=== PATIENT | female | born 1955 | race Caucasian/White ===

== ENCOUNTER 2017-01-28 13:57 | Inpatient (IN) ==
[2017-01-28] MEDS ORDERED: 0.9 % Sodium Chloride 1,000 ML IVC ONE ×2 (14:25→15:51)
--- NOTE | 2017-01-28 14:30 | Emergency Department Note ---
START Narrative - START START: I examined this patient and my medical decision-making was reviewed with the CARD PROCESSING CLERK/PA/Advanced Practice Nurse/Resident Physician. I agree with the documented findings, disposition and treatment plan as described except to the extent set forth below. ED attending note: Patient seen with emergency medicine resident Dr LOVING. We independently evaluated the patient. We independently had [id number] contact with the patient. Please see a copy of his note for details of the history and physical, evaluation, management and disposition of this emergency Department patient. 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 Weakness and cough as well foul-smelling urine. She has chronic Chandra which was just changed last week. Appears cloudy on the Chandra catheter 2. Patient will get a CT to rule out acute bleed she is on Plavix. Patient is type II diabetic will check for blood chemistries. We will check for causes of sepsis. Admission is strongly anticipated. Provided 40 minutes critical care service for this patient. She appears ill but not toxic. Labs and disposition pending
[2017-01-28] MEDS ORDERED: methylPREDNISolone 125 MG/2 ML VIAL IVP ONE (15:02)
[2017-01-28] MEDS ORDERED: Ipratropium/Albuterol Neb 3 ML IH ONE (15:02)
--- NOTE | 2017-01-28 15:06 | Emergency Department Note ---
Disposition Clinical Impression: Lactic acidosis, Severe sepsis, NSTEMI (non-ST elevated myocardial infarction) , Respiratory acidosis UTI (urinary tract infection) Qualifiers: Urinary tract infection type: catheter-associated UTI Indwelling urinary catheter type: indwelling urethral catheter Encounter type: initial encounter Qualified Code(s): T83.511A - Infection and inflammatory reaction due to indwelling urethral catheter, initial encounter; N39.0 - Urinary tract infection , site not specified Disposition: Admitted As Inpatient Condition: Serious Time of Disposition: 19:20 Weakness HPI - General Chief complaint: ED General Medical Stated complaint: multiple complaints Time Seen by Provider: 01/28/17 14:18 Source: patient, family, EMS Mode of arrival: wheelchair Limitations: altered mental status Nursing Notes Reviewed: Yes Vital Signs Reviewed: Yes - History of Present Illness HPI Narrative: 61-year-old female history of hypertension, hyperlipidemia, CVA, CAD status post 1 stent, diabetes on metformin, presents with generalized weakness and slurred speech last known well was yesterday. History of 4 CVAs with right- sided deficits at baseline. She denies any chest pain, has some shortness of breath, she was almost unresponsive this morning when she was trying to be woken up by her family member, and she had a blood sugar of 480 by EMS, she is normally not insulin-dependent. Patient states that she has some slurred speech as well and her family verifies that she is slurred speech but her deficits are at baseline she has complete paralysis of her right upper and lower extremity, and some facial droop at baseline. She also has a chronic Chandra catheter, this was changed one week ago, she has had this for about a year , and has had multiple urinary tract infections in the past. She has home health and takes care of her at baseline. Initially in squad she was tachypneic with a sat 63% before arrival Pt Subjective Complaint: generalized weakness/fatigue Onset (ago): hour(s) (12) Duration: intermittent Location: generalized Migration: none Pain Severity: moderate Pain Scale: 5 If pain, quality: aching Improves with: none Worsens with: none Associated symptoms: Reports: confusion. Denies: chest pain, dark stools, diaphoresis, dysuria, easy bruising, fever/chills - Related Data Home Medications Medication Instructions Recorded Confirmed Aspirin [Lo-Dose Aspirin EC] 81 mg PO DAILY 01/28/17 01/28/17 Beclomethasone Diprop 40mcg [Qvar 1 puff IH BID 01/28/17 01/28/17 40 mcg] Cholecalciferol (Vitamin D3) 1,000 unit PO DAILY 01/28/17 01/28/17 [Vitamin D] Clopidogrel [Plavix] 75 mg PO DAILY 01/28/17 01/28/17 Cyclobenzaprine [Flexeril] 10 mg PO TID PRN 01/28/17 01/28/17 Fenofibrate Nanocrystallized 160 mg PO DAILY 01/28/17 01/28/17 [Triglide] Furosemide [Lasix] 40 mg PO DAILY 01/28/17 01/28/17 Gabapentin [Neurontin] 100 mg PO TID 01/28/17 01/28/17 Guaifenesin [Mucinex] 600 mg PO BID PRN 01/28/17 01/28/17 Insulin ASPART [Novolog Flexpen] 7 unit SQ TIDAC MDD plus sliding 01/28/1701/28 sale Insulin Glargine,Hum.rec.anlog 25 unit SQ HS 01/28/17 01/28/17 [Lantus Solostar] Ipratropium/Albuterol Neb [Duoneb] 3 ml IH Q6HR PRN 01/28/17 01/28/17 Lansoprazole [Prevacid] 30 mg PO DAILY 01/28/17 01/28/17 Lisinopril [Zestril] 20 mg PO DAILY 01/28/17 01/28/17 Magnesium Oxide [Magnesium] 400 mg PO DAILY 01/28/17 01/28/17 Metformin HCl [Glucophage] 1,000 mg PO BID 01/28/17 01/28/17 Metoprolol [Lopressor] 100 mg PO BID 01/28/17 01/28/17 Multivitamin [Multi-Day Vitamins] 1 tab PO DAILY 01/28/17 01/28/17 [place]-3/Dha/Epa/Fish Oil [Fish Oil 2,000 mg PO BID 01/28/17 01/28/17 1,000 mg Softgel] Oxycodone HCl/Acetaminophen 1 tab PO Q6H PRN 01/28/17 01/28/17 [Percocet 7.5-325 mg Tablet] Petrolatum,White [Aloe [place]] 1 appl TP TID 01/28/17 01/28/17 Potassium Chloride [Klor-Con 10] 20 meq PO DAILY 01/28/17 01/28/17 Ropinirole HCl [Requip] 0.25 mg PO HS 01/28/17 01/28/17 Rosuvastatin [Crestor] 20 mg PO HS 01/28/17 01/28/17 Sertraline [Zoloft] 50 mg PO DAILY 01/28/17 01/28/17 Theophylline Anhydrous [Mateo-24] 200 mg PO DAILY 01/28/17 01/28/17 Tiotropium [Spiriva] 1 cap IH DAILY 01/28/17 01/28/17 amLODIPine [Norvasc] 5 mg PO DAILY 01/28/17 01/28/17 traZODone [TraZODone] 25 - 50 mg PO HS 01/28/17 01/28/17 Allergies Allergy/AdvReac Type Severity Reaction Status Date / Time Iodinated Contrast- Oral and Allergy Anaphylaxis Verified 11/28/16 17:51 IV Dye [Iodinated Contrast Media - Oral and] Limitations: ROS unobtainable due to patients medical condition (Review of systems minimally obtained by patient as below secondary to AMS) Cardiovascular: Reports: as per HPI, dyspnea on exertion. Denies: chest pain Respiratory: Reports: as per HPI, dyspnea Gastrointestinal: Denies: abdominal pain Genitourinary: Reports: other (catheter for urine) Musculoskeletal: Denies: back pain Neurological: Denies: headache Past Medical History - Past Medical History Attestation: Yes The following information was validated with the patient. Source: patient Medical history: Reports: cancer, CHF, COPD, coronary artery disease, CVA, DVT, diabetes, hyperlipidemia, myocardial infarction Surgical history: Reports: cancer surgery, carotid endarterectomy, coronary bypass (CABG), LE vascular intervention Psychiatric history: Reports: depression - Social History Smoking Status: Current every day smoker Smokeless Tobacco Status: No Alcohol use: Reports: none Drug use: Reports: none Physical Exam Constitutional: Obese female appears moderately hypoxic oxygen sat 84% on 2 L, Tachypneic breathing at 22 breaths per minute. Eyes: PERRLA, sclera anicteric ENT & Mouth: NCAT, normal external ears bilaterally, MMM Neck: normal inspection, neck is supple Resp: Decreased breath sounds at the bases bilaterally no evidence of retractions, tachypnea CV: RRR, no m/g/r GI: normal inspection, soft, no guarding or rigidity Back: normal inspection, no tenderness to palpation no CVA tenderness Neuro: A&O2 to self and place not date right upper extremity 0 out of 5 muscle strength, right lower extremity 0 out of 5 muscle strength; left +5/5 uE and LE strength bilaterally : Foul-smelling urine, catheter with cloudy urine in the bag and in the tube MSK: no gross deformities, normal ROM UE and LE Skin: on limited exam, skin intact with no rashes or lesions - General Limitations: no limitations, altered mental status General appearance: obese - Head Head exam: atraumatic Course Course Narrative: 59-year-old female appears very weak, hypoxic and hyperglycemic in the field 400s blood sugar, concerned about DKA and sepsis suspect urinary tract infection , we will check urinalysis, basic lab work CBC BMP lactate with time lactate, giving fluid boluses no evidence of severe sepsis at this time but if she does meet criteria for severe sepsis we will give a 30 mL Per kg bolus, denies chest pain, EKG shows early repolarization, no ischemic changes, possible old AK with Q waves in lead 3 which is consistent with her history of stents. Also had a VBG, but hydroxybutyric acid, and 3 DuoNeb nebs with solu Medrol given diminished lung sounds COPD and hypoxic. - Reevaluation(s) Reevaluation #1: Patient is evidence of respiratory acidosis as well as metabolic acidosis with lactate of 3.4, given tachypnea, tachycardia, patient meets criteria for severe sepsis with lactic acidosis, plan to start patient on DUONEBS, SATS NOW 97%, compensated resp acidosis, VANC and Zosyn fo RCoverage presumed urosepsis, currently they are unable to get a urinalysis sent because of a clot in her Chandra, but we will send this, plan to treat empirically at this point ordered 30 mL per kg bolus which is 2700 mL. Time: 15:56 Reevaluation #2: Due to hypotension only able to get 200 mL an, the patient was and uric, we placed a Chandra catheter and were able to send the urine shows evidence of UTI, given altered mental state UTI and lactic acidosis concerning for severe sepsis , given 30 mL perking bolus and started empirically on vanc and Zosyn central venous catheter was also placed, S Severe Sepsis/Septic Shock Re-Evaluation: I reassessed the patient's volume status and tissue perfusion, performing a full cardiopulmonary exam, skin examination, peripheral pulses evaluation, I assessed their vital signs and capillary refill, and based on my findings found that the patient was volume responsive to their 30mL/kg crystalloid bolus. Time: 17:19 Reevaluation #3: Additional evaluation prior to going to the floor to [facility], patient had continued bleeding out of her IJ site, I sterilely prepped this neck, and obtained verbal consent from the patient, and out was performed, then I took the dressing down, reapplied ChloraPrep, placed 2 u stitches with 2-0 Ethilon, and reapplied more ChloraPrep, placed a Biopatch, and replaced dressing, and hemostasis was achieved Time: 19:17 Vital Signs Temperature 98.4 F 01/28/17 14:07 Pulse Rate 94 01/28/17 14:07 Respiratory Rate 18 01/28/17 14:07 Blood Pressure 113/69 01/28/17 14:07 O2 Sat by Pulse Oximetry 83 01/28/17 14:07 Temperature 98.4 F 01/28/17 14:07 Pulse Rate 96 01/28/17 18:30 Respiratory Rate 16 01/28/17 18:30 Blood Pressure 148/70 01/28/17 18:30 O2 Sat by Pulse Oximetry 90 01/28/17 18:30 Oxygen Delivery Oxygen Delivery Nasal Cannula Procedures - Central Line Placement Right IJ Central Line Inserted*: Yes Central Line Catheter Replacement*: No Central Line Insertion: emergent Consent Obtained: written consent Procedural Pause: verify patient name and date of , timeout performed per policy, nasim and assess the site, assemble equipment and verify supplies, perform hand hygiene Patient Placed on Monitor/Pulse Ox: Yes During the Procedure: clinician is wearing sterile gloves, cap, mask,& gown during insertion, sterile field and sterile technique are maintained, patient's face is covered with drape or mask and wearing a cap, everyone in room is wearing a mask Central Line Prep: Chlorhexidine scrub, sterile drapes applied Prep the Procedure Site: apply chloraprep to the skin using a back and forth scrubbing motion, allow prep to dry, drape the patient with a full body drape Local Anesthetic: lidocaine 1% Amount of anesthesia used (mL): 5 Ultrasound Used for Placement: Yes Central Line Lumen Inserted: triple Post Procedure: sutured in place, good blood return, all ports aspirated, flushed, capped, sterile dressing applied, guide wire removed and visualized, dressing is dated Post Procedure X-Ray: tip of catheter in good position, no pneumothorax seen Patient Tolerated Procedure: well, no complications Complications: none Name of Clinician Inserting Central Line: Bobby Fritz DO R1 Clinician Assisting/Completing Checklist: Pacheco Crooks DO R4, Attending Dr Simental Date: 01/28/17 Time: 17:33 Weakness - MDM Narrative Medical decision making narrative: 59-year-old female with an STEMI, sepsis severe based on tahcypneic and tachycardic HR 94 Breathing 22 resp/minute on my exam, lactic acidosis 3.4, started on broad-spectrum antibiotics and 30 mL per kg bolus was given as per sepsis protocol, repeat lactatte drawn before 6 hrs in the ED she was fluid responsive after physical exam reassessment, the right IJ was placed for fluids antibiotics due to the one peripheral IV. And possible need for hemodynamic monitoring or vasopressors she did keep a good blood pressure, and was transferred to the floor to [facility] in stable condition. - Differential Diagnosis Differential Diagnosis: Likely: hypoglycemia, rhabdomyolysis, sepsis/infection, dehydration, [place] - Medical Records Medical records reviewed: Yes I reviewed the patient's medical records. - Lab Data Lab results reviewed: Yes I reviewed the patient's lab results. Result diagrams: 01/28/17 15:23 01/28/17 15:23 Lab Results 01/28/17 01/28/17 01/28/17 Range/Units 15:23 15:23 15:23 WBC 10.0 (4.3-11.1) K/mcL RBC 4.92 (3.82-4.97) M/mcL Hgb 11.4 L (11.5-15.4) g/dL Hct 39.7 (35.3-44.9) % MCV 80.7 L (83.0-100.0) fL MCH 23.2 L (28.0-33.3) pg MCHC 28.7 L (31.6-35.5) g/dL RDW 16.6 H (11.5-14.5) % Plt Count 313 (140-400) K/mcL MPV 11.6 (9.4-12.4) fL Immature Gran % 0.6 (0-4) % Seg Neutrophils % 85.1 % Lymphocytes % 11.3 % Monocytes % 2.7 % Eosinophils % 0.1 % Basophils % 0.2 % Neutrophils # 8.6 (1.6-8.9) K/mcL Lymphocytes # 1.1 (0.6-4.6) K/mcL Monocytes # 0.3 (0.0-1.3) K/mcL Eosinophils # 0.0 (0.0-0.6) K/mcL Basophils # 0.0 (0.0-0.2) K/mcL Platelet Estimate Normal (Normal) Immature Plt Fraction 9.9 H (1.1-6.1) % Polychromasia 1+ A (Not Present) PT 12.4 H (9.4-12.1) Seconds INR 1.1 APTT 28.3 (26.0-36.0) Seconds VBG pH (7.32-7.42) pH Units VBG pCO2 (41-51) mmHg VBG pO2 (25-40) mmHg VBG HCO3 (21-27) mEq/L Sodium 136 (136-145) mEq/L Potassium 3.4 L (3.5-4.5) mEq/L Chloride 93 L (98-109) mEq/L Carbon Dioxide 34 H (19-29) mEq/L BUN 13 (7-20) mg/dL Creatinine 0.88 (0.57-1.11) mg/dL Est GFR ( Amer) > 60 (> 60) Est GFR (Non-Af Amer) > 60 (> 60) BUN/Creatinine Ratio 15 (6-26) Glucose 375 H (70-99) mg/dL Calculated Osmolality 297 (280-300) Lactic Acid (0.5-2.2) mmol/L Calcium 9.0 (8.6-10.8) mg/dL Phosphorus 4.6 (2.3-4.7) mg/dL Magnesium 1.2 L (1.6-2.6) mg/dL Total Bilirubin 0.3 (0.2-1.2) mg/dL Direct Bilirubin 0.1 (0.0-0.5) mg/dL Indirect Bilirubin 0.2 (0.0-1.2) mg/dL AST 22 (5-34) Units/L ALT 14 (0-55) Units/L Alkaline Phosphatase 109 (38-126) Units/L Ammonia (18-72) mcmol/L Troponin I (0-0.03) ng/mL Serum Total Protein 8.5 H (6.0-8.3) g/dL Albumin 3.0 L (3.5-5.0) g/dL Globulin 5.5 H (2.4-3.5) g/dL Albumin/Globulin Ratio 0.5 L (1.1-2.2) Beta-Hydroxybutyric Acd (0.02-0.27) mmol/L TSH 0.464 (0.350-4.840) mcIU/mL Urine Color (Yellow) Urine Clarity (Clear) Urine pH (5.0-8.0) pH Units Ur Specific [place] (1.010-1.025) Urine Protein (Neg-Trace) mg/dL Urine Glucose (UA) (Normal) mg/dL Urine Ketones (Negative) mg/dL Urine Blood (Negative) Urine Nitrite (Negative) Urine Bilirubin (Negative) Urine Urobilinogen (Normal) mg/dL Ur Leukocyte Esterase (Negative) Urine Microscopic RBC (0-3) per hpf Urine Microscopic WBC (0-3) per hpf Ur Squamous Epith Cells (None-Few) per lpf Amorphous Sediment (Few) Urine Bacteria (None-Few) per hpf Ur Culture Indicated? (NO) Urine Opiates Screen (Ciafyb=878) ng/mL Ur Barbiturates Screen (Szrjlf=748) ng/mL Ur Phencyclidine Scrn (Cutoff=25) ng/mL Ur Amphetamines Screen (Njnuas=3165) ng/mL U Benzodiazepines Scrn (Xitgos=621) ng/mL Urine Cocaine Screen (Cutoff= 300) ng/mL U Marijuana (THC) Screen (Cutoff = 50) ng/mL Ethyl Alcohol < 10 (0-10) mg/dL 01/28/17 01/28/17 01/28/17 Range/Units 15:23 15:23 15:23 WBC (4.3-11.1) K/mcL RBC (3.82-4.97) M/mcL Hgb (11.5-15.4) g/dL Hct (35.3-44.9) % MCV (83.0-100.0) fL MCH (28.0-33.3) pg MCHC (31.6-35.5) g/dL RDW (11.5-14.5) % Plt Count (140-400) K/mcL MPV (9.4-12.4) fL Immature Gran % (0-4) % Seg Neutrophils % % Lymphocytes % % Monocytes % % Eosinophils % % Basophils % % Neutrophils # (1.6-8.9) K/mcL Lymphocytes # (0.6-4.6) K/mcL Monocytes # (0.0-1.3) K/mcL Eosinophils # (0.0-0.6) K/mcL Basophils # (0.0-0.2) K/mcL Platelet Estimate (Normal) Immature Plt Fraction (1.1-6.1) % Polychromasia (Not Present) PT (9.4-12.1) Seconds INR APTT (26.0-36.0) Seconds VBG pH (7.32-7.42) pH Units VBG pCO2 (41-51) mmHg VBG pO2 (25-40) mmHg VBG HCO3 (21-27) mEq/L Sodium (136-145) mEq/L Potassium (3.5-4.5) mEq/L Chloride (98-109) mEq/L Carbon Dioxide (19-29) mEq/L BUN (7-20) mg/dL Creatinine (0.57-1.11) mg/dL Est GFR ( Amer) (> 60) Est GFR (Non-Af Amer) (> 60) BUN/Creatinine Ratio (6-26) Glucose (70-99) mg/dL Calculated Osmolality (280-300) Lactic Acid 3.2 H (0.5-2.2) mmol/L Calcium (8.6-10.8) mg/dL Phosphorus (2.3-4.7) mg/dL Magnesium (1.6-2.6) mg/dL Total Bilirubin (0.2-1.2) mg/dL Direct Bilirubin (0.0-0.5) mg/dL Indirect Bilirubin (0.0-1.2) mg/dL AST (5-34) Units/L ALT (0-55) Units/L Alkaline Phosphatase (38-126) Units/L Ammonia 22 (18-72) mcmol/L Troponin I 0.19 H* (0-0.03) ng/mL Serum Total Protein (6.0-8.3) g/dL Albumin (3.5-5.0) g/dL Globulin (2.4-3.5) g/dL Albumin/Globulin Ratio (1.1-2.2) Beta-Hydroxybutyric Acd (0.02-0.27) mmol/L TSH (0.350-4.840) mcIU/mL Urine Color (Yellow) Urine Clarity (Clear) Urine pH (5.0-8.0) pH Units Ur Specific [place] (1.010-1.025) Urine Protein (Neg-Trace) mg/dL Urine Glucose (UA) (Normal) mg/dL Urine Ketones (Negative) mg/dL Urine Blood (Negative) Urine Nitrite (Negative) Urine Bilirubin (Negative) Urine Urobilinogen (Normal) mg/dL Ur Leukocyte Esterase (Negative) Urine Microscopic RBC (0-3) per hpf Urine Microscopic WBC (0-3) per hpf Ur Squamous Epith Cells (None-Few) per lpf Amorphous Sediment (Few) Urine Bacteria (None-Few) per hpf Ur Culture Indicated? (NO) Urine Opiates Screen (Bjadcf=000) ng/mL Ur Barbiturates Screen (Nkmirt=211) ng/mL Ur Phencyclidine Scrn (Cutoff=25) ng/mL Ur Amphetamines Screen (Wenmwn=8555) ng/mL U Benzodiazepines Scrn (Crldfa=000) ng/mL Urine Cocaine Screen (Cutoff= 300) ng/mL U Marijuana (THC) Screen (Cutoff = 50) ng/mL Ethyl Alcohol (0-10) mg/dL 01/28/17 01/28/17 01/28/17 Range/Units 15:23 15:23 16:20 WBC (4.3-11.1) K/mcL RBC (3.82-4.97) M/mcL Hgb (11.5-15.4) g/dL Hct (35.3-44.9) % MCV (83.0-100.0) fL MCH (28.0-33.3) pg MCHC (31.6-35.5) g/dL RDW (11.5-14.5) % Plt Count (140-400) K/mcL MPV (9.4-12.4) fL Immature Gran % (0-4) % Seg Neutrophils % % Lymphocytes % % Monocytes % % Eosinophils % % Basophils % % Neutrophils # (1.6-8.9) K/mcL Lymphocytes # (0.6-4.6) K/mcL Monocytes # (0.0-1.3) K/mcL Eosinophils # (0.0-0.6) K/mcL Basophils # (0.0-0.2) K/mcL Platelet Estimate (Normal) Immature Plt Fraction (1.1-6.1) % Polychromasia (Not Present) PT (9.4-12.1) Seconds INR APTT (26.0-36.0) Seconds VBG pH 7.28 L (7.32-7.42) pH Units VBG pCO2 78 H (41-51) mmHg VBG pO2 33 (25-40) mmHg VBG HCO3 36.7 H (21-27) mEq/L Sodium (136-145) mEq/L Potassium (3.5-4.5) mEq/L Chloride (98-109) mEq/L Carbon Dioxide (19-29) mEq/L BUN (7-20) mg/dL Creatinine (0.57-1.11) mg/dL Est GFR ( Amer) (> 60) Est GFR (Non-Af Amer) (> 60) BUN/Creatinine Ratio (6-26) Glucose (70-99) mg/dL Calculated Osmolality (280-300) Lactic Acid (0.5-2.2) mmol/L Calcium (8.6-10.8) mg/dL Phosphorus (2.3-4.7) mg/dL Magnesium (1.6-2.6) mg/dL Total Bilirubin (0.2-1.2) mg/dL Direct Bilirubin (0.0-0.5) mg/dL Indirect Bilirubin (0.0-1.2) mg/dL AST (5-34) Units/L ALT (0-55) Units/L Alkaline Phosphatase (38-126) Units/L Ammonia (18-72) mcmol/L Troponin I (0-0.03) ng/mL Serum Total Protein (6.0-8.3) g/dL Albumin (3.5-5.0) g/dL Globulin (2.4-3.5) g/dL Albumin/Globulin Ratio (1.1-2.2) Beta-Hydroxybutyric Acd 0.27 (0.02-0.27) mmol/L TSH (0.350-4.840) mcIU/mL Urine Color Yellow (Yellow) Urine Clarity Turbid A (Clear) Urine pH 5.0 (5.0-8.0) pH Units Ur Specific [place] 1.024 (1.010-1.025) Urine Protein 100 H (Neg-Trace) mg/dL Urine Glucose (UA) >=1000 H (Normal) mg/dL Urine Ketones Negative (Negative) mg/dL Urine Blood Large H (Negative) Urine Nitrite Negative (Negative) Urine Bilirubin Negative (Negative) Urine Urobilinogen Normal (Normal) mg/dL Ur Leukocyte Esterase Moderate H (Negative) Urine Microscopic RBC TNTC H (0-3) per hpf Urine Microscopic WBC 15-30 H (0-3) per hpf Ur Squamous Epith Cells Few (None-Few) per lpf Amorphous Sediment Many H (Few) Urine Bacteria Many H (None-Few) per hpf Ur Culture Indicated? YES A (NO) Urine Opiates Screen (Uadlmz=464) ng/mL Ur Barbiturates Screen (Fdchwr=909) ng/mL Ur Phencyclidine Scrn (Cutoff=25) ng/mL Ur Amphetamines Screen (Zlobdf=7373) ng/mL U Benzodiazepines Scrn (Iydmfc=149) ng/mL Urine Cocaine Screen (Cutoff= 300) ng/mL U Marijuana (THC) Screen (Cutoff = 50) ng/mL Ethyl Alcohol (0-10) mg/dL 01/28/17 Range/Units 16:20 WBC (4.3-11.1) K/mcL RBC (3.82-4.97) M/mcL Hgb (11.5-15.4) g/dL Hct (35.3-44.9) % MCV (83.0-100.0) fL MCH (28.0-33.3) pg MCHC (31.6-35.5) g/dL RDW (11.5-14.5) % Plt Count (140-400) K/mcL MPV (9.4-12.4) fL Immature Gran % (0-4) % Seg Neutrophils % % Lymphocytes % % Monocytes % % Eosinophils % % Basophils % % Neutrophils # (1.6-8.9) K/mcL Lymphocytes # (0.6-4.6) K/mcL Monocytes # (0.0-1.3) K/mcL Eosinophils # (0.0-0.6) K/mcL Basophils # (0.0-0.2) K/mcL Platelet Estimate (Normal) Immature Plt Fraction (1.1-6.1) % Polychromasia (Not Present) PT (9.4-12.1) Seconds INR APTT (26.0-36.0) Seconds VBG pH (7.32-7.42) pH Units VBG pCO2 (41-51) mmHg VBG pO2 (25-40) mmHg VBG HCO3 (21-27) mEq/L Sodium (136-145) mEq/L Potassium (3.5-4.5) mEq/L Chloride (98-109) mEq/L Carbon Dioxide (19-29) mEq/L BUN (7-20) mg/dL Creatinine (0.57-1.11) mg/dL Est GFR ( Amer) (> 60) Est GFR (Non-Af Amer) (> 60) BUN/Creatinine Ratio (6-26) Glucose (70-99) mg/dL Calculated Osmolality (280-300) Lactic Acid (0.5-2.2) mmol/L Calcium (8.6-10.8) mg/dL Phosphorus (2.3-4.7) mg/dL Magnesium (1.6-2.6) mg/dL Total Bilirubin (0.2-1.2) mg/dL Direct Bilirubin (0.0-0.5) mg/dL Indirect Bilirubin (0.0-1.2) mg/dL AST (5-34) Units/L ALT (0-55) Units/L Alkaline Phosphatase (38-126) Units/L Ammonia (18-72) mcmol/L Troponin I (0-0.03) ng/mL Serum Total Protein (6.0-8.3) g/dL Albumin (3.5-5.0) g/dL Globulin (2.4-3.5) g/dL Albumin/Globulin Ratio (1.1-2.2) Beta-Hydroxybutyric Acd (0.02-0.27) mmol/L TSH (0.350-4.840) mcIU/mL Urine Color (Yellow) Urine Clarity (Clear) Urine pH (5.0-8.0) pH Units Ur Specific [place] (1.010-1.025) Urine Protein (Neg-Trace) mg/dL Urine Glucose (UA) (Normal) mg/dL Urine Ketones (Negative) mg/dL Urine Blood (Negative) Urine Nitrite (Negative) Urine Bilirubin (Negative) Urine Urobilinogen (Normal) mg/dL Ur Leukocyte Esterase (Negative) Urine Microscopic RBC (0-3) per hpf Urine Microscopic WBC (0-3) per hpf Ur Squamous Epith Cells (None-Few) per lpf Amorphous Sediment (Few) Urine Bacteria (None-Few) per hpf Ur Culture Indicated? (NO) Urine Opiates Screen Negative (Frhggm=940) ng/mL Ur Barbiturates Screen Negative (Shkkeb=680) ng/mL Ur Phencyclidine Scrn Negative (Cutoff=25) ng/mL Ur Amphetamines Screen Negative (Zmxipf=7167) ng/mL U Benzodiazepines Scrn Negative (Ilbvtw=084) ng/mL Urine Cocaine Screen Negative (Cutoff= 300) ng/mL U Marijuana (THC) Screen Negative (Cutoff = 50) ng/mL Ethyl Alcohol (0-10) mg/dL - EKG Data EKG attestation: Yes I reviewed and interpreted this EKG. EKG shows normal: sinus rhythm Rate: normal (94 bpm WI 156 QRS 112 QTc 457 early repolarization inferior leads with no reciprocal changes) Q waves: III When compared to previous EKG there are: previous EKG unavailable Interpretation: nonspecific ST-T wave changes - Core Measures AMI Core Measures Followed: No
[2017-01-28 15:35] LABS: Eosinophils % 0.1 %; Hematocrit 39.7 % (35.3-44.9); Hemoglobin 11.4 g/dL (11.5-15.4); Immature Platelets 9.9 % (1.1-6.1); Mean Corpuscular HGB Conc 28.7 g/dL (31.6-35.5); Mean Corpuscular Hemoglobin 23.2 pg (28.0-33.3); Mean Corpuscular Volume 80.7 fL (83.0-100.0); Mean Platelet Volume 11.6 fL (9.4-12.4); Monocytes # 0.3 K/mcL (0.0-1.3); Platelet Count 313 K/mcL (140-400); Red Blood Count 4.92 M/mcL (3.82-4.97); Red Cell Distribution Width 16.6 % (11.5-14.5)
[2017-01-28 15:36] LABS: VBG HCO3 36.7 mEq/L (21-27); VBG PH 7.28 pH Units (7.32-7.42)
[2017-01-28 15:37] LABS: Basophils % 0.2 %; Immature Granulocytes % 0.6 % (0-4); Lymphocytes % 11.3 %; Monocytes % 2.7 %; Neutrophils # 8.6 K/mcL (1.6-8.9); Segmented Neutrophils % 85.1 %
[2017-01-28 15:39] LABS: INR 1.1; Lymphocytes # 1.1 K/mcL (0.6-4.6); Prothrombin Time 12.4 Seconds (9.4-12.1)
[2017-01-28 15:41] LABS: Activated Partial Thrombo Time 28.3 Seconds (26.0-36.0)
[2017-01-28 15:50] LABS: Alanine Aminotransferase 14 Units/L (0-55); Albumin/Globulin Ratio 0.5 (1.1-2.2); Alkaline Phosphatase 109 Units/L (38-126); Aspartate Amino Transferase 22 Units/L (5-34); BUN/Creatinine Ratio 15 (6-26); Bilirubin,Direct 0.1 mg/dL (0.0-0.5); Bilirubin,Indirect 0.2 mg/dL (0.0-1.2); Bilirubin,Total 0.3 mg/dL (0.2-1.2); Blood Urea Nitrogen 13 mg/dL (7-20); Carbon Dioxide 34 mEq/L (19-29); Chloride 93 mEq/L (98-109); Globulin 5.5 g/dL (2.4-3.5); Glucose 375 mg/dL (70-99); Osmolality,Calculated 297 (280-300); Potassium 3.4 mEq/L (3.5-4.5); Sodium 136 mEq/L (136-145); Total Protein 8.5 g/dL (6.0-8.3); eGFR For African Americans > 60 (> 60); eGFR For Non-African Americans > 60 (> 60)
[2017-01-28 15:52] LABS: Ethanol < 10 mg/dL (0-10)
[2017-01-28] MEDS ORDERED: Vancomycin 1,000 MG in D5% in Water 250 ML IVPB ONE (15:53)
[2017-01-28] MEDS ORDERED: Piperacillin/Tazobactam 3.375 GM in D5% in Water (Mini-Bag+) 100 ML IVPB ONE (15:53)
[2017-01-28] MEDS ORDERED: Insulin Human Regular 10 UNIT in 0.9 % Sodium Chloride 10 ML IV ONE (15:54)
[2017-01-28 16:05] LABS: Magnesium 1.2 mg/dL (1.6-2.6); Phosphorous 4.6 mg/dL (2.3-4.7)
[2017-01-28 16:10] LABS: Thyroid Stimulating Hormone 0.464 mcIU/mL (0.350-4.840)
[2017-01-28 16:18] LABS: Platelet Estimate Normal (Normal); Polychromasia 1+ (Not Present)
[2017-01-28] MEDS ORDERED: Aspirin 81 MG TAB.CHEW PO STA (16:18)
[2017-01-28 16:29] LABS: Bilirubin,Urine Negative (Negative); Blood,Urine Large (Negative); Clarity,Urine Turbid (Clear); Color,Urine Yellow (Yellow); Glucose,Urine (UA) >=1000 mg/dL (Normal); Ketones,Urine Negative (Negative); Leukocyte Esterase,Urine Moderate (Negative); Nitrite,Urine Negative (Negative); Protein,Urine 100 mg/dL (Neg-Trace); Specific Gravity,Urine 1.024 (1.010-1.025); Urobilinogen,Urine Normal (Normal)
[2017-01-28 16:35] LABS: Amphetamine Screen,Urine Negative ng/mL (Cutoff=1000); Barbiturate Screen,Urine Negative ng/mL (Cutoff=200); Benzodiazepines Screen,Urine Negative ng/mL (Cutoff=200); Cannabinoid Screen,Urine Negative ng/mL (Cutoff = 50); Cocaine Screen,Urine Negative ng/mL (Cutoff= 300); Opiate Screen,Urine Negative ng/mL (Cutoff=300); Phencyclidine Screen,Urine Negative ng/mL (Cutoff=25)
[2017-01-28 16:40] LABS: RBC,Urine TNTC per hpf (0-3)
[2017-01-28 16:45] LABS: WBC,Urine 15-30 per hpf (0-3)
[2017-01-28 16:46] LABS: Amorphous Sediment,Urine Many (Few); Bacteria,Urine Many per hpf (None-Few); Squamous Epithelial Cell,Urine Few per lpf (None-Few)
[2017-01-28] MEDS ORDERED: Lidocaine/EPI 1:100k 1% 50 ML VIAL INFILT ONE (18:47)
[2017-01-28] MEDS ORDERED: Lidocaine/EPI 1:200k 1% PF 10 ML VIAL ONE (18:50)
[2017-01-28] MEDS ORDERED: Acetaminophen 325 MG TABLET PO PRN (21:20)
[2017-01-28] MEDS ORDERED: *HR* Morphine 2 MG/ML SYRINGE IVP PRN (21:20)
[2017-01-28] MEDS ORDERED: Naloxone 0.4 MG/ML INJ IVP PRN (21:20)
[2017-01-28] MEDS ORDERED: Ondansetron 4 MG/2 ML VIAL IVP PRN (21:20)
[2017-01-28] MEDS ORDERED: 0.9 % Sodium Chloride w KCl 20 MEQ/1,000 ML MLS IVC SCH (21:45)
[2017-01-28] MEDS ORDERED: Dextrose Gel 15 GM PO PRN ×2 (21:51)
[2017-01-28] MEDS ORDERED: D5% in Water 1,000 ML IVC PRN (21:51)
[2017-01-28] MEDS ORDERED: *HR* Dextrose 50 % in Water (Syg) 50 ML SYRINGE IVP PRN (21:51)
--- NOTE | 2017-01-28 22:53 | Internal Med History&Physical ---
<NaomyjadajazlynLuis kent - Last Filed: 01/28/17 23:35> Date of Encounter: 01/28/17 Time of Encounter: 21:00 Assessment and Plan (1) Elevated troponin Current visit: Yes Status: Acute Patient presents with initial troponin of 0.19. Patient denies any chest pain or cardiac symptoms. EKG shows sinus rhythm with possible left atrial enlargement and inferior myocardial infarction (probably old). Patient to be placed on continuous cardiac telemetry with supplemental O2 and continuous SPO2 monitoring. Troponins to be trended 2. (2) SOB (shortness of breath) Current visit: Yes Status: Acute Patient presents with acute on chronic shortness of breath related to her current symptoms and history of COPD. Patient reports she currently smokes 3 PPD. Supplemental O2 at 3L with titration if SpO2 < 92% and continuous SpO2 monitoring ordered. DuoNebs Q4 ordered. Will monitor patient and vital signs. (3) UTI (urinary tract infection) Current visit: Yes Status: Acute Patient presents with history of chronic Chandra catheterization and UTIs. Patient 's initial urinalysis in ED shows need for urine cultures. IV ceftriaxone ordered for infection coverage. Follow-up labs ordered to monitor WBCs and lactic acid. Patient's WBC is 10.0, HR 94, RR 16. Patient does not currently meet sepsis criteria but will be monitored closely for signs of increased infection. Qualifiers: Urinary tract infection type: catheter-associated UTI Indwelling urinary catheter type: indwelling urethral catheter Encounter type: initial encounter Qualified Code(s): T83.511A - Infection and inflammatory reaction due to indwelling urethral catheter, initial encounter; N39.0 - Urinary tract infection , site not specified (4) HTN (hypertension) Current visit: Yes Status: Chronic Patient presents with history of chronic hypertension. Will monitor patient and vital signs and continue patient's Norvasc, lisinopril, and metoprolol. Qualifiers: Hypertension type: essential hypertension Qualified Code(s): I10 - Essential (primary) hypertension (5) HLD (hyperlipidemia) Current visit: Yes Status: Chronic Patient presents with history of chronic hyperlipidemia. Lipid panel ordered. Will continue patient's Crestor and Tricor. Qualifiers: Hyperlipidemia type: pure hypercholesterolemia Qualified Code(s): E78.00 - Pure hypercholesterolemia, unspecified; E78.0 - Pure hypercholesterolemia (6) Diabetes Current visit: Yes Status: Chronic Patient presents with history of chronic diabetes with insulin dependency that is uncontrolled. Patient's blood glucose on admission was 375. Will hold patient 's Metformin and order ow dose insulin sliding scale with hypoglycemic protocol. Diabetes education consult ordered. A1c ordered. Qualifiers: Diabetes mellitus type: type 2 Diabetes mellitus complication status: with unspecified complications Diabetes mellitus chcf insulin use: with chcf use Qualified Code(s): E11.8 - Type 2 diabetes mellitus with unspecified complications; Z79.4 - CHCF (current) use of insulin (7) DVT prophylaxis Current visit: Yes Status: Acute Patient to be placed on DVT prophylaxis due to admission protocol, bed rest status, and history of DVT. Heparin 5,000 units SQ Q12 ordered. Internal Medicine - H&P: HPI Chief complaint: AMS, generalized weakness Admitted From: Emergency Dept Plans for Post Hospital Care: Home History of present illness: Mrs. Lauren is a 61 year old female who presents from the ED with chief complaint of altered mental status, generalized weakness, and slurred speech. Patient had previous stroke which left right-sided paralysis. Patient's family states that her speech is residual effect of previous stroke, but her behavior is not her normal behavior. Patient's blood glucose was 480 as taken by EMS and was 375 on admission to the ED. Patient also has a Chandra catheter in place chronically due to previous stroke which has been in place for a year and changed last week. She reports multiple UTIs throughout the previous year. She denies recent illness, fever, chills, chest pain, nausea, vomiting, diarrhea, abdominal pain, dizziness, or syncope. Patient is short of breath during examination which her family states is also her baseline and that she uses home O2 at 3L daily via nasal cannula. Patient's initial troponin is 0.19 and lactic acid 3.2. Initial urinalysis indicates the need for urine cultures. CT of the head/brain w/o contrast in the ED shows no evidence of intracranial hemorrhage or mass effect. Patient will receive chest pain work-up with continuous cardiac telemetry, continuation of supplemental O2 and SpO2 monitoring, and trended troponins x2. Blood and urine cultures ordered and patient to receive IV ceftriaxone for infection coverage. Patient's potassium is currently 3.4 and magnesium is 1.2 so she will receive IV fluids with potassium and PO magnesium. Follow-up labs ordered for a.m. Patient is at high risk for infection based on history of UTIs and current symptoms and will be placed as inpatient status. Consults for PT, OT, Speech therapy, and [employer] placed. Patient to be monitored closely for increased signs of infection, respiratory and/or cardiac distress. Time spent with patient > 40 minutes. Past Med Surg Social Fam HX - Past Medical History Source: patient Medical history: cancer, CHF, COPD, coronary artery disease, CVA, DVT, diabetes , hyperlipidemia, myocardial infarction Psychiatric history: depression - Past Surgical History Surgical History: cancer surgery, carotid endarterectomy, coronary bypass (CABG) , LE vascular intervention - Social History Smoking Status: Current every day smoker Packs per day: 3 PPD Smokeless Tobacco Status: No Alcohol use: none Drug use: none Current living situation: Home, With Family Activity Level: Wheelchair bound Recent Out of Country Travel Within the Last 8 Weeks: No Exposure or Possible Exposure to Illness During Travel: No - Family History Mother Living Status: Hx Family Cancer: Yes (Renal) Hx Family Endocrine Disorder: Yes (DM) Internal Medicine - H&P: Meds Aspirin [Lo-Dose Aspirin EC] 81 mg PO DAILY 01/28/17 [History] Beclomethasone Diprop 40mcg [Qvar 40 mcg] 1 puff IH BID 01/28/17 [History] Cholecalciferol (Vitamin D3) [Vitamin D] 1,000 unit PO DAILY 01/28/17 [History] Clopidogrel [Plavix] 75 mg PO DAILY 01/28/17 [History] Cyclobenzaprine [Flexeril] 10 mg PO TID PRN 01/28/17 [History] Fenofibrate Nanocrystallized [Triglide] 160 mg PO DAILY 01/28/17 [History] Furosemide [Lasix] 40 mg PO DAILY 01/28/17 [History] Gabapentin [Neurontin] 100 mg PO TID 01/28/17 [History] Guaifenesin [Mucinex] 600 mg PO BID PRN 01/28/17 [History] Insulin ASPART [Novolog Flexpen] 7 unit SQ TIDAC MDD plus sliding sale 01/28/17 [History] Insulin Glargine,Hum.rec.anlog [Lantus Solostar] 25 unit SQ HS 01/28/17 [History ] Ipratropium/Albuterol Neb [Duoneb] 3 ml IH Q6HR PRN 01/28/17 [History] Lansoprazole [Prevacid] 30 mg PO DAILY 01/28/17 [History] Lisinopril [Zestril] 20 mg PO DAILY 01/28/17 [History] Magnesium Oxide [Magnesium] 400 mg PO DAILY 01/28/17 [History] Metformin HCl [Glucophage] 1,000 mg PO BID 01/28/17 [History] Metoprolol [Lopressor] 100 mg PO BID 01/28/17 [History] Multivitamin [Multi-Day Vitamins] 1 tab PO DAILY 01/28/17 [History] [place]-3/Dha/Epa/Fish Oil [Fish Oil 1,000 mg Softgel] 2,000 mg PO BID 01/28/17 [ History] Oxycodone HCl/Acetaminophen [Percocet 7.5-325 mg Tablet] 1 tab PO Q6H PRN [History] Petrolatum,White [Aloe [place]] 1 appl TP TID 01/28/17 [History] Potassium Chloride [Klor-Con 10] 20 meq PO DAILY 01/28/17 [History] Ropinirole HCl [Requip] 0.25 mg PO HS 01/28/17 [History] Rosuvastatin [Crestor] 20 mg PO HS 01/28/17 [History] Sertraline [Zoloft] 50 mg PO DAILY 01/28/17 [History] Theophylline Anhydrous [Mateo-24] 200 mg PO DAILY 01/28/17 [History] Tiotropium [Spiriva] 1 cap IH DAILY 01/28/17 [History] amLODIPine [Norvasc] 5 mg PO DAILY 01/28/17 [History] traZODone [TraZODone] 25 - 50 mg PO HS 01/28/17 [History] Allergies Iodinated Contrast- Oral and IV Dye [Iodinated Contrast Media - Oral and] Allergy (Verified 11/28/16 17:51) Anaphylaxis All Systems PM: A 10-system review of systems was performed and is negative for pertinent findings except as documented above in the HPI. - Constitutional Constitutional: no chills, no fever(s), no night sweats - EENT Eyes: no change in vision, no discharge, no pain, no photophobia Ears: no ear discharge, no ear pain, no tinnitus Nose, mouth and throat: no dysphagia, no nasal discharge, no neck pain, no sore throat - Breasts Breasts: as per HPI - Cardiovascular Cardiovascular ROS IM: as per HPI, dyspnea, no chest pain, no diaphoresis, no lightheadedness, no palpitations, no syncope - Respiratory Respiratory: as per HPI, dyspnea - Gastrointestinal Gastrointestinal: no abdominal pain, no diarrhea, no hematemesis, no hematochezia, no melena, no nausea, no vomiting - Genitourinary Genitourinary: no change in urinary stream, no dysuria, no flank pain, no hematuria Menstruation: as per HPI - Musculoskeletal Musculoskeletal ROS IM: no numbness, no tingling - Integumentary Integumentary IM: no rash, no unusual bruising - Neurological Neurological ROS: as per HPI, confusion, focal weakness, numbness, weakness ( Right-sided) - Psychiatric Psychiatric: as per HPI - Endocrine Endocrine IM: as per HPI - Hematologic/Lymphatic Hematologic/Lymphatic: no easy bruising - Allergic/Immunologic Allergic/Immunologic: as per HPI - Constitutional Vitals: Temp Pulse Resp BP Pulse Ox 98.5 F 99 20 165/80 87 01/28/17 20:01 01/28/17 20:01 01/28/17 20:01 01/28/17 20:01 01/28/17 20:01 General appearance: Present: cooperative, A&O X 3, pleasant, no acute distress, obese, answers questions appropriately - Head Head exam: Present: atraumatic, normocephalic - Eye Eye exam: Present: PERRL, conjuntiva pink, sclera anicteric Pupils: Present: PERRL - ENT ENT exam: Present: normal exam, normal external ear exam - Neck Neck exam general surgery: Present: normal inspection - Respiratory Respiratory exam: Present: CTAB. Absent: accessory muscle use, rales, rhonchi, wheezes - Cardiovascular Cardiovascular exam: Present: RRR, +S1, +S2. Absent: diastolic murmur, gallop, rubs, systolic murmur - GI/Abdominal GI/Abdominal exam: Present: normal bowel sounds, soft, no peritoneal signs. Absent: distended, tenderness - Rectal Rectal exam: Present: deferred - Additional comments: exam deferred. - Extremities Exam Extremities exam: Present: pedal edema (Right leg is cool, edematous, and has reduced pulse. ). Absent: calf tenderness, cyanotic - Back Exam Back exam: Present: normal inspection - Neurological Exam Neurological exam: Present: alert, oriented X3, strengths equal and symetr throughout (Right-sided paralysis from previous stroke), facial droop (Residual from previous stroke), speech deficit (Residual from previous stroke) - Psychiatric Psychiatric exam: Present: normal affect, normal mood - Skin Skin exam: Present: dry, intact Internal Med - H&P Results - Labs CBC & Chem 7: 01/28/17 15:23 01/28/17 15:23 - EKG Data EKG shows normal: sinus rhythm - EKG Data Prior EKG available for review: no EKG comments: 01/28/17 23:15 EKG dated 01/28/17 shows sinus rhythm with possible left atrial enlargement and inferior myocardial infarction (probably old). - Diagnostic Studies CT scan - head Additional comments: Impressions Head CT 01/28/17 14:25 IMPRESSION: No evidence of intracranial hemorrhage or mass effect. Remote right parietal occipital infarct and left cerebellar infarcts are again seen as well as white matter changes consistent with chronic small vessel ischemic disease. No obvious acute infarct. D/ / Mirna Powers MD / Mirna Powers MD Interpreting Provider: Mirna Powers MD Chest x-ray Additional comments: Impressions Chest X-Ray 01/28/17 14:25 IMPRESSION: 1. No acute abnormality detected. D/ / Jatin Chavira MD / Jatin Chavira MD Interpreting Provider: Jatin Chavira MD Chest X-Ray 01/28/17 17:06 IMPRESSION: Right internal jugular central venous catheter placement with tip projecting over the lower superior vena cava. No evidence of complication. D/ / Mirna Powers MD / Mirna Powers MD Interpreting Provider: Mirna Powers MD <Beverly Fraga - Last Filed: 01/29/17 00:45> Date of Encounter: 01/28/17 Time of Encounter: 21:15 Internal Medicine - H&P: HPI History of present illness: Ms. Lauren is a 61 year old female All Systems PM: A 10-system review of systems was performed and is negative for pertinent findings except as documented above in the HPI. - Constitutional Vitals: Temp Pulse Resp BP Pulse Ox 98.5 F 99 20 165/80 87 01/28/17 20:01 01/28/17 20:01 01/28/17 20:01 01/28/17 20:01 01/28/17 20:01 Internal Med - H&P Results - Labs CBC & Chem 7: 01/28/17 15:23 01/28/17 15:23 - Attending Attestation I examined this patient and my medical decision-making was reviewed with the nurse practitioner. I agree with the documented history of present illness, review of systems, past medical, surgical social and family histories and examination findings, disposition and treatment plan as described above except to any changes set forth below. 61-year-old female patient with history of essential hypertension, hyperlipidemia, diabetes mellitus type 2 presented to the ED with complaints of some confusion along with an episode of slurred speech. Patient has history of prior CVA with right-sided residual hemiparesis. Presently patient's speech is back to normal. In the ER, she was noticed to have significantly elevated blood sugars. CT scan of the head did not show any acute stroke. She denies any chest pain but her troponins were elevated on presentation at 0.19. On examination, heart sounds were normal. Patient is awake alert and oriented. Patient has right-sided pedal edema with some stasis dermatitis. Abdomen is soft and nontender. EKG shows sinus rhythm. With Q waves in the inferior leads. CT head shows remote right parietal occipital infarcts and left cerebellar infarcts. No acute infarct. Sepsis: Patient presenting with sepsis related to acute urinary tract infection. She does have elevated lactate level. We will trend lactate. IV hydration. Treat with intravenous antibiotics. Patient has had prior cultures positive for Proteus. This was sensitive to ceftriaxone. We will continue the same antibiotic for now. Elevated troponin: No chest pain. No abnormal EKG changes. We will trend troponins. If this rises further, will treat for possible acute non-ST elevation CO and consult cardiology. Otherwise this could be related to demand ischemia. Essential hypertension: Monitor blood pressure. Currently elevated. Continue home medications. Diabetes mellitus type 2: Uncontrolled. Will place patient on sliding scale insulin and long-acting insulin coverage. Diabetic diet. Monitor blood sugars closely. Hypokalemia and hypomagnesemia: Will replete.
[2017-01-28] MEDS ORDERED: Insulin LISPRO 300 UNITS/3 ML VIAL SQ SCH (23:00)
[2017-01-28] MEDS: Gabapentin 100 MG CAPSULE PO SCH (23:05)
[2017-01-28] MEDS: rOPINIRole 0.25 MG TABLET PO SCH (23:05)
[2017-01-28] MEDS: Magnesium Oxide 400 MG TABLET PO SCH (23:05)
[2017-01-28] MEDS: Metoprolol 100 MG TABLET PO SCH (23:05)
[2017-01-28] MEDS: Ipratropium/Albuterol Neb 3 ML IH SCH (23:09)
[2017-01-29] MEDS ORDERED: 0.9 % Sodium Chloride 1,000 ML IVC ONE (01:52)
[2017-01-29] MEDS: *HR* Enoxaparin 80 MG/0.8 ML SYRINGE SQ SCH ×3 (02:35→16:43)
[2017-01-29] MEDS: Insulin DETEMIR 100 UNIT/ML X5UNITS SQ SCH ×3 (02:35→22:24)
[2017-01-29] MEDS: Ipratropium/Albuterol Neb 3 ML IH SCH ×5 (03:46→20:53)
[2017-01-29 04:56] LABS: Hemoglobin 10.1 g/dL (11.5-15.4)
[2017-01-29 04:58] LABS: Basophils % 0.1 %; Hematocrit 34.2 % (35.3-44.9); Immature Granulocytes % 0.8 % (0-4); Lymphocytes # 0.7 K/mcL (0.6-4.6); Lymphocytes % 8.2 %; Mean Corpuscular HGB Conc 29.5 g/dL (31.6-35.5); Mean Corpuscular Hemoglobin 23.7 pg (28.0-33.3); Mean Corpuscular Volume 80.3 fL (83.0-100.0); Monocytes # 0.3 K/mcL (0.0-1.3); Monocytes % 3.8 %; Neutrophils # 7.8 K/mcL (1.6-8.9); Platelet Count 274 K/mcL (140-400); Red Blood Count 4.26 M/mcL (3.82-4.97); Red Cell Distribution Width 16.7 % (11.5-14.5); Segmented Neutrophils % 87.1 %
[2017-01-29 05:09] LABS: INR 1.2; Prothrombin Time 12.7 Seconds (9.4-12.1)
[2017-01-29 05:10] LABS: BUN/Creatinine Ratio 14 (6-26); Blood Urea Nitrogen 11 mg/dL (7-20); Calcium 8.1 mg/dL (8.6-10.8); Carbon Dioxide 30 mEq/L (19-29); Chloride 99 mEq/L (98-109); Cholesterol 112 mg/dL (< 200); Glucose 467 mg/dL (70-99); HDL Cholesterol 28 mg/dL (40-59); LDL Cholesterol,Calculated 42 mg/dL (0-99); Magnesium 1.2 mg/dL (1.6-2.6); Osmolality,Calculated 304 (280-300); Potassium 3.5 mEq/L (3.5-4.5); Sodium 137 mEq/L (136-145); Triglycerides 208 mg/dL (< 150); eGFR For African Americans > 60 (> 60); eGFR For Non-African Americans > 60 (> 60)
[2017-01-29 05:12] LABS: Activated Partial Thrombo Time 30.3 Seconds (26.0-36.0)
[2017-01-29 05:35] LABS: Anisocytosis 1+ (Not Present); Hypochromasia Present (Not Present); Platelet Estimate Normal (Normal); Poikilocytosis 1+ (Not Present); Polychromasia 1+ (Not Present)
[2017-01-29 05:47] LABS: Hemoglobin A1C 9.7 %
[2017-01-29] MEDS ORDERED: *HR* Heparin 5,000 UNIT/ML VIAL SQ SCH (06:00)
[2017-01-29] MEDS ORDERED: Insulin LISPRO 300 UNITS/3 ML VIAL SQ SCH (07:30)
[2017-01-29 08:09] LABS: Acinetobacter baumannii by PCR Not Detected (Not Detect); Candida albicans by PCR Not Detected (Not Detect); Candida glabrata by PCR Not Detected (Not Detect); Candida krusei by PCR Not Detected (Not Detect); Candida parapsilosis by PCR Not Detected (Not Detect); Candida tropicalis by PCR Not Detected (Not Detect); Enterococcus by PCR Not Detected (Not Detect); Escherichia coli by PCR Not Detected (Not Detect); Klebsiella oxytoca by PCR Not Detected (Not Detect); Klebsiella pneumoniae by PCR Not Detected (Not Detect); Pseudomonas aeruginosa by PCR Not Detected (Not Detect); Serratia marcescens by PCR Not Detected (Not Detect); Staphylococcus aureus by PCR ***DETECTED*** (Not Detect); Streptococcus agalactiae(B)PCR Not Detected (Not Detect); Streptococcus by PCR Not Detected (Not Detect); Streptococcus pneumoniae PCR Not Detected (Not Detect); Streptococcus pyogenes (A) PCR Not Detected (Not Detect); blaKPC Carbapenem-Resist Gene Not Detected (Not Detect); mecA Methicillin-Resist Gene ***DETECTED*** (Not Detect); vanA/B Vancomycin-Resist Genes Not Detected (Not Detect)
--- NOTE | 2017-01-29 09:41 | Internal Med Progress Note ---
<Donny Arechiga - Last Filed: 01/29/17 18:03> Date of Encounter: 01/29/17 - Constitutional Vitals: Temp Pulse Resp BP Pulse Ox 98 F 82 20 158/80 88 01/29/17 16:15 01/29/17 16:15 01/29/17 16:47 01/29/17 16:15 01/29/17 16:47 Internal Medicine: Result - Labs CBC & Chem 7: 01/29/17 04:40 01/29/17 04:40 Labs: Short CBC 01/29/17 Range/Units 04:40 WBC 9.0 (4.3-11.1) K/mcL Hgb 10.1 L (11.5-15.4) g/dL Hct 34.2 L (35.3-44.9) % Plt Count 274 (140-400) K/mcL Neutrophils # 7.8 (1.6-8.9) K/mcL BMP 01/29/17 04:40 Sodium 137 Potassium 3.5 Chloride 99 Carbon Dioxide 30 H BUN 11 Creatinine 0.81 Glucose 467 H Calcium 8.1 L Cardiac Enzymes 01/29/17 01/29/17 Range/Units 01:00 04:40 Troponin I 0.44 H* 0.46 H* (0-0.03) ng/mL - ABG Interpretation ABG results: PT/INR, D-dimer PT 12.7 Seconds (9.4-12.1) H 01/29/17 04:40 Consult Discharge Plan - Plan Referrals: Bony Kelly MD [Primary Care Provider] - - Attending Attestation I examined this patient and my medical decision-making was reviewed with the Resident Physician. I agree with the documented findings, disposition and treatment plan as described except to the extent set forth below. <Damien New - Last Filed: 01/29/17 18:42> Date of Encounter: 01/29/17 Time of Encounter: 09:41 - Assessment and plan (1) Septicemia Current Visit: Yes Status: Acute Assessment and plan: Preliminary blood culture results show gram-positive cocci (+MRSA on PCR), gram- positive rods, and urine culture shows gram-negative rods. Elevated ESR 87, CRP 46. Removed central venous catheter and consult ID. Consider transesophageal Echo to evaluate for endocarditis. Cardiology following If Echo is negative, consider right lower extremity osteomyelitis given cellulitis, history of venous ulcer, and inability to bear weight on extremity during transfers from bed to wheelchair Resume vancomycin ( day 1) Resume Zosyn (day 1) Discontinue Rocephin (day 2) (2) UTI (urinary tract infection) due to urinary indwelling Chandra catheter Current Visit: Yes Status: Acute Assessment and plan: Discontinue Rocephin (day 2). Antibiotics whiched vancomycin and Zosyn Urine culture shows gram-negative rods. New Chandra catheter in place. Patient has Chandra catheter due to bedbound status and immobility after CVA. Family at bedside reports home health agency instructed to change her Chandra catheter monthly Qualifiers: Indwelling urinary catheter type: indwelling urethral catheter Qualified Code(s): T83.511A - Infection and inflammatory reaction due to indwelling urethral catheter, initial encounter; N39.0 - Urinary tract infection, site not specified (3) Demand ischemia Current Visit: Yes Status: Acute Assessment and plan: Troponin 0.19, 0.44, 0.46 Suspect demand ischemia, in setting of UTI, septicemia. Cardiology following. Pt denies chest pain or worsening dyspnea. Hx of CABG x 5 in 2004. Echo 08/2014 EF preserved 65-70%. Repeat echo evealed EF 60 - 65%, atypical septal motion consistent with postoperative septum, and lack of TR jet, Consider Transesophageal Echo to evaluate for endocarditis. Appreciate cardiology recommendations (4) Cellulitis Current Visit: Yes Status: Acute Assessment and plan: Anterior right lower extremity warm to touch, erythematous, and swollen compared to left leg. Elevated ESR 87, CRP 46. Consider right lower extremity osteomyelitis given cellulitis, history of venous ulcer, and inability to bear weight on extremity during transfers from bed to wheelchair. MRI right lower extremities pending Qualifiers: Site of cellulitis: extremity Site of cellulitis of extremity: lower extremity Laterality: right Qualified Code(s): L03.115 - Cellulitis of right lower limb (5) Endocarditis Current Visit: Yes Status: Suspected Assessment and plan: Preliminary blood culture results show gram-positive cocci (+MRSA on PCR) and gram-negative rods, urine culture shows gram-positive rods and gram-negative rods. Elevated ESR 87, CRP 46. ID consulted Transthoracic echocardiogram revealed EF 60 - 65%, atypical septal motion consistent with postoperative septum, and lack of TR jet, Consider Transesophageal Echo to evaluate for endocarditis. Cardiology following Qualifiers: Endocarditis type: infective Infective endocarditis organism: bacterial Chronicity: acute Qualified Code(s): I33.0 - Acute and subacute infective endocarditis (6) Venous ulcer of right leg Current Visit: No Status: Resolved Assessment and plan: Elevated ESR 87, CRP 46. Consider right lower extremity osteomyelitis given cellulitis, history of venous ulcer, and inability to bear weight on extremity during transfers from bed to wheelchair. MRI pending (7) Diabetes mellitus type 2 in obese Current Visit: Yes Status: Acute Assessment and plan: Continue home insulin regimen with corrective high dose sliding scale insulin (8) CAD (coronary artery disease) Current Visit: Yes Status: Chronic Assessment and plan: History of CABG 5 in 2004. Continue aspirin. Hold Plavix. Cardiology following Qualifiers: Coronary Disease-Associated Artery/Lesion type: [place] artery [place] vs. transplanted heart: k[place] heart Associated angina: without angina Qualified Code(s): I25.10 - Atherosclerotic heart disease of [place] coronary artery without angina pectoris (9) HLD (hyperlipidemia) Current Visit: Yes Status: Chronic Assessment and plan: Continue statin. Qualifiers: Hyperlipidemia type: pure hypercholesterolemia Qualified Code(s): E78.00 - Pure hypercholesterolemia, unspecified; E78.0 - Pure hypercholesterolemia (10) Essential hypertension Current Visit: Yes Status: Chronic Assessment and plan: Continue to monitor. Cardiology following (11) Tobacco abuse Current Visit: Yes Status: Chronic Assessment and plan: Patient is not interested in tobacco cessation of this time (12) CVA (cerebral vascular accident) Current Visit: Yes Status: Chronic Assessment and plan: Remote CVA. Residual right sided hemiparesis with inability to bear weight on extremity during transfers from bed to wheelchair Qualifiers: Precerebral and cerebral artery: posterior cerebral artery Laterality of affected vessel: unspecified Qualified Code(s): I63.339 - Cerebral infarction due to thrombosis of unspecified posterior cerebral artery (13) Hypokalemia Current Visit: Yes Status: Resolved Assessment and plan: Resolved. (14) Hypomagnesemia Current Visit: Yes Status: Acute Assessment and plan: Supplemental magnesium. Continue to monitor. (15) Medical non-compliance Current Visit: Yes Status: Acute Assessment and plan: Patient continues to smoke and had supplemental oxygen tank at home. (16) DVT prophylaxis Current Visit: Yes Status: Acute Assessment and plan: Lovenox Patient seen and examined, plan discussed with and agreed upon with Dr. Arechiga - Subjective Interval history: Patient resting comfortably in bed. Patient reports a new redness and right anterior leg. for the past 3 days. She denies fevers or chills, chest pain, difficulty breathing, or worsening leg pain. Echocardiogram pending. She is currently on 6 L oxygen via nasal cannula, baseline is 3 L oxygen at home. Patient is not interested in tobacco cessation this time. - Constitutional Vitals: Temp Pulse Resp BP Pulse Ox 98.4 F 88 18 160/74 91 01/29/17 07:12 01/29/17 07:12 01/29/17 08:08 01/29/17 07:12 01/29/17 08:08 General appearance: Present: cooperative, A&O X 3, no acute distress, obese, answers questions appropriately - Head Head exam: Present: atraumatic, normocephalic - Eye Eye exam: Present: PERRL, conjuntiva pink, sclera anicteric Pupils: Present: PERRL - ENT ENT exam: Present: mucous membranes moist, normal oropharynx - Neck Neck exam general surgery: Present: supple, trachea midline. Absent: lymphadenopathy - Respiratory Respiratory exam: Present: rhonchi (Diffuse). Absent: accessory muscle use, rales, respiratory distress, wheezes Additional comments: Currently on 6 L oxygen via nasal cannula - Cardiovascular Cardiovascular exam: Present: RRR, +S1, +S2. Absent: diastolic murmur, gallop, rubs, systolic murmur - GI/Abdominal GI/Abdominal exam: Present: normal bowel sounds, soft, no peritoneal signs. Absent: distended, tenderness - Extremities Exam Extremities exam: Present: warm, radial pulses palpable and symetrical. Absent : calf tenderness, cyanotic, pedal edema Additional comments: Anterior right lower extremity warm to touch, erythematous, and swollen compared to left leg. No ulceration - Neurological Exam Neurological exam: Present: CN II-XII intact, motor sensory deficit, oriented X3. Absent: normal gait, pronater drift, facial droop, speech deficit Additional comments: Bedbound, right upper extremity paralysis - Skin Skin exam: Present: dry, erythema (Right anterior guerra), warm Additional comments: 5 x 5 cm patch with scaling skin on right frontal scalp, no bleeding, ulcerations, or dermatomal pattern Internal Medicine: Result - Labs CBC & Chem 7: 01/29/17 04:40 01/29/17 04:40 Labs: Short CBC 01/29/17 Range/Units 04:40 WBC 9.0 (4.3-11.1) K/mcL Hgb 10.1 L (11.5-15.4) g/dL Hct 34.2 L (35.3-44.9) % Plt Count 274 (140-400) K/mcL Neutrophils # 7.8 (1.6-8.9) K/mcL BMP 01/29/17 04:40 Sodium 137 Potassium 3.5 Chloride 99 Carbon Dioxide 30 H BUN 11 Creatinine 0.81 Glucose 467 H Calcium 8.1 L Cardiac Enzymes 01/29/17 01/29/17 Range/Units 01:00 04:40 Troponin I 0.44 H* 0.46 H* (0-0.03) ng/mL - ABG Interpretation ABG results: PT/INR, D-dimer PT 12.7 Seconds (9.4-12.1) H 01/29/17 04:40
[2017-01-29] MEDS: Pantoprazole 40 MG VIAL IVP SCH (10:15)
[2017-01-29] MEDS: Lisinopril 20 MG TABLET PO SCH (10:15)
[2017-01-29] MEDS: Cholecalciferol (D-3) 1,000 UNIT TABLET PO SCH (10:16)
[2017-01-29] MEDS: Metoprolol 100 MG TABLET PO SCH ×2 (10:16→22:23)
[2017-01-29] MEDS: Aspirin Enteric Coated 81 MG Tablet PO SCH (10:16)
[2017-01-29] MEDS: Magnesium Oxide 400 MG TABLET PO SCH (10:16)
[2017-01-29] MEDS: Gabapentin 100 MG CAPSULE PO SCH ×3 (10:16→22:23)
[2017-01-29] MEDS: Fenofibrate 54 MG TABLET PO SCH (10:16)
[2017-01-29] MEDS: amLODIPine 5 MG TABLET PO SCH (10:16)
[2017-01-29] MEDS: Furosemide 40 MG TABLET PO SCH (10:16)
[2017-01-29] MEDS: Insulin LISPRO 300 UNITS/3 ML VIAL SQ SCH ×4 (10:17→22:24)
--- NOTE | 2017-01-29 10:36 | Cardiology Consult Note ---
Date of Encounter: 01/29/17 Time of Encounter: 10:30 Assessment and Plan (1) Elevated troponin Current Visit: Yes Status: Acute Troponin 0.19, 0.44, 0.46 in setting of UTI, sepsis with positive blood cultures (gram positive cocci and rods, meCA, Staph). Suspect demand ischemia, nondiagnostic for ACS. Pt denies chest pain or worsening dyspnea. Hx of CABG x 5 in 2004. Echo 08/2014 EF preserved 65-70%. Recheck echo to evaluate EF. If no significant findings, cardiology will sign off. Will discuss with Dr. Ward. (2) CAD (coronary artery disease) Current Visit: Yes Status: Chronic Hx of reported CABG x 5 at [facility] in 2004. Pt denies chest pain or worsening dyspnea from baseline. Continue ASA, Plavix, Statin, BB. Qualifiers: Coronary Disease-Associated Artery/Lesion type: [place] artery [place] vs. transplanted heart: [place] heart Associated angina: without angina Qualified Code(s): I25.10 - Atherosclerotic heart disease of [place] coronary artery without angina pectoris (3) Sepsis Current Visit: Yes Status: Acute Management per primary team. Qualifiers: Sepsis type: sepsis due to unspecified organism Qualified Code(s): A41.9 - Sepsis, unspecified organism (4) Tobacco abuse Current Visit: Yes Status: Chronic 3PPD since age 17. Smoking cessation counseling given. (5) Essential hypertension Current Visit: Yes Status: Chronic 168/70 this AM--not at goal. Meds given after 10AM, no BP recheck since then. If BP remains elevated after medications, recommend adjusting antihypertensives. Discussion w patient/family: The assessment and plan as outlined above was discussed with the patient and/or family members who expressed understanding and agreement. All questions were answered. Thank you for involving us in the care of your patient. Please call with any questions. I will discuss all the above with Dr. Ward and make changes as necessary. History of Present Illness Consult date: 01/29/17 Requesting physician: Beverly Fraga Consult reason: elevated troponin Chief complaint: slurred speech now resolved History of present illness: Ms. Lauren is a 61 year old female with PMH of CVA, CAD s/p CABG x 5 in 2004, HTN, HLD, PVD, DVT, carotid stenosis s/p CEA, who presents from the ED with chief complaint of altered mental status, generalized weakness, and slurred speech. Patient had previous stroke which left right-sided paralysis. Patient's family stated that her speech is residual effect of previous stroke, but her behavior was not her normal behavior. Reports multiple UTIs throughout the previous year. She denies recent illness, fever, chills, chest pain, nausea, vomiting, diarrhea, abdominal pain, dizziness, or syncope. Pt has chronic dyspnea, she uses home O2 at 3L daily via nasal cannula. Troponin 0.19, 0.44, 0.46. She has been found to have a UTI and also positive blood cultures. Pt denies any chest pain. Reports she smokes 3PPD since age 17. Echo in 2015 showed preserved EF 65-70%, mild concentric LVH, mild DD, mild TR/WY. Past Med Surg Social Fam HX - Past Medical History Medical history: cancer, CHF, COPD, coronary artery disease, CVA, DVT, diabetes , hyperlipidemia, myocardial infarction Psychiatric history: depression - Past Surgical History Surgical History: cancer surgery, carotid endarterectomy, coronary bypass (CABG) , LE vascular intervention - Social History Smoking Status: Current every day smoker Packs per day: 3 PPD Smokeless Tobacco Status: No Alcohol use: none Drug use: none - Family History Mother Living Status: Hx Family Cancer: Yes (Renal) Hx Family Endocrine Disorder: Yes (DM) Medications and Allergies Aspirin [Lo-Dose Aspirin EC] 81 mg PO DAILY 01/28/17 [History] Beclomethasone Diprop 40mcg [Qvar 40 mcg] 1 puff IH BID 01/28/17 [History] Cholecalciferol (Vitamin D3) [Vitamin D] 1,000 unit PO DAILY 01/28/17 [History] Clopidogrel [Plavix] 75 mg PO DAILY 01/28/17 [History] Cyclobenzaprine [Flexeril] 10 mg PO TID PRN 01/28/17 [History] Fenofibrate Nanocrystallized [Triglide] 160 mg PO DAILY 01/28/17 [History] Furosemide [Lasix] 40 mg PO DAILY 01/28/17 [History] Gabapentin [Neurontin] 100 mg PO TID 01/28/17 [History] Guaifenesin [Mucinex] 600 mg PO BID PRN 01/28/17 [History] Insulin ASPART [Novolog Flexpen] 7 unit SQ TIDAC MDD plus sliding sale 01/28/17 [History] Insulin Glargine,Hum.rec.anlog [Lantus Solostar] 25 unit SQ HS 01/28/17 [History ] Ipratropium/Albuterol Neb [Duoneb] 3 ml IH Q6HR PRN 01/28/17 [History] Lansoprazole [Prevacid] 30 mg PO DAILY 01/28/17 [History] Lisinopril [Zestril] 20 mg PO DAILY 01/28/17 [History] Magnesium Oxide [Magnesium] 400 mg PO DAILY 01/28/17 [History] Metformin HCl [Glucophage] 1,000 mg PO BID 01/28/17 [History] Metoprolol [Lopressor] 100 mg PO BID 01/28/17 [History] Multivitamin [Multi-Day Vitamins] 1 tab PO DAILY 01/28/17 [History] Dana-3/Dha/Epa/Fish Oil [Fish Oil 1,000 mg Softgel] 2,000 mg PO BID 01/28/17 [ History] Oxycodone HCl/Acetaminophen [Percocet 7.5-325 mg Tablet] 1 tab PO Q6H PRN [History] Petrolatum,White [[place]] 1 appl TP TID 01/28/17 [History] Potassium Chloride [Klor-Con 10] 20 meq PO DAILY 01/28/17 [History] Ropinirole HCl [Requip] 0.25 mg PO HS 01/28/17 [History] Rosuvastatin [Crestor] 20 mg PO HS 01/28/17 [History] Sertraline [Zoloft] 50 mg PO DAILY 01/28/17 [History] Theophylline Anhydrous [Mateo-24] 200 mg PO DAILY 01/28/17 [History] Tiotropium [Spiriva] 1 cap IH DAILY 01/28/17 [History] amLODIPine [Norvasc] 5 mg PO DAILY 01/28/17 [History] traZODone [TraZODone] 25 - 50 mg PO HS 01/28/17 [History] Allergies Iodinated Contrast- Oral and IV Dye [Iodinated Contrast Media - Oral and] Allergy (Verified 11/28/16 17:51) Anaphylaxis All Systems Review: A 10-system review of systems was performed and is negative for pertinent findings except as documented above in the HPI. - Neurological Neurological: abnormal speech, memory loss Physical Examination Vital Signs, Last 4 Hours Temp Pulse Resp BP Pulse Ox 01/29/17 08:08 18 91 01/29/17 07:12 98.4 F 88 18 160/74 Vital Signs Temp Pulse Resp BP Pulse Ox 01/29/17 08:08 18 91 01/29/17 07:12 98.4 F 88 18 160/74 01/29/17 04:55 98.1 F 89 20 156/77 88 01/29/17 03:46 18 89 01/28/17 23:56 98.8 F 105 20 179/83 87 01/28/17 23:10 20 91 01/28/17 20:01 98.5 F 99 20 165/80 87 01/28/17 19:35 92 01/28/17 19:22 18 156/76 01/28/17 18:30 96 16 148/70 90 01/28/17 17:28 95 16 168/70 89 01/28/17 15:55 94 16 143/77 96 01/28/17 15:48 16 91 01/28/17 14:07 98.4 F 94 18 113/69 83 Intake and Output 01/28/17 01/29/17 01/29/17 23:59 07:59 15:59 Intake Total 1490 / 1490 240 / 240 Output Total 1225 / 1225 650 / 650 Balance 265 / 265 -410 / -410 Intake: IV Fluids 1250 / 1250 0.9 % Sodium Chloride 1, 1000 / 1000 000 ML @ 3750 mls/hr IVC .Q16M ONE Rx#:[id number] Vancocin 1,000 MG In 250 / 250 Dextrose 5% 250 ML @ 167 mls/hr IVPB ONCE ONE Rx#: [id number] Oral 240 / 240 240 / 240 Output: Catheter 1225 / 1225 650 / 650 Other: Weight 83.3 kg 82.01 kg Blood Glucose* 383 383 Patient Weight 01/29/17 23:59 Weight 82.01 kg General: Conversant, No Apparent Distress HEENT: Atraumatic, Normocephaly, Mucus Membranes Moist Neck: No JVD, Normal carotid pulses Cardiac: Reg Rate and Rhythm, Normal S1 and S2, No Murmur Lungs: Other (rhonchi throughout) Neuro: Alert and responsive Abdomen: Soft, Non-Tender Skin: No rashes noted on visualized skin Musculoskeletal: No Chest Wall Tenderness Extremities: No Clubbing, No Cyanosis, Normal Pulses, Other (RLE>LLE, chronic s/ p CVA) Results 01/29/17 04:40 01/29/17 04:40 Lab Results 01/29/17 01/29/17 01/29/17 01:00 04:40 04:40 WBC 9.0 Hgb 10.1 L Hct 34.2 L Plt Count 274 INR 1.2 APTT 30.3 Sodium Potassium Chloride Carbon Dioxide BUN Creatinine Glucose Calcium Magnesium Troponin I 0.44 H* 01/29/17 01/29/17 04:40 04:40 WBC Hgb Hct Plt Count INR APTT Sodium 137 Potassium 3.5 Chloride 99 Carbon Dioxide 30 H BUN 11 Creatinine 0.81 Glucose 467 H Calcium 8.1 L Magnesium 1.2 L Troponin I 0.46 H* Short CBC 01/29/17 01/28/17 Range/Units 04:40 15:23 WBC 9.0 10.0 (4.3-11.1) K/mcL Hgb 10.1 L 11.4 L (11.5-15.4) g/dL Hct 34.2 L 39.7 (35.3-44.9) % Plt Count 274 313 (140-400) K/mcL Neutrophils # 7.8 8.6 (1.6-8.9) K/mcL BMP 01/29/17 01/28/17 Range/Units 04:40 15:23 Sodium 137 136 (136-145) mEq/L Potassium 3.5 3.4 L (3.5-4.5) mEq/L Chloride 99 93 L (98-109) mEq/L Carbon Dioxide 30 H 34 H (19-29) mEq/L BUN 11 13 (7-20) mg/dL Creatinine 0.81 0.88 (0.57-1.11) mg/dL Glucose 467 H 375 H (70-99) mg/dL Calcium 8.1 L 9.0 (8.6-10.8) mg/dL Cardiac Enzymes 01/29/17 01/29/17 01/28/17 Range/Units 04:40 01:00 15:23 Troponin I 0.46 H* 0.44 H* 0.19 H* (0-0.03) ng/mL Liver Function 01/28/17 Range/Units 15:23 Total Bilirubin 0.3 (0.2-1.2) mg/dL Direct Bilirubin 0.1 (0.0-0.5) mg/dL AST 22 (5-34) Units/L ALT 14 (0-55) Units/L Alkaline Phosphatase 109 (38-126) Units/L Albumin 3.0 L (3.5-5.0) g/dL Urine 01/28/17 Range/Units 16:20 Urine Color Yellow (Yellow) Urine Clarity Turbid A (Clear) Urine pH 5.0 (5.0-8.0) pH Units Ur Specific [place] 1.024 (1.010-1.025) Urine Protein 100 H (Neg-Trace) mg/dL Urine Glucose (UA) >=1000 H (Normal) mg/dL Impressions Chest X-Ray 01/28/17 14:25 IMPRESSION: 1. No acute abnormality detected. D/ / Jatin Chavira MD / Jatin Chavira MD Interpreting Provider: Jatin Chavira MD Head CT 01/28/17 14:25 IMPRESSION: No evidence of intracranial hemorrhage or mass effect. Remote right parietal occipital infarct and left cerebellar infarcts are again seen as well as white matter changes consistent with chronic small vessel ischemic disease. No obvious acute infarct. D/ / Mirna Powers MD / Mirna Powers MD Interpreting Provider: Mirna Powers MD Chest X-Ray 01/28/17 17:06 IMPRESSION: Right internal jugular central venous catheter placement with tip projecting over the lower superior vena cava. No evidence of complication. D/ / Mirna Powers MD / Mirna Powers MD Interpreting Provider: Mirna Powers MD Active Medications Acetaminophen (Tylenol) 650 mg PO Q6HR PRN PRN Reason: Mild Pain (1-3) Stop: 07/30/17 21:21 Hydrocodone Bitart/Acetaminophen ([place] 5-325 Mg) 1 tab PO Q4HR PRN PRN Reason: Moderate Pain (4-6) Stop: 07/30/17 21:21 Albuterol/Ipratropium (Duoneb) 3 ml IH [id number] KARL PRN Reason: Protocol Stop: 07/31/17 00:01 Last Admin: 01/29/17 08:07 Dose: 3 ml Amlodipine Besylate (Norvasc) 5 mg PO DAILY KARL PRN Reason: Protocol Stop: 07/31/17 09:01 Last Admin: 01/29/17 10:16 Dose: 5 mg Aspirin (Aspirin Ec) 81 mg PO DAILY [facility] Stop: 07/31/17 09:01 Last Admin: 01/29/17 10:16 Dose: 81 mg Clopidogrel Bisulfate (Plavix) 75 mg PO DAILY [facility] Stop: 07/31/17 09:01 Cyclobenzaprine HCl (Flexeril) 10 mg PO TID PRN PRN Reason: Muscle Spasm Stop: 07/30/17 21:28 Dextrose/Water (Dextrose 50% (Syg)) 25 ml IVP AD PRN PRN Reason: Hypoglycemia Stop: 07/30/17 21:52 Enoxaparin Sodium (Lovenox) 80 mg 1 mg/kg (80 mg) SQ Q12HR KARL PRN Reason: Protocol Stop: 07/31/17 01:54 Last Admin: 01/29/17 04:51 Dose: Not Given Fenofibrate (Tricor) 162 mg PO DAILY [facility] Stop: 07/31/17 09:01 Last Admin: 01/29/17 10:16 Dose: 162 mg Furosemide (Lasix) 40 mg PO DAILY [facility] Stop: 07/31/17 09:01 Last Admin: 01/29/17 10:16 Dose: 40 mg Gabapentin (Neurontin) 100 mg PO TID [facility] Stop: 07/30/17 23:01 Last Admin: 01/29/17 10:16 Dose: 100 mg Glucagon (Glucagen) 1 mg IM ONCE PRN PRN Reason: Hypoglycemia Stop: 07/30/17 21:52 Glucose (Gluctose) 15 gm PO ONCE PRN PRN Reason: Hypoglycemia Stop: 07/30/17 21:52 Glucose (Gluctose) 30 gm PO ONCE PRN PRN Reason: Hypoglycemia Stop: 07/30/17 21:52 Guaifenesin (Mucinex) 600 mg PO BID PRN PRN Reason: Congestion Stop: 07/30/17 21:28 Hydralazine HCl (Hydralazine) 10 mg IVP Q6HR PRN PRN Reason: Hypertension Stop: 07/31/17 03:34 Potassium Chloride/Sodium Chloride (Kcl 20 Meq In 0.9% Sodium Chloride) 20 meq in 1,000 mls @ 75 mls/hr IVC .[id number] [facility] Stop: 07/30/17 21:46 Last Admin: 01/28/17 23:07 Dose: 75 mls/hr Ceftriaxone Sodium 1,000 mg/ (Dextrose) 100 mls @ 200 mls/hr IVPB Q24H [facility] Stop: 07/30/17 22:01 Last Admin: 01/28/17 23:07 Dose: 200 mls/hr Dextrose (Dextrose 5%) 1,000 mls @ 100 mls/hr IVC .Q10H PRN PRN Reason: HYPOGLYCEMIA Stop: 07/30/17 21:52 Vancomycin HCl 1,250 mg/ (Dextrose) 250 mls @ 167 mls/hr IVPB RPHPROT [facility] PRN Reason: Protocol Stop: 07/31/17 10:01 Insulin Detemir (Levemir) 15 unit SQ BID [facility] Stop: 07/31/17 01:01 Last Admin: 01/29/17 02:35 Dose: 15 unit Insulin Human Lispro (Humalog) 0 units SQ TIDAC [facility] PRN Reason: Protocol Stop: 07/31/17 07:31 Last Admin: 01/29/17 10:17 Dose: 16 units Insulin Human Lispro (Humalog) 0 units SQ HS [facility] PRN Reason: Protocol Stop: 07/30/17 23:01 Lisinopril (Zestril) 20 mg PO DAILY [facility] PRN Reason: Protocol Stop: 07/31/17 09:01 Last Admin: 01/29/17 10:15 Dose: 20 mg Magnesium Oxide (Mag-Ox) 400 mg PO DAILY [facility] PRN Reason: Protocol Stop: 07/30/17 21:31 Last Admin: 07/24/17 10:16 Dose: 400 mg Metoprolol Tartrate (Lopressor) 100 mg PO BID [facility] Stop: 07/30/17 23:01 Last Admin: 01/29/17 10:16 Dose: 100 mg Morphine Sulfate (Morphine Sulfate) 2 mg IVP Q4HR PRN PRN Reason: Severe Pain (7-10) Stop: 07/30/17 21:21 Naloxone HCl (Narcan) 0.4 mg IVP Q2MIN PRN PRN Reason: Opioid Reversal Stop: 07/30/17 21:21 Nicotine (Nicoderm) 21 mg TD DAILY KARL PRN Reason: Protocol Stop: 07/31/17 10:16 Ondansetron HCl (Zofran) 4 mg IVP Q8HR PRN PRN Reason: Nausea And Vomiting Stop: 07/30/17 21:21 Pantoprazole Sodium (Protonix) 40 mg IVP DAILY [facility] Stop: 07/31/17 09:01 Last Admin: 01/29/17 10:15 Dose: 40 mg Ropinirole HCl (Requip) 0.25 mg PO HS [facility] Stop: 07/30/17 23:01 Last Admin: 01/28/17 23:05 Dose: 0.25 mg Rosuvastatin Calcium (Crestor) 20 mg PO HS [facility] Stop: 07/30/17 23:01 Last Admin: 01/28/17 23:05 Dose: 20 mg Sertraline HCl (Zoloft) 50 mg PO DAILY [facility] Stop: 07/31/17 09:01 Theophylline (Mateo-24) 200 mg PO DAILY [facility] Stop: 07/31/17 09:01 Last Admin: 01/29/17 10:16 Dose: 200 mg Vitamin D (Vitamin D) 1,000 unit PO DAILY [facility] Stop: 07/31/17 09:01 Last Admin: 01/29/17 10:16 Dose: 1,000 unit - Imaging and Cardiology Echo: report reviewed - EKG Interpretation EKG results cardiology: personally reviewed (SR, old inferior OR), other (12 hr tele AVG HR 90, SR, no significant pauses or arrhythmias.) Consult Discharge Plan - Plan Referrals: Bony Kelly MD [Primary Care Provider] -
[2017-01-29] MEDS: Vancomycin 1,250 MG in D5% in Water 250 ML IVPB SCH ×2 (11:30→22:25)
[2017-01-29] MEDS: Nicotine 21 MG PATCH.TD24 TD SCH (11:30)
[2017-01-29] MEDS: *HR* HYDROcodone/Acet 5/325 mg TABLET PO PRN ×2 (11:47→17:14)
[2017-01-29 12:04] LABS: C-Reactive Protein 46 mg/L (Less than 5)
--- NOTE | 2017-01-29 15:56 | Electrocardiograph Report ---
[address] [place] [address] Test Date: 2017-01-28 Pat Name: Alma Lauren Department: 105 Room: [id number] Gender: F Press Breaker: : 1955 Requested By: Pacheco Crooks Order Number: [id number] Reading MD: Carlos Kim MD Measurements Intervals [place] Rate: 94 P: 49 TN: 156 QRS: 1 QRSD: 112 T: 80 QT: 405 QTc: 457 Interpretive Statements SINUS RHYTHM LEFT ATRIAL ENLARGEMENT INFERIOR MYOCARDIAL INFARCTION, PROBABLY OLD Electronically Signed On 01-29-2017 15:54:35 EDT by Carlos Kim MD
[2017-01-29] MEDS ORDERED: Magnesium Sulfate 2 GM in D5% in Water 100 ML IVPB ONE (16:06)
--- NOTE | 2017-01-29 16:29 | Electrocardiograph Report ---
[place] [address] Test Date: 2017-01-29 Pat Name: Alma Lauren Department: 111 Room: [facility] Gender: F Costume Director: [id number] : 1955 Requested By: Damien New Order Number: [id number] Reading MD: Carlos Kim MD Measurements Intervals [place] Rate: 95 P: 65 TN: 160 QRS: 16 QRSD: 105 T: 79 QT: 384 QTc: 436 Interpretive Statements SINUS RHYTHM BASELINE ARTIFACT Electronically Signed On 01-29-2017 16:27:43 EDT by Carlos Kim MD
[2017-01-29] MEDS: Piperacillin/Tazobactam 3.375 GM in D5% in Water (Mini-Bag+) 100 ML IVPB SCH (16:43)
[2017-01-29] MEDS: rOPINIRole 0.25 MG TABLET PO SCH (22:23)
[2017-01-30] MEDS: Ipratropium/Albuterol Neb 3 ML IH SCH ×6 (00:20→20:34)
[2017-01-30] MEDS: Piperacillin/Tazobactam 3.375 GM in D5% in Water (Mini-Bag+) 100 ML IVPB SCH ×3 (00:50→15:26)
[2017-01-30] MEDS ORDERED: Magnesium Sulfate 2 GM in D5% in Water 100 ML IVPB ONE (06:26)
--- NOTE | 2017-01-30 06:40 | Internal Med Progress Note ---
<Damien New - Last Filed: 01/30/17 16:47> Date of Encounter: 01/30/17 Time of Encounter: 06:37 - Assessment and plan (1) Bacteremia due to methicillin resistant Staphylococcus aureus Current Visit: Yes Status: Acute Assessment and plan: Likely secondary to MRSA bacteremia. Patient has cellulitis with MRSA and myositis which then went into the bloodstream. Preliminary blood culture results show gram-positive cocci (+MRSA on PCR), gram- positive rods (likely contaminant) in 1 out of 2 sets. Elevated ESR 87, CRP 46. Removed central venous catheter 01/29/17 and consulted ID. Right lower extremity MRI negative for osteomyelitis Continue Vancomycin ( day 2) with goal trough 15-20. Discontinue Zosyn (day 2) Patient will need a SAIDA prior to discharge to evaluate for endocarditis and duration of treatment depends on the clinical picture. (2) Cellulitis Current Visit: Yes Status: Acute Assessment and plan: Anterior right lower extremity warm to touch, erythematous, and swollen compared to left leg. Elevated ESR 87, CRP 46. Clinical picture is patient has cellulitis with MRSA and myositis which then went into the bloodstream. Right lower extremity MRI revealed cellulitis and myositis but negative for osteomyelitis. Continue antibiotics. ID following. Duration of treatment depends on the clinical picture Qualifiers: Site of cellulitis: extremity Site of cellulitis of extremity: lower extremity Laterality: right Qualified Code(s): L03.115 - Cellulitis of right lower limb (3) UTI (urinary tract infection) due to urinary indwelling Chandra catheter Current Visit: Yes Status: Acute Assessment and plan: Urine culture revealed Serratia Marcescens. (R: ceftriaxone, ceftazidime). ID recommends can switch to oral antibiotics including Levaquin. Duration of treatment 7 days. New Chandra catheter in place. Patient has Chandra catheter due to bedbound status and immobility after CVA. Family at bedside reports home health agency instructed to change her Chandra catheter monthly Qualifiers: Indwelling urinary catheter type: indwelling urethral catheter Qualified Code(s): T83.511A - Infection and inflammatory reaction due to indwelling urethral catheter, initial encounter; N39.0 - Urinary tract infection, site not specified (4) Demand ischemia Current Visit: Yes Status: Acute Assessment and plan: Troponin 0.19, 0.44, 0.46 Suspect demand ischemia, in setting of UTI, bacteremia. Cardiology following. Pt denies chest pain or worsening dyspnea. Hx of CABG x 5 in 2004. Echo 08/2014 EF preserved 65-70%. Repeat echo evealed EF 60 - 65%, atypical septal motion consistent with postoperative septum, and lack of TR jet, Consider Transesophageal Echo to evaluate for endocarditis. Appreciate cardiology recommendations (5) Endocarditis Current Visit: Yes Status: Suspected Assessment and plan: Suspected given MRSA bacteremia. Elevated ESR 87, CRP 46. ID following Transthoracic echocardiogram revealed EF 60 - 65%, atypical septal motion consistent with postoperative septum, and lack of TR jet. Patient will need a Transesophageal Echo prior to discharge to evaluate for endocarditis. Cardiology following Qualifiers: Endocarditis type: infective Infective endocarditis organism: bacterial Chronicity: acute Qualified Code(s): I33.0 - Acute and subacute infective endocarditis (6) Venous ulcer of right leg Current Visit: No Status: Resolved Assessment and plan: See above. Remote history of chronic right venous ulcer. Patient has cellulitis with MRSA and myositis which then went into the bloodstream (7) Diabetes mellitus type 2 in obese Current Visit: Yes Status: Acute Assessment and plan: Continue home insulin regimen with corrective high dose sliding scale insulin (8) CAD (coronary artery disease) Current Visit: Yes Status: Chronic Assessment and plan: History of CABG 5 in 2004. Continue aspirin, plavix. Cardiology following Qualifiers: Coronary Disease-Associated Artery/Lesion type: [place] artery [place] vs. transplanted heart: [place] heart Associated angina: without angina Qualified Code(s): I25.10 - Atherosclerotic heart disease of [place] coronary artery without angina pectoris (9) HLD (hyperlipidemia) Current Visit: Yes Status: Chronic Assessment and plan: Continue statin. Qualifiers: Hyperlipidemia type: pure hypercholesterolemia Qualified Code(s): E78.00 - Pure hypercholesterolemia, unspecified; E78.0 - Pure hypercholesterolemia (10) Essential hypertension Current Visit: Yes Status: Chronic Assessment and plan: Continue current therapy. Cardiology following (11) Tobacco abuse Current Visit: Yes Status: Chronic Assessment and plan: Patient is not interested in tobacco cessation of this time (12) CVA (cerebral vascular accident) Current Visit: Yes Status: Chronic Assessment and plan: Remote CVA. Residual right sided hemiparesis with inability to bear weight on extremity during transfers from bed to wheelchair Qualifiers: Precerebral and cerebral artery: posterior cerebral artery Laterality of affected vessel: unspecified Qualified Code(s): I63.339 - Cerebral infarction due to thrombosis of unspecified posterior cerebral artery (13) Hypokalemia Current Visit: Yes Status: Acute Assessment and plan: Supplement potassium. Continue to monitor (14) Hypomagnesemia Current Visit: Yes Status: Acute Assessment and plan: Supplemental magnesium. Continue to monitor. (15) Medical non-compliance Current Visit: Yes Status: Acute Assessment and plan: Patient continues to smoke and had supplemental oxygen tank at home. (16) DVT prophylaxis Current Visit: Yes Status: Acute Assessment and plan: Lovenox Patient seen and examined, plan discussed with and agreed upon with Dr. Arechiga - Subjective Interval history: Patient resting comfortably in bed. Patient reports decreased redness in right anterior leg. She denies fevers or chills, chest pain, difficulty breathing, or worsening leg pain. She is currently on 7 L oxygen via nasal cannula, baseline is 3 L oxygen at home. - Constitutional Vitals: Temp Pulse Resp BP Pulse Ox 98.3 F 82 18 192/84 87 01/30/17 05:24 01/30/17 05:24 01/30/17 05:24 01/30/17 05:24 01/30/17 05:24 General appearance: Present: cooperative, A&O X 3, no acute distress, obese, answers questions appropriately - Head Head exam: Present: atraumatic, normocephalic - Eye Eye exam: Present: PERRL, conjuntiva pink, sclera anicteric Pupils: Present: PERRL - ENT ENT exam: Present: mucous membranes moist, normal oropharynx - Neck Neck exam general surgery: Present: supple, trachea midline. Absent: lymphadenopathy - Respiratory Respiratory exam: Present: wheezes (diffuse). Absent: accessory muscle use, rales, rhonchi Additional comments: On 7 L of oxygen via nasal cannula - Cardiovascular Cardiovascular exam: Present: RRR, +S1, +S2. Absent: diastolic murmur, gallop, rubs, systolic murmur - GI/Abdominal GI/Abdominal exam: Present: normal bowel sounds, soft, no peritoneal signs. Absent: distended, tenderness - Additional comments: Indwelling Chandra catheter with yellow urine - Extremities Exam Extremities exam: Present: tenderness, warm, radial pulses palpable and symetrical. Absent: calf tenderness, cyanotic, pedal edema Additional comments: warm, erythematous, swollen 1+ edema right leg below the knee - Neurological Exam Neurological exam: Present: motor sensory deficit, oriented X3. Absent: pronater drift, facial droop, speech deficit Additional comments: Bedbound, right upper and lower extremity paralysis - Psychiatric Psychiatric exam: Present: normal affect, normal mood - Skin Skin exam: Present: dry, intact Additional comments: 5x3cm plaque right forehead with scaling skin, ulceration / induration warm, erythematous, swollen right leg below the knee Internal Medicine: Result - Labs CBC & Chem 7: 01/30/17 06:53 01/30/17 06:53 Labs: BMP 01/29/17 04:40 Sodium 137 Potassium 3.5 Chloride 99 Carbon Dioxide 30 H BUN 11 Creatinine 0.81 Glucose 467 H Calcium 8.1 L - ABG Interpretation ABG results: PT/INR, D-dimer PT 12.7 Seconds (9.4-12.1) H 01/29/17 04:40 - Impressions Impressions Lower Extremity MRI 01/29/17 17:28 IMPRESSION: 1. No evidence of osteomyelitis. 2. Evidence of cellulitis and myositis. 3. No focal fluid collections. D/ / Jatin Chavira MD / Jatin Chavira MD Interpreting Provider: Jatin Chavira MD Consult Discharge Plan - Plan Referrals: Bony Kelly MD [Primary Care Provider] - <Donny Arechiga P - Last Filed: 01/30/17 18:21> Date of Encounter: 01/30/17 - Constitutional Vitals: Temp Pulse Resp BP Pulse Ox 97.9 F 88 18 104/80 91 01/30/17 15:57 01/30/17 15:57 01/30/17 16:30 01/30/17 15:57 01/30/17 16:30 Internal Medicine: Result - Labs CBC & Chem 7: 01/30/17 06:53 01/30/17 06:53 Labs: Short CBC 01/30/17 Range/Units 06:53 WBC 11.8 H (4.3-11.1) K/mcL Hgb 10.9 L (11.5-15.4) g/dL Hct 36.4 (35.3-44.9) % Plt Count 259 (140-400) K/mcL Neutrophils # 9.5 H (1.6-8.9) K/mcL BMP 01/30/17 06:53 Sodium 141 Potassium 3.3 L Chloride 99 Carbon Dioxide 36 H BUN 7 Creatinine 0.58 Glucose 165 H Calcium 8.4 L Liver Function 01/30/17 Range/Units 06:53 Total Bilirubin < 0.3 (0.2-1.2) mg/dL AST 25 (5-34) Units/L ALT 15 (0-55) Units/L Alkaline Phosphatase 88 (38-126) Units/L Albumin 2.5 L (3.5-5.0) g/dL - ABG Interpretation ABG results: PT/INR, D-dimer PT 12.7 Seconds (9.4-12.1) H 01/29/17 04:40 - Impressions Impressions Lower Extremity MRI 01/29/17 17:28 IMPRESSION: 1. No evidence of osteomyelitis. 2. Evidence of cellulitis and myositis. 3. No focal fluid collections. D/ / Jatin hCavira MD / Jatin Chavira MD Interpreting Provider: Jatin Chavira MD - Attending Attestation I examined this patient and my medical decision-making was reviewed with the Resident Physician. I agree with the documented findings, disposition and treatment plan as described except to the extent set forth below. ID input appreciated.
[2017-01-30] MEDS: *HR* Enoxaparin 80 MG/0.8 ML SYRINGE SQ SCH ×2 (06:43→18:31)
[2017-01-30 07:36] LABS: Hemoglobin 10.9 g/dL (11.5-15.4); Segmented Neutrophils % 80.7 %
[2017-01-30 07:38] LABS: Basophils % 0.3 %; Eosinophils # 0.1 K/mcL (0.0-0.6); Eosinophils % 0.8 %; Hematocrit 36.4 % (35.3-44.9); Immature Granulocytes % 0.5 % (0-4); Lymphocytes # 1.6 K/mcL (0.6-4.6); Lymphocytes % 13.1 %; Mean Corpuscular HGB Conc 29.9 g/dL (31.6-35.5); Mean Corpuscular Hemoglobin 23.9 pg (28.0-33.3); Mean Corpuscular Volume 79.6 fL (83.0-100.0); Mean Platelet Volume 12.2 fL (9.4-12.4); Monocytes # 0.5 K/mcL (0.0-1.3); Monocytes % 4.6 %; Platelet Count 259 K/mcL (140-400); Red Blood Count 4.57 M/mcL (3.82-4.97); Red Cell Distribution Width 17.1 % (11.5-14.5)
[2017-01-30 07:42] LABS: Alanine Aminotransferase 15 Units/L (0-55); Albumin 2.5 g/dL (3.5-5.0); Albumin/Globulin Ratio 0.5 (1.1-2.2); Alkaline Phosphatase 88 Units/L (38-126); Aspartate Amino Transferase 25 Units/L (5-34); BUN/Creatinine Ratio 12 (6-26); Blood Urea Nitrogen 7 mg/dL (7-20); Calcium 8.4 mg/dL (8.6-10.8); Carbon Dioxide 36 mEq/L (19-29); Chloride 99 mEq/L (98-109); Globulin 4.8 g/dL (2.4-3.5); Glucose 165 mg/dL (70-99); Magnesium 1.2 mg/dL (1.6-2.6); Osmolality,Calculated 294 (280-300); Potassium 3.3 mEq/L (3.5-4.5); Sodium 141 mEq/L (136-145); Total Protein 7.3 g/dL (6.0-8.3); eGFR For African Americans > 60 (> 60); eGFR For Non-African Americans > 60 (> 60)
[2017-01-30 07:47] LABS: Neutrophils # 9.5 K/mcL (1.6-8.9)
[2017-01-30] MEDS: Insulin LISPRO 300 UNITS/3 ML VIAL SQ SCH ×4 (08:24→22:04)
[2017-01-30] MEDS: amLODIPine 5 MG TABLET PO SCH (08:25)
[2017-01-30] MEDS: Fenofibrate 54 MG TABLET PO SCH (08:25)
[2017-01-30] MEDS: Cholecalciferol (D-3) 1,000 UNIT TABLET PO SCH (08:25)
[2017-01-30] MEDS: Furosemide 40 MG TABLET PO SCH (08:25)
[2017-01-30] MEDS: Aspirin Enteric Coated 81 MG Tablet PO SCH (08:26)
[2017-01-30] MEDS: Magnesium Oxide 400 MG TABLET PO SCH (08:26)
[2017-01-30] MEDS: Gabapentin 100 MG CAPSULE PO SCH ×3 (08:26→22:02)
[2017-01-30] MEDS: Pantoprazole 40 MG VIAL IVP SCH (08:26)
[2017-01-30] MEDS: Nicotine 21 MG PATCH.TD24 TD SCH (08:26)
[2017-01-30] MEDS: Metoprolol 100 MG TABLET PO SCH ×2 (08:26→22:02)
[2017-01-30] MEDS: Lisinopril 20 MG TABLET PO SCH (08:26)
[2017-01-30 08:28] LABS: Hypochromasia Present (Not Present)
[2017-01-30 08:29] LABS: Platelet Estimate Normal (Normal)
--- NOTE | 2017-01-30 09:31 | Infectious Disease Consult ---
Date of Encounter: 01/30/17 Time of Encounter: 09:14 Assessment and Plan (1) Bacteremia Status: Acute Assessment and plan: Patient has not met SIRS criteria since admission. Additionally she did not meet criteria with the qSOFa screen ( 1 point for AMS) Today she meets only one criteria with mildly elevated WBC of 11.8 . Neutrophils of 9.5. She has been afebrile since admission. Peripheral Blood cultures from 01/28/17 have grown 1/2 positive for GPC and GPR. PCR would suggest GPC is MRSA. Right IJ CVC was removed on 01/29/17. TTE from 01/29/17 dose not reveal any valvular vegetation. At this time I highly suspect contamination. However given the pathogen will need to treat as a true bacteremia. She has cellulites and myositis of the Right lower extremity. This is likely the source. Urine cultures have grown Serratia Marcescens one of which is avalos sensitive and the other is resistant to ceftazidine and ceftriaxone. Recommendations: Repeat blood cultures. Discontinue Zosyn. continue vancomycin. goal trough of 15. Recommend SAIDA to rule out IE given her MRSA bacteremia. Recommend Levofloxacin 500mg IV daily for treatment of her UTI. Her CrCL is currently 90 and no dosage adjustment is necessary. We will follow up with culture results. Continue to monitor for drug toxicities. Continue to monitor renal function closely. Thank you for the consultation and the opportunity to participate in this patients care. (2) UTI (urinary tract infection) Status: Acute Assessment and plan: complicated given her chronic indwelling rubio catheter. Will need 10-14 days of treatment. Also would recommend exchanging rubio catheter for source control if not already exchanged this admission. Qualifiers: Urinary tract infection type: catheter-associated UTI Indwelling urinary catheter type: indwelling urethral catheter Encounter type: subsequent encounter Qualified Code(s): T83.511D - Infection and inflammatory reaction due to indwelling urethral catheter, subsequent encounter; N39.0 - Urinary tract infection, site not specified (3) Cellulitis Status: Acute Assessment and plan: right lower extremity. non suppurative. appears to be resolving. Treatment as stated above. Qualifiers: Site of cellulitis: extremity Site of cellulitis of extremity: upper extremity Laterality: right Qualified Code(s): L03.113 - Cellulitis of right upper limb (4) Bacterial myositis Status: Acute Assessment and plan: Myositis of the right lower extremity. This was seen on MRI. Continue vancomycin. (5) Rash Status: Acute Assessment and plan: left forehead at hairline. appears to possibly be sebborheic dermatitis. primary team following. (6) Leukocytosis Status: Acute Assessment and plan: mild. afebrile. possibly from CVC removal yesterday. continue to follow. Qualifiers: Leukocytosis type: unspecified Qualified Code(s): D72.829 - Elevated white blood cell count, unspecified (7) Chronic indwelling Rubio catheter Status: Acute (8) Elevated troponin Status: Acute Assessment and plan: unlikely related to an infectious process. patient with significant history of CAD. Cardiology following. (9) History of CVA (cerebrovascular accident) Status: Acute (10) History of coronary artery bypass graft Status: Acute Infectious Disease HPI - Data of Consult Patient: new to practice Consult date: 01/30/17 Requesting Physician: Geni Hines MD. Primary Care Provider: Bony Kelly MD - Consult Narrative Reason for consult: Bacteremia History of present illness: Ms. Lauren is a 61 year old female who was admitted to [facility] on 01/28/17 for Dyspnea, elevated troponins, and UTI. Infectious disease is consulted on 01/30/17 for bacteremia. Mrs. Lauren is a 61 y.o. female with pmh significant for IDDM, CAD s/p CABG, multiple CVAs with right sided hemiparesis. She is bed bound and has a chronic indwelling rubio catheter that was changed a week prior to admission. She also has a history of chronic lower extremity wounds and did follow with Dr. Perez at the wound clinic and was discharged on 12/22/16 because her wounds were closed. On admission the patient met 1 SIRS criteria of tachycardia and tachypnea. She had a normal WBC count on admission which tres to 11.8 on HD # 3. She would also have an initially elevated Lactic acid of 3.4. Work up thus far includes UA suggestive of UTI with urine culture that has grown 2 sets of Gram negative rods as of 01/28/17. Additionally she would have peripheral blood cultures from 01/28/17 that have grown GPC with PCR suggestive of MRSA and Gram positive Rods. She would have a CT of the abdomen and pelvis which would reveal a small fat containing umbilical and supraumbilical hernias without evidence of obstruction. Cholilithiasis would also be noted. No acute intracranial processes were identified on Ct of the head. No acute abnormalities were seen on CXR. There was concern for osteomyelitis of the right lower extremity as she had some cellulitis of the right lower extremity with elevated inflammatory markers. MRI revealed no evidence of osteomyelitis. There was however evidence of cellulitis and myositis with no focal fluid collections. She would have a Right IJ CVC placed on 01/28/17 in the ER which was removed on 01/29/17. Currently she is on Vancomycin 1250 mg Q12H and Zosyn 3.375 grams Q8H. Today Ms. Mann is somewhat of a poor historian ( she tells me she dose not have diabetes nor has she had a CVA) therefore the information for the medical history was supplemented by her son who is in the room. She was awake and alert for the entire interview and exam. she states that she came to the hospital because she was having difficulty breathing. she states that she was coughing clear sputum. She denies fever, chills, or malaise. Admits to foul smelling urine. She denies any rashes or diarrhea. She denies any new aches or pains. Per ER documentation patient was brought in by family because " she was nearly unresponsive and Blood glucose was 480". she has no further complaints or concerns at this time. CC: Agnes Stanley MD Past Med Surg Social Fam HX - Past Medical History Medical history: cancer, CHF, COPD, coronary artery disease, CVA, DVT, diabetes , hyperlipidemia, myocardial infarction Psychiatric history: depression - Past Surgical History Surgical History: cancer surgery, carotid endarterectomy, coronary bypass (CABG) , LE vascular intervention - Social History Smoking Status: Current every day smoker Packs per day: 3 PPD Smokeless Tobacco Status: No Alcohol use: none Drug use: none - Family History Mother Living Status: Hx Family Cancer: Yes (Renal) Hx Family Endocrine Disorder: Yes (DM) Infectious Disease-CN:Meds Aspirin [Lo-Dose Aspirin EC] 81 mg PO DAILY 01/28/17 [History] Beclomethasone Diprop 40mcg [Qvar 40 mcg] 1 puff IH BID 01/28/17 [History] Cholecalciferol (Vitamin D3) [Vitamin D] 1,000 unit PO DAILY 01/28/17 [History] Clopidogrel [Plavix] 75 mg PO DAILY 01/28/17 [History] Cyclobenzaprine [Flexeril] 10 mg PO TID PRN 01/28/17 [History] Fenofibrate Nanocrystallized [Triglide] 160 mg PO DAILY 01/28/17 [History] Furosemide [Lasix] 40 mg PO DAILY 01/28/17 [History] Gabapentin [Neurontin] 100 mg PO TID 01/28/17 [History] Guaifenesin [Mucinex] 600 mg PO BID PRN 01/28/17 [History] Insulin ASPART [Novolog Flexpen] 7 unit SQ TIDAC MDD plus sliding sale 01/28/17 [History] Insulin Glargine,Hum.rec.anlog [Lantus Solostar] 25 unit SQ HS 01/28/17 [History ] Ipratropium/Albuterol Neb [Duoneb] 3 ml IH Q6HR PRN 01/28/17 [History] Lansoprazole [Prevacid] 30 mg PO DAILY 01/28/17 [History] Lisinopril [Zestril] 20 mg PO DAILY 01/28/17 [History] Magnesium Oxide [Magnesium] 400 mg PO DAILY 01/28/17 [History] Metformin HCl [Glucophage] 1,000 mg PO BID 01/28/17 [History] Metoprolol [Lopressor] 100 mg PO BID 01/28/17 [History] Multivitamin [Multi-Day Vitamins] 1 tab PO DAILY 01/28/17 [History] [place]-3/Dha/Epa/Fish Oil [Fish Oil 1,000 mg Softgel] 2,000 mg PO BID 01/28/17 [ History] Oxycodone HCl/Acetaminophen [Percocet 7.5-325 mg Tablet] 1 tab PO Q6H PRN [History] Petrolatum,White [Aloe [place]] 1 appl TP TID 01/28/17 [History] Potassium Chloride [Klor-Con 10] 20 meq PO DAILY 01/28/17 [History] Ropinirole HCl [Requip] 0.25 mg PO HS 01/28/17 [History] Rosuvastatin [Crestor] 20 mg PO HS 01/28/17 [History] Sertraline [Zoloft] 50 mg PO DAILY 01/28/17 [History] Theophylline Anhydrous [Mateo-24] 200 mg PO DAILY 01/28/17 [History] Tiotropium [Spiriva] 1 cap IH DAILY 01/28/17 [History] amLODIPine [Norvasc] 5 mg PO DAILY 01/28/17 [History] traZODone [TraZODone] 25 - 50 mg PO HS 01/28/17 [History] Allergies Iodinated Contrast- Oral and IV Dye [Iodinated Contrast Media - Oral and] Allergy (Verified 11/28/16 17:51) Anaphylaxis Review of systems: of not patient is a poor historian about her medical history Constitutional: Denies fever, chills, rigors, night sweats, weight loss or weight gain. HEENT: Denies headache, denies sore throat, post nasal drip, nasal congestion, rhinnorhea, sinus pressure, hearing or vision changes, stiff neck Heart: Denies chest pain, palpitations, orthopnea Respiratory: admits to cough and dyspnea. Denies wheeze or color change in sputum. GI: Denies N/V/D/C dadmits to abdominal pain states it is chronic from her hernias and her gallstones. : denies dysuria, hematuria, change in frequency of urination. admits to chronic rubio and foul smelling urine. MSK: denies new aches or paines. Neuro: denies focal motor or sensory defecits. Denies recent seizure activity. ( has a history of right hemiparesis) Heme: denies easy bleeding or bruising. Lymph: denies swollen lymph noeds in the neck axilla or groin Travel: denies recent travel Animal exposure: has a dog that lives in the house but no recent scratches or bites. Sick contacts: Denies. Exam - Constitutional Vitals: Temp Pulse Resp BP Pulse Ox 98.4 F 83 18 179/88 93 01/30/17 07:46 01/30/17 07:46 01/30/17 07:58 01/30/17 07:46 01/30/17 08:21 Exam: Gen.: This is a well-developed well-nourished 61-year-old female who is alert and orientated to situation and person but not to time. Additionally she is confused about some of her past medical history. She is lying in bed appears to be comfortable no acute distress at this time. HEENT: The head is normocephalic and atraumatic. Anicteric sclera, pupils equally round reactive light and accommodation. Moist mucous membranes. The tongue does deviate to the left. Trachea midline. No cervical submandibular or supraclavicular lymphadenopathy noted. Heart: Regular rate and rhythm there is a 2/6 systolic ejection murmur heard best at the right upper sternal border. No JVD. Lungs: She has a normal effort of breathing. She does have some crackles at the bases of her lungs bilaterally. Abdomen: Multiple abdominal scars and very umbilical hernia is noted. Bowel sounds are positive. She is in some mild tenderness to palpation over her hernias but guarding. Also has some tenderness in the right upper quadrant. Musculoskeletal: Grossly normal for age no gross bony noted. Integument: She does have an area skin on the left forehead that is approximately 3 cm in diameter and projects up into the her midline. It is scaly with the areas of exfoliating skin. Additionally she has some mild erythema and warmth of the right lower extremity. Per family this is improved since admission. Extremities: There is no clubbing, cyanosis on exam. She does have mild pitting edema greater on the right and left lower extremity. Infectious Disease CN: Results - Labs CBC & Chem 7: 01/30/17 06:53 01/30/17 06:53 Consult Discharge Plan - Plan Referrals: Bony Kelly MD [Primary Care Provider] - - Attending Attestation I examined this patient and my medical decision-making was reviewed with the Resident Physician. I agree with the documented findings, disposition and treatment plan as described except to the extent set forth below. patient is a 61 year old female admitted on 01/28 for dyspnea and UTI with troponin leak, We are consulted today for bacteremia. Patient with past medical history mentioned below including 4 CVA and right hemiparesis and diastolic CHF and DM that is insulin dependent diabetes mellitus with baseline confusion. Most of the information was taken from medical record and family members. Patient apparently has been confused more than baseline for one day prior to admission and was brought in by the family. Since admission, patient was afebrile, tachycardic and normotensive. Her WBC was 10 with neutrophilic predominance. Normal BUN/Cr with elevated blood sugar and lactic acidosis (3.1). a U/A was obtained which revealed pyuria, leukocyte esterase and no ketones. Urine culture revealed Serratia Marcescens. (R: ceftriaxone, ceftazidime). Blood cultures were obtained and revealed MRSA 1 out of 2 sets and also GPR which is likely a contaminant. CXR was non revealing , MRI of the right lower ext obtained due to cellulitis and revealed cellulitis and myositis with no osteo or fluid collection. Patient was started on vancomycin and zosyn. We are asked to see patient and make further recommendations. At this point the likely clinical picture is patient has cellulitis with MRSA and myositis which then went into the bloodstream. So I think this is probably an uncomplicated MRSA bacteremia. I don't think patient had MRSA in the seated the muscle. Patient will need a SAIDA prior to discharge and duration of treatment depends on the clinical picture. Continue vancomycin with goal trough 15-20. As for the Serratia we can switch to oral antibiotic including Levaquin. Duration of treatment 7 days. Monitor labs and for drug toxicity.
[2017-01-30 09:32] LABS: Bilirubin,Total < 0.3 mg/dL (0.2-1.2)
[2017-01-30] MEDS: Insulin DETEMIR 100 UNIT/ML X5UNITS SQ SCH ×2 (13:16→22:03)
[2017-01-30] MEDS: Vancomycin 1,250 MG in D5% in Water 250 ML IVPB SCH ×2 (13:16→22:04)
[2017-01-30] MEDS ORDERED: Levofloxacin 500 MG/100 ML 500 MG/100 ML BAG IVPB SCH (18:00)
[2017-01-30] MEDS: *HR* HYDROcodone/Acet 5/325 mg TABLET PO PRN (18:32)
[2017-01-30] MEDS: rOPINIRole 0.25 MG TABLET PO SCH (22:01)
[2017-01-30] MEDS ORDERED: Furosemide 20 MG/2 ML VIAL IVP ONE (23:02)
[2017-01-31] MEDS: Ipratropium/Albuterol Neb 3 ML IH SCH ×6 (00:16→20:10)
[2017-01-31] MEDS ORDERED: Furosemide 20 MG/2 ML VIAL IVP ONE ×2 (01:00→12:51)
[2017-01-31] MEDS: *HR* Enoxaparin 80 MG/0.8 ML SYRINGE SQ SCH ×2 (06:43→17:15)
[2017-01-31 07:16] LABS: Basophils % 0.3 %; Eosinophils # 0.2 K/mcL (0.0-0.6); Eosinophils % 1.9 %; Hemoglobin 10.4 g/dL (11.5-15.4); Immature Granulocytes % 0.7 % (0-4); Immature Platelets 8.7 % (1.1-6.1); Lymphocytes # 1.5 K/mcL (0.6-4.6); Lymphocytes % 15.2 %; Mean Corpuscular HGB Conc 28.9 g/dL (31.6-35.5); Mean Corpuscular Volume 79.6 fL (83.0-100.0); Mean Platelet Volume 11.6 fL (9.4-12.4); Monocytes # 0.5 K/mcL (0.0-1.3); Monocytes % 4.5 %; Neutrophils # 7.7 K/mcL (1.6-8.9); Platelet Count 257 K/mcL (140-400); Red Blood Count 4.52 M/mcL (3.82-4.97); Red Cell Distribution Width 16.8 % (11.5-14.5); Segmented Neutrophils % 77.4 %
[2017-01-31 07:28] LABS: Alanine Aminotransferase 12 Units/L (0-55); Albumin 2.4 g/dL (3.5-5.0); Albumin/Globulin Ratio 0.5 (1.1-2.2); Alkaline Phosphatase 99 Units/L (38-126); Aspartate Amino Transferase 20 Units/L (5-34); BUN/Creatinine Ratio 18 (6-26); Bilirubin,Total 0.3 mg/dL (0.2-1.2); Blood Urea Nitrogen 11 mg/dL (7-20); Calcium 8.8 mg/dL (8.6-10.8); Chloride 98 mEq/L (98-109); Glucose 146 mg/dL (70-99); Osmolality,Calculated 300 (280-300); Potassium 2.8 mEq/L (3.5-4.5); Sodium 144 mEq/L (136-145); Total Protein 7.4 g/dL (6.0-8.3); eGFR For African Americans > 60 (> 60); eGFR For Non-African Americans > 60 (> 60)
[2017-01-31 07:42] LABS: Anisocytosis 1+ (Not Present); Hypochromasia Present (Not Present); Microcytosis Present (Not Present)
[2017-01-31 07:43] LABS: Platelet Estimate Normal (Normal)
[2017-01-31 07:45] LABS: Carbon Dioxide 40 mEq/L (19-29)
[2017-01-31 08:34] LABS: Magnesium 1.2 mg/dL (1.6-2.6)
[2017-01-31 08:40] LABS: ABG Base Excess 16.9 mEq/L (-2.0 to 3.0); ABG HCO3 42.7 mEQ/L (21-27); ABG Oxygen Saturation 92 % (95-98); ABG PCO2 56 mmHg (35-45); ABG PH 7.49 pH Units (7.32-7.45); ABG PO2 58 mmHg (85-104); ABG TCO2 44.4 mEq/L (20-26)
[2017-01-31 08:41] LABS: Blood Gas Liter Flow 7 L/MIN
[2017-01-31] MEDS: Insulin LISPRO 300 UNITS/3 ML VIAL SQ SCH ×4 (09:15→21:29)
[2017-01-31] MEDS: Fenofibrate 54 MG TABLET PO SCH (09:18)
[2017-01-31] MEDS: Lisinopril 20 MG TABLET PO SCH (09:18)
[2017-01-31] MEDS: Cholecalciferol (D-3) 1,000 UNIT TABLET PO SCH (09:19)
[2017-01-31] MEDS: Gabapentin 100 MG CAPSULE PO SCH ×3 (09:19→21:25)
[2017-01-31] MEDS: Furosemide 40 MG TABLET PO SCH (09:19)
[2017-01-31] MEDS: Pantoprazole 40 MG VIAL IVP SCH (09:19)
[2017-01-31] MEDS: Magnesium Oxide 400 MG TABLET PO SCH (09:19)
[2017-01-31] MEDS: Metoprolol 100 MG TABLET PO SCH ×2 (09:19→21:24)
[2017-01-31] MEDS ORDERED: Magnesium Sulfate 2 GM in D5% in Water 100 ML IVPB ONE (09:19)
[2017-01-31] MEDS: amLODIPine 5 MG TABLET PO SCH (09:19)
[2017-01-31] MEDS: Aspirin Enteric Coated 81 MG Tablet PO SCH (09:19)
[2017-01-31] MEDS: Nicotine 21 MG PATCH.TD24 TD SCH (09:21)
--- NOTE | 2017-01-31 09:21 | Internal Med Progress Note ---
<Damien New - Last Filed: 01/31/17 09:17> Date of Encounter: 01/31/17 Time of Encounter: 09:17 - Assessment and plan (1) Bacteremia due to methicillin resistant Staphylococcus aureus Current Visit: Yes Status: Acute Assessment and plan: Likely secondary to MRSA bacteremia. Patient has cellulitis with MRSA and myositis which then went into the bloodstream. Preliminary blood culture results show gram-positive cocci (+MRSA on PCR), gram- positive rods (likely contaminant) in 1 out of 2 sets. Elevated ESR 87, CRP 46. Removed central venous catheter 01/29/17 Right lower extremity MRI negative for osteomyelitis Continue Vancomycin ( day 3) with goal trough 15-20. Duration of treatment depends on the clinical picture. ID following Patient will need a SAIDA prior to discharge to evaluate for endocarditis (2) Cellulitis Current Visit: Yes Status: Acute Assessment and plan: Decrease right lower extremity erythema and swelling Elevated ESR 87, CRP 46. Clinical picture is patient has cellulitis with MRSA and myositis which then went into the bloodstream. Right lower extremity MRI revealed cellulitis and myositis but negative for osteomyelitis. Continue antibiotics. ID following. Duration of treatment depends on the clinical picture Qualifiers: Site of cellulitis: extremity Site of cellulitis of extremity: lower extremity Laterality: right Qualified Code(s): L03.115 - Cellulitis of right lower limb (3) UTI (urinary tract infection) due to urinary indwelling Chandra catheter Current Visit: Yes Status: Acute Assessment and plan: Urine culture revealed Serratia Marcescens. (R: ceftriaxone, ceftazidime). Levaquin (day 2 of 7). ID following New Chandra catheter in place. Patient has Chandra catheter due to bedbound status and immobility after CVA. Family at bedside reports home health agency instructed to change her Chandra catheter monthly Qualifiers: Indwelling urinary catheter type: indwelling urethral catheter Qualified Code(s): T83.511A - Infection and inflammatory reaction due to indwelling urethral catheter, initial encounter; N39.0 - Urinary tract infection, site not specified (4) COPD (chronic obstructive pulmonary disease) Current Visit: Yes Status: Acute Assessment and plan: Acute exacerbation of COPD. She is currently on 6 L oxygen via nasal cannula, baseline is 3 L oxygen at home. CXR shows Interval improvement in perihilar vascular congestion. Suggestion of small bilateral effusions ABG shows a metabolic alkalosis with superimposed respiratory acidosis Continue DuoNebs scheduled every 4 hours. Continue Levaquin (day 2 of 7) Solu-Medrol IV Qualifiers: COPD type: COPD with acute exacerbation Qualified Code(s): J44.1 - Chronic obstructive pulmonary disease with (acute) exacerbation (5) Demand ischemia Current Visit: Yes Status: Acute Assessment and plan: Troponin 0.19, 0.44, 0.46 Suspect demand ischemia, in setting of UTI, bacteremia. Hx of CABG x 5 in 2004. Appreciate cardiology recommendations Repeat echo evealed EF 60 - 65%, atypical septal motion consistent with postoperative septum, and lack of TR jet Anticipate Transesophageal Echo to evaluate for endocarditis prior to discharge (6) Endocarditis Current Visit: Yes Status: Suspected Assessment and plan: Suspected given MRSA bacteremia. Elevated ESR 87, CRP 46. ID following Transthoracic echocardiogram revealed EF 60 - 65%, atypical septal motion consistent with postoperative septum, and lack of TR jet. Patient will need a Transesophageal Echo prior to discharge to evaluate for endocarditis. Cardiology following Qualifiers: Endocarditis type: infective Infective endocarditis organism: bacterial Chronicity: acute Qualified Code(s): I33.0 - Acute and subacute infective endocarditis (7) Venous ulcer of right leg Current Visit: No Status: Resolved Assessment and plan: See above. Remote history of chronic right venous ulcer. Patient has cellulitis with MRSA and myositis which then went into the bloodstream (8) Diabetes mellitus type 2 in obese Current Visit: Yes Status: Acute Assessment and plan: Continue home insulin regimen with corrective high dose sliding scale insulin (9) CAD (coronary artery disease) Current Visit: Yes Status: Chronic Assessment and plan: History of CABG 5 in 2004. Continue aspirin, plavix. Cardiology following Qualifiers: Coronary Disease-Associated Artery/Lesion type: [place] artery [place] vs. transplanted heart: [place] heart Associated angina: without angina Qualified Code(s): I25.10 - Atherosclerotic heart disease of [place] coronary artery without angina pectoris (10) HLD (hyperlipidemia) Current Visit: Yes Status: Chronic Assessment and plan: Continue statin. Qualifiers: Hyperlipidemia type: pure hypercholesterolemia Qualified Code(s): E78.00 - Pure hypercholesterolemia, unspecified; E78.0 - Pure hypercholesterolemia (11) Essential hypertension Current Visit: Yes Status: Chronic Assessment and plan: Continue current therapy. Cardiology following (12) Tobacco abuse Current Visit: Yes Status: Chronic Assessment and plan: Patient is not interested in tobacco cessation of this time. Nicotine patch (13) CVA (cerebral vascular accident) Current Visit: Yes Status: Chronic Assessment and plan: Remote CVA. Residual right sided hemiparesis with inability to bear weight on extremity during transfers from bed to wheelchair Qualifiers: Precerebral and cerebral artery: posterior cerebral artery Laterality of affected vessel: unspecified Qualified Code(s): I63.339 - Cerebral infarction due to thrombosis of unspecified posterior cerebral artery (14) Hypokalemia Current Visit: Yes Status: Acute Assessment and plan: Supplement potassium. Continue to monitor (15) Hypomagnesemia Current Visit: Yes Status: Acute Assessment and plan: Supplemental magnesium. Continue to monitor. (16) Medical non-compliance Current Visit: Yes Status: Acute Assessment and plan: Patient continues to smoke and had supplemental oxygen tank at home. (17) DVT prophylaxis Current Visit: Yes Status: Acute Assessment and plan: Lovenox Patient seen and examined, plan discussed with and agreed upon with Dr. Arechiga - Subjective Interval history: Patient resting comfortably in bed. Patient reports decreased redness in right anterior leg. She denies fevers or chills, chest pain, difficulty breathing, or worsening leg pain. She is currently on 6 L oxygen via nasal cannula, baseline is 3 L oxygen at home. - Constitutional Vitals: Temp Pulse Resp BP Pulse Ox 98.5 F 86 18 176/70 93 01/31/17 07:48 01/31/17 07:48 01/31/17 07:55 01/31/17 07:48 01/31/17 07:55 General appearance: Present: cooperative, A&O X 3, pleasant, no acute distress, obese, answers questions appropriately - Head Head exam: Present: atraumatic, normocephalic - Eye Eye exam: Present: PERRL, conjuntiva pink, sclera anicteric Pupils: Present: PERRL - ENT ENT exam: Present: mucous membranes moist, normal oropharynx Additional comments: Currently on 6 L of oxygen via nasal cannula - Neck Neck exam general surgery: Present: supple, trachea midline. Absent: lymphadenopathy - Respiratory Respiratory exam: Present: prolonged expiratory phase, wheezes (Bilateral bases) . Absent: accessory muscle use, decreased breath sounds, rales, respiratory distress, rhonchi - Cardiovascular Cardiovascular exam: Present: RRR, +S1, +S2. Absent: diastolic murmur, gallop, rubs, systolic murmur - GI/Abdominal GI/Abdominal exam: Present: normal bowel sounds, soft, no peritoneal signs. Absent: distended, tenderness - Extremities Exam Extremities exam: Present: pedal edema, warm, radial pulses palpable and symetrical. Absent: calf tenderness, cyanotic Additional comments: Decreased erythema right anterior guerra, 1+ edema right lower extremity - Neurological Exam Neurological exam: Present: CN II-XII intact, oriented X3. Absent: facial droop , speech deficit Additional comments: Bedbound, right upper and lower extremity paralysis - Psychiatric Psychiatric exam: Present: normal affect, normal mood - Skin Skin exam: Present: dry, erythema, intact, warm. Absent: pallor, rash Additional comments: 5x3cm plaque right forehead with scaling skin, ulceration / induration warm, decreased erythema right leg below the knee Internal Medicine: Result - Labs CBC & Chem 7: 01/31/17 06:45 01/31/17 06:45 Labs: Short CBC 01/31/17 Range/Units 06:45 WBC 10.0 (4.3-11.1) K/mcL Hgb 10.4 L (11.5-15.4) g/dL Hct 36.0 (35.3-44.9) % Plt Count 257 (140-400) K/mcL Neutrophils # 7.7 (1.6-8.9) K/mcL BMP 01/31/17 06:45 Sodium 144 Potassium 2.8 L Chloride 98 Carbon Dioxide 40 H* BUN 11 Creatinine 0.62 Glucose 146 H Calcium 8.8 Liver Function 01/30/17 01/31/17 Range/Units 06:53 06:45 Total Bilirubin < 0.3 0.3 (0.2-1.2) mg/dL AST 20 (5-34) Units/L ALT 12 (0-55) Units/L Alkaline Phosphatase 99 (38-126) Units/L Albumin 2.4 L (3.5-5.0) g/dL - ABG Interpretation Interpretation: ABG interpreted by me ABG results: ABG ABG pH 7.49 pH Units (7.32-7.45) H 01/31/17 08:35 ABG pCO2 56 mmHg (35-45) H 01/31/17 08:35 ABG pO2 58 mmHg (85-104) L 01/31/17 08:35 ABG O2 Saturation 92 % (95-98) L 01/31/17 08:35 PT/INR, D-dimer PT 12.7 Seconds (9.4-12.1) H 01/29/17 04:40 Interpretation: respiratory acidosis, metabolic alkalosis Additional comments: Primary metabolic alkalosis, with superimposed respiratory acidosis - Impressions Impressions Chest X-Ray 01/30/17 21:45 IMPRESSION: When compared the previous exam, there is increased interstitial opacity with increased pulmonary vascular congestion, suggesting possible early edema. D/ / Jatin Chavira MD / Jatin Chavira MD Interpreting Provider: Jatin Chavira MD Chest X-Ray 01/31/17 08:16 IMPRESSION: Interval improvement in perihilar vascular congestion. Suggestion of small bilateral effusions. Otherwise stable chest. D/ / Damien Gurrola MD / Damien Gurrola MD Interpreting Provider: Damien Gurrola MD Consult Discharge Plan - Plan Referrals: Jr Ruiz MD [Partnered Physician] - 03/06/17 1:00 pm Bony Kelly MD [Primary Care Provider] - 02/09/17 9:45 am Ellis Ruiz DO [Resident] - 02/01/17 2:00 pm [facility] <Donny Arechiga P - Last Filed: 01/31/17 18:45> Date of Encounter: 01/31/17 - Constitutional Vitals: Temp Pulse Resp BP Pulse Ox 98.6 F 90 16 159/74 93 01/31/17 16:36 01/31/17 16:36 01/31/17 16:36 01/31/17 16:36 01/31/17 16:36 Internal Medicine: Result - Labs CBC & Chem 7: 01/31/17 06:45 01/31/17 06:45 Labs: Short CBC 01/31/17 Range/Units 06:45 WBC 10.0 (4.3-11.1) K/mcL Hgb 10.4 L (11.5-15.4) g/dL Hct 36.0 (35.3-44.9) % Plt Count 257 (140-400) K/mcL Neutrophils # 7.7 (1.6-8.9) K/mcL BMP 01/31/17 06:45 Sodium 144 Potassium 2.8 L Chloride 98 Carbon Dioxide 40 H* BUN 11 Creatinine 0.62 Glucose 146 H Calcium 8.8 Liver Function 01/31/17 Range/Units 06:45 Total Bilirubin 0.3 (0.2-1.2) mg/dL AST 20 (5-34) Units/L ALT 12 (0-55) Units/L Alkaline Phosphatase 99 (38-126) Units/L Albumin 2.4 L (3.5-5.0) g/dL - ABG Interpretation ABG results: ABG ABG pH 7.49 pH Units (7.32-7.45) H 01/31/17 08:35 ABG pCO2 56 mmHg (35-45) H 01/31/17 08:35 ABG pO2 58 mmHg (85-104) L 01/31/17 08:35 ABG O2 Saturation 92 % (95-98) L 01/31/17 08:35 PT/INR, D-dimer PT 12.7 Seconds (9.4-12.1) H 01/29/17 04:40 - Impressions Impressions Chest X-Ray 01/30/17 21:45 IMPRESSION: When compared the previous exam, there is increased interstitial opacity with increased pulmonary vascular congestion, suggesting possible early edema. D/ / Jatin Chavira MD / Jatin Chavira MD Interpreting Provider: Jatin Chavira MD Chest X-Ray 01/31/17 08:16 IMPRESSION: Interval improvement in perihilar vascular congestion. Suggestion of small bilateral effusions. Otherwise stable chest. D/ / Damien Gurrola MD / Damien Gurrola MD Interpreting Provider: Damien Gurrola MD - Attending Attestation I examined this patient and my medical decision-making was reviewed with the Resident Physician. I agree with the documented findings, disposition and treatment plan as described except to the extent set forth below.
[2017-01-31] MEDS ORDERED: methylPREDNISolone 125 MG/2 ML VIAL IVP ONE (10:00)
[2017-01-31] MEDS: Vancomycin 1,250 MG in D5% in Water 250 ML IVPB SCH ×2 (12:32→23:35)
[2017-01-31] MEDS: Insulin DETEMIR 100 UNIT/ML X5UNITS SQ SCH ×2 (12:32→21:34)
[2017-01-31] MEDS: MethylPREDNISolone 40 MG/ML VIAL IVP SCH ×2 (15:03→23:36)
[2017-01-31] MEDS: levoFLOXacin 500 MG TABLET PO SCH (17:15)
[2017-01-31] MEDS: rOPINIRole 0.25 MG TABLET PO SCH (21:24)
[2017-01-31] MEDS: FISH OIL PO SCH (21:26)
[2017-02-01] MEDS: Ipratropium/Albuterol Neb 3 ML IH SCH ×7 (05:18→23:29)
[2017-02-01] MEDS: *HR* Enoxaparin 80 MG/0.8 ML SYRINGE SQ SCH (05:27)
[2017-02-01 06:30] LABS: Basophils % 0.1 %; Hematocrit 35.8 % (35.3-44.9); Hemoglobin 10.5 g/dL (11.5-15.4); Immature Granulocytes % 0.8 % (0-4); Lymphocytes # 0.6 K/mcL (0.6-4.6); Lymphocytes % 7.1 %; Mean Corpuscular HGB Conc 29.3 g/dL (31.6-35.5); Mean Corpuscular Hemoglobin 23.1 pg (28.0-33.3); Mean Corpuscular Volume 78.9 fL (83.0-100.0); Mean Platelet Volume 12.4 fL (9.4-12.4); Monocytes # 0.1 K/mcL (0.0-1.3); Monocytes % 1.8 %; Platelet Count 306 K/mcL (140-400); Red Blood Count 4.54 M/mcL (3.82-4.97); Red Cell Distribution Width 16.4 % (11.5-14.5); Segmented Neutrophils % 90.2 %
[2017-02-01 06:48] LABS: Alanine Aminotransferase 13 Units/L (0-55); Albumin 2.4 g/dL (3.5-5.0); Albumin/Globulin Ratio 0.5 (1.1-2.2); Alkaline Phosphatase 110 Units/L (38-126); Aspartate Amino Transferase 15 Units/L (5-34); BUN/Creatinine Ratio 28 (6-26); Calcium 9.4 mg/dL (8.6-10.8); Carbon Dioxide 38 mEq/L (19-29); Chloride 97 mEq/L (98-109); Globulin 5.3 g/dL (2.4-3.5); Glucose 295 mg/dL (70-99); Magnesium 1.5 mg/dL (1.6-2.6); Osmolality,Calculated 304 (280-300); Potassium 3.6 mEq/L (3.5-4.5); Sodium 140 mEq/L (136-145); Total Protein 7.7 g/dL (6.0-8.3); eGFR For African Americans > 60 (> 60); eGFR For Non-African Americans > 60 (> 60)
[2017-02-01 06:51] LABS: Bilirubin,Total < 0.3 mg/dL (0.2-1.2); Blood Urea Nitrogen 22 mg/dL (7-20)
[2017-02-01] MEDS ORDERED: Magnesium Sulfate 2 GM in D5% in Water 100 ML IVPB ONE (07:04)
--- NOTE | 2017-02-01 08:24 | Internal Med Progress Note ---
<Damien New - Last Filed: 02/01/17 10:20> Date of Encounter: 02/01/17 Time of Encounter: 08:24 - Assessment and plan (1) Bacteremia due to methicillin resistant Staphylococcus aureus Current Visit: Yes Status: Acute Assessment and plan: Patient has cellulitis with MRSA and myositis which then went into the bloodstream. Blood culture +MRSA, gram-positive rods (likely contaminant) in 1 out of 2 sets. Elevated ESR 87, CRP 46. Removed central venous catheter 01/29/17 Right lower extremity MRI negative for osteomyelitis Continue Vancomycin ( day 4) with goal trough 15-20. Duration of treatment depends on the clinical picture. ID following Patient will need a SAIDA prior to discharge to evaluate for endocarditis (2) Cellulitis Current Visit: Yes Status: Acute Assessment and plan: Decrease right lower extremity erythema and swelling Elevated ESR 87, CRP 46. Clinical picture is patient has cellulitis with MRSA and myositis which then went into the bloodstream. Right lower extremity MRI revealed cellulitis and myositis but negative for osteomyelitis. Continue antibiotics. ID following. Duration of treatment depends on the clinical picture Qualifiers: Site of cellulitis: extremity Site of cellulitis of extremity: lower extremity Laterality: right Qualified Code(s): L03.115 - Cellulitis of right lower limb (3) UTI (urinary tract infection) due to urinary indwelling Chandra catheter Current Visit: Yes Status: Acute Assessment and plan: Urine culture revealed Serratia Marcescens. (R: ceftriaxone, ceftazidime). Levaquin (day 3 of 7). ID following New Chandra catheter in place. Patient has Chandra catheter due to bedbound status and immobility after CVA. Family at bedside reports home health agency instructed to change her Chandra catheter monthly Qualifiers: Indwelling urinary catheter type: indwelling urethral catheter Qualified Code(s): T83.511A - Infection and inflammatory reaction due to indwelling urethral catheter, initial encounter; N39.0 - Urinary tract infection, site not specified (4) COPD (chronic obstructive pulmonary disease) Current Visit: Yes Status: Acute Assessment and plan: Acute exacerbation of COPD. She is currently on 5 L oxygen via nasal cannula, baseline is 3 L oxygen at home. CXR shows Interval improvement in perihilar vascular congestion. Suggestion of small bilateral effusions ABG shows a metabolic alkalosis with superimposed respiratory acidosis secondary to contraction alkalosis Continue DuoNebs scheduled every 4 hours. Continue Levaquin (day 3 of 7) Solu-Medrol IV Qualifiers: COPD type: COPD with acute exacerbation Qualified Code(s): J44.1 - Chronic obstructive pulmonary disease with (acute) exacerbation (5) Demand ischemia Current Visit: Yes Status: Acute Assessment and plan: Troponin 0.19, 0.44, 0.46 Suspect demand ischemia, in setting of UTI, bacteremia. Hx of CABG x 5 in 2004. Appreciate cardiology recommendations Repeat echo evealed EF 60 - 65%, atypical septal motion consistent with postoperative septum, and lack of TR jet Anticipate Transesophageal Echo to evaluate for endocarditis prior to discharge (6) Endocarditis Current Visit: Yes Status: Suspected Assessment and plan: Suspected given MRSA bacteremia. Elevated ESR 87, CRP 46. ID following Transthoracic echocardiogram revealed EF 60 - 65%, atypical septal motion consistent with postoperative septum, and lack of TR jet. The patient has one minor Modified [place] Criteria. Index of suspicion for IE low, but will need to get SAIDA to completely rule out. Patient will need a Transesophageal Echo prior to discharge to evaluate for endocarditis. Cardiology following Qualifiers: Endocarditis type: infective Infective endocarditis organism: bacterial Chronicity: acute Qualified Code(s): I33.0 - Acute and subacute infective endocarditis (7) Diabetes mellitus type 2 in obese Current Visit: Yes Status: Acute Assessment and plan: Continue home insulin regimen with corrective high dose sliding scale insulin (8) CAD (coronary artery disease) Current Visit: Yes Status: Chronic Assessment and plan: History of CABG 5 in 2004. Continue aspirin, plavix. Cardiology following Qualifiers: Coronary Disease-Associated Artery/Lesion type: [place] artery [place] vs. transplanted heart: [place] heart Associated angina: without angina Qualified Code(s): I25.10 - Atherosclerotic heart disease of [place] coronary artery without angina pectoris (9) HLD (hyperlipidemia) Current Visit: Yes Status: Chronic Assessment and plan: Continue statin. Qualifiers: Hyperlipidemia type: pure hypercholesterolemia Qualified Code(s): E78.00 - Pure hypercholesterolemia, unspecified; E78.0 - Pure hypercholesterolemia (10) Essential hypertension Current Visit: Yes Status: Chronic Assessment and plan: Continue current therapy. Cardiology following (11) Tobacco abuse Current Visit: Yes Status: Chronic Assessment and plan: Patient is not interested in tobacco cessation of this time. Nicotine patch (12) CVA (cerebral vascular accident) Current Visit: Yes Status: Chronic Assessment and plan: Remote CVA. Residual right sided hemiparesis with inability to bear weight on extremity during transfers from bed to wheelchair Qualifiers: Precerebral and cerebral artery: posterior cerebral artery Laterality of affected vessel: unspecified Qualified Code(s): I63.339 - Cerebral infarction due to thrombosis of unspecified posterior cerebral artery (13) Hypokalemia Current Visit: Yes Status: Acute Assessment and plan: Resolved. Continue to monitor (14) Hypomagnesemia Current Visit: Yes Status: Acute Assessment and plan: Supplement magnesium. Continue to monitor. (15) Medical non-compliance Current Visit: Yes Status: Acute Assessment and plan: Patient continues to smoke and had supplemental oxygen tank at home. (16) DVT prophylaxis Current Visit: Yes Status: Acute Assessment and plan: Lovenox Patient seen and examined, plan discussed with and agreed upon with Dr. Arechiga - Subjective Interval history: Patient resting comfortably in bed. She denies fevers or chills, chest pain, difficulty breathing, or worsening right leg pain/ redness. She is currently on 5 L oxygen via nasal cannula, baseline is 3 L oxygen at home. - Constitutional Vitals: Temp Pulse Resp BP Pulse Ox 98.4 F 90 15 177/79 87 02/01/17 04:53 02/01/17 07:00 02/01/17 07:00 02/01/17 07:00 02/01/17 07:00 General appearance: Present: cooperative, A&O X 3, pleasant, no acute distress, obese, answers questions appropriately - Head Head exam: Present: atraumatic, normocephalic - Eye Eye exam: Present: PERRL, conjuntiva pink, sclera anicteric Pupils: Present: PERRL - ENT ENT exam: Present: mucous membranes moist, normal oropharynx - Neck Neck exam general surgery: Present: supple, trachea midline. Absent: lymphadenopathy - Respiratory Respiratory exam: Present: wheezes (Mild diffuse). Absent: accessory muscle use , decreased breath sounds, prolonged expiratory phase, rales, rhonchi - Cardiovascular Cardiovascular exam: Present: RRR, +S1, +S2. Absent: diastolic murmur, gallop, rubs, systolic murmur - GI/Abdominal GI/Abdominal exam: Present: normal bowel sounds, soft, no peritoneal signs. Absent: distended, tenderness - Extremities Exam Extremities exam: Present: warm, radial pulses palpable and symetrical. Absent : calf tenderness, cyanotic, pedal edema Additional comments: Decreased erythema right anterior guerra, no edema right lower extremity - Neurological Exam Neurological exam: Present: CN II-XII intact, oriented X3. Absent: facial droop , speech deficit Additional comments: Bedbound, right upper and lower extremity paralysis - Skin Skin exam: Present: dry, intact Additional comments: 5x3cm plaque right forehead with scaling skin, ulceration / induration warm, decreased erythema right leg below the knee Internal Medicine: Result - Labs CBC & Chem 7: 02/01/17 05:40 02/01/17 05:40 Labs: Short CBC 02/01/17 Range/Units 05:40 WBC 7.7 (4.3-11.1) K/mcL Hgb 10.5 L (11.5-15.4) g/dL Hct 35.8 (35.3-44.9) % Plt Count 306 (140-400) K/mcL Neutrophils # 7.0 (1.6-8.9) K/mcL BMP 02/01/17 05:40 Sodium 140 Potassium 3.6 Chloride 97 L Carbon Dioxide 38 H BUN 22 H D Creatinine 0.78 Glucose 295 H Calcium 9.4 Liver Function 02/01/17 Range/Units 05:40 Total Bilirubin < 0.3 (0.2-1.2) mg/dL AST 15 (5-34) Units/L ALT 13 (0-55) Units/L Alkaline Phosphatase 110 (38-126) Units/L Albumin 2.4 L (3.5-5.0) g/dL - ABG Interpretation ABG results: ABG ABG pH 7.49 pH Units (7.32-7.45) H 01/31/17 08:35 ABG pCO2 56 mmHg (35-45) H 01/31/17 08:35 ABG pO2 58 mmHg (85-104) L 01/31/17 08:35 ABG O2 Saturation 92 % (95-98) L 01/31/17 08:35 PT/INR, D-dimer PT 12.7 Seconds (9.4-12.1) H 01/29/17 04:40 - Impressions Impressions Chest X-Ray 01/31/17 08:16 IMPRESSION: Interval improvement in perihilar vascular congestion. Suggestion of small bilateral effusions. Otherwise stable chest. D/ / Damien Gurrola MD / Damien Gurrola MD Interpreting Provider: Damien Gurrola MD Consult Discharge Plan - Plan Referrals: Jr Ruiz MD [Partnered Physician] - 03/06/17 1:00 pm Bony Kelly MD [Primary Care Provider] - 02/09/17 9:45 am Ellis Ruiz DO [Resident] - 02/01/17 2:00 pm ([facility]) <Donny Arechiga P - Last Filed: 02/01/17 18:34> Date of Encounter: 02/01/17 - Constitutional Vitals: Temp Pulse Resp BP Pulse Ox 98.4 F 93 18 150/46 91 02/01/17 04:53 02/01/17 16:00 02/01/17 16:19 02/01/17 16:00 02/01/17 16:19 Internal Medicine: Result - Labs CBC & Chem 7: 02/01/17 05:40 02/01/17 05:40 Labs: Short CBC 02/01/17 Range/Units 05:40 WBC 7.7 (4.3-11.1) K/mcL Hgb 10.5 L (11.5-15.4) g/dL Hct 35.8 (35.3-44.9) % Plt Count 306 (140-400) K/mcL Neutrophils # 7.0 (1.6-8.9) K/mcL BMP 02/01/17 05:40 Sodium 140 Potassium 3.6 Chloride 97 L Carbon Dioxide 38 H BUN 22 H D Creatinine 0.78 Glucose 295 H Calcium 9.4 Liver Function 02/01/17 Range/Units 05:40 Total Bilirubin < 0.3 (0.2-1.2) mg/dL AST 15 (5-34) Units/L ALT 13 (0-55) Units/L Alkaline Phosphatase 110 (38-126) Units/L Albumin 2.4 L (3.5-5.0) g/dL - ABG Interpretation ABG results: ABG ABG pH 7.49 pH Units (7.32-7.45) H 01/31/17 08:35 ABG pCO2 56 mmHg (35-45) H 01/31/17 08:35 ABG pO2 58 mmHg (85-104) L 01/31/17 08:35 ABG O2 Saturation 92 % (95-98) L 01/31/17 08:35 PT/INR, D-dimer PT 12.7 Seconds (9.4-12.1) H 01/29/17 04:40 - Attending Attestation I examined this patient and my medical decision-making was reviewed with the Resident Physician. I agree with the documented findings, disposition and treatment plan as described except to the extent set forth below. ID input appreciated.
--- NOTE | 2017-02-01 09:57 | Infectious Disease Progress No ---
Date of Encounter: 01/31/17 Time of Encounter: 15:00 - Assessment and Plan (1) Leukocytosis Current Visit: Yes Status: Resolved The patient had an isolated event of very mild leukocytosis. Resolved. Qualifiers: Leukocytosis type: unspecified Qualified Code(s): D72.829 - Elevated white blood cell count, unspecified (2) Bacteremia Current Visit: Yes Status: Acute Causative organism: MRSA. Source likely RLE cellulitis/myositis. Peripheral blood cultures drawn 01/28/17 are positive 1/2 sets for MRSA. Repeat peripheral blood cultures drawn 01/30/17 are NGTD. Not sure that this is a true infection given the clinical picture, but given that the CO is MRSA, will need to treat as such. TTE 01/29/17 negative for valvular vegetations. The patient has one minor Modified Alamo's Criteria. Index of suspicion for IE low, but will need to get SAIDA to completely rule out. Continue Vancomycin IV. Pharmacy to dose. Goal trough ~15. Duration of treatment depends on the clinical picture. Monitor renal function and for drug toxicity and dose-adjust antibiotics. (3) UTI (urinary tract infection) Current Visit: Yes Status: Acute Causative organism S. marcescens. Likely secondary to chronic indwelling rubio catheter. Recommend switching out rubio catheter if not already done during this hospitalization. Continue Levaquin 500mg IV daily. Duration of treatment depends on the clinical picture. Monitor renal function and dose-adjust antibiotics. Qualifiers: Urinary tract infection type: catheter-associated UTI Indwelling urinary catheter type: indwelling urethral catheter Encounter type: initial encounter Qualified Code(s): T83.511A - Infection and inflammatory reaction due to indwelling urethral catheter, initial encounter; N39.0 - Urinary tract infection , site not specified (4) Cellulitis Current Visit: Yes Status: Acute Location: RLE. Causative organism likely MRSA. Improved. Lower extremity MRI does not show osteomyelitis or abscess. Continue antibiotics as above. Qualifiers: Site of cellulitis: extremity Site of cellulitis of extremity: lower extremity Laterality: right Qualified Code(s): L03.115 - Cellulitis of right lower limb (5) Bacterial myositis Current Visit: Yes Status: Acute Location: RLE. Noted on MRI. Antibiotics as above. (6) Elevated troponin Current Visit: Yes Status: Acute Cardiology consulted and following. (7) Rash Current Visit: Yes Status: Acute Location: Left upper forehead. Patient states it started as a pimple and she has continued to pick at it. Consider topical antibiotic ointment and encourage patient to avoid picking. (8) History of coronary artery bypass graft Current Visit: Yes Status: Acute (9) Chronic indwelling Rubio catheter Current Visit: Yes Status: Acute (10) History of CVA (cerebrovascular accident) Current Visit: Yes Status: Acute - Subjective Interval history: Patient seen and examined. No acute events noted overnight. Patient resting in bed with family at bedside. Denies acute complaints. Denies fevers, chills, or rigors. Denies chest pain, shortness of breath, or cough. Denies nausea, vomiting, or diarrhea. Denies abdominal pain and states her appetite is okay. Denies oral thrush or skin lesions. Has a chronic indwelling rubio catheter that is patent. Infect Dis PN-Objective Data - Labs CBC & Chem 7: 02/01/17 05:40 02/01/17 05:40 Labs: Laboratory Results - last 24 hr 01/31/17 01/31/17 01/31/17 11:57 16:38 20:40 WBC RBC Hgb Hct MCV MCH MCHC RDW Plt Count MPV Immature Gran % Seg Neutrophils % Lymphocytes % Monocytes % Eosinophils % Basophils % Neutrophils # Lymphocytes # Monocytes # Eosinophils # Basophils # Sodium Potassium Chloride Carbon Dioxide BUN Creatinine Est GFR ( Amer) Est GFR (Non-Af Amer) BUN/Creatinine Ratio Glucose POC Glucose 210 H 309 H 424 H* Calculated Osmolality Calcium Magnesium Total Bilirubin AST ALT Alkaline Phosphatase Serum Total Protein Albumin Globulin Albumin/Globulin Ratio 01/31/17 01/31/17 02/01/17 20:42 23:52 05:40 WBC 7.7 RBC 4.54 Hgb 10.5 L Hct 35.8 MCV 78.9 L MCH 23.1 L MCHC 29.3 L RDW 16.4 H Plt Count 306 MPV 12.4 Immature Gran % 0.8 Seg Neutrophils % 90.2 Lymphocytes % 7.1 Monocytes % 1.8 Eosinophils % 0.0 Basophils % 0.1 Neutrophils # 7.0 Lymphocytes # 0.6 Monocytes # 0.1 Eosinophils # 0.0 Basophils # 0.0 Sodium Potassium Chloride Carbon Dioxide BUN Creatinine Est GFR ( Amer) Est GFR (Non-Af Amer) BUN/Creatinine Ratio Glucose POC Glucose 417 H* 345 H Calculated Osmolality Calcium Magnesium Total Bilirubin AST ALT Alkaline Phosphatase Serum Total Protein Albumin Globulin Albumin/Globulin Ratio 02/01/17 05:40 WBC RBC Hgb Hct MCV MCH MCHC RDW Plt Count MPV Immature Gran % Seg Neutrophils % Lymphocytes % Monocytes % Eosinophils % Basophils % Neutrophils # Lymphocytes # Monocytes # Eosinophils # Basophils # Sodium 140 Potassium 3.6 Chloride 97 L Carbon Dioxide 38 H BUN 22 H D Creatinine 0.78 Est GFR ( Amer) > 60 Est GFR (Non-Af Amer) > 60 BUN/Creatinine Ratio 28 H Glucose 295 H POC Glucose Calculated Osmolality 304 H Calcium 9.4 Magnesium 1.5 L Total Bilirubin < 0.3 AST 15 ALT 13 Alkaline Phosphatase 110 Serum Total Protein 7.7 Albumin 2.4 L Globulin 5.3 H Albumin/Globulin Ratio 0.5 L Cultures: Cultures 01/30/17 11:31 Blood Culture - Preliminary Peripheral Venipuncture No growth. 01/30/17 11:31 Blood Culture - Preliminary Peripheral Venipuncture No growth. Exam - Constitutional Vitals: Temp Pulse Resp BP Pulse Ox 98.4 F 90 15 177/79 87 02/01/17 04:53 02/01/17 07:00 02/01/17 07:00 02/01/17 07:00 02/01/17 07:00 General appearance: average body habitus, cooperative, no acute distress - Head Head exam: Present: atraumatic, normal inspection, normocephalic - Eye Eye exam: Present: EOMI, normal appearance, PERRL Pupils: Present: normal accommodation Additional comments: No subconjunctival hemorrhage noted. - ENT ENT exam: Present: mucous membranes moist - Neck Neck exam: Present: normal inspection - Respiratory Respiratory exam: Present: CTAB. Absent: rales, respiratory distress, rhonchi, wheezes - Cardiovascular Cardiovascular exam: Present: RRR, +S1, +S2 - GI/Abdominal GI/Abdominal exam: Present: normal bowel sounds, soft. Absent: distended, tenderness Additional comments: Rubio catheter noted to be draining clear yellow urine. - Extremities Exam Extremities exam: Present: pedal edema (1+ RLE). Absent: joint swelling, tenderness Additional comments: RLE mild erythema to the lower portion. No open wounds or drainage noted. - Neurological Exam Neurological exam: Present: alert, oriented X3. Absent: no focal deficits ( Paralysis noted to the RUE and RLE.) - Psychiatric Psychiatric exam: Present: normal affect, normal mood - Skin Skin exam: Present: dry, intact, normal color, warm Additional comments: No endocarditis stigmata noted. Consult Discharge Plan - Plan Referrals: Jr Ruiz MD [Partnered Physician] - 03/06/17 1:00 pm Bony Kelly MD [Primary Care Provider] - 02/09/17 9:45 am Ellis Ruiz DO [Resident] - 02/01/17 2:00 pm ([facility])
[2017-02-01] MEDS: Gabapentin 100 MG CAPSULE PO SCH ×3 (10:16→23:04)
[2017-02-01] MEDS: Furosemide 40 MG TABLET PO SCH (10:16)
[2017-02-01] MEDS: Metoprolol 100 MG TABLET PO SCH ×2 (10:16→23:04)
[2017-02-01] MEDS: amLODIPine 5 MG TABLET PO SCH (10:16)
[2017-02-01] MEDS: Magnesium Oxide 400 MG TABLET PO SCH (10:16)
[2017-02-01] MEDS: Aspirin Enteric Coated 81 MG Tablet PO SCH (10:18)
[2017-02-01] MEDS: Fenofibrate 54 MG TABLET PO SCH (10:18)
[2017-02-01] MEDS: Cholecalciferol (D-3) 1,000 UNIT TABLET PO SCH (10:18)
[2017-02-01] MEDS: Lisinopril 20 MG TABLET PO SCH (10:18)
[2017-02-01] MEDS: Nicotine 21 MG PATCH.TD24 TD SCH (10:18)
[2017-02-01] MEDS: MethylPREDNISolone 40 MG/ML VIAL IVP SCH ×2 (10:19→15:05)
[2017-02-01] MEDS: Pantoprazole 40 MG VIAL IVP SCH (10:19)
[2017-02-01] MEDS: Vancomycin 1,250 MG in D5% in Water 250 ML IVPB SCH ×2 (10:30→23:09)
[2017-02-01] MEDS: Insulin DETEMIR 100 UNIT/ML X5UNITS SQ SCH ×2 (10:30→23:08)
[2017-02-01] MEDS: Insulin LISPRO 300 UNITS/3 ML VIAL SQ SCH ×4 (10:33→23:08)
[2017-02-01] MEDS: FISH OIL PO SCH ×2 (10:34→23:03)
--- NOTE | 2017-02-01 14:58 | Infectious Disease Progress No ---
Date of Encounter: 02/01/17 Time of Encounter: 10:15 - Assessment and Plan (1) Bacteremia Current Visit: Yes Status: Acute Causative organism: MRSA. Source likely RLE cellulitis/myositis. Peripheral blood cultures drawn 01/28/17 are positive 1/2 sets for MRSA. With GPR as well. Repeat peripheral blood cultures drawn 01/30/17 are NGTD. Not sure that this is a true infection given the clinical picture, but given that the cultured organism is MRSA, will need to treat as such. TTE 01/29/17 negative for valvular vegetations. The patient has one minor Modified [place]amo's Criteria. Index of suspicion for IE low. Given her chronic medical conditions and comorbidities would be high risk for SAIDA and is reasonable to forege SAIDA at this time. Continue Vancomycin IV. Pharmacy to dose. Goal trough ~15. Duration of treatment will be 2 weeks from first negative blood culture. Monitor renal function and for drug toxicity and dose-adjust antibiotics. (2) UTI (urinary tract infection) Current Visit: Yes Status: Acute Comlpicated by chronic indwelling rubio catheter. Serratia Marcescens is the causative organism. Recommend completing a total of 10 days of antibiotics. Currently on Levofloxacin. Qualifiers: Urinary tract infection type: catheter-associated UTI Indwelling urinary catheter type: indwelling urethral catheter Encounter type: subsequent encounter Qualified Code(s): T83.511D - Infection and inflammatory reaction due to indwelling urethral catheter, subsequent encounter; N39.0 - Urinary tract infection, site not specified (3) Cellulitis Current Visit: Yes Status: Acute MRI shows cellulitis/ Myositis. improving clinically. Continue vancomycin. Qualifiers: Site of cellulitis: extremity Site of cellulitis of extremity: upper extremity Laterality: right Qualified Code(s): L03.113 - Cellulitis of right upper limb (4) Bacterial myositis Current Visit: Yes Status: Acute Location: RLE. Noted on MRI. Antibiotics as above. (5) Rash Current Visit: Yes Status: Acute Location: Left upper forehead. possibly sebborheic dermatitis. Consider topical antibiotic ointment and encourage patient to avoid picking. (6) Leukocytosis Current Visit: Yes Status: Resolved The patient had an isolated event of very mild leukocytosis. Resolved. Qualifiers: Leukocytosis type: unspecified Qualified Code(s): D72.829 - Elevated white blood cell count, unspecified (7) Chronic indwelling Rubio catheter Current Visit: Yes Status: Acute (8) Diabetes Current Visit: Yes Status: Acute recommend tight glycemic control to prevent recurrent infections. Qualifiers: Diabetes mellitus type: type 2 Diabetes mellitus complication status: without complication Diabetes mellitus ferry terminal agent insulin use: without ferry terminal agent use Qualified Code(s): E11.9 - Type 2 diabetes mellitus without complications (9) Elevated troponin Current Visit: Yes Status: Acute trending down. cardiology following. (10) History of CVA (cerebrovascular accident) Current Visit: Yes Status: Acute (11) History of coronary artery bypass graft Current Visit: Yes Status: Acute - Subjective Interval history: No major events overnight. PAtient states that she is feeling much better. she is breathing much easier. She denies cough, wheeze, increased dyspnea, diarrhea. she has no new complaints this AM. Infect Dis PN-Objective Data - Labs CBC & Chem 7: 02/02/17 06:00 02/02/17 06:00 Labs: Laboratory Results - last 24 hr 01/31/17 01/31/17 01/31/17 11:57 16:38 20:40 WBC RBC Hgb Hct MCV MCH MCHC RDW Plt Count MPV Immature Gran % Seg Neutrophils % Lymphocytes % Monocytes % Eosinophils % Basophils % Neutrophils # Lymphocytes # Monocytes # Eosinophils # Basophils # Sodium Potassium Chloride Carbon Dioxide BUN Creatinine Est GFR ( Amer) Est GFR (Non-Af Amer) BUN/Creatinine Ratio Glucose POC Glucose 210 H 309 H 424 H* Calculated Osmolality Calcium Magnesium Total Bilirubin AST ALT Alkaline Phosphatase Serum Total Protein Albumin Globulin Albumin/Globulin Ratio 01/31/17 01/31/17 02/01/17 20:42 23:52 05:40 WBC 7.7 RBC 4.54 Hgb 10.5 L Hct 35.8 MCV 78.9 L MCH 23.1 L MCHC 29.3 L RDW 16.4 H Plt Count 306 MPV 12.4 Immature Gran % 0.8 Seg Neutrophils % 90.2 Lymphocytes % 7.1 Monocytes % 1.8 Eosinophils % 0.0 Basophils % 0.1 Neutrophils # 7.0 Lymphocytes # 0.6 Monocytes # 0.1 Eosinophils # 0.0 Basophils # 0.0 Sodium Potassium Chloride Carbon Dioxide BUN Creatinine Est GFR ( Amer) Est GFR (Non-Af Amer) BUN/Creatinine Ratio Glucose POC Glucose 417 H* 345 H Calculated Osmolality Calcium Magnesium Total Bilirubin AST ALT Alkaline Phosphatase Serum Total Protein Albumin Globulin Albumin/Globulin Ratio 02/01/17 05:40 WBC RBC Hgb Hct MCV MCH MCHC RDW Plt Count MPV Immature Gran % Seg Neutrophils % Lymphocytes % Monocytes % Eosinophils % Basophils % Neutrophils # Lymphocytes # Monocytes # Eosinophils # Basophils # Sodium 140 Potassium 3.6 Chloride 97 L Carbon Dioxide 38 H BUN 22 H D Creatinine 0.78 Est GFR ( Amer) > 60 Est GFR (Non-Af Amer) > 60 BUN/Creatinine Ratio 28 H Glucose 295 H POC Glucose Calculated Osmolality 304 H Calcium 9.4 Magnesium 1.5 L Total Bilirubin < 0.3 AST 15 ALT 13 Alkaline Phosphatase 110 Serum Total Protein 7.7 Albumin 2.4 L Globulin 5.3 H Albumin/Globulin Ratio 0.5 L Cultures: Cultures 01/30/17 11:31 Blood Culture - Preliminary Peripheral Venipuncture No growth. 01/30/17 11:31 Blood Culture - Preliminary Peripheral Venipuncture No growth. Exam - Constitutional Vitals: Temp Pulse Resp BP Pulse Ox 98.4 F 90 16 177/79 94 02/01/17 04:53 02/01/17 07:00 02/01/17 11:32 02/01/17 07:00 02/01/17 11:32 General appearance: cooperative, morbidly obese, no acute distress - Head Head exam: Present: atraumatic, normal inspection, normocephalic - Eye Eye exam: Present: PERRL, sclera anicteric - ENT ENT exam: Present: mucous membranes moist - Neck Neck exam: Present: lymphadenopathy. Absent: tenderness, thyromegaly Additional comments: obese - Respiratory Respiratory exam: Present: CTAB Additional comments: diminished at bases. - Cardiovascular Cardiovascular exam: Present: RRR, +S1, +S2. Absent: diastolic murmur, systolic murmur - GI/Abdominal Additional comments: multiple surgical scares with periumbilical hernia present. BS + and normoactive. Mild tenderness to palpation in RUQ. No significant change from prior exam. - Extremities Exam Extremities exam: Present: pedal edema (mild bilateral) - Skin Additional comments: No rash or lesions noted. Consult Discharge Plan - Plan Additional Instructions: Continue IV vancomycin for 11 more days. Continue PO Levaquin for 5 more days Referrals: Jr Ruiz MD [Partnered Physician] - 03/06/17 1:00 pm Bony Kelly MD [Primary Care Provider] - 02/09/17 9:45 am Ellis Ruiz DO [Resident] - 02/01/17 2:00 pm ([facility]) Prescriptions: Ipratropium/Albuterol Neb [Duoneb] 3 ml IH [id number] #30 inh levoFLOXacin [Levaquin] 500 mg PO 1800 #5 tab Nebulizer Accessories [A.i.r.s. Nebulizer] 1 each MC Q4H #1 kit Nebulizer/Compressor [[place] Choice Nebulizer] 1 each MC Q4H #1 each Nicotine Patch [Nicoderm] 21 mg TD DAILY #30 patch predniSONE [PredniSONE] 40 mg PO DAILY #3 tablet Vancomycin/0.9 % Sod Chloride [Vanco 1.25 gm/250 ml-0.9% NaCl] 1.25 gm IV BID # 22 plast..bag - Attending Attestation I examined this patient and my medical decision-making was reviewed with the Resident Physician. I agree with the documented findings, disposition and treatment plan as described except to the extent set forth below.
[2017-02-01] MEDS: *HR* HYDROcodone/Acet 5/325 mg TABLET PO PRN (15:13)
[2017-02-01] MEDS: levoFLOXacin 500 MG TABLET PO SCH (16:53)
[2017-02-01] MEDS: rOPINIRole 0.25 MG TABLET PO SCH (23:04)
[2017-02-02] MEDS: MethylPREDNISolone 40 MG/ML VIAL IVP SCH ×2 (00:27→15:44)
[2017-02-02] MEDS: Ipratropium/Albuterol Neb 3 ML IH SCH ×4 (03:37→16:20)
[2017-02-02] MEDS ORDERED: *HR* Enoxaparin 40 MG/0.4 ML SYRINGE SQ SCH (06:00)
[2017-02-02 06:27] LABS: Basophils % 0.1 %; Immature Granulocytes % 0.7 % (0-4)
[2017-02-02 06:29] LABS: Hematocrit 32.9 % (35.3-44.9); Hemoglobin 9.8 g/dL (11.5-15.4); Lymphocytes # 1.3 K/mcL (0.6-4.6); Lymphocytes % 12.3 %; Mean Corpuscular HGB Conc 29.8 g/dL (31.6-35.5); Mean Corpuscular Hemoglobin 23.8 pg (28.0-33.3); Mean Platelet Volume 11.9 fL (9.4-12.4); Monocytes # 0.5 K/mcL (0.0-1.3); Monocytes % 5.1 %; Neutrophils # 8.6 K/mcL (1.6-8.9); Platelet Count 282 K/mcL (140-400); Red Blood Count 4.11 M/mcL (3.82-4.97); Red Cell Distribution Width 16.5 % (11.5-14.5); Segmented Neutrophils % 81.8 %
[2017-02-02 06:42] LABS: Alanine Aminotransferase 12 Units/L (0-55); Albumin 2.4 g/dL (3.5-5.0); Albumin/Globulin Ratio 0.5 (1.1-2.2); Alkaline Phosphatase 88 Units/L (38-126); Aspartate Amino Transferase 12 Units/L (5-34); BUN/Creatinine Ratio 34 (6-26); Blood Urea Nitrogen 27 mg/dL (7-20); Calcium 9.4 mg/dL (8.6-10.8); Carbon Dioxide 37 mEq/L (19-29); Chloride 97 mEq/L (98-109); Globulin 4.7 g/dL (2.4-3.5); Glucose 291 mg/dL (70-99); Magnesium 1.4 mg/dL (1.6-2.6); Osmolality,Calculated 308 (280-300); Potassium 3.5 mEq/L (3.5-4.5); Sodium 141 mEq/L (136-145); Total Protein 7.1 g/dL (6.0-8.3); eGFR For African Americans > 60 (> 60); eGFR For Non-African Americans > 60 (> 60)
[2017-02-02 06:45] LABS: Bilirubin,Total < 0.3 mg/dL (0.2-1.2)
[2017-02-02] MEDS ORDERED: Magnesium Sulfate 2 GM in D5% in Water 100 ML IVPB ONE (06:51)
[2017-02-02 07:46] LABS: Anisocytosis 2+ (Not Present); Hypochromasia Present (Not Present); Microcytosis Present (Not Present); Platelet Estimate Normal (Normal)
--- NOTE | 2017-02-02 09:18 | Physician Discharge Referral ---
<ShaqDamien - Last Filed: 02/02/17 09:16> [facility] Referral Info Transfer To: SNF/ECF Provider in Charge: Donny Arechiga Provider in Charge after Transfer: PCP Institutional Level of Care: Skilled - Diagnosis (1) Bacteremia due to methicillin resistant Staphylococcus aureus Priority: Primary Status: Acute (2) Cellulitis Priority: Primary Status: Acute (3) UTI (urinary tract infection) due to urinary indwelling Chandra catheter Priority: Primary Status: Acute (4) COPD (chronic obstructive pulmonary disease) Priority: Primary Status: Acute (5) Demand ischemia Priority: Primary Status: Acute (6) Endocarditis Priority: Primary Status: Suspected (7) Diabetes mellitus type 2 in obese Priority: Primary Status: Acute (8) CAD (coronary artery disease) Priority: Primary Status: Chronic (9) HLD (hyperlipidemia) Priority: Primary Status: Chronic (10) Essential hypertension Priority: Primary Status: Chronic (11) Tobacco abuse Priority: Primary Status: Chronic (12) CVA (cerebral vascular accident) Priority: Primary Status: Chronic (13) Hypokalemia Priority: Primary Status: Acute (14) Hypomagnesemia Priority: Primary Status: Acute (15) Medical non-compliance Priority: Primary Status: Acute (16) DVT prophylaxis Priority: Primary Status: Acute Prognosis: Good Aware of Diagnosis: Patient, Family Aware of Prognosis: Patient, Family - Transfer Medications Prescriptions: Ipratropium/Albuterol Neb [Duoneb] 3 ml IH [id number] #30 inh levoFLOXacin [Levaquin] 500 mg PO 1800 #5 tab Nebulizer Accessories [A.i.r.s. Nebulizer] 1 each MC Q4H #1 kit Nebulizer/Compressor [[place] Choice Nebulizer] 1 each MC Q4H #1 each Nicotine Patch [Nicoderm] 21 mg TD DAILY #30 patch predniSONE [PredniSONE] 40 mg PO DAILY #3 tablet Vancomycin/0.9 % Sod Chloride [Vanco 1.25 gm/250 ml-0.9% NaCl] 1.25 gm IV BID # 22 plast..bag Home Medications: Aspirin [Lo-Dose Aspirin EC] 81 mg PO DAILY 01/28/17 [History] Beclomethasone Diprop 40mcg [QVAR 40 mcg] 1 puff IH BID 01/28/17 [History] Cholecalciferol (Vitamin D3) [Vitamin D3] 1,000 unit PO DAILY 01/28/17 [History] Clopidogrel [Plavix] 75 mg PO DAILY 01/28/17 [History] Cyclobenzaprine [Flexeril] 10 mg PO TID PRN 01/28/17 [History] Fenofibrate Nanocrystallized [Triglide] 160 mg PO DAILY 01/28/17 [History] Furosemide [Lasix] 40 mg PO DAILY 01/28/17 [History] Gabapentin [Neurontin] 100 mg PO TID 01/28/17 [History] Guaifenesin [Mucinex] 600 mg PO BID PRN 01/28/17 [History] Insulin ASPART [Novolog Flexpen] 7 unit SQ TIDAC MDD plus sliding sale 01/28/17 [History] Insulin Glargine,Hum.rec.anlog [Lantus Solostar] 25 unit SQ HS 01/28/17 [History ] Ipratropium/Albuterol Neb [Duoneb] 3 ml IH Q6HR PRN 01/28/17 [History] Lansoprazole [Prevacid] 30 mg PO DAILY 01/28/17 [History] Lisinopril [Zestril] 20 mg PO DAILY 01/28/17 [History] Magnesium Oxide [Magnesium] 400 mg PO DAILY 01/28/17 [History] Metformin HCl [Glucophage] 1,000 mg PO BID 01/28/17 [History] Metoprolol [Lopressor] 100 mg PO BID 01/28/17 [History] Multivitamin [Multi-Day Vitamins] 1 tab PO DAILY 01/28/17 [History] Touchet-3/Dha/Epa/Fish Oil [Fish Oil 1,000 mg Softgel] 2,000 mg PO BID 01/28/17 [ History] Oxycodone HCl/Acetaminophen [Percocet 7.5-325 mg Tablet] 1 tab PO Q6H PRN [History] Petrolatum,White [Aloe Mcbain] 1 appl TP TID 01/28/17 [History] Potassium Chloride [Klor-Con 10] 20 meq PO DAILY 01/28/17 [History] Ropinirole HCl [Requip] 0.25 mg PO HS 01/28/17 [History] Rosuvastatin [Crestor] 20 mg PO HS 01/28/17 [History] Sertraline [Zoloft] 50 mg PO DAILY 01/28/17 [History] Theophylline Anhydrous [Mateo-24] 200 mg PO DAILY 01/28/17 [History] Tiotropium [Spiriva] 1 cap IH DAILY 01/28/17 [History] amLODIPine [Norvasc] 5 mg PO DAILY 01/28/17 [History] traZODone [TraZODone] 25 - 50 mg PO HS 01/28/17 [History] Acetaminophen [Tylenol] 650 mg PO Q6HR PRN tab 02/02/17 [Rx] Docusate [Colace] 100 mg PO DAILY 02/02/17 [Rx] Enoxaparin [Lovenox] 40 mg SQ 0600 02/02/17 [Rx] HYDROcodone/Acet 5/325 mg [[place] 5-325 mg] 1 tab PO Q4HR PRN #0 tab 02/02/17 [Rx ] Ipratropium/Albuterol Neb [Duoneb] 3 ml IH [id number] #30 inh 02/02/17 [Rx] Nebulizer Accessories [A.i.r.s. Nebulizer] 1 each MC Q4H #1 kit 02/02/17 [Rx] Nebulizer/Compressor [[place] Choice Nebulizer] 1 each MC Q4H #1 each 02/02/17 [ Rx] Nicotine Patch [Nicoderm] 21 mg TD DAILY #30 patch 02/02/17 [Rx] Omeprazole [PriLOSEC] 20 mg PO DAILY@0630 02/02/17 [Rx] Patient Taking Own Medication 0 each PO BID each 02/02/17 [Rx] Vancomycin/0.9 % Sod Chloride [Vanco 1.25 gm/250 ml-0.9% NaCl] 1.25 gm IV BID # 22 plast..bag 02/02/17 [Rx] levoFLOXacin [Levaquin] 500 mg PO 1800 #5 tab 02/02/17 [Rx] predniSONE [PredniSONE] 40 mg PO DAILY #3 tablet 02/02/17 [Rx] Allergies/Adverse Reactions: Allergies Iodinated Contrast- Oral and IV Dye [Iodinated Contrast Media - Oral and] Allergy (Verified 11/28/16 17:51) Anaphylaxis - Respiratory Orders Smoking Cessation: Smoking cessation has been advised. For more information, call the [place] Tobacco Quit Line at 4-537-OFUY-NOW. - Ancillary Orders May use pressure relief devices daily prn - Advance Directives Code Status: Full Code - History and Physical History/Physical reviewed & approved w/add comments: Yes - Mobility Orders Chair - Rehabiliation Orders Rehab Potential: Good Rehab Orders: Evaluation for Physical Therapy, Evaluation for Occupational Therapy - Treatments List/Other: Continue vancomycin IV antibiotics for 11 more days - Diet Orders Cardiac CERTIFICATION: I certify that the transfer of the above named patient to an Extended Care Facility is necessary for the continuing treatment of the diagnosis listed. The above information is true and accurate reflection of patient's current condition. Confidential - Redisclosure prohibited without a patient's written consent. <Donny Arechiga - Last Filed: 02/02/17 17:38> - Respiratory Orders Smoking Cessation: Smoking cessation has been advised. For more information, call the [place] Tobacco Quit Line at 2-996-MCSENOW. CERTIFICATION: I certify that the transfer of the above named patient to an Extended Care Facility is necessary for the continuing treatment of the diagnosis listed. The above information is true and accurate reflection of patient's current condition. Confidential - Redisclosure prohibited without a patient's written consent.
--- NOTE | 2017-02-02 09:25 | Discharge Summary ---
<NeelamDamien shields - Last Filed: 02/02/17 14:20> Date of Encounter: 02/02/17 Time of Encounter: 09:20 - Discharge Diagnosis (1) Bacteremia due to methicillin resistant Staphylococcus aureus Priority: Primary Status: Acute (2) Cellulitis Priority: Primary Status: Acute Qualifiers: Site of cellulitis: extremity Site of cellulitis of extremity: lower extremity Laterality: right Qualified Code(s): L03.115 - Cellulitis of right lower limb (3) UTI (urinary tract infection) due to urinary indwelling Chandra catheter Priority: Primary Status: Acute Qualifiers: Indwelling urinary catheter type: indwelling urethral catheter Encounter type: initial encounter Qualified Code(s): T83.511A - Infection and inflammatory reaction due to indwelling urethral catheter, initial encounter; N39.0 - Urinary tract infection, site not specified (4) COPD (chronic obstructive pulmonary disease) Priority: Primary Status: Acute Qualifiers: COPD type: COPD with acute exacerbation Qualified Code(s): J44.1 - Chronic obstructive pulmonary disease with (acute) exacerbation (5) Demand ischemia Priority: Primary Status: Acute (6) Endocarditis Priority: Primary Status: Suspected Qualifiers: Endocarditis type: infective Infective endocarditis organism: bacterial Chronicity: acute Qualified Code(s): I33.0 - Acute and subacute infective endocarditis (7) Diabetes mellitus type 2 in obese Priority: Primary Status: Acute (8) CAD (coronary artery disease) Priority: Primary Status: Chronic Qualifiers: Coronary Disease-Associated Artery/Lesion type: [place] artery [place] vs. transplanted heart: [place] heart Associated angina: without angina Qualified Code(s): I25.10 - Atherosclerotic heart disease of [place] coronary artery without angina pectoris (9) HLD (hyperlipidemia) Priority: Secondary Status: Chronic Qualifiers: Hyperlipidemia type: pure hypercholesterolemia Qualified Code(s): E78.00 - Pure hypercholesterolemia, unspecified; E78.0 - Pure hypercholesterolemia (10) Essential hypertension Priority: Secondary Status: Chronic (11) Tobacco abuse Priority: Secondary Status: Chronic (12) CVA (cerebral vascular accident) Priority: Secondary Status: Chronic Qualifiers: Precerebral and cerebral artery: posterior cerebral artery Laterality of affected vessel: unspecified Qualified Code(s): I63.339 - Cerebral infarction due to thrombosis of unspecified posterior cerebral artery (13) Hypokalemia Priority: Primary Status: Acute (14) Hypomagnesemia Priority: Primary Status: Acute (15) Medical non-compliance Priority: Primary Status: Acute (16) DVT prophylaxis Priority: Primary Status: Acute - Discharge Medications Prescriptions: Ipratropium/Albuterol Neb [Duoneb] 3 ml IH [id number] #30 inh levoFLOXacin [Levaquin] 500 mg PO 1800 #5 tab Nebulizer Accessories [A.i.r.s. Nebulizer] 1 each MC Q4H #1 kit Nebulizer/Compressor [[place] Choice Nebulizer] 1 each MC Q4H #1 each Nicotine Patch [Nicoderm] 21 mg TD DAILY #30 patch predniSONE [PredniSONE] 40 mg PO DAILY #3 tablet Vancomycin/0.9 % Sod Chloride [Vanco 1.25 gm/250 ml-0.9% NaCl] 1.25 gm IV BID # 22 plast..bag Home Medications: Aspirin [Lo-Dose Aspirin EC] 81 mg PO DAILY 01/28/17 [History] Beclomethasone Diprop 40mcg [QVAR 40 mcg] 1 puff IH BID 01/28/17 [History] Cholecalciferol (Vitamin D3) [Vitamin D3] 1,000 unit PO DAILY 01/28/17 [History] Clopidogrel [Plavix] 75 mg PO DAILY 01/28/17 [History] Cyclobenzaprine [Flexeril] 10 mg PO TID PRN 01/28/17 [History] Fenofibrate Nanocrystallized [Triglide] 160 mg PO DAILY 01/28/17 [History] Furosemide [Lasix] 40 mg PO DAILY 01/28/17 [History] Gabapentin [Neurontin] 100 mg PO TID 01/28/17 [History] Guaifenesin [Mucinex] 600 mg PO BID PRN 01/28/17 [History] Insulin ASPART [Novolog Flexpen] 7 unit SQ TIDAC MDD plus sliding sale 01/28/17 [History] Insulin Glargine,Hum.rec.anlog [Lantus Solostar] 25 unit SQ HS 01/28/17 [History ] Ipratropium/Albuterol Neb [Duoneb] 3 ml IH Q6HR PRN 01/28/17 [History] Lansoprazole [Prevacid] 30 mg PO DAILY 01/28/17 [History] Lisinopril [Zestril] 20 mg PO DAILY 01/28/17 [History] Magnesium Oxide [Magnesium] 400 mg PO DAILY 01/28/17 [History] Metformin HCl [Glucophage] 1,000 mg PO BID 01/28/17 [History] Metoprolol [Lopressor] 100 mg PO BID 01/28/17 [History] Multivitamin [Multi-Day Vitamins] 1 tab PO DAILY 01/28/17 [History] [place]-3/Dha/Epa/Fish Oil [Fish Oil 1,000 mg Softgel] 2,000 mg PO BID 01/28/17 [ History] Oxycodone HCl/Acetaminophen [Percocet 7.5-325 mg Tablet] 1 tab PO Q6H PRN [History] Petrolatum,White [Aloe [place]] 1 appl TP TID 01/28/17 [History] Potassium Chloride [Klor-Con 10] 20 meq PO DAILY 01/28/17 [History] Ropinirole HCl [Requip] 0.25 mg PO HS 01/28/17 [History] Rosuvastatin [Crestor] 20 mg PO HS 01/28/17 [History] Sertraline [Zoloft] 50 mg PO DAILY 01/28/17 [History] Theophylline Anhydrous [Mateo-24] 200 mg PO DAILY 01/28/17 [History] Tiotropium [Spiriva] 1 cap IH DAILY 01/28/17 [History] amLODIPine [Norvasc] 5 mg PO DAILY 01/28/17 [History] traZODone [TraZODone] 25 - 50 mg PO HS 01/28/17 [History] Acetaminophen [Tylenol] 650 mg PO Q6HR PRN tab 02/02/17 [Rx] Docusate [Colace] 100 mg PO DAILY 02/02/17 [Rx] Enoxaparin [Lovenox] 40 mg SQ 0600 02/02/17 [Rx] HYDROcodone/Acet 5/325 mg [[place] 5-325 mg] 1 tab PO Q4HR PRN #0 tab 02/02/17 [Rx ] Ipratropium/Albuterol Neb [Duoneb] 3 ml IH [id number] #30 inh 02/02/17 [Rx] Nebulizer Accessories [A.i.r.s. Nebulizer] 1 each Q4H #1 kit 02/02/17 [Rx] Nebulizer/Compressor [[place] Choice Nebulizer] 1 each MC Q4H #1 each 02/02/17 [ Rx] Nicotine Patch [Nicoderm] 21 mg TD DAILY #30 patch 02/02/17 [Rx] Omeprazole [PriLOSEC] 20 mg PO DAILY@0630 02/02/17 [Rx] Patient Taking Own Medication 0 each PO BID each 02/02/17 [Rx] Vancomycin/0.9 % Sod Chloride [Vanco 1.25 gm/250 ml-0.9% NaCl] 1.25 gm IV BID # 22 plast..bag 02/02/17 [Rx] levoFLOXacin [Levaquin] 500 mg PO 1800 #5 tab 02/02/17 [Rx] predniSONE [PredniSONE] 40 mg PO DAILY #3 tablet 02/02/17 [Rx] Allergies/Adverse Reactions: Allergies Iodinated Contrast- Oral and IV Dye [Iodinated Contrast Media - Oral and] Allergy (Verified 11/28/16 17:51) Anaphylaxis - Notes to Outpatient Provider Continue to monitor CBC and vancomycin trough levels Date of admission: 01/28/17 18:27 Primary care physician: Bony Kelly MD Consults: 01/28/17 21:23 Consult to Physical Therapy [CONS] Routine Comment: Evaluate, develop and implement POC Reason for Consult: Patient has right-sided residual weakness from previous stroke Consult to Speech Therapy [CONS] Routine Comment: Evaluate, develop and implement POC Reason for Consult: Patient has right-sided residual weakness from previous stroke. Also has residual slurred speech from previous stroke. Call Completed: No 01/28/17 21:26 Consult to Occupational Therapy [CONS] Routine Comment: Evaluate, develop and implement POC Reason for Consult: Patient has right-sided residual weakness from previous stroke. 01/28/17 21:34 Consult to Counter Tacker [CONS] Routine Comment: Reason for Consult: Patient with hx of diabetes that is uncontrolled. 01/28/17 23:44 Consult to Automotive Sales Manager [CONS] Routine Reason for SW Consult: Pt and family requesting information about inpatient rehab. Also has home health services. 01/29/17 01:53 Consult to Cardiology [CONS] Routine Comment: Consulting Provider: [facility] [place] Reason for Consult: Elevated troponin ? NSTEMI Call Completed: No 01/30/17 06:43 Consult to Infectious Diseases [CONS] Routine Consulting Provider: [facility] [place] Reason for Consult: MRSA, Gram negative Septicemia Time Notified: 07:50 Call Completed: Yes Discharging clinician: Donny Arechiga Anticipated date of discharge: 02/02/17 - Patient Status Disposition: Transfer SNF Condition: Fair Functional capacity at discharge: wheelchair bound Overall status at discharge: patient is progressing back to baseline - Ambulatory Orders Ambulatory Orders: Comprehensive Metabolic Panel [CHEM] Time Frame: 1 Week, Location: N/A Vancomycin,Trough [CHEM] Time Frame: 1 Week, Location: N/A - Discharge Instructions Instructions: Urinary Tract Infection in Women (DC) Follow Up With: Jr Ruiz MD [Partnered Physician] - 03/06/17 1:00 pm Bony Kelly MD [Primary Care Provider] - 02/09/17 9:45 am Ellis Ruiz DO [Resident] - 02/01/17 2:00 pm (new patient estabished care visit) Additional Instructions: Continue IV vancomycin for 11 more days. Continue PO Levaquin for 5 more days - Diet and Activity Activity: as per physical therapy, wear oxygen at all times Diet: diabetic diet Hospital course: Ms. 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 She has a history of chronic lower extremity wounds and was seen by Dr. Perez at the wound clinic and discharged on 12/22/16 because her wounds were closed. Patient also has a Chandra catheter in place chronically due to previous stroke which has been in place for a year and changed last week. She reports multiple UTIs throughout the previous year. On admission the patient met SIRS criteria of tachycardia and tachypnea. She had an initially elevated Lactic acid of 3.4. She had a normal WBC count on admission which tres to 11.8 on HD # 3. Urine culture yielded Serratia marcescens and peripheral blood cultures yielded MRSA and Gram positive Rods. CT of the abdomen and pelvis revealed a small fat containing umbilical and supraumbilical hernias without evidence of obstruction. No acute intracranial processes were identified on Ct of the head. No acute abnormalities were seen on CXR. There was concern for osteomyelitis of the right lower extremity as she had cellulitis of the right lower extremity with elevated inflammatory markers. MRI revealed no evidence of osteomyelitis. There was however evidence of cellulitis and myositis with no focal fluid collections. Patient had a Right IJ CVC placed on 01/28/17 in the ER which was removed on 01/29/17 following positive blood cultures. She was treated with Vancomycin 1250 mg Q12H and Zosyn 3.375 grams Q8H and ID was consulted. Cardiology was consulted and determined troponin elevation was secondary to the ischemia from sepsis. Patient continued to improve during hospital course and Zosyn was changed to levofloxacin per ID recommendations. Patient was discharged to [facility]CF/SNF for inpatient rehabilitation. She was instructed continue IV vancomycin for a total of 14 days of treatment for MRSA bacteremia and Levaquin for total of 10 days of treatment for UTI. Patient will follow up with PCP and ID on discharge. - Time Spent with Patient Total time spent providing and/or coordinating discharge services: - Constitutional Vitals: Temp Pulse Resp BP Pulse Ox 98.2 F 78 16 170/57 96 02/02/17 08:20 02/02/17 08:20 02/02/17 08:20 02/02/17 08:20 02/02/17 08:20 General appearance: Present: cooperative, A&O X 3, pleasant, no acute distress, answers questions appropriately - Head Head exam: Present: atraumatic, normocephalic - Eye Eye exam: Present: PERRL, conjuntiva pink, sclera anicteric Pupils: Present: PERRL - ENT ENT exam: Present: mucous membranes moist, normal oropharynx - Neck Neck exam general surgery: Present: supple, trachea midline. Absent: lymphadenopathy - Respiratory Respiratory exam: Present: CTAB. Absent: accessory muscle use, rales, rhonchi, wheezes - Cardiovascular Cardiovascular exam: Present: RRR, +S1, +S2. Absent: diastolic murmur, gallop, rubs, systolic murmur - GI/Abdominal GI/Abdominal exam: Present: normal bowel sounds, soft, no peritoneal signs. Absent: distended, tenderness - Extremities Exam Extremities exam: Present: warm, radial pulses palpable and symetrical. Absent : calf tenderness, cyanotic, pedal edema Additional comments: Decreased erythema right anterior guerra, no edema right lower extremity - Neurological Exam Neurological exam: Present: CN II-XII intact, oriented X3, no focal deficits. Absent: pronater drift, facial droop, speech deficit Additional comments: Bedbound, right upper and lower extremity paralysis - Psychiatric Psychiatric exam: Present: normal affect, normal mood - Skin Skin exam: Present: dry, intact Additional comments: 5x3cm plaque right forehead with scaling skin, ulceration / induration warm, decreased erythema right leg below the knee <Donny Arechiga P - Last Filed: 02/02/17 17:38> Date of Encounter: 02/02/17 Date of admission: 01/28/17 18:27 Primary care physician: Bony Kelly MD Consults: 01/28/17 21:23 Consult to Physical Therapy [CONS] Routine Comment: Evaluate, develop and implement POC Reason for Consult: Patient has right-sided residual weakness from previous stroke Consult to Speech Therapy [CONS] Routine Comment: Evaluate, develop and implement POC Reason for Consult: Patient has right-sided residual weakness from previous stroke. Also has residual slurred speech from previous stroke. Call Completed: No 01/28/17 21:26 Consult to Occupational Therapy [CONS] Routine Comment: Evaluate, develop and implement POC Reason for Consult: Patient has right-sided residual weakness from previous stroke. 01/28/17 21:34 Consult to Counter Tacker [CONS] Routine Comment: Reason for Consult: Patient with hx of diabetes that is uncontrolled. 01/28/17 23:44 Consult to Automotive Sales Manager [CONS] Routine Reason for SW Consult: Pt and family requesting information about inpatient rehab. Also has home health services. 01/29/17 01:53 Consult to Cardiology [CONS] Routine Comment: Consulting Provider: [facility] [place] Reason for Consult: Elevated troponin ? NSTEMI Call Completed: No 01/30/17 06:43 Consult to Infectious Diseases [CONS] Routine Consulting Provider: Infectious [facility] [place] Reason for Consult: MRSA, Gram negative Septicemia Time Notified: 07:50 Call Completed: Yes 02/02/17 12:44 Consult to Invasive Line Access Team [CONS] Routine Reason for Consult: Picc Line Insertion Line Type: PICC PICC line indications: senior care Med/Antibiotic Time Notified: 12:44 Call Completed: Yes 02/02/17 14:33 Consult to Invasive Line Access Team [CONS] Routine Reason for Consult: Picc Line Insertion Line Type: PICC Hospital course: Ms. Lauren is a 61 year old female - Time Spent with Patient Total time spent providing and/or coordinating discharge services: - Constitutional Vitals: Temp Pulse Resp BP Pulse Ox 99.1 F 79 16 146/57 92 02/02/17 15:49 02/02/17 15:49 02/02/17 16:23 02/02/17 15:49 02/02/17 16:23 - Attending Attestation I examined this patient and my medical decision-making was reviewed with the Resident Physician. I agree with the documented findings, disposition and treatment plan as described except to the extent set forth below.
[2017-02-02] MEDS: Metoprolol 100 MG TABLET PO SCH (09:42)
[2017-02-02] MEDS: Magnesium Oxide 400 MG TABLET PO SCH (09:42)
[2017-02-02] MEDS: Furosemide 40 MG TABLET PO SCH (09:43)
[2017-02-02] MEDS: amLODIPine 5 MG TABLET PO SCH (09:43)
[2017-02-02] MEDS: Cholecalciferol (D-3) 1,000 UNIT TABLET PO SCH (09:43)
[2017-02-02] MEDS: Lisinopril 20 MG TABLET PO SCH (09:43)
[2017-02-02] MEDS: Gabapentin 100 MG CAPSULE PO SCH ×2 (09:43→15:54)
[2017-02-02] MEDS: Aspirin Enteric Coated 81 MG Tablet PO SCH (09:43)
[2017-02-02] MEDS: Insulin DETEMIR 100 UNIT/ML X5UNITS SQ SCH (09:44)
[2017-02-02] MEDS: Insulin LISPRO 300 UNITS/3 ML VIAL SQ SCH ×3 (09:44→17:11)
[2017-02-02] MEDS: Nicotine 21 MG PATCH.TD24 TD SCH (09:44)
[2017-02-02] MEDS ORDERED: Vancomycin 1,000 MG in D5% in Water 250 ML IVPB SCH (11:00)
[2017-02-02] MEDS ORDERED: Lidocaine -MPF 1% 5 ML AMPUL INFILT ONE ×2 (12:44→14:33)
[2017-02-02] MEDS: Fenofibrate 54 MG TABLET PO SCH (15:45)
[2017-02-02 15:51] VITALS: BP 146/57
--- NOTE | 2017-02-02 16:12 | Infectious Disease Progress No ---
Date of Encounter: 02/02/17 Time of Encounter: 16:10 - Assessment and Plan (1) Bacteremia Current Visit: Yes Status: Acute Causative organism: MRSA. Source likely RLE cellulitis/myositis. Dose not meet any SIRS criteria today. Peripheral blood cultures drawn 01/28/17 are positive 1/2 sets for MRSA. With GPR as well. Repeat peripheral blood cultures drawn 01/30/17 are NGTD. Not sure that this is a true infection given the clinical picture, but given that the cultured organism is MRSA, will need to treat as such. TTE 01/29/17 negative for valvular vegetations. The patient has one minor Modified [place]'s Criteria. ( 1/2 blood cultures positive for Staph arureas) Index of suspicion for IE low. Given her chronic medical conditions and comorbidities would be high risk for SAIDA and is reasonable to forego SAIDA at this time. Continue Vancomycin IV. Pharmacy to dose. Goal trough ~15. Duration of treatment will be 2 weeks from first negative blood culture. Monitor renal function and for drug toxicity and dose-adjust antibiotics. (2) UTI (urinary tract infection) Current Visit: Yes Status: Acute Comlpicated by chronic indwelling rubio catheter. Serratia Marcescens is the causative organism. Recommend completing a total of 10 days of antibiotics. Currently on Levofloxacin. Qualifiers: Urinary tract infection type: catheter-associated UTI Indwelling urinary catheter type: indwelling urethral catheter Encounter type: subsequent encounter Qualified Code(s): T83.511D - Infection and inflammatory reaction due to indwelling urethral catheter, subsequent encounter; N39.0 - Urinary tract infection, site not specified (3) Cellulitis Current Visit: Yes Status: Acute MRI shows cellulitis/ Myositis. clinically appears to be resolving Continue vancomycin. Qualifiers: Site of cellulitis: extremity Site of cellulitis of extremity: upper extremity Laterality: right Qualified Code(s): L03.113 - Cellulitis of right upper limb (4) Bacterial myositis Current Visit: Yes Status: Acute Location: RLE. Noted on MRI. Antibiotics as above. (5) Rash Current Visit: Yes Status: Acute Location: Left upper forehead. possibly sebborheic dermatitis. Consider topical antibiotic ointment and encourage patient to avoid picking. (6) Leukocytosis Current Visit: Yes Status: Resolved The patient had an isolated event of very mild leukocytosis. Resolved. Qualifiers: Leukocytosis type: unspecified Qualified Code(s): D72.829 - Elevated white blood cell count, unspecified (7) Chronic indwelling Rubio catheter Current Visit: Yes Status: Acute (8) Diabetes Current Visit: Yes Status: Acute blood glucose ranging from 213 to 395. Should improve with weaning of steroids. recommend tight glycemic control to prevent recurrent infections. primary team managing. Qualifiers: Diabetes mellitus type: type 2 Diabetes mellitus complication status: without complication Diabetes mellitus exterminator helper insulin use: without exterminator helper use Qualified Code(s): E11.9 - Type 2 diabetes mellitus without complications (9) Elevated troponin Current Visit: Yes Status: Acute trending down. cardiology following. Recommended against further invasive testing at this time. (10) History of CVA (cerebrovascular accident) Current Visit: Yes Status: Acute (11) History of coronary artery bypass graft Current Visit: Yes Status: Acute - Subjective Interval history: No major events overnight. Patient states that she is feeling better. she denies any adverse reactions from her antibiotics. Speifically she denies any increased wheezing, dypsnea, rash or diarrhea. She dose have some concerns about her blood sugars" going to high on steroids". Other villa she has no further complaints or concerns at this time. Infect Dis PN-Objective Data - Labs CBC & Chem 7: 02/02/17 06:00 02/02/17 06:00 Labs: Laboratory Results - last 24 hr 02/01/17 02/01/17 02/01/17 07:45 11:57 16:44 WBC RBC Hgb Hct MCV MCH MCHC RDW Plt Count MPV Immature Gran % Seg Neutrophils % Lymphocytes % Monocytes % Eosinophils % Basophils % Neutrophils # Lymphocytes # Monocytes # Eosinophils # Basophils # Platelet Estimate Hypochromasia Anisocytosis Microcytosis Sodium Potassium Chloride Carbon Dioxide BUN Creatinine Est GFR ( Amer) Est GFR (Non-Af Amer) BUN/Creatinine Ratio Glucose POC Glucose 311 H 371 H 286 H Calculated Osmolality Calcium Phosphorus Magnesium Total Bilirubin AST ALT Alkaline Phosphatase Serum Total Protein Albumin Globulin Albumin/Globulin Ratio Vancomycin Trough 02/01/17 02/02/17 02/02/17 20:29 06:00 06:00 WBC 10.5 RBC 4.11 Hgb 9.8 L Hct 32.9 L MCV 80.0 L MCH 23.8 L MCHC 29.8 L RDW 16.5 H Plt Count 282 MPV 11.9 Immature Gran % 0.7 Seg Neutrophils % 81.8 Lymphocytes % 12.3 Monocytes % 5.1 Eosinophils % 0.0 Basophils % 0.1 Neutrophils # 8.6 Lymphocytes # 1.3 Monocytes # 0.5 Eosinophils # 0.0 Basophils # 0.0 Platelet Estimate Normal Hypochromasia Present A Anisocytosis 2+ A Microcytosis Present A Sodium 141 Potassium 3.5 Chloride 97 L Carbon Dioxide 37 H BUN 27 H Creatinine 0.80 Est GFR ( Amer) > 60 Est GFR (Non-Af Amer) > 60 BUN/Creatinine Ratio 34 H Glucose 291 H POC Glucose 395 H Calculated Osmolality 308 H Calcium 9.4 Phosphorus 4.0 Magnesium 1.4 L Total Bilirubin < 0.3 AST 12 ALT 12 Alkaline Phosphatase 88 Serum Total Protein 7.1 Albumin 2.4 L Globulin 4.7 H Albumin/Globulin Ratio 0.5 L Vancomycin Trough 02/02/17 10:00 WBC RBC Hgb Hct MCV MCH MCHC RDW Plt Count MPV Immature Gran % Seg Neutrophils % Lymphocytes % Monocytes % Eosinophils % Basophils % Neutrophils # Lymphocytes # Monocytes # Eosinophils # Basophils # Platelet Estimate Hypochromasia Anisocytosis Microcytosis Sodium Potassium Chloride Carbon Dioxide BUN Creatinine Est GFR ( Amer) Est GFR (Non-Af Amer) BUN/Creatinine Ratio Glucose POC Glucose Calculated Osmolality Calcium Phosphorus Magnesium Total Bilirubin AST ALT Alkaline Phosphatase Serum Total Protein Albumin Globulin Albumin/Globulin Ratio Vancomycin Trough 24.1 H* Cultures: Cultures 01/30/17 11:31 Blood Culture - Preliminary Peripheral Venipuncture No growth. 01/30/17 11:31 Blood Culture - Preliminary Peripheral Venipuncture No growth. Exam - Constitutional Vitals: Temp Pulse Resp BP Pulse Ox 99.1 F 79 16 146/57 94 02/02/17 15:49 02/02/17 15:49 02/02/17 15:49 02/02/17 15:49 02/02/17 15:49 General appearance: cooperative, morbidly obese, no acute distress - Head Head exam: Present: atraumatic, normal inspection, normocephalic - Eye Eye exam: Present: PERRL, sclera anicteric - ENT ENT exam: Present: mucous membranes dry Additional comments: poor dentition. - Neck Neck exam: Present: normal inspection. Absent: lymphadenopathy, tenderness, thyromegaly Additional comments: obese - Respiratory Additional comments: mild course breath sounds at the lower right lung field. diminished throughout. Improving overall. normal effort and converses easily. - Cardiovascular Cardiovascular exam: Present: RRR, +S1, +S2. Absent: clicks, diastolic murmur, gallop, JVD, rubs, +S3, +S4, systolic murmur - GI/Abdominal Additional comments: obese surgical scars present normoactive bowel sounds Mild Tenderness in RUQ No guarding No change from yesterdays exam. - Extremities Exam Extremities exam: Present: pedal edema (1+ to the level of the guerra. ) - Neurological Exam Additional comments: right hemiparesis is still present. unable to move her right arm or leg., - Skin Additional comments: No rashes or lesions noted. mild ecchymosis of the upper extremities. Consult Discharge Plan - Plan Instructions: Urinary Tract Infection in Women (DC) Additional Instructions: Continue IV vancomycin for 11 more days. Continue PO Levaquin for 5 more days Referrals: Jr Ruiz MD [Partnered Physician] - 03/06/17 1:00 pm Bony Kelly MD [Primary Care Provider] - 02/09/17 9:45 am Ellis Ruiz DO [Resident] - 02/01/17 2:00 pm ([facility]) Prescriptions: Ipratropium/Albuterol Neb [Duoneb] 3 ml IH [id number] #30 inh levoFLOXacin [Levaquin] 500 mg PO 1800 #5 tab Nebulizer Accessories [A.i.r.s. Nebulizer] 1 each MC Q4H #1 kit Nebulizer/Compressor [[place] Choice Nebulizer] 1 each MC Q4H #1 each Nicotine Patch [Nicoderm] 21 mg TD DAILY #30 patch predniSONE [PredniSONE] 40 mg PO DAILY #3 tablet Vancomycin/0.9 % Sod Chloride [Vanco 1.25 gm/250 ml-0.9% NaCl] 1.25 gm IV BID # 22 plast..bag - Attending Attestation I examined this patient and my medical decision-making was reviewed with the Resident Physician. I agree with the documented findings, disposition and treatment plan as described except to the extent set forth below.
[2017-02-02] MEDS: levoFLOXacin 500 MG TABLET PO SCH (17:11)
== END 2017-02-02 19:23 | DRG 720 ==
LOC: EMEROO 13:57 → SUATTDRO 18:27 → 2NENU 18:27
PROVIDERS: ADMIT Nurse Practitioner Family; ATTEND Internal Medicine

== ENCOUNTER 2017-08-07 22:03 | Inpatient (IN) ==
[2017-08-07 22:50] LABS: Bilirubin,Urine Negative (Negative); Blood,Urine Large (Negative); Color,Urine Yellow (Yellow); Glucose,Urine (UA) Normal (Normal); Ketones,Urine Negative (Negative); Leukocyte Esterase,Urine Large (Negative); Nitrite,Urine Negative (Negative); Protein,Urine 100 mg/dL (Neg-Trace); Urobilinogen,Urine Normal (Normal)
[2017-08-07 22:51] LABS: Bacteria,Urine Many per hpf (None-Few); Hyaline Casts,Urine None Seen per lpf (None-Few); RBC,Urine 15-30 per hpf (0-3); Squamous Epithelial Cell,Urine Many per lpf (None-Few); WBC,Urine TNTC per hpf (0-3)
[2017-08-07 22:52] LABS: Clarity,Urine Cloudy (Clear)
[2017-08-07 23:17] LABS: Basophils # 0.1 K/mcL (0.0-0.2); Basophils % 0.5 %; Eosinophils # 0.3 K/mcL (0.0-0.6); Eosinophils % 2.6 %; Hematocrit 40.8 % (35.3-44.9); Hemoglobin 12.1 g/dL (11.5-15.4); Immature Granulocytes % 0.5 % (0-4); Lymphocytes # 2.5 K/mcL (0.6-4.6); Lymphocytes % 25.6 %; Mean Corpuscular HGB Conc 29.7 g/dL (31.6-35.5); Mean Corpuscular Hemoglobin 23.9 pg (28.0-33.3); Mean Corpuscular Volume 80.6 fL (83.0-100.0); Mean Platelet Volume 11.9 fL (9.4-12.4); Monocytes # 0.3 K/mcL (0.0-1.3); Monocytes % 3.3 %; Platelet Count 265 K/mcL (140-400); Red Blood Count 5.06 M/mcL (3.82-4.97); Red Cell Distribution Width 17.7 % (11.5-14.5); Segmented Neutrophils % 67.5 %
[2017-08-07 23:36] LABS: Neutrophils # 6.6 K/mcL (1.6-8.9)
[2017-08-07 23:38] LABS: Alanine Aminotransferase 7 Units/L (7-52); Albumin 3.6 g/dL (3.5-5.7); Albumin/Globulin Ratio 0.9 (1.1-2.2); Alkaline Phosphatase 125 Units/L (34-104); Aspartate Amino Transferase 12 Units/L (13-39); BUN/Creatinine Ratio 13 (6-26); Bilirubin,Total 0.3 mg/dL (0.3-1.0); Blood Urea Nitrogen 10 mg/dL (8-23); Calcium 8.8 mg/dL (8.6-10.3); Carbon Dioxide 28 mEq/L (23-29); Chloride 97 mEq/L (98-107); Globulin 3.9 g/dL (2.4-3.5); Glucose 258 mg/dL (70-105); Osmolality,Calculated 288 (280-300); Potassium 4.1 mEq/L (3.5-5.1); Sodium 135 mEq/L (136-145); Total Protein 7.5 g/dL (6.4-8.9); eGFR For African Americans > 60 (> 60); eGFR For Non-African Americans > 60 (> 60)
--- NOTE | 2017-08-08 | Emergency Department Note ---
Disposition Clinical Impression: Elevated troponin, Hypomagnesemia, Weakness generalized UTI (urinary tract infection) Qualifiers: Urinary tract infection type: site unspecified Hematuria presence: with hematuria Qualified Code(s): N39.0 - Urinary tract infection, site not specified Diarrhea Qualifiers: Diarrhea type: unspecified type Qualified Code(s): R19.7 - Diarrhea, unspecified Disposition: Admitted As Inpatient Condition: Good Referrals: Kathy Acosta DO [Primary Care Provider] - Forms: ED Satisfaction Letter Time of Disposition: 02:04 Weakness HPI - General Chief complaint: ED Weakness Stated complaint: "Weak/Chills/Diarrhea" Time Seen by Provider: 08/07/17 22:34 Source: patient, family Nursing Notes Reviewed: Yes Vital Signs Reviewed: Yes - History of Present Illness Pt Subjective Complaint: generalized weakness/fatigue Onset (ago): day(s) Duration: gradually worsening Pain Scale: 5 Improves with: none Worsens with: none Associated symptoms: Reports: fever/chills, headaches, other (diarrhea). Denies : chest pain, dark stools, diaphoresis, loss of appetite - Related Data Home Medications Medication Instructions Recorded Confirmed Aspirin [Lo-Dose Aspirin EC] 81 mg PO DAILY 01/28/17 01/28/17 Beclomethasone Diprop 40mcg [QVAR 1 puff IH BID 01/28/17 01/28/17 40 mcg] Cholecalciferol (Vitamin D3) 1,000 unit PO DAILY 01/28/17 01/28/17 [Vitamin D3] Clopidogrel [Plavix] 75 mg PO DAILY 01/28/17 01/28/17 Cyclobenzaprine [Flexeril] 10 mg PO TID PRN 01/28/17 01/28/17 Fenofibrate Nanocrystallized 160 mg PO DAILY 01/28/17 01/28/17 [Triglide] Furosemide [Lasix] 40 mg PO DAILY 01/28/17 01/28/17 Gabapentin [Neurontin] 100 mg PO TID 01/28/17 01/28/17 Guaifenesin [Mucinex] 600 mg PO BID PRN 01/28/17 01/28/17 Insulin ASPART [Novolog Flexpen] 7 unit SQ TIDAC MDD plus sliding 01/28/1701/28 sale Insulin Glargine,Hum.rec.anlog 25 unit SQ HS 01/28/17 01/28/17 [Lantus Solostar] Ipratropium/Albuterol Neb [Duoneb] 3 ml IH Q6HR PRN 01/28/17 01/28/17 Lansoprazole [Prevacid] 30 mg PO DAILY 01/28/17 01/28/17 Lisinopril [Zestril] 20 mg PO DAILY 01/28/17 01/28/17 Magnesium Oxide [Magnesium] 400 mg PO DAILY 01/28/17 01/28/17 Metformin HCl [Glucophage] 1,000 mg PO BID 01/28/17 01/28/17 Metoprolol [Lopressor] 100 mg PO BID 01/28/17 01/28/17 Multivitamin [Multi-Day Vitamins] 1 tab PO DAILY 01/28/17 01/28/17 [place]-3/Dha/Epa/Fish Oil [Fish Oil 2,000 mg PO BID 01/28/17 01/28/17 1,000 mg Softgel] Oxycodone HCl/Acetaminophen 1 tab PO Q6H PRN 01/28/17 01/28/17 [Percocet 7.5-325 mg Tablet] Petrolatum,White [Aloe [place]] 1 appl TP TID 01/28/17 01/28/17 Potassium Chloride [Klor-Con 10] 20 meq PO DAILY 01/28/17 01/28/17 Ropinirole HCl [Requip] 0.25 mg PO HS 01/28/17 01/28/17 Rosuvastatin [Crestor] 20 mg PO HS 01/28/17 01/28/17 Sertraline [Zoloft] 50 mg PO DAILY 01/28/17 01/28/17 Theophylline Anhydrous [Mateo-24] 200 mg PO DAILY 01/28/17 01/28/17 Tiotropium [Spiriva] 1 cap IH DAILY 01/28/17 01/28/17 amLODIPine [Norvasc] 5 mg PO DAILY 01/28/17 01/28/17 traZODone [TraZODone] 25 - 50 mg PO HS 01/28/17 01/28/17 Previous Rx's Medication Instructions Recorded Acetaminophen [Tylenol] 650 mg PO Q6HR PRN tab 02/02/17 Docusate [Colace] 100 mg PO DAILY 02/02/17 Enoxaparin [Lovenox] 40 mg SQ 0600 02/02/17 HYDROcodone/Acet 5/325 mg [[place] 1 tab PO Q4H PRN #7 tab 02/02/17 5-325 mg] Ipratropium/Albuterol Neb [Duoneb] 3 ml IH [id number] #30 inh 02/02/17 Nebulizer Accessories [A.i.r.s. 1 each MC Q4H #1 kit 02/02/17 Nebulizer] Nebulizer/Compressor [[place] 1 each MC Q4H #1 each 02/02/17 Choice Nebulizer] Nicotine Patch [Nicoderm] 21 mg TD DAILY #30 patch 02/02/17 Omeprazole [PriLOSEC] 20 mg PO DAILY@0630 02/02/17 Patient Taking Own Medication 0 each PO BID each 02/02/17 Vancomycin/0.9 % Sod Chloride 1.25 gm IV BID #22 plast..bag 02/02/17 [Vanco 1.25 gm/250 ml-0.9% NaCl] levoFLOXacin [Levaquin] 500 mg PO 1800 #5 tab 02/02/17 predniSONE [PredniSONE] 40 mg PO DAILY #3 tablet 02/02/17 Allergies Allergy/AdvReac Type Severity Reaction Status Date / Time Iodinated Contrast- Oral and Allergy Anaphylaxis Verified 11/28/16 17:51 IV Dye [Iodinated Contrast Media - Oral and] All systems ED: reviewed and negative except as stated. Review of Systems: As Per HPI Constitutional: Denies: fever, chills Eyes: Denies: eye pain ENT ED: Denies: ear pain, throat pain Cardiovascular: Denies: palpitations Respiratory: Denies: dyspnea Gastrointestinal: Denies: abdominal pain, nausea, vomiting Genitourinary: Denies: dysuria Musculoskeletal: Denies: back pain Integumentary: Denies: rash Neurological: Reports: as per HPI, other (weakness). Denies: numbness, paresthesias Endocrine: Reports: as per HPI Hematological/Lymphatic: Denies: easy bleeding Allergic/Immunologic: Denies: facial swelling Past Medical History - Past Medical History Medical history: Reports: cancer, CHF, COPD, coronary artery disease, CVA, DVT, diabetes, hyperlipidemia, hypertension, myocardial infarction Surgical history: Reports: cancer surgery, carotid endarterectomy, coronary bypass (CABG), LE vascular intervention Psychiatric history: Reports: depression - Social History Smoking Status: Current every day smoker Smokeless Tobacco Status: No Alcohol use: Reports: none Drug use: Reports: none Physical Exam - General Limitations: no limitations General appearance: alert, in no apparent distress - Head Head exam: normocephalic, other (left front scalp/hair line lesion) - Eye Eye exam: Present: normal appearance, EOMI - Neck Neck exam: Present: normal inspection, full ROM - Chest Chest inspection: Present: symmetric chest wall rise - Respiratory Respiratory exam: Present: normal lung sounds bilaterally, wheezes. Absent: respiratory distress - Cardiovascular Cardiovascular exam: Present: regular rate, normal rhythm - Abdominal Exam Abdominal exam: Present: soft, Non-Tender - Extremities Exam Extremities exam: Present: normal inspection, normal capillary refill, other ( Right side weakness of RUE, RLE) - Back Exam Back exam: Present: full ROM - Neurological Exam Neurological exam: Present: alert, oriented X3 - Psychiatric Psychiatric exam: Present: normal affect, normal mood - Skin Skin exam: Present: warm, dry, intact, normal color. Absent: rash, cyanosis, diaphoresis Course Course Narrative: Patient is a 62-year-old female who is wheel chair bound and has known h/o of right sided hemiparesis due to CVA (approx 5 years ago) that presents with c/o of generalized weakness 3 weeks, cough 4 days, and diarrhea 1 month. She describes becoming more weak over this time. She mentions a previous history of stroke, chronic right-sided weakness, and utilizes a rubio catheter. She is accompanied by her son (POA of health decisions) and other family members. They mention they received call regarding her blood work from her PCP advising to come to ED. She mentions she has felt feverish at home. Initial lab work was placed upon patient's arrival to exam. She denies any bloody stools, abdominal pain, CP, SOB, recent antibiotic use. She history of COPD, DM, CAD, CVA, MRSA Pt Seen and examined. She is alert and oriented 3. She does not look toxic. [place]az[place] Coma Scale 15. Vitals within normal limits on O2. Lungs bilateral scattered wheezing, no respiratory distress. 2 x 3 cm excoriation over left frontal scalp line. Otherwise head and face atraumatic. Abdomen soft, nondistended, no guarding. Right side weakness consistent with patient's history. Abrasions on back, no concerning signs for infectious process, does not appear vesicular. Initial lab work has been ordered. Urine appears contaminated, and per nursing urine was taken from pt's rubio bag. Will plan recath and clean specimen. No elevation of WBC. Pt afevrile not tachycardic. She does not appear ill. No concern for sepsis. at this time. I will add in a cardiac workout with c/o of weakness, and magnesium due to h/o of hypomagnesium and diarreha. - Reevaluation(s) Reevaluation #1: Workup shows hypomagnesemia. This does appear to be chronic, Pedro has worsened since previous lab work at her PCPs a few days ago. She also has critical troponin, however lower than previous last summer at which time she had cardiac consult is Dr. mentation mentions likely demand ischemia , likely ACS. Today patient denies any shortness of breath, chest pain, or exertional component. Patient's urine was collected after a new catheter, and it is consistent with a urinary tract infection. She has had these in the past. Chest x-ray also concerning for atelectasis versus pneumonia. The patient initially presented with generalized weakness. Pt has had subjective fevers at home, is afebrile here, no tachycardia and no elevated white count. She does have a history of positive blood cultures for MRSA. We will draw a lactic acid and blood cultures. Initiate antibiotics for her UTI, and IV magnesium. Previous urine cx sensitive to ceftriaxone. I did have a discussion with patient regarding inpatient admission for further evaluation and treatment. She is accompanied by her son, who is power of insurance attorney for her health conditions. He is agreeable to admission, and at this time patient is as well. Patient was discussed with Dr. Fountain who agreed for admission for UTI, elevated troponin, hypomagnesemia, generalized weakness, diarrhea. Will discuss with hospitalist for admission. Time: 01:35 Reevaluation #2: I discussed UA with labor specialist who confirmed second UA tonight was from urine taken from new rubio cath. Urine culture ordered. I reviewed patient's medication list with patient. She mentions she has not taken any prednisone for "a while", and mentions most recent Abx was at least a month ago and she thinks it was for a UTI. Pt discussed with and accepted by hospitalist Dr. Cho, who agreed with Mg , abx, and also requested Tele bed, fluids Time: 01:56 Vital Signs Temperature 98.8 F 08/07/17 22:08 Pulse Rate 92 08/07/17 22:08 Respiratory Rate 18 08/07/17 22:08 Blood Pressure 174/82 08/07/17 22:08 O2 Sat by Pulse Oximetry 92 08/07/17 22:08 Temperature 98.8 F 08/07/17 22:08 Pulse Rate 95 08/08/17 01:30 Respiratory Rate 18 08/08/17 01:30 Blood Pressure 132/67 08/08/17 01:30 O2 Sat by Pulse Oximetry 91 08/08/17 01:30 Oxygen Delivery Oxygen Delivery Nasal Cannula Weakness - MDM Narrative Medical decision making narrative: Chest X-Ray 08/07/17 22:35 IMPRESSION: Mild bibasilar airspace disease, atelectasis versus pneumonia. D/ / Mirna Powers MD / Mirna Powers MD Interpreting Provider: Mirna Powers MD Laboratory Tests 08/07/17 08/07/17 08/07/17 22:42 23:07 23:07 WBC 9.7 RBC 5.06 H Hgb 12.1 Hct 40.8 MCV 80.6 L MCH 23.9 L MCHC 29.7 L RDW 17.7 H Plt Count 265 MPV 11.9 Immature Gran % 0.5 Seg Neutrophils % 67.5 Lymphocytes % 25.6 Monocytes % 3.3 Eosinophils % 2.6 Basophils % 0.5 Neutrophils # 6.6 Lymphocytes # 2.5 Monocytes # 0.3 Eosinophils # 0.3 Basophils # 0.1 Sodium 135 L Potassium 4.1 Chloride 97 L Carbon Dioxide 28 BUN 10 Creatinine 0.79 Est GFR ( Amer) > 60 Est GFR (Non-Af Amer) > 60 BUN/Creatinine Ratio 13 Glucose 258 H Calculated Osmolality 288 Calcium 8.8 Magnesium 1.0 L Total Bilirubin 0.3 AST 12 L ALT 7 Alkaline Phosphatase 125 H Troponin I B-Natriuretic Peptide Serum Total Protein 7.5 Albumin 3.6 Globulin 3.9 H Albumin/Globulin Ratio 0.9 L Urine Color Yellow Urine Clarity Cloudy A Urine pH 6.0 Ur Specific [place] 1.010 Urine Protein 100 H Urine Glucose (UA) Normal Urine Ketones Negative Urine Blood Large H Urine Nitrite Negative Urine Bilirubin Negative Urine Urobilinogen Normal Ur Leukocyte Esterase Large H Urine Microscopic RBC 15-30 H Urine Microscopic WBC TNTC H Ur Squamous Epith Cells Many H Urine Bacteria Many H Hyaline Casts None Seen Ur Culture Indicated? NO. 08/07/17 08/07/17 08/08/17 23:07 23:07 00:16 WBC RBC Hgb Hct MCV MCH MCHC RDW Plt Count MPV Immature Gran % Seg Neutrophils % Lymphocytes % Monocytes % Eosinophils % Basophils % Neutrophils # Lymphocytes # Monocytes # Eosinophils # Basophils # Sodium Potassium Chloride Carbon Dioxide BUN Creatinine Est GFR ( Amer) Est GFR (Non-Af Amer) BUN/Creatinine Ratio Glucose Calculated Osmolality Calcium Magnesium Total Bilirubin AST ALT Alkaline Phosphatase Troponin I 0.07 H* B-Natriuretic Peptide 86 Serum Total Protein Albumin Globulin Albumin/Globulin Ratio Urine Color Yellow Urine Clarity Turbid A Urine pH 5.5 Ur Specific [place] 1.021 Urine Protein 100 H Urine Glucose (UA) Normal Urine Ketones Negative Urine Blood Large H Urine Nitrite Negative Urine Bilirubin Negative Urine Urobilinogen Normal Ur Leukocyte Esterase Large H Urine Microscopic RBC TNTC H Urine Microscopic WBC TNTC H Ur Squamous Epith Cells Many H Urine Bacteria Many H Hyaline Casts None Seen Ur Culture Indicated? NO. - Medical Records Medical records reviewed: Yes I reviewed the patient's medical records. - Lab Data Lab results reviewed: Yes I reviewed the patient's lab results. Result diagrams: 08/07/17 23:07 08/07/17 23:07 Lab Results 08/07/17 08/07/17 08/07/17 Range/Units 22:42 23:07 23:07 WBC 9.7 (4.3-11.1) K/mcL RBC 5.06 H (3.82-4.97) M/mcL Hgb 12.1 (11.5-15.4) g/dL Hct 40.8 (35.3-44.9) % MCV 80.6 L (83.0-100.0) fL MCH 23.9 L (28.0-33.3) pg MCHC 29.7 L (31.6-35.5) g/dL RDW 17.7 H (11.5-14.5) % Plt Count 265 (140-400) K/mcL MPV 11.9 (9.4-12.4) fL Immature Gran % 0.5 (0-4) % Seg Neutrophils % 67.5 % Lymphocytes % 25.6 % Monocytes % 3.3 % Eosinophils % 2.6 % Basophils % 0.5 % Neutrophils # 6.6 (1.6-8.9) K/mcL Lymphocytes # 2.5 (0.6-4.6) K/mcL Monocytes # 0.3 (0.0-1.3) K/mcL Eosinophils # 0.3 (0.0-0.6) K/mcL Basophils # 0.1 (0.0-0.2) K/mcL Sodium 135 L (136-145) mEq/L Potassium 4.1 (3.5-5.1) mEq/L Chloride 97 L (98-107) mEq/L Carbon Dioxide 28 (23-29) mEq/L BUN 10 (8-23) mg/dL Creatinine 0.79 (0.60-1.20) mg/dL Est GFR ( Amer) > 60 (> 60) Est GFR (Non-Af Amer) > 60 (> 60) BUN/Creatinine Ratio 13 (6-26) Glucose 258 H (70-105) mg/dL Calculated Osmolality 288 (280-300) Calcium 8.8 (8.6-10.3) mg/dL Magnesium 1.0 L (1.6-2.6) mg/dL Total Bilirubin 0.3 (0.3-1.0) mg/dL AST 12 L (13-39) Units/L ALT 7 (7-52) Units/L Alkaline Phosphatase 125 H (34-104) Units/L Troponin I (< 0.04) ng/mL B-Natriuretic Peptide (Less than 100) pg/mL Serum Total Protein 7.5 (6.4-8.9) g/dL Albumin 3.6 (3.5-5.7) g/dL Globulin 3.9 H (2.4-3.5) g/dL Albumin/Globulin Ratio 0.9 L (1.1-2.2) Urine Color Yellow (Yellow) Urine Clarity Cloudy A (Clear) Urine pH 6.0 (5.0-8.0) pH Units Ur Specific [place] 1.010 (1.010-1.025) Urine Protein 100 H (Neg-Trace) mg/dL Urine Glucose (UA) Normal (Normal) mg/dL Urine Ketones Negative (Negative) mg/dL Urine Blood Large H (Negative) Urine Nitrite Negative (Negative) Urine Bilirubin Negative (Negative) Urine Urobilinogen Normal (Normal) mg/dL Ur Leukocyte Esterase Large H (Negative) Urine Microscopic RBC 15-30 H (0-3) per hpf Urine Microscopic WBC TNTC H (0-3) per hpf Ur Squamous Epith Cells Many H (None-Few) per lpf Urine Bacteria Many H (None-Few) per hpf Hyaline Casts None Seen (None-Few) per lpf Ur Culture Indicated? NO. (NO) 08/07/17 08/07/17 08/08/17 Range/Units 23:07 23:07 00:16 WBC (4.3-11.1) K/mcL RBC (3.82-4.97) M/mcL Hgb (11.5-15.4) g/dL Hct (35.3-44.9) % MCV (83.0-100.0) fL MCH (28.0-33.3) pg MCHC (31.6-35.5) g/dL RDW (11.5-14.5) % Plt Count (140-400) K/mcL MPV (9.4-12.4) fL Immature Gran % (0-4) % Seg Neutrophils % % Lymphocytes % % Monocytes % % Eosinophils % % Basophils % % Neutrophils # (1.6-8.9) K/mcL Lymphocytes # (0.6-4.6) K/mcL Monocytes # (0.0-1.3) K/mcL Eosinophils # (0.0-0.6) K/mcL Basophils # (0.0-0.2) K/mcL Sodium (136-145) mEq/L Potassium (3.5-5.1) mEq/L Chloride (98-107) mEq/L Carbon Dioxide (23-29) mEq/L BUN (8-23) mg/dL Creatinine (0.60-1.20) mg/dL Est GFR ( Amer) (> 60) Est GFR (Non-Af Amer) (> 60) BUN/Creatinine Ratio (6-26) Glucose (70-105) mg/dL Calculated Osmolality (280-300) Calcium (8.6-10.3) mg/dL Magnesium (1.6-2.6) mg/dL Total Bilirubin (0.3-1.0) mg/dL AST (13-39) Units/L ALT (7-52) Units/L Alkaline Phosphatase (34-104) Units/L Troponin I 0.07 H* (< 0.04) ng/mL B-Natriuretic Peptide 86 (Less than 100) pg/mL Serum Total Protein (6.4-8.9) g/dL Albumin (3.5-5.7) g/dL Globulin (2.4-3.5) g/dL Albumin/Globulin Ratio (1.1-2.2) Urine Color Yellow (Yellow) Urine Clarity Turbid A (Clear) Urine pH 5.5 (5.0-8.0) pH Units Ur Specific [place] 1.021 (1.010-1.025) Urine Protein 100 H (Neg-Trace) mg/dL Urine Glucose (UA) Normal (Normal) mg/dL Urine Ketones Negative (Negative) mg/dL Urine Blood Large H (Negative) Urine Nitrite Negative (Negative) Urine Bilirubin Negative (Negative) Urine Urobilinogen Normal (Normal) mg/dL Ur Leukocyte Esterase Large H (Negative) Urine Microscopic RBC TNTC H (0-3) per hpf Urine Microscopic WBC TNTC H (0-3) per hpf Ur Squamous Epith Cells Many H (None-Few) per lpf Urine Bacteria Many H (None-Few) per hpf Hyaline Casts None Seen (None-Few) per lpf Ur Culture Indicated? NO. (NO) - Radiology Data Radiology results reviewed: Yes I reviewed the patient's radiology results. - EKG Data EKG attestation: Yes I reviewed and interpreted this EKG. EKG results narrative: Sinus rhythm, nonspecific ST and T wave abnormalities, ventricular rate 92, NV interval 157, QRS duration 100, QT/qtc 366/were 16 Attestation Statement - Attestation Attestation: I, Gamal Fountain MD, personally evaluated this patient and discussed their management with the midlevel provicer, [facility]. I reviewed the midlevel provider 's note and agree with the documented findings, medical decision making, and plan of care. 62-year-old female with a history of multiple prior strokes and right sided hemiparesis presents to the emergency department complaining of generalized weakness with chills and not feeling well for more than a week prior to arrival. She also complains of diarrhea. No vomiting. She denies any chest pain or shortness of breath. On examination patient is a well-developed well-nourished female in no acute distress. She is alert and oriented 3. There is no cyanosis or diaphoresis. Chronic right-sided hemiplegia. Chest is nontender to palpation. Breath sounds are clear and equal bilaterally. Heart regular rate and rhythm. Abdomen is soft and nontender with normal bowel sounds. 1+ pedal edema. Labs reviewed. Troponin 0.07. Magnesium 1.0. UTI noted. Chest x-ray shows mild bibasilar airspace disease, atelectasis versus pneumonia. EKG shows a normal sinus rhythm with a heart rate of 92. No ectopy or arrhythmia. No acute ischemic changes. No significant change from prior EKG dated 01/29/2017. The hospitalist, Dr. Cho, was consulted and accepted admission of the patient.
[2017-08-08 00:32] LABS: Bilirubin,Urine Negative (Negative); Blood,Urine Large (Negative); Clarity,Urine Turbid (Clear); Color,Urine Yellow (Yellow); Glucose,Urine (UA) Normal (Normal); Ketones,Urine Negative (Negative); Leukocyte Esterase,Urine Large (Negative); Nitrite,Urine Negative (Negative); PH,Urine 5.5 pH Units (5.0-8.0); Protein,Urine 100 mg/dL (Neg-Trace); Specific Gravity,Urine 1.021 (1.010-1.025); Urobilinogen,Urine Normal (Normal)
[2017-08-08 00:34] LABS: Bacteria,Urine Many per hpf (None-Few); Hyaline Casts,Urine None Seen per lpf (None-Few); RBC,Urine TNTC per hpf (0-3); Squamous Epithelial Cell,Urine Many per lpf (None-Few); WBC,Urine TNTC per hpf (0-3)
[2017-08-08] MEDS ORDERED: Ibuprofen 600 MG TABLET PO ONE (00:50)
[2017-08-08] MEDS ORDERED: Magnesium Sulfate 2 GM in D5% in Water 100 ML IVPB ONE (01:20)
[2017-08-08] MEDS ORDERED: cefTRIAXone 1,000 MG in Water for inj. (sterile) 20 ML 10 ML IVP ONE (01:56)
[2017-08-08] MEDS ORDERED: 0.9 % Sodium Chloride 1,000 ML IVC ONE (01:56)
[2017-08-08] MEDS ORDERED: Naloxone 0.4 MG/ML INJ IVP PRN (04:35)
[2017-08-08] MEDS ORDERED: Ketorolac 15 MG/ML VIAL IVP PRN (04:39)
[2017-08-08] MEDS ORDERED: Dextrose Gel 15 GM/37.5 ML TUBE PO PRN ×2 (04:40)
[2017-08-08] MEDS ORDERED: *HR* Dextrose 50 % in Water (Syg) 50 ML SYRINGE IVP PRN (04:40)
[2017-08-08] MEDS ORDERED: D5% in Water 1,000 ML IVC PRN (04:40)
[2017-08-08] MEDS ORDERED: *HR* HYDROcodone/Acet 5/325 mg TABLET PO PRN (04:44)
[2017-08-08] MEDS ORDERED: Acetaminophen 325 MG TABLET PO PRN ×2 (04:47→12:33)
[2017-08-08] MEDS ORDERED: Ipratropium/Albuterol Neb 3 ML IH PRN ×2 (04:52→12:29)
[2017-08-08] MEDS ORDERED: Vancomycin 1,250 MG in D5% in Water 250 ML IVPB SCH ×2 (05:00)
--- NOTE | 2017-08-08 05:02 | Internal Med History&Physical ---
Date of Encounter: 08/08/17 Time of Encounter: 04:00 Assessment and Plan (1) Diarrhea Current visit: Yes Status: Acute Patient has a chronic diarrhea. Etiology is undetermined. Will place GI panel. Correct electrolyte abnormality Qualifiers: Diarrhea type: unspecified type Qualified Code(s): R19.7 - Diarrhea, unspecified (2) Elevated troponin Current visit: Yes Status: Acute Patient denies chest pain or increased shortness of breath. EKG unremarkable. Patient has history of elevated troponin previously. - We will check 3 sets of troponin - Continuous cardiac monitoring (3) Hypomagnesemia Current visit: Yes Status: Acute Patient had magnesium supplemented in emergency room. Follow up magnesium level (4) UTI (urinary tract infection) Current visit: Yes Status: Acute Placed patient on Rocephin IV. Follow-up urine culture Qualifiers: Urinary tract infection type: acute cystitis Hematuria presence: without hematuria Qualified Code(s): N30.00 - Acute cystitis without hematuria (5) Weakness generalized Current visit: Yes Status: Acute Etiology is undetermined. Probably due to uncontrolled diabetes, chronic diarrhea, hypomagnesemia. Will treat underlying disease and consult PTOT (6) COPD (chronic obstructive pulmonary disease) Current visit: No Status: Acute Patient is at her baseline. No signs of exacerbation. Continue oxygen and DuoNeb treatment. Continue home medication after medication verification Qualifiers: COPD type: COPD with acute exacerbation Qualified Code(s): J44.1 - Chronic obstructive pulmonary disease with (acute) exacerbation (7) Cellulitis Current visit: No Status: Acute Patient has right lower leg skin redness, warmth, and tenderness. Consider cellulitis. - Place patient on Vanco and Rocephin - Closely monitor skin redness changes - Order doppler venous of RLE to rule out DVT Patient is at high risk because she is on vancomycin, need close monitoring Qualifiers: Site of cellulitis: extremity Site of cellulitis of extremity: lower extremity Laterality: right Qualified Code(s): L03.115 - Cellulitis of right lower limb (8) Chronic indwelling Chandra catheter Current visit: No Status: Acute (9) DVT prophylaxis Current visit: No Status: Acute Heparin subcutaneously (10) Diabetes Current visit: No Status: Acute Continue basal and the sliding scale insulin. Adjust dose to get better glucose control Qualifiers: Diabetes mellitus type: type 2 Diabetes mellitus complication status: without complication Diabetes mellitus nursing home insulin use: without terminal block assembler use Qualified Code(s): E11.9 - Type 2 diabetes mellitus without complications (11) History of CVA (cerebrovascular accident) Current visit: No Status: Acute Continue antiplatelet for secondary prevention. Patient said she has no problem with swallowing. (12) CAD (coronary artery disease) Current visit: No Status: Chronic No chest pain. Has a mild elevated troponin. Will check serial troponin. Continue home medication after medication verification Qualifiers: Coronary Disease-Associated Artery/Lesion type: [place] artery [place] vs. transplanted heart: [place] heart Associated angina: without angina Qualified Code(s): I25.10 - Atherosclerotic heart disease of [place] coronary artery without angina pectoris (13) HTN (hypertension) Current visit: No Status: Chronic Continue home medications Qualifiers: Hypertension type: essential hypertension Qualified Code(s): I10 - Essential (primary) hypertension (14) Tobacco abuse Current visit: No Status: Chronic Patient currently smoke 3 packs a day. Smoking cessation education has been done. Patient was placed on nicotine patch Internal Medicine - H&P: HPI Chief complaint: weakness Admitted From: Home Plans for Post Hospital Care: Home History of present illness: Ms. Lauren is a 62 year old female with history of COPD, CHF, diabetes, history of CVA with right side residual hemiparasis, chronic Chandra catheter use , hypertension, CAD S/P CABG, current tobacco abuse, presented to ER for weakness. Patient said her PCP called her to emergency room because of low magnesium. Patient also complaining of more weakness than normal recently. She is not sure if she has fever. She denies a runny nose, sore throat, increased shortness of breath, or chest pain. She denies abdominal pain, or nausea. Patient had chronic cough because of COPD. Patient has a chronic diarrhea for about 1 months. Patient uses home oxygen at 3 L/min. In emergency room, she was found magnesium 1.0. Patient also has UTI. Patient was admitted for further management. Past Med Surg Social Fam HX - Past Medical History Medical history: cancer, CHF, COPD, coronary artery disease, CVA, DVT, diabetes , hyperlipidemia, hypertension, myocardial infarction Psychiatric history: depression - Past Surgical History Surgical History: breast surgery, cancer surgery, carotid endarterectomy, coronary bypass (CABG), LE vascular intervention - Social History Smoking Status: Current every day smoker Packs per day: 3 Smokeless Tobacco Status: No Alcohol use: none Drug use: none - Family History Mother Living Status: Hx Family Cancer: Yes (carcinoma kidney(s)) Hx Family Endocrine Disorder: Yes (DM) Internal Medicine - H&P: Meds Aspirin [Lo-Dose Aspirin EC] 81 mg PO DAILY 01/28/17 [History] Beclomethasone Diprop 40mcg [QVAR 40 mcg] 1 puff IH BID 01/28/17 [History] Cholecalciferol (Vitamin D3) [Vitamin D3] 1,000 unit PO DAILY 01/28/17 [History] Clopidogrel [Plavix] 75 mg PO DAILY 01/28/17 [History] Cyclobenzaprine [Flexeril] 10 mg PO TID PRN 01/28/17 [History] Fenofibrate Nanocrystallized [Triglide] 160 mg PO DAILY 01/28/17 [History] Furosemide [Lasix] 40 mg PO DAILY 01/28/17 [History] Gabapentin [Neurontin] 100 mg PO TID 01/28/17 [History] Guaifenesin [Mucinex] 600 mg PO BID PRN 01/28/17 [History] Insulin ASPART [Novolog Flexpen] 7 unit SQ TIDAC MDD plus sliding sale 01/28/17 [History] Insulin Glargine,Hum.rec.anlog [Lantus Solostar] 25 unit SQ HS 01/28/17 [History ] Ipratropium/Albuterol Neb [Duoneb] 3 ml IH Q6HR PRN 01/28/17 [History] Lansoprazole [Prevacid] 30 mg PO DAILY 01/28/17 [History] Lisinopril [Zestril] 20 mg PO DAILY 01/28/17 [History] Magnesium Oxide [Magnesium] 400 mg PO DAILY 01/28/17 [History] Metformin HCl [Glucophage] 1,000 mg PO BID 01/28/17 [History] Metoprolol [Lopressor] 100 mg PO BID 01/28/17 [History] Multivitamin [Multi-Day Vitamins] 1 tab PO DAILY 01/28/17 [History] [place]-3/Dha/Epa/Fish Oil [Fish Oil 1,000 mg Softgel] 2,000 mg PO BID 01/28/17 [ History] Oxycodone HCl/Acetaminophen [Percocet 7.5-325 mg Tablet] 1 tab PO Q6H PRN [History] Petrolatum,White [Aloe [place]] 1 appl TP TID 01/28/17 [History] Potassium Chloride [Klor-Con 10] 20 meq PO DAILY 01/28/17 [History] Ropinirole HCl [Requip] 0.25 mg PO HS 01/28/17 [History] Rosuvastatin [Crestor] 20 mg PO HS 01/28/17 [History] Sertraline [Zoloft] 50 mg PO DAILY 01/28/17 [History] Theophylline Anhydrous [Mateo-24] 200 mg PO DAILY 01/28/17 [History] Tiotropium [Spiriva] 1 cap IH DAILY 01/28/17 [History] amLODIPine [Norvasc] 5 mg PO DAILY 01/28/17 [History] traZODone [TraZODone] 25 - 50 mg PO HS 01/28/17 [History] Acetaminophen [Tylenol] 650 mg PO Q6HR PRN tab 02/02/17 [Rx] Docusate [Colace] 100 mg PO DAILY 02/02/17 [Rx] Enoxaparin [Lovenox] 40 mg SQ 0600 02/02/17 [Rx] HYDROcodone/Acet 5/325 mg [[place] 5-325 mg] 1 tab PO Q4H PRN #7 tab 02/02/17 [Rx] Ipratropium/Albuterol Neb [Duoneb] 3 ml IH [id number] #30 inh 02/02/17 [Rx] Nebulizer Accessories [A.i.r.s. Nebulizer] 1 each Q4H #1 kit 02/02/17 [Rx] Nebulizer/Compressor [[place] Nebulizer] 1 each MC Q4H #1 each 02/02/17 [ Rx] Nicotine Patch [Nicoderm] 21 mg TD DAILY #30 patch 02/02/17 [Rx] Omeprazole [PriLOSEC] 20 mg PO DAILY@0630 02/02/17 [Rx] Patient Taking Own Medication 0 each PO BID each 02/02/17 [Rx] Vancomycin/0.9 % Sod Chloride [Vanco 1.25 gm/250 ml-0.9% NaCl] 1.25 gm IV BID # 22 plast..bag 02/02/17 [Rx] levoFLOXacin [Levaquin] 500 mg PO 1800 #5 tab 02/02/17 [Rx] predniSONE [PredniSONE] 40 mg PO DAILY #3 tablet 02/02/17 [Rx] 3 Allergy/AdvReac Type Severity Reaction Status Date / Time Iodinated Contrast- Oral and Allergy Anaphylaxis Verified 11/28/16 17:51 IV Dye [Iodinated Contrast Media - Oral and] All Systems PM: A 10-system review of systems was performed and is negative for pertinent findings except as documented above in the HPI. - Constitutional Vitals: Temp Pulse Resp BP Pulse Ox 98.8 F 93 18 135/74 92 08/07/17 22:08 08/08/17 02:30 08/08/17 02:30 08/08/17 02:30 08/08/17 02:30 General appearance: Present: A&O X 3, no acute distress, answers questions appropriately - Head Head exam: Present: atraumatic, normocephalic - Eye Eye exam: Present: PERRL, conjuntiva pink, sclera anicteric Pupils: Present: PERRL - Neck Neck exam general surgery: Present: supple, trachea midline. Absent: lymphadenopathy - Respiratory Respiratory exam: Present: CTAB, wheezes (Scattered wheezes bilaterally, left > right). Absent: accessory muscle use, rales, rhonchi - Cardiovascular Cardiovascular exam: Present: RRR, +S1, +S2. Absent: diastolic murmur, gallop, rubs, systolic murmur - GI/Abdominal GI/Abdominal exam: Present: normal bowel sounds, soft, no peritoneal signs. Absent: distended, tenderness - Extremities Exam Extremities exam: Present: warm, radial pulses palpable and symmetrical. Absent : calf tenderness, cyanotic, pedal edema Additional comments: Right lower leg skin redness/warmth/tenderness. Right leg is thicker than left leg - Neurological Exam Neurological exam: Present: CN II-XII intact, motor sensory deficit (Motor 1/5 on both Rt UE and LE), oriented X3, pronater drift. Absent: facial droop, speech deficit - Skin Skin exam: Present: dry, intact Internal Med - H&P Results - Labs CBC & Chem 7: 08/07/17 23:07 08/07/17 23:07 - EKG Data -: EKG Interpreted by Myself EKG shows normal: sinus rhythm Rate: normal
[2017-08-08] MEDS: *HR* Heparin 5,000 UNIT/ML VIAL SQ SCH ×2 (05:30→17:06)
[2017-08-08] MEDS ORDERED: Insulin LISPRO 300 UNITS/3 ML VIAL SQ SCH ×2 (07:30→21:00)
[2017-08-08] MEDS: Nicotine 21 MG PATCH.TD24 TD SCH (08:12)
[2017-08-08] MEDS: Metoprolol 100 MG TABLET PO SCH ×2 (08:13→20:09)
[2017-08-08] MEDS: amLODIPine 5 MG TABLET PO SCH (08:13)
[2017-08-08] MEDS: Lisinopril 20 MG TABLET PO SCH (08:13)
[2017-08-08] MEDS: Aspirin Enteric Coated 81 MG Tablet PO SCH (08:13)
[2017-08-08] MEDS ORDERED: Aminoglycoside Consult 1 EACH MC ONE (08:26)
[2017-08-08] MEDS ORDERED: Ipratropium/Albuterol Neb 3 ML IH SCH (10:00)
[2017-08-08 10:10] LABS: BUN/Creatinine Ratio 11 (6-26); Blood Urea Nitrogen 7 mg/dL (8-23); Calcium 8.3 mg/dL (8.6-10.3); Carbon Dioxide 32 mEq/L (23-29); Chloride 102 mEq/L (98-107); Glucose 182 mg/dL (70-105); Magnesium 1.4 mg/dL (1.6-2.6); Osmolality,Calculated 289 (280-300); Phosphorous 3.7 mg/dL (2.7-4.5); Potassium 3.3 mEq/L (3.5-5.1); Sodium 138 mEq/L (136-145); eGFR For African Americans > 60 (> 60); eGFR For Non-African Americans > 60 (> 60)
--- NOTE | 2017-08-08 12:33 | Event Note ---
Date of Encounter: 08/08/17 Time of Encounter: 12:06 Pt is a 62y/o female admitted for generalized weakness, UTI, electrolyte abnormality, and RLE cellulitis Pt clinically improving noted to have hypokalemia and hypomagnesemia. K and Mg supplemented continue empiric abx f/u urine culture resumed home meds awaiting PT/OT evaluation
--- NOTE | 2017-08-08 14:35 | Electrocardiograph Report ---
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
[2017-08-08] MEDS: Ipratropium/Albuterol Neb 3 ML IH SCH ×3 (16:29→23:55)
[2017-08-08] MEDS ORDERED: INSULIN ASPART 7 UNIT SQ SCH (16:30)
[2017-08-08] MEDS: Gabapentin 100 MG CAPSULE PO SCH ×2 (17:06→20:09)
[2017-08-08] MEDS: Vancomycin 1,000 MG in D5% in Water 250 ML IVPB SCH (17:07)
[2017-08-08] MEDS: Insulin LISPRO 300 UNITS/3 ML VIAL SQ SCH ×3 (17:08→20:10)
[2017-08-08] MEDS: rOPINIRole 0.25 MG TABLET PO SCH (20:09)
[2017-08-08] MEDS: Insulin DETEMIR 100 UNIT/ML X5UNITS SQ SCH (20:10)
[2017-08-08] MEDS: Beclomethasone 40mcg MDI IH SCH (20:20)
[2017-08-08] MEDS ORDERED: NON-FORMULARY MEDICATION 1 EACH EACH (Omega-3/Dha/Epa/Fish Oil [Fish Oil 1,000 Mg Softgel] PO SCH (21:00)
[2017-08-08] MEDS ORDERED: Insulin DETEMIR 100 UNIT/ML X5UNITS SQ SCH (21:00)
[2017-08-09] MEDS: Ipratropium/Albuterol Neb 3 ML IH SCH ×6 (03:55→23:20)
[2017-08-09] MEDS: Vancomycin 1,000 MG in D5% in Water 250 ML IVPB SCH (04:24)
[2017-08-09 05:25] LABS: Basophils % 0.4 %; Immature Granulocytes % 0.4 % (0-4); Mean Corpuscular Hemoglobin 23.8 pg (28.0-33.3)
[2017-08-09 05:26] LABS: Hematocrit 36.5 % (35.3-44.9); Hemoglobin 10.6 g/dL (11.5-15.4); Mean Platelet Volume 11.9 fL (9.4-12.4); Platelet Count 230 K/mcL (140-400); Red Blood Count 4.45 M/mcL (3.82-4.97); Red Cell Distribution Width 18.1 % (11.5-14.5); Segmented Neutrophils % 54.5 %
[2017-08-09 05:27] LABS: Eosinophils # 0.2 K/mcL (0.0-0.6); Eosinophils % 4.2 %; Lymphocytes # 1.9 K/mcL (0.6-4.6); Lymphocytes % 35.9 %; Monocytes # 0.2 K/mcL (0.0-1.3); Monocytes % 4.6 %; Neutrophils # 2.8 K/mcL (1.6-8.9)
[2017-08-09] MEDS: *HR* Heparin 5,000 UNIT/ML VIAL SQ SCH ×2 (05:31→16:46)
[2017-08-09 05:57] LABS: BUN/Creatinine Ratio 13 (6-26); Blood Urea Nitrogen 7 mg/dL (8-23); Calcium 8.6 mg/dL (8.6-10.3); Carbon Dioxide 30 mEq/L (23-29); Chloride 104 mEq/L (98-107); Glucose 153 mg/dL (70-105); Magnesium 1.6 mg/dL (1.6-2.6); Osmolality,Calculated 289 (280-300); Sodium 139 mEq/L (136-145); eGFR For African Americans > 60 (> 60); eGFR For Non-African Americans > 60 (> 60)
[2017-08-09 06:15] LABS: Anisocytosis 1+ (Not Present); Microcytosis Present (Not Present); Platelet Estimate Normal (Normal)
[2017-08-09] MEDS: Beclomethasone 40mcg MDI IH SCH ×2 (07:57→20:06)
[2017-08-09] MEDS ORDERED: cefTRIAXone 1,000 MG in Water for inj. (sterile) 10 ML IVP SCH (09:00)
[2017-08-09] MEDS ORDERED: Tiotropium 18 MCG inhalation IH SCH (09:00)
[2017-08-09] MEDS: Magnesium Oxide 400 MG TABLET PO SCH (09:41)
[2017-08-09] MEDS: amLODIPine 5 MG TABLET PO SCH (09:41)
[2017-08-09] MEDS: Cholecalciferol (D-3) 1,000 UNIT TABLET PO SCH (09:41)
[2017-08-09] MEDS: Fenofibrate 54 MG TABLET PO SCH (09:41)
[2017-08-09] MEDS: Multivit/Ca/Min/Fe/FA 1 TAB TABLET PO SCH (09:42)
[2017-08-09] MEDS: Lisinopril 20 MG TABLET PO SCH (09:42)
[2017-08-09] MEDS: Metoprolol 100 MG TABLET PO SCH ×2 (09:42→21:48)
[2017-08-09] MEDS: Aspirin Enteric Coated 81 MG Tablet PO SCH (09:42)
[2017-08-09] MEDS: Furosemide 40 MG TABLET PO SCH (09:43)
[2017-08-09] MEDS: Insulin LISPRO 300 UNITS/3 ML VIAL SQ SCH ×7 (09:44→22:04)
[2017-08-09] MEDS: Nicotine 21 MG PATCH.TD24 TD SCH (09:45)
[2017-08-09] MEDS: Gabapentin 100 MG CAPSULE PO SCH ×3 (09:45→21:48)
[2017-08-09] MEDS ORDERED: *HR* HYDROcodone/Acet 5/325 mg TABLET PO PRN (11:12)
--- NOTE | 2017-08-09 14:18 | Internal Med Progress Note ---
Date of Encounter: 08/09/17 Time of Encounter: 13:55 - Assessment and plan (1) UTI (urinary tract infection) Current Visit: Yes Status: Acute Assessment and plan: urine culture prelim positive for Gram negative Shaun will continue IV Ceftriaxone will switch to PO abx based on final urine culture results Qualifiers: Urinary tract infection type: acute cystitis Hematuria presence: without hematuria Qualified Code(s): N30.00 - Acute cystitis without hematuria (2) Cellulitis Current Visit: No Status: Acute Assessment and plan: clinically improving continue IV abx blood culture prelim reported no growth Qualifiers: Site of cellulitis: extremity Site of cellulitis of extremity: lower extremity Laterality: right Qualified Code(s): L03.115 - Cellulitis of right lower limb (3) Diarrhea Current Visit: Yes Status: Resolved Assessment and plan: resolved Qualifiers: Diarrhea type: unspecified type Qualified Code(s): R19.7 - Diarrhea, unspecified (4) Elevated troponin Current Visit: Yes Status: Chronic Assessment and plan: Likely demand ischemia in the setting of underlying infectious etiology pt has history of chronically elevated TNI and current levels have been below her baseline No chest pain or anginal symptoms reported (5) Weakness generalized Current Visit: Yes Status: Acute Assessment and plan: reports of improvement likely secondary to underlying UTI and cellulitis PT evaluation recommended return to prior living situation (6) COPD (chronic obstructive pulmonary disease) Current Visit: No Status: Chronic Assessment and plan: not in acute exacerbation continue home meds Qualifiers: COPD type: COPD with acute exacerbation Qualified Code(s): J44.1 - Chronic obstructive pulmonary disease with (acute) exacerbation (7) Chronic indwelling Rubio catheter Current Visit: No Status: Chronic Assessment and plan: pt reports of getting rubio changed once a month Scheduled for rubio change Aug 26 (8) DVT prophylaxis Current Visit: No Status: Acute Assessment and plan: Heparin SQ (9) Diabetes Current Visit: No Status: Chronic Assessment and plan: continue sliding scale insulin algorithm monitor FS and BG ADA diet Qualifiers: Diabetes mellitus type: type 2 Diabetes mellitus complication status: without complication Diabetes mellitus extermination inspector insulin use: without halfway use Qualified Code(s): E11.9 - Type 2 diabetes mellitus without complications (10) History of CVA (cerebrovascular accident) Current Visit: No Status: Chronic Assessment and plan: pt reports of having residual deficits and is wheelchair bound (11) CAD (coronary artery disease) Current Visit: No Status: Chronic Assessment and plan: no signs of angina present at this time continue home meds (ASA, Plavix, BB) Qualifiers: Coronary Disease-Associated Artery/Lesion type: [place] artery [place] vs. transplanted heart: [place] heart Associated angina: without angina Qualified Code(s): I25.10 - Atherosclerotic heart disease of [place] coronary artery without angina pectoris (12) HTN (hypertension) Current Visit: No Status: Chronic Assessment and plan: BP within acceptable range continue home meds Qualifiers: Hypertension type: essential hypertension Qualified Code(s): I10 - Essential (primary) hypertension - Subjective Interval history: Patient seen and examined at bedside. Resting in bed and reports of feeling better compared to previous day. Reports of complete resolution of diarrhea, is tolerating PO intake well. Reports of being wheelchair bound at baseline and states she has home health services to help her throughout the day. - Constitutional Vitals: Temp Pulse Resp BP Pulse Ox 97.5 F L 74 17 147/75 90 08/09/17 11:54 08/09/17 11:54 08/09/17 11:54 08/09/17 11:54 08/09/17 11:54 General appearance: Present: A&O X 3, no acute distress, answers questions appropriately - Head Head exam: Present: atraumatic, normocephalic - Eye Eye exam: Present: conjuntiva pink, sclera anicteric - Respiratory Respiratory exam: Present: CTAB. Absent: accessory muscle use, rales, rhonchi, wheezes - Cardiovascular Cardiovascular exam: Present: RRR, +S1, +S2. Absent: diastolic murmur, gallop, rubs, systolic murmur - GI/Abdominal GI/Abdominal exam: Present: normal bowel sounds, soft, no peritoneal signs. Absent: distended, tenderness - Additional comments: indwelling rubio cath - Extremities Exam Extremities exam: Present: warm, radial pulses palpable and symmetrical (Distal RLE erythema). Absent: calf tenderness - Neurological Exam Neurological exam: Present: alert, oriented X3 - Psychiatric Psychiatric exam: Present: normal affect, normal mood Internal Medicine: Result - Labs CBC & Chem 7: 08/09/17 04:52 08/09/17 04:52 Labs: Short CBC 08/09/17 Range/Units 04:52 WBC 5.2 (4.3-11.1) K/mcL Hgb 10.6 L D (11.5-15.4) g/dL Hct 36.5 (35.3-44.9) % Plt Count 230 (140-400) K/mcL Neutrophils # 2.8 (1.6-8.9) K/mcL [facility] 08/09/17 04:52 Sodium 139 Potassium 4.0 Chloride 104 Carbon Dioxide 30 H BUN 7 L Creatinine 0.55 L Glucose 153 H Calcium 8.6 Consult Discharge Plan - Plan Referrals: Kathy Acosta DO [Primary Care Provider] -
[2017-08-09] MEDS: rOPINIRole 0.25 MG TABLET PO SCH (21:48)
[2017-08-09] MEDS: Insulin DETEMIR 100 UNIT/ML X5UNITS SQ SCH (21:48)
[2017-08-10] MEDS: Ipratropium/Albuterol Neb 3 ML IH SCH ×3 (04:04→11:59)
[2017-08-10] MEDS: *HR* Heparin 5,000 UNIT/ML VIAL SQ SCH (05:52)
[2017-08-10] MEDS ORDERED: amLODIPine 5 MG TABLET PO SCH (08:07)
[2017-08-10] MEDS: Beclomethasone 40mcg MDI IH SCH (08:08)
[2017-08-10 08:40] LABS: Red Cell Distribution Width 17.7 % (11.5-14.5)
[2017-08-10 08:41] LABS: BUN/Creatinine Ratio 20 (6-26); Basophils % 0.2 %; Blood Urea Nitrogen 10 mg/dL (8-23); Calcium 8.6 mg/dL (8.6-10.3); Carbon Dioxide 32 mEq/L (23-29); Chloride 99 mEq/L (98-107); Eosinophils # 0.2 K/mcL (0.0-0.6); Eosinophils % 3.7 %; Glucose 231 mg/dL (70-105); Hematocrit 34.9 % (35.3-44.9); Hemoglobin 10.4 g/dL (11.5-15.4); Immature Granulocytes % 0.6 % (0-4); Lymphocytes # 1.8 K/mcL (0.6-4.6); Lymphocytes % 29.1 %; Magnesium 1.2 mg/dL (1.6-2.6); Mean Corpuscular HGB Conc 29.8 g/dL (31.6-35.5); Mean Corpuscular Hemoglobin 24.1 pg (28.0-33.3); Mean Platelet Volume 11.9 fL (9.4-12.4); Monocytes # 0.3 K/mcL (0.0-1.3); Monocytes % 5.5 %; Neutrophils # 3.8 K/mcL (1.6-8.9); Osmolality,Calculated 292 (280-300); Phosphorous 4.1 mg/dL (2.7-4.5); Platelet Count 237 K/mcL (140-400); Red Blood Count 4.31 M/mcL (3.82-4.97); Segmented Neutrophils % 60.9 %; Sodium 138 mEq/L (136-145); eGFR For African Americans > 60 (> 60); eGFR For Non-African Americans > 60 (> 60)
[2017-08-10] MEDS ORDERED: Doxycycline 100 MG in 0.9 % Sodium Chloride Mini Bag 100 ML IVPB SCH (09:00)
[2017-08-10] MEDS: Multivit/Ca/Min/Fe/FA 1 TAB TABLET PO SCH (09:47)
[2017-08-10] MEDS: Nicotine 21 MG PATCH.TD24 TD SCH (09:47)
[2017-08-10] MEDS: Magnesium Oxide 400 MG TABLET PO SCH (09:48)
[2017-08-10] MEDS: Gabapentin 100 MG CAPSULE PO SCH (09:48)
[2017-08-10] MEDS: Lisinopril 20 MG TABLET PO SCH (09:49)
[2017-08-10] MEDS: Metoprolol 100 MG TABLET PO SCH (09:49)
[2017-08-10] MEDS: Aspirin Enteric Coated 81 MG Tablet PO SCH (09:49)
[2017-08-10] MEDS: Fenofibrate 54 MG TABLET PO SCH (09:49)
[2017-08-10] MEDS: Cholecalciferol (D-3) 1,000 UNIT TABLET PO SCH (09:50)
[2017-08-10] MEDS: Furosemide 40 MG TABLET PO SCH (09:50)
[2017-08-10] MEDS: Insulin LISPRO 300 UNITS/3 ML VIAL SQ SCH ×3 (09:53→12:10)
[2017-08-10 10:05] LABS: Anisocytosis 2+ (Not Present); Hypochromasia Present (Not Present); Microcytosis Present (Not Present); Platelet Estimate Normal (Normal)
[2017-08-10 10:24] VITALS: BP 169/69
[2017-08-10] MEDS ORDERED: Doxycycline 100 MG CAPSULE PO SCH (11:00)
[2017-08-10] MEDS ORDERED: Cefdinir 300 MG CAPSULE PO SCH (11:00)
--- NOTE | 2017-08-10 11:43 | Discharge Summary ---
Date of Encounter: 08/10/17 Time of Encounter: 11:05 - Discharge Diagnosis (1) UTI (urinary tract infection) Priority: Primary Status: Acute Qualifiers: Urinary tract infection type: acute cystitis Hematuria presence: without hematuria Qualified Code(s): N30.00 - Acute cystitis without hematuria (2) Cellulitis Priority: Primary Status: Acute Qualifiers: Site of cellulitis: extremity Site of cellulitis of extremity: lower extremity Laterality: right Qualified Code(s): L03.115 - Cellulitis of right lower limb (3) Diarrhea Priority: Secondary Status: Resolved Qualifiers: Diarrhea type: unspecified type Qualified Code(s): R19.7 - Diarrhea, unspecified (4) Elevated troponin Priority: Secondary Status: Chronic (5) Weakness generalized Priority: Secondary Status: Resolved (6) COPD (chronic obstructive pulmonary disease) Priority: Secondary Status: Chronic Qualifiers: COPD type: COPD with acute exacerbation Qualified Code(s): J44.1 - Chronic obstructive pulmonary disease with (acute) exacerbation (7) Chronic indwelling Rubio catheter Priority: Secondary Status: Chronic (8) DVT prophylaxis Priority: Secondary Status: Acute (9) Diabetes Priority: Secondary Status: Chronic Qualifiers: Diabetes mellitus type: type 2 Diabetes mellitus complication status: without complication Diabetes mellitus skilled nursing insulin use: without director long term care use Qualified Code(s): E11.9 - Type 2 diabetes mellitus without complications (10) History of CVA (cerebrovascular accident) Priority: Secondary Status: Chronic (11) CAD (coronary artery disease) Priority: Secondary Status: Chronic Qualifiers: Coronary Disease-Associated Artery/Lesion type: [place] artery [place] vs. transplanted heart: [place] heart Associated angina: without angina Qualified Code(s): I25.10 - Atherosclerotic heart disease of [place] coronary artery without angina pectoris (12) HTN (hypertension) Priority: Secondary Status: Chronic Qualifiers: Hypertension type: essential hypertension Qualified Code(s): I10 - Essential (primary) hypertension - Discharge Medications Prescriptions: Cefdinir [Omnicef] 300 mg PO BID #15 capsule Doxycycline 100 mg PO BID #15 capsule Home Medications: Aspirin [Lo-Dose Aspirin EC] 81 mg PO DAILY 01/28/17 [History] Beclomethasone Diprop 40mcg [QVAR 40 mcg] 1 puff IH BID 01/28/17 [History] Cholecalciferol (Vitamin D3) [Vitamin D3] 1,000 unit PO DAILY 01/28/17 [History] Clopidogrel [Plavix] 75 mg PO DAILY 01/28/17 [History] Cyclobenzaprine [Flexeril] 10 mg PO TID PRN 01/28/17 [History] Fenofibrate Nanocrystallized [Triglide] 160 mg PO DAILY 01/28/17 [History] Furosemide [Lasix] 40 mg PO DAILY 01/28/17 [History] Gabapentin [Neurontin] 100 mg PO TID 01/28/17 [History] Guaifenesin [Mucinex] 600 mg PO BID PRN 01/28/17 [History] Insulin ASPART [Novolog Flexpen] 7 unit SQ TIDAC MDD plus sliding sale 01/28/17 [History] Insulin Glargine,Hum.rec.anlog [Lantus Solostar] 25 unit SQ HS 01/28/17 [History ] Ipratropium/Albuterol Neb [Duoneb] 3 ml IH Q6HR PRN 01/28/17 [History] Lansoprazole [Prevacid] 30 mg PO DAILY 01/28/17 [History] Lisinopril [Zestril] 20 mg PO DAILY 01/28/17 [History] Magnesium Oxide [Magnesium] 400 mg PO DAILY 01/28/17 [History] Metformin HCl [Glucophage] 1,000 mg PO BID 01/28/17 [History] Metoprolol [Lopressor] 100 mg PO BID 01/28/17 [History] Multivitamin [Multi-Day Vitamins] 1 tab PO DAILY 01/28/17 [History] [place]-3/Dha/Epa/Fish Oil [Fish Oil 1,000 mg Softgel] 2,000 mg PO BID 01/28/17 [ History] Petrolatum,White [Aloe [place]] 1 appl TP TID 01/28/17 [History] Potassium Chloride [Klor-Con 10] 20 meq PO DAILY 01/28/17 [History] Ropinirole HCl [Requip] 0.25 mg PO HS 01/28/17 [History] Rosuvastatin [Crestor] 20 mg PO HS 01/28/17 [History] Sertraline [Zoloft] 50 mg PO DAILY 01/28/17 [History] Theophylline Anhydrous [Mateo-24] 200 mg PO DAILY 01/28/17 [History] Tiotropium [Spiriva] 1 cap IH DAILY 01/28/17 [History] amLODIPine [Norvasc] 5 mg PO DAILY 01/28/17 [History] traZODone [TraZODone] 25 - 50 mg PO HS 01/28/17 [History] Acetaminophen [Tylenol] 650 mg PO Q6HR PRN tab 02/02/17 [Rx] HYDROcodone/Acet 5/325 mg [[place] 5-325 mg] 1 tab PO Q4H PRN #7 tab 02/02/17 [Rx] Ipratropium/Albuterol Neb [Duoneb] 3 ml IH [id number] #30 inh 02/02/17 [Rx] Nicotine Patch [Nicoderm] 21 mg TD DAILY #30 patch 02/02/17 [Rx] Omeprazole [PriLOSEC] 20 mg PO DAILY@0630 02/02/17 [Rx] Cefdinir [Omnicef] 300 mg PO BID #15 capsule 08/10/17 [Rx] Doxycycline 100 mg PO BID #15 capsule 08/10/17 [Rx] Allergies/Adverse Reactions: 3 Allergy/AdvReac Type Severity Reaction Status Date / Time Iodinated Contrast- Oral and Allergy Anaphylaxis Verified 11/28/16 17:51 IV Dye [Iodinated Contrast Media - Oral and] Date of admission: 08/08/17 19:01 Primary care physician: Kathy Acosta DO Discharging clinician: Agnes Stanley Anticipated date of discharge: 08/10/17 - Patient Status Disposition: Home Health Service Condition: Good Functional capacity at discharge: wheelchair bound Overall status at discharge: patient is back to baseline - Discharge Instructions Follow Up With: Kathy Acosta DO [Primary Care Provider] - 08/16/17 10:00 am (Dont forget the clinic has moved by [facility] now.) Additional Instructions: Please follow up with your primary care physician within five days after your discharge from the hospital. Please continue with oral antibiotics (Doxycycline and Omnicef) as prescribed for seven more days. Resume all other home medications as prescribed by your primary care physician. - Diet and Activity Activity: increase activity as tolerated, wear oxygen at all times, wear oxygen at night Diet: diabetic diet, low fat, low cholesterol, low salt diet Hospital course: Ms. Lauren is a 62 year old female with PMH of COPD on LTOT, CHF, DM, hx of CVA, wheelchair bound, chronic indwelling rubio catheter, HTN who was admitted for UTI and RLE cellulitis. Pt was started on broad spectrum IV abx to which she responded appropriately. Her initial weakness improved with treatment of her underlying infection. She was evaluated by physical therapy and no additional services other than continuation of her home health was recommended. Her abx were adjusted as per her urine culture results. At this time she is hemodynamically stable and will be discharged to home with home health services. Pt demonstrates understanding of her diagnosis and agree with the discharge care and plan. - Time Spent with Patient Total time spent providing and/or coordinating discharge services: Less than 30 minutes - Constitutional Vitals: Temp Pulse Resp BP Pulse Ox 97.4 F L 82 20 169/69 94 08/10/17 10:22 08/10/17 10:22 08/10/17 10:22 08/10/17 10:22 08/10/17 10:22 General appearance: Present: A&O X 3, no acute distress, answers questions appropriately - Head Head exam: Present: atraumatic, normocephalic - Eye Eye exam: Present: conjuntiva pink, sclera anicteric - Respiratory Respiratory exam: Present: CTAB. Absent: respiratory distress, wheezes - Cardiovascular Cardiovascular exam: Present: RRR, +S1, +S2. Absent: diastolic murmur, gallop, rubs, systolic murmur - GI/Abdominal GI/Abdominal exam: Present: normal bowel sounds, soft, no peritoneal signs. Absent: distended, tenderness - Extremities Exam Extremities exam: Present: warm, radial pulses palpable and symmetrical (Distal RLE erythema-improved from previous day). Absent: calf tenderness - Neurological Exam Neurological exam: Present: alert, oriented X3 - Psychiatric Psychiatric exam: Present: normal affect, normal mood
--- NOTE | 2017-08-10 11:49 | Physician Discharge Referral ---
Home Health/Hosp Referral Info Transfer to: Home Health Provider in Charge Post Discharge: PCP - Diagnosis (1) UTI (urinary tract infection) Priority: Primary Status: Acute (2) Cellulitis Priority: Primary Status: Acute (3) Diarrhea Priority: Secondary Status: Resolved (4) Elevated troponin Priority: Secondary Status: Chronic (5) Weakness generalized Priority: Secondary Status: Resolved (6) COPD (chronic obstructive pulmonary disease) Priority: Secondary Status: Chronic (7) Chronic indwelling Chandra catheter Priority: Secondary Status: Chronic (8) DVT prophylaxis Priority: Secondary Status: Acute (9) Diabetes Priority: Secondary Status: Chronic (10) History of CVA (cerebrovascular accident) Priority: Secondary Status: Chronic (11) CAD (coronary artery disease) Priority: Secondary Status: Chronic (12) HTN (hypertension) Priority: Secondary Status: Chronic - Respiratory Orders Smoking Cessation: Smoking cessation has been advised. For more information, call the [place] Tobacco Quit Line at 9-883-HUGG-NOW. - Services Needed Following services are medically necessary services: Nursing, Home Health Aide, Physical Therapy, Occupational Therapy - Transfer Medications Prescriptions: Cefdinir [Omnicef] 300 mg PO BID #15 capsule Doxycycline 100 mg PO BID #15 capsule Home Medications: Aspirin [Lo-Dose Aspirin EC] 81 mg PO DAILY 01/28/17 [History] Beclomethasone Diprop 40mcg [QVAR 40 mcg] 1 puff IH BID 01/28/17 [History] Cholecalciferol (Vitamin D3) [Vitamin D3] 1,000 unit PO DAILY 01/28/17 [History] Clopidogrel [Plavix] 75 mg PO DAILY 01/28/17 [History] Cyclobenzaprine [Flexeril] 10 mg PO TID PRN 01/28/17 [History] Fenofibrate Nanocrystallized [Triglide] 160 mg PO DAILY 01/28/17 [History] Furosemide [Lasix] 40 mg PO DAILY 01/28/17 [History] Gabapentin [Neurontin] 100 mg PO TID 01/28/17 [History] Guaifenesin [Mucinex] 600 mg PO BID PRN 01/28/17 [History] Insulin ASPART [Novolog Flexpen] 7 unit SQ TIDAC MDD plus sliding sale 01/28/17 [History] Insulin Glargine,Hum.rec.anlog [Lantus Solostar] 25 unit SQ HS 01/28/17 [History ] Ipratropium/Albuterol Neb [Duoneb] 3 ml IH Q6HR PRN 01/28/17 [History] Lansoprazole [Prevacid] 30 mg PO DAILY 01/28/17 [History] Lisinopril [Zestril] 20 mg PO DAILY 01/28/17 [History] Magnesium Oxide [Magnesium] 400 mg PO DAILY 01/28/17 [History] Metformin HCl [Glucophage] 1,000 mg PO BID 01/28/17 [History] Metoprolol [Lopressor] 100 mg PO BID 01/28/17 [History] Multivitamin [Multi-Day Vitamins] 1 tab PO DAILY 01/28/17 [History] [place]-3/Dha/Epa/Fish Oil [Fish Oil 1,000 mg Softgel] 2,000 mg PO BID 01/28/17 [ History] Petrolatum,White [Aloe [place]] 1 appl TP TID 01/28/17 [History] Potassium Chloride [Klor-Con 10] 20 meq PO DAILY 01/28/17 [History] Ropinirole HCl [Requip] 0.25 mg PO HS 01/28/17 [History] Rosuvastatin [Crestor] 20 mg PO HS 01/28/17 [History] Sertraline [Zoloft] 50 mg PO DAILY 01/28/17 [History] Theophylline Anhydrous [Mateo-24] 200 mg PO DAILY 01/28/17 [History] Tiotropium [Spiriva] 1 cap IH DAILY 01/28/17 [History] amLODIPine [Norvasc] 5 mg PO DAILY 01/28/17 [History] traZODone [TraZODone] 25 - 50 mg PO HS 01/28/17 [History] Acetaminophen [Tylenol] 650 mg PO Q6HR PRN tab 02/02/17 [Rx] HYDROcodone/Acet 5/325 mg [[place] 5-325 mg] 1 tab PO Q4H PRN #7 tab 02/02/17 [Rx] Ipratropium/Albuterol Neb [Duoneb] 3 ml IH [id number] #30 inh 02/02/17 [Rx] Nicotine Patch [Nicoderm] 21 mg TD DAILY #30 patch 02/02/17 [Rx] Omeprazole [PriLOSEC] 20 mg PO DAILY@0630 02/02/17 [Rx] Cefdinir [Omnicef] 300 mg PO BID #15 capsule 08/10/17 [Rx] Doxycycline 100 mg PO BID #15 capsule 08/10/17 [Rx] Allergies/Adverse Reactions: 3 Allergy/AdvReac Type Severity Reaction Status Date / Time Iodinated Contrast- Oral and Allergy Anaphylaxis Verified 11/28/16 17:51 IV Dye [Iodinated Contrast Media - Oral and] Certification: Further, I certify that my clinical findings support that this patient is homebound (i.e. absences from home require considerable and taxing effort and are for medical reasons or muslim services or infrequently or short duration when for other reasons) because: Homebound Reason: Patient requires assistance of a person or device to safely leave home Attestation: My signature below is to certify that this patient is under my care and that I, or nurse practitioner, or a physician's day care assistant working with me, has a face-to -face encounter with this patient.
== END 2017-08-10 13:49 | disposition home health service (06) | DRG 463 ==
LOC: EMEROO 22:03 → 2ANU 22:03
PROVIDERS: ADMIT Pediatrics; ATTEND Internal Medicine

== ENCOUNTER 2018-03-24 23:58 | Inpatient (IN) ==
[2018-03-25] MEDS ORDERED: Aspirin 81 MG TAB.CHEW PO ONE (00:27)
[2018-03-25 01:09] LABS: Eosinophils % 0.3 %; Immature Granulocytes % 0.6 % (0-4); Lymphocytes % 16.9 %; Monocytes % 3.9 %
[2018-03-25 01:11] LABS: Basophils # 0.1 K/mcL (0.0-0.2); Basophils % 0.3 %; Eosinophils # 0.1 K/mcL (0.0-0.6); Hematocrit 36.3 % (35.3-44.9); Hemoglobin 10.7 g/dL (11.5-15.4); Mean Corpuscular HGB Conc 29.5 g/dL (31.6-35.5); Mean Corpuscular Hemoglobin 22.3 pg (28.0-33.3); Mean Corpuscular Volume 75.8 fL (83.0-100.0); Mean Platelet Volume 11.9 fL (9.4-12.4); Platelet Count 499 K/mcL (140-400); Red Blood Count 4.79 M/mcL (3.82-4.97); Red Cell Distribution Width 20.9 % (11.5-14.5)
[2018-03-25 01:13] LABS: Monocytes # 1.1 K/mcL (0.0-1.3); Neutrophils # 22.9 K/mcL (1.6-8.9)
--- NOTE | 2018-03-25 01:24 | Emergency Department Note ---
Disposition Clinical Impression: Hypokalemia, Elevated troponin Chest pain Qualifiers: Chest pain type: unspecified Qualified Code(s): R07.9 - Chest pain, unspecified Leukocytosis Qualifiers: Leukocytosis type: unspecified Qualified Code(s): D72.829 - Elevated white blood cell count, unspecified Disposition: Admitted As Inpatient Condition: Fair Referrals: NONE,PCP [Primary Care Provider] - Chest Pain HPI - General Chief Complaint: ED Chest Pain Stated Complaint: chest pain Time Seen by Provider: 03/25/18 00:19 Source: EMS Limitations: other Vital Signs Reviewed: Yes Nursing Notes Reviewed: Yes - History of Present Illness HPI Narrative: 63yo female presents from home for evaluation of chest pain. Onset 4 hours prior to arrival. Located mid to lower sternum. Described as sharp stabbing. Non-radiating. Associated with dyspnea. Patient also notes a several day course of change in her chronic cough; now more frequent. Clear sputum production. With dyspnea worsened with light exertion. Confounding factor of 3 month history of nausea, vomiting, loose stools; evaluated on prior hospital admission with rehabilitation course at [facility]. PMH: CHF, CAD s/p OR with CABG. HTN, HLD. COPD on 3L NC baseline O2. ROS: Pos: as above: Neg: Fever, chills, palpitations, abdominal pain, dysuria Severity scale (1-10): 6 - Related Data Home Medications Medication Instructions Recorded Confirmed Aspirin [Lo-Dose Aspirin EC] 81 mg PO DAILY 01/28/17 08/08/17 Beclomethasone Diprop 40mcg [QVAR 1 puff IH BID 01/28/17 08/08/17 40 mcg] Cholecalciferol (Vitamin D3) 1,000 unit PO DAILY 01/28/17 08/08/17 [Vitamin D3] Clopidogrel [Plavix] 75 mg PO DAILY 01/28/17 08/08/17 Cyclobenzaprine [Flexeril] 10 mg PO TID PRN 01/28/17 08/08/17 Fenofibrate Nanocrystallized 160 mg PO DAILY 01/28/17 08/08/17 [Triglide] Furosemide [Lasix] 40 mg PO DAILY 01/28/17 08/08/17 Gabapentin [Neurontin] 100 mg PO TID 01/28/17 08/08/17 Guaifenesin [Mucinex] 600 mg PO BID PRN 01/28/17 08/08/17 Insulin ASPART [Novolog Flexpen] 7 unit SQ TIDAC MDD plus sliding 01/28/1708/08 sale Insulin Glargine,Hum.rec.anlog 25 unit SQ HS 01/28/17 08/08/17 [Lantus Solostar] Ipratropium/Albuterol Neb [Duoneb] 3 ml IH Q6HR PRN 01/28/17 08/08/17 Lansoprazole [Prevacid] 30 mg PO DAILY 01/28/17 08/08/17 Lisinopril [Zestril] 20 mg PO DAILY 01/28/17 08/08/17 Magnesium Oxide [Magnesium] 400 mg PO DAILY 01/28/17 08/08/17 Metformin HCl [Glucophage] 1,000 mg PO BID 01/28/17 08/08/17 Metoprolol [Lopressor] 100 mg PO BID 01/28/17 08/08/17 Multivitamin [Multi-Day Vitamins] 1 tab PO DAILY 01/28/17 08/08/17 [place]-3/Dha/Epa/Fish Oil [Fish Oil 2,000 mg PO BID 01/28/17 08/08/17 1,000 mg Softgel] Petrolatum,White [Aloe [place]] 1 appl TP TID 01/28/17 08/08/17 Potassium Chloride [Klor-Con 10] 20 meq PO DAILY 01/28/17 08/08/17 Ropinirole HCl [Requip] 0.25 mg PO HS 01/28/17 08/08/17 Rosuvastatin [Crestor] 20 mg PO HS 01/28/17 08/08/17 Sertraline [Zoloft] 50 mg PO DAILY 01/28/17 08/08/17 Theophylline Anhydrous [Mateo-24] 200 mg PO DAILY 01/28/17 08/08/17 Tiotropium [Spiriva] 1 cap IH DAILY 01/28/17 08/08/17 traZODone [TraZODone] 25 - 50 mg PO HS 01/28/17 08/08/17 Previous Rx's Medication Instructions Recorded Acetaminophen [Tylenol] 650 mg PO Q6HR PRN tab 02/02/17 HYDROcodone/Acet 5/325 mg [[place] 1 tab PO Q4H PRN #7 tab 02/02/17 5-325 mg] Ipratropium/Albuterol Neb [Duoneb] 3 ml IH [id number] #30 inh 02/02/17 Nicotine Patch [Nicoderm] 21 mg TD DAILY #30 patch 02/02/17 Omeprazole [PriLOSEC] 20 mg PO DAILY@0630 02/02/17 Cefdinir [Omnicef] 300 mg PO BID #15 capsule 08/10/17 Doxycycline 100 mg PO BID #15 capsule 08/10/17 amLODIPine [Norvasc] 10 mg PO DAILY #30 tablet 08/10/17 Lidocaine Patch [Lidoderm 5% patch] 1 each TP DAILY PRN #3 adh..patch 02/01/18 Allergies Allergy/AdvReac Type Severity Reaction Status Date / Time Iodinated Contrast- Oral and Allergy Anaphylaxis Verified 11/28/16 17:51 IV Dye [Iodinated Contrast Media - Oral and] All systems ED: reviewed and negative except as stated. Review of Systems: As Per HPI Chest Pain PMH - Past Medical History Medical history: Reports: cancer, CHF, COPD, coronary artery disease, CVA, DVT, diabetes, hyperlipidemia, hypertension, myocardial infarction Surgical history: Reports: breast surgery, cancer surgery, carotid endarterectomy, coronary bypass (CABG), LE vascular intervention Psychiatric history: Reports: anxiety, depression - Social History Smoking Status: Current every day smoker Alcohol use: Reports: none Drug use: Reports: none Physical Exam Vital Signs Reviewed General: Patient is alert, oriented, and in no acute distress. She appears older than stated age. Head: atraumatic, normocephalic Eye: normal appearance, PERRL, EOMI, no scleral icterus, no conjunctival injection ENT: mucous membranes moist, normal external ear exam Neck: normal inspection, trachea midline, full ROM Chest: normal inspection, symmetric chest rise Respiratory: Poor respiratory effort. Prolonged respiratory phase. Bilateral breath sounds are diminished however clear with no wheeze or rhonchi. Cardiovascular: Regular rate and rhythm. No clicks, rubs, gallops, or murmors. Normal heart sounds. Abdomen: Bowel sounds present normoactive x-4 quadrants. Abdomen is soft, nondistended, and nontender. No guarding or rebound. Musculoskeletal: Spontaneously moving all extremities. Skin: warm, dry, intact. Neuro: Alert and oriented x4. Sensation light touch intact. Psych: Patient's affect is appropriate for situation. - General Limitations: other General appearance: alert Course Course Narrative: EKG dated 03/25/2018 at 00:08 interpreted as sinus rhythm with rate of 72. MN 170, QTC 463. Normal axis. Slight ST elevation in leads V1 through V3 which is present on comparative EKG. No reciprocal ST depression. Compared to previous EKG dated 08/08/2017 showing no acute ischemic changes or comparison. Patient has markedly leukocytosis of 29.3. Chest x-ray is unremarkable. Urinalysis is concerning for UTI. Unforeseen, this was drawn on her old indwelling Chandra. Will replace a Chandra and repeat urinalysis. Patient has mild hypokalemia. Will provide 40 mEq by mouth KCl. EKG shows no acute ischemic changes. Troponin is slightly elevated at 0.16. Patient has history of prior troponin elevations greatest the 0.4 range. Chart check shows that she has history demand ischemia. Discussed the above the patient and her family at bedside. They are agreeable to admission for chest pain rule out ACS. Discussed the above with the admitting hospitalist, Dr. Colbert, who agrees to accept the patient for chest pain rule out ACS, mild hypokalemia, leukocytosis with urinalysis on clean Chandra pending. During her conversation, he requests blood cultures which I will order at this time. We will hold on antibiotics pending UA completion. Vital Signs Temperature 98.9 F 03/25/18 00:23 Pulse Rate 92 03/25/18 00:23 Respiratory Rate 20 03/25/18 00:23 Blood Pressure 116/59 03/25/18 00:23 O2 Sat by Pulse Oximetry 92 03/25/18 00:23 Temperature 98.9 F 03/25/18 00:23 Pulse Rate 68 03/25/18 04:05 Respiratory Rate 15 03/25/18 04:05 Blood Pressure 131/67 03/25/18 04:05 O2 Sat by Pulse Oximetry 95 03/25/18 04:05 Oxygen Delivery Oxygen Delivery Nasal Cannula Chest Pain - Lab Data Result diagrams: 03/25/18 00:59 03/25/18 00:59 Lab Results 03/25/18 03/25/18 03/25/18 Range/Units 00:59 00:59 00:59 WBC 29.3 H (4.3-11.1) K/mcL RBC 4.79 (3.82-4.97) M/mcL Hgb 10.7 L (11.5-15.4) g/dL Hct 36.3 (35.3-44.9) % MCV 75.8 L (83.0-100.0) fL MCH 22.3 L (28.0-33.3) pg MCHC 29.5 L (31.6-35.5) g/dL RDW 20.9 H (11.5-14.5) % Plt Count 499 H (140-400) K/mcL MPV 11.9 (9.4-12.4) fL Immature Gran % 0.6 (0-4) % Seg Neutrophils % 78.0 % Lymphocytes % 16.9 % Monocytes % 3.9 % Eosinophils % 0.3 % Basophils % 0.3 % Neutrophils # 22.9 H (1.6-8.9) K/mcL Lymphocytes # 5.0 H (0.6-4.6) K/mcL Monocytes # 1.1 (0.0-1.3) K/mcL Eosinophils # 0.1 (0.0-0.6) K/mcL Basophils # 0.1 (0.0-0.2) K/mcL Sodium 138 (136-145) mEq/L Potassium 2.9 L (3.5-5.1) mEq/L Chloride 103 (98-107) mEq/L Carbon Dioxide 23 (23-29) mEq/L BUN 21 (8-23) mg/dL Creatinine 1.00 (0.60-1.20) mg/dL Est GFR ( Amer) > 60 (> 60) Est GFR (Non-Af Amer) 56 L (> 60) BUN/Creatinine Ratio 21 (6-26) Glucose 149 H (70-105) mg/dL Calculated Osmolality 292 (280-300) Calcium 8.6 (8.6-10.3) mg/dL Troponin I 0.16 H* (< 0.04) ng/mL B-Natriuretic Peptide 185 H (Less than 100) pg/mL Urine Color (Yellow) Urine Clarity (Clear) Urine pH (5.0-8.0) pH Units Ur Specific [place] (1.010-1.025) Urine Protein (Neg-Trace) mg/dL Urine Glucose (UA) (Normal) mg/dL Urine Ketones (Negative) mg/dL Urine Blood (Negative) Urine Nitrite (Negative) Urine Bilirubin (Negative) Urine Urobilinogen (Normal) mg/dL Ur Leukocyte Esterase (Negative) Urine Microscopic RBC (0-3) per hpf Urine Microscopic WBC (0-3) per hpf Ur Squamous Epith Cells (None-Few) per lpf Ur Renal Epithelial Cell (None-Few) per hpf Urine Bacteria (None-Few) per hpf Hyaline Casts (None-Few) per lpf Urine Mucus (Few) Urine Yeast (None Seen) per hpf Ur Culture Indicated? (NO) 03/25/18 Range/Units 03:15 WBC (4.3-11.1) K/mcL RBC (3.82-4.97) M/mcL Hgb (11.5-15.4) g/dL Hct (35.3-44.9) % MCV (83.0-100.0) fL MCH (28.0-33.3) pg MCHC (31.6-35.5) g/dL RDW (11.5-14.5) % Plt Count (140-400) K/mcL MPV (9.4-12.4) fL Immature Gran % (0-4) % Seg Neutrophils % % Lymphocytes % % Monocytes % % Eosinophils % % Basophils % % Neutrophils # (1.6-8.9) K/mcL Lymphocytes # (0.6-4.6) K/mcL Monocytes # (0.0-1.3) K/mcL Eosinophils # (0.0-0.6) K/mcL Basophils # (0.0-0.2) K/mcL Sodium (136-145) mEq/L Potassium (3.5-5.1) mEq/L Chloride (98-107) mEq/L Carbon Dioxide (23-29) mEq/L BUN (8-23) mg/dL Creatinine (0.60-1.20) mg/dL Est GFR ( Amer) (> 60) Est GFR (Non-Af Amer) (> 60) BUN/Creatinine Ratio (6-26) Glucose (70-105) mg/dL Calculated Osmolality (280-300) Calcium (8.6-10.3) mg/dL Troponin I (< 0.04) ng/mL B-Natriuretic Peptide (Less than 100) pg/mL Urine Color Dark Yellow (Yellow) Urine Clarity Cloudy A (Clear) Urine pH 5.5 (5.0-8.0) pH Units Ur Specific [place] >= 1.030 H (1.010-1.025) Urine Protein 100 H (Neg-Trace) mg/dL Urine Glucose (UA) Normal (Normal) mg/dL Urine Ketones Negative (Negative) mg/dL Urine Blood Moderate H (Negative) Urine Nitrite Negative (Negative) Urine Bilirubin Small H (Negative) Urine Urobilinogen Normal (Normal) mg/dL Ur Leukocyte Esterase Large H (Negative) Urine Microscopic RBC Present (0-3) per hpf Urine Microscopic WBC TNTC H (0-3) per hpf Ur Squamous Epith Cells Present (None-Few) per lpf Ur Renal Epithelial Cell Present (None-Few) per hpf Urine Bacteria Present (None-Few) per hpf Hyaline Casts None Seen (None-Few) per lpf Urine Mucus Present (Few) Urine Yeast Present H (None Seen) per hpf Ur Culture Indicated? YES A (NO) Heart Score - Score History: Slightly Suspicious EKG: Non Specific repolarisation Disturbance Age: 45-65 Risk Factors: Equal/Greater than 3 risk factor or history of atherosclerotic disease Troponin: Less than normal limit HEART Score Total: 4
[2018-03-25 01:31] LABS: BUN/Creatinine Ratio 21 (6-26); Blood Urea Nitrogen 21 mg/dL (8-23); Calcium 8.6 mg/dL (8.6-10.3); Carbon Dioxide 23 mEq/L (23-29); Chloride 103 mEq/L (98-107); Glucose 149 mg/dL (70-105); Osmolality,Calculated 292 (280-300); Potassium 2.9 mEq/L (3.5-5.1); Sodium 138 mEq/L (136-145); eGFR For Non-African Americans 56 (> 60)
[2018-03-25 01:37] LABS: Troponin I 0.16 ng/mL (< 0.04)
[2018-03-25 03:29] LABS: Bilirubin,Urine Small (Negative); Blood,Urine Moderate (Negative); Clarity,Urine Cloudy (Clear); Glucose,Urine (UA) Normal (Normal); Ketones,Urine Negative (Negative); Leukocyte Esterase,Urine Large (Negative); Nitrite,Urine Negative (Negative); PH,Urine 5.5 pH Units (5.0-8.0); Protein,Urine 100 mg/dL (Neg-Trace); Specific Gravity,Urine >= 1.030 (1.010-1.025); Urobilinogen,Urine Normal (Normal)
[2018-03-25 03:35] LABS: Color,Urine Dark Yellow (Yellow)
[2018-03-25 03:39] LABS: Hyaline Casts,Urine None Seen per lpf (None-Few); RBC,Urine Present per hpf (0-3); Renal Epithelial Cells,Urine Present per hpf (None-Few); Squamous Epithelial Cell,Urine Present per lpf (None-Few); WBC,Urine TNTC per hpf (0-3)
[2018-03-25 03:40] LABS: Bacteria,Urine Present per hpf (None-Few); Mucus,Urine Present (Few); Yeast,Urine Present per hpf (None Seen)
--- NOTE | 2018-03-25 04:35 | Emergency Department Note ---
Disposition Clinical Impression: Hypokalemia, Elevated troponin Chest pain Qualifiers: Chest pain type: unspecified Qualified Code(s): R07.9 - Chest pain, unspecified Leukocytosis Qualifiers: Leukocytosis type: unspecified Qualified Code(s): D72.829 - Elevated white blood cell count, unspecified Disposition: Admitted As Inpatient Condition: Fair General Adult HPI - General Chief complaint: ED Chest Pain Stated complaint: chest pain Time Seen by Provider: 03/25/18 00:19 Source: EMS Limitations: other Nursing Notes Reviewed: Yes Vital Signs Reviewed: Yes - History of Present Illness Pain Scale: 6 - Related Data Home Medications Medication Instructions Recorded Confirmed Aspirin [Lo-Dose Aspirin EC] 81 mg PO DAILY 01/28/17 08/08/17 Beclomethasone Diprop 40mcg [QVAR 1 puff IH BID 01/28/17 08/08/17 40 mcg] Cholecalciferol (Vitamin D3) 1,000 unit PO DAILY 01/28/17 08/08/17 [Vitamin D3] Clopidogrel [Plavix] 75 mg PO DAILY 01/28/17 08/08/17 Cyclobenzaprine [Flexeril] 10 mg PO TID PRN 01/28/17 08/08/17 Fenofibrate Nanocrystallized 160 mg PO DAILY 01/28/17 08/08/17 [Triglide] Furosemide [Lasix] 40 mg PO DAILY 01/28/17 08/08/17 Gabapentin [Neurontin] 100 mg PO TID 01/28/17 08/08/17 Guaifenesin [Mucinex] 600 mg PO BID PRN 01/28/17 08/08/17 Insulin ASPART [Novolog Flexpen] 7 unit SQ TIDAC MDD plus sliding 01/28/1708/08 sale Insulin Glargine,Hum.rec.anlog 25 unit SQ HS 01/28/17 08/08/17 [Lantus Solostar] Ipratropium/Albuterol Neb [Duoneb] 3 ml IH Q6HR PRN 01/28/17 08/08/17 Lansoprazole [Prevacid] 30 mg PO DAILY 01/28/17 08/08/17 Lisinopril [Zestril] 20 mg PO DAILY 01/28/17 08/08/17 Magnesium Oxide [Magnesium] 400 mg PO DAILY 01/28/17 08/08/17 Metformin HCl [Glucophage] 1,000 mg PO BID 01/28/17 08/08/17 Metoprolol [Lopressor] 100 mg PO BID 01/28/17 08/08/17 Multivitamin [Multi-Day Vitamins] 1 tab PO DAILY 01/28/17 08/08/17 [place]-3/Dha/Epa/Fish Oil [Fish Oil 2,000 mg PO BID 01/28/17 08/08/17 1,000 mg Softgel] Petrolatum,White [Aloe [place]] 1 appl TP TID 01/28/17 08/08/17 Potassium Chloride [Klor-Con 10] 20 meq PO DAILY 01/28/17 08/08/17 Ropinirole HCl [Requip] 0.25 mg PO HS 01/28/17 08/08/17 Rosuvastatin [Crestor] 20 mg PO HS 01/28/17 08/08/17 Sertraline [Zoloft] 50 mg PO DAILY 01/28/17 08/08/17 Theophylline Anhydrous [Mateo-24] 200 mg PO DAILY 01/28/17 08/08/17 Tiotropium [Spiriva] 1 cap IH DAILY 01/28/17 08/08/17 traZODone [TraZODone] 25 - 50 mg PO HS 01/28/17 08/08/17 Previous Rx's Medication Instructions Recorded Acetaminophen [Tylenol] 650 mg PO Q6HR PRN tab 02/02/17 HYDROcodone/Acet 5/325 mg [[place] 1 tab PO Q4H PRN #7 tab 02/02/17 5-325 mg] Ipratropium/Albuterol Neb [Duoneb] 3 ml IH [id number] #30 inh 02/02/17 Nicotine Patch [Nicoderm] 21 mg TD DAILY #30 patch 02/02/17 Omeprazole [PriLOSEC] 20 mg PO DAILY@0630 02/02/17 Cefdinir [Omnicef] 300 mg PO BID #15 capsule 08/10/17 Doxycycline 100 mg PO BID #15 capsule 08/10/17 amLODIPine [Norvasc] 10 mg PO DAILY #30 tablet 08/10/17 Lidocaine Patch [Lidoderm 5% patch] 1 each TP DAILY PRN #3 adh..patch 02/01/18 Allergies Allergy/AdvReac Type Severity Reaction Status Date / Time Iodinated Contrast- Oral and Allergy Anaphylaxis Verified 11/28/16 17:51 IV Dye [Iodinated Contrast Media - Oral and] Past Medical History - Past Medical History Medical history: Reports: cancer, CHF, COPD, coronary artery disease, CVA, DVT, diabetes, hyperlipidemia, hypertension, myocardial infarction Surgical history: Reports: breast surgery, cancer surgery, carotid endarterectomy, coronary bypass (CABG), LE vascular intervention Psychiatric history: Reports: anxiety, depression - Social History Smoking Status: Current every day smoker Smokeless Tobacco Status: No Alcohol use: Reports: none Drug use: Reports: none Physical Exam - General Limitations: other General appearance: alert Course Vital Signs Temperature 98.9 F 03/25/18 00:23 Pulse Rate 92 03/25/18 00:23 Respiratory Rate 20 03/25/18 00:23 Blood Pressure 116/59 03/25/18 00:23 O2 Sat by Pulse Oximetry 92 03/25/18 00:23 Temperature 97.8 F 03/25/18 07:04 Pulse Rate 66 03/25/18 07:04 Respiratory Rate 18 03/25/18 07:04 Blood Pressure 121/73 03/25/18 07:04 O2 Sat by Pulse Oximetry 93 03/25/18 07:04 Oxygen Delivery Oxygen Delivery Nasal Cannula Medical Decision Making - Medical Records Medical records reviewed: Yes I reviewed the patient's medical records. - Lab Data Lab results reviewed: Yes I reviewed the patient's lab results. Result diagrams: 03/25/18 00:59 03/25/18 00:59 Lab Results 03/25/18 03/25/18 03/25/18 Range/Units 00:59 00:59 00:59 WBC 29.3 H (4.3-11.1) K/mcL RBC 4.79 (3.82-4.97) M/mcL Hgb 10.7 L (11.5-15.4) g/dL Hct 36.3 (35.3-44.9) % MCV 75.8 L (83.0-100.0) fL MCH 22.3 L (28.0-33.3) pg MCHC 29.5 L (31.6-35.5) g/dL RDW 20.9 H (11.5-14.5) % Plt Count 499 H (140-400) K/mcL MPV 11.9 (9.4-12.4) fL Immature Gran % 0.6 (0-4) % Seg Neutrophils % 78.0 % Lymphocytes % 16.9 % Monocytes % 3.9 % Eosinophils % 0.3 % Basophils % 0.3 % Neutrophils # 22.9 H (1.6-8.9) K/mcL Lymphocytes # 5.0 H (0.6-4.6) K/mcL Monocytes # 1.1 (0.0-1.3) K/mcL Eosinophils # 0.1 (0.0-0.6) K/mcL Basophils # 0.1 (0.0-0.2) K/mcL Sodium 138 (136-145) mEq/L Potassium 2.9 L (3.5-5.1) mEq/L Chloride 103 (98-107) mEq/L Carbon Dioxide 23 (23-29) mEq/L BUN 21 (8-23) mg/dL Creatinine 1.00 (0.60-1.20) mg/dL Est GFR ( Amer) > 60 (> 60) Est GFR (Non-Af Amer) 56 L (> 60) BUN/Creatinine Ratio 21 (6-26) Glucose 149 H (70-105) mg/dL Calculated Osmolality 292 (280-300) Calcium 8.6 (8.6-10.3) mg/dL Troponin I 0.16 H* (< 0.04) ng/mL B-Natriuretic Peptide 185 H (Less than 100) pg/mL Urine Color (Yellow) Urine Clarity (Clear) Urine pH (5.0-8.0) pH Units Ur Specific [place] (1.010-1.025) Urine Protein (Neg-Trace) mg/dL Urine Glucose (UA) (Normal) mg/dL Urine Ketones (Negative) mg/dL Urine Blood (Negative) Urine Nitrite (Negative) Urine Bilirubin (Negative) Urine Urobilinogen (Normal) mg/dL Ur Leukocyte Esterase (Negative) Urine Microscopic RBC (0-3) per hpf Urine Microscopic WBC (0-3) per hpf Ur Squamous Epith Cells (None-Few) per lpf Ur Renal Epithelial Cell (None-Few) per hpf Urine Bacteria (None-Few) per hpf Hyaline Casts (None-Few) per lpf Urine Mucus (Few) Urine Yeast (None Seen) per hpf Ur Culture Indicated? (NO) 03/25/18 Range/Units 03:15 WBC (4.3-11.1) K/mcL RBC (3.82-4.97) M/mcL Hgb (11.5-15.4) g/dL Hct (35.3-44.9) % MCV (83.0-100.0) fL MCH (28.0-33.3) pg MCHC (31.6-35.5) g/dL RDW (11.5-14.5) % Plt Count (140-400) K/mcL MPV (9.4-12.4) fL Immature Gran % (0-4) % Seg Neutrophils % % Lymphocytes % % Monocytes % % Eosinophils % % Basophils % % Neutrophils # (1.6-8.9) K/mcL Lymphocytes # (0.6-4.6) K/mcL Monocytes # (0.0-1.3) K/mcL Eosinophils # (0.0-0.6) K/mcL Basophils # (0.0-0.2) K/mcL Sodium (136-145) mEq/L Potassium (3.5-5.1) mEq/L Chloride (98-107) mEq/L Carbon Dioxide (23-29) mEq/L BUN (8-23) mg/dL Creatinine (0.60-1.20) mg/dL Est GFR ( Amer) (> 60) Est GFR (Non-Af Amer) (> 60) BUN/Creatinine Ratio (6-26) Glucose (70-105) mg/dL Calculated Osmolality (280-300) Calcium (8.6-10.3) mg/dL Troponin I (< 0.04) ng/mL B-Natriuretic Peptide (Less than 100) pg/mL Urine Color Dark Yellow (Yellow) Urine Clarity Cloudy A (Clear) Urine pH 5.5 (5.0-8.0) pH Units Ur Specific [place] >= 1.030 H (1.010-1.025) Urine Protein 100 H (Neg-Trace) mg/dL Urine Glucose (UA) Normal (Normal) mg/dL Urine Ketones Negative (Negative) mg/dL Urine Blood Moderate H (Negative) Urine Nitrite Negative (Negative) Urine Bilirubin Small H (Negative) Urine Urobilinogen Normal (Normal) mg/dL Ur Leukocyte Esterase Large H (Negative) Urine Microscopic RBC Present (0-3) per hpf Urine Microscopic WBC TNTC H (0-3) per hpf Ur Squamous Epith Cells Present (None-Few) per lpf Ur Renal Epithelial Cell Present (None-Few) per hpf Urine Bacteria Present (None-Few) per hpf Hyaline Casts None Seen (None-Few) per lpf Urine Mucus Present (Few) Urine Yeast Present H (None Seen) per hpf Ur Culture Indicated? YES A (NO) - Radiology Data Radiology results reviewed: Yes I reviewed the patient's radiology results. Chest X-Ray 03/25/18 00:27 IMPRESSION: No acute process. D/ / Jerrell Mercado MD / Jerrell Mercado MD Interpreting Provider: Jerrell Mercado MD - EKG Data EKG #1 EKG attestation: Yes I reviewed and interpreted this EKG. EKG results narrative: EKG shows a sinus rhythm with ventricular rate is 72. Old inferior infarct. Incomplete left bundle branch block. No acute ST segment elevation or depression. No significant change compared to prior EKG dated 08/08/2017. Attestation Statement - Attestation Attestation: I, Gamal Fountain MD, personally evaluated this patient and discussed their management with the resident physician. I reviewed the resident's note and agree with the documented findings, medical decision making, and plan of care. 63-year-old female presented to the emergency department with a complaint of some sharp mid substernal chest pains that started several hours prior to arrival. No radiation of the pain. No increased shortness of breath. No diaphoresis. Patient has a prior history of coronary artery disease and has had CABG. She also complains of some generalized abdominal pain with nausea and vomiting and diarrhea but states this has been going on for months. She has a chronic indwelling Chandra catheter. No fever. Patient has had multiple CVAs in the past and is nonambulatory. On examination patient is a well-developed well-nourished elderly female in no acute distress. She is alert and oriented 3. There is no cyanosis or diaphoresis. Breath sounds are decreased but equal bilaterally. No rales or wheezes noted. Heart regular rate and rhythm. Abdomen is soft with mild diffuse tenderness. Slightly increased bowel sounds. EKG shows a normal sinus rhythm no acute changes and no significant change from prior EKG. Chest x-ray negative. Labs reviewed. Elevated troponin noted however in comparison she has had frequent elevated troponins previously. Also noted to have a significant leukocytosis. No fever or chills or infectious symptoms. The hospitalist, Dr. Colbert, was consulted and accepted admission of the patient.
[2018-03-25] MEDS ORDERED: Naloxone 0.4 MG/ML INJ IVP PRN (04:50)
--- NOTE | 2018-03-25 05:49 | Internal Med History&Physical ---
<Ben Young - Last Filed: 03/25/18 05:36> Date of Encounter: 03/25/18 Time of Encounter: 05:36 Internal Medicine - H&P: HPI Chief complaint: Chest pain Admitted From: Home History of present illness: Ms. Lauren is a 63 year old female 63-year-old male presents with chief complaint of chest pain that started 6 hours ago while laying in bed. Pain was located in the substernal region, sharp without radiation. Patient denies blurry vision, palpitations, diaphoresis. She reported shortness of breath. She also reports chronic nausea vomiting and loose stools for the last 2-3 months. Her pain did not improve with Tylenol or aspirin. Patient has a history of coronary artery disease status post CABG 5. Patient has history of COPD on 3 L oxygen at home. Patient reports weight loss of 40 pounds in the last 2 months secondary to poor diet. She also reports having a chronic indwelling Rubio secondary to urinary incontinence after having multiple strokes in the past. She has chronic right sided paralysis. She reports her urine has changed color to dark yellow and was more thick. She has her Rubio replaced once a month last time was replaced was on 02/25/2018. She denies fever , chills. Past Med Surg Social Fam HX - Past Medical History Medical history: cancer, CHF, COPD, coronary artery disease, CVA, DVT, diabetes , hyperlipidemia, hypertension, myocardial infarction Additional medical history: GALLSTONES, HERNIA Psychiatric history: anxiety, depression - Past Surgical History Surgical History: breast surgery, cancer surgery, carotid endarterectomy, coronary bypass (CABG), LE vascular intervention Additional surgical history: cervical cancer, breast cancer - Social History Smoking Status: Current every day smoker Smokeless Tobacco Status: No Alcohol use: none Drug use: none - Family History Mother Living Status: Hx Family Cancer: Yes (carcinoma kidney(s)) Hx Family Endocrine Disorder: Yes (DM) Internal Medicine - H&P: Meds Aspirin [Lo-Dose Aspirin EC] 81 mg PO DAILY 01/28/17 [History] Beclomethasone Diprop 40mcg [QVAR 40 mcg] 1 puff IH BID 01/28/17 [History] Cholecalciferol (Vitamin D3) [Vitamin D3] 1,000 unit PO DAILY 01/28/17 [History] Clopidogrel [Plavix] 75 mg PO DAILY 01/28/17 [History] Cyclobenzaprine [Flexeril] 10 mg PO TID PRN 01/28/17 [History] Fenofibrate Nanocrystallized [Triglide] 160 mg PO DAILY 01/28/17 [History] Furosemide [Lasix] 40 mg PO DAILY 01/28/17 [History] Gabapentin [Neurontin] 100 mg PO TID 01/28/17 [History] Guaifenesin [Mucinex] 600 mg PO BID PRN 01/28/17 [History] Insulin ASPART [Novolog Flexpen] 7 unit SQ TIDAC MDD plus sliding sale 01/28/17 [History] Insulin Glargine,Hum.rec.anlog [Lantus Solostar] 25 unit SQ HS 01/28/17 [History ] Ipratropium/Albuterol Neb [Duoneb] 3 ml IH Q6HR PRN 01/28/17 [History] Lansoprazole [Prevacid] 30 mg PO DAILY 01/28/17 [History] Lisinopril [Zestril] 20 mg PO DAILY 01/28/17 [History] Magnesium Oxide [Magnesium] 400 mg PO DAILY 01/28/17 [History] Metformin HCl [Glucophage] 1,000 mg PO BID 01/28/17 [History] Metoprolol [Lopressor] 100 mg PO BID 01/28/17 [History] Multivitamin [Multi-Day Vitamins] 1 tab PO DAILY 01/28/17 [History] [place]-3/Dha/Epa/Fish Oil [Fish Oil 1,000 mg Softgel] 2,000 mg PO BID 01/28/17 [ History] Petrolatum,White [Aloe [place]] 1 appl TP TID 01/28/17 [History] Potassium Chloride [Klor-Con 10] 20 meq PO DAILY 01/28/17 [History] Ropinirole HCl [Requip] 0.25 mg PO HS 01/28/17 [History] Rosuvastatin [Crestor] 20 mg PO HS 01/28/17 [History] Sertraline [Zoloft] 50 mg PO DAILY 01/28/17 [History] Theophylline Anhydrous [Mateo-24] 200 mg PO DAILY 01/28/17 [History] Tiotropium [Spiriva] 1 cap IH DAILY 01/28/17 [History] traZODone [TraZODone] 25 - 50 mg PO HS 01/28/17 [History] Acetaminophen [Tylenol] 650 mg PO Q6HR PRN tab 02/02/17 [Rx] HYDROcodone/Acet 5/325 mg [[place] 5-325 mg] 1 tab PO Q4H PRN #7 tab 02/02/17 [Rx] Ipratropium/Albuterol Neb [Duoneb] 3 ml IH [id number] #30 inh 02/02/17 [Rx] Nicotine Patch [Nicoderm] 21 mg TD DAILY #30 patch 02/02/17 [Rx] Omeprazole [PriLOSEC] 20 mg PO DAILY@0630 02/02/17 [Rx] Cefdinir [Omnicef] 300 mg PO BID #15 capsule 08/10/17 [Rx] Doxycycline 100 mg PO BID #15 capsule 08/10/17 [Rx] amLODIPine [Norvasc] 10 mg PO DAILY #30 tablet 08/10/17 [Rx] Lidocaine Patch [Lidoderm 5% patch] 1 each TP DAILY PRN #3 adh..patch 02/01/18 [ Rx] 3 Allergy/AdvReac Type Severity Reaction Status Date / Time Iodinated Contrast- Oral and Allergy Anaphylaxis Verified 11/28/16 17:51 IV Dye [Iodinated Contrast Media - Oral and] All Systems PM: A 10-system review of systems was performed and is negative for pertinent findings except as documented above in the HPI. Review of systems: Constitutional: Denies fever, chills HEENT: Denies headache, trauma, blurry vision, eye discharge, ear pain, ear discharge neck pain, sore throat, rhinorrhea Heart: Reports chest pain. Denies palpitations, LE edema Lungs: Poor shortness of breath. Denies cough Abdomen: Denies abdominal pain. Reports nausea vomiting diarrhea MSK: Denies back pain, falls, joint pain Kidney: Denies dysuria, hematuria reports change in urine color, consistency. Skin: Denies rash, ulcers Neuro: Reports right upper and lower extremity paralysis Psych: denies axniety, depression - Constitutional Vitals: Temp Pulse Resp BP Pulse Ox 98.9 F 67 18 137/67 93 03/25/18 00:23 03/25/18 04:56 03/25/18 04:56 03/25/18 04:56 03/25/18 04:56 Exam: General: pleasant, without distress HEENT: Head atraumatic, normocephalic, EOMI, PERRL, absent ear discharge or trauma, dry Moist Mucous Membranes, uvula midline Neck: nontender to palpation, absent lymphadenopathy, Cardiovascualr: Regular rate and rhythm with no murmur, absent gallops or rubs, absent pedal edema, radial pulses 2 out of 4. Midline sternal scar from previous CABG Lungs: Clear to auscultation bilaterally, not in respiratory distress Abdomen: Soft nontender, nondistended positive bowel sounds, absent hepatomegaly Skin: Multiple scabbed wounds on bilateral lower extremities secondary, absent rash, absent nodules MSK: absent clubbing, cyanosis, joints without swelling Neuro: Cranial nerves II through XII intact, complete right side paralysis, paresis. alert oriented 3, Psych: good insight and judgment, Internal Med - H&P Results - Labs CBC & Chem 7: 03/25/18 00:59 03/25/18 00:59 - Assessment and plan (1) Chest pain Current Visit: Yes Status: Suspected Assessment and plan: patient had atypical chest pain troponin elevated at 0.[address]-T depression or elevation Heart score 6. currently chest pain free will start aspirin, statin, metoprolol and continue plavix. trend troponin as in the past patient has had elevated troponin 2nd to demand ischemia. If troponin trending up will need to start anticoagulation and cardiology consult. Qualifiers: Chest pain type: chest pain due to myocardial ischemia Ischemic chest pain type: unstable angina pectoris Qualified Code(s): I20.0 - Unstable angina (2) UTI (urinary tract infection) due to urinary indwelling Rubio catheter Current Visit: Yes Status: Acute Assessment and plan: patient has chronic indwelling rubio 2nd to CVA wbc 29.3 reports darker urine with thicker urine rubio last changed 02/25 rubio changed in the ER urinalysis reordered after rubio changed urine culture and blood cultures drawn plan: ceftriaxone daily. lactic acid. abdominal CT Qualifiers: Indwelling urinary catheter type: indwelling urethral catheter Encounter type: subsequent encounter Qualified Code(s): T83.511D - Infection and inflammatory reaction due to indwelling urethral catheter, subsequent encounter ; N39.0 - Urinary tract infection, site not specified (3) CAD (coronary artery disease) Current Visit: Yes Status: Chronic Assessment and plan: hx of CAD s/p CABG x5 admitted for chest pain repeat echocardiogram. continue aspirin, statin, plavix, metoprolol Qualifiers: Coronary Disease-Associated Artery/Lesion type: [place] artery [place] vs. transplanted heart: [place] heart Associated angina: without angina Qualified Code(s): I25.10 - Atherosclerotic heart disease of [place] coronary artery without angina pectoris (4) HTN (hypertension) Current Visit: Yes Status: Chronic Assessment and plan: controlled continue home meds Qualifiers: Hypertension type: essential hypertension Qualified Code(s): I10 - Essential (primary) hypertension (5) Hypokalemia Current Visit: Yes Status: Acute Assessment and plan: K+ 2.9 total potassium given 80 meq check magnesium. (6) Weight loss Current Visit: Yes Status: Acute Assessment and plan: reports 40 pound weight loss in the last two months states her diet is very poor as "everything I eats comes up" Last HgA1c is 8.2 will recheck as poor diabetic control may result in gastroparesis nutrition consult. - Time Spent With Patient Total time spent is greater than 50% in coordination of care (as documented) at patient's floor/unit and/or counseling patient: <GloryjoshHarriettjack Carranza - Last Filed: 03/25/18 07:23> Date of Encounter: 03/25/18 Internal Medicine - H&P: HPI History of present illness: Ms. Lauren is a 63 year old female All Systems PM: A 10-system review of systems was performed and is negative for pertinent findings except as documented above in the HPI. - Constitutional Vitals: Temp Pulse Resp BP Pulse Ox 97.8 F 66 18 121/73 93 03/25/18 07:04 03/25/18 07:04 03/25/18 07:04 03/25/18 07:04 03/25/18 07:04 Internal Med - H&P Results - Labs CBC & Chem 7: 03/25/18 00:59 03/25/18 00:59 - Assessment and plan (1) HTN (hypertension) Current Visit: Yes Status: Chronic Qualifiers: Hypertension type: essential hypertension Qualified Code(s): I10 - Essential (primary) hypertension (2) CAD (coronary artery disease) Current Visit: Yes Status: Chronic Qualifiers: Coronary Disease-Associated Artery/Lesion type: [place] artery [place] vs. transplanted heart: [place] heart Associated angina: without angina Qualified Code(s): I25.10 - Atherosclerotic heart disease of [place] coronary artery without angina pectoris (3) UTI (urinary tract infection) due to urinary indwelling Rubio catheter Current Visit: Yes Status: Acute Qualifiers: Indwelling urinary catheter type: indwelling urethral catheter Encounter type: subsequent encounter Qualified Code(s): T83.511D - Infection and inflammatory reaction due to indwelling urethral catheter, subsequent encounter ; N39.0 - Urinary tract infection, site not specified (4) Hypokalemia Current Visit: Yes Status: Acute (5) Chest pain Current Visit: Yes Status: Suspected Qualifiers: Chest pain type: chest pain due to myocardial ischemia Ischemic chest pain type: unstable angina pectoris Qualified Code(s): I20.0 - Unstable angina (6) Weight loss Current Visit: Yes Status: Acute - Time Spent With Patient Total time spent is greater than 50% in coordination of care (as documented) at patient's floor/unit and/or counseling patient: - Attending Attestation Patient seen and examined. Case discussed with resident. Atypical chest pain with worsening abdominal pain upon my evaluation. Continue to trend troponin. Consider cardiology consult. Patient has a allergic reaction to contrast dye. We will obtain a ultrasound of the abdomen.
[2018-03-25] MEDS ORDERED: Pantoprazole 40 MG VIAL IVP ONE (05:51)
[2018-03-25] MEDS ORDERED: Isovue-370 500 ML INFUS..BTL IV ONE (05:53)
[2018-03-25] MEDS ORDERED: Potassium Chloride Elixir 20 MEQ/15 ML UDC PO ONE (05:55)
[2018-03-25] MEDS: Ondansetron 4 MG/2 ML VIAL IVP PRN (06:04)
[2018-03-25] MEDS: cefTRIAXone 2,000 MG in Water for inj. (sterile) 20 ML 20 ML IVPB SCH (06:06)
[2018-03-25] MEDS: 0.9 % Sodium Chloride 1,000 ML IVC SCH ×2 (06:07→22:38)
[2018-03-25] MEDS: *HR* Heparin 5,000 UNIT/ML VIAL SQ SCH ×3 (06:10→22:35)
[2018-03-25] MEDS: OXYCODONE Oral CONC 10 MG/0.5 ML ORAL.SYG SL PRN ×2 (06:27→17:42)
[2018-03-25] MEDS: Tiotropium 18 MCG inhalation IH SCH (07:56)
[2018-03-25] MEDS ORDERED: amLODIPine 5 MG TABLET PO SCH (09:00)
[2018-03-25] MEDS ORDERED: Furosemide 40 MG TABLET PO SCH (09:00)
[2018-03-25] MEDS: Metoprolol 100 MG TABLET PO SCH ×2 (10:42→22:34)
[2018-03-25] MEDS: Gabapentin 100 MG CAPSULE PO SCH ×3 (11:03→22:34)
[2018-03-25] MEDS: Aspirin 81 MG TAB.CHEW PO SCH (11:03)
[2018-03-25] MEDS: Lisinopril 20 MG TABLET PO SCH (11:04)
--- NOTE | 2018-03-25 13:01 | Internal Med Progress Note ---
Hospitalist Progress Note - Encounter Date of Encounter: 03/25/18 Time of Encounter: 09:40 - Subjective Interval History: Pt was seen and assessed at 0940, pt is drowsy, but arouses easily. She denies chest pain, SOB, nausea, vomiting, diarrhea. She states that she is living with her son currently and gets [facility], but they do not have aids. Chiropractor Sole Practitioner consult entered. - Exam Vitals: Temp Pulse Resp BP Pulse Ox 97.8 F 69 15 105/68 91 03/25/18 11:38 03/25/18 11:38 03/25/18 11:38 03/25/18 11:38 03/25/18 11:38 Exam: General: Pt resting quietly on bed, no distress. Pt unkempt, toenails very long , dark staining under nails. 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 HEENT: mucous mumbranes moist, no conjuctival pallor Neck: supple, no tracheal deviation, no lymphadenopathy, tenderness, no thyromegaly Heart: S1S2 heard without gallops, clicks, murmurs, no bradycardia or tachycardia, pt has no peripheral edema, pedal and radial pulses palpable bilaterally. Lungs: clear throughout without wheezing, rales, or ronchi, respirations are unlabored Abdomen: soft and non tender with bowel sound present, no hepatomegaly. Psych: Normal affect with good eye contact - Assessment and Plan (1) HTN (hypertension) Current Visit: Yes Status: Chronic Assessment and Plan: Well controlled. Continue current medications (2) CAD (coronary artery disease) Current Visit: Yes Status: Chronic Assessment and Plan: Prior history, CABG x 5. Continue ASA, statin, plavix, metroprolol Continue telemetry (3) UTI (urinary tract infection) due to urinary indwelling Chandra catheter Current Visit: Yes Status: Acute Assessment and Plan: Patient with leukocytosis. Patient has chronic indwelling Chandra status post CVA. Urine is cloudy, high specific gravity, moderate blood, large leukocyte esterase , too numerous to count white cells. Culture was indicated and pending. Chandra was changed in the ED, UA obtained after it was changed. Blood cultures ordered and pending. Abdominal ultrasound ordered and pending. Continue Rocephin. (4) Hypokalemia Current Visit: Yes Status: Acute Assessment and Plan: K+ 2.9 this a.m. total potassium given 80 meq in the ED Mg+ 0.9. Magnesium Sulfate 2 grams IV given. Currently waiting on repeat Mg+ and K+ . (5) Chest pain Current Visit: Yes Status: Suspected Assessment and Plan: 03/25- Pt denies chest pain. Trop continued to elevate today, 0.23 this a.m. Cardiology consulted, though it is likely demand ischemia. EKG NSR Last echocardiogram was in January, that showed an LVEF of 60-65% with mild-to -moderate concentric LVH, mild LV DD, no significant valvular dysfunction. Continue telemetry Continue ASA, statin, BB, Plavix. Cardiology consult pending, I appreciate their recommendations. (6) Weight loss Current Visit: Yes Status: Acute Assessment and Plan: Per patient history, she has experienced a 40 pound weight loss in the last 2 months secondary to nausea and vomiting. Unclear etiology. Nutrition consult in. DVT Prophylaxis: Heparin subcutaneous. - Time Spent with Patient Total time spent is greater than 50% in coordination of care (as documented) at patient's floor/unit and/or counseling patient: less than 15 minutes Plan of Care Discussed with: patient Internal Medicine: Result - Labs CBC & Chem 7: 03/25/18 00:59 03/25/18 00:59 Labs: Cardiac Enzymes 03/25/18 Range/Units 07:28 Troponin I 0.23 H* (< 0.04) ng/mL Consult Discharge Plan - Plan (1) HTN (hypertension) Qualifiers: Hypertension type: essential hypertension Qualified Code(s): I10 - Essential (primary) hypertension (2) CAD (coronary artery disease) Qualifiers: Coronary Disease-Associated Artery/Lesion type: [place] artery [place] vs. transplanted heart: [place] heart Associated angina: without angina Qualified Code(s): I25.10 - Atherosclerotic heart disease of [place] coronary artery without angina pectoris (3) UTI (urinary tract infection) due to urinary indwelling Chandra catheter Qualifiers: Indwelling urinary catheter type: indwelling urethral catheter Encounter type : subsequent encounter Qualified Code(s): T83.511D - Infection and inflammatory reaction due to indwelling urethral catheter, subsequent encounter ; N39.0 - Urinary tract infection, site not specified (5) Chest pain Qualifiers: Chest pain type: chest pain due to myocardial ischemia Ischemic chest pain type: unstable angina pectoris Qualified Code(s): I20.0 - Unstable angina
--- NOTE | 2018-03-25 13:37 | Electrocardiograph Report ---
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
--- NOTE | 2018-03-25 14:02 | Cardiology Consult Note ---
Date of Encounter: 03/25/18 Time of Encounter: 13:00 Assessment and Plan (1) Elevated troponin Current Visit: Yes Status: Acute Per cardology: -Troponin 0.16, 0.23 in the setting of sepsis, UTI. -Of note, appears to have chroniacally elevated troponins. -Reports some atypical chest pain, different from previous angina. -No acute ischemic ECG changes. -01/2017 TTE with LVEF 60-65%, mild-moderate concentric LVH, atypical septal motion consistent with post op status, mild diastolic dysufnction, descending thoracic aorta mildly dilated at 3.76cm, no segmental wall motion abnormalities noted. -No recent ischemic evaluations noted. -NSTEMI II in the setting of UTI, sepsis. No cardiac rehab consult warranted. -Will repeat TTE. -Continue to trend troponins. (2) Chest pain Current Visit: Yes Status: Acute Per cardiology: -Reports atypical chest pain. Different from previous angina. -No acute ischemic changes. -TTE pending. -Can consider stress test prior to discharge, pending TTE, troponin trend. Qualifiers: Chest pain type: unspecified Qualified Code(s): R07.9 - Chest pain, unspecified (3) History of coronary artery bypass graft Current Visit: No Status: Acute Per cardiology: -Known history of CABG reportedly 5 vessel at [place] 2004. -Follows with outside cardiology. -On asa, statin, BB, plavix. Discussion w patient/family: The assessment and plan as outlined above was discussed with the patient who expressed understanding and agreement. All questions were answered. Thank you for involving us in the care of your patient. Please call with any questions. Discussed and reviewed with . History of Present Illness Consult date: 03/25/18 Requesting physician: Penelope Rosa Consult reason: elevated troponin Chief complaint: abdominal, chest pain History of present illness: Ms. Lauren is a 63 year old female with a relevant past medical history of COPD, HLD, HLD, CVA s/p CEA, DM, CAD s/p CABG 2004, legally blind, PVD s/p fem- tib bypass, tobacco abuse who presented to [facility] with complaints of abdominal and chest pain. Patient reports abdominal pain radiates into her chest. States pain started at rest. Denies exertional symptoms. Denies shortness of breath. Patient reports this chest pain is different from previous angina. Past Med Surg Social Fam HX - Past Medical History Attestation: Yes The following information was validated with the patient. Source: patient, old records reviewed Medical history: cancer, CHF, COPD, coronary artery disease, CVA, DVT, diabetes , hyperlipidemia, hypertension, myocardial infarction Additional medical history: GALLSTONES, HERNIA Psychiatric history: anxiety, depression - Past Surgical History Surgical History: breast surgery, cancer surgery, carotid endarterectomy, coronary bypass (CABG), LE vascular intervention Additional surgical history: cervical cancer, breast cancer - Social History Smoking Status: Current every day smoker Packs per day: 1 Smokeless Tobacco Status: No Alcohol use: none Drug use: none - Family History Mother Living Status: Hx Family Cancer: Yes (carcinoma kidney(s)) Hx Family Endocrine Disorder: Yes (DM) Medications and Allergies Aspirin [Lo-Dose Aspirin EC] 81 mg PO DAILY 01/28/17 [History] Beclomethasone Diprop 40mcg [QVAR 40 mcg] 1 puff IH BID 01/28/17 [History] Cholecalciferol (Vitamin D3) [Vitamin D3] 1,000 unit PO DAILY 01/28/17 [History] Clopidogrel [Plavix] 75 mg PO DAILY 01/28/17 [History] Cyclobenzaprine [Flexeril] 10 mg PO TID PRN 01/28/17 [History] Fenofibrate Nanocrystallized [Triglide] 160 mg PO DAILY 01/28/17 [History] Furosemide [Lasix] 40 mg PO DAILY 01/28/17 [History] Gabapentin [Neurontin] 100 mg PO TID 01/28/17 [History] Guaifenesin [Mucinex] 600 mg PO BID PRN 01/28/17 [History] Insulin ASPART [Novolog Flexpen] 7 unit SQ TIDAC MDD plus sliding sale 01/28/17 [History] Insulin Glargine,Hum.rec.anlog [Lantus Solostar] 25 unit SQ HS 01/28/17 [History ] Ipratropium/Albuterol Neb [Duoneb] 3 ml IH Q6HR PRN 01/28/17 [History] Lansoprazole [Prevacid] 30 mg PO DAILY 01/28/17 [History] Lisinopril [Zestril] 20 mg PO DAILY 01/28/17 [History] Magnesium Oxide [Magnesium] 400 mg PO DAILY 01/28/17 [History] Metformin HCl [Glucophage] 1,000 mg PO BID 01/28/17 [History] Metoprolol [Lopressor] 100 mg PO BID 01/28/17 [History] Multivitamin [Multi-Day Vitamins] 1 tab PO DAILY 01/28/17 [History] Pyrites-3/Dha/Epa/Fish Oil [Fish Oil 1,000 mg Softgel] 2,000 mg PO BID 01/28/17 [ History] Petrolatum,White [Aloe [place]] 1 appl TP TID 01/28/17 [History] Potassium Chloride [Klor-Con 10] 20 meq PO DAILY 01/28/17 [History] Ropinirole HCl [Requip] 0.25 mg PO HS 01/28/17 [History] Rosuvastatin [Crestor] 20 mg PO HS 01/28/17 [History] Sertraline [Zoloft] 50 mg PO DAILY 01/28/17 [History] Theophylline Anhydrous [Mateo-24] 200 mg PO DAILY 01/28/17 [History] Tiotropium [Spiriva] 1 cap IH DAILY 01/28/17 [History] traZODone [TraZODone] 25 - 50 mg PO HS 01/28/17 [History] Acetaminophen [Tylenol] 650 mg PO Q6HR PRN tab 02/02/17 [Rx] HYDROcodone/Acet 5/325 mg [[place] 5-325 mg] 1 tab PO Q4H PRN #7 tab 02/02/17 [Rx] Ipratropium/Albuterol Neb [Duoneb] 3 ml IH [id number] #30 inh 02/02/17 [Rx] Nicotine Patch [Nicoderm] 21 mg TD DAILY #30 patch 02/02/17 [Rx] Omeprazole [PriLOSEC] 20 mg PO DAILY@0630 02/02/17 [Rx] Cefdinir [Omnicef] 300 mg PO BID #15 capsule 08/10/17 [Rx] Doxycycline 100 mg PO BID #15 capsule 08/10/17 [Rx] amLODIPine [Norvasc] 10 mg PO DAILY #30 tablet 08/10/17 [Rx] Lidocaine Patch [Lidoderm 5% patch] 1 each TP DAILY PRN #3 adh..patch 02/01/18 [ Rx] 3 Allergy/AdvReac Type Severity Reaction Status Date / Time Iodinated Contrast- Oral and Allergy Anaphylaxis Verified 11/28/16 17:51 IV Dye [Iodinated Contrast Media - Oral and] All Systems Review: The remainder of the systems were reviewed and are negative - Cardiovascular Cardiovascular: as per HPI, chest pain at rest - Gastrointestinal Gastrointestinal: abdominal pain Physical Examination Vital Signs, Last 4 Hours Temp Pulse Resp BP Pulse Ox 03/25/18 11:38 97.8 F 69 15 105/68 91 General: Conversant, No Apparent Distress HEENT: Atraumatic, Normocephaly, Mucus Membranes Moist Neck: No JVD, Normal carotid pulses Cardiac: Reg Rate and Rhythm, Normal S1 and S2, No Murmur Lungs: Normal Breath Sounds, No Wheeze, Rales, Rhonchi Neuro: Alert and responsive, No focal deficits noted Abdomen: Soft, Other (Tender) Skin: No rashes noted on visualized skin Musculoskeletal: No Chest Wall Tenderness Extremities: No Clubbing, No Cyanosis, No Edema, Normal Pulses, Other (Right hemiparesis noted. ) Results 03/25/18 00:59 03/25/18 00:59 Lab Results Impressions Chest X-Ray 03/25/18 00:27 IMPRESSION: No acute process. D/ / Jerrell Mercado MD / Jerrell Mercado MD Interpreting Provider: Jerrell Mercado MD Active Medications Amlodipine Besylate (Norvasc) 10 mg PO DAILY [facility] PRN Reason: Protocol Stop: 09/24/18 09:01 Last Admin: 03/25/18 11:03 Dose: 10 mg Aspirin (Aspirin) 81 mg PO DAILY [facility] Stop: 09/24/18 09:01 Last Admin: 03/25/18 11:03 Dose: 81 mg Clopidogrel Bisulfate (Plavix) 75 mg PO DAILY [facility] Stop: 09/24/18 09:01 Last Admin: 03/25/18 11:03 Dose: 75 mg Furosemide (Lasix) 40 mg PO DAILY [facility]AR[facility] Stop: 09/24/18 09:01 Last Admin: 03/25/18 11:03 Dose: 40 mg Gabapentin (Neurontin) 100 mg PO TID [facility] Stop: 09/24/18 09:01 Last Admin: 03/25/18 11:03 Dose: 100 mg Heparin Sodium (Porcine) (Heparin) 5,000 unit SQ Q8HCO [facility] Stop: 09/24/18 06:01 Last Admin: 03/25/18 06:10 Dose: 5,000 unit Ceftriaxone Sodium 2,000 mg/ (Sterile Water) 20 mls @ 600 mls/hr IVPB Q24H [facility] Stop: 09/24/18 05:01 Last Admin: 03/25/18 06:06 Dose: 600 mls/hr Sodium Chloride (0.9 % Sodium Chloride) 1,000 mls @ 100 mls/hr IVC .Q10H [facility] Stop: 03/26/18 01:44 Last Admin: 03/25/18 06:07 Dose: 100 mls/hr Lisinopril (Zestril) 20 mg PO DAILY [facility] PRN Reason: Protocol Stop: 09/24/18 09:01 Last Admin: 03/25/18 11:04 Dose: 20 mg Metoprolol Tartrate (Lopressor) 100 mg PO BID [facility] Stop: 09/24/18 09:01 Last Admin: 03/25/18 10:42 Dose: Not Given Naloxone HCl (Narcan) 0.4 mg IVP Q2MIN PRN PRN Reason: SEE COMMENTS Stop: 09/24/18 04:51 Omeprazole (Prilosec) 20 mg PO DAILY [facility] PRN Reason: Protocol Stop: 09/24/18 09:01 Last Admin: 03/25/18 11:03 Dose: 20 mg Ondansetron HCl (Zofran) 4 mg IVP Q6HR PRN; Protocol PRN Reason: Nausea Stop: 09/24/18 05:52 Last Admin: 03/25/18 06:04 Dose: 4 mg Oxycodone HCl (Oxycodone Oral Conc) 5 mg SL Q6HR PRN; Protocol PRN Reason: Analgesia Stop: 09/24/18 05:54 Last Admin: 03/25/18 06:27 Dose: 5 mg Potassium Chloride (Potassium Chloride) 20 meq PO DAILY [facility] Stop: 09/24/18 09:01 Last Admin: 03/25/18 11:03 Dose: 20 meq Rosuvastatin Calcium (Crestor) 20 mg PO HS [facility] Stop: 09/24/18 21:01 Sertraline HCl (Zoloft) 50 mg PO DAILY [facility] Stop: 09/24/18 09:01 Last Admin: 03/25/18 11:04 Dose: 50 mg Tiotropium [place] (Spiriva) 18 mcg IH DAILY [facility] Stop: 09/24/18 09:01 Last Admin: 03/25/18 07:56 Dose: Not Given Trazodone HCl (Trazodone) 25 mg PO HS [facility] Stop: 09/24/18 21:01 Laboratory Tests 03/25/18 03/25/18 03/25/18 00:59 00:59 07:28 WBC 29.3 H Hgb 10.7 L Potassium 2.9 L Creatinine 1.00 Troponin I 0.16 H* 0.23 H* - Imaging and Cardiology Chest Xray: report reviewed Echo: pending, report reviewed - EKG Interpretation EKG results cardiology: personally reviewed (ECG with SR, HR 72. Incomplete LBBB , LVH. No acute changes noted from previous ECG.), other (Telemetry reviewed with average HR previous 12 hours noted to be 67, SR. PVCs and PACs noted.) Consult Discharge Plan - Plan Referrals: NONE,PCP [Primary Care Provider] -
[2018-03-25 14:22] LABS: Magnesium 1.3 mg/dL (1.6-2.6); Potassium 4.5 mEq/L (3.5-5.1); Troponin I 0.19 ng/mL (< 0.04)
[2018-03-25] MEDS: traZODone 50 MG TABLET PO SCH (22:34)
[2018-03-26] MEDS: Ondansetron 4 MG/2 ML VIAL IVP PRN (02:32)
[2018-03-26] MEDS: OXYCODONE Oral CONC 10 MG/0.5 ML ORAL.SYG SL PRN (05:10)
[2018-03-26] MEDS: cefTRIAXone 2,000 MG in Water for inj. (sterile) 20 ML 20 ML IVPB SCH (05:11)
[2018-03-26] MEDS: *HR* Heparin 5,000 UNIT/ML VIAL SQ SCH ×3 (05:11→21:49)
[2018-03-26 06:51] LABS: Hematocrit 36.6 % (35.3-44.9); Hemoglobin 10.6 g/dL (11.5-15.4); Mean Corpuscular Hemoglobin 22.7 pg (28.0-33.3); Mean Corpuscular Volume 78.5 fL (83.0-100.0); Mean Platelet Volume 12.8 fL (9.4-12.4); Platelet Count 485 K/mcL (140-400); Red Blood Count 4.66 M/mcL (3.82-4.97); Red Cell Distribution Width 21.2 % (11.5-14.5)
[2018-03-26 07:09] LABS: BUN/Creatinine Ratio 22 (6-26); Blood Urea Nitrogen 22 mg/dL (8-23); Calcium 8.4 mg/dL (8.6-10.3); Carbon Dioxide 24 mEq/L (23-29); Chloride 111 mEq/L (98-107); Glucose 194 mg/dL (70-105); Osmolality,Calculated 303 (280-300); Potassium 5.2 mEq/L (3.5-5.1); Sodium 142 mEq/L (136-145); eGFR For Non-African Americans 55 (> 60)
[2018-03-26 07:17] LABS: Estimated Average Glucose 148 mg/dl; Hemoglobin A1C 6.8 %
[2018-03-26 07:41] LABS: Lymphocytes # 1.8 K/mcL (0.6-4.6); Monocytes # 1.8 K/mcL (0.0-1.3); Neutrophils # 40.4 K/mcL (1.6-8.9); Platelet Estimate Increased (Normal)
[2018-03-26] MEDS: Aspirin 81 MG TAB.CHEW PO SCH (08:30)
[2018-03-26] MEDS: Gabapentin 100 MG CAPSULE PO SCH ×3 (08:30→21:49)
--- NOTE | 2018-03-26 08:59 | Internal Med Progress Note ---
<Kathy Acosta - Last Filed: 03/26/18 17:27> Hospitalist Progress Note - Encounter Date of Encounter: 03/26/18 Time of Encounter: 09:15 - Subjective Interval History: Ms. Lauren is a 63 year old female with a relevant past medical history of COPD, HTN, CVA x2 s/p CEA, DM2, CAD s/p CABG 2004, legally blind, PVD s/p fem- tib bypass who presented to [facility] with complaints of abdominal and chest pain. Ms. Marquez denies having chest pain currently and has developed diffuse abdominal pain. She has a hx of n/v and diarrhea for the last couple of months. She denies worsening SOB. - Exam Vitals: Temp Pulse Resp BP Pulse Ox 98.4 F 68 16 100/54 94 03/26/18 06:51 03/26/18 06:51 03/26/18 06:51 03/26/18 06:51 03/26/18 06:51 Exam: CONSTITUTIONAL: alert, oriented, in no acute distress, well nourished, well- developed . 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 PSYCH: alert, oriented, cooperative with exam, good eye contact, cognitive function intact, judgement and insight good . - Assessment and Plan (1) Abdominal pain Current Visit: Yes Status: Acute Assessment and Plan: Diffuse abdominal pain. N/V and diarrhea with a 40lb weight loss over the last couple of months, per outpatient records she has lost 56lbs since October. PMH of breast cancer and cervical cancer. Unsure last colonoscopy, she does not think she has ever had one or an upper endoscopy. RUQ ultrasound showed cholelithiasis without acute chlecystitis and dilated common bile duct 1cm. CT Abd shows mild/moderate dilated loops of bowel - Surgery consulted for possible ileus. Patient has had watery diarrhea, could also be due to enteritis. GI panel pending. She has been taking ibuprofen, so also possibly due to peptic ulcer. Plan: - surgery consulted for ileus - labs: hepatic panel, lipase, amylase, lactic acid, GI panel pending - blood cultures pending (03/25), Urine cultures pending (03/25) - Zofran for nausea - continue PPI - Diet: NPO for ileus - dispo: able to take adequate PO intake (2) Leukocytosis Current Visit: Yes Status: Acute Assessment and Plan: WBC increased from 29.3 to 43.9. Unsure of etiology. Blood and urine cultures pending. Patient does have indwelling rubio so high risk for UTI. She also has had abdominal pain with N/V and diarrhea for the past couple of months, so GI source is also likely. Will work up, see plan above. Plan: - continue ceftriaxone ( day 3), Vanco IV ( day 1) and Flagyl ( day 1 ) - fluid bolus 500ml (3) Chest pain Current Visit: Yes Status: Suspected Assessment and Plan: Presented for chest pain. Troponin max 0.23, decreased to 0.19. Cardiology consulted and believes this to be due to demand ischemia/ NSTEMI II due to UTI. EKG NSR 01/2017 TTE with LVEF 60-65%, mild-moderate concentric LVH, atypical septal motion consistent with post op status, mild diastolic dysufnction, descending thoracic aorta mildly dilated at 3.76cm, no segmental wall motion abnormalities noted. Plan: - echo, normal EF 70% -Continue telemetry - Continue ASA, statin, Plavix. Holding BB due to hypotension this morning - Cardiology signed off (4) HTN (hypertension) Current Visit: Yes Status: Chronic Assessment and Plan: Currently at the lower range of normal. Will hold Lasix, BB, Norvasc, and lisinopril for this AM, will reassess in the afternoon for BP management. 500ml fluid bolus given. (5) CAD (coronary artery disease) Current Visit: Yes Status: Chronic Assessment and Plan: Prior history, CABG x 5. Continue ASA, statin, plavix, Continue telemetry. Cardiology following - see plan above. (6) UTI (urinary tract infection) due to urinary indwelling Rubio catheter Current Visit: Yes Status: Acute Assessment and Plan: Patient with leukocytosis. Patient has chronic indwelling Rubio status post CVA. Urine is cloudy, high specific gravity, moderate blood, large leukocyte esterase, too numerous to count white cells. Culture was indicated and pending. Plan: Rubio was changed in the ED, UA obtained after it was changed. Blood cultures ordered and pending. Continue Rocephin, flagyl and vanco (7) Hypokalemia Current Visit: Yes Status: Acute Assessment and Plan: K+ 2.9 initially.total potassium given 80 meq in the ED. Currently Potassium 5.2. Holding potassium. Magnesium 1.3 yesterday, repeat today pending. (8) Weight loss Current Visit: Yes Status: Acute Assessment and Plan: Per patient history, she has experienced a 40 pound weight loss in the last 2 months secondary to nausea and vomiting. Per outpatient records 56lb weight loss. Unclear etiology. past medical hx of cervical cancer with hysterectomy and breast cancer. Has not had a mammogram is a couple of years. She has had nv and diarrhea for a couple of of months. CT scan of abd and pelvis did not show a mass. Plan: -Nutrition consulted (9) History of CVA (cerebrovascular accident) Current Visit: Yes Status: Acute Assessment and Plan: CVA X2, Continue ASA and Plavix (10) COPD (chronic obstructive pulmonary disease) Current Visit: Yes Status: Acute Assessment and Plan: Currently not in acute exacerbation. Continue o2 support and home meds. DVT Prophylaxis: Heparin SQ - Time Spent with Patient Total time spent is greater than 50% in coordination of care (as documented) at patient's floor/unit and/or counseling patient: Plan of Care Discussed with: patient Internal Medicine: Result - Labs CBC & Chem 7: 03/26/18 06:14 03/26/18 06:14 Labs: Short CBC 03/26/18 Range/Units 06:14 WBC 43.9 H* (4.3-11.1) K/mcL Hgb 10.6 L (11.5-15.4) g/dL Hct 36.6 (35.3-44.9) % Plt Count 485 H (140-400) K/mcL Neutrophils # 40.4 H (1.6-8.9) K/mcL BMP 03/25/18 03/26/18 13:33 06:14 Sodium 142 Potassium 4.5 D 5.2 H Chloride 111 H Carbon Dioxide 24 BUN 22 Creatinine 1.01 Glucose 194 H Calcium 8.4 L Cardiac Enzymes 03/25/18 Range/Units 13:33 Troponin I 0.19 H* (< 0.04) ng/mL - Impressions Impressions Abdomen Ultrasound 03/25/18 15:00 IMPRESSION: 1. Cholelithiasis. No definite pericholecystic fluid or gallbladder wall thickening to suggest acute cholecystitis. If there is clinical concern for acute cholecystitis, further evaluation with nuclear medicine HIDA scan may be performed. 2. Dilated common bile duct measuring up to 1 cm. Further evaluation with ERCP/MRCP may be obtained to evaluate for choledocholithiasis. D/ / 03/25/2018 15:54:00 Ashlee Hargrove MD / Ashli Garibay Interpreting Provider: Ashlee Hargrove MD Consult Discharge Plan - Plan Referrals: NONE,PCP [Primary Care Provider] - <Alex Parham - Last Filed: 03/26/18 18:37> Hospitalist Progress Note - Encounter Date of Encounter: 03/26/18 - Exam Vitals: Temp Pulse Resp BP Pulse Ox 98.1 F 85 15 100/56 92 03/26/18 16:11 03/26/18 16:11 03/26/18 16:11 03/26/18 16:11 03/26/18 16:11 - Assessment and Plan (1) HTN (hypertension) Current Visit: Yes Status: Chronic (2) CAD (coronary artery disease) Current Visit: Yes Status: Chronic (3) UTI (urinary tract infection) due to urinary indwelling Rubio catheter Current Visit: Yes Status: Acute (4) Hypokalemia Current Visit: Yes Status: Acute (5) Chest pain Current Visit: Yes Status: Suspected (6) Weight loss Current Visit: Yes Status: Acute (7) Abdominal pain Current Visit: Yes Status: Acute (8) Leukocytosis Current Visit: Yes Status: Acute (9) History of CVA (cerebrovascular accident) Current Visit: Yes Status: Acute (10) COPD (chronic obstructive pulmonary disease) Current Visit: Yes Status: Acute - Time Spent with Patient Total time spent is greater than 50% in coordination of care (as documented) at patient's floor/unit and/or counseling patient: Internal Medicine: Result - Labs CBC & Chem 7: 03/26/18 06:14 03/26/18 06:14 Labs: Short CBC 03/26/18 Range/Units 06:14 WBC 43.9 H* (4.3-11.1) K/mcL Hgb 10.6 L (11.5-15.4) g/dL Hct 36.6 (35.3-44.9) % Plt Count 485 H (140-400) K/mcL Neutrophils # 40.4 H (1.6-8.9) K/mcL BMP 03/26/18 06:14 Sodium 142 Potassium 5.2 H Chloride 111 H Carbon Dioxide 24 BUN 22 Creatinine 1.01 Glucose 194 H Calcium 8.4 L Liver Function 03/26/18 Range/Units 09:52 Total Bilirubin 0.2 L (0.3-1.0) mg/dL Direct Bilirubin 0.0 (0.0-0.2) mg/dL AST 39 (13-39) Units/L ALT 19 (7-52) Units/L Alkaline Phosphatase 186 H (34-104) Units/L Albumin 2.6 L (3.5-5.7) g/dL - Impressions Impressions Echocardiogram 03/25/18 11:52 Impressions: Sinus tachycardia. LVEF 70%. Hyperdynamic LV systolic function with mid-cavity obliteration. Mild left ventricular diastolic dysfunction. Normal right ventricular structure and function. No significant valvular dysfunction. No pulmonary hypertension. Left Ventricular Wall Motion: Rest Echo Findings All wall segments showed normal motion. Findings: Study Quality * Technically adequate exam. ECG Findings * Sinus tachycardia. Left Ventricle * LVEF 70%. * Mild left ventricular diastolic dysfunction. * Mid cavity obliteration. * Normal LV chamber size. * LV wall thickness measurements not well obtained. Right Ventricle * Normal right ventricular structure and function. Left Atrium * Normal left atrial size. Right Atrium * Normal right atrial size. Mitral Valve * Normal mitral valve structure. * No mitral stenosis. * No mitral regurgitation. Tricuspid Valve * No tricuspid regurgitation. * Normal tricuspid valve structure. * Estimated RA pressure is 3 mmHg. * No pulmonary hypertension. Pulmonic Valve * Pulmonic valve is not well visualized. * No pulmonic stenosis. * No pulmonic regurgitation. Pulmonary Artery * Pulmonary artery not well visualized. Aorta * Not optimally visualized. Pericardium * There is no pericardial effusion present. Aortic Valve * Aortic valve not well visualized. * No aortic regurgitation. * No aortic stenosis. Interatrial Septum * Interatrial septum not well evaluated. IVC * IVC is small in size. Abdomen/Pelvis CT 03/26/18 12:30 IMPRESSION: 1. Findings consistent with presence of bibasilar parenchymal disease, left more so than right with visualization of subtle areas of nodularity within both lung bases. Finding raises possibility of changes of multifocal pneumonia. Short-term follow-up plain film examination would be helpful for re-evaluation. 2. Cholelithiasis. Non-specific moderate-marked distention of the gallbladder. Follow-up gallbladder ultrasound may be helpful for more complete evaluation. 3. Visualization of small focal area of fluid attenuation adjacent to pancreatic head, gallbladder, and duodenal sweep. Exact etiology of the finding is indeterminate. Change associated with inflammatory process involving adjacent structures is in the differential diagnosis. Short-term follow-up examination may be helpful for re-evaluation. 4. Mild prominence of mural thickness of the distal esophagus. Finding is nonspecific; however, raises the possibility of changes of mild esophagitis. 5. Mild prominence of mural thickness of pyloric antrum. Finding could be related to incomplete distention/peristalsis although changes of underlying peptic ulcer disease cannot be excluded. 6. Mild-moderate distention of several loops of small bowel within the left abdomen/pelvis. Finding could be on the basis of ileus. Low-grade partial obstruction is also a possibility. High-grade obstruction is felt to be unlikely due to visualization of contrast material within the colon. 7. Prominence of mural thickness of several loops of small bowel in the right lower quadrant/pelvis. Finding could be related to incomplete distention/peristalsis although changes of underlying enteritis are in the differential diagnosis. 8. No evidence of intraperitoneal free air or abscess. D/ / 03/26/2018 14:32:11 Rell Boothe MD / bcarter Interpreting Provider: Rell Boothe MD - Attending Attestation I examined this patient and my medical decision-making was reviewed with the Resident Physician Dr. Acosta. I agree with the documented findings, disposition and treatment plan as described except to the extent set forth below. Ms. Lauren is a 63 y/o F admitted here with sepsis due to multi focal pneumonia. Pt also c/o abdominal pain. SO obtained CT of Abd today which showed multi focal pneumonia, non specific moderate distension of gallbladder, mild to moderate distention of small bowel several loops concerning for obstruction. Gen: A, A, O x 3 Chest : Diminished BS b/l Heart: S1S2+ Tachy Abd: Soft, moderate discomfort in lower abdomen a/p 1. Acute SBO 2. ?? Cholecystitis 3. Sepsis with Pneumonia cont empirical abx Rocephin + added Flagyl Surgery consulted NPO IV hydration IV analgesics <Kathy Acosta - Last Filed: 03/26/18 17:27> (1) Abdominal pain Qualifiers: Abdominal location: generalized Qualified Code(s): R10.84 - Generalized abdominal pain (2) Leukocytosis Qualifiers: Leukocytosis type: unspecified Qualified Code(s): D72.829 - Elevated white blood cell count, unspecified (3) Chest pain Qualifiers: Chest pain type: chest pain due to myocardial ischemia Ischemic chest pain type: unstable angina pectoris Qualified Code(s): I20.0 - Unstable angina (4) HTN (hypertension) Qualifiers: Hypertension type: essential hypertension Qualified Code(s): I10 - Essential (primary) hypertension (5) CAD (coronary artery disease) Qualifiers: Coronary Disease-Associated Artery/Lesion type: [place] artery [place] vs. transplanted heart: [place] heart Associated angina: without angina Qualified Code(s): I25.10 - Atherosclerotic heart disease of [place] coronary artery without angina pectoris (6) UTI (urinary tract infection) due to urinary indwelling Rubio catheter Qualifiers: Indwelling urinary catheter type: indwelling urethral catheter Encounter type : subsequent encounter Qualified Code(s): T83.511D - Infection and inflammatory reaction due to indwelling urethral catheter, subsequent encounter ; N39.0 - Urinary tract infection, site not specified <Alex Parham - Last Filed: 03/26/18 18:37> (1) HTN (hypertension) Qualifiers: Hypertension type: essential hypertension Qualified Code(s): I10 - Essential (primary) hypertension (2) CAD (coronary artery disease) Qualifiers: Coronary Disease-Associated Artery/Lesion type: [place] artery [place] vs. transplanted heart: [place] heart Associated angina: without angina Qualified Code(s): I25.10 - Atherosclerotic heart disease of [place] coronary artery without angina pectoris (3) UTI (urinary tract infection) due to urinary indwelling Rubio catheter Qualifiers: Indwelling urinary catheter type: indwelling urethral catheter Encounter type : subsequent encounter Qualified Code(s): T83.511D - Infection and inflammatory reaction due to indwelling urethral catheter, subsequent encounter ; N39.0 - Urinary tract infection, site not specified (5) Chest pain Qualifiers: Chest pain type: chest pain due to myocardial ischemia Ischemic chest pain type: unstable angina pectoris Qualified Code(s): I20.0 - Unstable angina (7) Abdominal pain Qualifiers: Abdominal location: generalized Qualified Code(s): R10.84 - Generalized abdominal pain (8) Leukocytosis Qualifiers: Leukocytosis type: unspecified Qualified Code(s): D72.829 - Elevated white blood cell count, unspecified
[2018-03-26] MEDS ORDERED: D5% in Water 1,000 ML IVC PRN (09:07)
[2018-03-26] MEDS ORDERED: *HR* Dextrose 50 % in Water (Syg) 50 ML SYRINGE IVP PRN (09:07)
[2018-03-26] MEDS ORDERED: Dextrose Gel 15 GM/37.5 ML TUBE PO PRN ×2 (09:07)
[2018-03-26] MEDS ORDERED: 0.9 % Sodium Chloride 500 ML IVC ONE (09:49)
[2018-03-26] MEDS ORDERED: 0.9 % Sodium Chloride 1,000 ML ONE (10:27)
[2018-03-26] MEDS: Tiotropium 18 MCG inhalation IH SCH (10:28)
[2018-03-26 10:35] LABS: Albumin 2.6 g/dL (3.5-5.7); Albumin/Globulin Ratio 0.7 (1.1-2.2); Bilirubin,Indirect 0.2 mg/dL (0.0-1.2); Bilirubin,Total 0.2 mg/dL (0.3-1.0); Globulin 3.6 g/dL (2.4-3.5); Total Protein 6.2 g/dL (6.4-8.9)
[2018-03-26] MEDS ORDERED: Aminoglycoside Consult 1 EACH MC ONE (10:35)
[2018-03-26 11:26] LABS: Magnesium 1.4 mg/dL (1.6-2.6)
[2018-03-26] MEDS: Insulin LISPRO 300 UNITS/3 ML VIAL SQ SCH ×2 (11:29→19:22)
--- NOTE | 2018-03-26 12:48 | Event Note ---
Date of Encounter: 03/26/18 Time of Encounter: 12:46 - Cardiology Event Note Sepsis noted, WBC increasing. Troponin now down trending. NSTEMI II in the setting of sepsis. Atypical chest pain. TTE reviewed with LVEF 70%, no segmental wall motion abnormalities noted. Can consider outpatient stress test. Cardiology will sign off, will arrange outpatient follow up.
[2018-03-26] MEDS: 0.9 % Sodium Chloride 1,000 ML IVC SCH (13:47)
[2018-03-26] MEDS ORDERED: Isovue-370 500 ML INFUS..BTL PO ONE (19:08)
[2018-03-26] MEDS: traZODone 50 MG TABLET PO SCH (21:49)
[2018-03-26 23:25] LABS: Adenovirus F 40/41 PCR Not detected (Not detect); Astrovirus PCR Not detected (Not detect); C.difficile Toxin A/B by PCR See reflex test (Not detect); Campylobacter by PCR Not detected (Not detect); Cryptosporidium by PCR Not detected (Not detect); Cyclospora cayetanensis PCR Not detected (Not detect); E. coli O157 by PCR Not detected (Not detect); Entamoeba histolytica PCR Not detected (Not detect); Enteroaggregative E.coli(EAEC) Not detected (Not detect); Enteropathogenic E.coli(EPEC) Not detected (Not detect); Enterotoxigenic E.coli (ETEC) Not detected (Not detect); Giardia lamblia PCR Not detected (Not detect); Norovirus GI/GII PCR Not detected (Not detect); Plesiomonas shigelloides PCR Not detected (Not detect); Rotavirus A PCR Not detected (Not detect); Salmonella PCR Not detected (Not detect); Sapovirus PCR Not detected (Not detect); Shig/EnteroinvasiveE coli EIEC Not detected (Not detect); Shigalike tox-prod E coli STEC Not detected (Not detect); Vibrio PCR Not detected (Not detect); Vibrio cholerae PCR Not detected (Not detect); Yersinia enterocolitica PCR Not detected (Not detect)
[2018-03-27] MEDS: OXYCODONE Oral CONC 10 MG/0.5 ML ORAL.SYG SL PRN ×3 (00:11→21:00)
[2018-03-27] MEDS: MetroNIDAZOLE 500 MG/100 ML 500 MG/100 ML BAG IVPB SCH ×2 (00:12→09:25)
[2018-03-27] MEDS: Insulin LISPRO 300 UNITS/3 ML VIAL SQ SCH ×5 (01:08→20:47)
[2018-03-27 05:04] LABS: Bilirubin,Urine Negative (Negative); Blood,Urine Trace (Negative); Color,Urine Yellow (Yellow); Glucose,Urine (UA) Normal (Normal); Ketones,Urine Negative (Negative); Leukocyte Esterase,Urine Small (Negative); Nitrite,Urine Negative (Negative); PH,Urine 5.5 pH Units (5.0-8.0); Protein,Urine Negative (Neg-Trace); Specific Gravity,Urine 1.023 (1.010-1.025); Urobilinogen,Urine Normal (Normal)
[2018-03-27 05:06] LABS: Nucleated Red Blood Cells 0.3 /100 WBC (0)
[2018-03-27] MEDS: *HR* Heparin 5,000 UNIT/ML VIAL SQ SCH ×3 (05:06→20:59)
[2018-03-27] MEDS: Vancomycin Oral Soln 125 MG/2.5 ML UDC PO SCH ×6 (05:06→20:59)
[2018-03-27] MEDS: cefTRIAXone 2,000 MG in Water for inj. (sterile) 20 ML 20 ML IVPB SCH (05:06)
[2018-03-27 05:07] LABS: Bacteria,Urine None Seen per hpf (None-Few); Hyaline Casts,Urine Few per lpf (None-Few); Squamous Epithelial Cell,Urine Many per lpf (None-Few)
[2018-03-27 05:08] LABS: Hematocrit 36.7 % (35.3-44.9); Hemoglobin 10.6 g/dL (11.5-15.4); Mean Corpuscular HGB Conc 28.9 g/dL (31.6-35.5); Mean Corpuscular Hemoglobin 22.3 pg (28.0-33.3); Mean Corpuscular Volume 77.3 fL (83.0-100.0); Mean Platelet Volume 12.7 fL (9.4-12.4); Platelet Count 460 K/mcL (140-400); Red Blood Count 4.75 M/mcL (3.82-4.97); Red Cell Distribution Width 21.6 % (11.5-14.5)
[2018-03-27 05:09] LABS: Clarity,Urine Clear (Clear)
[2018-03-27] MEDS: 0.9 % Sodium Chloride 1,000 ML IVC SCH ×3 (05:22→20:57)
[2018-03-27 06:13] LABS: Lymphocytes # 2.2 K/mcL (0.6-4.6); Neutrophils # 33.9 K/mcL (1.6-8.9); Platelet Estimate Increased (Normal)
[2018-03-27 06:52] LABS: BUN/Creatinine Ratio 21 (6-26); Blood Urea Nitrogen 13 mg/dL (8-23); Calcium 8.7 mg/dL (8.6-10.3); Carbon Dioxide 23 mEq/L (23-29); Chloride 113 mEq/L (98-107); Glucose 129 mg/dL (70-105); Osmolality,Calculated 298 (280-300); Potassium 3.6 mEq/L (3.5-5.1); Sodium 143 mEq/L (136-145); eGFR For Non-African Americans > 60 (> 60)
[2018-03-27] MEDS: Tiotropium 18 MCG inhalation IH SCH (07:26)
--- NOTE | 2018-03-27 08:48 | General Surgery Consult Note ---
<Keven Ng R - Last Filed: 03/27/18 10:39> Date of Encounter: 03/27/18 Time of Encounter: 07:15 Assessment and Plan (1) Abdominal pain Current Visit: Yes Status: Acute Patient is passing frequent flatus and stool, bowel sounds present. Bowel obstruction is unlikely. CT findings demonstrate cholelithiasis without evidence of acute cholecystitis, no surgical intervention will be planned at this time. LFT's and lipase not elevated, pain does not localize to epigastrum or RUQ, will not get MRCP at this time May increase PO intake as patient tolerates. Continue abx for C. Diff prn antiemetic PPI prophylaxis Medical management per primary team Qualifiers: Abdominal location: generalized Qualified Code(s): R10.84 - Generalized abdominal pain History of Present Illness Consult date: 03/26/18 (Dr. Grover) Reason for consult: other (ileus) Requesting physician: Kathy Acosta History of present illness: Patient was admitted on 03/25/2018 for evaluation of chest pain. Patient has a history of multiple CVA and CAD. Cardiology and Primary team working up chest pain. Yesterday patient complained of abdominal pain was noted to have nausea, vomiting, and watery diarrhea. Patient states that pain is generalized and has been present for 3 months. Associated with nausea, vomiting, and diarrhea. Also complains of weightloss, 50 lbs over the past 6 months. Denies history of colonoscopy or previous bowel obstructions. Patient does have poor eyesight but denies hematochezia, melena, or hematemesis. Patient does have a history of cholelithiasis, but was told she was too high risk for cholecystectomy in the past. CT abdomen and pelvis was obtained, confirming cholelithiasis without acute cholecystitis. GI panel was positive for C. Diff. and patient was placed on contact precautions. At time of examination patient is reporting generalized abdominal pain. Not currently nauseated and would like to start eating/ drinking. Past Med Surg Social Fam HX - Past Medical History Medical history: cancer, CHF, COPD, coronary artery disease, CVA, DVT, diabetes , hyperlipidemia, hypertension, myocardial infarction Additional medical history: GALLSTONES, HERNIA Psychiatric history: anxiety, depression - Past Surgical History Surgical History: breast surgery, cancer surgery, carotid endarterectomy, coronary bypass (CABG), LE vascular intervention Additional surgical history: cervical cancer, breast cancer - Social History Smoking Status: Current every day smoker Packs per day: 1 Smokeless Tobacco Status: No Alcohol use: none Drug use: none - Family History Mother Living Status: Hx Family Cancer: Yes (carcinoma kidney(s)) Hx Family Endocrine Disorder: Yes (DM) Medications and Allergies Aspirin [Lo-Dose Aspirin EC] 81 mg PO DAILY 01/28/17 [History] Cholecalciferol (Vitamin D3) [Vitamin D3] 1,000 unit PO DAILY 01/28/17 [History] Clopidogrel [Plavix] 75 mg PO DAILY 01/28/17 [History] Furosemide [Lasix] 40 mg PO DAILY 01/28/17 [History] Guaifenesin [Mucinex] 600 mg PO BID PRN 01/28/17 [History] Insulin ASPART [Novolog Flexpen] 10 unit SQ TIDAC MDD plus sliding sale [History] Insulin Glargine,Hum.rec.anlog [Lantus Solostar] 25 unit SQ HS 01/28/17 [History ] Ipratropium/Albuterol Neb [Duoneb] 3 ml IH Q6HR PRN 01/28/17 [History] Lisinopril [Zestril] 20 mg PO DAILY 01/28/17 [History] Metformin HCl [Glucophage] 1,000 mg PO BID 01/28/17 [History] Metoprolol [Lopressor] 100 mg PO BID 01/28/17 [History] Ropinirole HCl [Requip] 0.25 - 0.5 mg PO HS 01/28/17 [History] Sertraline [Zoloft] 50 mg PO DAILY 01/28/17 [History] Tiotropium [Spiriva] 1 cap IH DAILY 01/28/17 [History] Acetaminophen [Tylenol] 500 mg PO Q4H PRN 03/26/18 [History] Amitriptyline [Elavil] 25 mg PO HS 03/26/18 [History] Amlodipine Besylate 10 mg PO DAILY 03/26/18 [History] Atorvastatin [Lipitor] 40 mg PO HS 03/26/18 [History] Gabapentin [Neurontin] 300 mg PO BID 03/26/18 [History] Ibuprofen [Ibu] 600 mg PO Q6H PRN 03/26/18 [History] Multivitamin [One Daily Multivitamin] 1 tab PO DAILY 03/26/18 [History] Pantoprazole Sodium [Protonix] 40 mg PO DAILY 03/26/18 [History] SitaGLIPtin [Januvia] 100 mg PO DAILY 03/26/18 [History] Albuterol Neb [Proventil Neb] 2.5 mg IH Q4-6H PRN 03/27/18 [History] Beclomethasone Dip 40mcg REDIH [Qvar 40 mcg REDIHALER] 1 puff IH BID 03/27/18 [ History] Calcium Carb/Magnesium Hydrox [Antacid Extra Strngth Tab Chew] 1 tab PO DAILY [History] 3 Allergy/AdvReac Type Severity Reaction Status Date / Time Iodinated Contrast- Oral and Allergy Anaphylaxis Verified 03/26/18 14:33 IV Dye [Iodinated Contrast Media - Oral and] Review of Systems All systems PM: The remainder of the systems were reviewed and are negative - Constitutional no chills, no fever(s) - Gastrointestinal abdominal pain (generalized), diarrhea, nausea, vomiting, no hematemesis, no hematochezia, no melena General Surgery Exam Initial Vital Signs Temp Pulse Resp BP Pulse Ox 98.9 F 92 20 116/59 92 03/25/18 00:23 03/25/18 00:23 03/25/18 00:23 03/25/18 00:23 03/25/18 00:23 - General physical appearance well nourished, no distress, chronically ill - Eyes other (patient does not track movement well secondary to blindness) - ENT normal mucosa, atraumatic, normocephalic - Neck trachea midline - Respiratory normal expansion, normal respiratory effort - Cardiovascular Cardiovascular exam: Present: RRR - Abdomen Abdomen general surgery: Present: bowel sounds present, soft, tender (diffuse tenderness without localization or focal pain. ). Absent: distended, guarding, rebound Abdominal Tenderness: Present: diffusely - Integumentary Integumentary general surgery: Present: warm and dry - Neurologic Present: CN 2-12 grossly intact, other (Right motor deficient from prior CVA) - Musculoskeletal Present: normal posture - Psychiatric Psychiatric general surgery: Present: A&Ox3, speech is normal, memory intact Exam Initial Vital Signs Temp Pulse Resp BP Pulse Ox 98.9 F 92 20 116/59 92 03/25/18 00:23 03/25/18 00:23 03/25/18 00:23 03/25/18 00:23 03/25/18 00:23 Results - Labs 03/27/18 04:35 03/27/18 04:35 Abnormal lab results WBC 36.1 K/mcL (4.3-11.1) H* 03/27/18 04:35 Hgb 10.6 g/dL (11.5-15.4) L 03/27/18 04:35 MCV 77.3 fL (83.0-100.0) L 03/27/18 04:35 MCH 22.3 pg (28.0-33.3) L 03/27/18 04:35 MCHC 28.9 g/dL (31.6-35.5) L 03/27/18 04:35 RDW 21.6 % (11.5-14.5) H 03/27/18 04:35 Plt Count 460 K/mcL (140-400) H 03/27/18 04:35 MPV 12.7 fL (9.4-12.4) H 03/27/18 04:35 Neutrophils # 33.9 K/mcL (1.6-8.9) H 03/27/18 04:35 Monocytes # 1.8 K/mcL (0.0-1.3) H 03/26/18 06:14 Nucleated RBCs/100 WBC 0.3 /100 WBC (0) H 03/27/18 04:35 Platelet Estimate Increased (Normal) H 03/27/18 04:35 Chloride 113 mEq/L (98-107) H 03/27/18 04:35 Glucose 129 mg/dL (70-105) H 03/27/18 04:35 POC Glucose 216 mg/dL (70-99) H 03/26/18 00:21 Hemoglobin A1c 6.8 % (-5.6) H 03/26/18 06:14 Total Bilirubin 0.2 mg/dL (0.3-1.0) L 03/26/18 09:52 Alkaline Phosphatase 186 Units/L (34-104) H 03/26/18 09:52 Troponin I 0.19 ng/mL (< 0.04) H* 03/25/18 13:33 B-Natriuretic Peptide 185 pg/mL (Less than 100) H 03/25/18 00:59 Serum Total Protein 6.2 g/dL (6.4-8.9) L 03/26/18 09:52 Albumin 2.6 g/dL (3.5-5.7) L 03/26/18 09:52 Globulin 3.6 g/dL (2.4-3.5) H 03/26/18 09:52 Albumin/Globulin Ratio 0.7 (1.1-2.2) L 03/26/18 09:52 Amylase 20 Units/L (29-103) L 03/26/18 09:52 Urine Blood Trace (Negative) H 03/27/18 04:15 Ur Leukocyte Esterase Small (Negative) H 03/27/18 04:15 Urine Microscopic RBC 3-5 per hpf (0-3) H 03/27/18 04:15 Urine Microscopic WBC 5-15 per hpf (0-3) H 03/27/18 04:15 Ur Squamous Epith Cells Many per lpf (None-Few) H 03/27/18 04:15 Ur Culture Indicated? NO. (NO) A 03/27/18 04:15 Stl C. diff Tox B Gene Positive (Negative) A 03/26/18 20:10 Stl C. diff Tox A/B PCR See reflex test (Not detect) A 03/26/18 20:10 Diabetes panel 03/26/18 03/27/18 Range/Units 09:52 04:35 Sodium 143 (136-145) mEq/L Potassium 3.6 D (3.5-5.1) mEq/L Chloride 113 H (98-107) mEq/L Carbon Dioxide 23 (23-29) mEq/L BUN 13 (8-23) mg/dL Creatinine 0.62 (0.60-1.20) mg/dL Glucose 129 H (70-105) mg/dL Calcium 8.7 (8.6-10.3) mg/dL AST 39 (13-39) Units/L ALT 19 (7-52) Units/L Alkaline Phosphatase 186 H (34-104) Units/L Albumin 2.6 L (3.5-5.7) g/dL Calcium panel 03/26/18 03/27/18 Range/Units 09:52 04:35 Calcium 8.7 (8.6-10.3) mg/dL Albumin 2.6 L (3.5-5.7) g/dL Pituitary panel 03/27/18 Range/Units 04:35 Sodium 143 (136-145) mEq/L Potassium 3.6 D (3.5-5.1) mEq/L Chloride 113 H (98-107) mEq/L Carbon Dioxide 23 (23-29) mEq/L BUN 13 (8-23) mg/dL Creatinine 0.62 (0.60-1.20) mg/dL Glucose 129 H (70-105) mg/dL Calcium 8.7 (8.6-10.3) mg/dL Adrenal panel 03/26/18 03/27/18 Range/Units 09:52 04:35 Sodium 143 (136-145) mEq/L Potassium 3.6 D (3.5-5.1) mEq/L Chloride 113 H (98-107) mEq/L Carbon Dioxide 23 (23-29) mEq/L BUN 13 (8-23) mg/dL Creatinine 0.62 (0.60-1.20) mg/dL Glucose 129 H (70-105) mg/dL Calcium 8.7 (8.6-10.3) mg/dL Total Bilirubin 0.2 L (0.3-1.0) mg/dL AST 39 (13-39) Units/L ALT 19 (7-52) Units/L Alkaline Phosphatase 186 H (34-104) Units/L Albumin 2.6 L (3.5-5.7) g/dL All other labs normal. Consult Discharge Plan - Plan Referrals: NONE,PCP [Primary Care Provider] - <Monroe Grover - Last Filed: 03/27/18 14:53> Date of Encounter: 03/27/18 Review of Systems All systems PM: The remainder of the systems were reviewed and are negative General Surgery Exam Initial Vital Signs Temp Pulse Resp BP Pulse Ox 98.9 F 92 20 116/59 92 03/25/18 00:03/25/18 00:03/25/18 00:03/25/18 00:03/25/18 00:23 Exam Initial Vital Signs Temp Pulse Resp BP Pulse Ox 98.9 F 92 20 116/59 92 03/25/18 00:03/25/18 00:03/25/18 00:23 03/25/18 00:23 03/25/18 00:23 Results - Labs 03/27/18 04:35 03/27/18 04:35 Abnormal lab results WBC 36.1 K/mcL (4.3-11.1) H* 03/27/18 04:35 Hgb 10.6 g/dL (11.5-15.4) L 03/27/18 04:35 MCV 77.3 fL (83.0-100.0) L 03/27/18 04:35 MCH 22.3 pg (28.0-33.3) L 03/27/18 04:35 MCHC 28.9 g/dL (31.6-35.5) L 03/27/18 04:35 RDW 21.6 % (11.5-14.5) H 03/27/18 04:35 Plt Count 460 K/mcL (140-400) H 03/27/18 04:35 MPV 12.7 fL (9.4-12.4) H 03/27/18 04:35 Neutrophils # 33.9 K/mcL (1.6-8.9) H 03/27/18 04:35 Monocytes # 1.8 K/mcL (0.0-1.3) H 03/26/18 06:14 Nucleated RBCs/100 WBC 0.3 /100 WBC (0) H 03/27/18 04:35 Platelet Estimate Increased (Normal) H 03/27/18 04:35 Chloride 113 mEq/L (98-107) H 03/27/18 04:35 Glucose 129 mg/dL (70-105) H 03/27/18 04:35 POC Glucose 132 mg/dL (70-99) H 03/27/18 05:26 Hemoglobin A1c 6.8 % (-5.6) H 03/26/18 06:14 Total Bilirubin 0.2 mg/dL (0.3-1.0) L 03/26/18 09:52 Alkaline Phosphatase 186 Units/L (34-104) H 03/26/18 09:52 Troponin I 0.19 ng/mL (< 0.04) H* 03/25/18 13:33 B-Natriuretic Peptide 185 pg/mL (Less than 100) H 03/25/18 00:59 Serum Total Protein 6.2 g/dL (6.4-8.9) L 03/26/18 09:52 Albumin 2.6 g/dL (3.5-5.7) L 03/26/18 09:52 Globulin 3.6 g/dL (2.4-3.5) H 03/26/18 09:52 Albumin/Globulin Ratio 0.7 (1.1-2.2) L 03/26/18 09:52 Amylase 20 Units/L (29-103) L 03/26/18 09:52 Urine Blood Trace (Negative) H 03/27/18 04:15 Ur Leukocyte Esterase Small (Negative) H 03/27/18 04:15 Urine Microscopic RBC 3-5 per hpf (0-3) H 03/27/18 04:15 Urine Microscopic WBC 5-15 per hpf (0-3) H 03/27/18 04:15 Ur Squamous Epith Cells Many per lpf (None-Few) H 03/27/18 04:15 Ur Culture Indicated? NO. (NO) A 03/27/18 04:15 Stl C. diff Tox B Gene Positive (Negative) A 03/26/18 20:10 Stl C. diff Tox A/B PCR See reflex test (Not detect) A 03/26/18 20:10 Diabetes panel 03/27/18 Range/Units 04:35 Sodium 143 (136-145) mEq/L Potassium 3.6 D (3.5-5.1) mEq/L Chloride 113 H (98-107) mEq/L Carbon Dioxide 23 (23-29) mEq/L BUN 13 (8-23) mg/dL Creatinine 0.62 (0.60-1.20) mg/dL Glucose 129 H (70-105) mg/dL Calcium 8.7 (8.6-10.3) mg/dL Calcium panel 03/27/18 Range/Units 04:35 Calcium 8.7 (8.6-10.3) mg/dL Pituitary panel 03/27/18 Range/Units 04:35 Sodium 143 (136-145) mEq/L Potassium 3.6 D (3.5-5.1) mEq/L Chloride 113 H (98-107) mEq/L Carbon Dioxide 23 (23-29) mEq/L BUN 13 (8-23) mg/dL Creatinine 0.62 (0.60-1.20) mg/dL Glucose 129 H (70-105) mg/dL Calcium 8.7 (8.6-10.3) mg/dL Adrenal panel 03/27/18 Range/Units 04:35 Sodium 143 (136-145) mEq/L Potassium 3.6 D (3.5-5.1) mEq/L Chloride 113 H (98-107) mEq/L Carbon Dioxide 23 (23-29) mEq/L BUN 13 (8-23) mg/dL Creatinine 0.62 (0.60-1.20) mg/dL Glucose 129 H (70-105) mg/dL Calcium 8.7 (8.6-10.3) mg/dL All other labs normal. - Attending Attestation I examined this patient and my medical decision-making was reviewed with the Resident Physician. I agree with the documented findings, disposition and treatment plan as described except to the extent set forth below. The patient is seen and evaluated. She is having diarrhea bowel movements. The CAT scan findings of slightly dilated small bowel is more than likely related to her generalized ileus pattern from C. difficile infection. There is no evidence of bowel obstruction. I personally reviewed the CAT scan images and concur with the findings of ileus. Surgery will sign off Monroe Grover MD FACS
[2018-03-27] MEDS: Gabapentin 100 MG CAPSULE PO SCH ×3 (09:24→20:58)
[2018-03-27] MEDS: Aspirin 81 MG TAB.CHEW PO SCH (09:25)
[2018-03-27] MEDS ORDERED: Ipratropium/Albuterol Neb 3 ML IH PRN (10:38)
--- NOTE | 2018-03-27 15:07 | Internal Med Progress Note ---
<Nelson Tsang - Last Filed: 03/27/18 15:03> Hospitalist Progress Note - Encounter Date of Encounter: 03/27/18 Time of Encounter: 15:03 - Subjective Interval History: Patient seen and examined this morning, no acute events overnight Patient complains of continued diarrhea and abdominal pain Surgery consultation and recommending medical management - Exam Vitals: Temp Pulse Resp BP Pulse Ox 97.5 F L 63 16 120/75 99 03/27/18 11:16 03/27/18 11:16 03/27/18 11:16 03/27/18 11:16 03/27/18 11:16 Exam: CONSTITUTIONAL: alert, oriented, in no acute distress, well nourished, well- developed . 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 PSYCH: alert, oriented, cooperative with exam, good eye contact, cognitive function intact - Assessment and Plan (1) Chest pain Current Visit: Yes Status: Suspected Assessment and Plan: Presented for chest pain. Troponin max 0.23, decreased to 0.19. Cardiology consulted and believes this to be due to demand ischemia/ NSTEMI II due to UTI. EKG NSR 01/2017 TTE with LVEF 60-65%, mild-moderate concentric LVH, atypical septal motion consistent with post op status, mild diastolic dysufnction, descending thoracic aorta mildly dilated at 3.76cm, no segmental wall motion abnormalities noted. Plan: - echo, normal EF 70% -Continue telemetry - Continue ASA, statin, Plavix, metoprolol - Cardiology signed off (2) Abdominal pain Current Visit: Yes Status: Acute Assessment and Plan: Diffuse abdominal pain. N/V and diarrhea with a 40lb weight loss over the last couple of months, per outpatient records she has lost 56lbs since October. PMH of breast cancer and cervical cancer. Unsure last colonoscopy, she does not think she has ever had one or an upper endoscopy. RUQ ultrasound showed cholelithiasis without acute chlecystitis and dilated common bile duct 1cm. CT Abd shows mild/moderate dilated loops of bowel - Surgery consulted for possible ileus. Patient has had watery diarrhea, could also be due to enteritis. GI panel pending. She has been taking ibuprofen, so also possibly due to peptic ulcer. Plan: - surgery consulted for ileus, recommending medical management with antiemetic and ppi, advancing diet as tolerated - labs: hepatic panel, amylase pending - lipase, lactic acid within normal limits - gi panel positive for C. diff - blood cultures pending (03/25), Urine cultures pending (03/25) - Zofran for nausea - continue PPI - Diet: NPO for ileus - dispo: able to take adequate PO intake (3) Leukocytosis Current Visit: Yes Status: Acute Assessment and Plan: WBC decreased from 43 to 36. C. diff etiology. Blood and urine cultures pending. Patient does have indwelling rubio so high risk for UTI. Will work up, see plan above. Plan: - discontinued ceftriaxone ( day 3), Vanco IV ( day 1) and Flagyl ( day 1 ) - oral vancomycin 500mg QID (4) HTN (hypertension) Current Visit: Yes Status: Chronic Assessment and Plan: Stable. Lisinopril and metoprolol given Holding lasix, norvasc discontinued (5) CAD (coronary artery disease) Current Visit: Yes Status: Chronic Assessment and Plan: Prior history, CABG x 5. Continue ASA, statin, plavix, Continue telemetry. Cardiology signed off, recommending outpatient stress test and follow up (6) UTI (urinary tract infection) due to urinary indwelling Rubio catheter Current Visit: Yes Status: Acute Assessment and Plan: Patient with leukocytosis. Patient has chronic indwelling Rubio status post CVA. Urine is cloudy, high specific gravity, moderate blood, large leukocyte esterase, too numerous to count white cells. Culture was indicated and pending. Plan: Rubio was changed in the ED, UA obtained after it was changed. Blood cultures ordered and pending. White count likely attributed to C. diff Oral vancomycin started, other antibiotics dscontinued (7) Hypokalemia Current Visit: Yes Status: Acute Assessment and Plan: K+ 2.9 initially.total potassium given 80 meq in the ED. Currently Potassium 3.6. giving potassium. Magnesium 1.3 yesterday, repeat today 1.6. (8) Weight loss Current Visit: Yes Status: Acute Assessment and Plan: Per patient history, she has experienced a 40 pound weight loss in the last 2 months secondary to nausea and vomiting. Per outpatient records 56lb weight loss. Unclear etiology. past medical hx of cervical cancer with hysterectomy and breast cancer. Has not had a mammogram is a couple of years. She has had nv and diarrhea for a couple of of months. CT scan of abd and pelvis did not show a mass. Plan: -Nutrition consulted (9) History of CVA (cerebrovascular accident) Current Visit: Yes Status: Acute Assessment and Plan: CVA X2, Continue ASA and Plavix (10) COPD (chronic obstructive pulmonary disease) Current Visit: Yes Status: Acute Assessment and Plan: Currently not in acute exacerbation. Continue o2 support and home meds. DVT Prophylaxis: 5000 units sq heparin q8hr - Time Spent with Patient Total time spent is greater than 50% in coordination of care (as documented) at patient's floor/unit and/or counseling patient: Internal Medicine: Result - Labs CBC & Chem 7: 03/27/18 04:35 03/27/18 04:35 Labs: Short CBC 03/27/18 Range/Units 04:35 WBC 36.1 H* (4.3-11.1) K/mcL Hgb 10.6 L (11.5-15.4) g/dL Hct 36.7 (35.3-44.9) % Plt Count 460 H (140-400) K/mcL Neutrophils # 33.9 H (1.6-8.9) K/mcL BMP 03/27/18 04:35 Sodium 143 Potassium 3.6 D Chloride 113 H Carbon Dioxide 23 BUN 13 Creatinine 0.62 Glucose 129 H Calcium 8.7 Urine 03/27/18 Range/Units 04:15 Urine Color Yellow (Yellow) Urine Clarity Clear (Clear) Urine pH 5.5 (5.0-8.0) pH Units Ur Specific [place] 1.023 (1.010-1.025) Urine Protein Negative (Neg-Trace) mg/dL Urine Glucose (UA) Normal (Normal) mg/dL - Impressions Impressions Abdomen/Pelvis CT 03/26/18 12:30 IMPRESSION: 1. Findings consistent with presence of bibasilar parenchymal disease, left more so than right with visualization of subtle areas of nodularity within both lung bases. Finding raises possibility of changes of multifocal pneumonia. Short-term follow-up plain film examination would be helpful for re-evaluation. 2. Cholelithiasis. Non-specific moderate-marked distention of the gallbladder. Follow-up gallbladder ultrasound may be helpful for more complete evaluation. 3. Visualization of small focal area of fluid attenuation adjacent to pancreatic head, gallbladder, and duodenal sweep. Exact etiology of the finding is indeterminate. Change associated with inflammatory process involving adjacent structures is in the differential diagnosis. Short-term follow-up examination may be helpful for re-evaluation. 4. Mild prominence of mural thickness of the distal esophagus. Finding is nonspecific; however, raises the possibility of changes of mild esophagitis. 5. Mild prominence of mural thickness of pyloric antrum. Finding could be related to incomplete distention/peristalsis although changes of underlying peptic ulcer disease cannot be excluded. 6. Mild-moderate distention of several loops of small bowel within the left abdomen/pelvis. Finding could be on the basis of ileus. Low-grade partial obstruction is also a possibility. High-grade obstruction is felt to be unlikely due to visualization of contrast material within the colon. 7. Prominence of mural thickness of several loops of small bowel in the right lower quadrant/pelvis. Finding could be related to incomplete distention/peristalsis although changes of underlying enteritis are in the differential diagnosis. 8. No evidence of intraperitoneal free air or abscess. D/ / 03/26/2018 14:32:11 Rell Boothe MD / [email or web address] Interpreting Provider: Rell Boothe MD Consult Discharge Plan - Plan Referrals: NONE,PCP [Primary Care Provider] - <Alex Parham - Last Filed: 03/27/18 17:12> Hospitalist Progress Note - Encounter Date of Encounter: 03/27/18 - Exam Vitals: Temp Pulse Resp BP Pulse Ox 97.5 F L 63 16 120/75 99 03/27/18 11:16 03/27/18 11:16 03/27/18 11:16 03/27/18 11:16 03/27/18 11:16 - Assessment and Plan (1) HTN (hypertension) Current Visit: Yes Status: Chronic (2) CAD (coronary artery disease) Current Visit: Yes Status: Chronic (3) UTI (urinary tract infection) due to urinary indwelling Rubio catheter Current Visit: Yes Status: Acute (4) Hypokalemia Current Visit: Yes Status: Acute (5) Chest pain Current Visit: Yes Status: Suspected (6) Weight loss Current Visit: Yes Status: Acute (7) Abdominal pain Current Visit: Yes Status: Acute (8) Leukocytosis Current Visit: Yes Status: Acute (9) History of CVA (cerebrovascular accident) Current Visit: Yes Status: Acute (10) COPD (chronic obstructive pulmonary disease) Current Visit: Yes Status: Acute - Time Spent with Patient Total time spent is greater than 50% in coordination of care (as documented) at patient's floor/unit and/or counseling patient: Internal Medicine: Result - Labs CBC & Chem 7: 03/27/18 04:35 03/27/18 04:35 Labs: Short CBC 03/27/18 Range/Units 04:35 WBC 36.1 H* (4.3-11.1) K/mcL Hgb 10.6 L (11.5-15.4) g/dL Hct 36.7 (35.3-44.9) % Plt Count 460 H (140-400) K/mcL Neutrophils # 33.9 H (1.6-8.9) K/mcL BMP 03/27/18 04:35 Sodium 143 Potassium 3.6 D Chloride 113 H Carbon Dioxide 23 BUN 13 Creatinine 0.62 Glucose 129 H Calcium 8.7 Urine 03/27/18 Range/Units 04:15 Urine Color Yellow (Yellow) Urine Clarity Clear (Clear) Urine pH 5.5 (5.0-8.0) pH Units Ur Specific [place] 1.023 (1.010-1.025) Urine Protein Negative (Neg-Trace) mg/dL Urine Glucose (UA) Normal (Normal) mg/dL - Impressions Impressions Abdomen/Pelvis CT 03/26/18 12:30 IMPRESSION: 1. Findings consistent with presence of bibasilar parenchymal disease, left more so than right with visualization of subtle areas of nodularity within both lung bases. Finding raises possibility of changes of multifocal pneumonia. Short-term follow-up plain film examination would be helpful for re-evaluation. 2. Cholelithiasis. Non-specific moderate-marked distention of the gallbladder. Follow-up gallbladder ultrasound may be helpful for more complete evaluation. 3. Visualization of small focal area of fluid attenuation adjacent to pancreatic head, gallbladder, and duodenal sweep. Exact etiology of the finding is indeterminate. Change associated with inflammatory process involving adjacent structures is in the differential diagnosis. Short-term follow-up examination may be helpful for re-evaluation. 4. Mild prominence of mural thickness of the distal esophagus. Finding is nonspecific; however, raises the possibility of changes of mild esophagitis. 5. Mild prominence of mural thickness of pyloric antrum. Finding could be related to incomplete distention/peristalsis although changes of underlying peptic ulcer disease cannot be excluded. 6. Mild-moderate distention of several loops of small bowel within the left abdomen/pelvis. Finding could be on the basis of ileus. Low-grade partial obstruction is also a possibility. High-grade obstruction is felt to be unlikely due to visualization of contrast material within the colon. 7. Prominence of mural thickness of several loops of small bowel in the right lower quadrant/pelvis. Finding could be related to incomplete distention/peristalsis although changes of underlying enteritis are in the differential diagnosis. 8. No evidence of intraperitoneal free air or abscess. D/ / 03/26/2018 14:32:11 Rell Boothe MD / [email or web address] Interpreting Provider: Rell Boothe MD - Attending Attestation I examined this patient and my medical decision-making was reviewed with the Resident Physician Dr. Tsang. I agree with the documented findings, disposition and treatment plan as described except to the extent set forth below. Ms. Lauren is a 63 y/o F admitted here with sepsis due to multi focal pneumonia. Pt also c/o abdominal pain. Her CT of Abd today which showed multi focal pneumonia, non specific moderate distension of gallbladder, mild to moderate distention of small bowel several loops concerning for obstruction. Her C. Diff came back as positive. Pt states she is feeling better. Denied any CP/ SOB. No cough. Still has 2-3 loose watery BM. Gen: A, A, O x 3 Chest : Diminished BS b/l Heart: S1S2+ Tachy Abd: Soft, moderate discomfort in lower abdomen Back: stage 1 pressure ulcer a/p 1. Acute C. Diff colitis WBC still critically elevated started on Vanc 500mg QID held all other abx probiotic 2. Cholelithiass with no cholecystitis consulted surgery.. no intervention needed now 3. Sepsis with Pneumonia and C. Diff colitis Improving Cont IVF unable to give abx for PNA due to C. Diff inf will be very cautious about abx will f/u on sputum cx, Gram staining holding other abx for now IV hydration IV analgesics <Nelson Tsang - Last Filed: 03/27/18 15:03> (1) Chest pain Qualifiers: Chest pain type: chest pain due to myocardial ischemia Ischemic chest pain type: unstable angina pectoris Qualified Code(s): I20.0 - Unstable angina (2) Abdominal pain Qualifiers: Abdominal location: generalized Qualified Code(s): R10.84 - Generalized abdominal pain (3) Leukocytosis Qualifiers: Leukocytosis type: unspecified Qualified Code(s): D72.829 - Elevated white blood cell count, unspecified (4) HTN (hypertension) Qualifiers: Hypertension type: essential hypertension Qualified Code(s): I10 - Essential (primary) hypertension (5) CAD (coronary artery disease) Qualifiers: Coronary Disease-Associated Artery/Lesion type: [place] artery [place] vs. transplanted heart: [place] heart Associated angina: without angina Qualified Code(s): I25.10 - Atherosclerotic heart disease of [place] coronary artery without angina pectoris (6) UTI (urinary tract infection) due to urinary indwelling Rubio catheter Qualifiers: Indwelling urinary catheter type: indwelling urethral catheter Encounter type : subsequent encounter Qualified Code(s): T83.511D - Infection and inflammatory reaction due to indwelling urethral catheter, subsequent encounter ; N39.0 - Urinary tract infection, site not specified <Alex Parham - Last Filed: 03/27/18 17:12> (1) HTN (hypertension) Qualifiers: Hypertension type: essential hypertension Qualified Code(s): I10 - Essential (primary) hypertension (2) CAD (coronary artery disease) Qualifiers: Coronary Disease-Associated Artery/Lesion type: [place] artery [place] vs. transplanted heart: [place] heart Associated angina: without angina Qualified Code(s): I25.10 - Atherosclerotic heart disease of [place] coronary artery without angina pectoris (3) UTI (urinary tract infection) due to urinary indwelling Rubio catheter Qualifiers: Indwelling urinary catheter type: indwelling urethral catheter Encounter type : subsequent encounter Qualified Code(s): T83.511D - Infection and inflammatory reaction due to indwelling urethral catheter, subsequent encounter ; N39.0 - Urinary tract infection, site not specified (5) Chest pain Qualifiers: Chest pain type: chest pain due to myocardial ischemia Ischemic chest pain type: unstable angina pectoris Qualified Code(s): I20.0 - Unstable angina (7) Abdominal pain Qualifiers: Abdominal location: generalized Qualified Code(s): R10.84 - Generalized abdominal pain (8) Leukocytosis Qualifiers: Leukocytosis type: unspecified Qualified Code(s): D72.829 - Elevated white blood cell count, unspecified
[2018-03-27] MEDS: Beclomethasone 80mcg MDI IH SCH (20:09)
[2018-03-27] MEDS: Metoprolol 100 MG TABLET PO SCH (20:58)
[2018-03-27] MEDS: traZODone 50 MG TABLET PO SCH (20:58)
[2018-03-27] MEDS ORDERED: amLODIPine 5 MG TABLET PO SCH (21:00)
[2018-03-28] MEDS: *HR* Heparin 5,000 UNIT/ML VIAL SQ SCH ×3 (06:05→21:24)
[2018-03-28] MEDS: 0.9 % Sodium Chloride 1,000 ML IVC SCH (06:07)
[2018-03-28 07:01] LABS: BUN/Creatinine Ratio 14 (6-26); Blood Urea Nitrogen 7 mg/dL (8-23); Carbon Dioxide 26 mEq/L (23-29); Chloride 107 mEq/L (98-107); Glucose 106 mg/dL (70-105); Osmolality,Calculated 292 (280-300); Potassium 3.3 mEq/L (3.5-5.1); Sodium 142 mEq/L (136-145); eGFR For Non-African Americans > 60 (> 60)
[2018-03-28] MEDS: Beclomethasone 80mcg MDI IH SCH ×3 (07:25→19:39)
[2018-03-28] MEDS: Tiotropium 18 MCG inhalation IH SCH ×2 (07:25→07:28)
[2018-03-28] MEDS: Insulin LISPRO 300 UNITS/3 ML VIAL SQ SCH ×4 (07:42→21:23)
[2018-03-28 08:05] LABS: Basophils % 0.3 %; Nucleated Red Blood Cells 0.7 /100 WBC (0)
[2018-03-28 08:06] LABS: Basophils # 0.1 K/mcL (0.0-0.2); Eosinophils # 0.2 K/mcL (0.0-0.6); Eosinophils % 0.6 %; Hematocrit 35.3 % (35.3-44.9); Hemoglobin 10.2 g/dL (11.5-15.4); Immature Granulocytes % 2.8 % (0-4); Lymphocytes # 2.8 K/mcL (0.6-4.6); Lymphocytes % 8.3 %; Mean Corpuscular HGB Conc 28.9 g/dL (31.6-35.5); Mean Corpuscular Hemoglobin 22.5 pg (28.0-33.3); Mean Corpuscular Volume 77.8 fL (83.0-100.0); Mean Platelet Volume 12.8 fL (9.4-12.4); Monocytes # 1.4 K/mcL (0.0-1.3); Monocytes % 4.2 %; Neutrophils # 28.2 K/mcL (1.6-8.9); Platelet Count 444 K/mcL (140-400); Red Blood Count 4.54 M/mcL (3.82-4.97); Segmented Neutrophils % 83.8 %
[2018-03-28 08:21] LABS: Calcium 8.8 mg/dL (8.6-10.3)
[2018-03-28 09:16] LABS: Anisocytosis 2+ (Not Present); Hypochromasia Present (Not Present); Microcytosis Present (Not Present); Polychromasia 1+ (Not Present)
[2018-03-28 09:17] LABS: Platelet Estimate Normal (Normal)
[2018-03-28] MEDS: Gabapentin 100 MG CAPSULE PO SCH ×3 (09:21→20:28)
[2018-03-28] MEDS: Aspirin 81 MG TAB.CHEW PO SCH (09:21)
[2018-03-28] MEDS: Magnesium Oxide 400 MG TABLET PO SCH (09:22)
[2018-03-28] MEDS: Lisinopril 20 MG TABLET PO SCH (09:24)
[2018-03-28] MEDS: Metoprolol 100 MG TABLET PO SCH ×2 (09:26→20:28)
[2018-03-28] MEDS: Vancomycin Oral Soln 125 MG/2.5 ML UDC PO SCH ×4 (10:42→21:18)
--- NOTE | 2018-03-28 12:47 | Internal Med Progress Note ---
<Kathy Acosta - Last Filed: 03/28/18 16:10> Hospitalist Progress Note - Encounter Date of Encounter: 03/28/18 Time of Encounter: 09:45 - Subjective Interval History: Ms. Lauren is a 63 year old female with a relevant past medical history of COPD, HTN, CVA x2 s/p CEA, DM2, CAD s/p CABG 2004, legally blind, PVD s/p fem- tib bypass who presented to [facility] with complaints of abdominal and chest pain. Ms. Ryder diffuse abdominal pain is still present. Her O2 need was increased last night from 3L NC to 4L NC. Patient states that she has had productive cough , but does have a chronic cough. - Exam Vitals: Temp Pulse Resp BP Pulse Ox 99.6 F 78 18 151/66 87 03/28/18 11:03 03/28/18 11:03 03/28/18 11:03 03/28/18 11:03 03/28/18 11:03 Exam: CONSTITUTIONAL: alert, oriented, in no acute distress, well nourished, well- developed . 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 PSYCH: alert, oriented, cooperative with exam, good eye contact, cognitive function intact - Assessment and Plan (1) C. difficile colitis Current Visit: Yes Status: Acute Assessment and Plan: GI panel: c-diff positive. CT abdomen shows enteritis. Plan: - oral vanco ( day 2) - blood cultures pending (03/25) NGTD - Zofran for nausea - stopped PPI - started probiotics - Diet: full liquid diet - dispo: able to take adequate PO intake, improvement of abdominal pain and SOB (2) Leukocytosis Current Visit: Yes Status: Acute Assessment and Plan: WBC initially 43, continues to decrease. Blood cx and urine cx NGTD. Due to c- diff infection. See plan above. Plan: - Antibiotics: started cefepime ( day 1) and oral vancomycin 500mg QID (day 2) - discontinued ceftriaxone ( day 3), Vanco IV ( day 1) and Flagyl ( day 1 ) (3) Pneumonia Current Visit: Yes Status: Resolved Assessment and Plan: CAP, came from home. CT abd/pelvis showed multifocal pneumonia, patient has required increase O2 need today. WBC improving. Plan: - starting Cefepime (day 1) - continue O2 support (4) COPD (chronic obstructive pulmonary disease) Current Visit: Yes Status: Acute Assessment and Plan: Concern for possible COPD exacerbation as patient's O2 demand is increasing, in the setting of pneumonia. Plan: - Duoneb Q6H prn - O2 supplement as needed, NC 4L currently - continue Qvar, Spiriva - see plan above for pneumonia (5) HTN (hypertension) Current Visit: Yes Status: Chronic Assessment and Plan: Increasing Continue home meds: Lisinopril and metoprolol continued, norvasc discontinued Holding lasix as patient has been on fluids. (6) CAD (coronary artery disease) Current Visit: Yes Status: Chronic Assessment and Plan: Prior history, CABG x 5. Continue ASA, statin, plavix, Continue telemetry. Cardiology signed off, recommending outpatient stress test and follow up (7) Hypokalemia Current Visit: Yes Status: Acute Assessment and Plan: K+ 2.9 initially.total potassium given 80 meq in the ED. Potassium= 3.3 today, given KCl 40meq today. (8) Chest pain Current Visit: Yes Status: Resolved Assessment and Plan: Presented for chest pain. Troponin max 0.23, decreased to 0.19. Cardiology consulted and believes this to be due to demand ischemia/ NSTEMI II due to UTI. EKG NSR 01/2017 TTE with LVEF 60-65%, mild-moderate concentric LVH, atypical septal motion consistent with post op status, mild diastolic dysufnction, descending thoracic aorta mildly dilated at 3.76cm, no segmental wall motion abnormalities noted. Stress test outpatient Plan: - echo, normal EF 70% -Continue telemetry, consider d/c tomorrow - Continue ASA, statin, Plavix, metoprolol - Cardiology signed off, stress test outpatient (9) History of CVA (cerebrovascular accident) Current Visit: Yes Status: Acute Assessment and Plan: CVA X2, Continue ASA and Plavix (10) Sepsis Current Visit: No Status: Resolved Assessment and Plan: Currently resolved as patient's heart rate which is within normal limits. Patient's white blood cell count is still elevated. Patient's fluids were discontinued today. Patient has COPD with worsening oxygen demand today. Concern for possible fluid overload vs. worsening pneumonia. (11) Cholelithiasis Current Visit: Yes Status: Acute Assessment and Plan: Surgery consulted, no acute cholecystitis. No need for surgical intervention. (12) Weight loss Current Visit: Yes Status: Acute Assessment and Plan: Per patient history, she has experienced a 40 pound weight loss in the last 2 months secondary to nausea and vomiting. Per outpatient records 56lb weight loss. Unclear etiology. past medical hx of cervical cancer with hysterectomy and breast cancer. Has not had a mammogram is a couple of years. She has had nv and diarrhea for a couple of of months. CT scan of abd and pelvis did not show a mass. Plan: -Nutrition consulted, recommended Ensure Enlive twice a day (13) Hypomagnesemia Current Visit: Yes Status: Acute Assessment and Plan: Yesterday, Mg 1.6, given 2mg IV, Repeat Mg tomorrow (14) Chronic anemia Current Visit: Yes Status: Acute Assessment and Plan: Chronic microcytic anemia Most likely due to iron deficiency. Iron panel and ferritin pending. (15) Diabetes type 2, controlled Current Visit: Yes Status: Acute Assessment and Plan: Holding home meds. Currently well controlled on LSSI. DVT Prophylaxis: Heparin SQ - Time Spent with Patient Total time spent is greater than 50% in coordination of care (as documented) at patient's floor/unit and/or counseling patient: Internal Medicine: Result - Labs CBC & Chem 7: 03/28/18 05:01 03/28/18 05:01 Labs: Short CBC 03/28/18 Range/Units 05:01 WBC 33.7 H* (4.3-11.1) K/mcL Hgb 10.2 L (11.5-15.4) g/dL Hct 35.3 (35.3-44.9) % Plt Count 444 H (140-400) K/mcL Neutrophils # 28.2 H (1.6-8.9) K/mcL BMP 03/28/18 05:01 Sodium 142 Potassium 3.3 L Chloride 107 Carbon Dioxide 26 BUN 7 L Creatinine 0.51 L Glucose 106 H Calcium 8.8 Consult Discharge Plan - Plan Referrals: Kathy Acosta DO [Resident] - <Alex Parham - Last Filed: 03/28/18 17:52> Hospitalist Progress Note - Encounter Date of Encounter: 03/28/18 - Exam Vitals: Temp Pulse Resp BP Pulse Ox 98.9 F 83 18 165/69 86 03/28/18 14:57 03/28/18 14:57 03/28/18 14:57 03/28/18 14:57 03/28/18 14:57 - Assessment and Plan (1) Sepsis Current Visit: No Status: Resolved (2) HTN (hypertension) Current Visit: Yes Status: Chronic (3) CAD (coronary artery disease) Current Visit: Yes Status: Chronic (4) Hypokalemia Current Visit: Yes Status: Acute (5) Chest pain Current Visit: Yes Status: Resolved (6) Weight loss Current Visit: Yes Status: Acute (7) Leukocytosis Current Visit: Yes Status: Acute (8) History of CVA (cerebrovascular accident) Current Visit: Yes Status: Acute (9) COPD (chronic obstructive pulmonary disease) Current Visit: Yes Status: Acute (10) Pneumonia Current Visit: Yes Status: Resolved (11) C. difficile colitis Current Visit: Yes Status: Acute (12) Cholelithiasis Current Visit: Yes Status: Acute (13) Hypomagnesemia Current Visit: Yes Status: Acute (14) Chronic anemia Current Visit: Yes Status: Acute (15) Diabetes type 2, controlled Current Visit: Yes Status: Acute - Time Spent with Patient Total time spent is greater than 50% in coordination of care (as documented) at patient's floor/unit and/or counseling patient: Internal Medicine: Result - Labs CBC & Chem 7: 03/28/18 05:01 03/28/18 05:01 Labs: Short CBC 03/28/18 Range/Units 05:01 WBC 33.7 H* (4.3-11.1) K/mcL Hgb 10.2 L (11.5-15.4) g/dL Hct 35.3 (35.3-44.9) % Plt Count 444 H (140-400) K/mcL Neutrophils # 28.2 H (1.6-8.9) K/mcL BMP 03/28/18 05:01 Sodium 142 Potassium 3.3 L Chloride 107 Carbon Dioxide 26 BUN 7 L Creatinine 0.51 L Glucose 106 H Calcium 8.8 - Impressions Impressions Chest X-Ray 03/28/18 16:39 IMPRESSION: 1. Bilateral airspace opacities which may represent pulmonary edema or multifocal pneumonia, new since prior examination. 2. Probable skin fold overlying the right hemithorax with no definite pneumothorax. Repeat examination may be considered for confirmation. D/ / Ashlee Hargrove MD / Ashlee Hargrove MD Interpreting Provider: Ashlee Hargrove MD - Attending Attestation I examined this patient and my medical decision-making was reviewed with the Resident Physician Dr. Acosta. I agree with the documented findings, disposition and treatment plan as described except to the extent set forth below. Ms. Lauren is a 63 y/o F admitted here with sepsis due to multi focal pneumonia. Pt also c/o abdominal pain. Her CT of Abd today which showed multi focal pneumonia, non specific moderate distension of gallbladder, mild to moderate distention of small bowel several loops concerning for obstruction. Her C. Diff came back as positive. Pt states she is feeling better. Denied any CP/ SOB. No cough. Still has 2-3 loose watery BM. Gen: A, A, O x 3 Chest : Diminished BS b/l Heart: S1S2+ RRR Abd: Soft, moderate discomfort in lower abdomen Back: stage 1 pressure ulcer a/p 1. Acute C. Diff colitis WBC still critically elevated started on Vanc 500mg QID held all other abx probiotic 2. Cholelithiass with no cholecystitis consulted surgery.. no intervention needed now 3. Sepsis with Pneumonia and C. Diff colitis 4. Acute hypoxic resp failure Currently on 4 lit O2 Resumed abx Cefepime due to worsening resp failure probiotic Improving will f/u on sputum cx, Gram staining IV analgesics IV Lasix x 1dose <Kathy Acosta - Last Filed: 03/28/18 16:10> (2) Leukocytosis Qualifiers: Leukocytosis type: unspecified Qualified Code(s): D72.829 - Elevated white blood cell count, unspecified (3) Pneumonia Qualifiers: Pneumonia type: due to unspecified organism Laterality: bilateral Lung location: lower lobe of lung Qualified Code(s): J18.1 - Lobar pneumonia, unspecified organism (4) COPD (chronic obstructive pulmonary disease) Qualifiers: COPD type: chronic bronchitis Chronic bronchitis type: mucopurulent Qualified Code(s): J41.1 - Mucopurulent chronic bronchitis (5) HTN (hypertension) Qualifiers: Hypertension type: essential hypertension Qualified Code(s): I10 - Essential (primary) hypertension (6) CAD (coronary artery disease) Qualifiers: Coronary Disease-Associated Artery/Lesion type: koi artery [place] vs. transplanted heart: koi heart Associated angina: without angina Qualified Code(s): I25.10 - Atherosclerotic heart disease of koi coronary artery without angina pectoris (8) Chest pain Qualifiers: Chest pain type: chest pain due to myocardial ischemia Ischemic chest pain type: unstable angina pectoris Qualified Code(s): I20.0 - Unstable angina (10) Sepsis Qualifiers: Sepsis type: sepsis due to unspecified organism Qualified Code(s): A41.9 - Sepsis, unspecified organism (11) Cholelithiasis Qualifiers: Cholelithiasis location: gallbladder Cholecystitis presence: without cholecystitis Biliary obstruction: without biliary obstruction Qualified Code( s): K80.20 - Calculus of gallbladder without cholecystitis without obstruction (15) Diabetes type 2, controlled Qualifiers: 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 helper insulin use: with jail use Diabetes mellitus complication status: with hyperglycemia Qualified Code(s): E11.65 - Type 2 diabetes mellitus with hyperglycemia; Z79.4 - senior care (current) use of insulin <Alex Parham - Last Filed: 03/28/18 17:52> (1) Sepsis Qualifiers: Sepsis type: sepsis due to unspecified organism Qualified Code(s): A41.9 - Sepsis, unspecified organism (2) HTN (hypertension) Qualifiers: Hypertension type: essential hypertension Qualified Code(s): I10 - Essential (primary) hypertension (3) CAD (coronary artery disease) Qualifiers: Coronary Disease-Associated Artery/Lesion type: koi artery [place] vs. transplanted heart: koi heart Associated angina: without angina Qualified Code(s): I25.10 - Atherosclerotic heart disease of koi coronary artery without angina pectoris (5) Chest pain Qualifiers: Chest pain type: chest pain due to myocardial ischemia Ischemic chest pain type: unstable angina pectoris Qualified Code(s): I20.0 - Unstable angina (7) Leukocytosis Qualifiers: Leukocytosis type: unspecified Qualified Code(s): D72.829 - Elevated white blood cell count, unspecified (9) COPD (chronic obstructive pulmonary disease) Qualifiers: COPD type: chronic bronchitis Chronic bronchitis type: mucopurulent Qualified Code(s): J41.1 - Mucopurulent chronic bronchitis (10) Pneumonia Qualifiers: Pneumonia type: due to unspecified organism Laterality: bilateral Lung location: lower lobe of lung Qualified Code(s): J18.1 - Lobar pneumonia, unspecified organism (12) Cholelithiasis Qualifiers: Cholelithiasis location: gallbladder Cholecystitis presence: without cholecystitis Biliary obstruction: without biliary obstruction Qualified Code( s): K80.20 - Calculus of gallbladder without cholecystitis without obstruction (15) Diabetes type 2, controlled Qualifiers: Diabetes mellitus jail insulin use: with jail use Diabetes mellitus complication status: with hyperglycemia Qualified Code(s): E11.65 - Type 2 diabetes mellitus with hyperglycemia; Z79.4 - 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
[2018-03-28] MEDS: Lactobacillus 1 EACH CAP.SPRINK PO SCH ×2 (15:50→20:28)
[2018-03-28] MEDS ORDERED: Furosemide 40 MG/4 ML VIAL IVP ONE (17:22)
[2018-03-28] MEDS: Cefepime HCl 2,000 MG in Water for inj. (sterile) 20 ML 20 ML IVP SCH (17:38)
[2018-03-28] MEDS ORDERED: Ipratropium/Albuterol Neb 3 ML IH PRN (18:46)
[2018-03-28] MEDS: Ipratropium/Albuterol Neb 3 ML IH SCH ×2 (19:39→23:26)
[2018-03-28] MEDS ORDERED: methylPREDNISolone 125 MG/2 ML VIAL IVP ONE (19:55)
[2018-03-28 20:15] LABS: ABG Base Excess 3 mEq/L (-2 to 3); ABG HCO3 28 mEq/L (21-27); ABG Oxygen Saturation 88 % (95-98); ABG PCO2 43 mmHg (35-45); ABG PH 7.42 pH Units (7.32-7.45); ABG PO2 55 mmHg (85-104); ABG TCO2 30 mEq/L (20-26)
[2018-03-28] MEDS: Acetaminophen 325 MG TABLET PO PRN (20:28)
[2018-03-28] MEDS: traZODone 50 MG TABLET PO SCH (21:16)
[2018-03-29] MEDS: Ipratropium/Albuterol Neb 3 ML IH SCH ×5 (04:13→20:15)
[2018-03-29] MEDS: Cefepime HCl 2,000 MG in Water for inj. (sterile) 20 ML 20 ML IVP SCH (05:41)
[2018-03-29] MEDS: *HR* Heparin 5,000 UNIT/ML VIAL SQ SCH ×3 (05:41→22:18)
[2018-03-29 06:17] LABS: Basophils # 0.1 K/mcL (0.0-0.2); Basophils % 0.2 %; Immature Granulocytes % 1.1 % (0-4); Lymphocytes # 1.5 K/mcL (0.6-4.6); Lymphocytes % 4.5 %; Mean Corpuscular HGB Conc 29.4 g/dL (31.6-35.5); Mean Corpuscular Hemoglobin 22.2 pg (28.0-33.3); Mean Corpuscular Volume 75.4 fL (83.0-100.0); Mean Platelet Volume 12.5 fL (9.4-12.4); Monocytes # 0.4 K/mcL (0.0-1.3); Monocytes % 1.1 %; Neutrophils # 31.4 K/mcL (1.6-8.9); Platelet Count 437 K/mcL (140-400); Red Blood Count 4.51 M/mcL (3.82-4.97); Red Cell Distribution Width 20.9 % (11.5-14.5); Segmented Neutrophils % 93.1 %
[2018-03-29 07:06] LABS: Iron < 10 mcg/dL (50-170); Transferrin 158 mg/dL (203-362)
[2018-03-29 07:14] LABS: BUN/Creatinine Ratio 19 (6-26); Blood Urea Nitrogen 12 mg/dL (8-23); Calcium 8.2 mg/dL (8.6-10.3); Carbon Dioxide 28 mEq/L (23-29); Chloride 107 mEq/L (98-107); Glucose 237 mg/dL (70-105); Osmolality,Calculated 301 (280-300); Potassium 3.9 mEq/L (3.5-5.1); Sodium 142 mEq/L (136-145); eGFR For Non-African Americans > 60 (> 60)
[2018-03-29] MEDS: Beclomethasone 80mcg MDI IH SCH ×2 (07:38→20:15)
[2018-03-29] MEDS: Tiotropium 18 MCG inhalation IH SCH (07:39)
[2018-03-29] MEDS ORDERED: Furosemide 20 MG/2 ML VIAL IVP ONE (08:27)
[2018-03-29] MEDS ORDERED: Piperacillin/Tazobactam 3.375 GM in 0.9 % Sodium Chloride Mini Bag 100 ML IVPB SCH ×2 (09:00→16:00)
--- NOTE | 2018-03-29 09:00 | Internal Med Progress Note ---
<DaveKathy - Last Filed: 03/29/18 08:57> Hospitalist Progress Note - Encounter Date of Encounter: 03/29/18 Time of Encounter: 08:57 - Subjective Interval History: Ms. Lauren is a 63 year old female with a relevant past medical history of COPD, HTN, CVA x2 s/p CEA, DM2, CAD s/p CABG 2004, legally blind, PVD s/p fem- tib bypass who presented to [facility] with complaints of abdominal and chest pain. Yesterday afternoon she had hypoxia on 3 L. Patient was placed on oxygen mask 8 L and has been weaned to 5 L. She is placed on CPAP overnight. Given one dose of Solumedrol. She feels like the breathing treatments have been helping. She also was febrile to 101F yesterday. This morning, overall she feels better than she did yesterday and compared to when she can and to the hospital. Ms. Ryder diffuse abdominal pain is still present but has improved from yesterday. Patient had diarrhea 4 times yesterday. - Exam Vitals: Temp Pulse Resp BP Pulse Ox 98.7 F 75 15 102/66 93 03/29/18 07:44 03/29/18 07:44 03/29/18 07:44 03/29/18 07:44 03/29/18 07:44 Exam: CONSTITUTIONAL: alert, oriented, in no acute distress, well nourished, well- developed . HEAD: facial hair on chin HEART: normal, regular rate and rhythm, no murmurs, S1, S2 normal LUNGS: On Oxymask 5L, scattered rhonchi, no crackles ABDOMEN: soft, tender diffusely, nondistended, no masses palpable,, no guarding or rigidity EXTREMITIES: lower extremities without swelling, decrease strength in L lower extremity unable to lift foot against gravity but can lift knee against gravity lower , R lower extremity 5/5, R arm able to lift against gravity but week racebook writer strength , 5/5 strength left arm, SKIN: Skin warm and dry, no rashes, no jaundice, NEUROLOGIC: no tremor, no rigidity, alert and oriented. PSYCH: alert, oriented, cooperative with exam, good eye contact, cognitive function intact - Assessment and Plan (1) C. difficile colitis Current Visit: Yes Status: Acute Assessment and Plan: GI panel: c-diff positive. CT abdomen shows enteritis. Plan: - oral vanco ( day 3) - blood cultures pending (03/25) NGTD - Zofran for nausea - stopped PPI - started probiotics - Diet: diabetic, cardiac regular diet with supplemental ensure enlive BID - dispo: able to take adequate PO intake, improvement of abdominal pain and SOB (2) Pneumonia Current Visit: Yes Status: Resolved Assessment and Plan: CAP, came from home. CT abd/pelvis showed multifocal pneumonia, patient has required increase O2 need today. WBC same as yesterday with a fever and increase oxygen demand. Plan: - started Zosyn today (day 1), stopped Cefepime after 1 day - strep, legionella and mycoplasma pending - resp panel pending - continue O2 support - duonebs increased to Q4H linda, Q2H prn (3) COPD (chronic obstructive pulmonary disease) Current Visit: Yes Status: Acute Assessment and Plan: Acute COPD exacerbation as patient's O2 demand is increasing, in the setting of pneumonia. Will give 1 dose of Lasix 20mg IV to see if worsening SOB is due to fluid overload as patient was on MIVF yesterday. Plan: - 1 dose of Lasix 30mg IV -d/c MIVF - Duoneb Q4H linda, Q2H prn - O2 supplement as needed, Oxymask 5 L currently - continue Qvar, Spiriva - see plan above for pneumonia (4) HTN (hypertension) Current Visit: Yes Status: Chronic Assessment and Plan: Increasing Continue home meds: Lisinopril and metoprolol continued, norvasc discontinued. Holding oral Lasix. Given 1 dose of Lasix 20mg IV today (5) Hypokalemia Current Visit: Yes Status: Acute Assessment and Plan: K+ 2.9 initially.total potassium given 80 meq in the ED. Potassium= 3.9 today. Continue home potassium 20meq. (6) CAD (coronary artery disease) Current Visit: Yes Status: Chronic Assessment and Plan: Prior history, CABG x 5. Continue ASA, statin, plavix, Continue telemetry. Cardiology signed off, recommending outpatient stress test and follow up (7) Chest pain Current Visit: Yes Status: Resolved Assessment and Plan: Presented for chest pain. Troponin max 0.23, decreased to 0.19. Cardiology consulted and believes this to be due to demand ischemia/ NSTEMI II due to UTI. EKG NSR 01/2017 TTE with LVEF 60-65%, mild-moderate concentric LVH, atypical septal motion consistent with post op status, mild diastolic dysufnction, descending thoracic aorta mildly dilated at 3.76cm, no segmental wall motion abnormalities noted. Stress test outpatient Plan: - echo, normal EF 70% -Continue telemetry, consider d/c tomorrow - Continue ASA, statin, Plavix, metoprolol - Cardiology signed off, stress test outpatient (8) History of CVA (cerebrovascular accident) Current Visit: Yes Status: Acute Assessment and Plan: CVA X2, Continue ASA and Plavix (9) Sepsis Current Visit: No Status: Resolved Assessment and Plan: Currently resolved as patient's heart rate which is within normal limits. Patient's white blood cell count is still elevated. Patient's fluids were discontinued today. Patient has COPD with worsening oxygen demand today. Concern for possible fluid overload vs. worsening pneumonia. See plan above. (10) Cholelithiasis Current Visit: Yes Status: Acute Assessment and Plan: Surgery consulted, no acute cholecystitis. No need for surgical intervention. (11) Weight loss Current Visit: Yes Status: Acute Assessment and Plan: Per patient history, she has experienced a 40 pound weight loss in the last 2 months secondary to nausea and vomiting. Per outpatient records 56lb weight loss. Unclear etiology. past medical hx of cervical cancer with hysterectomy and breast cancer. Has not had a mammogram is a couple of years. She has had nv and diarrhea for a couple of of months. CT scan of abd and pelvis did not show a mass. Plan: -Nutrition consulted, recommended Ensure Enlive twice a day (12) Hypomagnesemia Current Visit: Yes Status: Acute Assessment and Plan: Due to continued diarrhea. Mg = 1.2 today, given 2g of IV Mg, continuing home Mg Ox 400mg daily. (13) Chronic anemia Current Visit: Yes Status: Acute Assessment and Plan: Anemia of chronic disease. But concern for iron deficiency concurrently due to multiple months of diarrhea. Iron low, transferritin low, awaiting ferritin level. (14) Diabetes type 2, controlled Current Visit: Yes Status: Acute Assessment and Plan: Holding home meds. Currently well controlled on LSSI. DVT Prophylaxis: Heparin SQ - Time Spent with Patient Total time spent is greater than 50% in coordination of care (as documented) at patient's floor/unit and/or counseling patient: Plan of Care Discussed with: patient Internal Medicine: Result - Labs CBC & Chem 7: 03/29/18 05:53 03/29/18 05:53 Labs: Short CBC 03/28/18 03/29/18 Range/Units 05:01 05:53 WBC 33.7 H* (4.3-11.1) K/mcL Hgb 10.0 L (11.5-15.4) g/dL Hct 34.0 L (35.3-44.9) % Plt Count 437 H (140-400) K/mcL Neutrophils # 28.2 H 31.4 H (1.6-8.9) K/mcL BMP 03/29/18 05:53 Sodium 142 Potassium 3.9 Chloride 107 Carbon Dioxide 28 BUN 12 Creatinine 0.64 Glucose 237 H Calcium 8.2 L - ABG Interpretation ABG results: ABG ABG pH 7.42 pH Units (7.32-7.45) 03/28/18 20:10 ABG pCO2 43 mmHg (35-45) 03/28/18 20:10 ABG pO2 55 mmHg (85-104) L 03/28/18 20:10 ABG O2 Saturation 88 % (95-98) L 03/28/18 20:10 - Impressions Impressions Chest X-Ray 03/28/18 16:39 IMPRESSION: 1. Bilateral airspace opacities which may represent pulmonary edema or multifocal pneumonia, new since prior examination. 2. Probable skin fold overlying the right hemithorax with no definite pneumothorax. Repeat examination may be considered for confirmation. D/ / Ashlee Hargrove MD / Ashlee Hargrove MD Interpreting Provider: Ashlee Hargrove MD Consult Discharge Plan - Plan Referrals: Kathy Acosta DO [Resident] - <Alex Parham - Last Filed: 03/29/18 17:18> Hospitalist Progress Note - Encounter Date of Encounter: 03/29/18 - Exam Vitals: Temp Pulse Resp BP Pulse Ox 98.3 F 78 17 153/71 93 03/29/18 16:01 09/21/18 16:01 03/29/18 16:01 03/29/18 16:01 03/29/18 16:01 - Assessment and Plan (1) Sepsis Current Visit: No Status: Resolved (2) HTN (hypertension) Current Visit: Yes Status: Chronic (3) CAD (coronary artery disease) Current Visit: Yes Status: Chronic (4) Hypokalemia Current Visit: Yes Status: Acute (5) Chest pain Current Visit: Yes Status: Resolved (6) Weight loss Current Visit: Yes Status: Acute (7) History of CVA (cerebrovascular accident) Current Visit: Yes Status: Acute (8) COPD (chronic obstructive pulmonary disease) Current Visit: Yes Status: Acute (9) Pneumonia Current Visit: Yes Status: Resolved (10) C. difficile colitis Current Visit: Yes Status: Acute (11) Cholelithiasis Current Visit: Yes Status: Acute (12) Hypomagnesemia Current Visit: Yes Status: Acute (13) Chronic anemia Current Visit: Yes Status: Acute (14) Diabetes type 2, controlled Current Visit: Yes Status: Acute - Time Spent with Patient Total time spent is greater than 50% in coordination of care (as documented) at patient's floor/unit and/or counseling patient: Internal Medicine: Result - Labs CBC & Chem 7: 03/29/18 05:53 03/29/18 05:53 Labs: Short CBC 03/29/18 Range/Units 05:53 WBC 33.7 H* (4.3-11.1) K/mcL Hgb 10.0 L (11.5-15.4) g/dL Hct 34.0 L (35.3-44.9) % Plt Count 437 H (140-400) K/mcL Neutrophils # 31.4 H (1.6-8.9) K/mcL BMP 03/29/18 05:53 Sodium 142 Potassium 3.9 Chloride 107 Carbon Dioxide 28 BUN 12 Creatinine 0.64 Glucose 237 H Calcium 8.2 L - ABG Interpretation ABG results: ABG ABG pH 7.42 pH Units (7.32-7.45) 03/28/18 20:10 ABG pCO2 43 mmHg (35-45) 03/28/18 20:10 ABG pO2 55 mmHg (85-104) L 03/28/18 20:10 ABG O2 Saturation 88 % (95-98) L 03/28/18 20:10 - Attending Attestation I examined this patient and my medical decision-making was reviewed with the Resident Physician Dr. Acosta. I agree with the documented findings, disposition and treatment plan as described except to the extent set forth below. Ms. Lauren is a 63 y/o F admitted here with sepsis due to multi focal pneumonia. Pt also c/o abdominal pain. Her CT of Abd today which showed multi focal pneumonia, non specific moderate distension of gallbladder, mild to moderate distention of small bowel several loops concerning for obstruction. Her C. Diff came back as positive. Pt states she is feeling better. Denied any CP/ SOB. Tolerating PO intake well.. No cough. Currently on 5L oxygen through nasal cannula Gen: A, A, O x 3 Chest : Diminished BS b/l Heart: S1S2+ RRR Abd: Soft, moderate discomfort in lower abdomen Back: stage 1 pressure ulcer over the coccyx and stage pressure ulcer over left gluteal region a/p 1. Acute C. Diff colitis WBC still critically elevated Cont Vanc 500mg QID probiotic 2. Cholelithiass with no cholecystitis consulted surgery.. no intervention needed now 3. Sepsis with Pneumonia and C. Diff colitis 4. Acute on chronic hypoxic resp failure Currently on 5 lit O2 Pneumonia- mostly bacterial Resumed abx Cefepime due to worsening resp failure probiotic will f/u on sputum cx, Gram staining IV analgesics 5. Acute pulm edema due to pneumonia Lasix as needed <Kathy Acosta - Last Filed: 03/29/18 08:57> (2) Pneumonia Qualifiers: Pneumonia type: due to unspecified organism Laterality: bilateral Lung location: lower lobe of lung Qualified Code(s): J18.1 - Lobar pneumonia, unspecified organism (3) COPD (chronic obstructive pulmonary disease) Qualifiers: COPD type: chronic bronchitis Chronic bronchitis type: mucopurulent Qualified Code(s): J41.1 - Mucopurulent chronic bronchitis (4) HTN (hypertension) Qualifiers: Hypertension type: essential hypertension Qualified Code(s): I10 - Essential (primary) hypertension (6) CAD (coronary artery disease) Qualifiers: Coronary Disease-Associated Artery/Lesion type: [place] artery [place] vs. transplanted heart: [place] heart Associated angina: without angina Qualified Code(s): I25.10 - Atherosclerotic heart disease of [place] coronary artery without angina pectoris (7) Chest pain Qualifiers: Chest pain type: chest pain due to myocardial ischemia Ischemic chest pain type: unstable angina pectoris Qualified Code(s): I20.0 - Unstable angina (9) Sepsis Qualifiers: Sepsis type: sepsis due to unspecified organism Qualified Code(s): A41.9 - Sepsis, unspecified organism (10) Cholelithiasis Qualifiers: Cholelithiasis location: gallbladder Cholecystitis presence: without cholecystitis Biliary obstruction: without biliary obstruction Qualified Code( s): K80.20 - Calculus of gallbladder without cholecystitis without obstruction (14) Diabetes type 2, controlled Qualifiers: Diabetes mellitus alf insulin use: with alf use Diabetes mellitus complication status: with hyperglycemia Qualified Code(s): E11.65 - Type 2 diabetes mellitus with hyperglycemia; Z79.4 - group home (current) use of insulin <Alex Parham - Last Filed: 03/29/18 17:18> (1) Sepsis Qualifiers: Sepsis type: sepsis due to unspecified organism Qualified Code(s): A41.9 - Sepsis, unspecified organism (2) HTN (hypertension) Qualifiers: Hypertension type: essential hypertension Qualified Code(s): I10 - Essential (primary) hypertension (3) CAD (coronary artery disease) Qualifiers: Coronary Disease-Associated Artery/Lesion type: [place] artery [place] vs. transplanted heart: [place] heart Associated angina: without angina Qualified Code(s): I25.10 - Atherosclerotic heart disease of [place] coronary artery without angina pectoris (5) Chest pain Qualifiers: Chest pain type: chest pain due to myocardial ischemia Ischemic chest pain type: unstable angina pectoris Qualified Code(s): I20.0 - Unstable angina (8) COPD (chronic obstructive pulmonary disease) Qualifiers: COPD type: chronic bronchitis Chronic bronchitis type: mucopurulent Qualified Code(s): J41.1 - Mucopurulent chronic bronchitis (9) Pneumonia Qualifiers: Pneumonia type: due to unspecified organism Laterality: bilateral Lung location: lower lobe of lung Qualified Code(s): J18.1 - Lobar pneumonia, unspecified organism (11) Cholelithiasis Qualifiers: Cholelithiasis location: gallbladder Cholecystitis presence: without cholecystitis Biliary obstruction: without biliary obstruction Qualified Code( s): K80.20 - Calculus of gallbladder without cholecystitis without obstruction (14) Diabetes type 2, controlled Qualifiers: Diabetes mellitus alf insulin use: with termite helper use Diabetes mellitus complication status: with hyperglycemia Qualified Code(s): E11.65 - Type 2 diabetes mellitus with hyperglycemia; Z79.4 - termite helper (current) use of insulin
[2018-03-29] MEDS: Lactobacillus 1 EACH CAP.SPRINK PO SCH ×2 (09:55→22:16)
[2018-03-29] MEDS: Metoprolol 100 MG TABLET PO SCH ×2 (09:55→22:16)
[2018-03-29] MEDS: Gabapentin 100 MG CAPSULE PO SCH ×3 (09:55→22:17)
[2018-03-29] MEDS: Lisinopril 20 MG TABLET PO SCH (09:55)
[2018-03-29] MEDS: Magnesium Oxide 400 MG TABLET PO SCH (09:55)
[2018-03-29] MEDS: Aspirin 81 MG TAB.CHEW PO SCH (09:55)
[2018-03-29] MEDS: Vancomycin Oral Soln 125 MG/2.5 ML UDC PO SCH ×4 (09:56→22:06)
[2018-03-29 10:29] LABS: Ferritin 50 ng/mL (10-120)
[2018-03-29] MEDS: Insulin LISPRO 300 UNITS/3 ML VIAL SQ SCH ×4 (10:58→22:17)
--- NOTE | 2018-03-29 17:24 | Electrocardiograph Report ---
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
[2018-03-29] MEDS: Ondansetron 4 MG/2 ML VIAL IVP PRN (17:51)
[2018-03-29] MEDS: Piperacillin/Tazobactam 3.375 GM in 0.9 % Sodium Chloride Mini Bag 100 ML IVPB SCH (17:53)
[2018-03-29] MEDS: traZODone 50 MG TABLET PO SCH (22:15)
[2018-03-29] MEDS: 0.9 % Sodium Chloride 1,000 ML IVC SCH (23:28)
[2018-03-30] MEDS: Ipratropium/Albuterol Neb 3 ML IH SCH ×6 (00:27→20:22)
[2018-03-30] MEDS: Piperacillin/Tazobactam 3.375 GM in 0.9 % Sodium Chloride Mini Bag 100 ML IVPB SCH ×3 (00:59→18:37)
[2018-03-30] MEDS: *HR* Heparin 5,000 UNIT/ML VIAL SQ SCH ×3 (05:43→22:38)
[2018-03-30 06:00] LABS: Basophils % 0.2 %
[2018-03-30 06:01] LABS: Basophils # 0.1 K/mcL (0.0-0.2); Hematocrit 37.8 % (35.3-44.9); Hemoglobin 11.1 g/dL (11.5-15.4); Immature Granulocytes % 1.3 % (0-4); Lymphocytes # 1.5 K/mcL (0.6-4.6); Mean Corpuscular HGB Conc 29.4 g/dL (31.6-35.5); Mean Corpuscular Hemoglobin 22.1 pg (28.0-33.3); Mean Corpuscular Volume 75.3 fL (83.0-100.0); Mean Platelet Volume 12.3 fL (9.4-12.4); Monocytes # 1.5 K/mcL (0.0-1.3); Neutrophils # 33.6 K/mcL (1.6-8.9); Nucleated Red Blood Cells 0.9 /100 WBC (0); Platelet Count 440 K/mcL (140-400); Red Blood Count 5.02 M/mcL (3.82-4.97); Red Cell Distribution Width 21.4 % (11.5-14.5); Segmented Neutrophils % 90.5 %
[2018-03-30] MEDS: OXYCODONE Oral CONC 10 MG/0.5 ML ORAL.SYG SL PRN ×2 (06:06→18:37)
[2018-03-30 06:18] LABS: BUN/Creatinine Ratio 25 (6-26); Blood Urea Nitrogen 19 mg/dL (8-23); Calcium 8.9 mg/dL (8.6-10.3); Carbon Dioxide 27 mEq/L (23-29); Chloride 105 mEq/L (98-107); Glucose 187 mg/dL (70-105); Osmolality,Calculated 301 (280-300); Potassium 3.9 mEq/L (3.5-5.1); Sodium 142 mEq/L (136-145); eGFR For Non-African Americans > 60 (> 60)
[2018-03-30 06:25] LABS: Platelet Estimate Normal (Normal)
[2018-03-30 06:26] LABS: Hypochromasia Present (Not Present)
[2018-03-30] MEDS: Gabapentin 100 MG CAPSULE PO SCH ×3 (07:46→20:05)
[2018-03-30] MEDS: Aspirin 81 MG TAB.CHEW PO SCH (07:46)
[2018-03-30] MEDS: Magnesium Oxide 400 MG TABLET PO SCH (07:46)
[2018-03-30] MEDS: Lactobacillus 1 EACH CAP.SPRINK PO SCH ×2 (07:46→20:05)
[2018-03-30] MEDS: Metoprolol 100 MG TABLET PO SCH ×2 (07:46→20:05)
[2018-03-30] MEDS: Vancomycin Oral Soln 125 MG/2.5 ML UDC PO SCH ×4 (07:48→20:05)
[2018-03-30] MEDS: Lisinopril 20 MG TABLET PO SCH (07:49)
[2018-03-30] MEDS: Beclomethasone 80mcg MDI IH SCH ×2 (07:51→20:23)
[2018-03-30] MEDS: Insulin LISPRO 300 UNITS/3 ML VIAL SQ SCH ×4 (07:54→23:40)
[2018-03-30] MEDS: Tiotropium 18 MCG inhalation IH SCH (07:54)
[2018-03-30] MEDS: Ondansetron 4 MG/2 ML VIAL IVP PRN (13:44)
--- NOTE | 2018-03-30 14:35 | Internal Med Progress Note ---
Hospitalist Progress Note - Encounter Date of Encounter: 03/30/18 Time of Encounter: 14:32 - Subjective Interval History: Ms. Lauren is a 63 y/o F admitted here with sepsis due to multi focal pneumonia. Pt also c/o abdominal pain. Her CT of Abd today which showed multi focal pneumonia, non specific moderate distension of gallbladder, mild to moderate distention of small bowel several loops concerning for obstruction. Her C. Diff came back as positive. She was started on oral vancomycin 500 mg Q ID . Her diarrhea improved now. However patient is still complaining about severe nausea and vomiting . She still have epigastric and right upper quadrant abdominal pain. Currently on 5L oxygen through nasal cannula - Exam Vitals: Temp Pulse Resp BP Pulse Ox 99.0 F 74 16 124/67 94 03/30/18 11:52 03/30/18 11:52 03/30/18 11:52 03/30/18 11:52 03/30/18 11:52 Exam: Gen: Alert, awake, Oriented to time,place and person Chest: Diminished breath sounds B/L, No wheezing, crackles and rales present Heart: S1S2+ RRR No murmurs Abd: Soft, moderate discomfort at the right upper quadrant and epigastric region , BS +, No organomegaly Ext: No edema, pulses are palpable, No calf tenderness Neuro : Benign findings Skin: No rash. - Assessment and Plan (1) Cholelithiasis Current Visit: Yes Status: Acute Assessment and Plan: With intractable nausea and vomiting concerning for cholecystitis however her ultrasound of abdomen did not show any cholecystitis Reconsulted Surgery will talk to surgery about HIDA scan vs MRCP continue symptomatic and supportive care (2) Sepsis Current Visit: No Status: Resolved Assessment and Plan: Due to C diff colitis and a pneumonia improving continue vancomycin PO and Cefepime (3) Acute and chronic respiratory failure with hypoxia Current Visit: Yes Status: Acute (4) CAD (coronary artery disease) Current Visit: Yes Status: Chronic Assessment and Plan: Prior history, CABG x 5. Continue ASA, statin, plavix, Continue telemetry. Cardiology signed off, recommending outpatient stress test and follow up (5) COPD (chronic obstructive pulmonary disease) Current Visit: Yes Status: Acute Assessment and Plan: Acute COPD exacerbation as patient's O2 demand is increasing, in the setting of pneumonia Lasix PRN Cont Duoneb Q4H linda, Q2H prn O2 supplement as needed, Oxymask 5 L currently continue Qvar, Spiriva (6) Pneumonia Current Visit: Yes Status: Resolved Assessment and Plan: CT abd/pelvis showed multifocal pneumonia - strep, legionella are ngeative - mycoplasma pending - resp panel pending - continue O2 support - duonebs Q4H linda, Q2H prn continue broad-spectrum antibiotic Cefepime (7) C. difficile colitis Current Visit: Yes Status: Acute Assessment and Plan: Cont oral vanco ( day 3) Zofran for nausea on probiotics (8) Hypomagnesemia Current Visit: Yes Status: Acute Assessment and Plan: Continue replacing (9) Chronic anemia Current Visit: Yes Status: Acute Assessment and Plan: Anemia of chronic disease. But concern for iron deficiency concurrently due to multiple months of diarrhea. Iron low, transferritin low, awaiting ferritin level. (10) Diabetes type 2, controlled Current Visit: Yes Status: Acute Assessment and Plan: Holding home meds. Currently well controlled on LSSI. (11) HTN (hypertension) Current Visit: Yes Status: Chronic Assessment and Plan: Stable with current medication continue current regimen (12) History of CVA (cerebrovascular accident) Current Visit: Yes Status: Acute Assessment and Plan: CVA X2, Continue ASA and Plavix (13) Weight loss Current Visit: Yes Status: Acute Assessment and Plan: -Nutrition consulted, recommended Ensure twice a day (14) Hypokalemia Current Visit: Yes Status: Acute Assessment and Plan: Resolved (15) Chest pain Current Visit: Yes Status: Resolved Assessment and Plan: Presented for chest pain. Troponin max 0.23, decreased to 0.19. Cardiology consulted and believes this to be due to demand ischemia/ NSTEMI II due to UTI. EKG NSR echo, normal EF 70% Continue ASA, statin, Plavix, metoprolol Cardiology signed off, stress test outpatient - Time Spent with Patient Total time spent is greater than 50% in coordination of care (as documented) at patient's floor/unit and/or counseling patient: Internal Medicine: Result - Labs CBC & Chem 7: 03/30/18 05:40 03/30/18 05:40 Labs: Short CBC 03/30/18 Range/Units 05:40 WBC 37.1 H* (4.3-11.1) K/mcL Hgb 11.1 L (11.5-15.4) g/dL Hct 37.8 (35.3-44.9) % Plt Count 440 H (140-400) K/mcL Neutrophils # 33.6 H (1.6-8.9) K/mcL BMP 03/30/18 05:40 Sodium 142 Potassium 3.9 Chloride 105 Carbon Dioxide 27 BUN 19 Creatinine 0.76 Glucose 187 H Calcium 8.9 - ABG Interpretation ABG results: ABG ABG pH 7.42 pH Units (7.32-7.45) 03/28/18 20:10 ABG pCO2 43 mmHg (35-45) 03/28/18 20:10 ABG pO2 55 mmHg (85-104) L 03/28/18 20:10 ABG O2 Saturation 88 % (95-98) L 03/28/18 20:10 Consult Discharge Plan - Plan Referrals: Kathy Acosta DO [Resident] - (1) Cholelithiasis Qualifiers: Cholelithiasis location: gallbladder Cholecystitis presence: without cholecystitis Biliary obstruction: without biliary obstruction Qualified Code( s): K80.20 - Calculus of gallbladder without cholecystitis without obstruction (2) Sepsis Qualifiers: Sepsis type: sepsis due to unspecified organism Qualified Code(s): A41.9 - Sepsis, unspecified organism (4) CAD (coronary artery disease) Qualifiers: Coronary Disease-Associated Artery/Lesion type: [place] artery [place] vs. transplanted heart: [place] heart Associated angina: without angina Qualified Code(s): I25.10 - Atherosclerotic heart disease of [place] coronary artery without angina pectoris (5) COPD (chronic obstructive pulmonary disease) Qualifiers: COPD type: chronic bronchitis Chronic bronchitis type: mucopurulent Qualified Code(s): J41.1 - Mucopurulent chronic bronchitis (6) Pneumonia Qualifiers: Pneumonia type: due to unspecified organism Laterality: bilateral Lung location: lower lobe of lung Qualified Code(s): J18.1 - Lobar pneumonia, unspecified organism (10) Diabetes type 2, controlled Qualifiers: Diabetes mellitus stonemason insulin use: with stonemason use Diabetes mellitus complication status: with hyperglycemia Qualified Code(s): E11.65 - Type 2 diabetes mellitus with hyperglycemia; Z79.4 - [facility] (current) use of insulin (11) HTN (hypertension) Qualifiers: Hypertension type: essential hypertension Qualified Code(s): I10 - Essential (primary) hypertension (15) Chest pain Qualifiers: Chest pain type: chest pain due to myocardial ischemia Ischemic chest pain type: unstable angina pectoris Qualified Code(s): I20.0 - Unstable angina
[2018-03-30] MEDS ORDERED: Furosemide 20 MG/2 ML VIAL IVP ONE (14:45)
--- NOTE | 2018-03-30 15:11 | General Surgery Progress Note ---
<Keven Ng R - Last Filed: 03/30/18 15:53> Date of Encounter: 03/30/18 Time of Encounter: 15:00 - Assessment and Plan (1) Abdominal pain Current Visit: Yes Status: Acute Nausea, vomiting, and abdominal pain have continued, despite resolving c. diff infection. WBC initially improved, but has risen again to 37K this am Initial CT with cholelithiasis without acute cholecystitis, CBD measured at 1.0 cm Initial LFT's not elevated, have not been repeated Plan: Recommend repeat CT abdomen and pelvis, patient is allergic to contrast, will order without Recheck LFTs Further recommendations with possible MRCP and/or HIDA pending CT findings prn antiemetic abx per primary team for pneumonia and c. diff PPI prophylaxis comfort care and pain management Qualifiers: Abdominal location: generalized Qualified Code(s): R10.84 - Generalized abdominal pain (2) Cholelithiasis Current Visit: Yes Status: Acute Plan as above Recommendations pending imaging Qualifiers: Cholelithiasis location: gallbladder Cholecystitis presence: without cholecystitis Biliary obstruction: without biliary obstruction Qualified Code(s): K80.20 - Calculus of gallbladder without cholecystitis without obstruction Subjective Patient reports: still having pain, tolerating a regular diet, voiding w/o difficulty, flatus, bowel movement, diarrhea, nausea, vomiting, shortness of breath, afebrile Narrative: Patient reports nausea, vomiting, and abdominal pain that persists. Pain cannot be localized. Denies worse pain or nausea with eating. Has been present for 3 months and is unchanged. Reports that diarrhea has improved since treatment for C. Diff. Objective Vital Signs - Last 8 Hours Temp Pulse Resp BP Pulse Ox 03/30/18 11:52 99.0 F 74 16 124/67 94 03/30/18 11:07 18 92 03/30/18 07:55 18 92 Intake and Output 03/29/18 03/30/18 03/30/18 23:59 07:59 15:59 Intake Total 204 / 204 100 / 100 240 / 240 Output Total 550 / 550 300 / 300 250 / 250 Balance -346 / -346 -200 / -200 -10 / -10 Intake: IV Fluids 204 / 204 100 / 100 Zosyn 3.375 GM In 0.9 % Sodium 100 / 100 100 / 100 Chloride (Mini-Bag +) 100 ML @ 25 mls/hr IVPB Q8HR [facility] Rx#: [id number] Oral 240 / 240 Output: Catheter 550 / 550 300 / 300 250 / 250 Other: Meal Breakfast Percent of Meal Consumed 50% Blood Glucose* 174 189 107 - General physical appearance no distress, chronically ill - Eyes normal ocular movement - ENT poor usp, dry mucosa, atraumatic, normocephalic - Neck Neck exam: trachea midline, no venous distension - Respiratory normal expansion, normal respiratory effort - Cardiovascular Cardiovascular exam: Present: RRR - Abdomen Abdomen: Present: bowel sounds present, soft, tender (diffuse tenderness without localization. ). Absent: tympanic, distended, rebound, rigid Abdominal Tenderness: diffusely - Integumentary no rash - Neurologic CN 2-12 grossly intact - Musculoskeletal normal posture - Psychiatric oriented to time, oriented to person, oriented to place, speech is normal, memory intact - Labs 03/30/18 05:40 03/30/18 05:40 Diabetes panel 03/30/18 Range/Units 05:40 Sodium 142 (136-145) mEq/L Potassium 3.9 (3.5-5.1) mEq/L Chloride 105 (98-107) mEq/L Carbon Dioxide 27 (23-29) mEq/L BUN 19 (8-23) mg/dL Creatinine 0.76 (0.60-1.20) mg/dL Glucose 187 H (70-105) mg/dL Calcium 8.9 (8.6-10.3) mg/dL Calcium panel 03/30/18 Range/Units 05:40 Calcium 8.9 (8.6-10.3) mg/dL Pituitary panel 03/30/18 Range/Units 05:40 Sodium 142 (136-145) mEq/L Potassium 3.9 (3.5-5.1) mEq/L Chloride 105 (98-107) mEq/L Carbon Dioxide 27 (23-29) mEq/L BUN 19 (8-23) mg/dL Creatinine 0.76 (0.60-1.20) mg/dL Glucose 187 H (70-105) mg/dL Calcium 8.9 (8.6-10.3) mg/dL Adrenal panel 03/30/18 Range/Units 05:40 Sodium 142 (136-145) mEq/L Potassium 3.9 (3.5-5.1) mEq/L Chloride 105 (98-107) mEq/L Carbon Dioxide 27 (23-29) mEq/L BUN 19 (8-23) mg/dL Creatinine 0.76 (0.60-1.20) mg/dL Glucose 187 H (70-105) mg/dL Calcium 8.9 (8.6-10.3) mg/dL Consult Discharge Plan - Plan Referrals: Kathy Acosta DO [Resident] - <Dilshad Andres - Last Filed: 03/30/18 19:02> Date of Encounter: 03/30/18 Objective Vital Signs - Last 8 Hours Temp Pulse Resp BP Pulse Ox 03/30/18 15:52 16 92 03/30/18 11:52 99.0 F 74 16 124/67 94 03/30/18 11:07 18 92 Intake and Output 03/30/18 03/30/18 03/30/18 07:59 15:59 23:59 Intake Total 100 / 100 820 / 820 120 / 120 Output Total 300 / 300 250 / 250 Balance -200 / -200 570 / 570 120 / 120 Intake: IV Fluids 100 / 100 100 / 100 Zosyn 3.375 GM In 0.9 % Sodium 100 / 100 100 / 100 Chloride (Mini-Bag +) 100 ML @ 25 mls/hr IVPB Q8HR [facility] Rx#: [id number] Oral 720 / 720 120 / 120 Output: Catheter 300 / 300 250 / 250 Other: Meal Lunch Dinner Percent of Meal Consumed 75% 25% Blood Glucose* 189 107 110 - Labs 03/30/18 05:40 03/30/18 05:40 Diabetes panel 03/30/18 Range/Units 05:40 Sodium 142 (136-145) mEq/L Potassium 3.9 (3.5-5.1) mEq/L Chloride 105 (98-107) mEq/L Carbon Dioxide 27 (23-29) mEq/L BUN 19 (8-23) mg/dL Creatinine 0.76 (0.60-1.20) mg/dL Glucose 187 H (70-105) mg/dL Calcium 8.9 (8.6-10.3) mg/dL Calcium panel 03/30/18 Range/Units 05:40 Calcium 8.9 (8.6-10.3) mg/dL Pituitary panel 03/30/18 Range/Units 05:40 Sodium 142 (136-145) mEq/L Potassium 3.9 (3.5-5.1) mEq/L Chloride 105 (98-107) mEq/L Carbon Dioxide 27 (23-29) mEq/L BUN 19 (8-23) mg/dL Creatinine 0.76 (0.60-1.20) mg/dL Glucose 187 H (70-105) mg/dL Calcium 8.9 (8.6-10.3) mg/dL Adrenal panel 03/30/18 Range/Units 05:40 Sodium 142 (136-145) mEq/L Potassium 3.9 (3.5-5.1) mEq/L Chloride 105 (98-107) mEq/L Carbon Dioxide 27 (23-29) mEq/L BUN 19 (8-23) mg/dL Creatinine 0.76 (0.60-1.20) mg/dL Glucose 187 H (70-105) mg/dL Calcium 8.9 (8.6-10.3) mg/dL - Attending Attestation patient seen and examined. i have reviewed all labs, imaging, and notes. i agree with the above assessment and plan and wish to add the following... unknown source of leukocytosis; with an ileus type picture; plan for NG tube placement; serial exams; no acute surgery
[2018-03-30] MEDS: traZODone 50 MG TABLET PO SCH (22:16)
[2018-03-30] MEDS ORDERED: Chloraseptic Spray 177 ML BOTTLE MM PRN (22:23)
[2018-03-30] MEDS ORDERED: Saliva Stimulant 100ml BOTTLE PO PRN (22:24)
[2018-03-31] MEDS: Ipratropium/Albuterol Neb 3 ML IH SCH ×6 (00:07→20:50)
[2018-03-31] MEDS: Piperacillin/Tazobactam 3.375 GM in 0.9 % Sodium Chloride Mini Bag 100 ML IVPB SCH ×4 (00:07→23:21)
[2018-03-31] MEDS: Insulin LISPRO 300 UNITS/3 ML VIAL SQ SCH ×4 (06:10→21:31)
[2018-03-31] MEDS: *HR* Heparin 5,000 UNIT/ML VIAL SQ SCH ×3 (06:22→21:37)
[2018-03-31 06:25] LABS: Basophils # 0.1 K/mcL (0.0-0.2); Basophils % 0.2 %; Eosinophils # 0.2 K/mcL (0.0-0.6); Eosinophils % 0.6 %; Hematocrit 34.6 % (35.3-44.9); Hemoglobin 10.2 g/dL (11.5-15.4); Immature Granulocytes % 2.6 % (0-4); Lymphocytes # 3.1 K/mcL (0.6-4.6); Lymphocytes % 11.4 %; Mean Corpuscular HGB Conc 29.5 g/dL (31.6-35.5); Mean Corpuscular Hemoglobin 22.5 pg (28.0-33.3); Mean Corpuscular Volume 76.4 fL (83.0-100.0); Mean Platelet Volume 13.2 fL (9.4-12.4); Monocytes # 1.6 K/mcL (0.0-1.3); Monocytes % 5.7 %; Neutrophils # 21.8 K/mcL (1.6-8.9); Nucleated Red Blood Cells 1.2 /100 WBC (0); Platelet Count 437 K/mcL (140-400); Red Blood Count 4.53 M/mcL (3.82-4.97); Segmented Neutrophils % 79.5 %
[2018-03-31 06:27] LABS: INR 1.4; Prothrombin Time 16.2 Seconds (9.4-12.1)
[2018-03-31 06:39] LABS: Reactive Lymphocytes Present (Not Present)
[2018-03-31 06:40] LABS: Anisocytosis 1+ (Not Present)
[2018-03-31 06:41] LABS: BUN/Creatinine Ratio 20 (6-26); Blood Urea Nitrogen 15 mg/dL (8-23); Calcium 8.5 mg/dL (8.6-10.3); Carbon Dioxide 33 mEq/L (23-29); Chloride 103 mEq/L (98-107); Glucose 96 mg/dL (70-105); Osmolality,Calculated 297 (280-300); Potassium 3.4 mEq/L (3.5-5.1); Sodium 143 mEq/L (136-145); eGFR For Non-African Americans > 60 (> 60)
[2018-03-31] MEDS: Beclomethasone 80mcg MDI IH SCH ×2 (08:09→20:50)
[2018-03-31] MEDS: Tiotropium 18 MCG inhalation IH SCH (08:19)
[2018-03-31] MEDS: Lisinopril 20 MG TABLET PO SCH (08:41)
[2018-03-31] MEDS: Lactobacillus 1 EACH CAP.SPRINK PO SCH ×2 (09:02→21:33)
[2018-03-31] MEDS: Magnesium Oxide 400 MG TABLET PO SCH (09:02)
[2018-03-31] MEDS: Aspirin 81 MG TAB.CHEW PO SCH (09:02)
[2018-03-31] MEDS: Metoprolol 100 MG TABLET PO SCH ×2 (09:02→21:33)
[2018-03-31] MEDS: Gabapentin 100 MG CAPSULE PO SCH ×3 (09:02→21:33)
[2018-03-31] MEDS: Vancomycin Oral Soln 125 MG/2.5 ML UDC PO SCH ×4 (09:03→21:31)
--- NOTE | 2018-03-31 09:33 | General Surgery Progress Note ---
<Keven Ng R - Last Filed: 03/31/18 09:31> Date of Encounter: 03/31/18 Time of Encounter: 08:05 - Assessment and Plan (1) Abdominal pain Current Visit: Yes Status: Acute Was NPO with NG last night. Patient feeling less nauseous today. WBC improved 37>[address] abdomen with findings of ileus and cholelithiasis without acute cholecystitis Plan: Okay to start clear liquid diet Likely no acute surgical intervention at this time Will advance diet and follow prn antiemetic abx per primary team for pneumonia and c. diff PPI prophylaxis comfort care and pain management Qualifiers: Abdominal location: generalized Qualified Code(s): R10.84 - Generalized abdominal pain (2) Cholelithiasis Current Visit: Yes Status: Acute No acute surgical intervention at this time Qualifiers: Cholelithiasis location: gallbladder Cholecystitis presence: without cholecystitis Biliary obstruction: without biliary obstruction Qualified Code(s): K80.20 - Calculus of gallbladder without cholecystitis without obstruction (3) Leukocytosis Current Visit: Yes Status: Acute WBC has improved this am 37>27 Will continue to follow and reassess Qualifiers: Leukocytosis type: unspecified Qualified Code(s): D72.829 - Elevated white blood cell count, unspecified Subjective Patient reports: no new complaints, voiding w/o difficulty, flatus, bowel movement, diarrhea, afebrile Narrative: patient reports pain is still present as has been for last 3 months. Improving diarrhea. No nausea or vomiting today. Objective Vital Signs - Last 8 Hours Temp Pulse Resp BP Pulse Ox 03/31/18 07:16 99.6 F 91 18 110/56 91 03/31/18 04:13 98.4 F 88 15 160/72 94 03/31/18 03:45 14 93 Intake and Output 03/30/18 03/31/18 03/31/18 23:59 07:59 15:59 Intake Total 220 / 220 100 / 100 Output Total 450 / 450 500 / 500 Balance -230 / -230 -400 / -400 Intake: IV Fluids 100 / 100 100 / 100 Zosyn 3.375 GM In 0.9 % Sodium 100 / 100 100 / 100 Chloride (Mini-Bag +) 100 ML @ 25 mls/hr IVPB Q8HR [facility] Rx#: [id number] Oral 120 / 120 0 / 0 Output: Urine 350 / 350 Gastric Tube Lavage Amount 100 / 100 Left Nare 100 / 100 Catheter 500 / 500 Urethral (Chandra) 400 / 400 Other: Meal Dinner NPO BREAKFAST Percent of Meal Consumed 25% Stool Size Moderate Stool Consistency loose Stool Color Brown # Bowel Movements 1 Weight 69.5 kg Blood Glucose* 111 97 Patient Weight 03/31/18 23:59 Weight 69.5 kg - General physical appearance no distress, no pain, chronically ill - Eyes normal ocular movement - ENT normal mucosa, atraumatic, normocephalic - Neck Neck exam: trachea midline - Respiratory normal expansion - Abdomen Abdomen: Present: bowel sounds present, soft, tender (diffuse without localization). Absent: distended, guarding, rebound Abdominal Tenderness: diffusely - Integumentary no rash - Neurologic CN 2-12 grossly intact - Musculoskeletal normal posture - Psychiatric oriented to time, oriented to person, oriented to place, speech is normal, memory intact - Labs 03/31/18 05:48 03/31/18 05:48 Diabetes panel 03/31/18 Range/Units 05:48 Sodium 143 (136-145) mEq/L Potassium 3.4 L (3.5-5.1) mEq/L Chloride 103 (98-107) mEq/L Carbon Dioxide 33 H (23-29) mEq/L BUN 15 (8-23) mg/dL Creatinine 0.75 (0.60-1.20) mg/dL Glucose 96 (70-105) mg/dL Calcium 8.5 L (8.6-10.3) mg/dL Calcium panel 03/31/18 Range/Units 05:48 Calcium 8.5 L (8.6-10.3) mg/dL Pituitary panel 03/31/18 Range/Units 05:48 Sodium 143 (136-145) mEq/L Potassium 3.4 L (3.5-5.1) mEq/L Chloride 103 (98-107) mEq/L Carbon Dioxide 33 H (23-29) mEq/L BUN 15 (8-23) mg/dL Creatinine 0.75 (0.60-1.20) mg/dL Glucose 96 (70-105) mg/dL Calcium 8.5 L (8.6-10.3) mg/dL Adrenal panel 03/31/18 Range/Units 05:48 Sodium 143 (136-145) mEq/L Potassium 3.4 L (3.5-5.1) mEq/L Chloride 103 (98-107) mEq/L Carbon Dioxide 33 H (23-29) mEq/L BUN 15 (8-23) mg/dL Creatinine 0.75 (0.60-1.20) mg/dL Glucose 96 (70-105) mg/dL Calcium 8.5 L (8.6-10.3) mg/dL Consult Discharge Plan - Plan Referrals: Kathy Acosta DO [Resident] - <Dilshad Andres - Last Filed: 03/31/18 10:38> Date of Encounter: 03/31/18 Objective Vital Signs - Last 8 Hours Temp Pulse Resp BP Pulse Ox 03/31/18 07:16 99.6 F 91 18 110/56 91 03/31/18 04:13 98.4 F 88 15 160/72 94 03/31/18 03:45 14 93 Intake and Output 03/30/18 03/31/18 03/31/18 23:59 07:59 15:59 Intake Total 220 / 220 100 / 100 Output Total 450 / 450 500 / 500 Balance -230 / -230 -400 / -400 Intake: IV Fluids 100 / 100 100 / 100 Zosyn 3.375 GM In 0.9 % Sodium 100 / 100 100 / 100 Chloride (Mini-Bag +) 100 ML @ 25 mls/hr IVPB Q8HR [facility] Rx#: [id number] Oral 120 / 120 0 / 0 Output: Urine 350 / 350 Gastric Tube Lavage Amount 100 / 100 Left Nare 100 / 100 Catheter 500 / 500 Urethral (Chandra) 400 / 400 Other: Meal Dinner NPO BREAKFAST Percent of Meal Consumed 25% Stool Size Moderate Stool Consistency loose Stool Color Brown # Bowel Movements 1 Weight 69.5 kg Blood Glucose* 111 97 Patient Weight 03/31/18 23:59 Weight 69.5 kg - Labs 03/31/18 05:48 03/31/18 05:48 Diabetes panel 03/31/18 Range/Units 05:48 Sodium 143 (136-145) mEq/L Potassium 3.4 L (3.5-5.1) mEq/L Chloride 103 (98-107) mEq/L Carbon Dioxide 33 H (23-29) mEq/L BUN 15 (8-23) mg/dL Creatinine 0.75 (0.60-1.20) mg/dL Glucose 96 (70-105) mg/dL Calcium 8.5 L (8.6-10.3) mg/dL Calcium panel 03/31/18 Range/Units 05:48 Calcium 8.5 L (8.6-10.3) mg/dL Pituitary panel 03/31/18 Range/Units 05:48 Sodium 143 (136-145) mEq/L Potassium 3.4 L (3.5-5.1) mEq/L Chloride 103 (98-107) mEq/L Carbon Dioxide 33 H (23-29) mEq/L BUN 15 (8-23) mg/dL Creatinine 0.75 (0.60-1.20) mg/dL Glucose 96 (70-105) mg/dL Calcium 8.5 L (8.6-10.3) mg/dL Adrenal panel 03/31/18 Range/Units 05:48 Sodium 143 (136-145) mEq/L Potassium 3.4 L (3.5-5.1) mEq/L Chloride 103 (98-107) mEq/L Carbon Dioxide 33 H (23-29) mEq/L BUN 15 (8-23) mg/dL Creatinine 0.75 (0.60-1.20) mg/dL Glucose 96 (70-105) mg/dL Calcium 8.5 L (8.6-10.3) mg/dL - Attending Attestation patient seen and examined. i have reviewed all labs, imaging, and notes. i agree with the above assessment and plan and wish to add the following... Abd soft, non distended; but she does report generalized pain; (-)murpy's sign; non peritoneal; start with clear liquids cont care of pulmonary disease per primary team will cont to follow
--- NOTE | 2018-03-31 14:52 | Internal Med Progress Note ---
Hospitalist Progress Note - Encounter Date of Encounter: 03/31/18 Time of Encounter: 14:49 - Subjective Interval History: Ms. Lauren is a 63 y/o F admitted here with sepsis due to multi focal pneumonia. Pt also c/o abdominal pain. Her CT of Abd today which showed multi focal pneumonia, non specific moderate distension of gallbladder, mild to moderate distention of small bowel several loops concerning for obstruction. Her C. Diff came back as positive. She was started on oral vancomycin 500 mg Q ID . Her diarrhea improved now. However patient still complained about severe nausea and vomiting . Her CT of abdomen showed cholelithiasis with no acute cholecystitis and diffuse dilation of the small bowel with fluid and air suggestive of ileus. Patient did not keep of NG tube last night. However today her nausea to be little better and she would like to eat. Placed another NG tube this morning - Exam Vitals: Temp Pulse Resp BP Pulse Ox 98.2 F 73 18 112/71 93 03/31/18 13:53 03/31/18 13:53 03/31/18 13:53 03/31/18 13:53 03/31/18 13:53 Exam: Gen: Alert, awake, Oriented to time,place and person Chest: Diminished breath sounds B/L, No wheezing, crackles and rales present Heart: S1S2+ RRR No murmurs Abd: Soft, moderate discomfort at the right upper quadrant and epigastric region , BS +, No organomegaly Ext: No edema, pulses are palpable, No calf tenderness Neuro : Benign findings Skin: No rash. - Assessment and Plan (1) Ileus Current Visit: Yes Status: Acute Assessment and Plan: CT of abdomen showed small bowel obstruction/ileus surgery consulted and appreciate their recommendations continue symptomatic and supportive care surgery clears the patient to be on clear liquid diet (2) Cholelithiasis Current Visit: Yes Status: Acute Assessment and Plan: Her CT of abdomen did not show any acute cholecystitis continue symptomatic and supportive care (3) Sepsis Current Visit: No Status: Resolved Assessment and Plan: Due to C diff colitis and a pneumonia WBC started training down slowly improving continue vancomycin PO and Cefepime (4) Acute and chronic respiratory failure with hypoxia Current Visit: Yes Status: Acute Assessment and Plan: Due to pneumonia and physical deconditioning continue Neb treatments as needed continue empirical antibiotic (5) CAD (coronary artery disease) Current Visit: Yes Status: Chronic Assessment and Plan: Prior history, CABG x 5. Continue ASA, statin, plavix, Continue telemetry. Cardiology signed off, recommending outpatient stress test and follow up (6) COPD (chronic obstructive pulmonary disease) Current Visit: Yes Status: Acute Assessment and Plan: Acute COPD exacerbation as patient's O2 demand is increasing, in the setting of pneumonia Lasix PRN Cont Duoneb Q4H linda, Q2H prn O2 supplement as needed, Oxymask 5 L currently continue Qvar, Spiriva (7) Pneumonia Current Visit: Yes Status: Resolved Assessment and Plan: CT abd/pelvis showed multifocal pneumonia - strep, legionella are ngeative - mycoplasma pending - resp panel pending - continue O2 support - duonebs Q4H linda, Q2H prn continue broad-spectrum antibiotic Cefepime (8) C. difficile colitis Current Visit: Yes Status: Acute Assessment and Plan: Cont oral vanco at 500 mg QID ( day 5) since patient's WBC still elevated and pt look toxic Zofran for nausea on probiotics (9) Hypomagnesemia Current Visit: Yes Status: Acute Assessment and Plan: Continue replacing (10) Chronic anemia Current Visit: Yes Status: Acute Assessment and Plan: Anemia of chronic disease. But concern for iron deficiency concurrently due to multiple months of diarrhea. Iron low, transferritin low, awaiting ferritin level. (11) Diabetes type 2, controlled Current Visit: Yes Status: Acute Assessment and Plan: Holding home meds. Currently well controlled on LSSI. (12) HTN (hypertension) Current Visit: Yes Status: Chronic Assessment and Plan: Stable with current medication continue current regimen (13) History of CVA (cerebrovascular accident) Current Visit: Yes Status: Acute Assessment and Plan: CVA X2, Continue ASA and Plavix (14) Weight loss Current Visit: Yes Status: Acute Assessment and Plan: -Nutrition consulted, recommended Ensure twice a day (15) Hypokalemia Current Visit: Yes Status: Acute Assessment and Plan: Resolved (16) Chest pain Current Visit: Yes Status: Resolved Assessment and Plan: Presented for chest pain. Troponin max 0.23, decreased to 0.19. Cardiology consulted and believes this to be due to demand ischemia/ NSTEMI II due to UTI. EKG NSR echo, normal EF 70% Continue ASA, statin, Plavix, metoprolol Cardiology signed off, stress test outpatient - Time Spent with Patient Total time spent is greater than 50% in coordination of care (as documented) at patient's floor/unit and/or counseling patient: Internal Medicine: Result - Labs CBC & Chem 7: 03/31/18 05:48 03/31/18 05:48 Labs: Short CBC 03/31/18 Range/Units 05:48 WBC 27.4 H (4.3-11.1) K/mcL Hgb 10.2 L (11.5-15.4) g/dL Hct 34.6 L (35.3-44.9) % Plt Count 437 H (140-400) K/mcL Neutrophils # 21.8 H (1.6-8.9) K/mcL BMP 03/31/18 05:48 Sodium 143 Potassium 3.4 L Chloride 103 Carbon Dioxide 33 H BUN 15 Creatinine 0.75 Glucose 96 Calcium 8.5 L - ABG Interpretation ABG results: ABG ABG pH 7.42 pH Units (7.32-7.45) 03/28/18 20:10 ABG pCO2 43 mmHg (35-45) 03/28/18 20:10 ABG pO2 55 mmHg (85-104) L 03/28/18 20:10 ABG O2 Saturation 88 % (95-98) L 03/28/18 20:10 PT/INR, D-dimer PT 16.2 Seconds (9.4-12.1) H 03/31/18 05:48 - Impressions Impressions Abdomen/Pelvis CT 03/30/18 15:43 IMPRESSION: 1. Cholelithiasis with possible slight thickening of the gallbladder wall. Gallstones are present in the gallbladder neck. No significant pericholecystic inflammation is seen. If there is high clinical concern for acute cholecystitis, further evaluation with HIDA scan may be of use. 2. Diffuse dilation of the small bowel with fluid and air, most suggestive of ileus. The stomach is mildly distended. 3. Mild distention of the stomach. D/ / 03/30/2018 19:30:46 Zeferino Leyva MD / aleena Interpreting Provider: Zeferino Leyva MD [facility] X-Ray 03/31/18 09:40 IMPRESSION: The enteric tube tip lies at the level of the cardia, this should be advanced. D/ / 03/31/2018 12:06:15 Kevin Amaro MD / erika Interpreting Provider: Kevin Amaro MD [facility] X-Ray 03/31/18 10:12 IMPRESSION: Enteric tube in the stomach with the side-port at the level of the cardia. D/ / 03/31/2018 12:07:39 Kevin Amaro MD / erika Interpreting Provider: Kevin Amaro MD Consult Discharge Plan - Plan Referrals: Kathy Acosta DO [Resident] - (2) Cholelithiasis Qualifiers: Cholelithiasis location: gallbladder Cholecystitis presence: without cholecystitis Biliary obstruction: without biliary obstruction Qualified Code( s): K80.20 - Calculus of gallbladder without cholecystitis without obstruction (3) Sepsis Qualifiers: Sepsis type: sepsis due to unspecified organism Qualified Code(s): A41.9 - Sepsis, unspecified organism (5) CAD (coronary artery disease) Qualifiers: Coronary Disease-Associated Artery/Lesion type: [place] artery [place] vs. transplanted heart: [place] heart Associated angina: without angina Qualified Code(s): I25.10 - Atherosclerotic heart disease of [place] coronary artery without angina pectoris (6) COPD (chronic obstructive pulmonary disease) Qualifiers: COPD type: chronic bronchitis Chronic bronchitis type: mucopurulent Qualified Code(s): J41.1 - Mucopurulent chronic bronchitis (7) Pneumonia Qualifiers: Pneumonia type: due to unspecified organism Laterality: bilateral Lung location: lower lobe of lung Qualified Code(s): J18.1 - Lobar pneumonia, unspecified organism (11) Diabetes type 2, controlled Qualifiers: Diabetes mellitus [facility] insulin use: with exterminator use Diabetes mellitus complication status: with hyperglycemia Qualified Code(s): E11.65 - Type 2 diabetes mellitus with hyperglycemia; Z79.4 - medical terminologist (current) use of insulin (12) HTN (hypertension) Qualifiers: Hypertension type: essential hypertension Qualified Code(s): I10 - Essential (primary) hypertension (16) Chest pain Qualifiers: Chest pain type: chest pain due to myocardial ischemia Ischemic chest pain type: unstable angina pectoris Qualified Code(s): I20.0 - Unstable angina
[2018-03-31] MEDS: traZODone 50 MG TABLET PO SCH (21:33)
[2018-04-01] MEDS: Ipratropium/Albuterol Neb 3 ML IH SCH ×7 (00:24→23:02)
[2018-04-01] MEDS: *HR* Heparin 5,000 UNIT/ML VIAL SQ SCH ×3 (05:46→21:30)
[2018-04-01 06:40] LABS: Basophils # 0.1 K/mcL (0.0-0.2); Basophils % 0.3 %; Eosinophils # 0.3 K/mcL (0.0-0.6); Eosinophils % 1.3 %; Hematocrit 33.9 % (35.3-44.9); Hemoglobin 9.9 g/dL (11.5-15.4); Lymphocytes % 16.6 %; Mean Corpuscular HGB Conc 29.2 g/dL (31.6-35.5); Mean Corpuscular Hemoglobin 22.2 pg (28.0-33.3); Mean Platelet Volume 12.8 fL (9.4-12.4); Monocytes # 1.2 K/mcL (0.0-1.3); Monocytes % 5.1 %; Neutrophils # 17.8 K/mcL (1.6-8.9); Nucleated Red Blood Cells 1.3 /100 WBC (0); Platelet Count 411 K/mcL (140-400); Red Blood Count 4.46 M/mcL (3.82-4.97); Red Cell Distribution Width 20.5 % (11.5-14.5); Segmented Neutrophils % 74.7 %
[2018-04-01 06:49] LABS: INR 1.5; Prothrombin Time 16.9 Seconds (9.4-12.1)
[2018-04-01 07:02] LABS: Alanine Aminotransferase 58 Units/L (7-52); Albumin 2.4 g/dL (3.5-5.7); Albumin/Globulin Ratio 0.7 (1.1-2.2); Alkaline Phosphatase 233 Units/L (34-104); Aspartate Amino Transferase 44 Units/L (13-39); BUN/Creatinine Ratio 17 (6-26); Bilirubin,Total 0.3 mg/dL (0.3-1.0); Blood Urea Nitrogen 9 mg/dL (8-23); Calcium 8.2 mg/dL (8.6-10.3); Carbon Dioxide 33 mEq/L (23-29); Chloride 101 mEq/L (98-107); Globulin 3.3 g/dL (2.4-3.5); Glucose 96 mg/dL (70-105); Magnesium 1.6 mg/dL (1.6-2.6); Osmolality,Calculated 289 (280-300); Potassium 3.7 mEq/L (3.5-5.1); Sodium 140 mEq/L (136-145); Total Protein 5.7 g/dL (6.4-8.9); eGFR For Non-African Americans > 60 (> 60)
[2018-04-01] MEDS: Beclomethasone 80mcg MDI IH SCH ×2 (07:40→19:57)
[2018-04-01] MEDS: Tiotropium 18 MCG inhalation IH SCH (07:42)
--- NOTE | 2018-04-01 09:35 | Internal Med Progress Note ---
<Mathew Sawant - Last Filed: 04/01/18 13:56> Hospitalist Progress Note - Encounter Date of Encounter: 04/01/18 Time of Encounter: 13:56 - Subjective Interval History: Patient was examined while lying in bed. She removed her NG tube last night due to not being able to sleep with it. She states that her abdominal pain is improving, and her diarrhea has improved as well. She had 3 bowel movements yesterday, and they were thicker than before. She denies nausea, vomiting, chest pain, shortness of breath, palpitations. Patient expressed desire to eat solid food. She had no other concerns at this time. - Exam Vitals: Temp Pulse Resp BP Pulse Ox 98.7 F 67 18 156/57 97 04/01/18 07:07 04/01/18 07:07 04/01/18 07:42 04/01/18 07:07 04/01/18 07:42 Exam: Gen: female lying comfortably in bed. Alert, awake, Oriented to time, place and person. Not in acute distress Chest: Diminished breath sounds B/L, Expiratory wheezes with crackles. Heart: S1S2+ RRR No murmurs Abd: Soft, non-distended. Tender to palpation in right upper quadrant and epigastric region. BS +, No organomegaly Ext: No edema, pulses are palpable, No calf tenderness Neuro : Benign findings Skin: No rash. - Assessment and Plan (1) C. difficile colitis Current Visit: Yes Status: Acute Assessment and Plan: -Reduced BM with more formed stools -WBC downtrending. 23.9 today from 27.4 yesterday -Oral vancomycin day 6. Reduce from 50omg QID to 150mg QID -Continue with probiotics (2) Acute and chronic respiratory failure with hypoxia Current Visit: Yes Status: Acute Assessment and Plan: -Likely 2/2 multifocal pneumonia -On 10 L O2 currently. Baseline O2 is 2 L at home -Clinically looks better. Attempt to wean down to baseline -On zosyn day 3. Continue -Duoneb PRN (3) Pneumonia Current Visit: Yes Status: Acute Assessment and Plan: CT abd/pelvis showed multifocal pneumonia - strep, legionella are ngeative - mycoplasma pending - resp panel pending - continue O2 support - duonebs Q4H linda, Q2H prn continue zosyn (4) Cholelithiasis Current Visit: Yes Status: Acute Assessment and Plan: -CT abdomen on 03/30 showed cholelithiasis without acute cholecystits -Surgery on board. No surgical intervention planned at this time -Patient on clear liquid diet. Advance diet per surgery -Continue with supportive care (5) COPD (chronic obstructive pulmonary disease) Current Visit: No Status: Chronic Assessment and Plan: -Acute COPD exacerbation likely 2/2 pneumonia -Lasix 20mg IV BID -Continue with duoneb Q4h prn -Continue O2 supplementation. Currently oxymask 10 L -Continue with Qvar and spiriva (6) Hypomagnesemia Current Visit: Yes Status: Acute Assessment and Plan: -Magnesium 1.6 today -Continue to monitor and replace (7) CAD (coronary artery disease) Current Visit: Yes Status: Chronic Assessment and Plan: -Hx of CABG x 5 -Continue with ASA, statin, and plavix -Continue telemetry -Cardiology signed off. Recommend outpatient stress test and follow up (8) History of CVA (cerebrovascular accident) Current Visit: No Status: Chronic Assessment and Plan: -Hx of CVA on ASA -Continue with ASA and plavix (9) Diabetes Current Visit: No Status: Chronic Assessment and Plan: Continue with SSI - Time Spent with Patient Total time spent is greater than 50% in coordination of care (as documented) at patient's floor/unit and/or counseling patient: Internal Medicine: Result - Labs CBC & Chem 7: 04/01/18 06:12 04/01/18 06:12 Labs: Short CBC 04/01/18 Range/Units 06:12 WBC 23.9 H (4.3-11.1) K/mcL Hgb 9.9 L (11.5-15.4) g/dL Hct 33.9 L (35.3-44.9) % Plt Count 411 H (140-400) K/mcL Neutrophils # 17.8 H (1.6-8.9) K/mcL BMP 04/01/18 06:12 Sodium 140 Potassium 3.7 Chloride 101 Carbon Dioxide 33 H BUN 9 Creatinine 0.54 L Glucose 96 Calcium 8.2 L Liver Function 04/01/18 Range/Units 06:12 Total Bilirubin 0.3 (0.3-1.0) mg/dL AST 44 H (13-39) Units/L ALT 58 H (7-52) Units/L Alkaline Phosphatase 233 H (34-104) Units/L Albumin 2.4 L (3.5-5.7) g/dL - ABG Interpretation ABG results: ABG ABG pH 7.42 pH Units (7.32-7.45) 03/28/18 20:10 ABG pCO2 43 mmHg (35-45) 03/28/18 20:10 ABG pO2 55 mmHg (85-104) L 03/28/18 20:10 ABG O2 Saturation 88 % (95-98) L 03/28/18 20:10 PT/INR, D-dimer PT 16.9 Seconds (9.4-12.1) H 04/01/18 06:12 - Impressions Impressions KUB X-Ray 03/31/18 09:40 IMPRESSION: The enteric tube tip lies at the level of the cardia, this should be advanced. D/ / 03/31/2018 12:06:15 Kevin Amaro MD / erika Interpreting Provider: Kevin Amaro MD X-Ray 03/31/18 10:12 IMPRESSION: Enteric tube in the stomach with the side-port at the level of the cardia. D/ / 03/31/2018 12:07:39 Kevin Amaro MD / erika Interpreting Provider: Kevin Amaro MD Consult Discharge Plan - Plan Referrals: Kathy Acosta DO [Resident] - <Alex Parham - Last Filed: 04/01/18 18:17> Hospitalist Progress Note - Encounter Date of Encounter: 04/01/18 - Exam Vitals: Temp Pulse Resp BP Pulse Ox 99.3 F 65 16 172/71 96 04/01/18 15:20 04/01/18 15:20 04/01/18 16:26 04/01/18 15:20 04/01/18 16:26 - Assessment and Plan (1) Ileus Current Visit: Yes Status: Acute (2) Cholelithiasis Current Visit: Yes Status: Acute (3) Sepsis Current Visit: No Status: Resolved (4) Acute and chronic respiratory failure with hypoxia Current Visit: Yes Status: Acute (5) CAD (coronary artery disease) Current Visit: Yes Status: Chronic (6) COPD (chronic obstructive pulmonary disease) Current Visit: Yes Status: Acute (7) Pneumonia Current Visit: Yes Status: Resolved (8) C. difficile colitis Current Visit: Yes Status: Acute (9) Hypomagnesemia Current Visit: Yes Status: Acute (10) Chronic anemia Current Visit: Yes Status: Acute (11) Diabetes type 2, controlled Current Visit: Yes Status: Acute (12) HTN (hypertension) Current Visit: Yes Status: Chronic (13) History of CVA (cerebrovascular accident) Current Visit: No Status: Chronic (14) Weight loss Current Visit: Yes Status: Acute (15) Hypokalemia Current Visit: Yes Status: Acute (16) Chest pain Current Visit: Yes Status: Resolved - Time Spent with Patient Total time spent is greater than 50% in coordination of care (as documented) at patient's floor/unit and/or counseling patient: Internal Medicine: Result - Labs CBC & Chem 7: 04/01/18 06:12 04/01/18 06:12 Labs: Short CBC 04/01/18 Range/Units 06:12 WBC 23.9 H (4.3-11.1) K/mcL Hgb 9.9 L (11.5-15.4) g/dL Hct 33.9 L (35.3-44.9) % Plt Count 411 H (140-400) K/mcL Neutrophils # 17.8 H (1.6-8.9) K/mcL BMP 04/01/18 06:12 Sodium 140 Potassium 3.7 Chloride 101 Carbon Dioxide 33 H BUN 9 Creatinine 0.54 L Glucose 96 Calcium 8.2 L Liver Function 04/01/18 Range/Units 06:12 Total Bilirubin 0.3 (0.3-1.0) mg/dL AST 44 H (13-39) Units/L ALT 58 H (7-52) Units/L Alkaline Phosphatase 233 H (34-104) Units/L Albumin 2.4 L (3.5-5.7) g/dL - ABG Interpretation ABG results: ABG ABG pH 7.42 pH Units (7.32-7.45) 03/28/18 20:10 ABG pCO2 43 mmHg (35-45) 03/28/18 20:10 ABG pO2 55 mmHg (85-104) L 03/28/18 20:10 ABG O2 Saturation 88 % (95-98) L 03/28/18 20:10 PT/INR, D-dimer PT 16.9 Seconds (9.4-12.1) H 04/01/18 06:12 - Impressions Impressions Abdomen/Pelvis CT 03/30/18 15:43 IMPRESSION: 1. Cholelithiasis with possible slight thickening of the gallbladder wall. Gallstones are present in the gallbladder neck. No significant pericholecystic inflammation is seen. If there is high clinical concern for acute cholecystitis, further evaluation with HIDA scan may be of use. 2. Diffuse dilation of the small bowel with fluid and air, most suggestive of ileus. The stomach is mildly distended. 3. Mild distention of the stomach. D/ / 03/30/2018 19:30:46 Zeferino Leyva MD / aleena Interpreting Provider: Zeferino Leyva MD Chest X-Ray 04/01/18 11:06 IMPRESSION: Continued patchy bilateral airspace disease, greatest in the left mid to lower lung, along with pulmonary vascular congestion. Pulmonary edema and pneumonia both considered in this case. All in all, this appears similar to mildly decreased when compared to the previous exam. D/ / Jatin Chavira MD / Jatin Chavira MD Interpreting Provider: Jatin Chavira MD - Attending Attestation I examined this patient and my medical decision-making was reviewed with the Resident Physician Dr. Salas. I agree with the documented findings, disposition and treatment plan as described except to the extent set forth below. Ms. Lauren is a 63 y/o F admitted here with sepsis due to multi focal pneumonia. Pt also c/o abdominal pain. Her CT of Abd today which showed multi focal pneumonia, non specific moderate distension of gallbladder, mild to moderate distention of small bowel several loops concerning for obstruction. Her C. Diff came back as positive. She was started on oral vancomycin 500 mg Q ID . Her diarrhea improved now. However patient still complained about severe nausea and vomiting . Her CT of abdomen showed cholelithiasis with no acute cholecystitis and diffuse dilation of the small bowel with fluid and air suggestive of ileus. Patient did not keep of NG tube last night. However today her nausea to be little better and she is tolerating clear liquid diet well. Her WBC also improving. Pt still on 10 lit O2 through Oxy mask. Will obtain CXR today, will give Lasix if she needs. Advance diet as surgery recommends. cut back on vancomycin to 125mg QID <Mtahew Sawant R - Last Filed: 04/01/18 13:56> (4) Cholelithiasis Qualifiers: Cholelithiasis location: gallbladder Cholecystitis presence: without cholecystitis Biliary obstruction: without biliary obstruction Qualified Code( s): K80.20 - Calculus of gallbladder without cholecystitis without obstruction (5) COPD (chronic obstructive pulmonary disease) Qualifiers: COPD type: COPD with acute exacerbation Qualified Code(s): J44.1 - Chronic obstructive pulmonary disease with (acute) exacerbation (7) CAD (coronary artery disease) Qualifiers: Coronary Disease-Associated Artery/Lesion type: [place] artery [place] vs. transplanted heart: [place] heart Associated angina: without angina Qualified Code(s): I25.10 - Atherosclerotic heart disease of [place] coronary artery without angina pectoris (9) Diabetes Qualifiers: Diabetes mellitus type: type 2 Diabetes mellitus detention insulin use: unspecified product development technician insulin use status Diabetes mellitus complication status : without complication Qualified Code(s): E11.9 - Type 2 diabetes mellitus without complications <RachelarcenioAlex - Last Filed: 04/01/18 18:17> (2) Cholelithiasis Qualifiers: Cholelithiasis location: gallbladder Cholecystitis presence: without cholecystitis Biliary obstruction: without biliary obstruction Qualified Code( s): K80.20 - Calculus of gallbladder without cholecystitis without obstruction (3) Sepsis Qualifiers: Sepsis type: sepsis due to unspecified organism Qualified Code(s): A41.9 - Sepsis, unspecified organism (5) CAD (coronary artery disease) Qualifiers: Coronary Disease-Associated Artery/Lesion type: [place] artery [place] vs. transplanted heart: [place] heart Associated angina: without angina Qualified Code(s): I25.10 - Atherosclerotic heart disease of [place] coronary artery without angina pectoris (6) COPD (chronic obstructive pulmonary disease) Qualifiers: COPD type: chronic bronchitis Chronic bronchitis type: mucopurulent Qualified Code(s): J41.1 - Mucopurulent chronic bronchitis (7) Pneumonia Qualifiers: Pneumonia type: due to unspecified organism Laterality: bilateral Lung location: lower lobe of lung Qualified Code(s): J18.1 - Lobar pneumonia, unspecified organism (11) Diabetes type 2, controlled Qualifiers: Diabetes mellitus product development technician insulin use: with detention use Diabetes mellitus complication status: with hyperglycemia Qualified Code(s): E11.65 - Type 2 diabetes mellitus with hyperglycemia; 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
[2018-04-01] MEDS: Insulin LISPRO 300 UNITS/3 ML VIAL SQ SCH ×4 (10:02→22:11)
[2018-04-01] MEDS: Piperacillin/Tazobactam 3.375 GM in 0.9 % Sodium Chloride Mini Bag 100 ML IVPB SCH ×3 (10:02→23:42)
[2018-04-01] MEDS: Lactobacillus 1 EACH CAP.SPRINK PO SCH ×2 (10:02→21:30)
[2018-04-01] MEDS: Metoprolol 100 MG TABLET PO SCH ×2 (10:03→21:30)
[2018-04-01] MEDS: Aspirin 81 MG TAB.CHEW PO SCH (10:03)
[2018-04-01] MEDS: Vancomycin Oral Soln 125 MG/2.5 ML UDC PO SCH ×4 (10:03→21:30)
[2018-04-01] MEDS: Magnesium Oxide 400 MG TABLET PO SCH (10:03)
[2018-04-01] MEDS: Lisinopril 20 MG TABLET PO SCH (10:03)
[2018-04-01] MEDS: Gabapentin 100 MG CAPSULE PO SCH ×3 (10:03→21:30)
[2018-04-01 15:04] LABS: Mycoplasma pneumoniae IgG 0.3 U/L (<=0.09)
[2018-04-01] MEDS: Furosemide 20 MG/2 ML VIAL IVP SCH (18:05)
[2018-04-01] MEDS: OXYCODONE Oral CONC 10 MG/0.5 ML ORAL.SYG SL PRN (18:12)
[2018-04-01] MEDS: traZODone 50 MG TABLET PO SCH (21:30)
[2018-04-02] MEDS: Ipratropium/Albuterol Neb 3 ML IH SCH ×6 (04:47→23:58)
[2018-04-02] MEDS: *HR* Heparin 5,000 UNIT/ML VIAL SQ SCH ×3 (05:09→20:30)
[2018-04-02 06:45] LABS: Basophils # 0.1 K/mcL (0.0-0.2); Basophils % 0.3 %; Eosinophils # 0.5 K/mcL (0.0-0.6); Hematocrit 33.2 % (35.3-44.9); Hemoglobin 9.7 g/dL (11.5-15.4); Immature Granulocytes % 1.4 % (0-4); Lymphocytes # 4.1 K/mcL (0.6-4.6); Lymphocytes % 18.1 %; Mean Corpuscular HGB Conc 29.2 g/dL (31.6-35.5); Mean Corpuscular Hemoglobin 22.1 pg (28.0-33.3); Mean Corpuscular Volume 75.6 fL (83.0-100.0); Mean Platelet Volume 12.3 fL (9.4-12.4); Monocytes # 0.7 K/mcL (0.0-1.3); Monocytes % 3.1 %; Neutrophils # 16.9 K/mcL (1.6-8.9); Nucleated Red Blood Cells 0.7 /100 WBC (0); Platelet Count 389 K/mcL (140-400); Red Blood Count 4.39 M/mcL (3.82-4.97); Red Cell Distribution Width 20.6 % (11.5-14.5); Segmented Neutrophils % 75.1 %
[2018-04-02 06:52] LABS: INR 1.6; Prothrombin Time 17.8 Seconds (9.4-12.1)
[2018-04-02 07:11] LABS: BUN/Creatinine Ratio 16 (6-26); Blood Urea Nitrogen 8 mg/dL (8-23); Calcium 7.9 mg/dL (8.6-10.3); Carbon Dioxide 32 mEq/L (23-29); Chloride 99 mEq/L (98-107); Glucose 120 mg/dL (70-105); Osmolality,Calculated 290 (280-300); Potassium 3.2 mEq/L (3.5-5.1); Sodium 140 mEq/L (136-145); eGFR For Non-African Americans > 60 (> 60)
[2018-04-02] MEDS: Tiotropium 18 MCG inhalation IH SCH (07:19)
[2018-04-02] MEDS: Beclomethasone 80mcg MDI IH SCH ×2 (07:33→19:31)
--- NOTE | 2018-04-02 08:20 | General Surgery Progress Note ---
Date of Encounter: 04/02/18 Time of Encounter: 08:18 - Assessment and Plan (1) Abdominal pain Current Visit: Yes Status: Acute 63F with abdominal pain; uncertain etiology, but likely compounded by c. diff; WBC improving; tolerating liquids, having bowel function; advance diet as tolerated no acute surgery Qualifiers: Abdominal location: generalized Qualified Code(s): R10.84 - Generalized abdominal pain Subjective Patient reports: no new complaints, tolerating liquids well, other Objective Vital Signs - Last 8 Hours Temp Pulse Resp BP Pulse Ox 04/02/18 07:34 16 94 04/02/18 07:19 98.7 F 72 18 123/59 91 04/02/18 04:47 15 92 04/02/18 04:41 98.2 F 72 16 156/89 93 Intake and Output 04/01/18 04/02/18 04/02/18 23:59 07:59 15:59 Intake Total 100 / 100 100 / 100 Output Total 450 / 450 850 / 850 Balance -350 / -350 -750 / -750 Intake: IV Fluids 100 / 100 100 / 100 Zosyn 3.375 GM In 0.9 % Sodium 100 / 100 100 / 100 Chloride (Mini-Bag +) 100 ML @ 25 mls/hr IVPB Q8HR [facility] Rx#: [id number] Oral 0 / 0 0 / 0 Output: Catheter 450 / 450 850 / 850 Other: Stool Size Small Small Stool Consistency loose loose soft Stool Color Brown Green Green # Bowel Movements 1 Weight 64.3 kg Blood Glucose* 177 123 Patient Weight 04/02/18 23:59 Weight 64.3 kg - General physical appearance no distress - Respiratory normal expansion - Cardiovascular Cardiovascular exam: Present: RRR - Abdomen Abdomen: Present: soft, tender (non peritonea; no hung's sign) - Neurologic CN 2-12 grossly intact - Labs 04/02/18 06:17 04/02/18 06:17 Diabetes panel 04/02/18 Range/Units 06:17 Sodium 140 (136-145) mEq/L Potassium 3.2 L (3.5-5.1) mEq/L Chloride 99 (98-107) mEq/L Carbon Dioxide 32 H (23-29) mEq/L BUN 8 (8-23) mg/dL Creatinine 0.51 L (0.60-1.20) mg/dL Glucose 120 H (70-105) mg/dL Calcium 7.9 L (8.6-10.3) mg/dL Calcium panel 04/02/18 Range/Units 06:17 Calcium 7.9 L (8.6-10.3) mg/dL Pituitary panel 04/02/18 Range/Units 06:17 Sodium 140 (136-145) mEq/L Potassium 3.2 L (3.5-5.1) mEq/L Chloride 99 (98-107) mEq/L Carbon Dioxide 32 H (23-29) mEq/L BUN 8 (8-23) mg/dL Creatinine 0.51 L (0.60-1.20) mg/dL Glucose 120 H (70-105) mg/dL Calcium 7.9 L (8.6-10.3) mg/dL Adrenal panel 04/02/18 Range/Units 06:17 Sodium 140 (136-145) mEq/L Potassium 3.2 L (3.5-5.1) mEq/L Chloride 99 (98-107) mEq/L Carbon Dioxide 32 H (23-29) mEq/L BUN 8 (8-23) mg/dL Creatinine 0.51 L (0.60-1.20) mg/dL Glucose 120 H (70-105) mg/dL Calcium 7.9 L (8.6-10.3) mg/dL Consult Discharge Plan - Plan Referrals: Kathy Acosta DO [Resident] -
[2018-04-02] MEDS: Insulin LISPRO 300 UNITS/3 ML VIAL SQ SCH ×4 (08:50→21:38)
--- NOTE | 2018-04-02 09:13 | Internal Med Progress Note ---
<Mathew Sawant - Last Filed: 04/02/18 16:26> Hospitalist Progress Note - Encounter Date of Encounter: 04/02/18 Time of Encounter: 15:08 - Subjective Interval History: Patient was examined while lying in bed. She states that she is feeling a lot better. She had 2 bowel movements yesterday. They are soft stools, but thicker than before. She denies chest tightness, chest pain, SOB, increased cough, nausea, vomiting. Patient able to tolerate solid diet without abominal pain, nausea, or vomiting. She has no concerns at this time. - Exam Vitals: Temp Pulse Resp BP Pulse Ox 98.7 F 72 16 123/59 94 04/02/18 07:19 04/02/18 07:19 04/02/18 07:34 04/02/18 07:19 04/02/18 07:34 Exam: General - female lying in bed. On nasal cannula Cardiovascular - RRR no m/r/g, no JVD, no carotid bruits Lungs - Diffuse expiratory wheezing Psychiatry - Affect congruent with mood Abdomen - Normal bowel sounds, abdomen mildly tender to palpation in epigastric and right upper quadrant Extremeties - No edema, cyanosis or clubbing Neurological Alert and oriented x 3, CN 2-12 grossly intact. - Assessment and Plan (1) C. difficile colitis Current Visit: Yes Status: Acute Assessment and Plan: -Positive C. diff toxin PCR. Patient was having 5-6 BM a day -Patient had 2 BM yesterday with more formed stools -WBC downtrending. WBC 22.5 today -Oral vancomycin day 7. Reduced to 125 mg -Continue with probiotics (2) Acute and chronic respiratory failure with hypoxia Current Visit: Yes Status: Acute Assessment and Plan: -Likely 2/2 multifocal pneumonia vs CHF vs less likely COPD exacerbation -CT abdomen/pelvis shows multifocal pneumonia -ECHO on 03/25/2018 showed EF 70% with mild dystolic dysfunction -Chest x ray shows pulmonary edema vs pneumonia -Currently on 6L O2. Baseline is 2L O2 at home -Continue duoneb prn and O2 support -Attempt to wean down O2 -Lasix 20mg IV BID -Zosyn day 5. Continue (3) Pneumonia Current Visit: Yes Status: Acute Assessment and Plan: -Plan as above -ID consulted for deescalation of antibiotics. Appreciate recommendations (4) Cholelithiasis Current Visit: Yes Status: Acute Assessment and Plan: -CT abdomen on 03/30 showed cholelithiasis without acute cholecystits -Surgery on board. No surgical intervention planned at this time -Patient tolerating solid diet without abdominal pain, nausea, or vomiting -Continue with supportive care (5) COPD (chronic obstructive pulmonary disease) Current Visit: No Status: Chronic Assessment and Plan: -Possible Acute COPD exacerbation likely 2/2 pneumonia -Continue with duoneb Q4h prn -Continue O2 supplementation. Currently oxymask 6 L -Continue with Qvar and spiriva (6) Hypomagnesemia Current Visit: Yes Status: Acute Assessment and Plan: -Magnesium 1.5 today -Losses likely 2/2 diarrhea -Replace magnesium (7) CAD (coronary artery disease) Current Visit: Yes Status: Chronic Assessment and Plan: -Hx of CABG x 5 -Continue with ASA, statin, and plavix -Continue telemetry -Cardiology signed off. Recommend outpatient stress test and follow up (8) History of CVA (cerebrovascular accident) Current Visit: No Status: Chronic Assessment and Plan: -Hx of CVA while on ASA -Continue with ASA and plavix (9) Diabetes Current Visit: No Status: Chronic Assessment and Plan: -Controlled while inpatient -Continue with SSI - Time Spent with Patient Total time spent is greater than 50% in coordination of care (as documented) at patient's floor/unit and/or counseling patient: Internal Medicine: Result - Labs CBC & Chem 7: 04/02/18 06:17 04/02/18 06:17 Labs: Short CBC 04/02/18 Range/Units 06:17 WBC 22.5 H (4.3-11.1) K/mcL Hgb 9.7 L (11.5-15.4) g/dL Hct 33.2 L (35.3-44.9) % Plt Count 389 (140-400) K/mcL Neutrophils # 16.9 H (1.6-8.9) K/mcL BMP 04/02/18 06:17 Sodium 140 Potassium 3.2 L Chloride 99 Carbon Dioxide 32 H BUN 8 Creatinine 0.51 L Glucose 120 H Calcium 7.9 L - ABG Interpretation ABG results: ABG ABG pH 7.42 pH Units (7.32-7.45) 03/28/18 20:10 ABG pCO2 43 mmHg (35-45) 03/28/18 20:10 ABG pO2 55 mmHg (85-104) L 03/28/18 20:10 ABG O2 Saturation 88 % (95-98) L 03/28/18 20:10 PT/INR, D-dimer PT 17.8 Seconds (9.4-12.1) H 04/02/18 06:17 - Impressions Impressions Abdomen/Pelvis CT 03/30/18 15:43 IMPRESSION: 1. Cholelithiasis with possible slight thickening of the gallbladder wall. Gallstones are present in the gallbladder neck. No significant pericholecystic inflammation is seen. If there is high clinical concern for acute cholecystitis, further evaluation with HIDA scan may be of use. 2. Diffuse dilation of the small bowel with fluid and air, most suggestive of ileus. The stomach is mildly distended. 3. Mild distention of the stomach. D/ / 03/30/2018 19:30:46 Zeferino Leyva MD / aleena Interpreting Provider: Zeferino Leyva MD Chest X-Ray 04/01/18 11:06 IMPRESSION: Continued patchy bilateral airspace disease, greatest in the left mid to lower lung, along with pulmonary vascular congestion. Pulmonary edema and pneumonia both considered in this case. All in all, this appears similar to mildly decreased when compared to the previous exam. D/ / Jatin Chavira MD / Jatin Chavira MD Interpreting Provider: Jatin Chavira MD Consult Discharge Plan - Plan Referrals: Kathy Acosta DO [Resident] - <Evette Melendez - Last Filed: 04/02/18 17:57> Hospitalist Progress Note - Encounter Date of Encounter: 04/02/18 - Exam Vitals: Temp Pulse Resp BP Pulse Ox 98.9 F 86 16 99/68 89 04/02/18 16:02 04/02/18 16:02 04/02/18 16:26 04/02/18 16:02 04/02/18 16:26 - Assessment and Plan (1) Sepsis Current Visit: No Status: Resolved (2) HTN (hypertension) Current Visit: Yes Status: Chronic (3) CAD (coronary artery disease) Current Visit: Yes Status: Chronic (4) Hypokalemia Current Visit: Yes Status: Acute (5) Chest pain Current Visit: Yes Status: Resolved (6) Weight loss Current Visit: Yes Status: Acute (7) History of CVA (cerebrovascular accident) Current Visit: No Status: Chronic (8) COPD (chronic obstructive pulmonary disease) Current Visit: Yes Status: Acute (9) Pneumonia Current Visit: Yes Status: Resolved (10) C. difficile colitis Current Visit: Yes Status: Acute (11) Cholelithiasis Current Visit: Yes Status: Acute (12) Hypomagnesemia Current Visit: Yes Status: Acute (13) Chronic anemia Current Visit: Yes Status: Acute (14) Diabetes type 2, controlled Current Visit: Yes Status: Acute (15) Acute and chronic respiratory failure with hypoxia Current Visit: Yes Status: Acute (16) Ileus Current Visit: Yes Status: Acute - Time Spent with Patient Total time spent is greater than 50% in coordination of care (as documented) at patient's floor/unit and/or counseling patient: Internal Medicine: Result - Labs CBC & Chem 7: 04/02/18 06:17 04/02/18 06:17 Labs: Short CBC 04/02/18 Range/Units 06:17 WBC 22.5 H (4.3-11.1) K/mcL Hgb 9.7 L (11.5-15.4) g/dL Hct 33.2 L (35.3-44.9) % Plt Count 389 (140-400) K/mcL Neutrophils # 16.9 H (1.6-8.9) K/mcL BMP 04/02/18 06:17 Sodium 140 Potassium 3.2 L Chloride 99 Carbon Dioxide 32 H BUN 8 Creatinine 0.51 L Glucose 120 H Calcium 7.9 L - ABG Interpretation ABG results: ABG ABG pH 7.42 pH Units (7.32-7.45) 03/28/18 20:10 ABG pCO2 43 mmHg (35-45) 03/28/18 20:10 ABG pO2 55 mmHg (85-104) L 03/28/18 20:10 ABG O2 Saturation 88 % (95-98) L 03/28/18 20:10 PT/INR, D-dimer PT 17.8 Seconds (9.4-12.1) H 04/02/18 06:17 - Attending Attestation I have seen and examined this pt independently. I have discussed with resident physician Dr. Salas and rotating medical student regarding the management plan. Agree with the documentation. <Mathew Sawant - Last Filed: 04/02/18 16:26> (4) Cholelithiasis Qualifiers: Cholelithiasis location: gallbladder Cholecystitis presence: without cholecystitis Biliary obstruction: without biliary obstruction Qualified Code( s): K80.20 - Calculus of gallbladder without cholecystitis without obstruction (5) COPD (chronic obstructive pulmonary disease) Qualifiers: COPD type: COPD with acute exacerbation Qualified Code(s): J44.1 - Chronic obstructive pulmonary disease with (acute) exacerbation (7) CAD (coronary artery disease) Qualifiers: Coronary Disease-Associated Artery/Lesion type: [place] artery [place] vs. transplanted heart: [place] heart Associated angina: without angina Qualified Code(s): I25.10 - Atherosclerotic heart disease of [place] coronary artery without angina pectoris (9) Diabetes Qualifiers: Diabetes mellitus type: type 2 Diabetes mellitus terminal supervisor insulin use: unspecified terminal supervisor insulin use status Diabetes mellitus complication status : without complication Qualified Code(s): E11.9 - Type 2 diabetes mellitus without complications <Evette Melendez - Last Filed: 04/02/18 17:57> (1) Sepsis Qualifiers: Sepsis type: sepsis due to unspecified organism Qualified Code(s): A41.9 - Sepsis, unspecified organism (2) HTN (hypertension) Qualifiers: Hypertension type: essential hypertension Qualified Code(s): I10 - Essential (primary) hypertension (3) CAD (coronary artery disease) Qualifiers: Coronary Disease-Associated Artery/Lesion type: [place] artery [place] vs. transplanted heart: [place] heart Associated angina: without angina Qualified Code(s): I25.10 - Atherosclerotic heart disease of [place] coronary artery without angina pectoris (5) Chest pain Qualifiers: Chest pain type: chest pain due to myocardial ischemia Ischemic chest pain type: unstable angina pectoris Qualified Code(s): I20.0 - Unstable angina (8) COPD (chronic obstructive pulmonary disease) Qualifiers: COPD type: chronic bronchitis Chronic bronchitis type: mucopurulent Qualified Code(s): J41.1 - Mucopurulent chronic bronchitis (9) Pneumonia Qualifiers: Pneumonia type: due to unspecified organism Laterality: bilateral Lung location: lower lobe of lung Qualified Code(s): J18.1 - Lobar pneumonia, unspecified organism (11) Cholelithiasis Qualifiers: Cholelithiasis location: gallbladder Cholecystitis presence: without cholecystitis Biliary obstruction: without biliary obstruction Qualified Code( s): K80.20 - Calculus of gallbladder without cholecystitis without obstruction (14) Diabetes type 2, controlled Qualifiers: Diabetes mellitus terminal supervisor insulin use: with terminal supervisor use Diabetes mellitus complication status: with hyperglycemia Qualified Code(s): E11.65 - Type 2 diabetes mellitus with hyperglycemia; Z79.4 - USP (current) use of insulin
[2018-04-02 09:38] LABS: Magnesium 1.5 mg/dL (1.6-2.6)
[2018-04-02] MEDS: Furosemide 20 MG/2 ML VIAL IVP SCH ×2 (10:12→18:43)
[2018-04-02] MEDS: Piperacillin/Tazobactam 3.375 GM in 0.9 % Sodium Chloride Mini Bag 100 ML IVPB SCH ×2 (10:20→16:10)
[2018-04-02] MEDS: Lactobacillus 1 EACH CAP.SPRINK PO SCH ×2 (10:25→20:29)
[2018-04-02] MEDS: Gabapentin 100 MG CAPSULE PO SCH ×3 (10:26→20:30)
[2018-04-02] MEDS: Metoprolol 100 MG TABLET PO SCH ×2 (10:26→20:30)
[2018-04-02] MEDS: Aspirin 81 MG TAB.CHEW PO SCH (10:27)
[2018-04-02] MEDS: Magnesium Oxide 400 MG TABLET PO SCH (10:27)
[2018-04-02] MEDS: Lisinopril 20 MG TABLET PO SCH (10:27)
[2018-04-02] MEDS: Vancomycin Oral Soln 125 MG/2.5 ML UDC PO SCH ×3 (12:49→20:32)
[2018-04-02] MEDS: traZODone 50 MG TABLET PO SCH (20:29)
[2018-04-02] MEDS: OXYCODONE Oral CONC 10 MG/0.5 ML ORAL.SYG SL PRN (21:45)
[2018-04-03] MEDS: Piperacillin/Tazobactam 3.375 GM in 0.9 % Sodium Chloride Mini Bag 100 ML IVPB SCH ×3 (00:14→14:44)
[2018-04-03] MEDS: Ipratropium/Albuterol Neb 3 ML IH SCH ×6 (04:17→23:57)
[2018-04-03 04:34] LABS: Red Blood Count 4.73 M/mcL (3.82-4.97)
[2018-04-03 04:36] LABS: Basophils # 0.1 K/mcL (0.0-0.2); Basophils % 0.2 %; Eosinophils # 0.4 K/mcL (0.0-0.6); Eosinophils % 1.8 %; Hematocrit 36.4 % (35.3-44.9); Hemoglobin 10.8 g/dL (11.5-15.4); Immature Granulocytes % 1.2 % (0-4); Lymphocytes # 3.3 K/mcL (0.6-4.6); Lymphocytes % 13.6 %; Mean Corpuscular HGB Conc 29.7 g/dL (31.6-35.5); Mean Corpuscular Hemoglobin 22.8 pg (28.0-33.3); Mean Platelet Volume 12.7 fL (9.4-12.4); Monocytes # 0.8 K/mcL (0.0-1.3); Monocytes % 3.4 %; Neutrophils # 19.4 K/mcL (1.6-8.9); Nucleated Red Blood Cells 0.3 /100 WBC (0); Platelet Count 436 K/mcL (140-400); Red Cell Distribution Width 20.5 % (11.5-14.5); Segmented Neutrophils % 79.8 %
[2018-04-03] MEDS: OXYCODONE Oral CONC 10 MG/0.5 ML ORAL.SYG SL PRN ×3 (04:52→14:57)
[2018-04-03] MEDS: *HR* Heparin 5,000 UNIT/ML VIAL SQ SCH ×3 (04:53→21:21)
[2018-04-03 04:58] LABS: BUN/Creatinine Ratio 15 (6-26); Blood Urea Nitrogen 8 mg/dL (8-23); Calcium 8.3 mg/dL (8.6-10.3); Carbon Dioxide 33 mEq/L (23-29); Chloride 97 mEq/L (98-107); Glucose 139 mg/dL (70-105); Magnesium 1.6 mg/dL (1.6-2.6); Osmolality,Calculated 289 (280-300); Potassium 3.6 mEq/L (3.5-5.1); Sodium 139 mEq/L (136-145); eGFR For Non-African Americans > 60 (> 60)
[2018-04-03 05:36] LABS: Hypochromasia Present (Not Present); Target Cells 1+ (Not Present)
[2018-04-03] MEDS: Beclomethasone 80mcg MDI IH SCH ×2 (07:58→20:03)
[2018-04-03] MEDS: Tiotropium 18 MCG inhalation IH SCH (07:58)
[2018-04-03] MEDS: Magnesium Oxide 400 MG TABLET PO SCH (09:07)
[2018-04-03] MEDS: Lisinopril 20 MG TABLET PO SCH (09:07)
[2018-04-03] MEDS: Metoprolol 100 MG TABLET PO SCH ×2 (09:07→21:19)
[2018-04-03] MEDS: Aspirin 81 MG TAB.CHEW PO SCH (09:07)
[2018-04-03] MEDS: Gabapentin 100 MG CAPSULE PO SCH ×3 (09:07→21:19)
[2018-04-03] MEDS: Furosemide 20 MG/2 ML VIAL IVP SCH ×2 (09:07→16:16)
[2018-04-03] MEDS: Lactobacillus 1 EACH CAP.SPRINK PO SCH ×2 (09:07→21:19)
[2018-04-03] MEDS: Vancomycin Oral Soln 125 MG/2.5 ML UDC PO SCH ×4 (09:08→21:20)
[2018-04-03] MEDS: Insulin LISPRO 300 UNITS/3 ML VIAL SQ SCH ×3 (09:09→16:23)
--- NOTE | 2018-04-03 11:15 | Infectious Disease Consult ---
Date of Encounter: 04/03/18 Time of Encounter: 11:00 Assessment and Plan (1) Sepsis Status: Resolved Assessment and plan: secondary to C diff and possible pneumonia Qualifiers: Sepsis type: sepsis due to unspecified organism Qualified Code(s): A41.9 - Sepsis, unspecified organism (2) Abdominal pain Status: Acute Assessment and plan: secondary to C diff colitis concern for other etiology enlight of the CT findings including ileus/enteritis/ esophagitis etc recommend repeating CT abdomen/pelvis consider GI consult check lipas/amylase and LFT's Qualifiers: Abdominal location: generalized Qualified Code(s): R10.84 - Generalized abdominal pain (3) C. difficile colitis Status: Acute Assessment and plan: Severe currently on vancomycin orally dose at 125mg po q 6 hrs no signs of toxic megacolon on imaging, will consider IV flagyl if patient does worse clinically and increasing vanco po to [address] chest to rule out pneumonia, if negative. we will d/c zosyn to minimize complications of the C diff (4) Ileus Status: Acute (5) Leukocytosis Status: Acute Assessment and plan: secondary to C diff and ileus and maybe pneumonia as well Qualifiers: Leukocytosis type: unspecified Qualified Code(s): D72.829 - Elevated white blood cell count, unspecified (6) Pneumonia Status: Acute Assessment and plan: causative organism unclear negative urine antigens CXR and 1/2 CT's were negative; one CT concerning for bibasilar pneumonia on check RIP check MRSA screen continue zosyn for now no signs of aspiartion Qualifiers: Pneumonia type: due to unspecified organism Laterality: bilateral Lung location: lower lobe of lung Qualified Code(s): J18.1 - Lobar pneumonia, unspecified organism (7) UTI (urinary tract infection) due to urinary indwelling Chandra catheter Status: Acute Qualifiers: Indwelling urinary catheter type: indwelling urethral catheter Encounter type: subsequent encounter Qualified Code(s): T83.511D - Infection and inflammatory reaction due to indwelling urethral catheter, subsequent encounter ; N39.0 - Urinary tract infection, site not specified Infectious Disease HPI - Data of Consult Patient: new to practice Consult date: 04/03/18 Requesting Physician: Evette Melendez MD Primary Care Provider: PCP NONE - Consult Narrative Reason for consult: Persistent leukocytosis, positive C. difficile and questionable pneumonia History of present illness: Ms. Lauren is a 63 year old female Patient is a 63-year-old woman who presented to [facility] on 03/25/2019 with chest pain, we are consulted on 04/03/2018 for leukocytosis, C. difficile colitis and questionable pneumonia. Patient is 63-year-old woman with past medical history mentioned below was seen by us previously in 2017 for MRSA bacteremia and right lower extremity cellulitis and myositis and also history of her tract infection with Serratia marcescens also has history of CHF, COPD, coronary artery disease, history of CVA and DVT, diabetes mellitus type 2, hyperlipidemia hypertension and history of AR in the past apparently has been having chest pain that started 6 hours prior to admission while laying in bed. Were no alleviating or aggravating factors. The pain was substernal sharp without radiation. Patient presented to the ED for evaluation. On further questioning patient denied any fevers or chills. Patient apparently had a 40 pound weight loss in the last 2 months secondary to poor diet and oral intake. Patient also has an indwelling Chandra catheter secondary to urinary incontinence after having multiple strokes. Since admission, patient had a few episodes of fever on March 25, March 28 and April 01. She has had no tachycardia but had tachycardia multiple occasions. Presenting labs revealed a WBC of 29.3 which peaked at 44,000. Agent had neutrophil predominance and on 03/26/2018 she had bandemia 14%. Chemistry revealed normal kidney function. Her hemoglobin A1c was 6.8. Patient also initially was noted to have a troponin leak with a troponin of 0.19. A urinalysis done on March 25 revealed pyuria and large leukocyte esterase. C. difficile was obtained on 03/26/2015 which came back positive. Urine culture from March 25 revealed mixed organism resembling possible pathogens. The urinalysis was not contaminated and did not have too many squamous cells. Repeat urine was submitted but I do not see the results. Blood cultures were obtained and March 25 and are no growth to date. Urine legionella and pneumococcal antigen were also obtained and both came back negative. Initial chest x-ray done on March 25 revealed no acute process. A repeat chest x-ray was obtained on 04/01/2018 which is now read as continued patchy bilateral air space disease greater in the left mid to lower lung along with pulmonary vascular congestion. Pulmonary edema and pneumonia both considered in this case. All and all this appears similar to mildly decreased when compared to the previous exam. A CT abdomen and pelvis was done on 2017 and it was read as"finding consistent with presence of bibasilar parenchymal disease, left more so than right with visualization of subtle areas of nodularity within both lung bases findings raise possibility of change of multifocal pneumonia. Cholelithiasis. Visualization of small focal area of fluid attenuation adjacent to pancreatic head, gallbladder and duodenal sweep [place] physiology of the finding is indeterminate. Change associated with inflammatory process involving the adjacent structures is in the differential diagnosis. Mild prominence of mural thickening of the distal esophagus raises the possibility of changes of mild esophagitis. Mild prominence of mural thickness of pyloric antrum finding could be related to incomplete distention/ peristalsis although changes of underlying peptic ulcer disease cannot be excluded. Mild/moderate distention of several loops of small bowel the abdomen/ pelvis findings could be on the basis of ileus. Low-grade partial obstruction is also a possibility. High-grade obstruction is felt to be unlikely due to visualization of contrast material within the colon. Prominence of mural thickness of several loops of small bowel in the right lower quadrant/pelvis. Findings could be related to incomplete distention/peristalsis although changes of underlying enteritis are in the differential diagnosis. A repeat CT abdomen and pelvis done on 03/30/2018 which essentially read diffuse dilation of the small bowels with fluid in her most suggestive of ileus. The stomach is mildly distended. Did not make a mention of any pulmonary issues. Patient was started on IV Zosyn and oral vancomycin. We were asked to evaluate the patient' s make further recommendations. Currently, patient laying in bed. appears ill. states she had 2 watery bowel movement today. continues to have nausea and had a single episode of vomiting. no pleuritic chest pain. no cough, no sputum production. No urinary symptoms CC: Evette Melendez MD Past Med Surg Social Fam HX - Past Medical History Medical history: cancer, CHF, COPD, coronary artery disease, CVA, DVT, diabetes , hyperlipidemia, hypertension, myocardial infarction Additional medical history: GALLSTONES, HERNIA Psychiatric history: anxiety, depression - Past Surgical History Surgical History: breast surgery, cancer surgery, carotid endarterectomy, coronary bypass (CABG), LE vascular intervention Additional surgical history: cervical cancer, breast cancer - Social History Smoking Status: Current every day smoker Packs per day: 1 Smokeless Tobacco Status: No Alcohol use: none Drug use: none - Family History Mother Living Status: Hx Family Cancer: Yes (carcinoma kidney(s)) Hx Family Endocrine Disorder: Yes (DM) Infectious Disease-CN:Meds Aspirin [Lo-Dose Aspirin EC] 81 mg PO DAILY 01/28/17 [History] Cholecalciferol (Vitamin D3) [Vitamin D3] 1,000 unit PO DAILY 01/28/17 [History] Clopidogrel [Plavix] 75 mg PO DAILY 01/28/17 [History] Furosemide [Lasix] 40 mg PO DAILY 01/28/17 [History] Guaifenesin [Mucinex] 600 mg PO BID PRN 01/28/17 [History] Insulin ASPART [Novolog Flexpen] 10 unit SQ TIDAC MDD plus sliding sale [History] Insulin Glargine,Hum.rec.anlog [Lantus Solostar] 25 unit SQ HS 01/28/17 [History ] Ipratropium/Albuterol Neb [Duoneb] 3 ml IH Q6HR PRN 01/28/17 [History] Lisinopril [Zestril] 20 mg PO DAILY 01/28/17 [History] Metformin HCl [Glucophage] 1,000 mg PO BID 01/28/17 [History] Metoprolol [Lopressor] 100 mg PO BID 01/28/17 [History] Ropinirole HCl [Requip] 0.25 - 0.5 mg PO HS 01/28/17 [History] Sertraline [Zoloft] 50 mg PO DAILY 01/28/17 [History] Tiotropium [Spiriva] 1 cap IH DAILY 01/28/17 [History] Acetaminophen [Tylenol] 500 mg PO Q4H PRN 03/26/18 [History] Amitriptyline [Elavil] 25 mg PO HS 03/26/18 [History] Amlodipine Besylate 10 mg PO DAILY 03/26/18 [History] Atorvastatin [Lipitor] 40 mg PO HS 03/26/18 [History] Gabapentin [Neurontin] 300 mg PO BID 03/26/18 [History] Ibuprofen [Ibu] 600 mg PO Q6H PRN 03/26/18 [History] Multivitamin [One Daily Multivitamin] 1 tab PO DAILY 03/26/18 [History] Pantoprazole Sodium [Protonix] 40 mg PO DAILY 03/26/18 [History] SitaGLIPtin [Januvia] 100 mg PO DAILY 03/26/18 [History] Albuterol Neb [Proventil Neb] 2.5 mg IH Q4-6H PRN 03/27/18 [History] Beclomethasone Dip 40mcg REDIH [Qvar 40 mcg REDIHALER] 1 puff IH BID 03/27/18 [ History] Calcium Carb/Magnesium Hydrox [Antacid Extra Strngth Tab Chew] 1 tab PO DAILY [History] 3 Allergy/AdvReac Type Severity Reaction Status Date / Time Iodinated Contrast- Oral and Allergy Anaphylaxis Verified 03/26/18 14:33 IV Dye [Iodinated Contrast Media - Oral and] Review of systems: 1o point ROS done, negative other for what's mentioned in the HPI Exam - Constitutional Vitals: Temp Pulse Resp BP Pulse Ox 98.5 F 74 17 176/82 94 04/03/18 08:04 04/03/18 08:04 04/03/18 08:04 04/03/18 08:04 04/03/18 09:00 General appearance: cooperative, disheveled, mild distress, no febrile - Head Head exam: Present: atraumatic, normocephalic - Eye Eye exam: Present: EOMI, PERRL, sclera anicteric - ENT ENT exam: Present: mucous membranes dry - Neck Neck exam: Present: normal inspection. Absent: meningismus - Respiratory Respiratory exam: Present: CTAB, rhonchi. Absent: wheezes Additional comments: ronchi at the bases. poor inspiratory effort - Cardiovascular Cardiovascular exam: Present: RRR, +S1, +S2 - GI/Abdominal GI/Abdominal exam: Present: guarding, normal bowel sounds, tenderness. Absent: firm Additional comments: diffuse tendernes with gaurding tenderness worse in the eipgastric region and RUQ - Extremities Exam Extremities exam: Present: full ROM, normal inspection - Neurological Exam Neurological exam: Present: alert, oriented X3 - Psychiatric Psychiatric exam: Present: normal affect, normal mood - Skin Skin exam: Present: normal color. Absent: rash Infectious Disease CN: Results - Labs CBC & Chem 7: 04/03/18 03:47 04/03/18 03:47 Cultures: Cultures 03/27/18 04:15 Legionella Antigen - Final Urine,[place] Streptococcus pneumoniae Antigen (M - Final Serology: Serology 03/29/18 03/27/18 03/26/18 Range/Units 08:40 04:15 20:10 Urine Color Yellow (Yellow) Urine Clarity Clear (Clear) Urine pH 5.5 (5.0-8.0) pH Units Ur Specific Joseph 1.023 (1.010-1.025) Urine Protein Negative (Neg-Trace) mg/dL Urine Glucose (UA) Normal (Normal) mg/dL Urine Ketones Negative (Negative) mg/dL Urine Blood Trace H (Negative) Urine Nitrite Negative (Negative) Urine Bilirubin Negative (Negative) Urine Urobilinogen Normal (Normal) mg/dL Ur Leukocyte Esterase Small H (Negative) Urine Microscopic RBC 3-5 H (0-3) per hpf Urine Microscopic WBC 5-15 H (0-3) per hpf Ur Squamous Epith Cells Many H (None-Few) per lpf Urine Bacteria None Seen (None-Few) per hpf Hyaline Casts Few (None-Few) per lpf Urine Yeast Test Not Performed Ur Culture Indicated? NO. A (NO) Stl C. cayetanensis PCR (Not detect) Stool Rotavirus A PCR (Not detect) Stl Adenov F 40/41 PCR (Not detect) Stool Astrovirus (PCR) (Not detect) Stool Campylobacter PCR (Not detect) Stl C. diff Tox B Gene Positive A (Negative) Stl C. diff Tox A/B PCR (Not detect) Stool Cryptosporidium PCR (Not detect) Stl Sh Tox Pr E STEC PCR (Not detect) Stool E coli O157 PCR (Not detect) Stl Enterotoxigenic E PCR (Not detect) Stool EPEC (PCR) (Not detect) Stool EAEC (PCR) (Not detect) Stl E. histolytica PCR (Not detect) Stool Giardia Lamblia PCR (Not detect) Stool Salmonella PCR (Not detect) Stool Sapovirus (PCR) (Not detect) Stl P. shigelloides PCR (Not detect) Stl Shigella/EIEC PCR (Not detect) St Y.enterocolitica PCR (Not detect) Stool Vibrio (PCR) (Not detect) Stl Vibrio cholerae PCR (Not detect) Stl Norovirus GI/GII PCR (Not detect) Stl GI Panel (PCR) Com Mycoplasma pneumon IgG 0.30 H (<=0.09) U/L Mycoplasma pneumon IgM 0.06 (<=0.76) U/L 03/26/18 Range/Units 20:10 Urine Color (Yellow) Urine Clarity (Clear) Urine pH (5.0-8.0) pH Units Ur Specific Joseph (1.010-1.025) Urine Protein (Neg-Trace) mg/dL Urine Glucose (UA) (Normal) mg/dL Urine Ketones (Negative) mg/dL Urine Blood (Negative) Urine Nitrite (Negative) Urine Bilirubin (Negative) Urine Urobilinogen (Normal) mg/dL Ur Leukocyte Esterase (Negative) Urine Microscopic RBC (0-3) per hpf Urine Microscopic WBC (0-3) per hpf Ur Squamous Epith Cells (None-Few) per lpf Urine Bacteria (None-Few) per hpf Hyaline Casts (None-Few) per lpf Urine Yeast Ur Culture Indicated? (NO) Stl C. cayetanensis PCR Not detected (Not detect) Stool Rotavirus A PCR Not detected (Not detect) Stl Adenov F 40/41 PCR Not detected (Not detect) Stool Astrovirus (PCR) Not detected (Not detect) Stool Campylobacter PCR Not detected (Not detect) Stl C. diff Tox B Gene (Negative) Stl C. diff Tox A/B PCR See reflex test A (Not detect) Stool Cryptosporidium PCR Not detected (Not detect) Stl Sh Tox Pr E STEC PCR Not detected (Not detect) Stool E coli O157 PCR Not detected (Not detect) Stl Enterotoxigenic E PCR Not detected (Not detect) Stool EPEC (PCR) Not detected (Not detect) Stool EAEC (PCR) Not detected (Not detect) Stl E. histolytica PCR Not detected (Not detect) Stool Giardia Lamblia PCR Not detected (Not detect) Stool Salmonella PCR Not detected (Not detect) Stool Sapovirus (PCR) Not detected (Not detect) Stl P. shigelloides PCR Not detected (Not detect) Stl Shigella/EIEC PCR Not detected (Not detect) St Y.enterocolitica PCR Not detected (Not detect) Stool Vibrio (PCR) Not detected (Not detect) Stl Vibrio cholerae PCR Not detected (Not detect) Stl Norovirus GI/GII PCR Not detected (Not detect) Stl GI Panel (PCR) Com See below Mycoplasma pneumon IgG (<=0.09) U/L Mycoplasma pneumon IgM (<=0.76) U/L Consult Discharge Plan - Plan Referrals: Kathy cAosta DO [Resident] -
--- NOTE | 2018-04-03 16:11 | Internal Med Progress Note ---
Hospitalist Progress Note - Encounter Date of Encounter: 04/03/18 Time of Encounter: 09:00 - Subjective Interval History: Pt is weak, c/o abd pain, nausea, and vomiting. Has cough. No fever. - Exam Vitals: Temp Pulse Resp BP Pulse Ox 98.4 F 67 16 207/91 90 04/03/18 11:30 04/03/18 11:30 04/03/18 11:34 04/03/18 11:30 04/03/18 11:34 Exam: General - female lying in bed. On nasal cannula Cardiovascular - RRR no m/r/g, no JVD, no carotid bruits Lungs - Scattered expiratory wheezing Psychiatry - Affect congruent with mood Abdomen - Normal bowel sounds, abdomen mildly tender to palpation in epigastric and right upper quadrant Extremeties - No edema, cyanosis or clubbing Neurological Alert and oriented x 3, CN 2-12 grossly intact. Residual right side weakness from previous CVA. - Assessment and Plan (1) Sepsis Current Visit: No Status: Resolved Assessment and Plan: Due to C diff colitis and a pneumonia WBC Still high ID consulted, recommendation will be followed. Pt is not respond to abx treatment well, prognosis is guarded. (2) HTN (hypertension) Current Visit: Yes Status: Chronic Assessment and Plan: Stable with current medication continue current regimen (3) CAD (coronary artery disease) Current Visit: Yes Status: Chronic Assessment and Plan: Prior history, CABG x 5. Continue ASA, statin, plavix, Continue telemetry. Cardiology signed off, recommending outpatient stress test and follow up. Pt denies chest pain. (4) Hypokalemia Current Visit: Yes Status: Acute Assessment and Plan: Resolved (5) Chest pain Current Visit: Yes Status: Resolved Assessment and Plan: Presented for chest pain. Troponin max 0.23, decreased to 0.19. Cardiology consulted and believes this to be due to demand ischemia/ NSTEMI II due to UTI. EKG NSR echo, normal EF 70% Continue ASA, statin, Plavix, metoprolol Cardiology signed off, stress test outpatient Pt has no chest pain now. (6) Weight loss Current Visit: Yes Status: Acute Assessment and Plan: -Nutrition consulted, recommended Ensure twice a day (7) History of CVA (cerebrovascular accident) Current Visit: No Status: Chronic Assessment and Plan: CVA X2, Continue ASA and Plavix - Will consult speech therapy for a full swallow evaluation as pt has persist pneumonia. (8) COPD (chronic obstructive pulmonary disease) Current Visit: Yes Status: Acute Assessment and Plan: Acute COPD exacerbation as patient's O2 demand is increasing, in the setting of pneumonia Lasix PRN Cont Duoneb Q4H linda, Q2H prn O2 supplement as needed, Oxymask 5 L currently continue Qvar, Spiriva (9) Pneumonia Current Visit: Yes Status: Resolved Assessment and Plan: CT abd/pelvis showed multifocal pneumonia - strep, legionella are ngeative - mycoplasma pending - resp panel negative - continue O2 support - duonebs Q4H linda, Q2H prn continue broad-spectrum antibiotic zosyn. - ID consult. - Abd CT shows fluid in esophagus, pt has hx of CVA, need to r/o aspiration, hold diet now, speech evaluation. (10) C. difficile colitis Current Visit: Yes Status: Acute Assessment and Plan: Repeat abd CT shows no signs of toxic magacolon. Cont po Vanco. Zofran for nausea on probiotics. ID consult. (11) Cholelithiasis Current Visit: Yes Status: Acute Assessment and Plan: Her CT of abdomen did not show any acute cholecystitis continue symptomatic and supportive care (12) Hypomagnesemia Current Visit: Yes Status: Acute Assessment and Plan: Continue replacing as needed. (13) Chronic anemia Current Visit: Yes Status: Acute Assessment and Plan: Anemia of chronic disease. But concern for iron deficiency concurrently due to multiple months of diarrhea. Iron low, transferritin low, awaiting ferritin level. (14) Diabetes type 2, controlled Current Visit: Yes Status: Acute Assessment and Plan: Holding home meds. Currently well controlled on LSSI. (15) Acute and chronic respiratory failure with hypoxia Current Visit: Yes Status: Acute Assessment and Plan: Due to pneumonia and physical deconditioning continue Neb treatments as needed continue zosyn at this point. (16) Ileus Current Visit: Yes Status: Acute Assessment and Plan: CT of abdomen showed small bowel obstruction/ileus surgery consulted and appreciate their recommendations continue symptomatic and supportive care Maintain electrolytes in normal limit. (17) Abdominal pain Current Visit: Yes Status: Acute Assessment and Plan: May be due to C Diff colitis or ileus. Abd CT shows no other significant changes except colitis. - Hold diet at this point b/o concern for aspiration. - Recheck amylase, lipase, and liver function. DVT Prophylaxis: Heparin SQ - Time Spent with Patient Total time spent is greater than 50% in coordination of care (as documented) at patient's floor/unit and/or counseling patient: 40 min Greater than 35 minutes Plan of Care Discussed with: nurse Internal Medicine: Result - Labs CBC & Chem 7: 04/03/18 03:47 04/03/18 03:47 Labs: Short CBC 04/03/18 Range/Units 03:47 WBC 24.3 H (4.3-11.1) K/mcL Hgb 10.8 L (11.5-15.4) g/dL Hct 36.4 (35.3-44.9) % Plt Count 436 H (140-400) K/mcL Neutrophils # 19.4 H (1.6-8.9) K/mcL BMP 04/03/18 03:47 Sodium 139 Potassium 3.6 Chloride 97 L Carbon Dioxide 33 H BUN 8 Creatinine 0.52 L Glucose 139 H Calcium 8.3 L - ABG Interpretation ABG results: ABG ABG pH 7.42 pH Units (7.32-7.45) 03/28/18 20:10 ABG pCO2 43 mmHg (35-45) 03/28/18 20:10 ABG pO2 55 mmHg (85-104) L 03/28/18 20:10 ABG O2 Saturation 88 % (95-98) L 03/28/18 20:10 PT/INR, D-dimer PT 17.8 Seconds (9.4-12.1) H 04/02/18 06:17 - Impressions Impressions Abdomen/Pelvis CT 04/03/18 10:02 IMPRESSION: Multifocal pneumonia, greatest in the left lower lobe. Scattered bronchial wall thickening is seen. Secretions are seen in the airways. Trace left-sided effusion is seen. More focal patchy nodularity is seen superiorly in the left upper lobe. Recommend follow-up to radiographic are solution Esophagus is fluid-filled to above the level of the jak.. Consider reflux. Decreased small bowel distention when compared to prior. There is mild small bowel wall thickening in left upper quadrant. Consider enteritis as a cause for the small bowel wall thickening in the appropriate clinical scenario. Cholelithiasis. Small amount of gas within the bladder. Correlate with urinalysis to exclude cystitis D/ / Richard Earl MD / Richard Earl MD Interpreting Provider: Richard Earl MD Chest CT 04/03/18 10:02 IMPRESSION: Multifocal pneumonia, greatest in the left lower lobe. Scattered bronchial wall thickening is seen. Secretions are seen in the airways. Trace left-sided effusion is seen. More focal patchy nodularity is seen superiorly in the left upper lobe. Recommend follow-up to radiographic are solution Esophagus is fluid-filled to above the level of the jak.. Consider reflux. Decreased small bowel distention when compared to prior. There is mild small bowel wall thickening in left upper quadrant. Consider enteritis as a cause for the small bowel wall thickening in the appropriate clinical scenario. Cholelithiasis. Small amount of gas within the bladder. Correlate with urinalysis to exclude cystitis D/ / Richard Earl MD / Richard Earl MD Interpreting Provider: Richard Earl MD Consult Discharge Plan - Plan Referrals: Kathy Acosta DO [Resident] - (1) Sepsis Qualifiers: Sepsis type: sepsis due to unspecified organism Qualified Code(s): A41.9 - Sepsis, unspecified organism (2) HTN (hypertension) Qualifiers: Hypertension type: essential hypertension Qualified Code(s): I10 - Essential (primary) hypertension (3) CAD (coronary artery disease) Qualifiers: Coronary Disease-Associated Artery/Lesion type: [place] artery [place] vs. transplanted heart: [place] heart Associated angina: without angina Qualified Code(s): I25.10 - Atherosclerotic heart disease of [place] coronary artery without angina pectoris (5) Chest pain Qualifiers: Chest pain type: chest pain due to myocardial ischemia Ischemic chest pain type: unstable angina pectoris Qualified Code(s): I20.0 - Unstable angina (8) COPD (chronic obstructive pulmonary disease) Qualifiers: COPD type: chronic bronchitis Chronic bronchitis type: mucopurulent Qualified Code(s): J41.1 - Mucopurulent chronic bronchitis (9) Pneumonia Qualifiers: Pneumonia type: due to unspecified organism Laterality: bilateral Lung location: lower lobe of lung Qualified Code(s): J18.1 - Lobar pneumonia, unspecified organism (11) Cholelithiasis Qualifiers: Cholelithiasis location: gallbladder Cholecystitis presence: without cholecystitis Biliary obstruction: without biliary obstruction Qualified Code( s): K80.20 - Calculus of gallbladder without cholecystitis without obstruction (14) Diabetes type 2, controlled Qualifiers: Diabetes mellitus penitentiary insulin use: with penitentiary use Diabetes mellitus complication status: with hyperglycemia Qualified Code(s): E11.65 - Type 2 diabetes mellitus with hyperglycemia; Z79.4 - terminal makeup 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 (17) Abdominal pain Qualifiers: Abdominal location: generalized Qualified Code(s): R10.84 - Generalized abdominal pain
[2018-04-03] MEDS: amLODIPine 5 MG TABLET PO SCH (16:16)
[2018-04-03] MEDS: 0.9 % Sodium Chloride 1,000 ML IVC SCH (17:52)
[2018-04-03] MEDS: traZODone 50 MG TABLET PO SCH (21:19)
[2018-04-04] MEDS: Piperacillin/Tazobactam 3.375 GM in 0.9 % Sodium Chloride Mini Bag 100 ML IVPB SCH ×3 (00:11→16:38)
[2018-04-04] MEDS: Insulin LISPRO 300 UNITS/3 ML VIAL SQ SCH ×4 (00:30→19:07)
[2018-04-04] MEDS: OXYCODONE Oral CONC 10 MG/0.5 ML ORAL.SYG SL PRN ×3 (00:36→18:57)
[2018-04-04] MEDS: 0.9 % Sodium Chloride 1,000 ML IVC SCH ×2 (04:22→16:49)
[2018-04-04] MEDS: Ipratropium/Albuterol Neb 3 ML IH SCH ×7 (04:28→23:56)
[2018-04-04 06:05] LABS: Monocytes % 3.8 %; Nucleated Red Blood Cells 0.1 /100 WBC (0); Red Cell Distribution Width 20.6 % (11.5-14.5)
[2018-04-04 06:06] LABS: Basophils % 0.1 %; Eosinophils # 0.3 K/mcL (0.0-0.6); Eosinophils % 1.5 %; Hematocrit 33.8 % (35.3-44.9); Hemoglobin 9.7 g/dL (11.5-15.4); Immature Granulocytes % 0.7 % (0-4); Lymphocytes # 3.4 K/mcL (0.6-4.6); Mean Corpuscular HGB Conc 28.7 g/dL (31.6-35.5); Mean Corpuscular Volume 76.8 fL (83.0-100.0); Monocytes # 0.8 K/mcL (0.0-1.3); Neutrophils # 16.4 K/mcL (1.6-8.9); Platelet Count 407 K/mcL (140-400); Segmented Neutrophils % 77.9 %
[2018-04-04 06:24] LABS: Platelet Estimate Increased (Normal)
[2018-04-04 06:25] LABS: Anisocytosis 2+ (Not Present); Hypochromasia Present (Not Present); Macrocytosis Present (Not Present); Microcytosis Present (Not Present); Poikilocytosis 1+ (Not Present); Tear Drop Cells 1+ (Not Present)
[2018-04-04] MEDS: *HR* Heparin 5,000 UNIT/ML VIAL SQ SCH ×3 (06:25→22:18)
[2018-04-04 06:28] LABS: BUN/Creatinine Ratio 20 (6-26); Blood Urea Nitrogen 9 mg/dL (8-23); Calcium 8.2 mg/dL (8.6-10.3); Carbon Dioxide 33 mEq/L (23-29); Chloride 99 mEq/L (98-107); Glucose 132 mg/dL (70-105); Magnesium 1.5 mg/dL (1.6-2.6); Osmolality,Calculated 289 (280-300); Potassium 3.5 mEq/L (3.5-5.1); Sodium 139 mEq/L (136-145); eGFR For Non-African Americans > 60 (> 60)
[2018-04-04 06:35] LABS: Thyroid Stimulating Hormone 0.469 mcIU/mL (0.340-5.600)
[2018-04-04] MEDS: Beclomethasone 80mcg MDI IH SCH ×2 (07:51→20:27)
[2018-04-04] MEDS: Tiotropium 18 MCG inhalation IH SCH (07:52)
[2018-04-04] MEDS: Metoprolol 100 MG TABLET PO SCH ×2 (08:40→22:16)
[2018-04-04] MEDS: Gabapentin 100 MG CAPSULE PO SCH ×3 (08:40→22:16)
[2018-04-04] MEDS: Aspirin 81 MG TAB.CHEW PO SCH (08:40)
[2018-04-04] MEDS: Lisinopril 20 MG TABLET PO SCH (08:40)
[2018-04-04] MEDS: Magnesium Oxide 400 MG TABLET PO SCH (08:40)
[2018-04-04] MEDS: Furosemide 20 MG/2 ML VIAL IVP SCH ×2 (08:40→16:38)
[2018-04-04] MEDS: amLODIPine 5 MG TABLET PO SCH (08:40)
[2018-04-04] MEDS: Lactobacillus 1 EACH CAP.SPRINK PO SCH ×2 (08:40→22:16)
[2018-04-04] MEDS: Vancomycin Oral Soln 125 MG/2.5 ML UDC PO SCH ×4 (08:41→22:16)
--- NOTE | 2018-04-04 09:52 | Internal Med Progress Note ---
<Mathew Sawant - Last Filed: 04/04/18 14:51> Hospitalist Progress Note - Encounter Date of Encounter: 04/04/18 Time of Encounter: 13:18 - Subjective Interval History: Patient was examined while lying in bed. She is complaining of sharp pain in the right side of the chest that is reproducible with palpation. She states that it started again yesterday. She is also complaining of pain in her left arm where the IV site was. The IV was changed to the right arm. She is stating that her abdominal pain is the same as before. Patient endorses a productive cough that is similar to what she has had chronically at home. She only had 1 BM yesterday, and it was soft stool. She denies palpitations, SOB, night sweats , nausea, vomiting. - Exam Vitals: Temp Pulse Resp BP Pulse Ox 98.2 F 72 18 149/70 89 04/04/18 06:50 04/04/18 06:50 04/04/18 07:52 04/04/18 06:50 04/04/18 07:52 Exam: General - female lying in bed. On nasal cannula. Not in acute distress Cardiovascular - RRR no m/r/g, no JVD, no carotid bruits Lungs - Diffuse expiratory wheezing Psychiatry - Affect congruent with mood Abdomen - Normal bowel sounds, abdomen mildly tender to palpation in epigastric and right upper quadrant Extremeties - Right LE red, warm, tender to palpation, and slightly swollen. Left UE swollen and tender to palpation at IV site. Ulcer at dorsum of right foot. Seems chronic and not infected. Neurological Alert and oriented x 3 - Assessment and Plan (1) C. difficile colitis Current Visit: Yes Status: Acute Assessment and Plan: -Patient was having 5-6 watery stools per day. She had a positive C diff toxin PCR -Had 1 BM yesterday. Soft stools, but no longer watery -WBC 21, but downtrending -CT abdomen/pelvis did not show toxic megacolon -Continue oral Vancomycin day 9 125mg -Continue with probiotics (2) Acute and chronic respiratory failure with hypoxia Current Visit: Yes Status: Acute Assessment and Plan: Likely 2/2 multifocal pneumonia vs CHF vs less likely COPD exacerbation -CT abdomen/pelvis shows multifocal pneumonia -ECHO on 03/25/2018 showed EF 70% with mild dystolic dysfunction -Chest x ray shows pulmonary edema vs pneumonia -Currently on 4L O2. Baseline is 2L O2 at home -Continue duoneb prn and O2 support -Attempt to wean down O2 -Lasix 20mg IV BID -Zosyn day 7. Continue (3) Pneumonia Current Visit: Yes Status: Acute Assessment and Plan: -CT chest shows multifocal PNA, greatest in the LLL -Plan as above -Swallow eval negative for aspiration. Continue with regular diet (4) Abdominal pain Current Visit: Yes Status: Acute Assessment and Plan: -Positive C diff toxin PCR -CT abdomen 03/26 showed mural thickness of the distal esophagus, pyloric antrum , and several loops of small bowel in the right lower quadrant/pelvis. It also showed gallstones, but did not suggest acute cholecystitis -Etiology for abdominal pain include C. diff colitis, esophagitis, GERD, peptic ulcer disease, biliary colic, enteritis -Patient denies hematemesis, hematochezia, melena. Her vitals and Hgb have been stable -Continue with oral vancomycin 125 mg -Continue zofran prn -Start home med omeprazole 40mg (5) Swelling of right lower extremity Current Visit: Yes Status: Acute Assessment and Plan: -Right LE red, warm, tender to palpation, swollen compared to left LE -Patient chronically bed bound, but on heparin SQ for DVT prophylaxis -Etiology includes cellulitis vs DVT -Venous doppler negative for DVT -Monitor. ID following, appreciate recs (6) Left upper extremity swelling Current Visit: Yes Status: Acute Assessment and Plan: -Left forearm swollen and tender where IV site was -2/2 irritation from IV leak or less likely DVT -IV moved to opposite arm -Doppler negative for DVT -Continue to monitor (7) Cholelithiasis Current Visit: Yes Status: Acute Assessment and Plan: -CT abdomen on 03/30 showed cholelithiasis without acute cholecystits -Surgery on board. No surgical intervention planned at this time -Patient tolerating solid diet without abdominal pain, nausea, or vomiting -Continue with supportive care (8) COPD (chronic obstructive pulmonary disease) Current Visit: No Status: Suspected Assessment and Plan: -Possible Acute COPD exacerbation likely 2/2 pneumonia, but unlikely -Continue with duoneb Q4h prn -Continue O2 supplementation. Currently 4L O2 via NC -Continue with Qvar and spiriva (9) CAD (coronary artery disease) Current Visit: Yes Status: Chronic Assessment and Plan: -Hx of CABG x 5 in 2004 -Continue with ASA, statin, and plavix -Continue telemetry -Cardiology signed off. Recommend outpatient stress test and follow up (10) History of CVA (cerebrovascular accident) Current Visit: No Status: Chronic Assessment and Plan: -Hx of CVA while on ASA -Continue with ASA and plavix (11) HTN (hypertension) Current Visit: Yes Status: Chronic Assessment and Plan: -Stable on current medications -Continue current regimen (12) Chest pain Current Visit: Yes Status: Resolved Assessment and Plan: -Presented for chest pain. Troponin max 0.23, decreased to 0.19. Cardiology was consulted and believed this to be due to demand ischemia/ NSTEMI II 2/2 UTI. EKG NSR -ECHO 03/25/2018 showed EF 70% with mild dyastolic dysfunction -Continue with ASA, statin, and plavix -Continue telemetry -Cardiology signed off. Recommend outpatient stress test and follow up (13) Diabetes Current Visit: No Status: Chronic Assessment and Plan: -Controlled while inpatient -Continue with SSI (14) Weight loss Current Visit: Yes Status: Acute Assessment and Plan: -Nutrition consulted. Recommend ensure twice a day - Time Spent with Patient Total time spent is greater than 50% in coordination of care (as documented) at patient's floor/unit and/or counseling patient: Internal Medicine: Result - Labs CBC & Chem 7: 04/04/18 05:46 04/04/18 05:46 Labs: Short CBC 04/04/18 Range/Units 05:46 WBC 21.0 H (4.3-11.1) K/mcL Hgb 9.7 L (11.5-15.4) g/dL Hct 33.8 L (35.3-44.9) % Plt Count 407 H (140-400) K/mcL Neutrophils # 16.4 H (1.6-8.9) K/mcL BMP 04/04/18 05:46 Sodium 139 Potassium 3.5 Chloride 99 Carbon Dioxide 33 H BUN 9 Creatinine 0.46 L Glucose 132 H Calcium 8.2 L - ABG Interpretation ABG results: ABG ABG pH 7.42 pH Units (7.32-7.45) 03/28/18 20:10 ABG pCO2 43 mmHg (35-45) 03/28/18 20:10 ABG pO2 55 mmHg (85-104) L 03/28/18 20:10 ABG O2 Saturation 88 % (95-98) L 03/28/18 20:10 PT/INR, D-dimer PT 17.8 Seconds (9.4-12.1) H 04/02/18 06:17 - Impressions Impressions Abdomen/Pelvis CT 04/03/18 10:02 IMPRESSION: Multifocal pneumonia, greatest in the left lower lobe. Scattered bronchial wall thickening is seen. Secretions are seen in the airways. Trace left-sided effusion is seen. More focal patchy nodularity is seen superiorly in the left upper lobe. Recommend follow-up to radiographic are solution Esophagus is fluid-filled to above the level of the jak.. Consider reflux. Decreased small bowel distention when compared to prior. There is mild small bowel wall thickening in left upper quadrant. Consider enteritis as a cause for the small bowel wall thickening in the appropriate clinical scenario. Cholelithiasis. Small amount of gas within the bladder. Correlate with urinalysis to exclude cystitis D/ / Richard Earl MD / Richard Earl MD Interpreting Provider: Richard Earl MD Chest CT 04/03/18 10:02 IMPRESSION: Multifocal pneumonia, greatest in the left lower lobe. Scattered bronchial wall thickening is seen. Secretions are seen in the airways. Trace left-sided effusion is seen. More focal patchy nodularity is seen superiorly in the left upper lobe. Recommend follow-up to radiographic are solution Esophagus is fluid-filled to above the level of the jak.. Consider reflux. Decreased small bowel distention when compared to prior. There is mild small bowel wall thickening in left upper quadrant. Consider enteritis as a cause for the small bowel wall thickening in the appropriate clinical scenario. Cholelithiasis. Small amount of gas within the bladder. Correlate with urinalysis to exclude cystitis D/ / Richard Earl MD / Richard Earl MD Interpreting Provider: Richard Earl MD Consult Discharge Plan - Plan Referrals: Kathy Acosta DO [Resident] - <Evette Melendez - Last Filed: 04/04/18 15:21> Hospitalist Progress Note - Encounter Date of Encounter: 04/04/18 - Exam Vitals: Temp Pulse Resp BP Pulse Ox 98.2 F 67 16 148/70 92 04/04/18 14:32 04/04/18 14:32 04/04/18 14:32 04/04/18 14:32 04/04/18 14:32 - Assessment and Plan (1) Sepsis Current Visit: No Status: Resolved (2) HTN (hypertension) Current Visit: Yes Status: Chronic (3) CAD (coronary artery disease) Current Visit: Yes Status: Chronic (4) Hypokalemia Current Visit: Yes Status: Resolved (5) Chest pain Current Visit: Yes Status: Resolved (6) Weight loss Current Visit: Yes Status: Acute (7) History of CVA (cerebrovascular accident) Current Visit: No Status: Chronic (8) COPD (chronic obstructive pulmonary disease) Current Visit: Yes Status: Acute (9) Pneumonia Current Visit: Yes Status: Resolved (10) C. difficile colitis Current Visit: Yes Status: Acute (11) Cholelithiasis Current Visit: Yes Status: Acute (12) Hypomagnesemia Current Visit: Yes Status: Acute (13) Chronic anemia Current Visit: Yes Status: Acute (14) Diabetes type 2, controlled Current Visit: Yes Status: Acute (15) Acute and chronic respiratory failure with hypoxia Current Visit: Yes Status: Acute (16) Ileus Current Visit: Yes Status: Acute (17) Abdominal pain Current Visit: Yes Status: Acute - Time Spent with Patient Total time spent is greater than 50% in coordination of care (as documented) at patient's floor/unit and/or counseling patient: Internal Medicine: Result - Labs CBC & Chem 7: 04/04/18 05:46 04/04/18 05:46 Labs: Short CBC 04/04/18 Range/Units 05:46 WBC 21.0 H (4.3-11.1) K/mcL Hgb 9.7 L (11.5-15.4) g/dL Hct 33.8 L (35.3-44.9) % Plt Count 407 H (140-400) K/mcL Neutrophils # 16.4 H (1.6-8.9) K/mcL BMP 04/04/18 05:46 Sodium 139 Potassium 3.5 Chloride 99 Carbon Dioxide 33 H BUN 9 Creatinine 0.46 L Glucose 132 H Calcium 8.2 L - ABG Interpretation ABG results: ABG ABG pH 7.42 pH Units (7.32-7.45) 03/28/18 20:10 ABG pCO2 43 mmHg (35-45) 03/28/18 20:10 ABG pO2 55 mmHg (85-104) L 03/28/18 20:10 ABG O2 Saturation 88 % (95-98) L 03/28/18 20:10 PT/INR, D-dimer PT 17.8 Seconds (9.4-12.1) H 04/02/18 06:17 - Attending Attestation I have seen and examined this pt independently. I have discussed with resident physician Dr Salas and medical student regarding the management plan. Agree with the documentation. <Mathew Sawant - Last Filed: 04/04/18 14:51> (3) Pneumonia Qualifiers: Pneumonia type: due to unspecified organism Laterality: bilateral Lung location: lower lobe of lung Qualified Code(s): J18.1 - Lobar pneumonia, unspecified organism (7) Cholelithiasis Qualifiers: Cholelithiasis location: gallbladder Cholecystitis presence: without cholecystitis Biliary obstruction: without biliary obstruction Qualified Code( s): K80.20 - Calculus of gallbladder without cholecystitis without obstruction (8) COPD (chronic obstructive pulmonary disease) Qualifiers: COPD type: COPD with acute exacerbation Qualified Code(s): J44.1 - Chronic obstructive pulmonary disease with (acute) exacerbation (9) CAD (coronary artery disease) Qualifiers: Coronary Disease-Associated Artery/Lesion type: [place] artery [place] vs. transplanted heart: [place] heart Associated angina: without angina Qualified Code(s): I25.10 - Atherosclerotic heart disease of [place] coronary artery without angina pectoris (11) HTN (hypertension) Qualifiers: Hypertension type: essential hypertension Qualified Code(s): I10 - Essential (primary) hypertension (12) Chest pain Qualifiers: Chest pain type: chest pain due to myocardial ischemia Ischemic chest pain type: unstable angina pectoris Qualified Code(s): I20.0 - Unstable angina (13) Diabetes Qualifiers: Diabetes mellitus type: type 2 Diabetes mellitus alf insulin use: unspecified alf insulin use status Diabetes mellitus complication status : without complication Qualified Code(s): E11.9 - Type 2 diabetes mellitus without complications <Evette Melendez - Last Filed: 04/04/18 15:21> (1) Sepsis Qualifiers: Sepsis type: sepsis due to unspecified organism Qualified Code(s): A41.9 - Sepsis, unspecified organism (2) HTN (hypertension) Qualifiers: Hypertension type: essential hypertension Qualified Code(s): I10 - Essential (primary) hypertension (3) CAD (coronary artery disease) Qualifiers: Coronary Disease-Associated Artery/Lesion type: [place] artery [place] vs. transplanted heart: [place] heart Associated angina: without angina Qualified Code(s): I25.10 - Atherosclerotic heart disease of [place] coronary artery without angina pectoris (5) Chest pain Qualifiers: Chest pain type: chest pain due to myocardial ischemia Ischemic chest pain type: unstable angina pectoris Qualified Code(s): I20.0 - Unstable angina (8) COPD (chronic obstructive pulmonary disease) Qualifiers: COPD type: chronic bronchitis Chronic bronchitis type: mucopurulent Qualified Code(s): J41.1 - Mucopurulent chronic bronchitis (9) Pneumonia Qualifiers: Pneumonia type: due to unspecified organism Laterality: bilateral Lung location: lower lobe of lung Qualified Code(s): J18.1 - Lobar pneumonia, unspecified organism (11) Cholelithiasis Qualifiers: Cholelithiasis location: gallbladder Cholecystitis presence: without cholecystitis Biliary obstruction: without biliary obstruction Qualified Code( s): K80.20 - Calculus of gallbladder without cholecystitis without obstruction (14) Diabetes type 2, controlled Qualifiers: 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
--- NOTE | 2018-04-04 16:18 | Infectious Disease Progress No ---
Date of Encounter: 04/04/18 Time of Encounter: 16:15 - Assessment and Plan (1) Sepsis Current Visit: No Status: Resolved secondary to C diff and multilobar pneumonia Qualifiers: Sepsis type: sepsis due to unspecified organism Qualified Code(s): A41.9 - Sepsis, unspecified organism (2) Pneumonia Current Visit: Yes Status: Acute causative organism unclear negative urine antigens CXR and 1/2 CT's were negative; one CT concerning for bibasilar pneumonia on ; CT chest on 04/03/2018 reveals multifocal pneumonia greatest in the left lower lobe scattered bronchial wall thickening is seen more focal patchy nodularity seen superiorly in the left upper lobe check RIP continue zosyn for now Add vancomycin Consider pulmonary evaluation no signs of aspiartion Qualifiers: Pneumonia type: due to unspecified organism Laterality: bilateral Lung location: lower lobe of lung Qualified Code(s): J18.1 - Lobar pneumonia, unspecified organism (3) C. difficile colitis Current Visit: Yes Status: Acute Severe currently on vancomycin orally dose at 125mg po q 6 hrs no signs of toxic megacolon on imaging, will consider IV flagyl if patient does worse clinically and increasing vanco po to 500 mg q6 (4) Abdominal pain Current Visit: Yes Status: Acute Secondary to C diff colitis concern for other etiology enlight of the CT findings including ileus/enteritis/ esophagitis etc recommend repeating CT abdomen/pelvis consider GI consult LFTs mildly elevated. Lipase and amylase within normal limits. CT abdomen and pelvis on 04/03/2018: Cholelithiasis, small amount of gas within the bladder. Decreased small bowel distention with small bowel wall thickening in the left upper quadrant; no toxic megacolon Qualifiers: Abdominal location: generalized Qualified Code(s): R10.84 - Generalized abdominal pain (5) Ileus Current Visit: Yes Status: Acute (6) Leukocytosis Current Visit: Yes Status: Acute Qualifiers: Leukocytosis type: unspecified Qualified Code(s): D72.829 - Elevated white blood cell count, unspecified (7) UTI (urinary tract infection) due to urinary indwelling Chandra catheter Current Visit: Yes Status: Acute Qualifiers: Indwelling urinary catheter type: indwelling urethral catheter Encounter type: subsequent encounter Qualified Code(s): T83.511D - Infection and inflammatory reaction due to indwelling urethral catheter, subsequent encounter ; N39.0 - Urinary tract infection, site not specified - Subjective Interval history: Patient seen and examined. Patient seen and examined. She continues to have significant GERD and sometimes she feels her acid content in her throat. Had 2 watery bowel movements a day. Rest of the review of systems really unremarkable. In the last 24 hours patient has been afebrile and hemodynamically stable. WBC is slightly improved to 21,000 from 24.3 thousand with normal differential no bands CT chest and CT abdomen and pelvis reviewed Infect Dis PN-Objective Data - Labs CBC & Chem 7: 04/04/18 05:46 04/04/18 05:46 Labs: Laboratory Results - last 24 hr 04/03/18 04/03/18 04/03/18 07:48 11:29 16:21 WBC RBC Hgb Hct MCV MCH MCHC RDW Plt Count MPV Immature Gran % Seg Neutrophils % Lymphocytes % Monocytes % Eosinophils % Basophils % Neutrophils # Lymphocytes # Monocytes # Eosinophils # Basophils # Nucleated RBCs/100 WBC Platelet Estimate Hypochromasia Poikilocytosis Anisocytosis Microcytosis Macrocytosis Tear Drop Cells Sodium Potassium Chloride Carbon Dioxide BUN Creatinine Est GFR ( Amer) Est GFR (Non-Af Amer) BUN/Creatinine Ratio Glucose POC Glucose 164 H 182 H 160 H Calculated Osmolality Calcium Magnesium Amylase Lipase TSH 04/03/18 04/04/18 04/04/18 23:25 05:46 05:46 WBC 21.0 H RBC 4.40 Hgb 9.7 L Hct 33.8 L MCV 76.8 L MCH 22.0 L MCHC 28.7 L RDW 20.6 H Plt Count 407 H MPV 12.0 Immature Gran % 0.7 Seg Neutrophils % 77.9 Lymphocytes % 16.0 Monocytes % 3.8 Eosinophils % 1.5 Basophils % 0.1 Neutrophils # 16.4 H Lymphocytes # 3.4 Monocytes # 0.8 Eosinophils # 0.3 Basophils # 0.0 Nucleated RBCs/100 WBC 0.1 H Platelet Estimate Increased H Hypochromasia Present A Poikilocytosis 1+ A Anisocytosis 2+ A Microcytosis Present A Macrocytosis Present A Tear Drop Cells 1+ A Sodium Potassium Chloride Carbon Dioxide BUN Creatinine Est GFR ( Amer) Est GFR (Non-Af Amer) BUN/Creatinine Ratio Glucose POC Glucose 140 H Calculated Osmolality Calcium Magnesium Amylase 22 L Lipase 22 TSH 0.469 04/04/18 04/04/18 04/04/18 05:46 06:30 11:18 WBC RBC Hgb Hct MCV MCH MCHC RDW Plt Count MPV Immature Gran % Seg Neutrophils % Lymphocytes % Monocytes % Eosinophils % Basophils % Neutrophils # Lymphocytes # Monocytes # Eosinophils # Basophils # Nucleated RBCs/100 WBC Platelet Estimate Hypochromasia Poikilocytosis Anisocytosis Microcytosis Macrocytosis Tear Drop Cells Sodium 139 Potassium 3.5 Chloride 99 Carbon Dioxide 33 H BUN 9 Creatinine 0.46 L Est GFR ( Amer) > 60 Est GFR (Non-Af Amer) > 60 BUN/Creatinine Ratio 20 Glucose 132 H POC Glucose 117 H 156 H Calculated Osmolality 289 Calcium 8.2 L Magnesium 1.5 L Amylase Lipase TSH Cultures: Cultures 03/27/18 04:15 Legionella Antigen - Final Urine,[place] Streptococcus pneumoniae Antigen (M - Final Serology 03/29/18 03/27/18 03/26/18 Range/Units 08:40 04:15 20:10 Urine Color Yellow (Yellow) Urine Clarity Clear (Clear) Urine pH 5.5 (5.0-8.0) pH Units Ur Specific [place] 1.023 (1.010-1.025) Urine Protein Negative (Neg-Trace) mg/dL Urine Glucose (UA) Normal (Normal) mg/dL Urine Ketones Negative (Negative) mg/dL Urine Blood Trace H (Negative) Urine Nitrite Negative (Negative) Urine Bilirubin Negative (Negative) Urine Urobilinogen Normal (Normal) mg/dL Ur Leukocyte Esterase Small H (Negative) Urine Microscopic RBC 3-5 H (0-3) per hpf Urine Microscopic WBC 5-15 H (0-3) per hpf Ur Squamous Epith Cells Many H (None-Few) per lpf Urine Bacteria None Seen (None-Few) per hpf Hyaline Casts Few (None-Few) per lpf Urine Yeast Test Not Performed Ur Culture Indicated? NO. A (NO) Stl C. cayetanensis PCR (Not detect) Stool Rotavirus A PCR (Not detect) Stl Adenov F 40/41 PCR (Not detect) Stool Astrovirus (PCR) (Not detect) Stool Campylobacter PCR (Not detect) Stl C. diff Tox B Gene Positive A (Negative) Stl C. diff Tox A/B PCR (Not detect) Stool Cryptosporidium PCR (Not detect) Stl Sh Tox Pr E STEC PCR (Not detect) Stool E coli O157 PCR (Not detect) Stl Enterotoxigenic E PCR (Not detect) Stool EPEC (PCR) (Not detect) Stool EAEC (PCR) (Not detect) Stl E. histolytica PCR (Not detect) Stool Giardia Lamblia PCR (Not detect) Stool Salmonella PCR (Not detect) Stool Sapovirus (PCR) (Not detect) Stl P. shigelloides PCR (Not detect) Stl Shigella/EIEC PCR (Not detect) St Y.enterocolitica PCR (Not detect) Stool Vibrio (PCR) (Not detect) Stl Vibrio cholerae PCR (Not detect) Stl Norovirus GI/GII PCR (Not detect) Stl GI Panel (PCR) Com Mycoplasma pneumon IgG 0.30 H (<=0.09) U/L Mycoplasma pneumon IgM 0.06 (<=0.76) U/L 03/26/18 Range/Units 20:10 Urine Color (Yellow) Urine Clarity (Clear) Urine pH (5.0-8.0) pH Units Ur Specific [place] (1.010-1.025) Urine Protein (Neg-Trace) mg/dL Urine Glucose (UA) (Normal) mg/dL Urine Ketones (Negative) mg/dL Urine Blood (Negative) Urine Nitrite (Negative) Urine Bilirubin (Negative) Urine Urobilinogen (Normal) mg/dL Ur Leukocyte Esterase (Negative) Urine Microscopic RBC (0-3) per hpf Urine Microscopic WBC (0-3) per hpf Ur Squamous Epith Cells (None-Few) per lpf Urine Bacteria (None-Few) per hpf Hyaline Casts (None-Few) per lpf Urine Yeast Ur Culture Indicated? (NO) Stl C. cayetanensis PCR Not detected (Not detect) Stool Rotavirus A PCR Not detected (Not detect) Stl Adenov F 40/41 PCR Not detected (Not detect) Stool Astrovirus (PCR) Not detected (Not detect) Stool Campylobacter PCR Not detected (Not detect) Stl C. diff Tox B Gene (Negative) Stl C. diff Tox A/B PCR See reflex test A (Not detect) Stool Cryptosporidium PCR Not detected (Not detect) Stl Sh Tox Pr E STEC PCR Not detected (Not detect) Stool E coli O157 PCR Not detected (Not detect) Stl Enterotoxigenic E PCR Not detected (Not detect) Stool EPEC (PCR) Not detected (Not detect) Stool EAEC (PCR) Not detected (Not detect) Stl E. histolytica PCR Not detected (Not detect) Stool Giardia Lamblia PCR Not detected (Not detect) Stool Salmonella PCR Not detected (Not detect) Stool Sapovirus (PCR) Not detected (Not detect) Stl P. shigelloides PCR Not detected (Not detect) Stl Shigella/EIEC PCR Not detected (Not detect) St Y.enterocolitica PCR Not detected (Not detect) Stool Vibrio (PCR) Not detected (Not detect) Stl Vibrio cholerae PCR Not detected (Not detect) Stl Norovirus GI/GII PCR Not detected (Not detect) Stl GI Panel (PCR) Com See below Mycoplasma pneumon IgG (<=0.09) U/L Mycoplasma pneumon IgM (<=0.76) U/L Exam - Constitutional Vitals: Temp Pulse Resp BP Pulse Ox 98.2 F 67 18 148/70 93 04/04/18 14:32 04/04/18 14:32 04/04/18 15:37 04/04/18 14:32 04/04/18 15:37 Consult Discharge Plan - Plan Referrals: Kathy Acosta DO [Resident] -
[2018-04-04] MEDS: traZODone 50 MG TABLET PO SCH (22:17)
[2018-04-05] MEDS: Piperacillin/Tazobactam 3.375 GM in 0.9 % Sodium Chloride Mini Bag 100 ML IVPB SCH ×3 (01:20→15:49)
[2018-04-05] MEDS: Ipratropium/Albuterol Neb 3 ML IH SCH ×5 (04:22→19:46)
[2018-04-05 05:37] LABS: Basophils % 0.3 %; Immature Granulocytes % 0.7 % (0-4)
[2018-04-05 05:39] LABS: Basophils # 0.1 K/mcL (0.0-0.2); Eosinophils # 0.3 K/mcL (0.0-0.6); Eosinophils % 1.8 %; Hematocrit 35.7 % (35.3-44.9); Hemoglobin 10.1 g/dL (11.5-15.4); Lymphocytes # 3.2 K/mcL (0.6-4.6); Lymphocytes % 16.9 %; Mean Corpuscular HGB Conc 28.3 g/dL (31.6-35.5); Mean Corpuscular Hemoglobin 22.1 pg (28.0-33.3); Mean Corpuscular Volume 78.1 fL (83.0-100.0); Mean Platelet Volume 12.4 fL (9.4-12.4); Monocytes # 0.7 K/mcL (0.0-1.3); Monocytes % 3.9 %; Neutrophils # 14.4 K/mcL (1.6-8.9); Nucleated Red Blood Cells 0.1 /100 WBC (0); Platelet Count 444 K/mcL (140-400); Red Blood Count 4.57 M/mcL (3.82-4.97); Red Cell Distribution Width 20.8 % (11.5-14.5); Segmented Neutrophils % 76.4 %
[2018-04-05 05:47] LABS: BUN/Creatinine Ratio 17 (6-26); Blood Urea Nitrogen 8 mg/dL (8-23); Calcium 8.4 mg/dL (8.6-10.3); Carbon Dioxide 34 mEq/L (23-29); Chloride 97 mEq/L (98-107); Glucose 111 mg/dL (70-105); Osmolality,Calculated 285 (280-300); Potassium 3.8 mEq/L (3.5-5.1); Sodium 138 mEq/L (136-145); eGFR For Non-African Americans > 60 (> 60)
[2018-04-05] MEDS: *HR* Heparin 5,000 UNIT/ML VIAL SQ SCH ×3 (06:03→21:01)
[2018-04-05 06:08] LABS: Platelet Estimate Normal (Normal)
[2018-04-05 06:09] LABS: Anisocytosis 2+ (Not Present); Hypochromasia Present (Not Present); Large Platelets Present (Not Present); Microcytosis Present (Not Present)
[2018-04-05] MEDS: Beclomethasone 80mcg MDI IH SCH ×2 (07:47→19:46)
[2018-04-05] MEDS: Insulin LISPRO 300 UNITS/3 ML VIAL SQ SCH ×4 (08:02→21:09)
[2018-04-05] MEDS: Lisinopril 20 MG TABLET PO SCH (09:20)
[2018-04-05] MEDS: Lactobacillus 1 EACH CAP.SPRINK PO SCH ×2 (09:20→21:01)
[2018-04-05] MEDS: Metoprolol 100 MG TABLET PO SCH ×2 (09:20→21:01)
[2018-04-05] MEDS: Gabapentin 100 MG CAPSULE PO SCH ×3 (09:21→21:01)
[2018-04-05] MEDS: Magnesium Oxide 400 MG TABLET PO SCH (09:21)
[2018-04-05] MEDS: amLODIPine 5 MG TABLET PO SCH (09:21)
[2018-04-05] MEDS: OXYCODONE Oral CONC 10 MG/0.5 ML ORAL.SYG SL PRN ×2 (09:21→21:02)
[2018-04-05] MEDS: Aspirin 81 MG TAB.CHEW PO SCH (09:22)
[2018-04-05] MEDS: Vancomycin Oral Soln 125 MG/2.5 ML UDC PO SCH ×4 (09:23→20:42)
[2018-04-05] MEDS: Furosemide 20 MG/2 ML VIAL IVP SCH (09:23)
--- NOTE | 2018-04-05 10:07 | Pulmonology Consult Note ---
<Trish aLncaster S - Last Filed: 04/05/18 15:03> Date of Encounter: 04/05/18 Medications and Allergies Aspirin [Lo-Dose Aspirin EC] 81 mg PO DAILY 01/28/17 [History] Cholecalciferol (Vitamin D3) [Vitamin D3] 1,000 unit PO DAILY 01/28/17 [History] Clopidogrel [Plavix] 75 mg PO DAILY 01/28/17 [History] Furosemide [Lasix] 40 mg PO DAILY 01/28/17 [History] Guaifenesin [Mucinex] 600 mg PO BID PRN 01/28/17 [History] Insulin ASPART [Novolog Flexpen] 10 unit SQ TIDAC MDD plus sliding sale [History] Insulin Glargine,Hum.rec.anlog [Lantus Solostar] 25 unit SQ HS 01/28/17 [History ] Ipratropium/Albuterol Neb [Duoneb] 3 ml IH Q6HR PRN 01/28/17 [History] Lisinopril [Zestril] 20 mg PO DAILY 01/28/17 [History] Metformin HCl [Glucophage] 1,000 mg PO BID 01/28/17 [History] Metoprolol [Lopressor] 100 mg PO BID 01/28/17 [History] Ropinirole HCl [Requip] 0.25 - 0.5 mg PO HS 01/28/17 [History] Sertraline [Zoloft] 50 mg PO DAILY 01/28/17 [History] Tiotropium [Spiriva] 1 cap IH DAILY 01/28/17 [History] Acetaminophen [Tylenol] 500 mg PO Q4H PRN 03/26/18 [History] Amitriptyline [Elavil] 25 mg PO HS 03/26/18 [History] Amlodipine Besylate 10 mg PO DAILY 03/26/18 [History] Atorvastatin [Lipitor] 40 mg PO HS 03/26/18 [History] Gabapentin [Neurontin] 300 mg PO BID 03/26/18 [History] Ibuprofen [Ibu] 600 mg PO Q6H PRN 03/26/18 [History] Multivitamin [One Daily Multivitamin] 1 tab PO DAILY 03/26/18 [History] Pantoprazole Sodium [Protonix] 40 mg PO DAILY 03/26/18 [History] SitaGLIPtin [Januvia] 100 mg PO DAILY 03/26/18 [History] Albuterol Neb [Proventil Neb] 2.5 mg IH Q4-6H PRN 03/27/18 [History] Beclomethasone Dip 40mcg REDIH [Qvar 40 mcg REDIHALER] 1 puff IH BID 03/27/18 [ History] Calcium Carb/Magnesium Hydrox [Antacid Extra Strngth Tab Chew] 1 tab PO DAILY [History] 3 Allergy/AdvReac Type Severity Reaction Status Date / Time Iodinated Contrast- Oral and Allergy Anaphylaxis Verified 03/26/18 14:33 IV Dye [Iodinated Contrast Media - Oral and] All Systems: The remainder of the systems were reviewed and are negative Physical Examination Vital Signs: Vital Signs, Last 4 Hours Temp Pulse Resp BP Pulse Ox 04/05/18 14:14 97.6 F 67 16 122/78 97 04/05/18 13:33 16 98 04/05/18 12:00 128/74 Results - Laboratory Findings CBC and BMP: 04/05/18 04:25 04/05/18 04:25 ABG ABG pH 7.42 pH Units (7.32-7.45) 03/28/18 20:10 ABG pCO2 43 mmHg (35-45) 03/28/18 20:10 ABG pO2 55 mmHg (85-104) L 03/28/18 20:10 ABG O2 Saturation 88 % (95-98) L 03/28/18 20:10 PT/INR, D-dimer PT 17.8 Seconds (9.4-12.1) H 04/02/18 06:17 Abnormal lab findings: Abnormal lab results WBC 18.8 K/mcL (4.3-11.1) H 04/05/18 04:25 Hgb 10.1 g/dL (11.5-15.4) L 04/05/18 04:25 MCV 78.1 fL (83.0-100.0) L 04/05/18 04:25 MCH 22.1 pg (28.0-33.3) L 04/05/18 04:25 MCHC 28.3 g/dL (31.6-35.5) L 04/05/18 04:25 RDW 20.8 % (11.5-14.5) H 04/05/18 04:25 Plt Count 444 K/mcL (140-400) H 04/05/18 04:25 Neutrophils # 14.4 K/mcL (1.6-8.9) H 04/05/18 04:25 Nucleated RBCs/100 WBC 0.1 /100 WBC (0) H 04/05/18 04:25 Reactive Lymphocytes Present (Not Present) A 03/31/18 05:48 Large Platelets Present (Not Present) A 04/05/18 04:25 Polychromasia 1+ (Not Present) A 03/28/18 05:01 Hypochromasia Present (Not Present) A 04/05/18 04:25 Poikilocytosis 1+ (Not Present) A 04/04/18 05:46 Anisocytosis 2+ (Not Present) A 04/05/18 04:25 Microcytosis Present (Not Present) A 04/05/18 04:25 Macrocytosis Present (Not Present) A 04/04/18 05:46 Target Cells 1+ (Not Present) A 04/03/18 03:47 Tear Drop Cells 1+ (Not Present) A 04/04/18 05:46 PT 17.8 Seconds (9.4-12.1) H 04/02/18 06:17 ABG pO2 55 mmHg (85-104) L 03/28/18 20:10 ABG HCO3 28 mEq/L (21-27) H 03/28/18 20:10 ABG Total CO2 30 mEq/L (20-26) H 03/28/18 20:10 ABG O2 Saturation 88 % (95-98) L 03/28/18 20:10 Chloride 97 mEq/L (98-107) L 04/05/18 04:25 Carbon Dioxide 34 mEq/L (23-29) H 04/05/18 04:25 Creatinine 0.46 mg/dL (0.60-1.20) L 04/05/18 04:25 Glucose 111 mg/dL (70-105) H 04/05/18 04:25 POC Glucose 156 mg/dL (70-99) H 04/04/18 11:18 Hemoglobin A1c 6.8 % (-5.6) H 03/26/18 06:14 Calcium 8.4 mg/dL (8.6-10.3) L 04/05/18 04:25 Magnesium 1.5 mg/dL (1.6-2.6) L 04/04/18 05:46 Iron < 10 mcg/dL (50-170) L 03/29/18 05:53 Transferrin 158 mg/dL (203-362) L 03/29/18 05:53 AST 44 Units/L (13-39) H 04/01/18 06:12 ALT 58 Units/L (7-52) H 04/01/18 06:12 Alkaline Phosphatase 233 Units/L (34-104) H 04/01/18 06:12 Troponin I 0.19 ng/mL (< 0.04) H* 03/25/18 13:33 B-Natriuretic Peptide 185 pg/mL (Less than 100) H 03/25/18 00:59 Serum Total Protein 5.7 g/dL (6.4-8.9) L 04/01/18 06:12 Albumin 2.4 g/dL (3.5-5.7) L 04/01/18 06:12 Albumin/Globulin Ratio 0.7 (1.1-2.2) L 04/01/18 06:12 Amylase 22 Units/L (29-103) L 04/04/18 05:46 Urine Blood Trace (Negative) H 03/27/18 04:15 Ur Leukocyte Esterase Small (Negative) H 03/27/18 04:15 Urine Microscopic RBC 3-5 per hpf (0-3) H 03/27/18 04:15 Urine Microscopic WBC 5-15 per hpf (0-3) H 03/27/18 04:15 Ur Squamous Epith Cells Many per lpf (None-Few) H 03/27/18 04:15 Ur Culture Indicated? NO. (NO) A 03/27/18 04:15 Stl C. diff Tox B Gene Positive (Negative) A 03/26/18 20:10 Stl C. diff Tox A/B PCR See reflex test (Not detect) A 03/26/18 20:10 Mycoplasma pneumon IgG 0.30 U/L (<=0.09) H 03/29/18 08:40 - Clinical Findings Intake & Output: Intake & Output 04/04/18 04/05/18 04/05/18 23:59 07:59 15:59 Intake Total 814 / 814 350 / 350 Output Total 900 / 900 Balance -86 / -86 350 / 350 Weight 62.6 kg Consult Discharge Plan - Plan Referrals: Kathy Acosta DO [Resident] - - Attending Attestation I saw and evaluated this patient and my medical decision-making was reviewed with the Resident Physician. I agree with the documented findings, disposition and treatment plan as described except to the extent set forth below. We independently had [id number] contact with the patient Patient seen and examined at bedside Labs, radiology, chart personally reviewed. Management was reviewed during multidisciplinary critical care rounds. Patient with background of COPD now presenting with acute on chronic respiratory failure with background C. difficile colitis pulmonary was consult did for the left lower lobe pneumonia I reviewed the CT scan most of the major lobar airways are open and left lower lobe consolidation with some endobronchial secretions and patient has bilateral extensive bronchiolitis most likely due to infectious cause with a background of pneumonia. I agree with changing the antibiotics to broad-spectrum with MRSA coverage. Will do incentive spirometry, flutter valve, induce sputum with hypertonic saline get a good adequate sample and send for sputum culture and sensitivity. We will try this conservative management was notable of bronchoscopy at this point if patient does not improve will consider bronchoscopy with BAL but not at this point. I told the patient about the plan to continue with conservative management and with bronchopulmonary hygiene patient agreed for the conservative management for now. We will sign off please call us back again with the patient does not improve for possible bronchoscopy agree with the rest of the management according to primary team and conveyed myself about the plan to the primary team especially starting back on steroids. <Aftab Catherine - Last Filed: 04/05/18 18:03> Date of Encounter: 04/05/18 Time of Encounter: 10:00 Assessment and Plan (1) Acute and chronic respiratory failure with hypoxia Current Visit: Yes Status: Acute - Likely multifactorial secondary to her history of CHF/COPD. patient is on Spiriva, albuterol as home meds . - Radiographic studies showed scattered bronchial wall thickening focal patchy nodularity in the superior left upper lobe , left lower lobe with concerns for multifocal pneumonia,. Chest x-ray from 4 days ago also showed evidence of pulmonary vascular congestion with concerns for pulmonary edema - On physical exam exam she endorses no worsening shortness of breath, palpitations or chest pain. -Patient is currently on 4 L of nasal cannula satting at 92%. Continues to be on 3.375 g Zosyn. - Cultures pending . Strep pneumonias and antigens negative. - Currently on broad-spectrum antibiotics vancomycin and Zosyn. - Started Prednisone 40mg . Recommended 12 days of taper. Flutter valve and inceptive spirometry to improve lung function -Patient will benefit from induced sputum with hypertonic saline to get a good adequate sample and sent for culture and sensitivity -Patient recommended getting a chest CT in 6 weeks and follow up with pulmonology. History of Present Illness Consult date: 04/05/18 History of present illness: Mr. Lauren, is a 61-year-old male with a past medical history of CAD (5 XCABG ), COPD, cholelithiasis diabetes CVA, was initially admitted for chest pain on March 25. Pulmonology was consulted because of acute on chronic hypoxic respiratory failure potentiated by multifocal pneumonia/CHF/COPD exacerbation. Past Med Surg Social Fam HX - Past Medical History Medical history: cancer, CHF, COPD, coronary artery disease, CVA, DVT, diabetes , hyperlipidemia, hypertension, myocardial infarction Additional medical history: GALLSTONES, HERNIA Psychiatric history: anxiety, depression - Past Surgical History Surgical History: breast surgery, cancer surgery, carotid endarterectomy, coronary bypass (CABG), LE vascular intervention Additional surgical history: cervical cancer, breast cancer - Social History Smoking Status: Current every day smoker Packs per day: 1 Smokeless Tobacco Status: No Alcohol use: none Drug use: none - Family History Mother Living Status: Hx Family Cancer: Yes (carcinoma kidney(s)) Hx Family Endocrine Disorder: Yes (DM) All Systems: The remainder of the systems were reviewed and are negative Results - Laboratory Findings CBC and BMP: 04/05/18 04:25 04/05/18 04:25 ABG ABG pH 7.42 pH Units (7.32-7.45) 03/28/18 20:10 ABG pCO2 43 mmHg (35-45) 03/28/18 20:10 ABG pO2 55 mmHg (85-104) L 03/28/18 20:10 ABG O2 Saturation 88 % (95-98) L 03/28/18 20:10 PT/INR, D-dimer PT 17.8 Seconds (9.4-12.1) H 04/02/18 06:17 Abnormal lab findings: Abnormal lab results WBC 18.8 K/mcL (4.3-11.1) H 04/05/18 04:25 Hgb 10.1 g/dL (11.5-15.4) L 04/05/18 04:25 MCV 78.1 fL (83.0-100.0) L 04/05/18 04:25 MCH 22.1 pg (28.0-33.3) L 04/05/18 04:25 MCHC 28.3 g/dL (31.6-35.5) L 04/05/18 04:25 RDW 20.8 % (11.5-14.5) H 04/05/18 04:25 Plt Count 444 K/mcL (140-400) H 04/05/18 04:25 Neutrophils # 14.4 K/mcL (1.6-8.9) H 04/05/18 04:25 Nucleated RBCs/100 WBC 0.1 /100 WBC (0) H 04/05/18 04:25 Reactive Lymphocytes Present (Not Present) A 03/31/18 05:48 Large Platelets Present (Not Present) A 04/05/18 04:25 Polychromasia 1+ (Not Present) A 03/28/18 05:01 Hypochromasia Present (Not Present) A 04/05/18 04:25 Poikilocytosis 1+ (Not Present) A 04/04/18 05:46 Anisocytosis 2+ (Not Present) A 04/05/18 04:25 Microcytosis Present (Not Present) A 04/05/18 04:25 Macrocytosis Present (Not Present) A 04/04/18 05:46 Target Cells 1+ (Not Present) A 04/03/18 03:47 Tear Drop Cells 1+ (Not Present) A 04/04/18 05:46 PT 17.8 Seconds (9.4-12.1) H 04/02/18 06:17 ABG pO2 55 mmHg (85-104) L 03/28/18 20:10 ABG HCO3 28 mEq/L (21-27) H 03/28/18 20:10 ABG Total CO2 30 mEq/L (20-26) H 03/28/18 20:10 ABG O2 Saturation 88 % (95-98) L 03/28/18 20:10 Chloride 97 mEq/L (98-107) L 04/05/18 04:25 Carbon Dioxide 34 mEq/L (23-29) H 04/05/18 04:25 Creatinine 0.46 mg/dL (0.60-1.20) L 04/05/18 04:25 Glucose 111 mg/dL (70-105) H 04/05/18 04:25 POC Glucose 156 mg/dL (70-99) H 04/04/18 11:18 Hemoglobin A1c 6.8 % (-5.6) H 03/26/18 06:14 Calcium 8.4 mg/dL (8.6-10.3) L 04/05/18 04:25 Magnesium 1.5 mg/dL (1.6-2.6) L 04/04/18 05:46 Iron < 10 mcg/dL (50-170) L 03/29/18 05:53 Transferrin 158 mg/dL (203-362) L 03/29/18 05:53 AST 44 Units/L (13-39) H 04/01/18 06:12 ALT 58 Units/L (7-52) H 04/01/18 06:12 Alkaline Phosphatase 233 Units/L (34-104) H 04/01/18 06:12 Troponin I 0.19 ng/mL (< 0.04) H* 03/25/18 13:33 B-Natriuretic Peptide 185 pg/mL (Less than 100) H 03/25/18 00:59 Serum Total Protein 5.7 g/dL (6.4-8.9) L 04/01/18 06:12 Albumin 2.4 g/dL (3.5-5.7) L 04/01/18 06:12 Albumin/Globulin Ratio 0.7 (1.1-2.2) L 04/01/18 06:12 Amylase 22 Units/L (29-103) L 04/04/18 05:46 Urine Blood Trace (Negative) H 03/27/18 04:15 Ur Leukocyte Esterase Small (Negative) H 03/27/18 04:15 Urine Microscopic RBC 3-5 per hpf (0-3) H 03/27/18 04:15 Urine Microscopic WBC 5-15 per hpf (0-3) H 03/27/18 04:15 Ur Squamous Epith Cells Many per lpf (None-Few) H 03/27/18 04:15 Ur Culture Indicated? NO. (NO) A 03/27/18 04:15 Stl C. diff Tox B Gene Positive (Negative) A 03/26/18 20:10 Stl C. diff Tox A/B PCR See reflex test (Not detect) A 03/26/18 20:10 Mycoplasma pneumon IgG 0.30 U/L (<=0.09) H 03/29/18 08:40 - Clinical Findings Intake & Output: Intake & Output 04/04/18 04/05/18 04/05/18 23:59 07:59 15:59 Intake Total 814 / 814 350 / 350 Output Total 900 / 900 Balance -86 / -86 350 / 350 Weight 62.6 kg
[2018-04-05 11:12] LABS: Adenovirus Not Detected (Not Detect); Bordetella Pertussis Not Detected (Not Detect); Chlamydophila pneumoniae Not Detected (Not Detect); Coronavirus 229E Not Detected (Not Detect); Coronavirus HKU1 Not Detected (Not Detect); Coronavirus NL63 Not Detected (Not Detect); Coronavirus OC43 Not Detected (Not Detect); Human Metapneumovirus Not Detected (Not Detect); Human Rhinovirus/Enterovirus Not Detected (Not Detect); Influenza A Subtype 2009 H1 Not Detected (Not Detect); Influenza A Untypeable Not Detected (Not Detect); Influenza B Not Detected (Not Detect); Parainfluenza Virus 1 Not Detected (Not Detect); Parainfluenza Virus 2 Not Detected (Not Detect); Parainfluenza Virus 3 Not Detected (Not Detect); Parainfluenza Virus 4 Not Detected (Not Detect); Respiratory Syncytial Virus Not Detected (Not Detect)
[2018-04-05 11:13] LABS: Mycoplasma pneumoniae Not Detected (Not Detect)
[2018-04-05] MEDS: Tiotropium 18 MCG inhalation IH SCH (11:18)
--- NOTE | 2018-04-05 11:42 | Gastroenterology Consult Note ---
<Saba Blanchard - Last Filed: 04/05/18 14:28> Date of Encounter: 04/05/18 Time of Encounter: 11:40 - Assessment and plan (1) C. difficile colitis Current Visit: Yes Status: Acute Assessment and plan: She tested positive for C. Diff. It is considered severe. This is likely secondary to recent antibiotic use. She has never had C.diff before. patient reports significant improvement of abdominal pain. Bowel movements have decreased from 12 a day to 3 a day and have become more formed. -Vancomycin day 11 for which she has received both oral and IV -infectious disease is following patient (2) Abdominal pain Current Visit: Yes Status: Acute Assessment and plan: Diffuse abdominal pain likely secondary to C diff. However differential also includes primary biliary cirrhosis due to mildly elevated aminotransferase. Patient reported abdominal pain has significantly improved compared to admission. -WBC 18.8 -AST 44 ALT 58 -alkaline phosphatase 233 -lipase and amylase WNL -abdominal CT demonstrated multifocal pneumonia greatest in left lower lobe with left-sided effusion. Esophagus is fluid filled to above the level of the Ai likely reflex. Decreased small bowel distention compare to prior. Mild small bowel wall thickening and left upper quadrant that may be enteritis. Cholelithiasis. Plan: -will order and anti-nuclear antibody (EKTA) and anti-mitochondrial antibody (AMA ) to evaluate for primary biliary cirrhosis -start carafate TID -continue omeprazole, and probiotics -C.diff treatment as above Qualifiers: Abdominal location: generalized Qualified Code(s): R10.84 - Generalized abdominal pain (3) Sepsis Current Visit: No Status: Resolved Assessment and plan: She is currently being treated for sepsis secondary to pneumonia and C diff. -Management per primary team Qualifiers: Sepsis type: sepsis due to unspecified organism Qualified Code(s): A41.9 - Sepsis, unspecified organism (4) Anemia Current Visit: Yes Status: Acute Assessment and plan: Microcytic anemia. Likely iron deficient anemia Hemoglobin 10.1 hematocrit 35.7 MCV 78.1 iron <10 transferrin 158 ferritin 50 -patient likely needs iron supplementation Qualifiers: Anemia type: unspecified type Qualified Code(s): D64.9 - Anemia, unspecified (5) Pneumonia Current Visit: Yes Status: Acute Assessment and plan: Current treatment for multifocal pneumonia gratis in left lower lobe with pleural effusion. -Management for primary team Qualifiers: Pneumonia type: due to unspecified organism Laterality: bilateral Lung location: lower lobe of lung Qualified Code(s): J18.1 - Lobar pneumonia, unspecified organism - Time Spent With Patient Total time spent is greater than 50% in coordination of care (as documented) at patient's floor/unit and/or counseling patient: GI History of Present Illness - Data of Consult Patient: new to practice Consult date: 04/05/18 Requesting Physician: Evette Melendez MD - Consult Narrative Reason for consult: C.diff and abdominal pain History of present illness: Ms. Lauren is a 63 year old female with past medical history of CHF, CAD, COPD , CVA, DVT, CABG who presented as being treated for sepsis secondary to pneumonia and C diff. She has been followed by infectious disease and pulmonology. Gastroenterology was consulted for further evaluation for C diff and abdominal pain. Upon my examination of the patient she reported that her abdominal pain has improved from admission and her bowel movements have decreased in frequency from 12 a day to 3 a day. They have also become more formed. She reported that she had been on antibiotics prior to admission and prior to being found with C diff. She has never had C.diff before. She denied alcohol, drug use. She is a current smoker. She has never had an EGD or colonoscopy. She denies fever, chills, chest pain, hematemesis, melena, hematechezia. She admits to improving abdominal pain, nausea, vomiting. Past Med Surg Social Fam HX - Past Medical History Attestation: Yes The following information was validated with the patient. Source: patient Medical history: cancer, CHF, COPD, coronary artery disease, CVA, DVT, diabetes , hyperlipidemia, hypertension, myocardial infarction Additional medical history: GALLSTONES, HERNIA Psychiatric history: anxiety, depression - Past Surgical History Surgical History: breast surgery, cancer surgery, carotid endarterectomy, coronary bypass (CABG), LE vascular intervention Additional surgical history: cervical cancer, breast cancer - Social History Smoking Status: Current every day smoker Packs per day: 1 Smokeless Tobacco Status: No Alcohol use: none Drug use: none - Family History Mother Living Status: Hx Family Cancer: Yes (carcinoma kidney(s)) Hx Family Endocrine Disorder: Yes (DM) - Gastrointestinal Gastrointestinal: Present: abdominal pain, diarrhea, heartburn, nausea, vomiting. Absent: hematemesis, hematochezia, melena - Constitutional Constitutional: no fever(s) - Cardiovascular Cardiovascular ROS: Absent: chest pain - Respiratory Respiratory IM: Present: cough, dyspnea, wheezing - Neurological ROS Neurological GI: Absent: dizziness - Hematologic/Lymphatic Hematologic/Lymphatic pediatric: Absent: easy bleeding - Musculoskeletal Musculoskeletal ROS GI: Absent: back pain - Integumentary Integumentary GI: Absent: jaundice, pruritis - Psychiatric ROS Psychiatric GI: Present: depression - Endocrine Endocrine IM: Present: fatigue - Constitutional Vitals: Temp Pulse Resp BP Pulse Ox 97.8 F 75 15 150/63 92 04/05/18 05:13 04/05/18 05:13 04/05/18 05:13 04/05/18 05:13 04/05/18 05:13 Exam: Gen.: Vitals noted. No acute distress. AAOx3 HEENT: oropharynx clear, Normocephalic, atraumatic Cardiac: RRR, +S1/S2 Pulmonary: bilaterally wheezes and rhonchi, equal chest expansion Abdomen: soft, diffuse tender, Bowel sounds noted, no guarding MSK: ROM intact, no joint swelling noted Extremities: no BLE edema, nontender calf, no cyanosis or clubbing Neuro: A&Ox3, moves all extremities, no focal deficits Psych: Appropriate mood and behavior Results - Labs CBC & Chem 7: 04/05/18 04:25 04/05/18 04:25 Labs: Last Result Calcium 8.4 mg/dL (8.6-10.3) L 04/05/18 04:25 Iron < 10 mcg/dL (50-170) L 03/29/18 05:53 % Saturation TNP 03/29/18 05:53 Transferrin 158 mg/dL (203-362) L 03/29/18 05:53 Ferritin 50 ng/mL (10-120) 03/29/18 05:53 Troponin I 0.19 ng/mL (< 0.04) H* 03/25/18 13:33 Entire Visit Hgb 10.1 g/dL (11.5-15.4) L 04/05/18 04:25 Hct 35.7 % (35.3-44.9) 04/05/18 04:25 PT 17.8 Seconds (9.4-12.1) H 04/02/18 06:17 Ferritin 50 ng/mL (10-120) 03/29/18 05:53 Total Bilirubin 0.3 mg/dL (0.3-1.0) 04/01/18 06:12 AST 44 Units/L (13-39) H 04/01/18 06:12 ALT 58 Units/L (7-52) H 04/01/18 06:12 Amylase 22 Units/L (29-103) L 04/04/18 05:46 Lipase 22 Units/L (11-82) 04/04/18 05:46 - ABG ABG results: ABG ABG pH 7.42 pH Units (7.32-7.45) 03/28/18 20:10 ABG pCO2 43 mmHg (35-45) 03/28/18 20:10 ABG pO2 55 mmHg (85-104) L 03/28/18 20:10 ABG O2 Saturation 88 % (95-98) L 03/28/18 20:10 PT/INR, D-dimer PT 17.8 Seconds (9.4-12.1) H 04/02/18 06:17 Consult Discharge Plan - Plan Referrals: Kathy Acosta DO [Resident] - <Madelyn Lee - Last Filed: 04/05/18 16:53> Date of Encounter: 04/05/18 - Time Spent With Patient Total time spent is greater than 50% in coordination of care (as documented) at patient's floor/unit and/or counseling patient: GI History of Present Illness - Data of Consult Requesting Physician: Evette Melendez MD - Consult Narrative History of present illness: Ms. Lauren is a 63 year old female - Constitutional Vitals: Temp Pulse Resp BP Pulse Ox 97.6 F 67 16 122/78 95 04/05/18 14:14 04/05/18 14:14 04/05/18 16:35 04/05/18 14:14 04/05/18 16:35 Results - Labs CBC & Chem 7: 04/05/18 04:25 04/05/18 04:25 Labs: Last Result Calcium 8.4 mg/dL (8.6-10.3) L 04/05/18 04:25 Iron < 10 mcg/dL (50-170) L 03/29/18 05:53 % Saturation TNP 03/29/18 05:53 Transferrin 158 mg/dL (203-362) L 03/29/18 05:53 Ferritin 50 ng/mL (10-120) 03/29/18 05:53 Troponin I 0.19 ng/mL (< 0.04) H* 03/25/18 13:33 Entire Visit Hgb 10.1 g/dL (11.5-15.4) L 04/05/18 04:25 Hct 35.7 % (35.3-44.9) 04/05/18 04:25 PT 17.8 Seconds (9.4-12.1) H 04/02/18 06:17 Ferritin 50 ng/mL (10-120) 03/29/18 05:53 Total Bilirubin 0.3 mg/dL (0.3-1.0) 04/01/18 06:12 AST 44 Units/L (13-39) H 04/01/18 06:12 ALT 58 Units/L (7-52) H 04/01/18 06:12 Amylase 22 Units/L (29-103) L 04/04/18 05:46 Lipase 22 Units/L (11-82) 04/04/18 05:46 - ABG ABG results: ABG ABG pH 7.42 pH Units (7.32-7.45) 03/28/18 20:10 ABG pCO2 43 mmHg (35-45) 03/28/18 20:10 ABG pO2 55 mmHg (85-104) L 03/28/18 20:10 ABG O2 Saturation 88 % (95-98) L 03/28/18 20:10 PT/INR, D-dimer PT 17.8 Seconds (9.4-12.1) H 04/02/18 06:17 - Attending Attestation I examined this patient and my medical decision-making was reviewed with the Resident Physician. I agree with the documented findings, disposition and treatment plan as described except to the extent set forth below. Pt seen. Complaing of mild abd pain. O/E: Mild diffuse tanderness. A: Pt with C- diff colitis, pneumonia and now mild abn LFTS and long standing anemia. Rec: Abn LFTS mots prob sepsis induced vs meds but r/o PBC. EKTA, AMA EGD/colon in 4-6 weeks as out pt once current c-diff resolved
[2018-04-05] MEDS ORDERED: 3% Sodium Chloride Inhalation 4 ML VIAL.NEB IH SCH (11:45)
[2018-04-05] MEDS: predniSONE 20 MG TABLET PO SCH (12:43)
--- NOTE | 2018-04-05 13:29 | Internal Med Progress Note ---
Hospitalist Progress Note - Encounter Date of Encounter: 04/05/18 Time of Encounter: 13:24 - Subjective Interval History: Patient was examined at bedside while eating breakfast. She complains of left arm pain, similar to what she was having yesterday. Says that it feels like she pulled a muscle. She stated the pain involves her shoulders, elbow and her hand and feels the entire arm is painful. The is described as achy and at times sharp but movement does not worsen the pain. Additionally, she complained of ongoing right lower leg pain. She endorsed the pain was similar to her left arm pain in terms of intensity and character. She noted that she has history or arthritis and did not elaborate if the pain was similar to her arthritic pain. She had 2 loose bowel movements and 1 soft bowel movement. She continues to have diffuse abdominal pain and does not associate it with her bowel movements. She stated her shortness of breath has improved but still has cough when using the spirometer. There were no acute events overnight. She also denied worsening shortness of breath, fever, chills, palpitations, nausea, chest pain or emesis - Exam Vitals: Temp Pulse Resp BP Pulse Ox 98.8 F 71 17 128/74 90 04/05/18 10:25 04/05/18 10:25 04/05/18 10:25 04/05/18 12:00 04/05/18 10:25 Exam: General - female sitting on side of bed. On nasal cannula. Not in acute distress Cardiovascular - RRR no m/r/g Lungs - Diffuse expiratory wheezing, worse on the left Psychiatry - Affect congruent with mood Abdomen - Normal bowel sounds, non-distended, no guarding, soft, abdomen mildly tender to palpation in epigastric and right upper quadrant Extremities - Right LE red, warm, tender to palpation, and slightly swollen. Left UE swollen and tender to palpation at IV site. Ulcer at dorsum of right foot. Seems chronic and not infected. Neurological Alert and oriented x 3, right upper and lower paralysis - Assessment and Plan (1) C. difficile colitis Current Visit: Yes Status: Acute Assessment and Plan: Patient was having 5-6 watery stools per day. She had a positive C diff toxin PCR. Continues to have diffuse abdominal pain although CT abdomen and pelvis did not suggest toxic megacolon. -GI consulted -Had 3 BM yesterday. 1 soft stool and 2 loose -WBC 18.8, but downtrending -Continue oral Vancomycin day 10 125mg -Continue with probiotics (2) Acute and chronic respiratory failure with hypoxia Current Visit: Yes Status: Acute Assessment and Plan: Likely 2/2 multifocal pneumonia vs CHF. She has history of COPD and now likely has COPD exacerbation as she is requiring more oxygen and has cough. -CT chest shows multifocal pneumonia -ECHO on 03/25/2018 showed EF 70% with mild dystolic dysfunction -Chest x ray shows pulmonary edema vs pneumonia -Currently on 4L O2. Baseline is 2L O2 at home -Continue duoneb prn and O2 support -Continue attempting to wean down to baseline O2 use -Lasix 20mg IV BID -Zosyn day 8. Continue -Pulmonology consulted: recommended oral 40 mg prednisone, QVAR, spiriva, scheduled duoneb (3) Pneumonia Current Visit: Yes Status: Acute Assessment and Plan: CT chest on 04/03 showed multifocal PNA, greatest in the LLL -Swallow eval negative for aspiration -Continue zosyn day 8 -IV vancomycin started yesterday. Continue day 2 (4) Abdominal pain Current Visit: Yes Status: Acute Assessment and Plan: Positive C diff toxin PCR. She is tolerating diet without emesis or worsening abdominal pain. -CT abdomen 03/26 showed mural thickness of the distal esophagus, pyloric antrum , and several loops of small bowel in the right lower quadrant/pelvis. It also showed gallstones, but did not suggest acute cholecystitis -Etiology for abdominal pain include C. diff colitis, esophagitis, GERD, peptic ulcer disease, biliary colic, enteritis -Patient denies hematemesis, hematochezia, melena. Her vitals and Hgb have been stable -Continue with oral vancomycin 125 mg -Continue zofran prn -Continue omeprazole 40 mg -GI consulted. Appreciate recommendations (5) Swelling of right lower extremity Current Visit: Yes Status: Acute Assessment and Plan: Right LE red, warm, tender to palpation, swollen compared to left LE -Patient chronically bed bound, but on heparin SQ for DVT prophylaxis -Venous doppler negative for DVT -Etiology includes cellulitis vs stasis dermatitis -Continue IV vancomycin day 2 -ID following, appreciate recs (6) Left upper extremity swelling Current Visit: Yes Status: Acute Assessment and Plan: Swelling resolved. Continues to complain of left arm pain and there is not one area that is more painful. Upon physical exam the entire arm was tender to palpation including her finger tips up to her shoulder. Doppler negative for DVT -Likely arthritic -Etiology includes irritation from IV site, arthritis, tendonitis -IV moved to opposite arm -Continue to monitor -PT/OT consulted (7) Cholelithiasis Current Visit: Yes Status: Acute Assessment and Plan: CT abdomen on 03/30 showed cholelithiasis without acute cholecystits -Surgery on board. No surgical intervention planned at this time -Patient tolerating solid diet without abdominal pain, nausea, or vomiting -Continue with supportive care (8) COPD (chronic obstructive pulmonary disease) Current Visit: Yes Status: Chronic Assessment and Plan: Suspected COPD exacerbation. History of COPD, uses 3 liters of oxygen at home and mucinex BID, spiriva and duonebs. Her oxygen demand increased soon after admission requiring 10 liters at one point. Today she is on 4 liters but has ongoing cough and is unable to expel out the sputum. -Continue with duoneb Q4h prn -Continue to wean O2 supplementation--currently on 4L O2 via nasal canula -Continue with Qvar and spiriva (9) CAD (coronary artery disease) Current Visit: Yes Status: Chronic Assessment and Plan: History of CABG x 5 in 2004 -Continue with ASA, statin, and plavix -Continue telemetry -Cardiology signed off. Recommend outpatient stress test and follow up (10) History of CVA (cerebrovascular accident) Current Visit: No Status: Chronic Assessment and Plan: History of CVA while on ASA -Continue with ASA and plavix (11) HTN (hypertension) Current Visit: Yes Status: Chronic Assessment and Plan: Stable on current medications -Continue current regimen (12) Chest pain Current Visit: Yes Status: Resolved Assessment and Plan: Presented for chest pain. Troponin max 0.23, decreased to 0.19. Cardiology was consulted and believed this to be due to demand ischemia/ NSTEMI II 2/2 UTI. EKG NSR -ECHO 03/25/2018 showed EF 70% with mild dyastolic dysfunction -Patient denied chest pain today -Continue with ASA, statin, and plavix -Continue telemetry -Cardiology signed off. Recommend outpatient stress test and follow up (13) Diabetes Current Visit: No Status: Chronic Assessment and Plan: Controlled while inpatient, last glucose 111 -Continue with SSI (14) Weight loss Current Visit: Yes Status: Acute Assessment and Plan: Patient endorsed subjective weight loss of 40 pounds in the past 6 months and endorsed she was not eating. Nutrition consulted. Recommend ensure twice a day. DVT Prophylaxis: Heparin SQ - Time Spent with Patient Total time spent is greater than 50% in coordination of care (as documented) at patient's floor/unit and/or counseling patient: Internal Medicine: Result - Labs CBC & Chem 7: 04/05/18 04:25 04/05/18 04:25 Labs: Short CBC 04/05/18 Range/Units 04:25 WBC 18.8 H (4.3-11.1) K/mcL Hgb 10.1 L (11.5-15.4) g/dL Hct 35.7 (35.3-44.9) % Plt Count 444 H (140-400) K/mcL Neutrophils # 14.4 H (1.6-8.9) K/mcL BMP 04/05/18 04:25 Sodium 138 Potassium 3.8 Chloride 97 L Carbon Dioxide 34 H BUN 8 Creatinine 0.46 L Glucose 111 H Calcium 8.4 L - ABG Interpretation ABG results: ABG ABG pH 7.42 pH Units (7.32-7.45) 03/28/18 20:10 ABG pCO2 43 mmHg (35-45) 03/28/18 20:10 ABG pO2 55 mmHg (85-104) L 03/28/18 20:10 ABG O2 Saturation 88 % (95-98) L 03/28/18 20:10 PT/INR, D-dimer PT 17.8 Seconds (9.4-12.1) H 04/02/18 06:17 Consult Discharge Plan - Plan Referrals: Kathy Acosta DO [Resident] - (3) Pneumonia Qualifiers: Pneumonia type: due to unspecified organism Laterality: bilateral Lung location: lower lobe of lung Qualified Code(s): J18.1 - Lobar pneumonia, unspecified organism (4) Abdominal pain Qualifiers: Abdominal location: generalized Qualified Code(s): R10.84 - Generalized abdominal pain (7) Cholelithiasis Qualifiers: Cholelithiasis location: gallbladder Cholecystitis presence: without cholecystitis Biliary obstruction: without biliary obstruction Qualified Code( s): K80.20 - Calculus of gallbladder without cholecystitis without obstruction (8) COPD (chronic obstructive pulmonary disease) Qualifiers: COPD type: COPD with acute exacerbation Qualified Code(s): J44.1 - Chronic obstructive pulmonary disease with (acute) exacerbation (9) CAD (coronary artery disease) Qualifiers: Coronary Disease-Associated Artery/Lesion type: [place] artery [place] vs. transplanted heart: [place] heart Associated angina: without angina Qualified Code(s): I25.10 - Atherosclerotic heart disease of [place] coronary artery without angina pectoris (11) HTN (hypertension) Qualifiers: Hypertension type: essential hypertension Qualified Code(s): I10 - Essential (primary) hypertension (12) Chest pain Qualifiers: Chest pain type: chest pain due to myocardial ischemia Ischemic chest pain type: unstable angina pectoris Qualified Code(s): I20.0 - Unstable angina (13) Diabetes Qualifiers: Diabetes mellitus type: type 2 Diabetes mellitus intermediate project manager insulin use: unspecified intermediate project manager insulin use status Diabetes mellitus complication status : without complication Qualified Code(s): E11.9 - Type 2 diabetes mellitus without complications
[2018-04-05] MEDS: 3% Sodium Chloride Inhalation 4 ML VIAL.NEB IH SCH ×2 (13:33→16:33)
[2018-04-05] MEDS: Sucralfate 1 GM TABLET PO SCH (15:48)
--- NOTE | 2018-04-05 16:16 | Infectious Disease Progress No ---
Date of Encounter: 04/05/18 Time of Encounter: 16:14 - Assessment and Plan (1) Sepsis Current Visit: No Status: Resolved secondary to C diff and multilobar pneumonia Qualifiers: Sepsis type: sepsis due to unspecified organism Qualified Code(s): A41.9 - Sepsis, unspecified organism (2) Pneumonia Current Visit: Yes Status: Acute causative organism unclear negative urine antigens CXR and 1/2 CT's were negative; one CT concerning for bibasilar pneumonia on ; CT chest on 04/03/2018 reveals multifocal pneumonia greatest in the left lower lobe scattered bronchial wall thickening is seen more focal patchy nodularity seen superiorly in the left upper lobe check RIP continue zosyn for now Add vancomycin Consider pulmonary evaluation no signs of aspiartion Qualifiers: Pneumonia type: due to unspecified organism Laterality: bilateral Lung location: lower lobe of lung Qualified Code(s): J18.1 - Lobar pneumonia, unspecified organism (3) C. difficile colitis Current Visit: Yes Status: Acute Severe currently on vancomycin orally dose at 125mg po q 6 hrs no signs of toxic megacolon on imaging, will consider IV flagyl if patient does worse clinically and increasing vanco po to 500 mg q6 (4) Abdominal pain Current Visit: Yes Status: Acute Secondary to C diff colitis concern for other etiology enlight of the CT findings including ileus/enteritis/ esophagitis etc recommend repeating CT abdomen/pelvis consider GI consult LFTs mildly elevated. Lipase and amylase within normal limits. CT abdomen and pelvis on 04/03/2018: Cholelithiasis, small amount of gas within the bladder. Decreased small bowel distention with small bowel wall thickening in the left upper quadrant; no toxic megacolon Qualifiers: Abdominal location: generalized Qualified Code(s): R10.84 - Generalized abdominal pain (5) Ileus Current Visit: Yes Status: Acute (6) Leukocytosis Current Visit: Yes Status: Acute Qualifiers: Leukocytosis type: unspecified Qualified Code(s): D72.829 - Elevated white blood cell count, unspecified (7) UTI (urinary tract infection) due to urinary indwelling Chandra catheter Current Visit: Yes Status: Acute Qualifiers: Indwelling urinary catheter type: indwelling urethral catheter Encounter type: subsequent encounter Qualified Code(s): T83.511D - Infection and inflammatory reaction due to indwelling urethral catheter, subsequent encounter ; N39.0 - Urinary tract infection, site not specified - Subjective Interval history: Patient seen and examined. Patient seen and examined. Clinically unchanged. Diarrhea improved. Breathing improved no cough. Denies any specific complaint. Afebrile. No urinary symptoms. Has good appetite. Infect Dis PN-Objective Data - Labs CBC & Chem 7: 04/05/18 04:25 04/05/18 04:25 Labs: Laboratory Results - last 24 hr 04/05/18 04/05/18 04/05/18 04:25 04:25 09:20 WBC 18.8 H RBC 4.57 Hgb 10.1 L Hct 35.7 MCV 78.1 L MCH 22.1 L MCHC 28.3 L RDW 20.8 H Plt Count 444 H MPV 12.4 Immature Gran % 0.7 Seg Neutrophils % 76.4 Lymphocytes % 16.9 Monocytes % 3.9 Eosinophils % 1.8 Basophils % 0.3 Neutrophils # 14.4 H Lymphocytes # 3.2 Monocytes # 0.7 Eosinophils # 0.3 Basophils # 0.1 Nucleated RBCs/100 WBC 0.1 H Platelet Estimate Normal Large Platelets Present A Hypochromasia Present A Anisocytosis 2+ A Microcytosis Present A Sodium 138 Potassium 3.8 Chloride 97 L Carbon Dioxide 34 H BUN 8 Creatinine 0.46 L Est GFR ( Amer) > 60 Est GFR (Non-Af Amer) > 60 BUN/Creatinine Ratio 17 Glucose 111 H Calculated Osmolality 285 Calcium 8.4 L Nasal Screen MRSA (PCR) Chlamy pneumoniae PCR Not Detected Adenovirus (PCR) Not Detected B. pertussis DNA (PCR) Not Detected B.parapertussis DNA PCR Not Detected Coronavirus OC43 (PCR) Not Detected Coronavirus HKU1 (PCR) Not Detected Coronavirus 229E (PCR) Not Detected Coronavirus NL63 (PCR) Not Detected Human Metapneumovir PCR Not Detected Influenza A (H1) PCR Not Detected Influ A (H1N1/09) PCR Not Detected Influenza A (H3) PCR Not Detected Influenza A Untype (PCR) Not Detected Influenza Type B (PCR) Not Detected M.pneumoniae DNA (PCR) Not Detected Parainfluenza 1 (PCR) Not Detected Parainfluenza 2 (PCR) Not Detected Parainfluenza 3 (PCR) Not Detected Parainfluenza 4 (PCR) Not Detected RSV (PCR) Not Detected Entero/Rhino (PCR) Not Detected 04/05/18 09:20 WBC RBC Hgb Hct MCV MCH MCHC RDW Plt Count MPV Immature Gran % Seg Neutrophils % Lymphocytes % Monocytes % Eosinophils % Basophils % Neutrophils # Lymphocytes # Monocytes # Eosinophils # Basophils # Nucleated RBCs/100 WBC Platelet Estimate Large Platelets Hypochromasia Anisocytosis Microcytosis Sodium Potassium Chloride Carbon Dioxide BUN Creatinine Est GFR ( Amer) Est GFR (Non-Af Amer) BUN/Creatinine Ratio Glucose Calculated Osmolality Calcium Nasal Screen MRSA (PCR) Negative Chlamy pneumoniae PCR Adenovirus (PCR) B. pertussis DNA (PCR) B.parapertussis DNA PCR Coronavirus OC43 (PCR) Coronavirus HKU1 (PCR) Coronavirus 229E (PCR) Coronavirus NL63 (PCR) Human Metapneumovir PCR Influenza A (H1) PCR Influ A (H1N1/) PCR Influenza A (H3) PCR Influenza A Untype (PCR) Influenza Type B (PCR) M.pneumoniae DNA (PCR) Parainfluenza 1 (PCR) Parainfluenza 2 (PCR) Parainfluenza 3 (PCR) Parainfluenza 4 (PCR) RSV (PCR) Entero/Rhino (PCR) Cultures: Cultures 03/27/18 04:15 Legionella Antigen - Final Urine,[place] Streptococcus pneumoniae Antigen (M - Final Serology 04/05/18 04/05/18 03/29/18 Range/Units 09:20 09:20 08:40 Urine Color (Yellow) Urine Clarity (Clear) Urine pH (5.0-8.0) pH Units Ur Specific [place] (1.010-1.025) Urine Protein (Neg-Trace) mg/dL Urine Glucose (UA) (Normal) mg/dL Urine Ketones (Negative) mg/dL Urine Blood (Negative) Urine Nitrite (Negative) Urine Bilirubin (Negative) Urine Urobilinogen (Normal) mg/dL Ur Leukocyte Esterase (Negative) Urine Microscopic RBC (0-3) per hpf Urine Microscopic WBC (0-3) per hpf Ur Squamous Epith Cells (None-Few) per lpf Urine Bacteria (None-Few) per hpf Hyaline Casts (None-Few) per lpf Urine Yeast Ur Culture Indicated? (NO) Nasal Screen MRSA (PCR) Negative (Negative) Stl C. cayetanensis PCR (Not detect) Stool Rotavirus A PCR (Not detect) Stl Adenov F 40/41 PCR (Not detect) Stool Astrovirus (PCR) (Not detect) Stool Campylobacter PCR (Not detect) Stl C. diff Tox B Gene (Negative) Stl C. diff Tox A/B PCR (Not detect) Stool Cryptosporidium PCR (Not detect) Stl Sh Tox Pr E STEC PCR (Not detect) Stool E coli O157 PCR (Not detect) Stl Enterotoxigenic E PCR (Not detect) Stool EPEC (PCR) (Not detect) Stool EAEC (PCR) (Not detect) Stl E. histolytica PCR (Not detect) Stool Giardia Lamblia PCR (Not detect) Stool Salmonella PCR (Not detect) Stool Sapovirus (PCR) (Not detect) Stl P. shigelloides PCR (Not detect) Stl Shigella/EIEC PCR (Not detect) St Y.enterocolitica PCR (Not detect) Stool Vibrio (PCR) (Not detect) Stl Vibrio cholerae PCR (Not detect) Stl Norovirus GI/GII PCR (Not detect) Stl GI Panel (PCR) Com Chlamy pneumoniae PCR Not Detected (Not Detect) Adenovirus (PCR) Not Detected (Not Detect) B. pertussis DNA (PCR) Not Detected (Not Detect) B.parapertussis DNA PCR Not Detected (Not Detect) Coronavirus OC43 (PCR) Not Detected (Not Detect) Coronavirus HKU1 (PCR) Not Detected (Not Detect) Coronavirus 229E (PCR) Not Detected (Not Detect) Coronavirus NL63 (PCR) Not Detected (Not Detect) Human Metapneumovir PCR Not Detected (Not Detect) Influenza A (H1) PCR Not Detected (Not Detect) Influ A (H1N1/09) PCR Not Detected (Not Detect) Influenza A (H3) PCR Not Detected (Not Detect) Influenza A Untype (PCR) Not Detected (Not Detect) Influenza Type B (PCR) Not Detected (Not Detect) Mycoplasma pneumon IgG 0.30 H (<=0.09) U/L Mycoplasma pneumon IgM 0.06 (<=0.76) U/L M.pneumoniae DNA (PCR) Not Detected (Not Detect) Parainfluenza 1 (PCR) Not Detected (Not Detect) Parainfluenza 2 (PCR) Not Detected (Not Detect) Parainfluenza 3 (PCR) Not Detected (Not Detect) Parainfluenza 4 (PCR) Not Detected (Not Detect) RSV (PCR) Not Detected (Not Detect) Entero/Rhino (PCR) Not Detected (Not Detect) 03/27/18 03/26/18 03/26/18 Range/Units 04:15 20:10 20:10 Urine Color Yellow (Yellow) Urine Clarity Clear (Clear) Urine pH 5.5 (5.0-8.0) pH Units Ur Specific [place] 1.023 (1.010-1.025) Urine Protein Negative (Neg-Trace) mg/dL Urine Glucose (UA) Normal (Normal) mg/dL Urine Ketones Negative (Negative) mg/dL Urine Blood Trace H (Negative) Urine Nitrite Negative (Negative) Urine Bilirubin Negative (Negative) Urine Urobilinogen Normal (Normal) mg/dL Ur Leukocyte Esterase Small H (Negative) Urine Microscopic RBC 3-5 H (0-3) per hpf Urine Microscopic WBC 5-15 H (0-3) per hpf Ur Squamous Epith Cells Many H (None-Few) per lpf Urine Bacteria None Seen (None-Few) per hpf Hyaline Casts Few (None-Few) per lpf Urine Yeast Test Not Performed Ur Culture Indicated? NO. A (NO) Nasal Screen MRSA (PCR) (Negative) Stl C. cayetanensis PCR Not detected (Not detect) Stool Rotavirus A PCR Not detected (Not detect) Stl Adenov F 40/41 PCR Not detected (Not detect) Stool Astrovirus (PCR) Not detected (Not detect) Stool Campylobacter PCR Not detected (Not detect) Stl C. diff Tox B Gene Positive A (Negative) Stl C. diff Tox A/B PCR See reflex test A (Not detect) Stool Cryptosporidium PCR Not detected (Not detect) Stl Sh Tox Pr E STEC PCR Not detected (Not detect) Stool E coli O157 PCR Not detected (Not detect) Stl Enterotoxigenic E PCR Not detected (Not detect) Stool EPEC (PCR) Not detected (Not detect) Stool EAEC (PCR) Not detected (Not detect) Stl E. histolytica PCR Not detected (Not detect) Stool Giardia Lamblia PCR Not detected (Not detect) Stool Salmonella PCR Not detected (Not detect) Stool Sapovirus (PCR) Not detected (Not detect) Stl P. shigelloides PCR Not detected (Not detect) Stl Shigella/EIEC PCR Not detected (Not detect) St Y.enterocolitica PCR Not detected (Not detect) Stool Vibrio (PCR) Not detected (Not detect) Stl Vibrio cholerae PCR Not detected (Not detect) Stl Norovirus GI/GII PCR Not detected (Not detect) Stl GI Panel (PCR) Com See below Chlamy pneumoniae PCR (Not Detect) Adenovirus (PCR) (Not Detect) B. pertussis DNA (PCR) (Not Detect) B.parapertussis DNA PCR (Not Detect) Coronavirus OC43 (PCR) (Not Detect) Coronavirus HKU1 (PCR) (Not Detect) Coronavirus 229E (PCR) (Not Detect) Coronavirus NL63 (PCR) (Not Detect) Human Metapneumovir PCR (Not Detect) Influenza A (H1) PCR (Not Detect) Influ A (H1N1/09) PCR (Not Detect) Influenza A (H3) PCR (Not Detect) Influenza A Untype (PCR) (Not Detect) Influenza Type B (PCR) (Not Detect) Mycoplasma pneumon IgG (<=0.09) U/L Mycoplasma pneumon IgM (<=0.76) U/L M.pneumoniae DNA (PCR) (Not Detect) Parainfluenza 1 (PCR) (Not Detect) Parainfluenza 2 (PCR) (Not Detect) Parainfluenza 3 (PCR) (Not Detect) Parainfluenza 4 (PCR) (Not Detect) RSV (PCR) (Not Detect) Entero/Rhino (PCR) (Not Detect) Exam - Constitutional Vitals: Temp Pulse Resp BP Pulse Ox 97.6 F 67 16 122/78 97 04/05/18 14:14 04/05/18 14:14 04/05/18 14:14 04/05/18 14:14 04/05/18 14:14 General appearance: no acute distress, no febrile - Head Head exam: Present: atraumatic, normocephalic - Eye Eye exam: Present: EOMI, PERRL - Neck Neck exam: Present: full ROM. Absent: meningismus - Respiratory Additional comments: Diffuse rhonchi at the bases. Chest expanding symmetrically. Some fine wheezing - Cardiovascular Cardiovascular exam: Present: RRR, +S1, +S2 - GI/Abdominal GI/Abdominal exam: Present: normal bowel sounds, soft, tenderness - Extremities Exam Extremities exam: Present: normal inspection Consult Discharge Plan - Plan Referrals: Kathy Acosta DO [Resident] -
--- NOTE | 2018-04-05 16:22 | Event Note ---
Date of Encounter: 04/05/18 Time of Encounter: 10:00 I have seen and examined this pt independently. I have discussed with resident physician Dr Brumfield and medical student regarding the management plan. Please refer the progress note for details.
[2018-04-05] MEDS: traZODone 50 MG TABLET PO SCH (21:01)
[2018-04-06] MEDS: Ipratropium/Albuterol Neb 3 ML IH SCH ×7 (00:34→23:29)
[2018-04-06] MEDS: Piperacillin/Tazobactam 3.375 GM in 0.9 % Sodium Chloride Mini Bag 100 ML IVPB SCH ×3 (01:44→17:15)
[2018-04-06] MEDS: *HR* Heparin 5,000 UNIT/ML VIAL SQ SCH ×3 (06:36→21:54)
[2018-04-06] MEDS: Beclomethasone 80mcg MDI IH SCH ×2 (07:44→20:22)
[2018-04-06] MEDS: Tiotropium 18 MCG inhalation IH SCH (07:48)
[2018-04-06 08:26] LABS: Basophils % 0.1 %; Hematocrit 31.3 % (35.3-44.9); Hemoglobin 9.2 g/dL (11.5-15.4); Immature Granulocytes % 0.7 % (0-4); Lymphocytes # 2.6 K/mcL (0.6-4.6); Lymphocytes % 12.9 %; Mean Corpuscular HGB Conc 29.4 g/dL (31.6-35.5); Mean Corpuscular Hemoglobin 22.3 pg (28.0-33.3); Monocytes % 4.9 %; Neutrophils # 16.4 K/mcL (1.6-8.9); Platelet Count 471 K/mcL (140-400); Red Blood Count 4.12 M/mcL (3.82-4.97); Red Cell Distribution Width 20.7 % (11.5-14.5); Segmented Neutrophils % 81.4 %
[2018-04-06 08:33] LABS: BUN/Creatinine Ratio 23 (6-26); Blood Urea Nitrogen 12 mg/dL (8-23); Calcium 8.5 mg/dL (8.6-10.3); Carbon Dioxide 30 mEq/L (23-29); Chloride 100 mEq/L (98-107); Glucose 130 mg/dL (70-105); Osmolality,Calculated 286 (280-300); Potassium 3.7 mEq/L (3.5-5.1); Sodium 137 mEq/L (136-145); eGFR For Non-African Americans > 60 (> 60)
[2018-04-06] MEDS: Insulin LISPRO 300 UNITS/3 ML VIAL SQ SCH ×5 (09:35→22:01)
[2018-04-06] MEDS: predniSONE 20 MG TABLET PO SCH (09:37)
[2018-04-06] MEDS: Sucralfate 1 GM TABLET PO SCH ×3 (09:37→17:15)
[2018-04-06] MEDS: amLODIPine 5 MG TABLET PO SCH (09:37)
[2018-04-06] MEDS: Lisinopril 20 MG TABLET PO SCH (09:37)
[2018-04-06] MEDS: Vancomycin Oral Soln 125 MG/2.5 ML UDC PO SCH ×4 (09:37→21:52)
[2018-04-06] MEDS: Metoprolol 100 MG TABLET PO SCH ×2 (09:37→21:51)
[2018-04-06] MEDS: Lactobacillus 1 EACH CAP.SPRINK PO SCH ×2 (09:37→21:51)
[2018-04-06] MEDS: Aspirin 81 MG TAB.CHEW PO SCH (09:37)
[2018-04-06] MEDS: Magnesium Oxide 400 MG TABLET PO SCH (09:38)
[2018-04-06] MEDS: Gabapentin 100 MG CAPSULE PO SCH ×3 (09:38→21:51)
[2018-04-06] MEDS: Furosemide 40 MG TABLET PO SCH (09:38)
[2018-04-06] MEDS: OXYCODONE Oral CONC 10 MG/0.5 ML ORAL.SYG SL PRN ×2 (09:55→17:37)
--- NOTE | 2018-04-06 11:40 | Internal Med Progress Note ---
Hospitalist Progress Note - Encounter Date of Encounter: 04/06/18 Time of Encounter: 09:00 - Subjective Interval History: Pt feels better, more awake alert, still cough with minimal sputum. Stool is loose but formed. No overnight fever, in no acute respiratory distress. - Exam Vitals: Temp Pulse Resp BP Pulse Ox 99.0 F 71 18 121/63 87 04/06/18 10:18 04/06/18 10:18 04/06/18 11:25 04/06/18 10:18 04/06/18 11:25 Exam: General - female sitting on side of bed. On nasal cannula. Not in acute distress Cardiovascular - RRR no m/r/g Lungs - Diffuse b/l rhonchi, worse on the left Psychiatry - Affect congruent with mood Abdomen - Normal bowel sounds, non-distended, no guarding, soft, abdomen mildly tender to palpation in epigastric and right upper quadrant Extremities - Right LE red, warm, tender to palpation, and slightly swollen. Left UE swollen and tender to palpation at IV site. Ulcer at dorsum of right foot. Seems chronic and not infected. Neurological Alert and oriented x 3, right upper and lower extremities paralysis due to previous CVA - Assessment and Plan (1) Sepsis Current Visit: No Status: Resolved Assessment and Plan: Due to C diff colitis and a pneumonia WBC Still high (mild elevated from yesterday possibly due to newly started prednisone) ID consulted, on PO vanco for C Diff and iv vanco and zosyn for pneumonia. Clinically improved. (2) HTN (hypertension) Current Visit: Yes Status: Chronic Assessment and Plan: Stable with current medication continue current regimen (3) CAD (coronary artery disease) Current Visit: Yes Status: Chronic Assessment and Plan: Prior history, CABG x 5. Continue ASA, statin, plavix, Continue telemetry. Cardiology signed off, recommending outpatient stress test and follow up. Pt denies chest pain. (4) Hypokalemia Current Visit: Yes Status: Resolved Assessment and Plan: Resolved (5) Chest pain Current Visit: Yes Status: Resolved Assessment and Plan: Presented for chest pain. Troponin max 0.23, decreased to 0.19. Cardiology consulted and believes this to be due to demand ischemia/ NSTEMI II due to UTI. EKG NSR echo, normal EF 70% Continue ASA, statin, Plavix, metoprolol Cardiology signed off, stress test outpatient Pt has no chest pain now. (6) Weight loss Current Visit: Yes Status: Acute Assessment and Plan: -Nutrition consulted, recommended Ensure twice a day (7) History of CVA (cerebrovascular accident) Current Visit: No Status: Chronic Assessment and Plan: CVA X2, Continue ASA and Plavix - Swallow evaluation done, diet placed per speech therapist recommendation. (8) COPD (chronic obstructive pulmonary disease) Current Visit: Yes Status: Acute Assessment and Plan: Acute COPD exacerbation as patient's O2 demand is increasing, in the setting of pneumonia Cont Duoneb Q4H linda, Q2H prn O2 supplement as needed, Oxymask 5 L currently continue Qvar, Spiriva Prednisone 40mg po daily Cont abx for pneumonia (9) Pneumonia Current Visit: Yes Status: Resolved Assessment and Plan: CT abd/pelvis showed multifocal pneumonia - strep, legionella are ngeative - mycoplasma negative - resp panel negative - continue O2 support - duonebs Q4H linda, Q2H prn continue broad-spectrum antibiotic zosyn. - ID consult. Recommend iv vanco and zosyn (10) C. difficile colitis Current Visit: Yes Status: Acute Assessment and Plan: Cont po Vanco. Zofran for nausea on probiotics. ID consult. (11) Cholelithiasis Current Visit: Yes Status: Acute Assessment and Plan: Her CT of abdomen did not show any acute cholecystitis continue symptomatic and supportive care (12) Hypomagnesemia Current Visit: Yes Status: Acute Assessment and Plan: Continue replacing as needed. (13) Chronic anemia Current Visit: Yes Status: Acute Assessment and Plan: Anemia of chronic disease or iron deficiency. Iron level < 10, will start po iron pills. (14) Diabetes type 2, controlled Current Visit: Yes Status: Acute Assessment and Plan: Holding home meds. Currently well controlled on LSSI. (15) Acute and chronic respiratory failure with hypoxia Current Visit: Yes Status: Acute Assessment and Plan: Due to pneumonia and physical deconditioning continue Neb treatments as needed continue zosyn at this point. (16) Ileus Current Visit: Yes Status: Acute Assessment and Plan: CT of abdomen showed small bowel obstruction/ileus surgery consulted and appreciate their recommendations continue symptomatic and supportive care Maintain electrolytes in normal limit. (17) Abdominal pain Current Visit: Yes Status: Acute Assessment and Plan: May be due to C Diff colitis or ileus. Abd CT shows no other significant changes except colitis. - GI consult appreciated. Cont treatment for C Diff DVT Prophylaxis: Heparin SQ - Time Spent with Patient Total time spent is greater than 50% in coordination of care (as documented) at patient's floor/unit and/or counseling patient: 40 min Greater than 35 minutes Plan of Care Discussed with: patient Internal Medicine: Result - Labs CBC & Chem 7: 04/06/18 08:01 04/06/18 08:01 Labs: Short CBC 04/06/18 Range/Units 08:01 WBC 20.2 H (4.3-11.1) K/mcL Hgb 9.2 L (11.5-15.4) g/dL Hct 31.3 L (35.3-44.9) % Plt Count 471 H (140-400) K/mcL Neutrophils # 16.4 H (1.6-8.9) K/mcL BMP 04/06/18 08:01 Sodium 137 Potassium 3.7 Chloride 100 Carbon Dioxide 30 H BUN 12 Creatinine 0.53 L Glucose 130 H Calcium 8.5 L - ABG Interpretation ABG results: ABG ABG pH 7.42 pH Units (7.32-7.45) 03/28/18 20:10 ABG pCO2 43 mmHg (35-45) 03/28/18 20:10 ABG pO2 55 mmHg (85-104) L 03/28/18 20:10 ABG O2 Saturation 88 % (95-98) L 03/28/18 20:10 PT/INR, D-dimer PT 17.8 Seconds (9.4-12.1) H 04/02/18 06:17 Consult Discharge Plan - Plan Referrals: Kathy Acosta DO [Resident] - (1) Sepsis Qualifiers: Sepsis type: sepsis due to unspecified organism Qualified Code(s): A41.9 - Sepsis, unspecified organism (2) HTN (hypertension) Qualifiers: Hypertension type: essential hypertension Qualified Code(s): I10 - Essential (primary) hypertension (3) CAD (coronary artery disease) Qualifiers: Coronary Disease-Associated Artery/Lesion type: [place] artery [place] vs. transplanted heart: [place] heart Associated angina: without angina Qualified Code(s): I25.10 - Atherosclerotic heart disease of [place] coronary artery without angina pectoris (5) Chest pain Qualifiers: Chest pain type: chest pain due to myocardial ischemia Ischemic chest pain type: unstable angina pectoris Qualified Code(s): I20.0 - Unstable angina (8) COPD (chronic obstructive pulmonary disease) Qualifiers: COPD type: chronic bronchitis Chronic bronchitis type: mucopurulent Qualified Code(s): J41.1 - Mucopurulent chronic bronchitis (9) Pneumonia Qualifiers: Pneumonia type: due to unspecified organism Laterality: bilateral Lung location: lower lobe of lung Qualified Code(s): J18.1 - Lobar pneumonia, unspecified organism (11) Cholelithiasis Qualifiers: Cholelithiasis location: gallbladder Cholecystitis presence: without cholecystitis Biliary obstruction: without biliary obstruction Qualified Code( s): K80.20 - Calculus of gallbladder without cholecystitis without obstruction (14) Diabetes type 2, controlled Qualifiers: Diabetes mellitus residential insulin use: with equipment operator intermodal yard use Diabetes mellitus complication status: with hyperglycemia Qualified Code(s): E11.65 - Type 2 diabetes mellitus with hyperglycemia; Z79.4 - terminal system 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 (17) Abdominal pain Qualifiers: Abdominal location: generalized Qualified Code(s): R10.84 - Generalized abdominal pain
[2018-04-06] MEDS: traZODone 50 MG TABLET PO SCH (21:51)
[2018-04-07] MEDS: Piperacillin/Tazobactam 3.375 GM in 0.9 % Sodium Chloride Mini Bag 100 ML IVPB SCH ×4 (00:45→23:54)
[2018-04-07] MEDS: Ipratropium/Albuterol Neb 3 ML IH SCH ×6 (04:02→23:40)
[2018-04-07] MEDS: *HR* Heparin 5,000 UNIT/ML VIAL SQ SCH ×3 (06:26→20:19)
[2018-04-07 06:35] LABS: Basophils % 0.1 %; Immature Granulocytes % 0.6 % (0-4); Mean Platelet Volume 12.2 fL (9.4-12.4)
[2018-04-07 06:37] LABS: Eosinophils # 0.1 K/mcL (0.0-0.6); Eosinophils % 0.5 %; Hematocrit 32.9 % (35.3-44.9); Hemoglobin 9.3 g/dL (11.5-15.4); Lymphocytes # 2.2 K/mcL (0.6-4.6); Lymphocytes % 9.8 %; Mean Corpuscular HGB Conc 28.3 g/dL (31.6-35.5); Monocytes % 4.5 %; Neutrophils # 19.2 K/mcL (1.6-8.9); Platelet Count 502 K/mcL (140-400); Red Blood Count 4.22 M/mcL (3.82-4.97); Red Cell Distribution Width 20.6 % (11.5-14.5); Segmented Neutrophils % 84.5 %
[2018-04-07 06:51] LABS: Platelet Estimate Increased (Normal)
[2018-04-07 06:52] LABS: Anisocytosis 2+ (Not Present); Hypochromasia Present (Not Present); Target Cells 1+ (Not Present)
[2018-04-07 06:57] LABS: BUN/Creatinine Ratio 24 (6-26); Blood Urea Nitrogen 16 mg/dL (8-23); Calcium 8.4 mg/dL (8.6-10.3); Carbon Dioxide 30 mEq/L (23-29); Chloride 102 mEq/L (98-107); Glucose 132 mg/dL (70-105); Osmolality,Calculated 293 (280-300); Potassium 4.2 mEq/L (3.5-5.1); Sodium 140 mEq/L (136-145); eGFR For Non-African Americans > 60 (> 60)
[2018-04-07] MEDS: Tiotropium 18 MCG inhalation IH SCH (07:41)
[2018-04-07] MEDS: Beclomethasone 80mcg MDI IH SCH ×2 (07:44→19:53)
[2018-04-07] MEDS: Metoprolol 100 MG TABLET PO SCH ×2 (08:46→20:19)
[2018-04-07] MEDS: Aspirin 81 MG TAB.CHEW PO SCH (08:46)
[2018-04-07] MEDS: Sucralfate 1 GM TABLET PO SCH ×3 (08:46→15:45)
[2018-04-07] MEDS: Lactobacillus 1 EACH CAP.SPRINK PO SCH ×2 (08:46→20:19)
[2018-04-07] MEDS: Gabapentin 100 MG CAPSULE PO SCH ×3 (08:46→20:19)
[2018-04-07] MEDS: Insulin LISPRO 300 UNITS/3 ML VIAL SQ SCH ×3 (08:46→20:20)
[2018-04-07] MEDS: Magnesium Oxide 400 MG TABLET PO SCH (08:46)
[2018-04-07] MEDS: Furosemide 40 MG TABLET PO SCH (08:46)
[2018-04-07] MEDS: Vancomycin Oral Soln 125 MG/2.5 ML UDC PO SCH ×4 (08:47→20:20)
[2018-04-07] MEDS: Lisinopril 20 MG TABLET PO SCH (08:47)
[2018-04-07] MEDS: OXYCODONE Oral CONC 10 MG/0.5 ML ORAL.SYG SL PRN ×3 (08:47→22:06)
[2018-04-07] MEDS: predniSONE 20 MG TABLET PO SCH (08:47)
[2018-04-07] MEDS: amLODIPine 5 MG TABLET PO SCH (08:47)
--- NOTE | 2018-04-07 12:26 | Internal Med Progress Note ---
Hospitalist Progress Note - Encounter Date of Encounter: 04/07/18 Time of Encounter: 09:00 - Subjective Interval History: Pt feels much better, still cough with minimal sputum, no respiratory distress. Stool is formed. Two BMs last night. Pt has good appetite this morning and eat well. No overnight fever. Pt ask if she can go home. - Exam Vitals: Temp Pulse Resp BP Pulse Ox 98.5 F 67 16 154/69 93 04/07/18 09:58 04/07/18 09:58 04/07/18 11:09 04/07/18 09:58 04/07/18 11:09 Exam: General - female sitting on side of bed. On nasal cannula. Not in acute distress Cardiovascular - RRR no m/r/g Lungs - Scattered b/l rhonchi Psychiatry - Affect congruent with mood Abdomen - Normal bowel sounds, non-distended, no guarding, soft, still mild tenderness. Extremities - Right LE red, warm, tender to palpation, and slightly swollen. Left UE swollen and tender to palpation at IV site. Ulcer at dorsum of right foot. Seems chronic and not infected. Neurological Alert and oriented x 3, right upper and lower extremities paralysis due to previous CVA - Assessment and Plan (1) Sepsis Current Visit: No Status: Resolved Assessment and Plan: Due to C diff colitis and a pneumonia WBC Still high (also may be due to prednisone use) ID consulted, on PO vanco for C Diff and iv vanco and zosyn for pneumonia now. Clinically significantly improved. (2) HTN (hypertension) Current Visit: Yes Status: Chronic Assessment and Plan: Stable with current medication continue current regimen (3) CAD (coronary artery disease) Current Visit: Yes Status: Chronic Assessment and Plan: Prior history, CABG x 5. Continue ASA, statin, plavix, Continue telemetry. Cardiology signed off, recommending outpatient stress test and follow up. Pt denies chest pain. (4) Hypokalemia Current Visit: Yes Status: Resolved Assessment and Plan: Resolved (5) Chest pain Current Visit: Yes Status: Resolved Assessment and Plan: Presented for chest pain. Troponin max 0.23, decreased to 0.19. Cardiology consulted and believes this to be due to demand ischemia/ NSTEMI II due to UTI. EKG NSR echo, normal EF 70% Continue ASA, statin, Plavix, metoprolol Cardiology signed off, stress test outpatient Pt has no chest pain now. (6) Weight loss Current Visit: Yes Status: Acute Assessment and Plan: Possibly due to poor intake -Nutrition consulted, recommended Ensure twice a day (7) History of CVA (cerebrovascular accident) Current Visit: No Status: Chronic Assessment and Plan: CVA X2, Continue ASA and Plavix - Swallow evaluation done, diet placed per speech therapist recommendation. (8) COPD (chronic obstructive pulmonary disease) Current Visit: Yes Status: Acute Assessment and Plan: Acute COPD exacerbation as patient's O2 demand is increasing, in the setting of pneumonia Cont Duoneb Q4H linda, Q2H prn O2 supplement as needed, NC 4L currently continue Qvar, Spiriva Prednisone 40mg po daily Cont abx for pneumonia (9) Pneumonia Current Visit: Yes Status: Resolved Assessment and Plan: CT abd/pelvis showed multifocal pneumonia - strep, legionella are ngeative - mycoplasma negative - resp panel negative - continue O2 support - duonebs Q4H linda, Q2H prn continue broad-spectrum antibiotic zosyn. - ID consult. Recommend iv vanco and zosyn, will follow ID further recommendation. (10) C. difficile colitis Current Visit: Yes Status: Acute Assessment and Plan: First time C Ciff colitis, Clinically improved, diarrhea stopped. Cont po Vanco. Zofran for nausea on probiotics. ID consult. (11) Cholelithiasis Current Visit: Yes Status: Acute Assessment and Plan: Her CT of abdomen did not show any acute cholecystitis. (12) Hypomagnesemia Current Visit: Yes Status: Acute Assessment and Plan: Continue replacing as needed. (13) Chronic anemia Current Visit: Yes Status: Acute Assessment and Plan: Anemia of chronic disease or iron deficiency. Iron level < 10, will start po iron pills. (14) Diabetes type 2, controlled Current Visit: Yes Status: Acute Assessment and Plan: Holding home meds. Currently well controlled on LSSI. (15) Acute and chronic respiratory failure with hypoxia Current Visit: Yes Status: Acute Assessment and Plan: Due to pneumonia and physical deconditioning continue Neb treatments as needed continue zosyn and vanco. (16) Ileus Current Visit: Yes Status: Acute Assessment and Plan: Improved. Pt has good BMs. (17) Abdominal pain Current Visit: Yes Status: Acute Assessment and Plan: May be due to C Diff colitis or ileus. Abd CT shows no other significant changes except colitis. - GI consult appreciated. Cont treatment for C Diff DVT Prophylaxis: Heparin SQ - Time Spent with Patient Total time spent is greater than 50% in coordination of care (as documented) at patient's floor/unit and/or counseling patient: 40 min Greater than 35 minutes Plan of Care Discussed with: patient Internal Medicine: Result - Labs CBC & Chem 7: 04/07/18 05:54 04/07/18 05:54 Labs: Short CBC 04/07/18 Range/Units 05:54 WBC 22.7 H (4.3-11.1) K/mcL Hgb 9.3 L (11.5-15.4) g/dL Hct 32.9 L (35.3-44.9) % Plt Count 502 H (140-400) K/mcL Neutrophils # 19.2 H (1.6-8.9) K/mcL BMP 04/07/18 05:54 Sodium 140 Potassium 4.2 Chloride 102 Carbon Dioxide 30 H BUN 16 Creatinine 0.68 Glucose 132 H Calcium 8.4 L - ABG Interpretation ABG results: ABG ABG pH 7.42 pH Units (7.32-7.45) 03/28/18 20:10 ABG pCO2 43 mmHg (35-45) 03/28/18 20:10 ABG pO2 55 mmHg (85-104) L 03/28/18 20:10 ABG O2 Saturation 88 % (95-98) L 03/28/18 20:10 PT/INR, D-dimer PT 17.8 Seconds (9.4-12.1) H 04/02/18 06:17 Consult Discharge Plan - Plan Referrals: Kathy Aocsta DO [Resident] - (1) Sepsis Qualifiers: Sepsis type: sepsis due to unspecified organism Qualified Code(s): A41.9 - Sepsis, unspecified organism (2) HTN (hypertension) Qualifiers: Hypertension type: essential hypertension Qualified Code(s): I10 - Essential (primary) hypertension (3) CAD (coronary artery disease) Qualifiers: Coronary Disease-Associated Artery/Lesion type: [place] artery [place] vs. transplanted heart: [place] heart Associated angina: without angina Qualified Code(s): I25.10 - Atherosclerotic heart disease of [place] coronary artery without angina pectoris (5) Chest pain Qualifiers: Chest pain type: chest pain due to myocardial ischemia Ischemic chest pain type: unstable angina pectoris Qualified Code(s): I20.0 - Unstable angina (8) COPD (chronic obstructive pulmonary disease) Qualifiers: COPD type: chronic bronchitis Chronic bronchitis type: mucopurulent Qualified Code(s): J41.1 - Mucopurulent chronic bronchitis (9) Pneumonia Qualifiers: Pneumonia type: due to unspecified organism Laterality: bilateral Lung location: lower lobe of lung Qualified Code(s): J18.1 - Lobar pneumonia, unspecified organism (11) Cholelithiasis Qualifiers: Cholelithiasis location: gallbladder Cholecystitis presence: without cholecystitis Biliary obstruction: without biliary obstruction Qualified Code( s): K80.20 - Calculus of gallbladder without cholecystitis without obstruction (14) Diabetes type 2, controlled Qualifiers: Diabetes mellitus mechanism assembler insulin use: with usp use Diabetes mellitus complication status: with hyperglycemia Qualified Code(s): E11.65 - Type 2 diabetes mellitus with hyperglycemia; Z79.4 - half-way (current) use of insulin (17) Abdominal pain Qualifiers: Abdominal location: generalized Qualified Code(s): R10.84 - Generalized abdominal pain
[2018-04-07] MEDS: traZODone 50 MG TABLET PO SCH (20:19)
[2018-04-07] MEDS: Acetaminophen 325 MG TABLET PO PRN (20:32)
[2018-04-08] MEDS: Ipratropium/Albuterol Neb 3 ML IH SCH ×6 (04:21→23:36)
[2018-04-08] MEDS: *HR* Heparin 5,000 UNIT/ML VIAL SQ SCH ×3 (05:07→21:14)
[2018-04-08] MEDS: OXYCODONE Oral CONC 10 MG/0.5 ML ORAL.SYG SL PRN ×3 (05:13→20:20)
[2018-04-08] MEDS: Beclomethasone 80mcg MDI IH SCH ×2 (07:25→19:43)
[2018-04-08] MEDS: Tiotropium 18 MCG inhalation IH SCH (07:26)
[2018-04-08 07:53] LABS: Basophils % 0.2 %; Eosinophils # 0.2 K/mcL (0.0-0.6); Eosinophils % 0.8 %; Hematocrit 31.2 % (35.3-44.9); Hemoglobin 9.1 g/dL (11.5-15.4); Immature Granulocytes % 0.5 % (0-4); Lymphocytes % 12.2 %; Mean Corpuscular HGB Conc 29.2 g/dL (31.6-35.5); Mean Corpuscular Hemoglobin 22.5 pg (28.0-33.3); Mean Corpuscular Volume 77.2 fL (83.0-100.0); Monocytes # 1.3 K/mcL (0.0-1.3); Monocytes % 5.2 %; Neutrophils # 20.2 K/mcL (1.6-8.9); Platelet Count 504 K/mcL (140-400); Red Blood Count 4.04 M/mcL (3.82-4.97); Red Cell Distribution Width 20.9 % (11.5-14.5); Segmented Neutrophils % 81.1 %
[2018-04-08 07:57] LABS: Mycoplasma pneumoniae IgG 0.48 U/L (<=0.09)
[2018-04-08] MEDS: Piperacillin/Tazobactam 3.375 GM in 0.9 % Sodium Chloride Mini Bag 100 ML IVPB SCH ×3 (08:03→23:39)
[2018-04-08] MEDS: Sucralfate 1 GM TABLET PO SCH ×3 (08:06→16:34)
[2018-04-08] MEDS: Aspirin 81 MG TAB.CHEW PO SCH (08:07)
[2018-04-08] MEDS: Vancomycin Oral Soln 125 MG/2.5 ML UDC PO SCH ×4 (08:07→20:19)
[2018-04-08] MEDS: Lactobacillus 1 EACH CAP.SPRINK PO SCH ×2 (08:07→20:18)
[2018-04-08] MEDS: amLODIPine 5 MG TABLET PO SCH (08:08)
[2018-04-08] MEDS: Metoprolol 100 MG TABLET PO SCH ×2 (08:08→20:18)
[2018-04-08] MEDS: Gabapentin 100 MG CAPSULE PO SCH ×3 (08:08→20:18)
[2018-04-08] MEDS: Magnesium Oxide 400 MG TABLET PO SCH (08:08)
[2018-04-08] MEDS: Furosemide 40 MG TABLET PO SCH (08:08)
[2018-04-08] MEDS: predniSONE 20 MG TABLET PO SCH (08:09)
[2018-04-08] MEDS: Lisinopril 20 MG TABLET PO SCH (08:09)
[2018-04-08] MEDS: Insulin LISPRO 300 UNITS/3 ML VIAL SQ SCH ×4 (08:10→21:10)
[2018-04-08 08:12] LABS: BUN/Creatinine Ratio 27 (6-26); Blood Urea Nitrogen 16 mg/dL (8-23); Calcium 8.4 mg/dL (8.6-10.3); Carbon Dioxide 30 mEq/L (23-29); Chloride 102 mEq/L (98-107); Glucose 100 mg/dL (70-105); Osmolality,Calculated 291 (280-300); Potassium 3.5 mEq/L (3.5-5.1); Sodium 140 mEq/L (136-145); eGFR For Non-African Americans > 60 (> 60)
[2018-04-08 08:19] LABS: Basophils # 0.1 K/mcL (0.0-0.2)
[2018-04-08 08:27] LABS: Platelet Estimate Increased (Normal); Target Cells 1+ (Not Present)
--- NOTE | 2018-04-08 15:07 | Internal Med Progress Note ---
<Lucero Salas - Last Filed: 04/08/18 15:03> Hospitalist Progress Note - Encounter Date of Encounter: 04/08/18 Time of Encounter: 10:15 - Subjective Interval History: Ms. Lauren was examined at bedside this morning. She states her breathing has improved and she is able to expel out good amount of sputum. She still has cough. She ate dinner and this morning stated she was unable to tolerate a diet. She still has left lower abdominal pain. She stated her bowel movements are still loose. She denies fever, chills, emesis, shortness of breath and chest pain. - Exam Vitals: Temp Pulse Resp BP Pulse Ox 98.0 F 72 14 159/76 92 04/08/18 10:57 04/08/18 10:57 04/08/18 10:57 04/08/18 10:57 04/08/18 10:57 Exam: Constitutional: Alert, in no acute distress, on nasal canula HEENT: Normocephalic, atraumatic, moist mucus membrane Heart: Normal, regular rate and rhythm, no murmurs Lungs: lungs clear and equal bilaterally Abdomen: Soft, non distended, mildly tender at left lower quadrant with active bowel sounds Extremities: No edema, no clubbing; Ulcer at dorsum of right foot. Skin: Skin warm and dry, no lesions, no rashes, no jaundice Psych: thought content congruent, appropriate affect Neurological Alert and oriented x 3, right upper and lower extremities paralysis due to previous CVA - Assessment and Plan (1) Sepsis Current Visit: No Status: Resolved Assessment and Plan: Presented with sepsis secondary to C diff colitis and a pneumonia. WBC remains high and can be due to prednisone. Plan: ID consulted, on PO vanco for C Diff day 12, and iv vanco day 3 and zosyn day 9 for pneumonia. Appreciate ID recommendations for antibiotic duration Clinically significantly improved. (2) Abdominal pain Current Visit: Yes Status: Acute Assessment and Plan: May be due to C Diff colitis or ileus. Abd CT on 03/26 showed mural thickness of the distal esophagus, pyloric antrum, and several loops of small bowel in the right lower quadrant/pelvis. It also showed gallstones, but did not suggest acute cholecystitis. Patient denies hematemesis, hematochezia, melena. Her vitals and Hgb has been stable Plan: -Continue telemetry -Continue with oral vancomycin 125 mg, day 12 -Continue zofran prn -Continue omeprazole 40 mg -GI consulted. Appreciate recommendations -CT abdomen and pelvis pending (3) CAD (coronary artery disease) Current Visit: Yes Status: Chronic Assessment and Plan: Prior history, CABG x 5. Continue ASA, statin, plavix. Patient denies chest pain this morning. Plan: Continue current rosuvastatin Continue telemetry Cardiology recommended outpatietn stress test and follow up (4) HTN (hypertension) Current Visit: Yes Status: Chronic Assessment and Plan: History of chronic hypertension. Her current blood pressure 171/65. Plan: Continue home regimen Added hydralazine PRN (5) Hypokalemia Current Visit: Yes Status: Acute Assessment and Plan: Hypokalemia likely due to loose stool. Serum potassium this morning was 3.5. Plan: Replaced with potassium supplement Continue to monitor (6) Chest pain Current Visit: Yes Status: Resolved Assessment and Plan: Presented for chest pain. Troponin max 0.23, decreased to 0.19. Cardiology consulted and believes this to be due to demand ischemia/ NSTEMI II due to UTI. EKG was normal sinus rhythm. Echo was normal EF: 70%. Plan: Continue ASA, statin, Plavix, metoprolol Cardiology signed off, stress test outpatient Pt has no chest pain now Consider an EKG if chest pain (7) Weight loss Current Visit: Yes Status: Acute Assessment and Plan: Weigh loss likely due to possibly due to poor intake. Plan: Nutrition consulted Recommended Ensure twice a day (8) History of CVA (cerebrovascular accident) Current Visit: No Status: Chronic Assessment and Plan: History of CABG x 5 in 2004 Plan: -Continue with ASA, statin, and plavix -Continue telemetry -Cardiology signed off. Recommend outpatient stress test and follow up - Swallow evaluation done, diet placed per speech therapist recommendation. (9) COPD (chronic obstructive pulmonary disease) Current Visit: Yes Status: Acute Assessment and Plan: Suspected COPD exacerbation. History of COPD, uses 3 liters of oxygen at home and mucinex BID, spiriva and duonebs. Her oxygen demand increased soon after admission requiring 10 liters at one point. Today she is on 4 liters but has ongoing cough and is unable to expel out the sputum. Plan: -Pulmonology consulted -Continue with duoneb Q4h prn -Continue to wean O2 supplementation--currently on 3L O2 via nasal canula -Continue with Qvar and spiriva (10) Pneumonia Current Visit: Yes Status: Resolved Assessment and Plan: CT chest on 04/03 showed multifocal PNA, greatest in the LLL Plan: -Infectious disease and pulmonology consulted -Swallow eval negative for aspiration -Continue zosyn day 10 -IV vancomycin, day 3 (11) C. difficile colitis Current Visit: Yes Status: Acute Assessment and Plan: Patient was having 5-6 watery stools per day. She had a positive C diff toxin PCR. Continues to have diffuse abdominal pain although CT abdomen and pelvis did not suggest toxic megacolon. Plan: -GI consulted, appreciate recommendations -Had 2 BM yesterday -5 bowel moveements today -WBC 24.9, but downtrending -Continue oral Vancomycin day 12 125mg -Continue probiotics (12) Cholelithiasis Current Visit: Yes Status: Ruled-out Assessment and Plan: CT of the abdomen did not show acute cholecystitis. (13) Hypomagnesemia Current Visit: Yes Status: Acute Assessment and Plan: Continue replacing as needed (14) Chronic anemia Current Visit: Yes Status: Acute Assessment and Plan: Anemia of chronic disease or iron deficiency Plan: Iron level < 10, continue po iron pills. (15) Diabetes type 2, controlled Current Visit: Yes Status: Acute Assessment and Plan: Holding home meds, glucose 100. Plan: Currently well controlled on LSSI. (16) Acute and chronic respiratory failure with hypoxia Current Visit: Yes Status: Acute Assessment and Plan: Likely 2/2 multifocal pneumonia vs CHF. She has history of COPD and now likely has COPD exacerbation as she is requiring more oxygen and has cough. CT chest shows multifocal pneumonia. ECHO on 03/25/2018 showed EF 70% with mild dystolic dysfunction Plan: -Currently on 3L O2 nasal canula. Baseline is 3L O2 at home -Continue duoneb prn and O2 support -Continue attempting to wean down to baseline O2 use -Lasix 40mg IV -Zosyn day 10 -Pulmonology consulted: recommended oral 40 mg prednisone, QVAR, spiriva, scheduled duoneb (17) Ileus Current Visit: Yes Status: Acute Assessment and Plan: Improved. Pt has good BMs. Plan: CT abdomen/pelvis pending DVT Prophylaxis: Heparin SQ - Time Spent with Patient Total time spent is greater than 50% in coordination of care (as documented) at patient's floor/unit and/or counseling patient: 25 - 35 minutes Plan of Care Discussed with: patient Internal Medicine: Result - Labs CBC & Chem 7: 04/08/18 07:37 04/08/18 07:37 Labs: Short CBC 04/08/18 Range/Units 07:37 WBC 24.9 H (4.3-11.1) K/mcL Hgb 9.1 L (11.5-15.4) g/dL Hct 31.2 L (35.3-44.9) % Plt Count 504 H (140-400) K/mcL Neutrophils # 20.2 H (1.6-8.9) K/mcL BMP 04/08/18 07:37 Sodium 140 Potassium 3.5 Chloride 102 Carbon Dioxide 30 H BUN 16 Creatinine 0.59 L Glucose 100 Calcium 8.4 L - ABG Interpretation ABG results: ABG ABG pH 7.42 pH Units (7.32-7.45) 03/28/18 20:10 ABG pCO2 43 mmHg (35-45) 03/28/18 20:10 ABG pO2 55 mmHg (85-104) L 03/28/18 20:10 ABG O2 Saturation 88 % (95-98) L 03/28/18 20:10 PT/INR, D-dimer PT 17.8 Seconds (9.4-12.1) H 04/02/18 06:17 Consult Discharge Plan - Plan Referrals: Kathy Acosta DO [Resident] - <Evette Melendez - Last Filed: 04/08/18 16:42> Hospitalist Progress Note - Encounter Date of Encounter: 04/08/18 - Exam Vitals: Temp Pulse Resp BP Pulse Ox 98.9 F 68 16 171/65 98 04/08/18 15:06 04/08/18 15:06 04/08/18 16:14 04/08/18 15:06 04/08/18 16:14 - Assessment and Plan (1) Sepsis Current Visit: No Status: Resolved (2) HTN (hypertension) Current Visit: Yes Status: Chronic (3) CAD (coronary artery disease) Current Visit: Yes Status: Chronic (4) Hypokalemia Current Visit: Yes Status: Acute (5) Chest pain Current Visit: Yes Status: Resolved (6) Weight loss Current Visit: Yes Status: Acute (7) Abdominal pain Current Visit: Yes Status: Acute (8) History of CVA (cerebrovascular accident) Current Visit: No Status: Chronic (9) COPD (chronic obstructive pulmonary disease) Current Visit: Yes Status: Acute (10) Pneumonia Current Visit: Yes Status: Resolved (11) C. difficile colitis Current Visit: Yes Status: Acute (12) Cholelithiasis Current Visit: Yes Status: Ruled-out (13) Hypomagnesemia Current Visit: Yes Status: Acute (14) Chronic anemia Current Visit: Yes Status: Acute (15) Diabetes type 2, controlled Current Visit: Yes Status: Acute (16) Acute and chronic respiratory failure with hypoxia Current Visit: Yes Status: Acute (17) Ileus Current Visit: Yes Status: Acute - Time Spent with Patient Total time spent is greater than 50% in coordination of care (as documented) at patient's floor/unit and/or counseling patient: Internal Medicine: Result - Labs CBC & Chem 7: 04/08/18 07:37 04/08/18 07:37 Labs: Short CBC 04/08/18 Range/Units 07:37 WBC 24.9 H (4.3-11.1) K/mcL Hgb 9.1 L (11.5-15.4) g/dL Hct 31.2 L (35.3-44.9) % Plt Count 504 H (140-400) K/mcL Neutrophils # 20.2 H (1.6-8.9) K/mcL BMP 04/08/18 07:37 Sodium 140 Potassium 3.5 Chloride 102 Carbon Dioxide 30 H BUN 16 Creatinine 0.59 L Glucose 100 Calcium 8.4 L - ABG Interpretation ABG results: ABG ABG pH 7.42 pH Units (7.32-7.45) 03/28/18 20:10 ABG pCO2 43 mmHg (35-45) 03/28/18 20:10 ABG pO2 55 mmHg (85-104) L 03/28/18 20:10 ABG O2 Saturation 88 % (95-98) L 03/28/18 20:10 PT/INR, D-dimer PT 17.8 Seconds (9.4-12.1) H 04/02/18 06:17 - Attending Attestation I have seen and examined this pt independently. I have discussed with resident physician Dr Salas regarding the management plan. Agree with the documentation. <Lucero Salas - Last Filed: 04/08/18 15:03> (1) Sepsis Qualifiers: Sepsis type: sepsis due to unspecified organism Qualified Code(s): A41.9 - Sepsis, unspecified organism (2) Abdominal pain Qualifiers: Abdominal location: generalized Qualified Code(s): R10.84 - Generalized abdominal pain (3) CAD (coronary artery disease) Qualifiers: Coronary Disease-Associated Artery/Lesion type: [place] artery [place] vs. transplanted heart: [place] heart Associated angina: without angina Qualified Code(s): I25.10 - Atherosclerotic heart disease of [place] coronary artery without angina pectoris (4) HTN (hypertension) Qualifiers: Hypertension type: essential hypertension Qualified Code(s): I10 - Essential (primary) hypertension (6) Chest pain Qualifiers: Chest pain type: chest pain due to myocardial ischemia Ischemic chest pain type: unstable angina pectoris Qualified Code(s): I20.0 - Unstable angina (9) COPD (chronic obstructive pulmonary disease) Qualifiers: COPD type: chronic bronchitis Chronic bronchitis type: mucopurulent Qualified Code(s): J41.1 - Mucopurulent chronic bronchitis (10) Pneumonia Qualifiers: Pneumonia type: due to unspecified organism Laterality: bilateral Lung location: lower lobe of lung Qualified Code(s): J18.1 - Lobar pneumonia, unspecified organism (12) Cholelithiasis Qualifiers: Cholelithiasis location: gallbladder Cholecystitis presence: without cholecystitis Biliary obstruction: without biliary obstruction Qualified Code( s): K80.20 - Calculus of gallbladder without cholecystitis without obstruction (15) Diabetes type 2, controlled Qualifiers: Diabetes mellitus care home insulin use: with care home use Diabetes mellitus complication status: with hyperglycemia Qualified Code(s): E11.65 - Type 2 diabetes mellitus with hyperglycemia; Z79.4 - terminal clerk (current) use of insulin <Evette Melendez - Last Filed: 04/08/18 16:42> (1) Sepsis Qualifiers: Sepsis type: sepsis due to unspecified organism Qualified Code(s): A41.9 - Sepsis, unspecified organism (2) HTN (hypertension) Qualifiers: Hypertension type: essential hypertension Qualified Code(s): I10 - Essential (primary) hypertension (3) CAD (coronary artery disease) Qualifiers: Coronary Disease-Associated Artery/Lesion type: [place] artery [place] vs. transplanted heart: [place] heart Associated angina: without angina Qualified Code(s): I25.10 - Atherosclerotic heart disease of [place] coronary artery without angina pectoris (5) Chest pain Qualifiers: Chest pain type: chest pain due to myocardial ischemia Ischemic chest pain type: unstable angina pectoris Qualified Code(s): I20.0 - Unstable angina (7) Abdominal pain Qualifiers: Abdominal location: generalized Qualified Code(s): R10.84 - Generalized abdominal pain (9) COPD (chronic obstructive pulmonary disease) Qualifiers: COPD type: chronic bronchitis Chronic bronchitis type: mucopurulent Qualified Code(s): J41.1 - Mucopurulent chronic bronchitis (10) Pneumonia Qualifiers: Pneumonia type: due to unspecified organism Laterality: bilateral Lung location: lower lobe of lung Qualified Code(s): J18.1 - Lobar pneumonia, unspecified organism (12) Cholelithiasis Qualifiers: Cholelithiasis location: gallbladder Cholecystitis presence: without cholecystitis Biliary obstruction: without biliary obstruction Qualified Code( s): K80.20 - Calculus of gallbladder without cholecystitis without obstruction (15) Diabetes type 2, controlled Qualifiers: Diabetes mellitus care home insulin use: with exterminator termite use Diabetes mellitus complication status: with hyperglycemia Qualified Code(s): E11.65 - Type 2 diabetes mellitus with hyperglycemia; Z79.4 - group home (current) use of insulin
--- NOTE | 2018-04-08 17:06 | Infectious Disease Progress No ---
Date of Encounter: 04/08/18 Time of Encounter: 11:20 - Assessment and Plan (1) Sepsis Current Visit: No Status: Acute The patient had three SIRS criteria. Likely secondary to C. difficile and pneumonia. Improved clinically, but the patient continues to have abdominal pain and leukocytosis. Tachycardia has resolved. She has been afebrile. Blood cultures obtained 03/25/18 are negative 2 sets. Qualifiers: Sepsis type: sepsis due to unspecified organism Qualified Code(s): A41.9 - Sepsis, unspecified organism (2) Pneumonia Current Visit: Yes Status: Acute Location: Multifocal, greatest in the left lower lobe. Causative organism: Unclear. No evidence of aspiration noted on exam. Respiratory infectious panel was negative. Strep pneumococcal and legionella urinary antigens were negative. The patient has been able to provide us with 2 sputum cultures that are both negative. Continue Zosyn 3.375 g IV every 8 hours. Continue vancomycin IV. Pharmacy to dose. Goal trough proximally 15. Duration of treatment depends on the clinical picture. Monitor renal function for drug toxicity and dose adjust antibiotics. \ Qualifiers: Pneumonia type: due to unspecified organism Laterality: bilateral Lung location: lower lobe of lung Qualified Code(s): J18.1 - Lobar pneumonia, unspecified organism (3) C. difficile colitis Current Visit: Yes Status: Acute Severe. Currently on vancomycin orally dose at 125mg po q 6 hrs. No signs of toxic megacolon on imaging, will consider IV flagyl if patient does worse clinically and increasing vanco po to [address] of the abdomen and pelvis since the patient continues to have abdominal pain. (4) Abdominal pain Current Visit: Yes Status: Acute Secondary to C diff colitis. Concern for other etiology enlight of the CT findings including ileus/enteritis/ esophagitis etc. Recommend repeating CT abdomen/pelvis. GI consulted. Appreciate recommendations. LFTs mildly elevated. Lipase and amylase within normal limits.--> repeat now. CT abdomen and pelvis on 04/03/2018: Cholelithiasis, small amount of gas within the bladder. Decreased small bowel distention with small bowel wall thickening in the left upper quadrant; no toxic megacolon. Will repeat CT of the abdomen and pelvis now since the patient continues to have leukocytosis and abdominal pain. Qualifiers: Abdominal location: generalized Qualified Code(s): R10.84 - Generalized abdominal pain (5) Ileus Current Visit: Yes Status: Acute (6) UTI (urinary tract infection) Current Visit: No Status: Ruled-out Urine culture was negative. Qualifiers: Urinary tract infection type: catheter-associated UTI Indwelling urinary catheter type: indwelling urethral catheter Encounter type: initial encounter Qualified Code(s): T83.511A - Infection and inflammatory reaction due to indwelling urethral catheter, initial encounter; N39.0 - Urinary tract infection , site not specified - Subjective Interval history: Agency and examined. We can note reviewed. No acute events noted overnight. Patient states overall she feels better, but continues to have diffuse abdominal pain. Denies any fevers or chills or rigors. Denies chest pain, shortness of breath, or cough. Denies nausea, vomiting, diarrhea, or constipation. Denies any oral thrush or new skin lesions. She denies any urinary complaints or appetite changes. She states she is not eating much. Reports 3 formed stools this morning. Her white blood cell count remains elevated. Infect Dis PN-Objective Data - Labs CBC & Chem 7: 04/09/18 12:18 04/09/18 04:00 Labs: Laboratory Results - last 24 hr 04/04/18 04/05/18 04/07/18 19:06 12:12 19:51 WBC RBC Hgb Hct MCV MCH MCHC RDW Plt Count MPV Immature Gran % Seg Neutrophils % Lymphocytes % Monocytes % Eosinophils % Basophils % Neutrophils # Lymphocytes # Monocytes # Eosinophils # Basophils # Platelet Estimate Target Cells Sodium Potassium Chloride Carbon Dioxide BUN Creatinine Est GFR ( Amer) Est GFR (Non-Af Amer) BUN/Creatinine Ratio Glucose POC Glucose 134 H 283 H Calculated Osmolality Calcium Vancomycin Trough Mycoplasma pneumon IgG 0.48 H Mycoplasma pneumon IgM 0.13 04/07/18 04/08/18 04/08/18 22:50 07:37 07:37 WBC 24.9 H RBC 4.04 Hgb 9.1 L Hct 31.2 L MCV 77.2 L MCH 22.5 L MCHC 29.2 L RDW 20.9 H Plt Count 504 H MPV 12.0 Immature Gran % 0.5 Seg Neutrophils % 81.1 Lymphocytes % 12.2 Monocytes % 5.2 Eosinophils % 0.8 Basophils % 0.2 Neutrophils # 20.2 H Lymphocytes # 3.0 Monocytes # 1.3 Eosinophils # 0.2 Basophils # 0.1 Platelet Estimate Increased H Target Cells 1+ A Sodium 140 Potassium 3.5 Chloride 102 Carbon Dioxide 30 H BUN 16 Creatinine 0.59 L Est GFR ( Amer) > 60 Est GFR (Non-Af Amer) > 60 BUN/Creatinine Ratio 27 H Glucose 100 POC Glucose Calculated Osmolality 291 Calcium 8.4 L Vancomycin Trough 26 H Mycoplasma pneumon IgG Mycoplasma pneumon IgM 04/08/18 10:00 WBC RBC Hgb Hct MCV MCH MCHC RDW Plt Count MPV Immature Gran % Seg Neutrophils % Lymphocytes % Monocytes % Eosinophils % Basophils % Neutrophils # Lymphocytes # Monocytes # Eosinophils # Basophils # Platelet Estimate Target Cells Sodium Potassium Chloride Carbon Dioxide BUN Creatinine Est GFR ( Amer) Est GFR (Non-Af Amer) BUN/Creatinine Ratio Glucose POC Glucose Calculated Osmolality Calcium Vancomycin Trough 18 H Mycoplasma pneumon IgG Mycoplasma pneumon IgM Cultures: Cultures 04/05/18 13:38 Sputum Culture - Final Sputum 04/05/18 16:38 Sputum Culture - Final Sputum 03/27/18 04:15 Legionella Antigen - Final Urine,[place] Streptococcus pneumoniae Antigen (M - Final Serology 04/05/18 04/05/18 04/05/18 Range/Units 12:12 09:20 09:20 Urine Color (Yellow) Urine Clarity (Clear) Urine pH (5.0-8.0) pH Units Ur Specific Lynx (1.010-1.025) Urine Protein (Neg-Trace) mg/dL Urine Glucose (UA) (Normal) mg/dL Urine Ketones (Negative) mg/dL Urine Blood (Negative) Urine Nitrite (Negative) Urine Bilirubin (Negative) Urine Urobilinogen (Normal) mg/dL Ur Leukocyte Esterase (Negative) Urine Microscopic RBC (0-3) per hpf Urine Microscopic WBC (0-3) per hpf Ur Squamous Epith Cells (None-Few) per lpf Urine Bacteria (None-Few) per hpf Hyaline Casts (None-Few) per lpf Urine Yeast Ur Culture Indicated? (NO) Nasal Screen MRSA (PCR) Negative (Negative) Stl C. cayetanensis PCR (Not detect) Stool Rotavirus A PCR (Not detect) Stl Adenov F 40/41 PCR (Not detect) Stool Astrovirus (PCR) (Not detect) Stool Campylobacter PCR (Not detect) Stl C. diff Tox B Gene (Negative) Stl C. diff Tox A/B PCR (Not detect) Stool Cryptosporidium PCR (Not detect) Stl Sh Tox Pr E STEC PCR (Not detect) Stool E coli O157 PCR (Not detect) Stl Enterotoxigenic E PCR (Not detect) Stool EPEC (PCR) (Not detect) Stool EAEC (PCR) (Not detect) Stl E. histolytica PCR (Not detect) Stool Giardia Lamblia PCR (Not detect) Stool Salmonella PCR (Not detect) Stool Sapovirus (PCR) (Not detect) Stl P. shigelloides PCR (Not detect) Stl Shigella/EIEC PCR (Not detect) St Y.enterocolitica PCR (Not detect) Stool Vibrio (PCR) (Not detect) Stl Vibrio cholerae PCR (Not detect) Stl Norovirus GI/GII PCR (Not detect) Stl GI Panel (PCR) Com Chlamy pneumoniae PCR Not Detected (Not Detect) Adenovirus (PCR) Not Detected (Not Detect) B. pertussis DNA (PCR) Not Detected (Not Detect) B.parapertussis DNA PCR Not Detected (Not Detect) Coronavirus OC43 (PCR) Not Detected (Not Detect) Coronavirus HKU1 (PCR) Not Detected (Not Detect) Coronavirus 229E (PCR) Not Detected (Not Detect) Coronavirus NL63 (PCR) Not Detected (Not Detect) Human Metapneumovir PCR Not Detected (Not Detect) Influenza A (H1) PCR Not Detected (Not Detect) Influ A (H1N1/09) PCR Not Detected (Not Detect) Influenza A (H3) PCR Not Detected (Not Detect) Influenza A Untype (PCR) Not Detected (Not Detect) Influenza Type B (PCR) Not Detected (Not Detect) Mycoplasma pneumon IgG 0.48 H (<=0.09) U/L Mycoplasma pneumon IgM 0.13 (<=0.76) U/L M.pneumoniae DNA (PCR) Not Detected (Not Detect) Parainfluenza 1 (PCR) Not Detected (Not Detect) Parainfluenza 2 (PCR) Not Detected (Not Detect) Parainfluenza 3 (PCR) Not Detected (Not Detect) Parainfluenza 4 (PCR) Not Detected (Not Detect) RSV (PCR) Not Detected (Not Detect) Entero/Rhino (PCR) Not Detected (Not Detect) 09/21/18 09/19/18 09/18/18 Range/Units 08:40 04:15 20:10 Urine Color Yellow (Yellow) Urine Clarity Clear (Clear) Urine pH 5.5 (5.0-8.0) pH Units Ur Specific Lynx 1.023 (1.010-1.025) Urine Protein Negative (Neg-Trace) mg/dL Urine Glucose (UA) Normal (Normal) mg/dL Urine Ketones Negative (Negative) mg/dL Urine Blood Trace H (Negative) Urine Nitrite Negative (Negative) Urine Bilirubin Negative (Negative) Urine Urobilinogen Normal (Normal) mg/dL Ur Leukocyte Esterase Small H (Negative) Urine Microscopic RBC 3-5 H (0-3) per hpf Urine Microscopic WBC 5-15 H (0-3) per hpf Ur Squamous Epith Cells Many H (None-Few) per lpf Urine Bacteria None Seen (None-Few) per hpf Hyaline Casts Few (None-Few) per lpf Urine Yeast Test Not Performed Ur Culture Indicated? NO. A (NO) Nasal Screen MRSA (PCR) (Negative) Stl C. cayetanensis PCR (Not detect) Stool Rotavirus A PCR (Not detect) Stl Adenov F 40/41 PCR (Not detect) Stool Astrovirus (PCR) (Not detect) Stool Campylobacter PCR (Not detect) Stl C. diff Tox B Gene Positive A (Negative) Stl C. diff Tox A/B PCR (Not detect) Stool Cryptosporidium PCR (Not detect) Stl Sh Tox Pr E STEC PCR (Not detect) Stool E coli O157 PCR (Not detect) Stl Enterotoxigenic E PCR (Not detect) Stool EPEC (PCR) (Not detect) Stool EAEC (PCR) (Not detect) Stl E. histolytica PCR (Not detect) Stool Giardia Lamblia PCR (Not detect) Stool Salmonella PCR (Not detect) Stool Sapovirus (PCR) (Not detect) Stl P. shigelloides PCR (Not detect) Stl Shigella/EIEC PCR (Not detect) St Y.enterocolitica PCR (Not detect) Stool Vibrio (PCR) (Not detect) Stl Vibrio cholerae PCR (Not detect) Stl Norovirus GI/GII PCR (Not detect) Stl GI Panel (PCR) Com Chlamy pneumoniae PCR (Not Detect) Adenovirus (PCR) (Not Detect) B. pertussis DNA (PCR) (Not Detect) B.parapertussis DNA PCR (Not Detect) Coronavirus OC43 (PCR) (Not Detect) Coronavirus HKU1 (PCR) (Not Detect) Coronavirus 229E (PCR) (Not Detect) Coronavirus NL63 (PCR) (Not Detect) Human Metapneumovir PCR (Not Detect) Influenza A (H1) PCR (Not Detect) Influ A (H1N1/09) PCR (Not Detect) Influenza A (H3) PCR (Not Detect) Influenza A Untype (PCR) (Not Detect) Influenza Type B (PCR) (Not Detect) Mycoplasma pneumon IgG 0.30 H (<=0.09) U/L Mycoplasma pneumon IgM 0.06 (<=0.76) U/L M.pneumoniae DNA (PCR) (Not Detect) Parainfluenza 1 (PCR) (Not Detect) Parainfluenza 2 (PCR) (Not Detect) Parainfluenza 3 (PCR) (Not Detect) Parainfluenza 4 (PCR) (Not Detect) RSV (PCR) (Not Detect) Entero/Rhino (PCR) (Not Detect) 03/26/18 Range/Units 20:10 Urine Color (Yellow) Urine Clarity (Clear) Urine pH (5.0-8.0) pH Units Ur Specific Lynx (1.010-1.025) Urine Protein (Neg-Trace) mg/dL Urine Glucose (UA) (Normal) mg/dL Urine Ketones (Negative) mg/dL Urine Blood (Negative) Urine Nitrite (Negative) Urine Bilirubin (Negative) Urine Urobilinogen (Normal) mg/dL Ur Leukocyte Esterase (Negative) Urine Microscopic RBC (0-3) per hpf Urine Microscopic WBC (0-3) per hpf Ur Squamous Epith Cells (None-Few) per lpf Urine Bacteria (None-Few) per hpf Hyaline Casts (None-Few) per lpf Urine Yeast Ur Culture Indicated? (NO) Nasal Screen MRSA (PCR) (Negative) Stl C. cayetanensis PCR Not detected (Not detect) Stool Rotavirus A PCR Not detected (Not detect) Stl Adenov F 40/41 PCR Not detected (Not detect) Stool Astrovirus (PCR) Not detected (Not detect) Stool Campylobacter PCR Not detected (Not detect) Stl C. diff Tox B Gene (Negative) Stl C. diff Tox A/B PCR See reflex test A (Not detect) Stool Cryptosporidium PCR Not detected (Not detect) Stl Sh Tox Pr E STEC PCR Not detected (Not detect) Stool E coli O157 PCR Not detected (Not detect) Stl Enterotoxigenic E PCR Not detected (Not detect) Stool EPEC (PCR) Not detected (Not detect) Stool EAEC (PCR) Not detected (Not detect) Stl E. histolytica PCR Not detected (Not detect) Stool Giardia Lamblia PCR Not detected (Not detect) Stool Salmonella PCR Not detected (Not detect) Stool Sapovirus (PCR) Not detected (Not detect) Stl P. shigelloides PCR Not detected (Not detect) Stl Shigella/EIEC PCR Not detected (Not detect) St Y.enterocolitica PCR Not detected (Not detect) Stool Vibrio (PCR) Not detected (Not detect) Stl Vibrio cholerae PCR Not detected (Not detect) Stl Norovirus GI/GII PCR Not detected (Not detect) Stl GI Panel (PCR) Com See below Chlamy pneumoniae PCR (Not Detect) Adenovirus (PCR) (Not Detect) B. pertussis DNA (PCR) (Not Detect) B.parapertussis DNA PCR (Not Detect) Coronavirus OC43 (PCR) (Not Detect) Coronavirus HKU1 (PCR) (Not Detect) Coronavirus 229E (PCR) (Not Detect) Coronavirus NL63 (PCR) (Not Detect) Human Metapneumovir PCR (Not Detect) Influenza A (H1) PCR (Not Detect) Influ A (H1N1/09) PCR (Not Detect) Influenza A (H3) PCR (Not Detect) Influenza A Untype (PCR) (Not Detect) Influenza Type B (PCR) (Not Detect) Mycoplasma pneumon IgG (<=0.09) U/L Mycoplasma pneumon IgM (<=0.76) U/L M.pneumoniae DNA (PCR) (Not Detect) Parainfluenza 1 (PCR) (Not Detect) Parainfluenza 2 (PCR) (Not Detect) Parainfluenza 3 (PCR) (Not Detect) Parainfluenza 4 (PCR) (Not Detect) RSV (PCR) (Not Detect) Entero/Rhino (PCR) (Not Detect) Exam - Constitutional Vitals: Temp Pulse Resp BP Pulse Ox 98.9 F 68 16 171/65 98 04/08/18 15:06 04/08/18 15:06 04/08/18 16:14 04/08/18 15:06 04/08/18 16:14 General appearance: average body habitus, cooperative, no acute distress - Head Head exam: Present: atraumatic, normal inspection, normocephalic - Eye Eye exam: Present: EOMI, normal appearance, PERRL Pupils: Present: normal accommodation - ENT ENT exam: Present: mucous membranes moist - Neck Neck exam: Present: normal inspection - Respiratory Respiratory exam: Present: CTAB. Absent: rales, respiratory distress, rhonchi, wheezes - Cardiovascular Cardiovascular exam: Present: RRR, +S1, +S2 - GI/Abdominal GI/Abdominal exam: Present: normal bowel sounds, soft, tenderness (Generalized) . Absent: distended Additional comments: Chandra catheter noted to be draining clear yellow urine. - Extremities Exam Extremities exam: Present: normal inspection. Absent: joint swelling, pedal edema, tenderness - Neurological Exam Neurological exam: Present: alert, oriented X3, no focal deficits - Psychiatric Psychiatric exam: Present: normal affect, normal mood - Skin Skin exam: Present: dry, intact, normal color, warm Consult Discharge Plan - Plan Referrals: Kathy Acosta DO [Resident] - - Attending Attestation I examined this patient and my medical decision-making was reviewed with the Resident Physician. I agree with the documented findings, disposition and treatment plan as described except to the extent set forth below.
[2018-04-08 18:04] LABS: Albumin 2.7 g/dL (3.5-5.7); Albumin/Globulin Ratio 0.7 (1.1-2.2); Bilirubin,Direct 0.1 mg/dL (0.0-0.2); Bilirubin,Indirect 0.2 mg/dL (0.0-1.2); Bilirubin,Total 0.3 mg/dL (0.3-1.0); Globulin 3.7 g/dL (2.4-3.5); Total Protein 6.4 g/dL (6.4-8.9)
[2018-04-08] MEDS: traZODone 50 MG TABLET PO SCH (20:18)
[2018-04-08] MEDS: Ondansetron 4 MG/2 ML VIAL IVP PRN (20:18)
--- NOTE | 2018-04-08 23:24 | Event Note ---
Date of Encounter: 04/08/18 Time of Encounter: 23:09 Alerted by patient's nurse CAMACHO Allan that patient was being prepared to go to CT for chest CT due to pneumonia MR being changed was found to have dark, bloody liquid stool. Patient positive for C. difficile. Nurse reports bloody stool is new for patient. Patient was seen by GI on 04/05 due to C. difficile. Protonix drip ordered. Timed H&H every 6 hour to begin now. New GI consult ordered but has not been confirmed. Dr. Lee saw patient on 04/05. A.M team to follow-up on GI consult d/t new presence of bloody stool. Pt. and labs to be monitored closely overnight.
[2018-04-08] MEDS: Pantoprazole 40 MG in 0.9 % Sodium Chloride Mini Bag 100 ML IVC SCH (23:39)
[2018-04-09 00:08] LABS: Hematocrit 28.9 % (35.3-44.9); Hemoglobin 8.3 g/dL (11.5-15.4)
[2018-04-09] MEDS: Ipratropium/Albuterol Neb 3 ML IH SCH ×6 (03:42→23:23)
[2018-04-09 04:47] LABS: Mean Platelet Volume 11.8 fL (9.4-12.4); Red Cell Distribution Width 21.2 % (11.5-14.5)
[2018-04-09] MEDS: Pantoprazole 40 MG in 0.9 % Sodium Chloride Mini Bag 100 ML IVC SCH ×4 (04:47→20:04)
[2018-04-09 04:48] LABS: Basophils % 0.2 %; Eosinophils % 0.1 %; Hematocrit 27.8 % (35.3-44.9); Hemoglobin 7.9 g/dL (11.5-15.4); Immature Granulocytes % 0.6 % (0-4); Lymphocytes # 3.3 K/mcL (0.6-4.6); Lymphocytes % 13.9 %; Mean Corpuscular HGB Conc 28.4 g/dL (31.6-35.5); Mean Corpuscular Hemoglobin 22.1 pg (28.0-33.3); Mean Corpuscular Volume 77.7 fL (83.0-100.0); Monocytes # 1.3 K/mcL (0.0-1.3); Monocytes % 5.5 %; Neutrophils # 18.7 K/mcL (1.6-8.9); Platelet Count 502 K/mcL (140-400); Red Blood Count 3.58 M/mcL (3.82-4.97); Segmented Neutrophils % 79.7 %
[2018-04-09 04:49] LABS: Basophils # 0.1 K/mcL (0.0-0.2)
[2018-04-09 05:05] LABS: Hypochromasia Present (Not Present)
[2018-04-09 05:06] LABS: BUN/Creatinine Ratio 33 (6-26); Blood Urea Nitrogen 20 mg/dL (8-23); Calcium 8.5 mg/dL (8.6-10.3); Carbon Dioxide 33 mEq/L (23-29); Chloride 106 mEq/L (98-107); Glucose 114 mg/dL (70-105); Osmolality,Calculated 307 (280-300); Potassium 3.3 mEq/L (3.5-5.1); Sodium 147 mEq/L (136-145); eGFR For Non-African Americans > 60 (> 60)
[2018-04-09] MEDS ORDERED: Aminoglycoside Consult 1 EACH MC ONE (07:21)
[2018-04-09] MEDS: Insulin LISPRO 300 UNITS/3 ML VIAL SQ SCH ×5 (07:39→20:50)
[2018-04-09] MEDS: Sucralfate 1 GM TABLET PO SCH ×3 (07:39→16:13)
[2018-04-09] MEDS: Piperacillin/Tazobactam 3.375 GM in 0.9 % Sodium Chloride Mini Bag 100 ML IVPB SCH ×2 (07:39→16:14)
[2018-04-09] MEDS: Aspirin 81 MG TAB.CHEW PO SCH (07:41)
[2018-04-09] MEDS: Lactobacillus 1 EACH CAP.SPRINK PO SCH ×2 (07:42→20:08)
[2018-04-09] MEDS: Vancomycin Oral Soln 125 MG/2.5 ML UDC PO SCH ×4 (07:42→20:10)
[2018-04-09] MEDS: Furosemide 40 MG TABLET PO SCH (07:42)
[2018-04-09] MEDS: Metoprolol 100 MG TABLET PO SCH ×2 (07:43→20:08)
[2018-04-09] MEDS: Magnesium Oxide 400 MG TABLET PO SCH (07:44)
[2018-04-09] MEDS: amLODIPine 5 MG TABLET PO SCH (07:44)
[2018-04-09] MEDS: Gabapentin 100 MG CAPSULE PO SCH ×3 (07:44→20:08)
[2018-04-09] MEDS: predniSONE 20 MG TABLET PO SCH (07:46)
[2018-04-09] MEDS: Lisinopril 20 MG TABLET PO SCH (07:46)
[2018-04-09] MEDS: Tiotropium 18 MCG inhalation IH SCH (08:31)
[2018-04-09] MEDS: Beclomethasone 80mcg MDI IH SCH ×2 (08:32→20:11)
[2018-04-09] MEDS: OXYCODONE Oral CONC 10 MG/0.5 ML ORAL.SYG SL PRN ×3 (09:32→20:33)
--- NOTE | 2018-04-09 10:03 | Internal Med Progress Note ---
<Lucero Salas - Last Filed: 04/09/18 17:07> Hospitalist Progress Note - Encounter Date of Encounter: 04/09/18 Time of Encounter: 08:00 - Subjective Interval History: Ms. Lauren was examined at bedside this morning. This morning she was uncomfortable and complaining of diffuse abdominal pain. Overnight she had episode of one bloody bowel movement prior to CT. She had a CT of the abdomen and pelvis last night which showed focal fat stranding and cutaneous thickening of right lower abdominal wall. She continued to have loose stools and were noted as bloody bowel movements, three different times. Her hemoglobin is 7.9 today and was 8.2 yesterday. Her vitals have remained stable although she had a low grade fever of 100.0 this morning. She She states her breathing has improved and she is able to expel out good amount of sputum. Her cough has resolved. She is complaining of feeling chilly. She is also nauseated with no emesis. She denies shortness of breath or chest pain. - Exam Vitals: Temp Pulse Resp BP Pulse Ox 100.0 F H 73 16 137/63 90 04/09/18 08:00 04/09/18 08:00 04/09/18 08:34 04/09/18 08:00 04/09/18 08:40 Exam: Constitutional: Alert, in no acute distress, on nasal canula HEENT: Normocephalic, atraumatic, moist mucus membrane Heart: Normal, regular rate and rhythm, no murmurs Lungs: lungs clear and equal bilaterally Abdomen: Soft, hypoactive bowel sounds, diffuse abdominal tenderness Extremities: No edema, no clubbing; Ulcer at dorsum of right foot. Skin: Skin warm and dry, no lesions, no rashes, no jaundice Psych: thought content congruent, appropriate affect Neurological Alert and oriented x 3, right upper and lower extremities paralysis due to previous CVA - Assessment and Plan (1) Abdominal pain Current Visit: Yes Status: Acute Assessment and Plan: Likely secondary to C Diff colitis. CT on 04/08 noted focal fat stranding of the abdominal wall. Abd CT on 03/26 showed mural thickness of the distal esophagus, pyloric antrum, and several loops of small bowel in the right lower quadrant/ pelvis. There is persistent gallstones but no cholecystitis. Patient denies hematemesis, hematochezia, melena. Her vitals overnight were stable. Gastroenterology wants to rule out primary biliary cirrhosis due to mildly elevated aminotranferase. EKTA and AMA pending. Plan: -Continue telemetry -Continue oral vancomycin 125 mg, day 13 -Continue zofran prn -Continue omeprazole 40 mg -GI consulted. Appreciate recommendations -Clear liquid diet (2) Hematochezia Current Visit: Yes Status: Acute Assessment and Plan: Had total of 4 episodes of bloody bowel movements since last night. It started prior to CT of the abdomen. Her vitals remained stable, blood pressure was 129/ [address] did not suggest any colonic findings. Her hemoglobin today is 7.9 and was 8.2 yesterday. GI believes it is likely due to c. diff. Plan: GI is following H&H Q8 7.9 --> to 8.3 Clear liquid diet Colonoscopy after c.diff resolves (3) C. difficile colitis Current Visit: Yes Status: Acute Assessment and Plan: Patient was having 5-6 watery stools per day. She had a positive C diff toxin PCR. Continues to have diffuse abdominal pain although CT abdomen and pelvis did not suggest toxic megacolon. GI noted the bloody bowel movement is secondary to c. diff. Plan: -GI consulted -5 bowel movements today -WBC 23.4, stable -Continue oral Vancomycin day 13 125mg -Continue probiotics -Continue to monitor CBC (4) Acute and chronic respiratory failure with hypoxia Current Visit: Yes Status: Acute Assessment and Plan: Likely 2/2 multifocal pneumonia and COPD exacerbation. She has history of COPD and likely had COPD exacerbation as she was requiring more oxygen. CT chest showed multifocal pneumonia. ECHO on 03/25/2018 showed EF 70% with mild dystolic dysfunction. Her respiratory effort is much improved and is on same oxygen as home. Plan: -Currently on 3L O2 nasal canula. Baseline is 3L O2 at home -Continue duoneb prn and O2 support -Continue attempting to wean down to baseline O2 use -Lasix 40mg IV -Zosyn day 10 -Pulmonology consulted: recommended oral 40 mg prednisone, QVAR, spiriva, scheduled duoneb (5) Pneumonia Current Visit: Yes Status: Resolved Assessment and Plan: CT chest on 04/03 showed multifocal PNA, greatest in the LLL Plan: -Infectious disease and pulmonology consulted -Swallow eval negative for aspiration -Received 10 days of zosyn--stopped 04/09 -Received 3 days of IV vancomycin--stopped 04/09 (6) CAD (coronary artery disease) Current Visit: Yes Status: Chronic Assessment and Plan: Prior history, CABG x 5. Continue ASA, statin, plavix. Patient denies chest pain this morning. Plan: Continue current rosuvastatin Continue telemetry Cardiology recommended outpatient stress test and follow up (7) HTN (hypertension) Current Visit: Yes Status: Chronic Assessment and Plan: History of chronic hypertension. Her current blood pressure 155/66. Plan: Continue home regimen Added hydralazine PRN (8) Hypokalemia Current Visit: Yes Status: Acute Assessment and Plan: Hypokalemia likely due to loose stool. Serum potassium this morning was 3.3. Plan: On a daily potassium replacement Replaced with potassium supplement Continue to monitor (9) Chest pain Current Visit: Yes Status: Resolved Assessment and Plan: Resolved. Presented for chest pain. Troponin max 0.23, decreased to 0.19. Cardiology consulted and believes this to be due to demand ischemia/ NSTEMI II due to UTI. EKG was normal sinus rhythm. Echo was normal EF: 70%. Plan: Continue ASA, statin, Plavix, metoprolol Cardiology signed off, stress test outpatient Pt has no chest pain now Consider an EKG and troponin if chest pain (10) COPD (chronic obstructive pulmonary disease) Current Visit: Yes Status: Acute Assessment and Plan: Suspected COPD exacerbation. White count remains elevated likely multifactorial- -c. diff and on prednisone. History of COPD, uses 3 liters of oxygen at home and mucinex BID, spiriva and duonebs. Her oxygen demand increased soon after admission requiring 10 liters at one point. Today she is on 3 liters and her cough has resolved. Plan: -Pulmonology consulted -Continue with duoneb Q4h prn -Continue to wean O2 supplementation--currently on 3L O2 via nasal canula -Continue prednisone -Continue with Qvar and spiriva (11) Cholelithiasis Current Visit: Yes Status: Ruled-out Assessment and Plan: CT of the abdomen did not show acute cholecystitis. Plan: GI is awaiting EKTA and mitochondrial antibody (12) Hypomagnesemia Current Visit: Yes Status: Acute Assessment and Plan: Replaced this morning. Plan: Continue to monitor (13) Chronic anemia Current Visit: Yes Status: Acute Assessment and Plan: Anemia of chronic disease or iron deficiency. Hemoglobin today was 7.9. Monitoring H&H Q8 Plan: Iron level < 10, continue po iron pills. (14) Diabetes type 2, controlled Current Visit: Yes Status: Acute Assessment and Plan: Holding home meds, glucose 114 Plan: Currently well controlled on LSSI. (15) Pulmonary nodule Current Visit: Yes Status: Acute Assessment and Plan: CT of the chest noted a small lobulated nodule on the right upper lung lobe posteriorly Plan: Need to be followed to resolution after pneumonia resolves outpatient DVT Prophylaxis: EPCDS - Time Spent with Patient Total time spent is greater than 50% in coordination of care (as documented) at patient's floor/unit and/or counseling patient: 25 - 35 minutes Plan of Care Discussed with: patient Internal Medicine: Result - Labs CBC & Chem 7: 04/09/18 12:18 04/09/18 04:00 Labs: Short CBC 04/08/18 04/09/18 Range/Units 23:50 04:00 WBC 23.4 H (4.3-11.1) K/mcL Hgb 8.3 L 7.9 L (11.5-15.4) g/dL Hct 28.9 L 27.8 L (35.3-44.9) % Plt Count 502 H (140-400) K/mcL Neutrophils # 18.7 H (1.6-8.9) K/mcL BMP 04/09/18 04:00 Sodium 147 H Potassium 3.3 L Chloride 106 Carbon Dioxide 33 H BUN 20 Creatinine 0.60 Glucose 114 H Calcium 8.5 L Liver Function 04/08/18 Range/Units 17:34 Total Bilirubin 0.3 (0.3-1.0) mg/dL Direct Bilirubin 0.1 (0.0-0.2) mg/dL AST 10 L (13-39) Units/L ALT 10 (7-52) Units/L Alkaline Phosphatase 214 H (34-104) Units/L Albumin 2.7 L (3.5-5.7) g/dL - ABG Interpretation ABG results: ABG ABG pH 7.42 pH Units (7.32-7.45) 03/28/18 20:10 ABG pCO2 43 mmHg (35-45) 03/28/18 20:10 ABG pO2 55 mmHg (85-104) L 03/28/18 20:10 ABG O2 Saturation 88 % (95-98) L 03/28/18 20:10 PT/INR, D-dimer PT 17.8 Seconds (9.4-12.1) H 04/02/18 06:17 - Impressions Impressions Chest CT 04/08/18 17:11 IMPRESSION: Decreasing consolidation within the left lower lobe, most compatible with resolving pneumonia. Decreasing reticulonodular opacities, presumably secondary to decreasing bronchiolitis. There is a small lobulated nodule seen in the right upper lung posteriorly, which is unchanged, and could still be inflammatory, but the inflammation/infection within the chest should be followed to resolution. Fluid-filled large bowel, compatible with the patient's history of diarrheal disease. There is fluid-filled dilation of small bowel, with fecalization of contents in some regions, which suggests possible ileus in the setting of gastroenteritis. Cholelithiasis. Focal fat stranding and cutaneous thickening involving the right lower abdominal wall. Correlate with any clinical evidence of cellulitis. D/ / Jatin Chavira MD / Jatin Chavira MD Interpreting Provider: Jatin Chavira MD Abdomen/Pelvis CT 04/08/18 17:12 IMPRESSION: Decreasing consolidation within the left lower lobe, most compatible with resolving pneumonia. Decreasing reticulonodular opacities, presumably secondary to decreasing bronchiolitis. There is a small lobulated nodule seen in the right upper lung posteriorly, which is unchanged, and could still be inflammatory, but the inflammation/infection within the chest should be followed to resolution. Fluid-filled large bowel, compatible with the patient's history of diarrheal disease. There is fluid-filled dilation of small bowel, with fecalization of contents in some regions, which suggests possible ileus in the setting of gastroenteritis. Cholelithiasis. Focal fat stranding and cutaneous thickening involving the right lower abdominal wall. Correlate with any clinical evidence of cellulitis. D/ / Jatin Chavira MD / Jatin Chavira MD Interpreting Provider: Jatin Chavira MD Consult Discharge Plan - Plan Referrals: Kathy Acosta DO [Resident] - <Ju Douglas - Last Filed: 04/09/18 17:54> Hospitalist Progress Note - Encounter Date of Encounter: 04/09/18 - Exam Vitals: Temp Pulse Resp BP Pulse Ox 98.6 F 80 16 155/66 91 04/09/18 14:36 04/09/18 14:36 04/09/18 16:46 04/09/18 14:36 04/09/18 16:46 - Assessment and Plan (1) HTN (hypertension) Current Visit: Yes Status: Chronic (2) CAD (coronary artery disease) Current Visit: Yes Status: Chronic (3) Hypokalemia Current Visit: Yes Status: Acute (4) Chest pain Current Visit: Yes Status: Resolved (5) Abdominal pain Current Visit: Yes Status: Acute (6) COPD (chronic obstructive pulmonary disease) Current Visit: Yes Status: Acute (7) Pneumonia Current Visit: Yes Status: Resolved (8) C. difficile colitis Current Visit: Yes Status: Acute (9) Cholelithiasis Current Visit: Yes Status: Ruled-out (10) Hypomagnesemia Current Visit: Yes Status: Acute (11) Chronic anemia Current Visit: Yes Status: Acute (12) Diabetes type 2, controlled Current Visit: Yes Status: Acute (13) Acute and chronic respiratory failure with hypoxia Current Visit: Yes Status: Acute (14) Hematochezia Current Visit: Yes Status: Acute (15) Pulmonary nodule Current Visit: Yes Status: Acute - Time Spent with Patient Total time spent is greater than 50% in coordination of care (as documented) at patient's floor/unit and/or counseling patient: Internal Medicine: Result - Labs CBC & Chem 7: 04/09/18 12:18 04/09/18 04:00 Labs: Short CBC 04/08/18 04/09/18 04/09/18 Range/Units 23:50 04:00 12:18 WBC 23.4 H (4.3-11.1) K/mcL Hgb 8.3 L 7.9 L 8.3 L (11.5-15.4) g/dL Hct 28.9 L 27.8 L 29.9 L (35.3-44.9) % Plt Count 502 H (140-400) K/mcL Neutrophils # 18.7 H (1.6-8.9) K/mcL BMP 04/09/18 04:00 Sodium 147 H Potassium 3.3 L Chloride 106 Carbon Dioxide 33 H BUN 20 Creatinine 0.60 Glucose 114 H Calcium 8.5 L Liver Function 04/08/18 Range/Units 17:34 Total Bilirubin 0.3 (0.3-1.0) mg/dL Direct Bilirubin 0.1 (0.0-0.2) mg/dL AST 10 L (13-39) Units/L ALT 10 (7-52) Units/L Alkaline Phosphatase 214 H (34-104) Units/L Albumin 2.7 L (3.5-5.7) g/dL - ABG Interpretation ABG results: ABG ABG pH 7.42 pH Units (7.32-7.45) 03/28/18 20:10 ABG pCO2 43 mmHg (35-45) 03/28/18 20:10 ABG pO2 55 mmHg (85-104) L 03/28/18 20:10 ABG O2 Saturation 88 % (95-98) L 03/28/18 20:10 PT/INR, D-dimer PT 17.8 Seconds (9.4-12.1) H 04/02/18 06:17 - Impressions Impressions Chest CT 04/08/18 17:11 IMPRESSION: Decreasing consolidation within the left lower lobe, most compatible with resolving pneumonia. Decreasing reticulonodular opacities, presumably secondary to decreasing bronchiolitis. There is a small lobulated nodule seen in the right upper lung posteriorly, which is unchanged, and could still be inflammatory, but the inflammation/infection within the chest should be followed to resolution. Fluid-filled large bowel, compatible with the patient's history of diarrheal disease. There is fluid-filled dilation of small bowel, with fecalization of contents in some regions, which suggests possible ileus in the setting of gastroenteritis. Cholelithiasis. Focal fat stranding and cutaneous thickening involving the right lower abdominal wall. Correlate with any clinical evidence of cellulitis. D/ / Jatin Chavira MD / Jatin Chavira MD Interpreting Provider: Jatin Chavira MD Abdomen/Pelvis CT 04/08/18 17:12 IMPRESSION: Decreasing consolidation within the left lower lobe, most compatible with resolving pneumonia. Decreasing reticulonodular opacities, presumably secondary to decreasing bronchiolitis. There is a small lobulated nodule seen in the right upper lung posteriorly, which is unchanged, and could still be inflammatory, but the inflammation/infection within the chest should be followed to resolution. Fluid-filled large bowel, compatible with the patient's history of diarrheal disease. There is fluid-filled dilation of small bowel, with fecalization of contents in some regions, which suggests possible ileus in the setting of gastroenteritis. Cholelithiasis. Focal fat stranding and cutaneous thickening involving the right lower abdominal wall. Correlate with any clinical evidence of cellulitis. D/ / Jatin Chavira MD / Jatin Chavira MD Interpreting Provider: Jatin Chavira MD - Attending Attestation as documented in 04/09/18 event note- attending attestation I examined this patient and my medical decision-making was reviewed with the Resident Physician Dr Salas. I agree with the documented findings, disposition and treatment plan as described in her progress note that is currently pending signature except to the extent set forth below/addl details below Ms Lauren was admitted with Cdiff and multifocal pna. Pt independently seen and examined. Awake, cont abd cramping pain, no nausea or emesis, Denies fevers, chills. No sob and cough improved. Bloody bms overnight, she is unsure if blood in bms this morning. no presyncope, sob, chest pain. gen- alert, awake,appears stated age eyes- pupils equal round , no conjunctival pallor cv- reg rate and rhythm, normal s1,s2, no murmurs appreciated, radial pulse 2+ and regular lungs- ctabl, no wheezing, rhonchi or crackles, normal resp effort abd- soft, diffusely tender, without guarding, non distended, + bs skin- no pallor or jaundice neuro- AAOx3 C Diff Colitis, with bloody bms- gi and id following, serial hgb monitoring, ct a/p withOUT toxic feliz colon, transfuse if hgb <7, cont oral vanc, PPI, as per ID will need prolonged course for 3 addl days Multifocal pna- improving on most recent chest CT, as per ID hold vanc IV and zosyn and monitor, incidental lung nodule on imaging RUL, fu outpt , pulm following, rvp + mycoplasma pneumo Elevated alk phos - gi following and ruling out primary biliary cirrhosis ,labs pending Hypokalemia- cont to monitor with diarrhea an replete prn Chest pain this admission with trop elevation, now resolved. Type II NSTEMI due to demand ischemia and cardiology followed, now signed off, fu outpt <Lucero Salas - Last Filed: 04/09/18 17:07> (1) Abdominal pain Qualifiers: Abdominal location: generalized Qualified Code(s): R10.84 - Generalized abdominal pain (5) Pneumonia Qualifiers: Pneumonia type: due to unspecified organism Laterality: bilateral Lung location: lower lobe of lung Qualified Code(s): J18.1 - Lobar pneumonia, unspecified organism (6) CAD (coronary artery disease) Qualifiers: Coronary Disease-Associated Artery/Lesion type: [place] artery [place] vs. transplanted heart: [place] heart Associated angina: without angina Qualified Code(s): I25.10 - Atherosclerotic heart disease of [place] coronary artery without angina pectoris (7) HTN (hypertension) Qualifiers: Hypertension type: essential hypertension Qualified Code(s): I10 - Essential (primary) hypertension (9) Chest pain Qualifiers: Chest pain type: chest pain due to myocardial ischemia Ischemic chest pain type: unstable angina pectoris Qualified Code(s): I20.0 - Unstable angina (10) COPD (chronic obstructive pulmonary disease) Qualifiers: COPD type: chronic bronchitis Chronic bronchitis type: mucopurulent Qualified Code(s): J41.1 - Mucopurulent chronic bronchitis (11) Cholelithiasis Qualifiers: Cholelithiasis location: gallbladder Cholecystitis presence: without cholecystitis Biliary obstruction: without biliary obstruction Qualified Code( s): K80.20 - Calculus of gallbladder without cholecystitis without obstruction (14) Diabetes type 2, controlled Qualifiers: Diabetes mellitus die developer insulin use: with die developer use Diabetes mellitus complication status: with hyperglycemia Qualified Code(s): E11.65 - Type 2 diabetes mellitus with hyperglycemia; 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 transplanted heart: [place] heart Associated angina: without angina Qualified Code(s): I25.10 - Atherosclerotic heart disease of [place] coronary artery without angina pectoris (4) Chest pain Qualifiers: Chest pain type: chest pain due to myocardial ischemia Ischemic chest pain type: unstable angina pectoris Qualified Code(s): I20.0 - Unstable angina (5) Abdominal pain Qualifiers: Abdominal location: generalized Qualified Code(s): R10.84 - Generalized abdominal pain (6) COPD (chronic obstructive pulmonary disease) Qualifiers: COPD type: chronic bronchitis Chronic bronchitis type: mucopurulent Qualified Code(s): J41.1 - Mucopurulent chronic bronchitis (7) Pneumonia Qualifiers: Pneumonia type: due to unspecified organism Laterality: bilateral Lung location: lower lobe of lung Qualified Code(s): J18.1 - Lobar pneumonia, unspecified organism (9) Cholelithiasis Qualifiers: Cholelithiasis location: gallbladder Cholecystitis presence: without cholecystitis Biliary obstruction: without biliary obstruction Qualified Code( s): K80.20 - Calculus of gallbladder without cholecystitis without obstruction (12) Diabetes type 2, controlled Qualifiers: Diabetes mellitus die developer insulin use: with senior care use Diabetes mellitus complication status: with hyperglycemia Qualified Code(s): E11.65 - Type 2 diabetes mellitus with hyperglycemia; 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
--- NOTE | 2018-04-09 10:54 | Gastroenterology Progress Note ---
Date of Encounter: 04/09/18 Time of Encounter: 10:25 - Assessment and plan (1) C. difficile colitis Current Visit: Yes Status: Acute Assessment and plan: Severe C diff colitis. Abdominal pain and cramping continues. Having 3-5 watery BMs daily, per patient report. Continue oral Vancomycin and probiotic. ID is following. (2) Rectal bleeding Current Visit: Yes Status: Acute Assessment and plan: Likely secondary to C diff colitis. Continue treatment of C diff. Consider colonoscopy once C diff resolved. (3) Abdominal pain Current Visit: Yes Status: Acute Assessment and plan: Diffuse abdominal pain likely secondary to C diff. However differential also includes primary biliary cirrhosis due to mildly elevated aminotransferase. EKTA and AMA pending. Qualifiers: Abdominal location: generalized Qualified Code(s): R10.84 - Generalized abdominal pain - Time Spent With Patient Total time spent is greater than 50% in coordination of care (as documented) at patient's floor/unit and/or counseling patient: - Subjective Interval history: Patient had bloody BM overnight. She continues to complain of abdominal pain and cramping. She reports having 3-5 watery BMs daily. - Constitutional Vitals: Temp Pulse Resp BP Pulse Ox 98.9 F 86 19 160/67 93 04/09/18 10:19 04/09/18 10:19 04/09/18 10:19 04/09/18 10:19 04/09/18 10:19 General appearance: Present: cooperative, A&O X 3, no acute distress, answers questions appropriately - Head Head exam: Present: atraumatic, normocephalic - Eye Eye exam: Present: normal appearance, sclera anicteric - ENT ENT exam: Present: mucous membranes moist - Neck Neck exam general surgery: Present: normal inspection, trachea midline - Respiratory Respiratory exam: Present: CTAB. Absent: rales, rhonchi - Cardiovascular Cardiovascular exam: Present: RRR, +S1, +S2 - GI/Abdominal GI/Abdominal exam: Present: soft, tenderness (diffuse), no peritoneal signs. Absent: distended, firm, guarding - Rectal Rectal exam: Present: deferred - Extremities Exam Extremities exam: Present: warm - Neurological Exam Neurological exam: Present: no focal deficits - Psychiatric Psychiatric exam: Present: normal affect, normal mood - Skin Skin exam: Present: dry, intact, normal color, warm Results - Labs CBC & Chem 7: 04/09/18 04:00 04/09/18 04:00 Labs: Last Result Calcium 8.5 mg/dL (8.6-10.3) L 04/09/18 04:00 Iron < 10 mcg/dL (50-170) L 03/29/18 05:53 % Saturation TNP 03/29/18 05:53 Transferrin 158 mg/dL (203-362) L 03/29/18 05:53 Ferritin 50 ng/mL (10-120) 03/29/18 05:53 Troponin I 0.19 ng/mL (< 0.04) H* 03/25/18 13:33 Entire Visit Hgb 7.9 g/dL (11.5-15.4) L 04/09/18 04:00 Hct 27.8 % (35.3-44.9) L 04/09/18 04:00 PT 17.8 Seconds (9.4-12.1) H 04/02/18 06:17 Ferritin 50 ng/mL (10-120) 03/29/18 05:53 Total Bilirubin 0.3 mg/dL (0.3-1.0) 04/08/18 17:34 AST 10 Units/L (13-39) L 04/08/18 17:34 ALT 10 Units/L (7-52) 04/08/18 17:34 Amylase 32 Units/L (29-103) 04/08/18 17:34 Lipase 26 Units/L (11-82) 04/08/18 17:34 - ABG ABG results: ABG ABG pH 7.42 pH Units (7.32-7.45) 03/28/18 20:10 ABG pCO2 43 mmHg (35-45) 03/28/18 20:10 ABG pO2 55 mmHg (85-104) L 03/28/18 20:10 ABG O2 Saturation 88 % (95-98) L 03/28/18 20:10 PT/INR, D-dimer PT 17.8 Seconds (9.4-12.1) H 04/02/18 06:17 - Impressions Impressions Chest CT 04/08/18 17:11 IMPRESSION: Decreasing consolidation within the left lower lobe, most compatible with resolving pneumonia. Decreasing reticulonodular opacities, presumably secondary to decreasing bronchiolitis. There is a small lobulated nodule seen in the right upper lung posteriorly, which is unchanged, and could still be inflammatory, but the inflammation/infection within the chest should be followed to resolution. Fluid-filled large bowel, compatible with the patient's history of diarrheal disease. There is fluid-filled dilation of small bowel, with fecalization of contents in some regions, which suggests possible ileus in the setting of gastroenteritis. Cholelithiasis. Focal fat stranding and cutaneous thickening involving the right lower abdominal wall. Correlate with any clinical evidence of cellulitis. D/ / Jatin Chavira MD / Jatin Chavira MD Interpreting Provider: Jatin Chavira MD Abdomen/Pelvis CT 04/08/18 17:12 IMPRESSION: Decreasing consolidation within the left lower lobe, most compatible with resolving pneumonia. Decreasing reticulonodular opacities, presumably secondary to decreasing bronchiolitis. There is a small lobulated nodule seen in the right upper lung posteriorly, which is unchanged, and could still be inflammatory, but the inflammation/infection within the chest should be followed to resolution. Fluid-filled large bowel, compatible with the patient's history of diarrheal disease. There is fluid-filled dilation of small bowel, with fecalization of contents in some regions, which suggests possible ileus in the setting of gastroenteritis. Cholelithiasis. Focal fat stranding and cutaneous thickening involving the right lower abdominal wall. Correlate with any clinical evidence of cellulitis. D/ / Jatin Chavira MD / Jatin Chavira MD Interpreting Provider: Jatin Chavira MD Consult Discharge Plan - Plan Referrals: Kathy Acosta DO [Resident] -
--- NOTE | 2018-04-09 11:13 | Infectious Disease Progress No ---
Date of Encounter: 04/09/18 Time of Encounter: 11:10 - Assessment and Plan (1) Sepsis Current Visit: No Status: Acute The patient had three SIRS criteria. Likely secondary to C. difficile and pneumonia. Improved clinically, but the patient continues to have abdominal pain and leukocytosis. Tachycardia has resolved. She has been afebrile. Blood cultures obtained 03/25/18 are negative 2 sets. Qualifiers: Sepsis type: sepsis due to unspecified organism Qualified Code(s): A41.9 - Sepsis, unspecified organism (2) Pneumonia Current Visit: Yes Status: Acute Location: Multifocal, greatest in the left lower lobe. Causative organism: Unclear. No evidence of aspiration noted on exam. Respiratory infectious panel was negative. Strep pneumococcal and legionella urinary antigens were negative. The patient has been able to provide us with 2 sputum cultures that are both negative. MRSA screen is negative. CT of the chest 04/08/18 showed improvement in the LLL PNA and decreased bronchiolitis. Has completed 12 days of IV Zosyn and 6 days of IV Vanc. Discontinue Vancomycin and Zosyn and observe. Qualifiers: Pneumonia type: due to unspecified organism Laterality: bilateral Lung location: lower lobe of lung Qualified Code(s): J18.1 - Lobar pneumonia, unspecified organism (3) C. difficile colitis Current Visit: Yes Status: Acute Severe. Clinically, the patient's stools are more formed, but she is still stooling several times per day. Repeat CT of the abdomen and pelvis showed findings consistent with ileus and gastroenteritis. Continue Vancomycin 125mg PO QID. (day 14) Duration of treatment depends on the clinical picture. We will likely need to extend the duration of treatment since the patient will need antibiotics to complete course of treatment for PNA. Recommend an additional 3 days of PO Vancomycin. Continue C. diff precautions per protocol. (4) Abdominal pain Current Visit: Yes Status: Acute Secondary to C diff colitis. Concern for other etiology enlight of the CT findings including ileus/enteritis/ esophagitis etc. GI consulted. Appreciate recommendations. LFTs mildly elevated. Lipase and amylase within normal limits.--> normal. CT abdomen and pelvis on 04/03/2018: Cholelithiasis, small amount of gas within the bladder. Decreased small bowel distention with small bowel wall thickening in the left upper quadrant; no toxic megacolon. Repeat CT of the abdomen and pelvis showed findings consistent with ileus and gastroenteritis. She also had some bloody stools overnight. GI re-consulted. Pain management per the primary team. Qualifiers: Abdominal location: generalized Qualified Code(s): R10.84 - Generalized abdominal pain (5) Ileus Current Visit: Yes Status: Deleted GI re-consulted. Await recommendations. (6) UTI (urinary tract infection) Current Visit: No Status: Ruled-out Urine culture was negative. Qualifiers: Urinary tract infection type: catheter-associated UTI Indwelling urinary catheter type: indwelling urethral catheter Encounter type: initial encounter Qualified Code(s): T83.511A - Infection and inflammatory reaction due to indwelling urethral catheter, initial encounter; N39.0 - Urinary tract infection , site not specified (7) Rectal bleeding Current Visit: Yes Status: Acute Patient started having bloody stools overnight. Hgb down to 7.9 this morning. GI re-consulted. Await recommendations. Management and transfusion parameters per the primary team. - Subjective Interval history: Patient seen and examined. No acute events noted overnight. Patient states overall she feels better, but continues to have diffuse abdominal pain. Denies any fevers or chills or rigors. Denies chest pain, shortness of breath, or cough. Denies nausea, vomiting, diarrhea, or constipation. Denies any oral thrush or new skin lesions. She denies any urinary complaints or appetite changes. She states she is not eating much. Reports several stools yesterday, but no longer watery and are soft/formed. Her white blood cell count remains elevated, but improved today. Started having bloody stool overnight. GI re- consulted. Patient states rubio catheter came out this morning and is supposed to be replaced since she is unable to void on her own. Infect Dis PN-Objective Data - Labs CBC & Chem 7: 04/11/18 10:45 04/10/18 06:00 Labs: Laboratory Results - last 24 hr 04/06/18 04/08/18 04/08/18 20:42 17:34 23:50 WBC RBC Hgb 8.3 L Hct 28.9 L MCV MCH MCHC RDW Plt Count MPV Immature Gran % Seg Neutrophils % Lymphocytes % Monocytes % Eosinophils % Basophils % Neutrophils # Lymphocytes # Monocytes # Eosinophils # Basophils # Platelet Estimate Hypochromasia Sodium Potassium Chloride Carbon Dioxide BUN Creatinine Est GFR ( Amer) Est GFR (Non-Af Amer) BUN/Creatinine Ratio Glucose POC Glucose 204 H Calculated Osmolality Calcium Magnesium Total Bilirubin 0.3 Direct Bilirubin 0.1 Indirect Bilirubin 0.2 AST 10 L ALT 10 Alkaline Phosphatase 214 H Serum Total Protein 6.4 Albumin 2.7 L Globulin 3.7 H Albumin/Globulin Ratio 0.7 L Amylase 32 Lipase 26 Random Vancomycin 04/09/18 04/09/18 04/09/18 04:00 04:00 04:00 WBC 23.4 H RBC 3.58 L Hgb 7.9 L Hct 27.8 L MCV 77.7 L MCH 22.1 L MCHC 28.4 L RDW 21.2 H Plt Count 502 H MPV 11.8 Immature Gran % 0.6 Seg Neutrophils % 79.7 Lymphocytes % 13.9 Monocytes % 5.5 Eosinophils % 0.1 Basophils % 0.2 Neutrophils # 18.7 H Lymphocytes # 3.3 Monocytes # 1.3 Eosinophils # 0.0 Basophils # 0.1 Platelet Estimate Slight increase H Hypochromasia Present A Sodium 147 H Potassium 3.3 L Chloride 106 Carbon Dioxide 33 H BUN 20 Creatinine 0.60 Est GFR ( Amer) > 60 Est GFR (Non-Af Amer) > 60 BUN/Creatinine Ratio 33 H Glucose 114 H POC Glucose Calculated Osmolality 307 H Calcium 8.5 L Magnesium 1.6 Total Bilirubin Direct Bilirubin Indirect Bilirubin AST ALT Alkaline Phosphatase Serum Total Protein Albumin Globulin Albumin/Globulin Ratio Amylase Lipase Random Vancomycin 04/09/18 10:01 WBC RBC Hgb Hct MCV MCH MCHC RDW Plt Count MPV Immature Gran % Seg Neutrophils % Lymphocytes % Monocytes % Eosinophils % Basophils % Neutrophils # Lymphocytes # Monocytes # Eosinophils # Basophils # Platelet Estimate Hypochromasia Sodium Potassium Chloride Carbon Dioxide BUN Creatinine Est GFR ( Amer) Est GFR (Non-Af Amer) BUN/Creatinine Ratio Glucose POC Glucose Calculated Osmolality Calcium Magnesium Total Bilirubin Direct Bilirubin Indirect Bilirubin AST ALT Alkaline Phosphatase Serum Total Protein Albumin Globulin Albumin/Globulin Ratio Amylase Lipase Random Vancomycin 10 Cultures: Cultures 04/05/18 13:38 Sputum Culture - Final Sputum 04/05/18 16:38 Sputum Culture - Final Sputum 03/27/18 04:15 Legionella Antigen - Final Urine,[place] Streptococcus pneumoniae Antigen (M - Final Serology 04/05/18 04/05/18 04/05/18 Range/Units 12:12 09:20 09:20 Urine Color (Yellow) Urine Clarity (Clear) Urine pH (5.0-8.0) pH Units Ur Specific Orick (1.010-1.025) Urine Protein (Neg-Trace) mg/dL Urine Glucose (UA) (Normal) mg/dL Urine Ketones (Negative) mg/dL Urine Blood (Negative) Urine Nitrite (Negative) Urine Bilirubin (Negative) Urine Urobilinogen (Normal) mg/dL Ur Leukocyte Esterase (Negative) Urine Microscopic RBC (0-3) per hpf Urine Microscopic WBC (0-3) per hpf Ur Squamous Epith Cells (None-Few) per lpf Urine Bacteria (None-Few) per hpf Hyaline Casts (None-Few) per lpf Urine Yeast Ur Culture Indicated? (NO) Nasal Screen MRSA (PCR) Negative (Negative) Stl C. cayetanensis PCR (Not detect) Stool Rotavirus A PCR (Not detect) Stl Adenov F 40/41 PCR (Not detect) Stool Astrovirus (PCR) (Not detect) Stool Campylobacter PCR (Not detect) Stl C. diff Tox B Gene (Negative) Stl C. diff Tox A/B PCR (Not detect) Stool Cryptosporidium PCR (Not detect) Stl Sh Tox Pr E STEC PCR (Not detect) Stool E coli O157 PCR (Not detect) Stl Enterotoxigenic E PCR (Not detect) Stool EPEC (PCR) (Not detect) Stool EAEC (PCR) (Not detect) Stl E. histolytica PCR (Not detect) Stool Giardia Lamblia PCR (Not detect) Stool Salmonella PCR (Not detect) Stool Sapovirus (PCR) (Not detect) Stl P. shigelloides PCR (Not detect) Stl Shigella/EIEC PCR (Not detect) St Y.enterocolitica PCR (Not detect) Stool Vibrio (PCR) (Not detect) Stl Vibrio cholerae PCR (Not detect) Stl Norovirus GI/GII PCR (Not detect) Stl GI Panel (PCR) Com Chlamy pneumoniae PCR Not Detected (Not Detect) Adenovirus (PCR) Not Detected (Not Detect) B. pertussis DNA (PCR) Not Detected (Not Detect) B.parapertussis DNA PCR Not Detected (Not Detect) Coronavirus OC43 (PCR) Not Detected (Not Detect) Coronavirus HKU1 (PCR) Not Detected (Not Detect) Coronavirus 229E (PCR) Not Detected (Not Detect) Coronavirus NL63 (PCR) Not Detected (Not Detect) Human Metapneumovir PCR Not Detected (Not Detect) Influenza A (H1) PCR Not Detected (Not Detect) Influ A (H1N1/09) PCR Not Detected (Not Detect) Influenza A (H3) PCR Not Detected (Not Detect) Influenza A Untype (PCR) Not Detected (Not Detect) Influenza Type B (PCR) Not Detected (Not Detect) Mycoplasma pneumon IgG 0.48 H (<=0.09) U/L Mycoplasma pneumon IgM 0.13 (<=0.76) U/L M.pneumoniae DNA (PCR) Not Detected (Not Detect) Parainfluenza 1 (PCR) Not Detected (Not Detect) Parainfluenza 2 (PCR) Not Detected (Not Detect) Parainfluenza 3 (PCR) Not Detected (Not Detect) Parainfluenza 4 (PCR) Not Detected (Not Detect) RSV (PCR) Not Detected (Not Detect) Entero/Rhino (PCR) Not Detected (Not Detect) 03/29/18 03/27/18 03/26/18 Range/Units 08:40 04:15 20:10 Urine Color Yellow (Yellow) Urine Clarity Clear (Clear) Urine pH 5.5 (5.0-8.0) pH Units Ur Specific Orick 1.023 (1.010-1.025) Urine Protein Negative (Neg-Trace) mg/dL Urine Glucose (UA) Normal (Normal) mg/dL Urine Ketones Negative (Negative) mg/dL Urine Blood Trace H (Negative) Urine Nitrite Negative (Negative) Urine Bilirubin Negative (Negative) Urine Urobilinogen Normal (Normal) mg/dL Ur Leukocyte Esterase Small H (Negative) Urine Microscopic RBC 3-5 H (0-3) per hpf Urine Microscopic WBC 5-15 H (0-3) per hpf Ur Squamous Epith Cells Many H (None-Few) per lpf Urine Bacteria None Seen (None-Few) per hpf Hyaline Casts Few (None-Few) per lpf Urine Yeast Test Not Performed Ur Culture Indicated? NO. A (NO) Nasal Screen MRSA (PCR) (Negative) Stl C. cayetanensis PCR (Not detect) Stool Rotavirus A PCR (Not detect) Stl Adenov F 40/41 PCR (Not detect) Stool Astrovirus (PCR) (Not detect) Stool Campylobacter PCR (Not detect) Stl C. diff Tox B Gene Positive A (Negative) Stl C. diff Tox A/B PCR (Not detect) Stool Cryptosporidium PCR (Not detect) Stl Sh Tox Pr E STEC PCR (Not detect) Stool E coli O157 PCR (Not detect) Stl Enterotoxigenic E PCR (Not detect) Stool EPEC (PCR) (Not detect) Stool EAEC (PCR) (Not detect) Stl E. histolytica PCR (Not detect) Stool Giardia Lamblia PCR (Not detect) Stool Salmonella PCR (Not detect) Stool Sapovirus (PCR) (Not detect) Stl P. shigelloides PCR (Not detect) Stl Shigella/EIEC PCR (Not detect) St Y.enterocolitica PCR (Not detect) Stool Vibrio (PCR) (Not detect) Stl Vibrio cholerae PCR (Not detect) Stl Norovirus GI/GII PCR (Not detect) Stl GI Panel (PCR) Com Chlamy pneumoniae PCR (Not Detect) Adenovirus (PCR) (Not Detect) B. pertussis DNA (PCR) (Not Detect) B.parapertussis DNA PCR (Not Detect) Coronavirus OC43 (PCR) (Not Detect) Coronavirus HKU1 (PCR) (Not Detect) Coronavirus 229E (PCR) (Not Detect) Coronavirus NL63 (PCR) (Not Detect) Human Metapneumovir PCR (Not Detect) Influenza A (H1) PCR (Not Detect) Influ A (H1N1/09) PCR (Not Detect) Influenza A (H3) PCR (Not Detect) Influenza A Untype (PCR) (Not Detect) Influenza Type B (PCR) (Not Detect) Mycoplasma pneumon IgG 0.30 H (<=0.09) U/L Mycoplasma pneumon IgM 0.06 (<=0.76) U/L M.pneumoniae DNA (PCR) (Not Detect) Parainfluenza 1 (PCR) (Not Detect) Parainfluenza 2 (PCR) (Not Detect) Parainfluenza 3 (PCR) (Not Detect) Parainfluenza 4 (PCR) (Not Detect) RSV (PCR) (Not Detect) Entero/Rhino (PCR) (Not Detect) 03/26/18 Range/Units 20:10 Urine Color (Yellow) Urine Clarity (Clear) Urine pH (5.0-8.0) pH Units Ur Specific Orick (1.010-1.025) Urine Protein (Neg-Trace) mg/dL Urine Glucose (UA) (Normal) mg/dL Urine Ketones (Negative) mg/dL Urine Blood (Negative) Urine Nitrite (Negative) Urine Bilirubin (Negative) Urine Urobilinogen (Normal) mg/dL Ur Leukocyte Esterase (Negative) Urine Microscopic RBC (0-3) per hpf Urine Microscopic WBC (0-3) per hpf Ur Squamous Epith Cells (None-Few) per lpf Urine Bacteria (None-Few) per hpf Hyaline Casts (None-Few) per lpf Urine Yeast Ur Culture Indicated? (NO) Nasal Screen MRSA (PCR) (Negative) Stl C. cayetanensis PCR Not detected (Not detect) Stool Rotavirus A PCR Not detected (Not detect) Stl Adenov F 40/41 PCR Not detected (Not detect) Stool Astrovirus (PCR) Not detected (Not detect) Stool Campylobacter PCR Not detected (Not detect) Stl C. diff Tox B Gene (Negative) Stl C. diff Tox A/B PCR See reflex test A (Not detect) Stool Cryptosporidium PCR Not detected (Not detect) Stl Sh Tox Pr E STEC PCR Not detected (Not detect) Stool E coli O157 PCR Not detected (Not detect) Stl Enterotoxigenic E PCR Not detected (Not detect) Stool EPEC (PCR) Not detected (Not detect) Stool EAEC (PCR) Not detected (Not detect) Stl E. histolytica PCR Not detected (Not detect) Stool Giardia Lamblia PCR Not detected (Not detect) Stool Salmonella PCR Not detected (Not detect) Stool Sapovirus (PCR) Not detected (Not detect) Stl P. shigelloides PCR Not detected (Not detect) Stl Shigella/EIEC PCR Not detected (Not detect) St Y.enterocolitica PCR Not detected (Not detect) Stool Vibrio (PCR) Not detected (Not detect) Stl Vibrio cholerae PCR Not detected (Not detect) Stl Norovirus GI/GII PCR Not detected (Not detect) Stl GI Panel (PCR) Com See below Chlamy pneumoniae PCR (Not Detect) Adenovirus (PCR) (Not Detect) B. pertussis DNA (PCR) (Not Detect) B.parapertussis DNA PCR (Not Detect) Coronavirus OC43 (PCR) (Not Detect) Coronavirus HKU1 (PCR) (Not Detect) Coronavirus 229E (PCR) (Not Detect) Coronavirus NL63 (PCR) (Not Detect) Human Metapneumovir PCR (Not Detect) Influenza A (H1) PCR (Not Detect) Influ A (H1N1/09) PCR (Not Detect) Influenza A (H3) PCR (Not Detect) Influenza A Untype (PCR) (Not Detect) Influenza Type B (PCR) (Not Detect) Mycoplasma pneumon IgG (<=0.09) U/L Mycoplasma pneumon IgM (<=0.76) U/L M.pneumoniae DNA (PCR) (Not Detect) Parainfluenza 1 (PCR) (Not Detect) Parainfluenza 2 (PCR) (Not Detect) Parainfluenza 3 (PCR) (Not Detect) Parainfluenza 4 (PCR) (Not Detect) RSV (PCR) (Not Detect) Entero/Rhino (PCR) (Not Detect) - Impressions Impressions Chest CT 04/08/18 17:11 IMPRESSION: Decreasing consolidation within the left lower lobe, most compatible with resolving pneumonia. Decreasing reticulonodular opacities, presumably secondary to decreasing bronchiolitis. There is a small lobulated nodule seen in the right upper lung posteriorly, which is unchanged, and could still be inflammatory, but the inflammation/infection within the chest should be followed to resolution. Fluid-filled large bowel, compatible with the patient's history of diarrheal disease. There is fluid-filled dilation of small bowel, with fecalization of contents in some regions, which suggests possible ileus in the setting of gastroenteritis. Cholelithiasis. Focal fat stranding and cutaneous thickening involving the right lower abdominal wall. Correlate with any clinical evidence of cellulitis. D/ / Jatin Chavira MD / Jatin Chavira MD Interpreting Provider: Jatin Chavira MD Abdomen/Pelvis CT 04/08/18 17:12 IMPRESSION: Decreasing consolidation within the left lower lobe, most compatible with resolving pneumonia. Decreasing reticulonodular opacities, presumably secondary to decreasing bronchiolitis. There is a small lobulated nodule seen in the right upper lung posteriorly, which is unchanged, and could still be inflammatory, but the inflammation/infection within the chest should be followed to resolution. Fluid-filled large bowel, compatible with the patient's history of diarrheal disease. There is fluid-filled dilation of small bowel, with fecalization of contents in some regions, which suggests possible ileus in the setting of gastroenteritis. Cholelithiasis. Focal fat stranding and cutaneous thickening involving the right lower abdominal wall. Correlate with any clinical evidence of cellulitis. D/ / Jatin Chavira MD / Jatin Chavira MD Interpreting Provider: Jatin Chavira MD Exam - Constitutional Vitals: Temp Pulse Resp BP Pulse Ox 98.9 F 86 19 160/67 93 04/09/18 10:19 04/09/18 10:19 04/09/18 10:19 04/09/18 10:19 04/09/18 10:19 General appearance: average body habitus, cooperative, no acute distress - Head Head exam: Present: atraumatic, normal inspection, normocephalic - Eye Eye exam: Present: EOMI, normal appearance, PERRL Pupils: Present: normal accommodation - ENT ENT exam: Present: mucous membranes moist - Neck Neck exam: Present: normal inspection - Respiratory Respiratory exam: Present: CTAB. Absent: rales, respiratory distress, rhonchi, wheezes - Cardiovascular Cardiovascular exam: Present: RRR, +S1, +S2 - GI/Abdominal GI/Abdominal exam: Present: normal bowel sounds, soft, tenderness (generalized) . Absent: distended - Extremities Exam Extremities exam: Present: normal inspection. Absent: joint swelling, pedal edema, tenderness - Neurological Exam Neurological exam: Present: alert, oriented X3. Absent: no focal deficits ( Paralysis noted to the RLE with diminished movement/sensation to the RUE.) - Psychiatric Psychiatric exam: Present: normal affect, normal mood - Skin Skin exam: Present: dry, intact, normal color, warm Consult Discharge Plan - Plan Referrals: Kathy Acosta DO [Resident] - - Attending Attestation I examined this patient and my medical decision-making was reviewed with the Resident Physician. I agree with the documented findings, disposition and treatment plan as described except to the extent set forth below.
[2018-04-09 12:27] LABS: Hematocrit 29.9 % (35.3-44.9); Hemoglobin 8.3 g/dL (11.5-15.4)
[2018-04-09] MEDS: Ringers Solution, Lactated 1,000 ML IVC SCH (12:28)
--- NOTE | 2018-04-09 17:36 | Event Note ---
Date of Encounter: 04/09/18 Time of Encounter: 09:30 I examined this patient and my medical decision-making was reviewed with the Resident Physician Dr Salas. I agree with the documented findings, disposition and treatment plan as described in her progress note that is currently pending signature except to the extent set forth below/addl details below Ms Lauren was admitted with Cdiff and multifocal pna. Pt independently seen and examined. Awake, cont abd cramping pain, no nausea or emesis, Denies fevers, chills. No sob and cough improved. Bloody bms overnight, she is unsure if blood in bms this morning. no presyncope, sob, chest pain. gen- alert, awake,appears stated age eyes- pupils equal round , no conjunctival pallor cv- reg rate and rhythm, normal s1,s2, no murmurs appreciated, radial pulse 2+ and regular lungs- ctabl, no wheezing, rhonchi or crackles, normal resp effort abd- soft, diffusely tender, without guarding, non distended, + bs skin- no pallor or jaundice neuro- AAOx3 C Diff Colitis, with bloody bms- gi and id following, serial hgb monitoring, ct a/p withOUT toxic feliz colon, transfuse if hgb <7, cont oral vanc, PPI, as per ID will need prolonged course for 3 addl days Multifocal pna- improving on most recent chest CT, as per ID hold vanc IV and zosyn and monitor, incidental lung nodule on imaging RUL, fu outpt , pulm following, rvp + mycoplasma pneumo Elevated alk phos - gi following and ruling out primary biliary cirrhosis ,labs pending Hypokalemia- cont to monitor with diarrhea an replete prn Chest pain this admission with trop elevation, now resolved. Type II NSTEMI due to demand ischemia and cardiology followed, now signed off, fu outpt
[2018-04-09] MEDS: traZODone 50 MG TABLET PO SCH (20:07)
[2018-04-09 23:23] LABS: Hematocrit 27.9 % (35.3-44.9); Hemoglobin 7.9 g/dL (11.5-15.4)
[2018-04-10] MEDS: Pantoprazole 40 MG in 0.9 % Sodium Chloride Mini Bag 100 ML IVC SCH ×3 (01:50→11:34)
[2018-04-10] MEDS: OXYCODONE Oral CONC 10 MG/0.5 ML ORAL.SYG SL PRN ×3 (02:26→18:25)
[2018-04-10] MEDS: Ringers Solution, Lactated 1,000 ML IVC SCH (02:30)
[2018-04-10] MEDS: Ipratropium/Albuterol Neb 3 ML IH SCH ×6 (03:39→23:51)
[2018-04-10 06:30] LABS: Basophils % 0.1 %
[2018-04-10 06:32] LABS: Hematocrit 25.7 % (35.3-44.9); Hemoglobin 7.3 g/dL (11.5-15.4); Immature Granulocytes % 1.1 % (0-4); Lymphocytes % 11.9 %; Mean Corpuscular HGB Conc 28.4 g/dL (31.6-35.5); Mean Corpuscular Hemoglobin 22.5 pg (28.0-33.3); Mean Corpuscular Volume 79.1 fL (83.0-100.0); Mean Platelet Volume 12.4 fL (9.4-12.4); Monocytes # 1.4 K/mcL (0.0-1.3); Monocytes % 5.6 %; Neutrophils # 20.8 K/mcL (1.6-8.9); Platelet Count 546 K/mcL (140-400); Red Blood Count 3.25 M/mcL (3.82-4.97); Red Cell Distribution Width 21.6 % (11.5-14.5); Segmented Neutrophils % 81.3 %
[2018-04-10 06:37] LABS: Lymphocytes # 3.1 K/mcL (0.6-4.6)
[2018-04-10 06:57] LABS: Anisocytosis 2+ (Not Present); Hypochromasia Present (Not Present); Macrocytosis Present (Not Present); Microcytosis Present (Not Present); Platelet Estimate Increased (Normal); Poikilocytosis 1+ (Not Present); Target Cells 1+ (Not Present)
[2018-04-10 07:09] LABS: BUN/Creatinine Ratio 28 (6-26); Blood Urea Nitrogen 16 mg/dL (8-23); Calcium 8.8 mg/dL (8.6-10.3); Carbon Dioxide 35 mEq/L (23-29); Chloride 108 mEq/L (98-107); Glucose 113 mg/dL (70-105); Magnesium 1.7 mg/dL (1.6-2.6); Osmolality,Calculated 306 (280-300); Potassium 4.6 mEq/L (3.5-5.1); Sodium 147 mEq/L (136-145); eGFR For Non-African Americans > 60 (> 60)
[2018-04-10] MEDS: Beclomethasone 80mcg MDI IH SCH ×2 (07:35→20:09)
[2018-04-10] MEDS: Tiotropium 18 MCG inhalation IH SCH (07:36)
[2018-04-10] MEDS: Insulin LISPRO 300 UNITS/3 ML VIAL SQ SCH ×3 (08:00→18:21)
[2018-04-10 09:51] LABS: ANA IgG by ELISA DETECTED (None Detected)
[2018-04-10] MEDS: amLODIPine 5 MG TABLET PO SCH (09:51)
[2018-04-10] MEDS: Gabapentin 100 MG CAPSULE PO SCH ×3 (09:51→23:26)
[2018-04-10] MEDS: Aspirin 81 MG TAB.CHEW PO SCH (09:51)
[2018-04-10] MEDS: predniSONE 20 MG TABLET PO SCH (09:51)
[2018-04-10] MEDS: Lactobacillus 1 EACH CAP.SPRINK PO SCH ×2 (09:51→23:25)
[2018-04-10] MEDS: Metoprolol 100 MG TABLET PO SCH ×2 (09:52→23:26)
[2018-04-10] MEDS: Magnesium Oxide 400 MG TABLET PO SCH (09:52)
[2018-04-10] MEDS: Furosemide 40 MG TABLET PO SCH (09:52)
[2018-04-10] MEDS: Sucralfate 1 GM TABLET PO SCH ×3 (09:52→15:35)
[2018-04-10] MEDS: Lisinopril 20 MG TABLET PO SCH (09:52)
[2018-04-10] MEDS: Vancomycin Oral Soln 125 MG/2.5 ML UDC PO SCH ×4 (09:53→23:28)
--- NOTE | 2018-04-10 10:48 | Internal Med Progress Note ---
<Lucero Salas - Last Filed: 04/10/18 10:24> Hospitalist Progress Note - Encounter Date of Encounter: 04/10/18 Time of Encounter: 06:45 - Subjective Interval History: Ms. Lauren was examined at bedside this morning. This morning she is comfortable in bed. Her vitals overnight remained stable. Her hemogloobin is 7.3 and was 7.9 today. Overnight she had no episodes of bloody bowel movements. She continues to have diffuse abdominal pain but states that today is much better than her past abdominal pain. She She states her breathing has improved and she is able to expel out good amount of sputum. Today she has a cough. She is still complaining of feeling cold. Overnight she ate dinner but stated she continues to not have great diet. She denies shortness of breath or chest pain. - Exam Vitals: Temp Pulse Resp BP Pulse Ox 97.8 F 79 15 192/66 91 04/10/18 09:58 04/10/18 09:58 04/10/18 09:58 04/10/18 09:58 04/10/18 09:58 Exam: Constitutional: Alert, in no acute distress, on nasal canula HEENT: Normocephalic, atraumatic, moist mucus membrane Heart: Normal, regular rate and rhythm, no murmurs Lungs: lungs clear and equal bilaterally Abdomen: Soft, hypoactive bowel sounds, mild abdominal tenderness Extremities: No edema, no clubbing; Ulcer at dorsum of right foot. Skin: Skin warm and dry, no lesions, no rashes, no jaundice Psych: thought content congruent, appropriate affect Neurological Alert and oriented x 3, right upper and lower extremities paralysis due to previous CVA - Assessment and Plan (1) Abdominal pain Current Visit: Yes Status: Acute Assessment and Plan: Likely secondary to C Diff colitis. The pain is improving. Her vitals overnight were stable. She had 5 episodes of bloody bowel movements yesterday and today has had one loose bowel movement, no blood noted. CT on 04/08 noted focal fat stranding of the abdominal wall. Abd CT on 03/26 showed mural thickness of the distal esophagus, pyloric antrum, and several loops of small bowel in the right lower quadrant/pelvis. There is persistent gallstones but no cholecystitis. Patient denies hematemesis, hematochezia, melena. Gastroenterology wants to rule out primary biliary cirrhosis due to mildly elevated aminotranferase. EKTA and AMA pending. Plan: -Continue telemetry -Continue oral vancomycin 125 mg, day 14 -Continue zofran prn -Continue omeprazole 40 mg -GI consulted. Appreciate further recommendations -Clear liquid diet (2) Hematochezia Current Visit: Yes Status: Acute Assessment and Plan: Resolved. Had total of 5 episodes of bloody bowel movements since last night. Her vitals have remained stable, blood pressure was 129/[address] did not suggest any colonic findings. Her hemoglobin today is 7.9 and was 8.2 yesterday. GI believes it is likely due to c. diff. Plan: GI is following H&H Q8 7.9 --> to 8.3 --> 7.9 -- > 7.3 today Clear liquid diet Colonoscopy after c.diff resolves (3) C. difficile colitis Current Visit: Yes Status: Acute Assessment and Plan: Patient was having 5-6 watery stools per day. She had a positive C diff toxin PCR. Continues to have diffuse abdominal pain although CT abdomen and pelvis did not suggest toxic megacolon. GI noted the bloody bowel movement is secondary to c. diff. Plan: -GI consulted -Only 1 loose bowel movement today -WBC 25.4, stable -Continue oral Vancomycin day 14 125mg -Continue probiotics -CBC in the morning (4) Acute and chronic respiratory failure with hypoxia Current Visit: Yes Status: Acute Assessment and Plan: Likely 2/2 multifocal pneumonia and COPD exacerbation. She has history of COPD and likely had COPD exacerbation as she was requiring more oxygen. CT chest showed multifocal pneumonia. ECHO on 03/25/2018 showed EF 70% with mild diastolic dysfunction. Her respiratory effort is much improved and is on same oxygen as home. Plan: -Currently on 3L O2 nasal canula. Baseline is 3L O2 at home -Continue duoneb prn and O2 support -Continue attempting to wean down to baseline O2 use -Lasix 40mg IV -Pulmonology consulted: recommended oral 40 mg prednisone, QVAR, spiriva, scheduled duoneb -Pulmmonology recommendations appreciated (5) Pneumonia Current Visit: Yes Status: Resolved Assessment and Plan: CT chest on 04/03 showed multifocal PNA, greatest in the LLL Plan: -Infectious disease and pulmonology consulted -Swallow eval negative for aspiration -Received 10 days of zosyn--stopped 04/09 -Received 3 days of IV vancomycin--stopped 04/09 (6) CAD (coronary artery disease) Current Visit: Yes Status: Chronic Assessment and Plan: Prior history, CABG x 5. Continue ASA, statin, plavix. Patient denies chest pain this morning. Plan: Continue current rosuvastatin Continue telemetry Cardiology recommended outpatient stress test and follow up (7) HTN (hypertension) Current Visit: Yes Status: Chronic Assessment and Plan: History of chronic hypertension. Her current blood pressure 155/66. Plan: Continue home regimen Added hydralazine PRN (8) Hypokalemia Current Visit: Yes Status: Resolved Assessment and Plan: Resolved. On 40 mg of oral potassium daily. Hypokalemia likely due to loose stool. Serum potassium this morning was 4.6. Plan: On a daily potassium replacement Continue to monitor (9) Chest pain Current Visit: Yes Status: Resolved Assessment and Plan: Resolved. Presented for chest pain. Troponin max 0.23, decreased to 0.19. Cardiology consulted and believes this to be due to demand ischemia/ NSTEMI II due to UTI. EKG was normal sinus rhythm. Echo was normal EF: 70%. Plan: Continue ASA, statin, Plavix, metoprolol Cardiology signed off, stress test outpatient Pt has no chest pain now Consider an EKG and troponin if chest pain (10) COPD (chronic obstructive pulmonary disease) Current Visit: Yes Status: Acute Assessment and Plan: Suspected COPD exacerbation. White count remains elevated likely multifactorial- -c. diff and on prednisone. History of COPD, uses 3 liters of oxygen at home and mucinex BID, spiriva and duonebs. Her oxygen demand increased soon after admission requiring 10 liters at one point. Today she is on 3 liters and her cough has resolved. Plan: -Pulmonology consulted, recommedations appreciated -Continue with duoneb Q4h prn -Continue to wean O2 supplementation--currently on 3L O2 via nasal canula -Continue prednisone -Continue with Qvar and spiriva (11) Cholelithiasis Current Visit: Yes Status: Ruled-out Assessment and Plan: CT of the abdomen did not show acute cholecystitis. Plan: GI is awaiting EKTA and mitochondrial antibody (12) Hypomagnesemia Current Visit: Yes Status: Resolved Assessment and Plan: Replaced this morning. Plan: Continue to monitor (13) Chronic anemia Current Visit: Yes Status: Acute Assessment and Plan: Anemia of chronic disease or iron deficiency. Hemoglobin today was 7.3. Monitoring H&H Q8 Plan: Iron level < 10 -Started iron infusion (14) Diabetes type 2, controlled Current Visit: Yes Status: Acute Assessment and Plan: Holding home meds, glucose 113 today Plan: Currently well controlled on LSSI. (15) Pulmonary nodule Current Visit: Yes Status: Acute Assessment and Plan: CT of the chest noted a small lobulated nodule on the right upper lung lobe posteriorly Plan: Need to be followed to resolution after pneumonia resolves outpatient DVT Prophylaxis: EPCDS - Time Spent with Patient Total time spent is greater than 50% in coordination of care (as documented) at patient's floor/unit and/or counseling patient: 25 - 35 minutes Plan of Care Discussed with: patient Internal Medicine: Result - Labs CBC & Chem 7: 04/10/18 06:00 04/10/18 06:00 Labs: Short CBC 04/09/18 04/09/18 04/10/18 Range/Units 12:18 23:00 06:00 WBC 25.6 H (4.3-11.1) K/mcL Hgb 8.3 L 7.9 L 7.3 L (11.5-15.4) g/dL Hct 29.9 L 27.9 L 25.7 L (35.3-44.9) % Plt Count 546 H (140-400) K/mcL Neutrophils # 20.8 H (1.6-8.9) K/mcL BMP 04/10/18 06:00 Sodium 147 H Potassium 4.6 Chloride 108 H Carbon Dioxide 35 H BUN 16 Creatinine 0.58 L Glucose 113 H Calcium 8.8 - ABG Interpretation ABG results: ABG ABG pH 7.42 pH Units (7.32-7.45) 03/28/18 20:10 ABG pCO2 43 mmHg (35-45) 03/28/18 20:10 ABG pO2 55 mmHg (85-104) L 03/28/18 20:10 ABG O2 Saturation 88 % (95-98) L 03/28/18 20:10 PT/INR, D-dimer PT 17.8 Seconds (9.4-12.1) H 04/02/18 06:17 Consult Discharge Plan - Plan Referrals: Kathy Acosta DO [Resident] - <Ju Douglas - Last Filed: 04/10/18 13:48> Hospitalist Progress Note - Encounter Date of Encounter: 04/10/18 - Exam Vitals: Temp Pulse Resp BP Pulse Ox 97.8 F 79 16 192/66 99 04/10/18 09:58 04/10/18 09:58 04/10/18 11:00 04/10/18 09:58 04/10/18 11:00 - Assessment and Plan (1) HTN (hypertension) Current Visit: Yes Status: Chronic (2) CAD (coronary artery disease) Current Visit: Yes Status: Chronic (3) Hypokalemia Current Visit: Yes Status: Resolved (4) Chest pain Current Visit: Yes Status: Resolved (5) Abdominal pain Current Visit: Yes Status: Acute (6) COPD (chronic obstructive pulmonary disease) Current Visit: Yes Status: Acute (7) Pneumonia Current Visit: Yes Status: Resolved (8) C. difficile colitis Current Visit: Yes Status: Acute (9) Cholelithiasis Current Visit: Yes Status: Ruled-out (10) Hypomagnesemia Current Visit: Yes Status: Resolved (11) Chronic anemia Current Visit: Yes Status: Acute (12) Diabetes type 2, controlled Current Visit: Yes Status: Acute (13) Acute and chronic respiratory failure with hypoxia Current Visit: Yes Status: Acute (14) Hematochezia Current Visit: Yes Status: Acute (15) Pulmonary nodule Current Visit: Yes Status: Acute - Time Spent with Patient Total time spent is greater than 50% in coordination of care (as documented) at patient's floor/unit and/or counseling patient: Internal Medicine: Result - Labs CBC & Chem 7: 04/10/18 10:50 04/10/18 06:00 Labs: Short CBC 04/09/18 04/10/18 04/10/18 Range/Units 23:00 06:00 10:50 WBC 25.6 H (4.3-11.1) K/mcL Hgb 7.9 L 7.3 L 7.8 L (11.5-15.4) g/dL Hct 27.9 L 25.7 L 28.1 L (35.3-44.9) % Plt Count 546 H (140-400) K/mcL Neutrophils # 20.8 H (1.6-8.9) K/mcL BMP 04/10/18 06:00 Sodium 147 H Potassium 4.6 Chloride 108 H Carbon Dioxide 35 H BUN 16 Creatinine 0.58 L Glucose 113 H Calcium 8.8 - ABG Interpretation ABG results: ABG ABG pH 7.42 pH Units (7.32-7.45) 03/28/18 20:10 ABG pCO2 43 mmHg (35-45) 03/28/18 20:10 ABG pO2 55 mmHg (85-104) L 03/28/18 20:10 ABG O2 Saturation 88 % (95-98) L 03/28/18 20:10 PT/INR, D-dimer PT 17.8 Seconds (9.4-12.1) H 04/02/18 06:17 - Attending Attestation I examined this patient and my medical decision-making was reviewed with the Resident Physician Dr Salas. I agree with the documented findings, disposition and treatment plan as described in her progress note that is currently pending signature except to the extent set forth below/addl details below Ms Lauren was admitted with Cdiff and multifocal pna. Prolonged hospital course Awake, cont abd cramping pain lower quadrants, no nausea or emesis, Denies fevers, chills. + cough and some mild sob this morning. No bloody bms overnight as confirmed by RN. no presyncope, sob, chest pain. gen- alert, awake,appears stated age eyes- pupils equal round , no conjunctival pallor cv- reg rate and rhythm, normal s1,s2, no murmurs appreciated lungs- anterior exp wheezing, breathing treatment in place and normal resp effort, no rhonchi or crackles abd- soft, diffusely tender, without guarding, non distended,decreased bs skin- no pallor or jaundice neuro- AAOx3 C Diff Colitis, with bloody bms- gi and id following, serial hgb monitoring, ct a/p withOUT toxic feliz colon, transfuse if hgb <7, cont oral vanc, PPI, as per ID will need prolonged course Multifocal pnawith COPD hx- improving on most recent chest CT, as per ID hold vanc IV and zosyn 04/10 and monitor, incidental lung nodule on imaging RUL, fu outpt , pulm following, rvp + mycoplasma pneumo, cont scheduled and prn inhalers /treatments Anemia 2/2 GIB 2/2 C Diff Colitis- serial h/hs, transfuse as above, scds only, she is cont on asa and plavix due to cardiac hx and NSTEMI as below with cards recs, no current bloody bms today, IV venofer Chest pain this admission with trop elevation, now resolved. Type II NSTEMI due to demand ischemia and cardiology followed, now signed off, fu outpt Labile BPs- cont meds as ordered, pain control, will require outpt fu on dc <Lucero Salas - Last Filed: 04/10/18 10:24> (1) Abdominal pain Qualifiers: Abdominal location: generalized Qualified Code(s): R10.84 - Generalized abdominal pain (5) Pneumonia Qualifiers: Pneumonia type: due to unspecified organism Laterality: bilateral Lung location: lower lobe of lung Qualified Code(s): J18.1 - Lobar pneumonia, unspecified organism (6) CAD (coronary artery disease) Qualifiers: Coronary Disease-Associated Artery/Lesion type: [place] artery [place] vs. transplanted heart: [place] heart Associated angina: without angina Qualified Code(s): I25.10 - Atherosclerotic heart disease of [place] coronary artery without angina pectoris (7) HTN (hypertension) Qualifiers: Hypertension type: essential hypertension Qualified Code(s): I10 - Essential (primary) hypertension (9) Chest pain Qualifiers: Chest pain type: chest pain due to myocardial ischemia Ischemic chest pain type: unstable angina pectoris Qualified Code(s): I20.0 - Unstable angina (10) COPD (chronic obstructive pulmonary disease) Qualifiers: COPD type: chronic bronchitis Chronic bronchitis type: mucopurulent Qualified Code(s): J41.1 - Mucopurulent chronic bronchitis (11) Cholelithiasis Qualifiers: Cholelithiasis location: gallbladder Cholecystitis presence: without cholecystitis Biliary obstruction: without biliary obstruction Qualified Code( s): K80.20 - Calculus of gallbladder without cholecystitis without obstruction (14) Diabetes type 2, controlled Qualifiers: Diabetes mellitus senior care insulin use: with senior care use Diabetes mellitus complication status: with hyperglycemia Qualified Code(s): E11.65 - Type 2 diabetes mellitus with hyperglycemia; Z79.4 - detention (current) use of insulin <Ju Douglas - Last Filed: 04/10/18 13:48> (1) HTN (hypertension) Qualifiers: Hypertension type: essential hypertension Qualified Code(s): I10 - Essential (primary) hypertension (2) CAD (coronary artery disease) Qualifiers: Coronary Disease-Associated Artery/Lesion type: [place] artery [place] vs. transplanted heart: [place] heart Associated angina: without angina Qualified Code(s): I25.10 - Atherosclerotic heart disease of [place] coronary artery without angina pectoris (4) Chest pain Qualifiers: Chest pain type: chest pain due to myocardial ischemia Ischemic chest pain type: unstable angina pectoris Qualified Code(s): I20.0 - Unstable angina (5) Abdominal pain Qualifiers: Abdominal location: generalized Qualified Code(s): R10.84 - Generalized abdominal pain (6) COPD (chronic obstructive pulmonary disease) Qualifiers: COPD type: chronic bronchitis Chronic bronchitis type: mucopurulent Qualified Code(s): J41.1 - Mucopurulent chronic bronchitis (7) Pneumonia Qualifiers: Pneumonia type: due to unspecified organism Laterality: bilateral Lung location: lower lobe of lung Qualified Code(s): J18.1 - Lobar pneumonia, unspecified organism (9) Cholelithiasis Qualifiers: Cholelithiasis location: gallbladder Cholecystitis presence: without cholecystitis Biliary obstruction: without biliary obstruction Qualified Code( s): K80.20 - Calculus of gallbladder without cholecystitis without obstruction (12) Diabetes type 2, controlled Qualifiers: Diabetes mellitus terminal supervisor insulin use: with terminal supervisor use Diabetes mellitus complication status: with hyperglycemia Qualified Code(s): E11.65 - Type 2 diabetes mellitus with hyperglycemia; Z79.4 - terminal operations manager (current) use of insulin
[2018-04-10 11:09] LABS: Hematocrit 28.1 % (35.3-44.9); Hemoglobin 7.8 g/dL (11.5-15.4)
--- NOTE | 2018-04-10 13:47 | Infectious Disease Progress No ---
Date of Encounter: 04/10/18 Time of Encounter: 11:50 - Assessment and Plan (1) Sepsis Current Visit: No Status: Acute The patient had three SIRS criteria. Likely secondary to C. difficile and pneumonia. Improved clinically, but the patient continues to have abdominal pain and leukocytosis. Tachycardia has resolved. She has been afebrile. Blood cultures obtained 03/25/18 are negative 2 sets. Qualifiers: Sepsis type: sepsis due to unspecified organism Qualified Code(s): A41.9 - Sepsis, unspecified organism (2) Pneumonia Current Visit: Yes Status: Acute Location: Multifocal, greatest in the left lower lobe. Causative organism: Unclear. No evidence of aspiration noted on exam. Respiratory infectious panel was negative. Strep pneumococcal and legionella urinary antigens were negative. The patient has been able to provide us with 2 sputum cultures that are both negative. CT chest showed improvement. Completed 12 days of Zosyn and 6 days of Vanc. Continue to observe off antibiotics. Qualifiers: Pneumonia type: due to unspecified organism Laterality: bilateral Lung location: lower lobe of lung Qualified Code(s): J18.1 - Lobar pneumonia, unspecified organism (3) C. difficile colitis Current Visit: Yes Status: Acute Severe. Clinically, the patient's stools are more formed, but she is still stooling several times per day. Repeat CT of the abdomen and pelvis showed findings consistent with ileus and gastroenteritis. Continue Vancomycin 125mg PO QID. (day 15) Duration of treatment depends on the clinical picture. We will likely need to extend the duration of treatment since the patient will need antibiotics to complete course of treatment for PNA. Recommend an additional 2 days of PO Vancomycin. Continue C. diff precautions per protocol. (4) Abdominal pain Current Visit: Yes Status: Acute Secondary to C diff colitis and gastroenteritis. GI consulted. Appreciate recommendations. LFTs mildly elevated. Lipase and amylase within normal limits.--> normal. CT abdomen and pelvis on 04/03/2018: Cholelithiasis, small amount of gas within the bladder. Decreased small bowel distention with small bowel wall thickening in the left upper quadrant; no toxic megacolon. Repeat CT of the abdomen and pelvis showed findings consistent with ileus and gastroenteritis. GI re-consulted. Pain management per the primary team. Qualifiers: Abdominal location: generalized Qualified Code(s): R10.84 - Generalized abdominal pain (5) Ileus Current Visit: Yes Status: Deleted GI re-consulted. Await recommendations. (6) UTI (urinary tract infection) Current Visit: No Status: Ruled-out Urine culture was negative. Qualifiers: Urinary tract infection type: catheter-associated UTI Indwelling urinary catheter type: indwelling urethral catheter Encounter type: initial encounter Qualified Code(s): T83.511A - Infection and inflammatory reaction due to indwelling urethral catheter, initial encounter; N39.0 - Urinary tract infection , site not specified (7) Rectal bleeding Current Visit: Yes Status: Acute Patient started having bloody stools overnight. Etiology unclear. Not sure that it is from the C. diff since her stools are formed. Hgb down to 7.3 this morning. GI re-consulted. Management and transfusion parameters per the primary team. - Subjective Interval history: Patient seen and examined. No acute events noted overnight. Patient states overall she feels better, but continues to have diffuse abdominal pain, worse when having a BM. Denies any fevers or chills or rigors. Denies chest pain, shortness of breath, or cough. Denies nausea, vomiting, diarrhea, or constipation. Denies any oral thrush or new skin lesions. She denies any urinary complaints or appetite changes. She states her appetite is okay. Four soft formed stools noted per nursing documentation. Chandra catheter remains patent. Infect Dis PN-Objective Data - Labs CBC & Chem 7: 04/11/18 10:45 04/11/18 10:45 Labs: Laboratory Results - last 24 hr 04/05/18 04/08/18 04/09/18 14:52 20:18 16:04 WBC RBC Hgb Hct MCV MCH MCHC RDW Plt Count MPV Immature Gran % Seg Neutrophils % Lymphocytes % Monocytes % Eosinophils % Basophils % Neutrophils # Lymphocytes # Monocytes # Eosinophils # Basophils # Platelet Estimate Hypochromasia Poikilocytosis Anisocytosis Microcytosis Macrocytosis Target Cells Sodium Potassium Chloride Carbon Dioxide BUN Creatinine Est GFR ( Amer) Est GFR (Non-Af Amer) BUN/Creatinine Ratio Glucose POC Glucose 219 H 307 H Calculated Osmolality Calcium Magnesium EKTA Screen DETECTED A Mitochondria M2 IgG Ab 45.3 H 04/09/18 04/09/18 04/10/18 20:48 23:00 06:00 WBC 25.6 H RBC 3.25 L Hgb 7.9 L 7.3 L Hct 27.9 L 25.7 L MCV 79.1 L MCH 22.5 L MCHC 28.4 L RDW 21.6 H Plt Count 546 H MPV 12.4 Immature Gran % 1.1 Seg Neutrophils % 81.3 Lymphocytes % 11.9 Monocytes % 5.6 Eosinophils % 0.0 Basophils % 0.1 Neutrophils # 20.8 H Lymphocytes # 3.1 Monocytes # 1.4 H Eosinophils # 0.0 Basophils # 0.0 Platelet Estimate Increased H Hypochromasia Present A Poikilocytosis 1+ A Anisocytosis 2+ A Microcytosis Present A Macrocytosis Present A Target Cells 1+ A Sodium Potassium Chloride Carbon Dioxide BUN Creatinine Est GFR ( Amer) Est GFR (Non-Af Amer) BUN/Creatinine Ratio Glucose POC Glucose 191 H Calculated Osmolality Calcium Magnesium EKTA Screen Mitochondria M2 IgG Ab 04/10/18 04/10/18 04/10/18 06:00 07:33 10:50 WBC RBC Hgb 7.8 L Hct 28.1 L MCV MCH MCHC RDW Plt Count MPV Immature Gran % Seg Neutrophils % Lymphocytes % Monocytes % Eosinophils % Basophils % Neutrophils # Lymphocytes # Monocytes # Eosinophils # Basophils # Platelet Estimate Hypochromasia Poikilocytosis Anisocytosis Microcytosis Macrocytosis Target Cells Sodium 147 H Potassium 4.6 Chloride 108 H Carbon Dioxide 35 H BUN 16 Creatinine 0.58 L Est GFR ( Amer) > 60 Est GFR (Non-Af Amer) > 60 BUN/Creatinine Ratio 28 H Glucose 113 H POC Glucose 133 H Calculated Osmolality 306 H Calcium 8.8 Magnesium 1.7 EKTA Screen Mitochondria M2 IgG Ab Cultures: Cultures 04/05/18 13:38 Sputum Culture - Final Sputum 04/05/18 16:38 Sputum Culture - Final Sputum 03/27/18 04:15 Legionella Antigen - Final Urine,[place] Streptococcus pneumoniae Antigen (M - Final Serology 04/05/18 04/05/18 04/05/18 Range/Units 12:12 09:20 09:20 Urine Color (Yellow) Urine Clarity (Clear) Urine pH (5.0-8.0) pH Units Ur Specific [place] (1.010-1.025) Urine Protein (Neg-Trace) mg/dL Urine Glucose (UA) (Normal) mg/dL Urine Ketones (Negative) mg/dL Urine Blood (Negative) Urine Nitrite (Negative) Urine Bilirubin (Negative) Urine Urobilinogen (Normal) mg/dL Ur Leukocyte Esterase (Negative) Urine Microscopic RBC (0-3) per hpf Urine Microscopic WBC (0-3) per hpf Ur Squamous Epith Cells (None-Few) per lpf Urine Bacteria (None-Few) per hpf Hyaline Casts (None-Few) per lpf Urine Yeast Ur Culture Indicated? (NO) Nasal Screen MRSA (PCR) Negative (Negative) Stl C. cayetanensis PCR (Not detect) Stool Rotavirus A PCR (Not detect) Stl Adenov F 40/41 PCR (Not detect) Stool Astrovirus (PCR) (Not detect) Stool Campylobacter PCR (Not detect) Stl C. diff Tox B Gene (Negative) Stl C. diff Tox A/B PCR (Not detect) Stool Cryptosporidium PCR (Not detect) Stl Sh Tox Pr E STEC PCR (Not detect) Stool E coli O157 PCR (Not detect) Stl Enterotoxigenic E PCR (Not detect) Stool EPEC (PCR) (Not detect) Stool EAEC (PCR) (Not detect) Stl E. histolytica PCR (Not detect) Stool Giardia Lamblia PCR (Not detect) Stool Salmonella PCR (Not detect) Stool Sapovirus (PCR) (Not detect) Stl P. shigelloides PCR (Not detect) Stl Shigella/EIEC PCR (Not detect) St Y.enterocolitica PCR (Not detect) Stool Vibrio (PCR) (Not detect) Stl Vibrio cholerae PCR (Not detect) Stl Norovirus GI/GII PCR (Not detect) Stl GI Panel (PCR) Com Chlamy pneumoniae PCR Not Detected (Not Detect) Adenovirus (PCR) Not Detected (Not Detect) B. pertussis DNA (PCR) Not Detected (Not Detect) B.parapertussis DNA PCR Not Detected (Not Detect) Coronavirus OC43 (PCR) Not Detected (Not Detect) Coronavirus HKU1 (PCR) Not Detected (Not Detect) Coronavirus 229E (PCR) Not Detected (Not Detect) Coronavirus NL63 (PCR) Not Detected (Not Detect) Human Metapneumovir PCR Not Detected (Not Detect) Influenza A (H1) PCR Not Detected (Not Detect) Influ A (H1N1/09) PCR Not Detected (Not Detect) Influenza A (H3) PCR Not Detected (Not Detect) Influenza A Untype (PCR) Not Detected (Not Detect) Influenza Type B (PCR) Not Detected (Not Detect) Mycoplasma pneumon IgG 0.48 H (<=0.09) U/L Mycoplasma pneumon IgM 0.13 (<=0.76) U/L M.pneumoniae DNA (PCR) Not Detected (Not Detect) Parainfluenza 1 (PCR) Not Detected (Not Detect) Parainfluenza 2 (PCR) Not Detected (Not Detect) Parainfluenza 3 (PCR) Not Detected (Not Detect) Parainfluenza 4 (PCR) Not Detected (Not Detect) RSV (PCR) Not Detected (Not Detect) Entero/Rhino (PCR) Not Detected (Not Detect) 03/29/18 03/27/18 03/26/18 Range/Units 08:40 04:15 20:10 Urine Color Yellow (Yellow) Urine Clarity Clear (Clear) Urine pH 5.5 (5.0-8.0) pH Units Ur Specific [place] 1.023 (1.010-1.025) Urine Protein Negative (Neg-Trace) mg/dL Urine Glucose (UA) Normal (Normal) mg/dL Urine Ketones Negative (Negative) mg/dL Urine Blood Trace H (Negative) Urine Nitrite Negative (Negative) Urine Bilirubin Negative (Negative) Urine Urobilinogen Normal (Normal) mg/dL Ur Leukocyte Esterase Small H (Negative) Urine Microscopic RBC 3-5 H (0-3) per hpf Urine Microscopic WBC 5-15 H (0-3) per hpf Ur Squamous Epith Cells Many H (None-Few) per lpf Urine Bacteria None Seen (None-Few) per hpf Hyaline Casts Few (None-Few) per lpf Urine Yeast Test Not Performed Ur Culture Indicated? NO. A (NO) Nasal Screen MRSA (PCR) (Negative) Stl C. cayetanensis PCR (Not detect) Stool Rotavirus A PCR (Not detect) Stl Adenov F 40/41 PCR (Not detect) Stool Astrovirus (PCR) (Not detect) Stool Campylobacter PCR (Not detect) Stl C. diff Tox B Gene Positive A (Negative) Stl C. diff Tox A/B PCR (Not detect) Stool Cryptosporidium PCR (Not detect) Stl Sh Tox Pr E STEC PCR (Not detect) Stool E coli O157 PCR (Not detect) Stl Enterotoxigenic E PCR (Not detect) Stool EPEC (PCR) (Not detect) Stool EAEC (PCR) (Not detect) Stl E. histolytica PCR (Not detect) Stool Giardia Lamblia PCR (Not detect) Stool Salmonella PCR (Not detect) Stool Sapovirus (PCR) (Not detect) Stl P. shigelloides PCR (Not detect) Stl Shigella/EIEC PCR (Not detect) St Y.enterocolitica PCR (Not detect) Stool Vibrio (PCR) (Not detect) Stl Vibrio cholerae PCR (Not detect) Stl Norovirus GI/GII PCR (Not detect) Stl GI Panel (PCR) Com Chlamy pneumoniae PCR (Not Detect) Adenovirus (PCR) (Not Detect) B. pertussis DNA (PCR) (Not Detect) B.parapertussis DNA PCR (Not Detect) Coronavirus OC43 (PCR) (Not Detect) Coronavirus HKU1 (PCR) (Not Detect) Coronavirus 229E (PCR) (Not Detect) Coronavirus NL63 (PCR) (Not Detect) Human Metapneumovir PCR (Not Detect) Influenza A (H1) PCR (Not Detect) Influ A (H1N1/09) PCR (Not Detect) Influenza A (H3) PCR (Not Detect) Influenza A Untype (PCR) (Not Detect) Influenza Type B (PCR) (Not Detect) Mycoplasma pneumon IgG 0.30 H (<=0.09) U/L Mycoplasma pneumon IgM 0.06 (<=0.76) U/L M.pneumoniae DNA (PCR) (Not Detect) Parainfluenza 1 (PCR) (Not Detect) Parainfluenza 2 (PCR) (Not Detect) Parainfluenza 3 (PCR) (Not Detect) Parainfluenza 4 (PCR) (Not Detect) RSV (PCR) (Not Detect) Entero/Rhino (PCR) (Not Detect) 03/26/18 Range/Units 20:10 Urine Color (Yellow) Urine Clarity (Clear) Urine pH (5.0-8.0) pH Units Ur Specific [place] (1.010-1.025) Urine Protein (Neg-Trace) mg/dL Urine Glucose (UA) (Normal) mg/dL Urine Ketones (Negative) mg/dL Urine Blood (Negative) Urine Nitrite (Negative) Urine Bilirubin (Negative) Urine Urobilinogen (Normal) mg/dL Ur Leukocyte Esterase (Negative) Urine Microscopic RBC (0-3) per hpf Urine Microscopic WBC (0-3) per hpf Ur Squamous Epith Cells (None-Few) per lpf Urine Bacteria (None-Few) per hpf Hyaline Casts (None-Few) per lpf Urine Yeast Ur Culture Indicated? (NO) Nasal Screen MRSA (PCR) (Negative) Stl C. cayetanensis PCR Not detected (Not detect) Stool Rotavirus A PCR Not detected (Not detect) Stl Adenov F 40/41 PCR Not detected (Not detect) Stool Astrovirus (PCR) Not detected (Not detect) Stool Campylobacter PCR Not detected (Not detect) Stl C. diff Tox B Gene (Negative) Stl C. diff Tox A/B PCR See reflex test A (Not detect) Stool Cryptosporidium PCR Not detected (Not detect) Stl Sh Tox Pr E STEC PCR Not detected (Not detect) Stool E coli O157 PCR Not detected (Not detect) Stl Enterotoxigenic E PCR Not detected (Not detect) Stool EPEC (PCR) Not detected (Not detect) Stool EAEC (PCR) Not detected (Not detect) Stl E. histolytica PCR Not detected (Not detect) Stool Giardia Lamblia PCR Not detected (Not detect) Stool Salmonella PCR Not detected (Not detect) Stool Sapovirus (PCR) Not detected (Not detect) Stl P. shigelloides PCR Not detected (Not detect) Stl Shigella/EIEC PCR Not detected (Not detect) St Y.enterocolitica PCR Not detected (Not detect) Stool Vibrio (PCR) Not detected (Not detect) Stl Vibrio cholerae PCR Not detected (Not detect) Stl Norovirus GI/GII PCR Not detected (Not detect) Stl GI Panel (PCR) Com See below Chlamy pneumoniae PCR (Not Detect) Adenovirus (PCR) (Not Detect) B. pertussis DNA (PCR) (Not Detect) B.parapertussis DNA PCR (Not Detect) Coronavirus OC43 (PCR) (Not Detect) Coronavirus HKU1 (PCR) (Not Detect) Coronavirus 229E (PCR) (Not Detect) Coronavirus NL63 (PCR) (Not Detect) Human Metapneumovir PCR (Not Detect) Influenza A (H1) PCR (Not Detect) Influ A (H1N1/09) PCR (Not Detect) Influenza A (H3) PCR (Not Detect) Influenza A Untype (PCR) (Not Detect) Influenza Type B (PCR) (Not Detect) Mycoplasma pneumon IgG (<=0.09) U/L Mycoplasma pneumon IgM (<=0.76) U/L M.pneumoniae DNA (PCR) (Not Detect) Parainfluenza 1 (PCR) (Not Detect) Parainfluenza 2 (PCR) (Not Detect) Parainfluenza 3 (PCR) (Not Detect) Parainfluenza 4 (PCR) (Not Detect) RSV (PCR) (Not Detect) Entero/Rhino (PCR) (Not Detect) Exam - Constitutional Vitals: Temp Pulse Resp BP Pulse Ox 97.8 F 79 16 192/66 99 04/10/18 09:58 04/10/18 09:58 04/10/18 11:00 04/10/18 09:58 04/10/18 11:00 General appearance: average body habitus, cooperative, no acute distress - Head Head exam: Present: atraumatic, normal inspection, normocephalic - Eye Eye exam: Present: EOMI, normal appearance, PERRL Pupils: Present: normal accommodation - ENT ENT exam: Present: mucous membranes moist - Neck Neck exam: Present: normal inspection - Respiratory Respiratory exam: Present: CTAB. Absent: rales, respiratory distress, rhonchi, wheezes - Cardiovascular Cardiovascular exam: Present: RRR, +S1, +S2 - GI/Abdominal GI/Abdominal exam: Present: normal bowel sounds, soft, tenderness (generalized) . Absent: distended Additional comments: Chandra catheter noted to be draining clear yellow urine. - Extremities Exam Extremities exam: Present: normal inspection. Absent: joint swelling, pedal edema, tenderness - Neurological Exam Neurological exam: Present: alert, oriented X3. Absent: no focal deficits ( Paralysis noted to the RLE with diminished sensation and movement to the RUE.) - Psychiatric Psychiatric exam: Present: normal affect, normal mood - Skin Skin exam: Present: dry, intact, normal color, warm Consult Discharge Plan - Plan Referrals: Kathy Acosta DO [Resident] - - Attending Attestation I examined this patient and my medical decision-making was reviewed with the Resident Physician. I agree with the documented findings, disposition and treatment plan as described except to the extent set forth below.
[2018-04-10] MEDS: Pantoprazole 40 MG VIAL IVP SCH (18:22)
[2018-04-10] MEDS: traZODone 50 MG TABLET PO SCH (23:26)
[2018-04-10] MEDS: Acetaminophen 325 MG TABLET PO PRN (23:45)
[2018-04-11] MEDS: Insulin LISPRO 300 UNITS/3 ML VIAL SQ SCH ×5 (00:11→22:53)
[2018-04-11] MEDS: Ipratropium/Albuterol Neb 3 ML IH SCH ×6 (03:50→23:28)
[2018-04-11] MEDS: Pantoprazole 40 MG VIAL IVP SCH ×2 (06:11→19:07)
[2018-04-11] MEDS ORDERED: predniSONE 20 MG TABLET PO SCH (07:03)
[2018-04-11] MEDS: Beclomethasone 80mcg MDI IH SCH ×2 (07:51→19:50)
[2018-04-11] MEDS: Tiotropium 18 MCG inhalation IH SCH (07:53)
[2018-04-11] MEDS: Aspirin 81 MG TAB.CHEW PO SCH (10:16)
[2018-04-11] MEDS: Sucralfate 1 GM TABLET PO SCH ×3 (10:17→19:08)
[2018-04-11] MEDS: amLODIPine 5 MG TABLET PO SCH (10:18)
[2018-04-11] MEDS: Lactobacillus 1 EACH CAP.SPRINK PO SCH ×2 (10:18→22:52)
[2018-04-11] MEDS: Lisinopril 20 MG TABLET PO SCH (10:18)
[2018-04-11] MEDS: Magnesium Oxide 400 MG TABLET PO SCH (10:18)
[2018-04-11] MEDS: Gabapentin 100 MG CAPSULE PO SCH ×3 (10:18→22:52)
[2018-04-11] MEDS: Vancomycin Oral Soln 125 MG/2.5 ML UDC PO SCH ×4 (10:18→22:52)
[2018-04-11] MEDS: Metoprolol 100 MG TABLET PO SCH (10:18)
[2018-04-11 11:10] LABS: Mean Platelet Volume 12.4 fL (9.4-12.4); Nucleated Red Blood Cells 0.4 /100 WBC (0)
[2018-04-11 11:11] LABS: Hematocrit 29.9 % (35.3-44.9); Hemoglobin 8.4 g/dL (11.5-15.4); Mean Corpuscular HGB Conc 28.1 g/dL (31.6-35.5); Mean Corpuscular Hemoglobin 22.5 pg (28.0-33.3); Mean Corpuscular Volume 80.2 fL (83.0-100.0); Platelet Count 639 K/mcL (140-400); Red Blood Count 3.73 M/mcL (3.82-4.97); Red Cell Distribution Width 22.6 % (11.5-14.5)
[2018-04-11 11:26] LABS: BUN/Creatinine Ratio 20 (6-26); Blood Urea Nitrogen 16 mg/dL (8-23); Calcium 9.2 mg/dL (8.6-10.3); Carbon Dioxide 27 mEq/L (23-29); Chloride 100 mEq/L (98-107); Glucose 123 mg/dL (70-105); Osmolality,Calculated 297 (280-300); Potassium 5.1 mEq/L (3.5-5.1); Sodium 142 mEq/L (136-145); eGFR For Non-African Americans > 60 (> 60)
[2018-04-11 11:33] LABS: Anisocytosis 3+ (Not Present); Lymphocytes # 5.7 K/mcL (0.6-4.6); Neutrophils # 40.9 K/mcL (1.6-8.9)
[2018-04-11 11:34] LABS: Platelet Estimate Marked Increase (Normal); Target Cells 1+ (Not Present)
[2018-04-11 11:35] LABS: Hypochromasia Present (Not Present); Polychromasia 1+ (Not Present)
[2018-04-11] MEDS: OXYCODONE Oral CONC 10 MG/0.5 ML ORAL.SYG SL PRN ×2 (13:01→23:33)
--- NOTE | 2018-04-11 14:42 | Internal Med Progress Note ---
<Lucero Salas - Last Filed: 04/11/18 14:28> Hospitalist Progress Note - Encounter Date of Encounter: 04/11/18 Time of Encounter: 08:40 - Subjective Interval History: Ms. Lauren was examined at bedside this morning. This morning she was resting in bed and complained of ongoing abdominal pain. Her vitals overnight showed one occurrence of elevated temperature of 100.6. Her other vitals remained stable. Her hemoglobin is 7.9 and 8.4 today. Her white count today was 47.6, 25.6 yesterday. Overnight she had no episodes of bloody bowel movements but continues to have loose bowel movements. She continues to have diffuse abdominal pain and has worsened since yesterday. She states her breathing has improved and she is able to expel out good amount of sputum and continues to cough. She is still complaining of feeling cold. She continues to have a poor appetite. She denies shortness of breath or chest pain. - Exam Vitals: Temp Pulse Resp BP Pulse Ox 98.7 F 74 16 104/45 89 04/11/18 10:17 04/11/18 10:17 04/11/18 11:39 04/11/18 10:17 04/11/18 11:39 Exam: Constitutional: Alert, in no acute distress, on nasal canula HEENT: Normocephalic, atraumatic, moist mucus membrane Heart: Normal, regular rate and rhythm, no murmurs Lungs: lungs clear and equal bilaterally Abdomen: Soft, hypoactive bowel sounds, mild abdominal tenderness Extremities: No edema, no clubbing; Ulcer at dorsum of right foot. Skin: Skin warm and dry, no lesions, no rashes, no jaundice Psych: thought content congruent, appropriate affect Neurological Alert and oriented x 3, right upper and lower extremities paralysis due to previous CVA - Assessment and Plan (1) Abdominal pain Current Visit: Yes Status: Acute Assessment and Plan: Likely secondary to C Diff colitis. The pain is not improving. Her vitals overnight were stable. She had 5 episodes of bloody bowel movements yesterday and today has had one loose bowel movement, no blood noted. CT on 04/08 noted focal fat stranding of the abdominal wall. Abd CT on 03/26 showed mural thickness of the distal esophagus, pyloric antrum, and several loops of small bowel in the right lower quadrant/pelvis. There is persistent gallstones but no cholecystitis. Patient denies hematemesis, hematochezia, melena. Gastroenterology wants to rule out primary biliary cirrhosis due to mildly elevated aminotranferase. EKTA and AMA positive. Plan: -Continue telemetry -Continue oral vancomycin 125 mg, day 15 -Continue zofran prn -Continue omeprazole 40 mg -GI consulted. Appreciate further recommendations -Clear liquid diet -Awaiting repeat CBC -Awaiting blood culture (2) Hematochezia Current Visit: Yes Status: Acute (3) C. difficile colitis Current Visit: Yes Status: Acute Assessment and Plan: Patient was having 5-6 watery stools per day. She had a positive C diff toxin PCR. Continues to have diffuse abdominal pain although CT abdomen and pelvis did not suggest toxic megacolon. Blood bowel movements resolved. Continues to have loose bowel movements. Her zosyn and IV vancomycin was stopped two days ago. Plan: -GI consulted, appreciated recommendations -Only 1 loose bowel movement today -WBC 47.5 today, yesterday was 25.6 -Continue oral Vancomycin day 15 125mg -Continue probiotics -Awaiting repeat CBC -Pending blood culture (4) Acute and chronic respiratory failure with hypoxia Current Visit: Yes Status: Acute Assessment and Plan: Likely 2/2 multifocal pneumonia and COPD exacerbation. She has history of COPD and likely had COPD exacerbation as she was requiring more oxygen. CT chest showed multifocal pneumonia. ECHO on 03/25/2018 showed EF 70% with mild diastolic dysfunction. Her respiratory effort is much improved and is on same oxygen as home. Plan: -Currently on 3L O2 nasal canula. Baseline is 3L O2 at home -Continue duoneb prn and O2 support -Continue attempting to wean down to baseline O2 use -Lasix 40mg IV -Pulmonology consulted: recommended oral prednisone taper, QVAR, spiriva, scheduled duoneb -Pulmmonology recommendations appreciated (5) Pneumonia Current Visit: Yes Status: Resolved Assessment and Plan: Resolved. CT chest on 04/03 showed multifocal PNA, greatest in the LLL. Plan: -Chest xray pending -Infectious disease and pulmonology consulted -Swallow eval negative for aspiration -Received 10 days of zosyn--stopped 04/09 -Received 3 days of IV vancomycin--stopped 04/09 (6) CAD (coronary artery disease) Current Visit: Yes Status: Chronic Assessment and Plan: Prior history, CABG x 5. Continue ASA, statin, plavix. Patient denies chest pain this morning. Plan: Continue current rosuvastatin Continue telemetry Cardiology recommended outpatient stress test and follow up (7) HTN (hypertension) Current Visit: Yes Status: Chronic Assessment and Plan: History of chronic hypertension. Her blood pressure this morning 145/54. Plan: Continue home regimen Added hydralazine PRN (8) COPD (chronic obstructive pulmonary disease) Current Visit: Yes Status: Acute Assessment and Plan: Suspected COPD exacerbation. White count remains elevated likely multifactorial- -c. diff and on prednisone. History of COPD, uses 3 liters of oxygen at home and mucinex BID, spiriva and duonebs. Her oxygen demand increased soon after admission requiring 10 liters at one point. Today she is on 3 liters and her cough has resolved. She does removed her nasal cannula at times causing her oxygen saturation to decrease. Plan: -Pulmonology consulted, recommendations appreciated -Continue with duoneb Q4h prn -Continue to wean O2 supplementation--currently on 3L O2 via nasal canula -Continue prednisone taper, 30 mg for total of 3 days, then 20 for 3 days and finally 10 for 3 additional days -Continue with Qvar and spiriva (9) Cholelithiasis Current Visit: Yes Status: Ruled-out Assessment and Plan: CT of the abdomen did not show acute cholecystitis. Her EKTA is high, and mitochondrial M2 IgG antibody is high which can be high due to primary biliary cirrhosis. Plan: Awaiting GI recommendations (10) Chronic anemia Current Visit: Yes Status: Acute Assessment and Plan: Anemia of chronic disease or iron deficiency. Hemoglobin today was 8.4. Monitoring hemoglobin daily. No longer having bloody bowel movements. Plan: Iron level < 10 -Started iron infusion (day 2) (11) Diabetes type 2, controlled Current Visit: Yes Status: Acute Assessment and Plan: Holding home meds, glucose 114 today Plan: Currently well controlled on LSSI. (12) Pulmonary nodule Current Visit: Yes Status: Acute Assessment and Plan: CT of the chest noted a small lobulated nodule on the right upper lung lobe posteriorly Plan: Need to be followed to resolution after pneumonia resolves outpatient (13) Chest pain Current Visit: Yes Status: Resolved Assessment and Plan: Resolved. Presented for chest pain. Troponin max 0.23, decreased to 0.19. Cardiology consulted and believes this to be due to demand ischemia/ NSTEMI II due to UTI. EKG was normal sinus rhythm. Echo was normal EF: 70%. Plan: Continue ASA, statin, Plavix, metoprolol Cardiology signed off, stress test outpatient Pt has no chest pain now Consider an EKG and troponin if chest pain (14) Leukocytosis Current Visit: Yes Status: Acute Assessment and Plan: Persistent leukocytosis. She had white count of 43.9 on second day of presentation. She was diagnosed with c. diff and started on oral vancomycin. She has received 15 days of vancomycin. She was additionally started on prednisone 7 days ago due to COPD exacerbation. Her white count has remained high which can be due to prednisone and ongoing c. diff. She was also on IV zosyn for 10 days and IV vancomycin for 3 days. Both of these drugs were stopped two days ago. This morning her white count was 47.5. She did spike fever last night 100.6. Plan: Repeat CBC is pending UA is pending Also, repeat blood cultures are pending Continue to monitor for vitals DVT Prophylaxis: Continue EPCD - Time Spent with Patient Total time spent is greater than 50% in coordination of care (as documented) at patient's floor/unit and/or counseling patient: less than 15 minutes Plan of Care Discussed with: patient Internal Medicine: Result - Labs CBC & Chem 7: 04/11/18 10:45 04/11/18 10:45 Labs: Short CBC 04/11/18 Range/Units 10:45 WBC 47.5 H* D (4.3-11.1) K/mcL Hgb 8.4 L (11.5-15.4) g/dL Hct 29.9 L (35.3-44.9) % Plt Count 639 H (140-400) K/mcL Neutrophils # 40.9 H (1.6-8.9) K/mcL BMP 04/11/18 10:45 Sodium 142 Potassium 5.1 Chloride 100 Carbon Dioxide 27 BUN 16 Creatinine 0.79 Glucose 123 H Calcium 9.2 - ABG Interpretation ABG results: ABG ABG pH 7.42 pH Units (7.32-7.45) 03/28/18 20:10 ABG pCO2 43 mmHg (35-45) 03/28/18 20:10 ABG pO2 55 mmHg (85-104) L 03/28/18 20:10 ABG O2 Saturation 88 % (95-98) L 03/28/18 20:10 PT/INR, D-dimer PT 17.8 Seconds (9.4-12.1) H 04/02/18 06:17 Consult Discharge Plan - Plan Referrals: Kathy Acosta DO [Resident] - <Ju Douglas - Last Filed: 04/11/18 18:01> Hospitalist Progress Note - Encounter Date of Encounter: 04/11/18 - Exam Vitals: Temp Pulse Resp BP Pulse Ox 98.2 F 79 16 93/46 90 04/11/18 15:09 04/11/18 15:09 04/11/18 15:29 04/11/18 15:09 04/11/18 15:29 - Assessment and Plan (1) HTN (hypertension) Current Visit: Yes Status: Chronic (2) CAD (coronary artery disease) Current Visit: Yes Status: Chronic (3) Chest pain Current Visit: Yes Status: Resolved (4) Abdominal pain Current Visit: Yes Status: Acute (5) COPD (chronic obstructive pulmonary disease) Current Visit: Yes Status: Acute (6) Pneumonia Current Visit: Yes Status: Resolved (7) C. difficile colitis Current Visit: Yes Status: Acute (8) Cholelithiasis Current Visit: Yes Status: Ruled-out (9) Chronic anemia Current Visit: Yes Status: Acute (10) Diabetes type 2, controlled Current Visit: Yes Status: Acute (11) Acute and chronic respiratory failure with hypoxia Current Visit: Yes Status: Acute (12) Hematochezia Current Visit: Yes Status: Acute (13) Pulmonary nodule Current Visit: Yes Status: Acute (14) Leukocytosis Current Visit: Yes Status: Acute - Time Spent with Patient Total time spent is greater than 50% in coordination of care (as documented) at patient's floor/unit and/or counseling patient: Internal Medicine: Result - Labs CBC & Chem 7: 04/11/18 10:45 04/11/18 10:45 Labs: Short CBC 04/11/18 Range/Units 10:45 WBC 47.5 H* D (4.3-11.1) K/mcL Hgb 8.4 L (11.5-15.4) g/dL Hct 29.9 L (35.3-44.9) % Plt Count 639 H (140-400) K/mcL Neutrophils # 40.9 H (1.6-8.9) K/mcL BMP 04/11/18 10:45 Sodium 142 Potassium 5.1 Chloride 100 Carbon Dioxide 27 BUN 16 Creatinine 0.79 Glucose 123 H Calcium 9.2 - ABG Interpretation ABG results: ABG ABG pH 7.42 pH Units (7.32-7.45) 03/28/18 20:10 ABG pCO2 43 mmHg (35-45) 03/28/18 20:10 ABG pO2 55 mmHg (85-104) L 03/28/18 20:10 ABG O2 Saturation 88 % (95-98) L 03/28/18 20:10 PT/INR, D-dimer PT 17.8 Seconds (9.4-12.1) H 04/02/18 06:17 - Attending Attestation I examined this patient and my medical decision-making was reviewed with the Resident Physician Dr Salas. I agree with the documented findings, disposition and treatment plan as described in her progress note that is currently pending signature except to the extent set forth below/addl details below Ms Lauren was admitted with Cdiff and multifocal pna. Prolonged hospital course which now includes refractory c diff symptoms with current treatment and worsening abd pain and wbc elevation as of 04/11 Awake, cont abd pain, without relief, cont diarrhea ( no blood per nursing) at increased frequency per pt. No nausea, emesis, fevers of chills. Breathing, sob , cough she feels are stable at this time. She is fatigued and has no appetite. gen- alert, awake,appears stated age eyes- pupils equal round , no conjunctival pallor cv- reg rate and rhythm, normal s1,s2, no murmurs appreciated, no le edema lungs- ctabl in ant/lat garcia, without rhonchi, wheezing abd- soft, diffusely tender, with guarding, mildly distended,decreased bs skin- no pallor or jaundice, warm dry neuro- AAOx3 C Diff Colitis now with SIRS criteria 04/11, with bloody bms that appear to have resolved, worsening abd pain, worsening WBC elevation - gi and id following -serial hgb monitoring transfuse if hgb <7, -ct a/p withOUT toxic feliz colon earlier this week and showed findings c/w gastroenteritis and ileus -repeat CT today -team d/w gi today and plan for sigmoidoscopy in am - cont oral vanc, PPI As per ID today: If CT is suggestive of worsening symptoms we will do IV Flagyl and per rectum vancomycin enema and consider transferring the patient for fecal transplant, Continue Vancomycin 125mg PO QID. (day 15); start Flagyl 500 mg IV every 8 hours Multifocal pnawith COPD hx- improving on most recent chest CT, as per ID hold vanc IV and zosyn 04/10 and monitor, incidental lung nodule on imaging RUL, fu outpt , pulm following, rvp + mycoplasma pneumo, cont scheduled and prn inhalers /treatments Worsening Leukocytosis into 40s, Fever 100.6 04/10/18 -repeat cbc, repeat ua, cx, cxr, bl cxs -abx as above Anemia 2/2 GIB 2/2 C Diff Colitis- serial h/hs, transfuse as above, scds only, she is cont on asa and plavix due to cardiac hx and NSTEMI as below with cards recs, no current bloody bms today, IV venofer given with improvement in hgb Chest pain this admission with trop elevation, now resolved. Type II NSTEMI due to demand ischemia and cardiology followed, now signed off, fu outpt Labile BPs now 04/11 low normotensive--hold acei, bb and norvasc at this time, close monitoring of bp, will require outpt fu on dc Abd Pain, multifactorial as above Gastroenterology wants to rule out primary biliary cirrhosis due to mildly elevated aminotranferase. EKTA and AMA positive. <Lucero Salas - Last Filed: 04/11/18 14:28> (1) Abdominal pain Qualifiers: Abdominal location: generalized Qualified Code(s): R10.84 - Generalized abdominal pain (5) Pneumonia Qualifiers: Pneumonia type: due to unspecified organism Laterality: bilateral Lung location: lower lobe of lung Qualified Code(s): J18.1 - Lobar pneumonia, unspecified organism (6) CAD (coronary artery disease) Qualifiers: Coronary Disease-Associated Artery/Lesion type: [place] artery [place] vs. transplanted heart: [place] heart Associated angina: without angina Qualified Code(s): I25.10 - Atherosclerotic heart disease of [place] coronary artery without angina pectoris (7) HTN (hypertension) Qualifiers: Hypertension type: essential hypertension Qualified Code(s): I10 - Essential (primary) hypertension (8) COPD (chronic obstructive pulmonary disease) Qualifiers: COPD type: chronic bronchitis Chronic bronchitis type: mucopurulent Qualified Code(s): J41.1 - Mucopurulent chronic bronchitis (9) Cholelithiasis Qualifiers: Cholelithiasis location: gallbladder Cholecystitis presence: without cholecystitis Biliary obstruction: without biliary obstruction Qualified Code( s): K80.20 - Calculus of gallbladder without cholecystitis without obstruction (11) Diabetes type 2, controlled Qualifiers: Diabetes mellitus retirement insulin use: with retirement use Diabetes mellitus complication status: with hyperglycemia Qualified Code(s): E11.65 - Type 2 diabetes mellitus with hyperglycemia; Z79.4 - retirement (current) use of insulin (13) Chest pain Qualifiers: Chest pain type: chest pain due to myocardial ischemia Ischemic chest pain type: unstable angina pectoris Qualified Code(s): I20.0 - Unstable angina <Ju Douglas - Last Filed: 04/11/18 18:01> (1) HTN (hypertension) Qualifiers: Hypertension type: essential hypertension Qualified Code(s): I10 - Essential (primary) hypertension (2) CAD (coronary artery disease) Qualifiers: Coronary Disease-Associated Artery/Lesion type: [place] artery [place] vs. transplanted heart: [place] heart Associated angina: without angina Qualified Code(s): I25.10 - Atherosclerotic heart disease of [place] coronary artery without angina pectoris (3) Chest pain Qualifiers: Chest pain type: chest pain due to myocardial ischemia Ischemic chest pain type: unstable angina pectoris Qualified Code(s): I20.0 - Unstable angina (4) Abdominal pain Qualifiers: Abdominal location: generalized Qualified Code(s): R10.84 - Generalized abdominal pain (5) COPD (chronic obstructive pulmonary disease) Qualifiers: COPD type: chronic bronchitis Chronic bronchitis type: mucopurulent Qualified Code(s): J41.1 - Mucopurulent chronic bronchitis (6) Pneumonia Qualifiers: Pneumonia type: due to unspecified organism Laterality: bilateral Lung location: lower lobe of lung Qualified Code(s): J18.1 - Lobar pneumonia, unspecified organism (8) Cholelithiasis Qualifiers: Cholelithiasis location: gallbladder Cholecystitis presence: without cholecystitis Biliary obstruction: without biliary obstruction Qualified Code( s): K80.20 - Calculus of gallbladder without cholecystitis without obstruction (10) Diabetes type 2, controlled Qualifiers: 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
--- NOTE | 2018-04-11 15:29 | Infectious Disease Progress No ---
Date of Encounter: 04/11/18 Time of Encounter: 15:26 - Assessment and Plan (1) Sepsis Current Visit: No Status: Acute The patient had three SIRS criteria. Likely secondary to C. difficile and pneumonia. Improved clinically, but the patient continues to have abdominal pain and leukocytosis. Tachycardia has resolved. She has been afebrile. Blood cultures obtained 03/25/18 are negative 2 sets. Qualifiers: Sepsis type: sepsis due to unspecified organism Qualified Code(s): A41.9 - Sepsis, unspecified organism (2) Pneumonia Current Visit: Yes Status: Acute Location: Multifocal, greatest in the left lower lobe. Causative organism: Unclear. No evidence of aspiration noted on exam. Respiratory infectious panel was negative. Strep pneumococcal and legionella urinary antigens were negative. The patient has been able to provide us with 2 sputum cultures that are both negative. CT chest showed improvement. Completed 12 days of Zosyn and 6 days of Vanc. Continue to observe off antibiotics. Qualifiers: Pneumonia type: due to unspecified organism Laterality: bilateral Lung location: lower lobe of lung Qualified Code(s): J18.1 - Lobar pneumonia, unspecified organism (3) C. difficile colitis Current Visit: Yes Status: Acute Severe. Clinically, the patient's stools are more formed, but she is still stooling several times per day. Repeat CT of the abdomen and pelvis showed findings consistent with ileus and gastroenteritis on 04/08/[address] Enriquez; consider repeating imaging to see if the patient has toxic megacolon or worsening ileus If CT is suggestive of worsening symptoms we will do IV Flagyl and per rectum vancomycin enema and consider transferring the patient for fecal transplant Continue Vancomycin 125mg PO QID. (day 15); start Flagyl 500 mg IV every 8 hours Duration of treatment depends on the clinical picture. We were planning to stop the antibiotic soon but clinically the patient is not improving. (4) Abdominal pain Current Visit: Yes Status: Acute Secondary to C diff colitis and gastroenteritis. GI consulted. Appreciate recommendations. LFTs mildly elevated. Lipase and amylase within normal limits.--> normal. CT abdomen and pelvis on 04/03/2018: Cholelithiasis, small amount of gas within the bladder. Decreased small bowel distention with small bowel wall thickening in the left upper quadrant; no toxic megacolon. Repeat CT of the abdomen and pelvis showed findings consistent with ileus and gastroenteritis. GI re-consulted. Pain management per the primary team. Qualifiers: Abdominal location: generalized Qualified Code(s): R10.84 - Generalized abdominal pain (5) Ileus Current Visit: Yes Status: Deleted GI re-consulted. Await recommendations. (6) UTI (urinary tract infection) Current Visit: No Status: Ruled-out Urine culture was negative. Qualifiers: Urinary tract infection type: catheter-associated UTI Indwelling urinary catheter type: indwelling urethral catheter Encounter type: initial encounter Qualified Code(s): T83.511A - Infection and inflammatory reaction due to indwelling urethral catheter, initial encounter; N39.0 - Urinary tract infection , site not specified (7) Rectal bleeding Current Visit: Yes Status: Acute Patient started having bloody stools overnight. Etiology unclear. Not sure that it is from the C. diff since her stools are formed. Hgb down to 7.3 this morning. GI re-consulted. Management and transfusion parameters per the primary team. - Subjective Interval history: Patient seen and examined. Appears weak and tired. Her pulse ox is low but I think that the pulse oximeter is not reading the waist properly She tells me she continues to have diarrhea but nursing tells me that her stool is more formed. I did speak with Dr. Lee and the concern is for C. difficile that is not responding to treatment Infect Dis PN-Objective Data - Labs CBC & Chem 7: 04/11/18 10:45 04/11/18 10:45 Labs: Laboratory Results - last 24 hr 04/05/18 04/07/18 04/07/18 14:52 07:49 11:27 WBC RBC Hgb Hct MCV MCH MCHC RDW Plt Count MPV Seg Neutrophils % Band Neutrophils % Lymphocytes % Monocytes % Neutrophils # Lymphocytes # Monocytes # Nucleated RBCs/100 WBC Platelet Estimate Polychromasia Hypochromasia Anisocytosis Target Cells Sodium Potassium Chloride Carbon Dioxide BUN Creatinine Est GFR ( Amer) Est GFR (Non-Af Amer) BUN/Creatinine Ratio Glucose POC Glucose 190 H 185 H Calculated Osmolality Calcium Magnesium EKTA Titer 1:160 H 04/10/18 04/10/18 04/11/18 11:09 16:13 08:43 WBC RBC Hgb Hct MCV MCH MCHC RDW Plt Count MPV Seg Neutrophils % Band Neutrophils % Lymphocytes % Monocytes % Neutrophils # Lymphocytes # Monocytes # Nucleated RBCs/100 WBC Platelet Estimate Polychromasia Hypochromasia Anisocytosis Target Cells Sodium Potassium Chloride Carbon Dioxide BUN Creatinine Est GFR ( Amer) Est GFR (Non-Af Amer) BUN/Creatinine Ratio Glucose POC Glucose 195 H 224 H 126 H Calculated Osmolality Calcium Magnesium EKTA Titer 04/11/18 04/11/18 10:45 10:45 WBC 47.5 H* D RBC 3.73 L Hgb 8.4 L Hct 29.9 L MCV 80.2 L MCH 22.5 L MCHC 28.1 L RDW 22.6 H Plt Count 639 H MPV 12.4 Seg Neutrophils % 85.0 Band Neutrophils % 1.0 Lymphocytes % 12.0 Monocytes % 2.0 Neutrophils # 40.9 H Lymphocytes # 5.7 H Monocytes # 1.0 Nucleated RBCs/100 WBC 0.4 H Platelet Estimate Marked Increase H Polychromasia 1+ A Hypochromasia Present A Anisocytosis 3+ A Target Cells 1+ A Sodium 142 Potassium 5.1 Chloride 100 Carbon Dioxide 27 BUN 16 Creatinine 0.79 Est GFR ( Amer) > 60 Est GFR (Non-Af Amer) > 60 BUN/Creatinine Ratio 20 Glucose 123 H POC Glucose Calculated Osmolality 297 Calcium 9.2 Magnesium 2.0 EKTA Titer Cultures: Cultures 04/11/18 11:55 Blood Culture - Preliminary Peripheral Venipuncture Culture is incubating and being continuously monitored for growth. Final report to follow. 04/11/18 11:53 Blood Culture - Preliminary Peripheral Venipuncture Culture is incubating and being continuously monitored for growth. Final report to follow. 04/05/18 13:38 Sputum Culture - Final Sputum 04/05/18 16:38 Sputum Culture - Final Sputum 03/27/18 04:15 Legionella Antigen - Final Urine,[place] Streptococcus pneumoniae Antigen (M - Final Serology 04/05/18 04/05/18 04/05/18 Range/Units 12:12 09:20 09:20 Urine Color (Yellow) Urine Clarity (Clear) Urine pH (5.0-8.0) pH Units Ur Specific [place] (1.010-1.025) Urine Protein (Neg-Trace) mg/dL Urine Glucose (UA) (Normal) mg/dL Urine Ketones (Negative) mg/dL Urine Blood (Negative) Urine Nitrite (Negative) Urine Bilirubin (Negative) Urine Urobilinogen (Normal) mg/dL Ur Leukocyte Esterase (Negative) Urine Microscopic RBC (0-3) per hpf Urine Microscopic WBC (0-3) per hpf Ur Squamous Epith Cells (None-Few) per lpf Urine Bacteria (None-Few) per hpf Hyaline Casts (None-Few) per lpf Urine Yeast Ur Culture Indicated? (NO) Nasal Screen MRSA (PCR) Negative (Negative) Stl C. cayetanensis PCR (Not detect) Stool Rotavirus A PCR (Not detect) Stl Adenov F 40/41 PCR (Not detect) Stool Astrovirus (PCR) (Not detect) Stool Campylobacter PCR (Not detect) Stl C. diff Tox B Gene (Negative) Stl C. diff Tox A/B PCR (Not detect) Stool Cryptosporidium PCR (Not detect) Stl Sh Tox Pr E STEC PCR (Not detect) Stool E coli O157 PCR (Not detect) Stl Enterotoxigenic E PCR (Not detect) Stool EPEC (PCR) (Not detect) Stool EAEC (PCR) (Not detect) Stl E. histolytica PCR (Not detect) Stool Giardia Lamblia PCR (Not detect) Stool Salmonella PCR (Not detect) Stool Sapovirus (PCR) (Not detect) Stl P. shigelloides PCR (Not detect) Stl Shigella/EIEC PCR (Not detect) St Y.enterocolitica PCR (Not detect) Stool Vibrio (PCR) (Not detect) Stl Vibrio cholerae PCR (Not detect) Stl Norovirus GI/GII PCR (Not detect) Stl GI Panel (PCR) Com Chlamy pneumoniae PCR Not Detected (Not Detect) Adenovirus (PCR) Not Detected (Not Detect) B. pertussis DNA (PCR) Not Detected (Not Detect) B.parapertussis DNA PCR Not Detected (Not Detect) Coronavirus OC43 (PCR) Not Detected (Not Detect) Coronavirus HKU1 (PCR) Not Detected (Not Detect) Coronavirus 229E (PCR) Not Detected (Not Detect) Coronavirus NL63 (PCR) Not Detected (Not Detect) Human Metapneumovir PCR Not Detected (Not Detect) Influenza A (H1) PCR Not Detected (Not Detect) Influ A (H1N1/09) PCR Not Detected (Not Detect) Influenza A (H3) PCR Not Detected (Not Detect) Influenza A Untype (PCR) Not Detected (Not Detect) Influenza Type B (PCR) Not Detected (Not Detect) Mycoplasma pneumon IgG 0.48 H (<=0.09) U/L Mycoplasma pneumon IgM 0.13 (<=0.76) U/L M.pneumoniae DNA (PCR) Not Detected (Not Detect) Parainfluenza 1 (PCR) Not Detected (Not Detect) Parainfluenza 2 (PCR) Not Detected (Not Detect) Parainfluenza 3 (PCR) Not Detected (Not Detect) Parainfluenza 4 (PCR) Not Detected (Not Detect) RSV (PCR) Not Detected (Not Detect) Entero/Rhino (PCR) Not Detected (Not Detect) 03/29/18 03/27/18 03/26/18 Range/Units 08:40 04:15 20:10 Urine Color Yellow (Yellow) Urine Clarity Clear (Clear) Urine pH 5.5 (5.0-8.0) pH Units Ur Specific [place] 1.023 (1.010-1.025) Urine Protein Negative (Neg-Trace) mg/dL Urine Glucose (UA) Normal (Normal) mg/dL Urine Ketones Negative (Negative) mg/dL Urine Blood Trace H (Negative) Urine Nitrite Negative (Negative) Urine Bilirubin Negative (Negative) Urine Urobilinogen Normal (Normal) mg/dL Ur Leukocyte Esterase Small H (Negative) Urine Microscopic RBC 3-5 H (0-3) per hpf Urine Microscopic WBC 5-15 H (0-3) per hpf Ur Squamous Epith Cells Many H (None-Few) per lpf Urine Bacteria None Seen (None-Few) per hpf Hyaline Casts Few (None-Few) per lpf Urine Yeast Test Not Performed Ur Culture Indicated? NO. A (NO) Nasal Screen MRSA (PCR) (Negative) Stl C. cayetanensis PCR (Not detect) Stool Rotavirus A PCR (Not detect) Stl Adenov F 40/41 PCR (Not detect) Stool Astrovirus (PCR) (Not detect) Stool Campylobacter PCR (Not detect) Stl C. diff Tox B Gene Positive A (Negative) Stl C. diff Tox A/B PCR (Not detect) Stool Cryptosporidium PCR (Not detect) Stl Sh Tox Pr E STEC PCR (Not detect) Stool E coli O157 PCR (Not detect) Stl Enterotoxigenic E PCR (Not detect) Stool EPEC (PCR) (Not detect) Stool EAEC (PCR) (Not detect) Stl E. histolytica PCR (Not detect) Stool Giardia Lamblia PCR (Not detect) Stool Salmonella PCR (Not detect) Stool Sapovirus (PCR) (Not detect) Stl P. shigelloides PCR (Not detect) Stl Shigella/EIEC PCR (Not detect) St Y.enterocolitica PCR (Not detect) Stool Vibrio (PCR) (Not detect) Stl Vibrio cholerae PCR (Not detect) Stl Norovirus GI/GII PCR (Not detect) Stl GI Panel (PCR) Com Chlamy pneumoniae PCR (Not Detect) Adenovirus (PCR) (Not Detect) B. pertussis DNA (PCR) (Not Detect) B.parapertussis DNA PCR (Not Detect) Coronavirus OC43 (PCR) (Not Detect) Coronavirus HKU1 (PCR) (Not Detect) Coronavirus 229E (PCR) (Not Detect) Coronavirus NL63 (PCR) (Not Detect) Human Metapneumovir PCR (Not Detect) Influenza A (H1) PCR (Not Detect) Influ A (H1N1/09) PCR (Not Detect) Influenza A (H3) PCR (Not Detect) Influenza A Untype (PCR) (Not Detect) Influenza Type B (PCR) (Not Detect) Mycoplasma pneumon IgG 0.30 H (<=0.09) U/L Mycoplasma pneumon IgM 0.06 (<=0.76) U/L M.pneumoniae DNA (PCR) (Not Detect) Parainfluenza 1 (PCR) (Not Detect) Parainfluenza 2 (PCR) (Not Detect) Parainfluenza 3 (PCR) (Not Detect) Parainfluenza 4 (PCR) (Not Detect) RSV (PCR) (Not Detect) Entero/Rhino (PCR) (Not Detect) 03/26/18 Range/Units 20:10 Urine Color (Yellow) Urine Clarity (Clear) Urine pH (5.0-8.0) pH Units Ur Specific [place] (1.010-1.025) Urine Protein (Neg-Trace) mg/dL Urine Glucose (UA) (Normal) mg/dL Urine Ketones (Negative) mg/dL Urine Blood (Negative) Urine Nitrite (Negative) Urine Bilirubin (Negative) Urine Urobilinogen (Normal) mg/dL Ur Leukocyte Esterase (Negative) Urine Microscopic RBC (0-3) per hpf Urine Microscopic WBC (0-3) per hpf Ur Squamous Epith Cells (None-Few) per lpf Urine Bacteria (None-Few) per hpf Hyaline Casts (None-Few) per lpf Urine Yeast Ur Culture Indicated? (NO) Nasal Screen MRSA (PCR) (Negative) Stl C. cayetanensis PCR Not detected (Not detect) Stool Rotavirus A PCR Not detected (Not detect) Stl Adenov F 40/41 PCR Not detected (Not detect) Stool Astrovirus (PCR) Not detected (Not detect) Stool Campylobacter PCR Not detected (Not detect) Stl C. diff Tox B Gene (Negative) Stl C. diff Tox A/B PCR See reflex test A (Not detect) Stool Cryptosporidium PCR Not detected (Not detect) Stl Sh Tox Pr E STEC PCR Not detected (Not detect) Stool E coli O157 PCR Not detected (Not detect) Stl Enterotoxigenic E PCR Not detected (Not detect) Stool EPEC (PCR) Not detected (Not detect) Stool EAEC (PCR) Not detected (Not detect) Stl E. histolytica PCR Not detected (Not detect) Stool Giardia Lamblia PCR Not detected (Not detect) Stool Salmonella PCR Not detected (Not detect) Stool Sapovirus (PCR) Not detected (Not detect) Stl P. shigelloides PCR Not detected (Not detect) Stl Shigella/EIEC PCR Not detected (Not detect) St Y.enterocolitica PCR Not detected (Not detect) Stool Vibrio (PCR) Not detected (Not detect) Stl Vibrio cholerae PCR Not detected (Not detect) Stl Norovirus GI/GII PCR Not detected (Not detect) Stl GI Panel (PCR) Com See below Chlamy pneumoniae PCR (Not Detect) Adenovirus (PCR) (Not Detect) B. pertussis DNA (PCR) (Not Detect) B.parapertussis DNA PCR (Not Detect) Coronavirus OC43 (PCR) (Not Detect) Coronavirus HKU1 (PCR) (Not Detect) Coronavirus 229E (PCR) (Not Detect) Coronavirus NL63 (PCR) (Not Detect) Human Metapneumovir PCR (Not Detect) Influenza A (H1) PCR (Not Detect) Influ A (H1N1/09) PCR (Not Detect) Influenza A (H3) PCR (Not Detect) Influenza A Untype (PCR) (Not Detect) Influenza Type B (PCR) (Not Detect) Mycoplasma pneumon IgG (<=0.09) U/L Mycoplasma pneumon IgM (<=0.76) U/L M.pneumoniae DNA (PCR) (Not Detect) Parainfluenza 1 (PCR) (Not Detect) Parainfluenza 2 (PCR) (Not Detect) Parainfluenza 3 (PCR) (Not Detect) Parainfluenza 4 (PCR) (Not Detect) RSV (PCR) (Not Detect) Entero/Rhino (PCR) (Not Detect) Exam - Constitutional Vitals: Temp Pulse Resp BP Pulse Ox 98.2 F 79 14 93/46 90 04/11/18 15:09 04/11/18 15:09 04/11/18 15:09 04/11/18 15:09 04/11/18 15:09 General appearance: no acute distress, no febrile - Head Head exam: Present: atraumatic, normocephalic - Respiratory Additional comments: Air sounds are audible both lung garcia. Decreased breath sounds universally. Respiratory effort. No wheezing or rhonchi - Cardiovascular Cardiovascular exam: Present: RRR, +S1, +S2 - GI/Abdominal GI/Abdominal exam: Present: hyperactive bowel sounds, soft, tenderness. Absent : guarding - Extremities Exam Extremities exam: Present: full ROM, normal inspection Consult Discharge Plan - Plan Referrals: Kathy Acosta DO [Resident] -
[2018-04-11] MEDS: MetroNIDAZOLE 500 MG/100 ML 500 MG/100 ML BAG IVPB SCH (19:07)
[2018-04-11 20:03] LABS: Basophils % 0.1 %; Eosinophils # 0.2 K/mcL (0.0-0.6); Eosinophils % 0.4 %; Hematocrit 30.3 % (35.3-44.9); Hemoglobin 8.6 g/dL (11.5-15.4); Immature Granulocytes % 3.5 % (0-4); Lymphocytes # 2.4 K/mcL (0.6-4.6); Lymphocytes % 5.3 %; Mean Corpuscular HGB Conc 28.4 g/dL (31.6-35.5); Mean Corpuscular Hemoglobin 23.2 pg (28.0-33.3); Mean Corpuscular Volume 81.7 fL (83.0-100.0); Mean Platelet Volume 12.8 fL (9.4-12.4); Monocytes # 1.1 K/mcL (0.0-1.3); Monocytes % 2.4 %; Nucleated Red Blood Cells 0.8 /100 WBC (0); Platelet Count 676 K/mcL (140-400); Red Blood Count 3.71 M/mcL (3.82-4.97); Red Cell Distribution Width 22.7 % (11.5-14.5); Segmented Neutrophils % 88.3 %
[2018-04-11 20:08] LABS: Neutrophils # 39.6 K/mcL (1.6-8.9)
[2018-04-11 20:28] LABS: Anisocytosis 2+ (Not Present); Hypochromasia Present (Not Present); Platelet Estimate Marked Increase (Normal)
[2018-04-11 21:03] LABS: Bilirubin,Urine Negative (Negative); Blood,Urine Negative (Negative); Color,Urine Dark Yellow (Yellow); Glucose,Urine (UA) Normal (Normal); Ketones,Urine Negative (Negative); Leukocyte Esterase,Urine Small (Negative); Nitrite,Urine Negative (Negative); Protein,Urine Trace mg/dL (Neg-Trace); Specific Gravity,Urine 1.018 (1.010-1.025); Urobilinogen,Urine Normal (Normal)
[2018-04-11 21:06] LABS: Squamous Epithelial Cell,Urine Many per lpf (None-Few); WBC,Urine 15-30 per hpf (0-3)
[2018-04-11 21:08] LABS: Clarity,Urine Hazy (Clear)
[2018-04-11 21:19] LABS: Hyaline Casts,Urine Few per lpf (None-Few); Yeast,Urine Many per hpf (None Seen)
[2018-04-11 21:20] LABS: Bacteria,Urine Many per hpf (None-Few)
[2018-04-11] MEDS: traZODone 50 MG TABLET PO SCH (22:51)
[2018-04-11 23:13] LABS: ABG Base Excess -2 mEq/L (-2 to 3); ABG HCO3 23 mEq/L (21-27); ABG Oxygen Saturation 86 % (95-98); ABG PCO2 39 mmHg (35-45); ABG PH 7.38 pH Units (7.32-7.45); ABG PO2 51 mmHg (85-104); ABG TCO2 25 mEq/L (20-26)
[2018-04-12] MEDS: MetroNIDAZOLE 500 MG/100 ML 500 MG/100 ML BAG IVPB SCH ×3 (01:25→23:19)
[2018-04-12 01:57] LABS: Nucleated Red Blood Cells 1.2 /100 WBC (0)
[2018-04-12 01:59] LABS: Basophils % 0.1 %; Eosinophils # 0.2 K/mcL (0.0-0.6); Eosinophils % 0.6 %; Hematocrit 32.9 % (35.3-44.9); Immature Granulocytes % 3.1 % (0-4); Lymphocytes # 1.6 K/mcL (0.6-4.6); Lymphocytes % 3.9 %; Mean Corpuscular HGB Conc 27.4 g/dL (31.6-35.5); Mean Corpuscular Hemoglobin 22.6 pg (28.0-33.3); Mean Corpuscular Volume 82.5 fL (83.0-100.0); Monocytes # 1.1 K/mcL (0.0-1.3); Monocytes % 2.8 %; Platelet Count 692 K/mcL (140-400); Red Blood Count 3.99 M/mcL (3.82-4.97); Red Cell Distribution Width 22.7 % (11.5-14.5); Segmented Neutrophils % 89.5 %
[2018-04-12 02:01] LABS: Neutrophils # 35.7 K/mcL (1.6-8.9)
[2018-04-12 02:11] LABS: Calcium 9.4 mg/dL (8.6-10.3); Magnesium 2.4 mg/dL (1.6-2.6); Potassium 5.8 mEq/L (3.5-5.1)
[2018-04-12 02:34] LABS: Hypochromasia Present (Not Present); Macrocytosis Present (Not Present); Poikilocytosis 2+ (Not Present); Polychromasia 1+ (Not Present)
[2018-04-12 02:35] LABS: Large Platelets Present (Not Present); Platelet Clumps Few (Not Present); Target Cells 1+ (Not Present)
[2018-04-12 02:36] LABS: Anisocytosis 2+ (Not Present); Platelet Estimate Marked Increase (Normal); Toxic Granulation Present (Not Present)
[2018-04-12] MEDS ORDERED: 0.9 % Sodium Chloride 1,000 ML IVC ONE ×4 (02:40→08:02)
[2018-04-12] MEDS ORDERED: 0.9 % Sodium Chloride 1,000 ML ONE (02:44)
[2018-04-12] MEDS: Ipratropium/Albuterol Neb 3 ML IH SCH ×7 (04:21→23:40)
[2018-04-12 05:38] LABS: Red Cell Distribution Width 23.1 % (11.5-14.5)
[2018-04-12 05:39] LABS: Hematocrit 31.3 % (35.3-44.9); Hemoglobin 8.5 g/dL (11.5-15.4); Mean Corpuscular HGB Conc 27.2 g/dL (31.6-35.5); Mean Corpuscular Hemoglobin 22.5 pg (28.0-33.3); Mean Platelet Volume 12.5 fL (9.4-12.4); Platelet Count 606 K/mcL (140-400); Red Blood Count 3.77 M/mcL (3.82-4.97)
[2018-04-12] MEDS: Pantoprazole 40 MG VIAL IVP SCH ×2 (06:15→20:07)
[2018-04-12] MEDS ORDERED: *HR* Dextrose 50 % in Water (Syg) 50 ML SYRINGE IVP PRN (08:02)
[2018-04-12] MEDS ORDERED: Chloraseptic Spray 177 ML BOTTLE MM PRN (08:02)
[2018-04-12] MEDS ORDERED: Ondansetron 4 MG/2 ML VIAL IVP PRN (08:02)
[2018-04-12] MEDS ORDERED: Naloxone 0.4 MG/ML INJ IVP PRN (08:02)
[2018-04-12] MEDS ORDERED: Acetaminophen 325 MG TABLET PO PRN (08:02)
[2018-04-12] MEDS ORDERED: Saliva Stimulant 100ml BOTTLE PO PRN (08:02)
[2018-04-12] MEDS ORDERED: Dextrose Gel 15 GM/37.5 ML TUBE PO PRN ×2 (08:02)
[2018-04-12] MEDS ORDERED: Ipratropium/Albuterol Neb 3 ML IH PRN (08:02)
[2018-04-12] MEDS ORDERED: D5% in Water 1,000 ML IVC PRN (08:02)
[2018-04-12 08:07] LABS: Alanine Aminotransferase > 500 Units/L (7-52); Albumin 2.6 g/dL (3.5-5.7); Albumin/Globulin Ratio 0.8 (1.1-2.2); Alkaline Phosphatase 192 Units/L (34-104); Amylase 46 Units/L (29-103); Bilirubin,Direct 0.2 mg/dL (0.0-0.2); Bilirubin,Indirect 0.2 mg/dL (0.0-1.2); Bilirubin,Total 0.4 mg/dL (0.3-1.0); Globulin 3.3 g/dL (2.4-3.5); Lipase 34 Units/L (11-82); Total Protein 5.9 g/dL (6.4-8.9)
[2018-04-12 08:19] LABS: Aspartate Amino Transferase 2981 Units/L (13-39)
[2018-04-12 08:29] LABS: ABG Base Excess -1 mEq/L (-2 to 3); ABG HCO3 25 mEq/L (21-27); ABG Oxygen Saturation 100 % (95-98); ABG PCO2 49 mmHg (35-45); ABG PH 7.32 pH Units (7.32-7.45); ABG PO2 269 mmHg (85-104); ABG TCO2 27 mEq/L (20-26); Blood Gas Modality BiLevel; Blood Gas PEEP 5 cm H2O; Blood Gas Pressure Support 10 cm H2O
[2018-04-12 09:11] LABS: INR 3.9
[2018-04-12 09:17] LABS: Prothrombin Time 44.3 Seconds (9.4-12.1)
[2018-04-12] MEDS ORDERED: D5 IVC ONE ×2 (09:19→11:00)
[2018-04-12] MEDS ORDERED: ACETYLCYSTEINE IVC ONE ×2 (09:19→11:00)
[2018-04-12] MEDS ORDERED: WATER IVC ONE ×2 (09:19→11:00)
--- NOTE | 2018-04-12 09:49 | Pulmonology Consult Note ---
<Trish Lancaster S - Last Filed: 04/12/18 15:54> Date of Encounter: 04/12/18 Medications and Allergies Aspirin [Lo-Dose Aspirin EC] 81 mg PO DAILY 01/28/17 [History] Cholecalciferol (Vitamin D3) [Vitamin D3] 1,000 unit PO DAILY 01/28/17 [History] Clopidogrel [Plavix] 75 mg PO DAILY 01/28/17 [History] Furosemide [Lasix] 40 mg PO DAILY 01/28/17 [History] Guaifenesin [Mucinex] 600 mg PO BID PRN 01/28/17 [History] Insulin ASPART [Novolog Flexpen] 10 unit SQ TIDAC MDD plus sliding sale [History] Insulin Glargine,Hum.rec.anlog [Lantus Solostar] 25 unit SQ HS 01/28/17 [History ] Ipratropium/Albuterol Neb [Duoneb] 3 ml IH Q6HR PRN 01/28/17 [History] Lisinopril [Zestril] 20 mg PO DAILY 01/28/17 [History] Metformin HCl [Glucophage] 1,000 mg PO BID 01/28/17 [History] Metoprolol [Lopressor] 100 mg PO BID 01/28/17 [History] Ropinirole HCl [Requip] 0.25 - 0.5 mg PO HS 01/28/17 [History] Sertraline [Zoloft] 50 mg PO DAILY 01/28/17 [History] Tiotropium [Spiriva] 1 cap IH DAILY 01/28/17 [History] Acetaminophen [Tylenol] 500 mg PO Q4H PRN 03/26/18 [History] Amitriptyline [Elavil] 25 mg PO HS 03/26/18 [History] Amlodipine Besylate 10 mg PO DAILY 03/26/18 [History] Atorvastatin [Lipitor] 40 mg PO HS 03/26/18 [History] Gabapentin [Neurontin] 300 mg PO BID 03/26/18 [History] Ibuprofen [Ibu] 600 mg PO Q6H PRN 03/26/18 [History] Multivitamin [One Daily Multivitamin] 1 tab PO DAILY 03/26/18 [History] Pantoprazole Sodium [Protonix] 40 mg PO DAILY 03/26/18 [History] SitaGLIPtin [Januvia] 100 mg PO DAILY 03/26/18 [History] Albuterol Neb [Proventil Neb] 2.5 mg IH Q4-6H PRN 03/27/18 [History] Beclomethasone Dip 40mcg REDIH [Qvar 40 mcg REDIHALER] 1 puff IH BID 03/27/18 [ History] Calcium Carb/Magnesium Hydrox [Antacid Extra Strngth Tab Chew] 1 tab PO DAILY [History] 3 Allergy/AdvReac Type Severity Reaction Status Date / Time Iodinated Contrast- Oral and Allergy Anaphylaxis Verified 03/26/18 14:33 IV Dye [Iodinated Contrast Media - Oral and] All Systems: The remainder of the systems were reviewed and are negative Physical Examination Vital Signs: Vital Signs, Last 4 Hours Temp Pulse Resp BP Pulse Ox 04/12/18 14:11 97.8 F 79 26 98/44 97 04/12/18 13:37 97.2 F L 77 23 97/49 98 04/12/18 13:29 97.5 F L 75 22 87/33 95 04/12/18 13:14 96.7 F L 74 28 74/37 95 04/12/18 12:59 95.0 F L 77 26 107/52 99 04/12/18 12:52 95.0 F L 77 26 109/54 100 Results - Laboratory Findings CBC and BMP: 04/12/18 04:33 04/12/18 13:27 ABG ABG pH 7.32 pH Units (7.32-7.45) 04/12/18 08:25 ABG pCO2 49 mmHg (35-45) H 04/12/18 08:25 ABG pO2 269 mmHg (85-104) H 04/12/18 08:25 ABG O2 Saturation 100 % (95-98) H 04/12/18 08:25 PT/INR, D-dimer PT 44.3 Seconds (9.4-12.1) H* 04/12/18 08:52 Abnormal lab findings: Abnormal lab results WBC 37.1 K/mcL (4.3-11.1) H* 04/12/18 04:33 RBC 3.77 M/mcL (3.82-4.97) L 04/12/18 04:33 Hgb 8.5 g/dL (11.5-15.4) L 04/12/18 04:33 Hct 31.3 % (35.3-44.9) L 04/12/18 04:33 MCH 22.5 pg (28.0-33.3) L 04/12/18 04:33 MCHC 27.2 g/dL (31.6-35.5) L 04/12/18 04:33 RDW 23.1 % (11.5-14.5) H 04/12/18 04:33 Plt Count 606 K/mcL (140-400) H 04/12/18 04:33 MPV 12.5 fL (9.4-12.4) H 04/12/18 04:33 Neutrophils # 35.7 K/mcL (1.6-8.9) H 04/12/18 01:20 Nucleated RBCs/100 WBC 1.2 /100 WBC (0) H 04/12/18 01:20 Hyposegmented Neuts Present (Not Present) A 04/12/18 01:20 Reactive Lymphocytes Present (Not Present) A 03/31/18 05:48 Toxic Granulation Present (Not Present) A 04/12/18 01:20 Platelet Estimate Marked Increase (Normal) H 04/12/18 01:20 Clumped Platelets Few (Not Present) A 04/12/18 01:20 Large Platelets Present (Not Present) A 04/12/18 01:20 Polychromasia 1+ (Not Present) A 04/12/18 01:20 Hypochromasia Present (Not Present) A 04/12/18 01:20 Poikilocytosis 2+ (Not Present) A 04/12/18 01:20 Anisocytosis 2+ (Not Present) A 04/12/18 01:20 Microcytosis Present (Not Present) A 04/10/18 06:00 Macrocytosis Present (Not Present) A 04/12/18 01:20 Target Cells 1+ (Not Present) A 04/12/18 01:20 Tear Drop Cells 1+ (Not Present) A 04/04/18 05:46 PT 44.3 Seconds (9.4-12.1) H* 04/12/18 08:52 ABG pCO2 49 mmHg (35-45) H 04/12/18 08:25 ABG pO2 269 mmHg (85-104) H 04/12/18 08:25 ABG Total CO2 27 mEq/L (20-26) H 04/12/18 08:25 ABG O2 Saturation 100 % (95-98) H 04/12/18 08:25 Sodium 146 mEq/L (136-145) H 04/12/18 13:27 Potassium 5.4 mEq/L (3.5-5.1) H 04/12/18 13:27 Carbon Dioxide 21 mEq/L (23-29) L 04/12/18 13:27 BUN 27 mg/dL (8-23) H 04/12/18 13:27 Creatinine 1.56 mg/dL (0.60-1.20) H 04/12/18 13:27 Est GFR ( Amer) 40 (> 60) L 04/12/18 13:27 Est GFR (Non-Af Amer) 33 (> 60) L 04/12/18 13:27 Glucose 141 mg/dL (70-105) H 04/12/18 13:27 POC Glucose 109 mg/dL (70-99) H 04/12/18 05:06 Hemoglobin A1c 6.8 % (-5.6) H 03/26/18 06:14 Calculated Osmolality 309 (280-300) H 04/12/18 13:27 Lactic Acid > 10.0 mmol/L (0.5-2.2) H* 04/12/18 14:04 Iron < 10 mcg/dL (50-170) L 03/29/18 05:53 Transferrin 158 mg/dL (203-362) L 03/29/18 05:53 AST 2981 Units/L (13-39) H 04/12/18 04:33 ALT > 500 Units/L (7-52) H 04/12/18 04:33 Alkaline Phosphatase 192 Units/L (34-104) H 04/12/18 04:33 Troponin I 0.19 ng/mL (< 0.04) H* 03/25/18 13:33 B-Natriuretic Peptide 185 pg/mL (Less than 100) H 03/25/18 00:59 Serum Total Protein 5.9 g/dL (6.4-8.9) L 04/12/18 04:33 Albumin 2.6 g/dL (3.5-5.7) L 04/12/18 04:33 Albumin/Globulin Ratio 0.8 (1.1-2.2) L 04/12/18 04:33 Urine Clarity Hazy (Clear) A 04/11/18 20:37 Ur Leukocyte Esterase Small (Negative) H 04/11/18 20:37 Urine Microscopic RBC 3-5 per hpf (0-3) H 03/27/18 04:15 Urine Microscopic WBC 15-30 per hpf (0-3) H 04/11/18 20:37 Ur Squamous Epith Cells Many per lpf (None-Few) H 04/11/18 20:37 Urine Bacteria Many per hpf (None-Few) H 04/11/18 20:37 Urine Yeast Many per hpf (None Seen) H 04/11/18 20:37 Ur Culture Indicated? NO. (NO) A 04/11/18 20:37 Stl C. diff Tox B Gene Positive (Negative) A 03/26/18 20:10 Stl C. diff Tox A/B PCR See reflex test (Not detect) A 03/26/18 20:10 Vancomycin Trough 18 mcg/mL (5-10) H 04/08/18 10:00 EKTA Screen DETECTED (None Detected) A 04/05/18 14:52 EKTA Titer 1:160 (<1:80) H 04/05/18 14:52 Mitochondria M2 IgG Ab 45.3 Units (0.0-20.0) H 04/05/18 14:52 Mycoplasma pneumon IgG 0.48 U/L (<=0.09) H 04/05/18 12:12 - Microbiology Findings Microbiology Findings: Microbiology, Last 48 Hours 04/11/18 11:55 Blood Culture - Preliminary Peripheral Venipuncture Culture is incubating and being continuously monitored for growth. Final report to follow. 04/11/18 11:53 Blood Culture - Preliminary Peripheral Venipuncture Culture is incubating and being continuously monitored for growth. Final report to follow. - Clinical Findings Intake & Output: Intake & Output 04/11/18 04/12/18 04/12/18 23:59 07:59 15:59 Intake Total 100 / 100 1100 / 1100 939 / 939 Output Total 150 / 150 50 / 50 Balance 100 / 100 950 / 950 889 / 889 Weight 59.4 kg Consult Discharge Plan - Plan Referrals: Kathy Acosta DO [Resident] - - Attending Attestation I saw and evaluated this patient and my medical decision-making was reviewed with the Resident Physician. I agree with the documented findings, disposition and treatment plan as described except to the extent set forth below. We independently had [id number] contact with the patient I spent 35 minutes of critical care time in stabilizing vital organ function Patient seen and examined at bedside Labs, radiology, chart personally reviewed. Management was reviewed during multidisciplinary critical care rounds. DIETETICS DIRECTOR: Patient is conscious oriented 3 following commands Pulm: Patient has long-standing left lower lobe pneumonia with worsening V/Q mismatch complicated by a hydrostatic pulmonary edema cannot diuresed because of borderline blood pressure patient oxygenation and ventilation acceptable on BiPAP I expect patient to worse to get intubated at the moment her oxygenation and ventilation is stable. Cards: Patient blood pressure is borderline looks like septic shock doubt C. difficile is the source this and blood culture to broaden this antibiotics to Zosyn still she is getting worse we will broaden to vancomycin. We will trend troponins. FEN-GI: Nothing by mouth concern for ischemic bowel GI did a limited colonoscopy which did not show any evidence of ischemia in the sigmoid flexure splenic flexure, no evidence of pseudomembranous colitis. Still concern for ischemic bowel surgery on board. Shock liver with worsening transaminitis complicated by lactic acidosis. Renal: Acute kidney kidney injury worsening urine output, worsening hyperkalemia urgent need for dialysis starting on [facility] on board. ID: Patient had long-standing treatment for the severe C. difficile considering fecal transplant if that is extensive pseudomembranous colitis but with negative limited colonoscopy we held off to [facility] transfer. Broaden the coverage to Zosyn according to infectious disease recommendations if she continues to did not tolerate will add vancomycin to the regimen. Heme/Onc: Continue DVT scan to rule out any deep vein thrombosis ultrasound to rule out any hepatic portal vein thrombosis Endo: Glucose Monitored Integ/MSK: Skin Care per routine ICU Nursing Protocol to prevent ulcers. Lines: All lines examined without evidence of infection : Dispo: Family updated she is critically ill CODE: Full Code <Jose Guadalupe Koroma - Last Filed: 04/12/18 18:44> Date of Encounter: 04/12/18 Time of Encounter: 09:00 Assessment and Plan (1) Severe sepsis Current Visit: No Status: Acute Severe sepsis Patient's C. diff seems to be improving, sigmoidoscope did not show any evidence of pseudomembranes Patient has NIGEL, nephrology following WBC 44.8 > 37.1 Patient's temp improved BP 104/51 Blood cultures x2 03/25 negative Repeat blood cultures drawn 04/11 IR placed central line Patient started on 5% albumin infusion (2) C. difficile colitis Current Visit: Yes Status: Acute Severe Per records, patient is stooling several times per day Repeat CT abdomen (04/11) did not show bowel thickening or toxic megacolon GI performed sigmoidoscopy this morning which did not show evidence of pseudomembranes or ischemia Infectious disease following Continue vancomycin PO (day 16) Continue flagyl (day 2) (3) Pneumonia Current Visit: Yes Status: Acute Patient finished course of Zosyn Repeat CT shows evidence of multifocal PNA, greater in left lobe WBC acutely elevated at 44.8, down to 39 ID following Restarted patient on IV zosyn Initial blood cultures were negative, repeat blood cultures drawn 04/11 Patient currently on BIPAP with FiO2 50%, saturating at 97% Qualifiers: Pneumonia type: due to unspecified organism Laterality: bilateral Lung location: lower lobe of lung Qualified Code(s): J18.1 - Lobar pneumonia, unspecified organism (4) Elevated transaminase level Current Visit: Yes Status: Acute Acutely elevated AST of 2981 and ALT >500 Lactate of 9.3 > 8.9 > 10 Ordered RUQ US to rule out hepatic vein thrombosis INR of 3.9, given 4 bags of FFP, will recheck INR Given N-acetylcysteine Discontinued statin Hepatitis panel ordered (5) Acute kidney injury Current Visit: Yes Status: Acute Worsening Cr 1.28 > 1.56 Decreased urine output with hyperkalemia Nephrology consulted Will start renal replacement therapy (6) Lactic acidosis Current Visit: No Status: Acute Lactate elevated (04/11) to 9.3 > 8.9 > 10 Repeat lactate is 6.5 Continue to monitor May be due to hypovolemia (7) DVT prophylaxis Current Visit: No Status: Acute SCDs History of Present Illness Consult date: 04/12/18 Requesting physician: Trish Lancaster Chief complaint: Abdominal pain History of present illness: 63 F with PMHx of COPD on 3L home O2, CAD s/p CO with CABG, CHF, HTN presented with chest pain. Cardiology was consulted, decided no intervention necessary as inpatient and opted for outpatient stress test. Patient was also having abdominal pain and watery diarrhea. Sugery was consulted for possible bowel obstruction. They placed an NGT and patient was able to have BM, so no intervention needed. She tested positive for C. diff toxin A and was started on oral and IV vancomycin. CT abdomen showed mildly dilated loops of small bowel and was concerning for multifocal pneumonia so patient was started on Zosyn. Patient became acutely hypotensive on 04/11 with systolic BP in 70s and hypothermic with temp of 96.9. Patient had leukocytosis of 44.8, lactate was elevated at 9.3. 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 Patient was given 1L fluid bolus and transferred to ICU. Patient was alert and oriented in ICU. She was complaining of diffuse abdominal pain. Past Med Surg Social Fam HX - Past Medical History Medical history: cancer, CHF, COPD, coronary artery disease, CVA, DVT, diabetes , hyperlipidemia, hypertension, myocardial infarction Additional medical history: GALLSTONES, HERNIA Psychiatric history: anxiety, depression - Past Surgical History Surgical History: breast surgery, cancer surgery, carotid endarterectomy, coronary bypass (CABG), LE vascular intervention Additional surgical history: cervical cancer, breast cancer - Social History Smoking Status: Current every day smoker Packs per day: 1 Smokeless Tobacco Status: No Alcohol use: none Drug use: none - Family History Mother Living Status: Hx Family Cancer: Yes (carcinoma kidney(s)) Hx Family Endocrine Disorder: Yes (DM) All Systems: The remainder of the systems were reviewed and are negative Physical Examination Vital Signs: Vital Signs, Last 4 Hours Temp Pulse Resp BP Pulse Ox 04/12/18 09:00 71 23 95/59 92 04/12/18 07:52 98.3 F 70 17 106/55 99 04/12/18 06:28 96.9 F L 74 23 82/47 94 General appearance: alert, appears uncomfortable Eyes: nonicteric Effort: normal Auscultation: left: wheezes Cardiovascular: regular rate and rhythm Gastrointestinal: soft, tender, guarding Integumentary: normal Extremities: no cyanosis, other (right sided hemiplegia) anxious Results - Laboratory Findings CBC and BMP: 04/12/18 04:33 04/12/18 13:27 ABG ABG pH 7.32 pH Units (7.32-7.45) 04/12/18 08:25 ABG pCO2 49 mmHg (35-45) H 04/12/18 08:25 ABG pO2 269 mmHg (85-104) H 04/12/18 08:25 ABG O2 Saturation 100 % (95-98) H 04/12/18 08:25 PT/INR, D-dimer PT 44.3 Seconds (9.4-12.1) H* 04/12/18 08:52 Abnormal lab findings: Abnormal lab results WBC 37.1 K/mcL (4.3-11.1) H* 04/12/18 04:33 RBC 3.77 M/mcL (3.82-4.97) L 04/12/18 04:33 Hgb 8.5 g/dL (11.5-15.4) L 04/12/18 04:33 Hct 31.3 % (35.3-44.9) L 04/12/18 04:33 MCH 22.5 pg (28.0-33.3) L 04/12/18 04:33 MCHC 27.2 g/dL (31.6-35.5) L 04/12/18 04:33 RDW 23.1 % (11.5-14.5) H 04/12/18 04:33 Plt Count 606 K/mcL (140-400) H 04/12/18 04:33 MPV 12.5 fL (9.4-12.4) H 04/12/18 04:33 Neutrophils # 35.7 K/mcL (1.6-8.9) H 04/12/18 01:20 Nucleated RBCs/100 WBC 1.2 /100 WBC (0) H 04/12/18 01:20 Hyposegmented Neuts Present (Not Present) A 04/12/18 01:20 Reactive Lymphocytes Present (Not Present) A 03/31/18 05:48 Toxic Granulation Present (Not Present) A 04/12/18 01:20 Platelet Estimate Marked Increase (Normal) H 04/12/18 01:20 Clumped Platelets Few (Not Present) A 04/12/18 01:20 Large Platelets Present (Not Present) A 04/12/18 01:20 Polychromasia 1+ (Not Present) A 04/12/18 01:20 Hypochromasia Present (Not Present) A 04/12/18 01:20 Poikilocytosis 2+ (Not Present) A 04/12/18 01:20 Anisocytosis 2+ (Not Present) A 04/12/18 01:20 Microcytosis Present (Not Present) A 04/10/18 06:00 Macrocytosis Present (Not Present) A 04/12/18 01:20 Target Cells 1+ (Not Present) A 04/12/18 01:20 Tear Drop Cells 1+ (Not Present) A 04/04/18 05:46 PT 44.3 Seconds (9.4-12.1) H* 04/12/18 08:52 ABG pCO2 49 mmHg (35-45) H 04/12/18 08:25 ABG pO2 269 mmHg (85-104) H 04/12/18 08:25 ABG Total CO2 27 mEq/L (20-26) H 04/12/18 08:25 ABG O2 Saturation 100 % (95-98) H 04/12/18 08:25 Potassium 5.8 mEq/L (3.5-5.1) H 04/12/18 01:20 Carbon Dioxide 19 mEq/L (23-29) L 04/12/18 01:20 Creatinine 1.28 mg/dL (0.60-1.20) H 04/12/18 01:20 Est GFR ( Amer) 51 (> 60) L 04/12/18 01:20 Est GFR (Non-Af Amer) 42 (> 60) L 04/12/18 01:20 POC Glucose 109 mg/dL (70-99) H 04/12/18 05:06 Hemoglobin A1c 6.8 % (-5.6) H 03/26/18 06:14 Lactic Acid 8.9 mmol/L (0.5-2.2) H* 04/12/18 08:52 Iron < 10 mcg/dL (50-170) L 03/29/18 05:53 Transferrin 158 mg/dL (203-362) L 03/29/18 05:53 AST 2981 Units/L (13-39) H 04/12/18 04:33 ALT > 500 Units/L (7-52) H 04/12/18 04:33 Alkaline Phosphatase 192 Units/L (34-104) H 04/12/18 04:33 Troponin I 0.19 ng/mL (< 0.04) H* 03/25/18 13:33 B-Natriuretic Peptide 185 pg/mL (Less than 100) H 03/25/18 00:59 Serum Total Protein 5.9 g/dL (6.4-8.9) L 04/12/18 04:33 Albumin 2.6 g/dL (3.5-5.7) L 04/12/18 04:33 Albumin/Globulin Ratio 0.8 (1.1-2.2) L 04/12/18 04:33 Urine Clarity Hazy (Clear) A 04/11/18 20:37 Ur Leukocyte Esterase Small (Negative) H 04/11/18 20:37 Urine Microscopic RBC 3-5 per hpf (0-3) H 03/27/18 04:15 Urine Microscopic WBC 15-30 per hpf (0-3) H 04/11/18 20:37 Ur Squamous Epith Cells Many per lpf (None-Few) H 04/11/18 20:37 Urine Bacteria Many per hpf (None-Few) H 04/11/18 20:37 Urine Yeast Many per hpf (None Seen) H 04/11/18 20:37 Ur Culture Indicated? NO. (NO) A 04/11/18 20:37 Stl C. diff Tox B Gene Positive (Negative) A 03/26/18 20:10 Stl C. diff Tox A/B PCR See reflex test (Not detect) A 03/26/18 20:10 Vancomycin Trough 18 mcg/mL (5-10) H 04/08/18 10:00 EKTA Screen DETECTED (None Detected) A 04/05/18 14:52 EKTA Titer 1:160 (<1:80) H 04/05/18 14:52 Mitochondria M2 IgG Ab 45.3 Units (0.0-20.0) H 04/05/18 14:52 Mycoplasma pneumon IgG 0.48 U/L (<=0.09) H 04/05/18 12:12 - Microbiology Findings Microbiology Findings: Microbiology, Last 48 Hours 04/11/18 11:55 Blood Culture - Preliminary Peripheral Venipuncture Culture is incubating and being continuously monitored for growth. Final report to follow. 04/11/18 11:53 Blood Culture - Preliminary Peripheral Venipuncture Culture is incubating and being continuously monitored for growth. Final report to follow. - Clinical Findings Intake & Output: Intake & Output 04/11/18 04/12/18 04/12/18 23:59 07:59 15:59 Intake Total 100 / 100 1100 / 1100 Output Total 150 / 150 Balance 100 / 100 950 / 950 Weight 59.4 kg
--- NOTE | 2018-04-12 10:10 | Anesthesia Evaluation PreOp ---
Date of Encounter: 04/12/18 Time of Encounter: 10:10 - Past History Planned Operation: sigmoidoscopy Cardiac History: SD, CHF, Angina (has had angina this admission, possible ischemia secondary to anemia and intraabdominal processes), HTN, Hyperlipidemia , Cardiac Surgery (CABG x 5, year ?), Other (Periph. vascular disease with revascularization procedure. Hx of DVT) Pulmonary History: Smoker, COPD, Other (admitted with respiratory failure, exacerbation of COPD and pneumonia. Currently maintaining O2 saturations on Bipap. 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: CVA, Other (anxiety/depression) Other Medical History: Diabetes Type II, Other (MRSA) Anesthesia History: No Prior Anesthetic Complications, Past Anesthesia Alcohol Use: none Drug use: none Medications and Allergies Aspirin [Lo-Dose Aspirin EC] 81 mg PO DAILY 01/28/17 [History] Cholecalciferol (Vitamin D3) [Vitamin D3] 1,000 unit PO DAILY 01/28/17 [History] Clopidogrel [Plavix] 75 mg PO DAILY 01/28/17 [History] Furosemide [Lasix] 40 mg PO DAILY 01/28/17 [History] Guaifenesin [Mucinex] 600 mg PO BID PRN 01/28/17 [History] Insulin ASPART [Novolog Flexpen] 10 unit SQ TIDAC MDD plus sliding sale [History] Insulin Glargine,Hum.rec.anlog [Lantus Solostar] 25 unit SQ HS 01/28/17 [History ] Ipratropium/Albuterol Neb [Duoneb] 3 ml IH Q6HR PRN 01/28/17 [History] Lisinopril [Zestril] 20 mg PO DAILY 01/28/17 [History] Metformin HCl [Glucophage] 1,000 mg PO BID 01/28/17 [History] Metoprolol [Lopressor] 100 mg PO BID 01/28/17 [History] Ropinirole HCl [Requip] 0.25 - 0.5 mg PO HS 01/28/17 [History] Sertraline [Zoloft] 50 mg PO DAILY 01/28/17 [History] Tiotropium [Spiriva] 1 cap IH DAILY 01/28/17 [History] Acetaminophen [Tylenol] 500 mg PO Q4H PRN 03/26/18 [History] Amitriptyline [Elavil] 25 mg PO HS 03/26/18 [History] Amlodipine Besylate 10 mg PO DAILY 03/26/18 [History] Atorvastatin [Lipitor] 40 mg PO HS 03/26/18 [History] Gabapentin [Neurontin] 300 mg PO BID 03/26/18 [History] Ibuprofen [Ibu] 600 mg PO Q6H PRN 03/26/18 [History] Multivitamin [One Daily Multivitamin] 1 tab PO DAILY 03/26/18 [History] Pantoprazole Sodium [Protonix] 40 mg PO DAILY 03/26/18 [History] SitaGLIPtin [Januvia] 100 mg PO DAILY 03/26/18 [History] Albuterol Neb [Proventil Neb] 2.5 mg IH Q4-6H PRN 03/27/18 [History] Beclomethasone Dip 40mcg REDIH [Qvar 40 mcg REDIHALER] 1 puff IH BID 03/27/18 [ History] Calcium Carb/Magnesium Hydrox [Antacid Extra Strngth Tab Chew] 1 tab PO DAILY [History] 3 Allergy/AdvReac Type Severity Reaction Status Date / Time Iodinated Contrast- Oral and Allergy Anaphylaxis Verified 03/26/18 14:33 IV Dye [Iodinated Contrast Media - Oral and] - Meds/Allergy Pre-op Review Medications Reviewed: Yes Allergies Reviewed: Yes Beta Blockers on Current Med List: No Anesthesia Results - Labs 04/12/18 04:33 04/12/18 01:20 Laboratory Tests 04/12/18 04/12/18 04/12/18 01:20 01:20 08:25 WBC 39.9 H* Hgb 9.0 L Hct 32.9 L Plt Count 692 H PT ABG pH 7.32 ABG pCO2 49 H ABG pO2 269 H ABG HCO3 25 ABG Total CO2 27 H ABG O2 Saturation 100 H Sodium 140 Potassium 5.8 H Chloride 98 Carbon Dioxide 19 L BUN 21 Creatinine 1.28 H 04/12/18 08:52 WBC Hgb Hct Plt Count PT 44.3 H* ABG pH ABG pCO2 ABG pO2 ABG HCO3 ABG Total CO2 ABG O2 Saturation Sodium Potassium Chloride Carbon Dioxide BUN Creatinine - Imaging EKG: report reviewed (sinus rhthm) Anesthesia Exam Selected Entries 04/12/18 07:52 04/12/18 09:00 Temperature 98.3 F Pulse Rate 71 Respiratory Rate 23 Blood Pressure 95/59 O2 Sat by Pulse Oximetry 92 Oxygen Delivery Method BiPAP Weight: 59 kg BMI 21 NPO (# of Hours): over 8 hours - HEENT Pupil (Motor): Pupils equal Mallampati: II Teeth: Missing (I did not remove BIPAP mask for full evaluation but patient states she has very few teeth.) - Cardiac Rhythm: Regular Murmur: None - Pulmonary Breath Sounds: bilateral Rales, bilateral Rhonchi Respiratory Effort: Symmetrical Anesthesia Assess/Plan ASA Score: 4 Modified Jatinder Scale for Level of Consciousness: Drowsy, but responsive to commands Anesthetic Plan: MAC Monitoring Plan: Standard Monitors Recovery Plan: ICU (Patient is a high risk patient in intensive care unit with multiple severe medical problems. If we proceed with procedure patient will only be able to receive a minimum amount of sedation. I spoke with patient and she appears to understand.)
--- NOTE | 2018-04-12 10:38 | Infectious Disease Progress No ---
Date of Encounter: 04/12/18 Time of Encounter: 09:50 - Assessment and Plan (1) Sepsis Current Visit: No Status: Acute Severe sepsis with NIGEL and lactic acidosis and hypotension developed this morning. Etioloy unclear. The patient's C. diff seems to be improving and there is no colitis seen on CT of the abdomen and pelvis. Her LFTs are markedly elevated this morning so concern for additional intra-abdominal source. WBC is worse this morning. She continues to have some intermittent tachycardia. Hypothermia noted this morning. Blood cultures obtained 03/25/18 are negative 2 sets. Repeat blood cultures drawn 04/11/18 are pending x 2 sets. Qualifiers: Qualified Code(s): A41.9 - Sepsis, unspecified organism (2) Pneumonia Current Visit: Yes Status: Acute Location: Multifocal, greatest in the left lower lobe. Causative organism: Unclear. No evidence of aspiration noted on exam. Respiratory infectious panel was negative. Strep pneumococcal and legionella urinary antigens were negative. The patient has been able to provide us with 2 sputum cultures that are both negative. CT chest 04/08/18 showed improvement, but CT abdomen and pelvis 04/11/18 showed persistent LLL pneumonia. Completed 12 days of Zosyn and 6 days of Vanc. Re-start Zosyn 3.375 grams IV Q8H. Will avoid Vanc at this point due to the patient's NIGEL and previous MRSA screen was negative. Qualifiers: Qualified Code(s): J18.1 - Lobar pneumonia, unspecified organism (3) C. difficile colitis Current Visit: Yes Status: Acute Severe. Clinically, the patient's stools are more formed, but she is still stooling several times per day. Repeat CT of the abdomen and pelvis showed findings consistent with ileus and gastroenteritis on 04/08/[address] of the abdomen and pelvis 04/11/18 did not show any bowel thickening or toxic megacolon, but radiologist reports concern for ischemic bowel due to severe calcification of the mesenteric circulation. Continue Vancomycin 125mg PO QID. (day 16). Continue Flagyl 500 mg IV every 8 hours. (day 2) Duration of treatment depends on the clinical picture. We were planning to stop the antibiotic soon but clinically the patient is not improving. (4) Abdominal pain Current Visit: Yes Status: Acute Secondary to C diff colitis and gastroenteritis. GI consulted. Appreciate recommendations. LFTs this morning markedly elevated and lactic acid 9. CT abdomen and pelvis on 04/03/2018: Cholelithiasis, small amount of gas within the bladder. Decreased small bowel distention with small bowel wall thickening in the left upper quadrant; no toxic megacolon. Repeat CT of the abdomen and pelvis 04/11/18 showed findings concerning for ischemic bowel. GI planning for limited colonoscopy in the ICU later today. Await findings. Pain management per the primary team. Qualifiers: Qualified Code(s): R10.84 - Generalized abdominal pain (5) Rectal bleeding Current Visit: Yes Status: Acute Patient started having bloody stools overnight. Etiology unclear. Not sure that it is from the C. diff since her stools are formed. Hgb 8.5 this morning. GI re-consulted. Management and transfusion parameters per the primary team. (6) Elevated transaminase level Current Visit: Yes Status: Acute Etiology unclear. CT abdomen and pelvis negative for acute cholecystitis. Check hepatitis profile. GI consulted. Await recommendations. (7) Lactic acidosis Current Visit: No Status: Acute Etiology unclear. GI consulted. Await recommendations. (8) Acute kidney injury Current Visit: Yes Status: Acute Etiology unclear. Continue to trend. Consider nephrology to evaluate. - Subjective Interval history: Patient seen and examined. OVernight events noted. Patient became hypoxic and had severe abdominal pain. Lactic acid and LFTs elevated today. 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 Bowel ischemia should be considered although no evidence of bowel thickening. She became hypotensive as well. Transferred to ICU. Denies any fevers or chills or rigors. Denies chest pain, shortness of breath, or cough. Denies nausea, vomiting, diarrhea, or constipation. Denies any oral thrush or new skin lesions. She denies any urinary complaints. She states her appetite is okay. Chandra catheter remains patent. Per nursing documentation, stools are soft/formed. GI planning for limited C-scope later today. Infect Dis PN-Objective Data - Labs CBC & Chem 7: 04/12/18 04:33 04/12/18 17:14 Labs: Laboratory Results - last 24 hr 04/11/18 04/11/18 04/11/18 00:07 08:43 10:45 WBC 47.5 H* D RBC 3.73 L Hgb 8.4 L Hct 29.9 L MCV 80.2 L MCH 22.5 L MCHC 28.1 L RDW 22.6 H Plt Count 639 H MPV 12.4 Immature Gran % Seg Neutrophils % 85.0 Band Neutrophils % 1.0 Lymphocytes % 12.0 Monocytes % 2.0 Eosinophils % Basophils % Neutrophils # 40.9 H Lymphocytes # 5.7 H Monocytes # 1.0 Eosinophils # Basophils # Nucleated RBCs/100 WBC 0.4 H Hyposegmented Neuts Toxic Granulation Platelet Estimate Marked Increase H Clumped Platelets Large Platelets Polychromasia 1+ A Hypochromasia Present A Poikilocytosis Anisocytosis 3+ A Macrocytosis Target Cells 1+ A PT INR Sample Site ABG pH ABG pCO2 ABG pO2 ABG HCO3 ABG Total CO2 ABG O2 Saturation ABG Base Excess O2 Delivery Device Blood Gas Modality Inspired O2 PEEP Pressure Support Sodium Potassium Chloride Carbon Dioxide BUN Creatinine Est GFR ( Amer) Est GFR (Non-Af Amer) BUN/Creatinine Ratio Glucose POC Glucose 100 H 126 H Calculated Osmolality Lactic Acid Calcium Magnesium Total Bilirubin Direct Bilirubin Indirect Bilirubin AST ALT Alkaline Phosphatase Serum Total Protein Albumin Globulin Albumin/Globulin Ratio Amylase Lipase Random Cortisol Urine Color Urine Clarity Urine pH Ur Specific H[place]le Urine Protein Urine Glucose (UA) Urine Ketones Urine Blood Urine Nitrite Urine Bilirubin Urine Urobilinogen Ur Leukocyte Esterase Urine Microscopic WBC Ur Squamous Epith Cells Urine Bacteria Hyaline Casts Urine Yeast Ur Culture Indicated? Blood Type Antibody Screen 04/11/18 04/11/18 04/11/18 10:45 12:11 16:03 WBC RBC Hgb Hct MCV MCH MCHC RDW Plt Count MPV Immature Gran % Seg Neutrophils % Band Neutrophils % Lymphocytes % Monocytes % Eosinophils % Basophils % Neutrophils # Lymphocytes # Monocytes # Eosinophils # Basophils # Nucleated RBCs/100 WBC Hyposegmented Neuts Toxic Granulation Platelet Estimate Clumped Platelets Large Platelets Polychromasia Hypochromasia Poikilocytosis Anisocytosis Macrocytosis Target Cells PT INR Sample Site ABG pH ABG pCO2 ABG pO2 ABG HCO3 ABG Total CO2 ABG O2 Saturation ABG Base Excess O2 Delivery Device Blood Gas Modality Inspired O2 PEEP Pressure Support Sodium 142 Potassium 5.1 Chloride 100 Carbon Dioxide 27 BUN 16 Creatinine 0.79 Est GFR ( Amer) > 60 Est GFR (Non-Af Amer) > 60 BUN/Creatinine Ratio 20 Glucose 123 H POC Glucose 132 H 158 H Calculated Osmolality 297 Lactic Acid Calcium 9.2 Magnesium 2.0 Total Bilirubin Direct Bilirubin Indirect Bilirubin AST ALT Alkaline Phosphatase Serum Total Protein Albumin Globulin Albumin/Globulin Ratio Amylase Lipase Random Cortisol Urine Color Urine Clarity Urine pH Ur Specific H[place]le Urine Protein Urine Glucose (UA) Urine Ketones Urine Blood Urine Nitrite Urine Bilirubin Urine Urobilinogen Ur Leukocyte Esterase Urine Microscopic WBC Ur Squamous Epith Cells Urine Bacteria Hyaline Casts Urine Yeast Ur Culture Indicated? Blood Type Antibody Screen 04/11/18 04/11/18 04/11/18 19:48 20:13 20:37 WBC 44.8 H* RBC 3.71 L Hgb 8.6 L Hct 30.3 L MCV 81.7 L MCH 23.2 L MCHC 28.4 L RDW 22.7 H Plt Count 676 H MPV 12.8 H Immature Gran % 3.5 Seg Neutrophils % 88.3 Band Neutrophils % Lymphocytes % 5.3 Monocytes % 2.4 Eosinophils % 0.4 Basophils % 0.1 Neutrophils # 39.6 H Lymphocytes # 2.4 Monocytes # 1.1 Eosinophils # 0.2 Basophils # 0.0 Nucleated RBCs/100 WBC 0.8 H Hyposegmented Neuts Toxic Granulation Platelet Estimate Marked Increase H Clumped Platelets Large Platelets Polychromasia Hypochromasia Present A Poikilocytosis Anisocytosis 2+ A Macrocytosis Target Cells PT INR Sample Site ABG pH ABG pCO2 ABG pO2 ABG HCO3 ABG Total CO2 ABG O2 Saturation ABG Base Excess O2 Delivery Device Blood Gas Modality Inspired O2 PEEP Pressure Support Sodium Potassium Chloride Carbon Dioxide BUN Creatinine Est GFR ( Amer) Est GFR (Non-Af Amer) BUN/Creatinine Ratio Glucose POC Glucose 141 H Calculated Osmolality Lactic Acid Calcium Magnesium Total Bilirubin Direct Bilirubin Indirect Bilirubin AST ALT Alkaline Phosphatase Serum Total Protein Albumin Globulin Albumin/Globulin Ratio Amylase Lipase Random Cortisol Urine Color Dark Yellow Urine Clarity Hazy A Urine pH 5.0 Ur Specific [place] 1.018 Urine Protein Trace Urine Glucose (UA) Normal Urine Ketones Negative Urine Blood Negative Urine Nitrite Negative Urine Bilirubin Negative Urine Urobilinogen Normal Ur Leukocyte Esterase Small H Urine Microscopic WBC 15-30 H Ur Squamous Epith Cells Many H Urine Bacteria Many H Hyaline Casts Few Urine Yeast Many H Ur Culture Indicated? NO. A Blood Type Antibody Screen 04/11/18 04/12/1804/12/18 23:10 01:20 01:20 WBC 39.9 H* RBC 3.99 Hgb 9.0 L Hct 32.9 L MCV 82.5 L MCH 22.6 L MCHC 27.4 L RDW 22.7 H Plt Count 692 H MPV 13.0 H Immature Gran % 3.1 Seg Neutrophils % 89.5 Band Neutrophils % Lymphocytes % 3.9 Monocytes % 2.8 Eosinophils % 0.6 Basophils % 0.1 Neutrophils # 35.7 H Lymphocytes # 1.6 Monocytes # 1.1 Eosinophils # 0.2 Basophils # 0.0 Nucleated RBCs/100 WBC 1.2 H Hyposegmented Neuts Present A Toxic Granulation Present A Platelet Estimate Marked Increase H Clumped Platelets Few A Large Platelets Present A Polychromasia 1+ A Hypochromasia Present A Poikilocytosis 2+ A Anisocytosis 2+ A Macrocytosis Present A Target Cells 1+ A PT INR Sample Site L Radial ABG pH 7.38 ABG pCO2 39 ABG pO2 51 L ABG HCO3 23 ABG Total CO2 25 ABG O2 Saturation 86 L ABG Base Excess -2 O2 Delivery Device Oxy Mask Blood Gas Modality Inspired O2 15.0 PEEP Pressure Support Sodium 140 Potassium 5.8 H Chloride 98 Carbon Dioxide 19 L BUN 21 Creatinine 1.28 H Est GFR ( Amer) 51 L Est GFR (Non-Af Amer) 42 L BUN/Creatinine Ratio 16 Glucose 99 POC Glucose Calculated Osmolality 293 Lactic Acid Calcium 9.4 Magnesium 2.4 Total Bilirubin Direct Bilirubin Indirect Bilirubin AST ALT Alkaline Phosphatase Serum Total Protein Albumin Globulin Albumin/Globulin Ratio Amylase Lipase Random Cortisol Urine Color Urine Clarity Urine pH Ur Specific [place]le Urine Protein Urine Glucose (UA) Urine Ketones Urine Blood Urine Nitrite Urine Bilirubin Urine Urobilinogen Ur Leukocyte Esterase Urine Microscopic WBC Ur Squamous Epith Cells Urine Bacteria Hyaline Casts Urine Yeast Ur Culture Indicated? Blood Type Antibody Screen 04/12/18 04/12/18 04/12/18 04:33 04:33 04:33 WBC 37.1 H* RBC 3.77 L Hgb 8.5 L Hct 31.3 L MCV 83.0 MCH 22.5 L MCHC 27.2 L RDW 23.1 H Plt Count 606 H MPV 12.5 H Immature Gran % Seg Neutrophils % Band Neutrophils % Lymphocytes % Monocytes % Eosinophils % Basophils % Neutrophils # Lymphocytes # Monocytes # Eosinophils # Basophils # Nucleated RBCs/100 WBC Hyposegmented Neuts Toxic Granulation Platelet Estimate Clumped Platelets Large Platelets Polychromasia Hypochromasia Poikilocytosis Anisocytosis Macrocytosis Target Cells PT INR Sample Site ABG pH ABG pCO2 ABG pO2 ABG HCO3 ABG Total CO2 ABG O2 Saturation ABG Base Excess O2 Delivery Device Blood Gas Modality Inspired O2 PEEP Pressure Support Sodium Potassium Chloride Carbon Dioxide BUN Creatinine Est GFR ( Amer) Est GFR (Non-Af Amer) BUN/Creatinine Ratio Glucose POC Glucose Calculated Osmolality Lactic Acid 9.3 H* Calcium Magnesium Total Bilirubin Direct Bilirubin Indirect Bilirubin AST ALT Alkaline Phosphatase Serum Total Protein Albumin Globulin Albumin/Globulin Ratio Amylase Lipase Random Cortisol Urine Color Urine Clarity Urine pH Ur Specific [place] Urine Protein Urine Glucose (UA) Urine Ketones Urine Blood Urine Nitrite Urine Bilirubin Urine Urobilinogen Ur Leukocyte Esterase Urine Microscopic WBC Ur Squamous Epith Cells Urine Bacteria Hyaline Casts Urine Yeast Ur Culture Indicated? Blood Type O POSITIVE Antibody Screen NEGATIVE 04/12/18 04/12/18 04/12/18 04:33 05:06 08:25 WBC RBC Hgb Hct MCV MCH MCHC RDW Plt Count MPV Immature Gran % Seg Neutrophils % Band Neutrophils % Lymphocytes % Monocytes % Eosinophils % Basophils % Neutrophils # Lymphocytes # Monocytes # Eosinophils # Basophils # Nucleated RBCs/100 WBC Hyposegmented Neuts Toxic Granulation Platelet Estimate Clumped Platelets Large Platelets Polychromasia Hypochromasia Poikilocytosis Anisocytosis Macrocytosis Target Cells PT INR Sample Site ABG pH 7.32 ABG pCO2 49 H ABG pO2 269 H ABG HCO3 25 ABG Total CO2 27 H ABG O2 Saturation 100 H ABG Base Excess -1 O2 Delivery Device BiPAP Blood Gas Modality BiLevel Inspired O2 100.0 PEEP 5 Pressure Support 10 Sodium Potassium Chloride Carbon Dioxide BUN Creatinine Est GFR ( Amer) Est GFR (Non-Af Amer) BUN/Creatinine Ratio Glucose POC Glucose 109 H Calculated Osmolality Lactic Acid Calcium Magnesium Total Bilirubin 0.4 Direct Bilirubin 0.2 Indirect Bilirubin 0.2 AST 2981 H ALT > 500 H Alkaline Phosphatase 192 H Serum Total Protein 5.9 L Albumin 2.6 L Globulin 3.3 Albumin/Globulin Ratio 0.8 L Amylase 46 Lipase 34 Random Cortisol 30.7 Urine Color Urine Clarity Urine pH Ur Specific [place] Urine Protein Urine Glucose (UA) Urine Ketones Urine Blood Urine Nitrite Urine Bilirubin Urine Urobilinogen Ur Leukocyte Esterase Urine Microscopic WBC Ur Squamous Epith Cells Urine Bacteria Hyaline Casts Urine Yeast Ur Culture Indicated? Blood Type Antibody Screen 04/12/18 04/12/18 08:52 08:52 WBC RBC Hgb Hct MCV MCH MCHC RDW Plt Count MPV Immature Gran % Seg Neutrophils % Band Neutrophils % Lymphocytes % Monocytes % Eosinophils % Basophils % Neutrophils # Lymphocytes # Monocytes # Eosinophils # Basophils # Nucleated RBCs/100 WBC Hyposegmented Neuts Toxic Granulation Platelet Estimate Clumped Platelets Large Platelets Polychromasia Hypochromasia Poikilocytosis Anisocytosis Macrocytosis Target Cells PT 44.3 H* INR 3.9 Sample Site ABG pH ABG pCO2 ABG pO2 ABG HCO3 ABG Total CO2 ABG O2 Saturation ABG Base Excess O2 Delivery Device Blood Gas Modality Inspired O2 PEEP Pressure Support Sodium Potassium Chloride Carbon Dioxide BUN Creatinine Est GFR ( Amer) Est GFR (Non-Af Amer) BUN/Creatinine Ratio Glucose POC Glucose Calculated Osmolality Lactic Acid 8.9 H* Calcium Magnesium Total Bilirubin Direct Bilirubin Indirect Bilirubin AST ALT Alkaline Phosphatase Serum Total Protein Albumin Globulin Albumin/Globulin Ratio Amylase Lipase Random Cortisol Urine Color Urine Clarity Urine pH Ur Specific [place] Urine Protein Urine Glucose (UA) Urine Ketones Urine Blood Urine Nitrite Urine Bilirubin Urine Urobilinogen Ur Leukocyte Esterase Urine Microscopic WBC Ur Squamous Epith Cells Urine Bacteria Hyaline Casts Urine Yeast Ur Culture Indicated? Blood Type Antibody Screen Cultures: Cultures 04/11/18 11:55 Blood Culture - Preliminary Peripheral Venipuncture Culture is incubating and being continuously monitored for growth. Final report to follow. 04/11/18 11:53 Blood Culture - Preliminary Peripheral Venipuncture Culture is incubating and being continuously monitored for growth. Final report to follow. 04/05/18 13:38 Sputum Culture - Final Sputum 04/05/18 16:38 Sputum Culture - Final Sputum 03/27/18 04:15 Legionella Antigen - Final Urine,[place] Streptococcus pneumoniae Antigen (M - Final Serology 04/11/18 04/05/18 04/05/18 Range/Units 20:37 12:12 09:20 Urine Color Dark Yellow (Yellow) Urine Clarity Hazy A (Clear) Urine pH 5.0 (5.0-8.0) pH Units Ur Specific [place] 1.018 (1.010-1.025) Urine Protein Trace (Neg-Trace) mg/dL Urine Glucose (UA) Normal (Normal) mg/dL Urine Ketones Negative (Negative) mg/dL Urine Blood Negative (Negative) Urine Nitrite Negative (Negative) Urine Bilirubin Negative (Negative) Urine Urobilinogen Normal (Normal) mg/dL Ur Leukocyte Esterase Small H (Negative) Urine Microscopic RBC (0-3) per hpf Urine Microscopic WBC 15-30 H (0-3) per hpf Ur Squamous Epith Cells Many H (None-Few) per lpf Urine Bacteria Many H (None-Few) per hpf Hyaline Casts Few (None-Few) per lpf Urine Yeast Many H Ur Culture Indicated? NO. A (NO) Nasal Screen MRSA (PCR) Negative (Negative) Stl C. cayetanensis PCR (Not detect) Stool Rotavirus A PCR (Not detect) Stl Adenov F 40/41 PCR (Not detect) Stool Astrovirus (PCR) (Not detect) Stool Campylobacter PCR (Not detect) Stl C. diff Tox B Gene (Negative) Stl C. diff Tox A/B PCR (Not detect) Stool Cryptosporidium PCR (Not detect) Stl Sh Tox Pr E STEC PCR (Not detect) Stool E coli O157 PCR (Not detect) Stl Enterotoxigenic E PCR (Not detect) Stool EPEC (PCR) (Not detect) Stool EAEC (PCR) (Not detect) Stl E. histolytica PCR (Not detect) Stool Giardia Lamblia PCR (Not detect) Stool Salmonella PCR (Not detect) Stool Sapovirus (PCR) (Not detect) Stl P. shigelloides PCR (Not detect) Stl Shigella/EIEC PCR (Not detect) St Y.enterocolitica PCR (Not detect) Stool Vibrio (PCR) (Not detect) Stl Vibrio cholerae PCR (Not detect) Stl Norovirus GI/GII PCR (Not detect) Stl GI Panel (PCR) Com Chlamy pneumoniae PCR (Not Detect) Adenovirus (PCR) (Not Detect) B. pertussis DNA (PCR) (Not Detect) B.parapertussis DNA PCR (Not Detect) Coronavirus OC43 (PCR) (Not Detect) Coronavirus HKU1 (PCR) (Not Detect) Coronavirus 229E (PCR) (Not Detect) Coronavirus NL63 (PCR) (Not Detect) Human Metapneumovir PCR (Not Detect) Influenza A (H1) PCR (Not Detect) Influ A (H1N1/09) PCR (Not Detect) Influenza A (H3) PCR (Not Detect) Influenza A Untype (PCR) (Not Detect) Influenza Type B (PCR) (Not Detect) Mycoplasma pneumon IgG 0.48 H (<=0.09) U/L Mycoplasma pneumon IgM 0.13 (<=0.76) U/L M.pneumoniae DNA (PCR) (Not Detect) Parainfluenza 1 (PCR) (Not Detect) Parainfluenza 2 (PCR) (Not Detect) Parainfluenza 3 (PCR) (Not Detect) Parainfluenza 4 (PCR) (Not Detect) RSV (PCR) (Not Detect) Entero/Rhino (PCR) (Not Detect) 04/05/18 03/29/18 03/27/18 Range/Units 09:20 08:40 04:15 Urine Color Yellow (Yellow) Urine Clarity Clear (Clear) Urine pH 5.5 (5.0-8.0) pH Units Ur Specific [place] 1.023 (1.010-1.025) Urine Protein Negative (Neg-Trace) mg/dL Urine Glucose (UA) Normal (Normal) mg/dL Urine Ketones Negative (Negative) mg/dL Urine Blood Trace H (Negative) Urine Nitrite Negative (Negative) Urine Bilirubin Negative (Negative) Urine Urobilinogen Normal (Normal) mg/dL Ur Leukocyte Esterase Small H (Negative) Urine Microscopic RBC 3-5 H (0-3) per hpf Urine Microscopic WBC 5-15 H (0-3) per hpf Ur Squamous Epith Cells Many H (None-Few) per lpf Urine Bacteria None Seen (None-Few) per hpf Hyaline Casts Few (None-Few) per lpf Urine Yeast Test Not Performed Ur Culture Indicated? NO. A (NO) Nasal Screen MRSA (PCR) (Negative) Stl C. cayetanensis PCR (Not detect) Stool Rotavirus A PCR (Not detect) Stl Adenov F 40/41 PCR (Not detect) Stool Astrovirus (PCR) (Not detect) Stool Campylobacter PCR (Not detect) Stl C. diff Tox B Gene (Negative) Stl C. diff Tox A/B PCR (Not detect) Stool Cryptosporidium PCR (Not detect) Stl Sh Tox Pr E STEC PCR (Not detect) Stool E coli O157 PCR (Not detect) Stl Enterotoxigenic E PCR (Not detect) Stool EPEC (PCR) (Not detect) Stool EAEC (PCR) (Not detect) Stl E. histolytica PCR (Not detect) Stool Giardia Lamblia PCR (Not detect) Stool Salmonella PCR (Not detect) Stool Sapovirus (PCR) (Not detect) Stl P. shigelloides PCR (Not detect) Stl Shigella/EIEC PCR (Not detect) St Y.enterocolitica PCR (Not detect) Stool Vibrio (PCR) (Not detect) Stl Vibrio cholerae PCR (Not detect) Stl Norovirus GI/GII PCR (Not detect) Stl GI Panel (PCR) Com Chlamy pneumoniae PCR Not Detected (Not Detect) Adenovirus (PCR) Not Detected (Not Detect) B. pertussis DNA (PCR) Not Detected (Not Detect) B.parapertussis DNA PCR Not Detected (Not Detect) Coronavirus OC43 (PCR) Not Detected (Not Detect) Coronavirus HKU1 (PCR) Not Detected (Not Detect) Coronavirus 229E (PCR) Not Detected (Not Detect) Coronavirus NL63 (PCR) Not Detected (Not Detect) Human Metapneumovir PCR Not Detected (Not Detect) Influenza A (H1) PCR Not Detected (Not Detect) Influ A (H1N1/09) PCR Not Detected (Not Detect) Influenza A (H3) PCR Not Detected (Not Detect) Influenza A Untype (PCR) Not Detected (Not Detect) Influenza Type B (PCR) Not Detected (Not Detect) Mycoplasma pneumon IgG 0.30 H (<=0.09) U/L Mycoplasma pneumon IgM 0.06 (<=0.76) U/L M.pneumoniae DNA (PCR) Not Detected (Not Detect) Parainfluenza 1 (PCR) Not Detected (Not Detect) Parainfluenza 2 (PCR) Not Detected (Not Detect) Parainfluenza 3 (PCR) Not Detected (Not Detect) Parainfluenza 4 (PCR) Not Detected (Not Detect) RSV (PCR) Not Detected (Not Detect) Entero/Rhino (PCR) Not Detected (Not Detect) 03/26/18 03/26/18 Range/Units 20:10 20:10 Urine Color (Yellow) Urine Clarity (Clear) Urine pH (5.0-8.0) pH Units Ur Specific [place] (1.010-1.025) Urine Protein (Neg-Trace) mg/dL Urine Glucose (UA) (Normal) mg/dL Urine Ketones (Negative) mg/dL Urine Blood (Negative) Urine Nitrite (Negative) Urine Bilirubin (Negative) Urine Urobilinogen (Normal) mg/dL Ur Leukocyte Esterase (Negative) Urine Microscopic RBC (0-3) per hpf Urine Microscopic WBC (0-3) per hpf Ur Squamous Epith Cells (None-Few) per lpf Urine Bacteria (None-Few) per hpf Hyaline Casts (None-Few) per lpf Urine Yeast Ur Culture Indicated? (NO) Nasal Screen MRSA (PCR) (Negative) Stl C. cayetanensis PCR Not detected (Not detect) Stool Rotavirus A PCR Not detected (Not detect) Stl Adenov F 40/41 PCR Not detected (Not detect) Stool Astrovirus (PCR) Not detected (Not detect) Stool Campylobacter PCR Not detected (Not detect) Stl C. diff Tox B Gene Positive A (Negative) Stl C. diff Tox A/B PCR See reflex test A (Not detect) Stool Cryptosporidium PCR Not detected (Not detect) Stl Sh Tox Pr E STEC PCR Not detected (Not detect) Stool E coli O157 PCR Not detected (Not detect) Stl Enterotoxigenic E PCR Not detected (Not detect) Stool EPEC (PCR) Not detected (Not detect) Stool EAEC (PCR) Not detected (Not detect) Stl E. histolytica PCR Not detected (Not detect) Stool Giardia Lamblia PCR Not detected (Not detect) Stool Salmonella PCR Not detected (Not detect) Stool Sapovirus (PCR) Not detected (Not detect) Stl P. shigelloides PCR Not detected (Not detect) Stl Shigella/EIEC PCR Not detected (Not detect) St Y.enterocolitica PCR Not detected (Not detect) Stool Vibrio (PCR) Not detected (Not detect) Stl Vibrio cholerae PCR Not detected (Not detect) Stl Norovirus GI/GII PCR Not detected (Not detect) Stl GI Panel (PCR) Com See below Chlamy pneumoniae PCR (Not Detect) Adenovirus (PCR) (Not Detect) B. pertussis DNA (PCR) (Not Detect) B.parapertussis DNA PCR (Not Detect) Coronavirus OC43 (PCR) (Not Detect) Coronavirus HKU1 (PCR) (Not Detect) Coronavirus 229E (PCR) (Not Detect) Coronavirus NL63 (PCR) (Not Detect) Human Metapneumovir PCR (Not Detect) Influenza A (H1) PCR (Not Detect) Influ A (H1N1/09) PCR (Not Detect) Influenza A (H3) PCR (Not Detect) Influenza A Untype (PCR) (Not Detect) Influenza Type B (PCR) (Not Detect) Mycoplasma pneumon IgG (<=0.09) U/L Mycoplasma pneumon IgM (<=0.76) U/L M.pneumoniae DNA (PCR) (Not Detect) Parainfluenza 1 (PCR) (Not Detect) Parainfluenza 2 (PCR) (Not Detect) Parainfluenza 3 (PCR) (Not Detect) Parainfluenza 4 (PCR) (Not Detect) RSV (PCR) (Not Detect) Entero/Rhino (PCR) (Not Detect) - Impressions Impressions Chest X-Ray 04/11/18 13:01 IMPRESSION: No significant change in the appearance of the chest over the past 3 days with patchy left-sided airspace disease consistent with pneumonia. D/ / Conrad Aguero MD / Conrad Aguero MD Interpreting Provider: Conrad Aguero MD Abdomen/Pelvis CT 04/11/18 15:17 IMPRESSION: 1. Left lower lobe pneumonia. 2. Cholelithiasis but no acute cholecystitis. 3. 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 Bowel ischemia should be considered although no evidence of bowel thickening. 4. Mild fat containing ventral hernia. D/ / 04/11/2018 18:14:57 Bren Riojas MD / dayo Interpreting Provider: Bren Riojas MD Exam - Constitutional Vitals: Temp Pulse Resp BP Pulse Ox 98.3 F 71 23 95/59 92 04/12/18 07:52 04/12/18 09:00 04/12/18 09:00 04/12/18 09:00 04/12/18 09:00 General appearance: average body habitus, cooperative, no acute distress - Head Head exam: Present: atraumatic, normal inspection, normocephalic - Eye Eye exam: Present: EOMI, normal appearance, PERRL Pupils: Present: normal accommodation - ENT ENT exam: Present: mucous membranes moist - Neck Neck exam: Present: normal inspection - Respiratory Respiratory exam: Present: CTAB. Absent: rales, respiratory distress, rhonchi, wheezes - Cardiovascular Cardiovascular exam: Present: RRR, +S1, +S2 - GI/Abdominal GI/Abdominal exam: Present: hypoactive bowel sounds, soft, tenderness ( Genrealized, worse RUQ). Absent: distended Additional comments: Chandra catheter patent draining clear yellow urine. - Extremities Exam Extremities exam: Present: normal inspection. Absent: joint swelling, pedal edema, tenderness - Neurological Exam Neurological exam: Present: alert, oriented X3. Absent: no focal deficits ( Paralysis noted to the RLE with markedly diminished movement/sensation noted to the RUE.) - Psychiatric Psychiatric exam: Present: normal affect, normal mood - Skin Skin exam: Present: dry, intact, normal color, warm Consult Discharge Plan - Plan Referrals: Kathy Acosta DO [Resident] - - Attending Attestation I examined this patient and my medical decision-making was reviewed with the Resident Physician. I agree with the documented findings, disposition and treatment plan as described except to the extent set forth below.
[2018-04-12] MEDS ORDERED: 0.9 % Sodium Chloride 500 ML ONE (10:45)
[2018-04-12] MEDS: Beclomethasone 80mcg MDI IH SCH ×3 (11:15→20:14)
[2018-04-12] MEDS: Tiotropium 18 MCG inhalation IH SCH (11:16)
[2018-04-12 11:40] LABS: Calcium 8.7 mg/dL (8.6-10.3); Potassium 5.9 mEq/L (3.5-5.1)
[2018-04-12] MEDS ORDERED: *HR* FentaNYL (PF) 100 MCG/2 ML VIAL ONE (12:04)
[2018-04-12] MEDS ORDERED: *HR* FentaNYL (PF) 100 MCG/2 ML VIAL IVP ONE (12:06)
[2018-04-12] MEDS ORDERED: Ondansetron 4 MG/2 ML VIAL ONE (12:23)
[2018-04-12] MEDS ORDERED: Insulin Human Regular 10 UNIT in 0.9 % Sodium Chloride 10 ML IV ONE (12:57)
[2018-04-12] MEDS ORDERED: Calcium Gluconate 2,000 MG in 0.9 % Sodium Chloride 100 ML IVPB ONE (13:00)
[2018-04-12] MEDS ORDERED: Meropenem 1,000 MG in Water for inj. (sterile) 20 ML 10 ML IVP SCH (13:00)
[2018-04-12] MEDS: Magnesium Oxide 400 MG TABLET PO SCH (13:06)
[2018-04-12] MEDS: Lactobacillus 1 EACH CAP.SPRINK PO SCH ×2 (13:06→21:06)
[2018-04-12] MEDS: Gabapentin 100 MG CAPSULE PO SCH ×3 (13:06→21:06)
[2018-04-12] MEDS: Vancomycin Oral Soln 125 MG/2.5 ML UDC PO SCH ×4 (13:06→20:04)
[2018-04-12] MEDS: Aspirin 81 MG TAB.CHEW PO SCH (13:06)
[2018-04-12] MEDS: predniSONE 20 MG TABLET PO SCH (13:06)
[2018-04-12] MEDS: Insulin LISPRO 300 UNITS/3 ML VIAL SQ SCH ×2 (13:07→20:05)
[2018-04-12] MEDS: Sucralfate 1 GM TABLET PO SCH ×2 (13:45→16:44)
[2018-04-12] MEDS ORDERED: *HR* Dextrose 50 % in Water (Syg) 50 ML SYRINGE IVP ONE (14:07)
[2018-04-12] MEDS: Dexmedetomidine HCl 400 MCG/100 ML MLS IVC SCH ×2 (14:12→23:18)
[2018-04-12 14:49] LABS: Calcium 8.6 mg/dL (8.6-10.3); Potassium 5.4 mEq/L (3.5-5.1)
[2018-04-12] MEDS ORDERED: WATER IVC SCH (15:00)
[2018-04-12] MEDS ORDERED: D5 IVC SCH (15:00)
[2018-04-12] MEDS ORDERED: ACETYLCYSTEINE IVC SCH (15:00)
[2018-04-12] MEDS ORDERED: *HR* Heparin 5,000 UNIT/ML VIAL ONE (15:51)
--- NOTE | 2018-04-12 15:53 | IR Procedure Note ---
Date of procedure: 04/12/18 Consent Obtained: Verbal consent Timeout: Correct patient and procedure verified, Correct site verified, Time out performed, Skin prep completed Local anesthetic: Lidocaine 1% Indications: Renal insufficiency Procedure Performed: Temp HD catheter placement Was there an junior administrative assistant present: No Site/Technique: First tried R groin, poor access. See report. RIJV used. Results/Findings: Pt initially didn't want in neck. Estimated blood loss (cc): 3 Complications: None; Tolerated procedure well Post Procedure Treatment Plan: Monitoring in the unit. Specimen: N/a
[2018-04-12] MEDS: Norepinephrine 4 MG in D5% in Water 250 ML IVC SCH (16:32)
[2018-04-12] MEDS: Piperacillin/Tazobactam 3.375 GM in 0.9 % Sodium Chloride Mini Bag 100 ML IVPB SCH ×2 (16:35→23:19)
--- NOTE | 2018-04-12 16:49 | Nephrology Consult Note ---
Date of Encounter: 04/12/18 Time of Encounter: 16:00 Assessment and Plan (1) Acute kidney injury Current Visit: Yes Status: Acute Worsening SCr with rising lactate, LFTs and decreased UOP with associate hyperkalemia with septic shock Will proceed with [employer]; CVVHDF with no UF planned just clearance Avoid nephrotoxins if possible Pressor support per primary team Fluid repletion as needed, plan to maintain positive to even fluid balance (2) Acute and chronic respiratory failure with hypoxia Current Visit: Yes Status: Acute Per primary team (3) Anemia Current Visit: Yes Status: Acute Hgb noted initially at 9 but dropping down to 7.2 Transfuse parameters per primary team, GI on board Qualifiers: Anemia type: unspecified type Qualified Code(s): D64.9 - Anemia, unspecified (4) C. difficile colitis Current Visit: Yes Status: Acute Per primary, GI and ID teams History of Present Illness - Reason for Consult Consult date: 04/12/18 Acute Kidney Injury Requesting physician: Keven Ng - History of Present Illness 63 y o female with PMH of COPD on home oxygen, CHF, DM, CAD s/p CABG and HTN admitted 03/25/18 for chest pain with cardio consulted with no intrevention inpatient recommended. She was also being treated for UTI, PNA and c.diff colitis. Pt was transferred to the ICU 04/11 after becoming acutely hypotesive with noted elevated WBC at 44. Renal consulted for hyperkalemia, worsening SCr and decreased UOP. Potassium down to 5.5 from a peak of 5.9. Lactate >10 along with abnormal LFTs. SCr noted at 1.56 which has doubled from 0.79 since the day prior. Pt seen and examined with no family present with face mask on complaining of back pain. Pt is not a great historian due to pain but does agree to [employer] [facility]GE at this time. Past Med Surg Social Fam HX - Past Medical History Medical history: cancer, CHF, COPD, coronary artery disease, CVA, DVT, diabetes , hyperlipidemia, hypertension, myocardial infarction Additional medical history: GALLSTONES, HERNIA Psychiatric history: anxiety, depression - Past Surgical History Surgical History: breast surgery, cancer surgery, carotid endarterectomy, coronary bypass (CABG), LE vascular intervention Additional surgical history: cervical cancer, breast cancer - Social History Smoking Status: Current every day smoker Packs per day: 1 Smokeless Tobacco Status: No Alcohol use: none Drug use: none - Family History Mother Living Status: Hx Family Cancer: Yes (carcinoma kidney(s)) Hx Family Endocrine Disorder: Yes (DM) Medications and Allergies Aspirin [Lo-Dose Aspirin EC] 81 mg PO DAILY 01/28/17 [History] Cholecalciferol (Vitamin D3) [Vitamin D3] 1,000 unit PO DAILY 01/28/17 [History] Clopidogrel [Plavix] 75 mg PO DAILY 01/28/17 [History] Furosemide [Lasix] 40 mg PO DAILY 01/28/17 [History] Guaifenesin [Mucinex] 600 mg PO BID PRN 01/28/17 [History] Insulin ASPART [Novolog Flexpen] 10 unit SQ TIDAC MDD plus sliding sale [History] Insulin Glargine,Hum.rec.anlog [Lantus Solostar] 25 unit SQ HS 01/28/17 [History ] Ipratropium/Albuterol Neb [Duoneb] 3 ml IH Q6HR PRN 01/28/17 [History] Lisinopril [Zestril] 20 mg PO DAILY 01/28/17 [History] Metformin HCl [Glucophage] 1,000 mg PO BID 01/28/17 [History] Metoprolol [Lopressor] 100 mg PO BID 01/28/17 [History] Ropinirole HCl [Requip] 0.25 - 0.5 mg PO HS 01/28/17 [History] Sertraline [Zoloft] 50 mg PO DAILY 01/28/17 [History] Tiotropium [Spiriva] 1 cap IH DAILY 01/28/17 [History] Acetaminophen [Tylenol] 500 mg PO Q4H PRN 03/26/18 [History] Amitriptyline [Elavil] 25 mg PO HS 03/26/18 [History] Amlodipine Besylate 10 mg PO DAILY 03/26/18 [History] Atorvastatin [Lipitor] 40 mg PO HS 03/26/18 [History] Gabapentin [Neurontin] 300 mg PO BID 03/26/18 [History] Ibuprofen [Ibu] 600 mg PO Q6H PRN 03/26/18 [History] Multivitamin [One Daily Multivitamin] 1 tab PO DAILY 03/26/18 [History] Pantoprazole Sodium [Protonix] 40 mg PO DAILY 03/26/18 [History] SitaGLIPtin [Januvia] 100 mg PO DAILY 03/26/18 [History] Albuterol Neb [Proventil Neb] 2.5 mg IH Q4-6H PRN 03/27/18 [History] Beclomethasone Dip 40mcg REDIH [Qvar 40 mcg REDIHALER] 1 puff IH BID 03/27/18 [ History] Calcium Carb/Magnesium Hydrox [Antacid Extra Strngth Tab Chew] 1 tab PO DAILY [History] 3 Allergy/AdvReac Type Severity Reaction Status Date / Time Iodinated Contrast- Oral and Allergy Anaphylaxis Verified 03/26/18 14:33 IV Dye [Iodinated Contrast Media - Oral and] Review of Systems All Systems review (narrative): The rest of the systems are negative Constitutional: weakness (admits) Cardiovascular: chest pain (denies) Respiratory: dyspnea (denies) Gastrointestinal: loose stools (admits) Exam - Vital Signs Vital signs: Initial Vital Signs Temp Pulse Resp BP Pulse Ox 98.9 F 92 20 116/59 92 03/25/18 00:23 03/25/18 00:23 03/25/18 00:23 03/25/18 00:23 03/25/18 00:23 Vital Signs - Last 8 Hours Temp Pulse Resp BP Pulse Ox 04/12/18 16:15 18 62/49 100 04/12/18 14:11 97.8 F 79 26 98/44 97 04/12/18 13:37 97.2 F L 77 23 97/49 98 04/12/18 13:29 97.5 F L 75 22 87/33 95 04/12/18 13:14 96.7 F L 74 28 74/37 95 04/12/18 12:59 95.0 F L 77 26 107/52 99 04/12/18 12:52 95.0 F L 77 26 109/54 100 04/12/18 11:21 97.5 F L 69 27 121/55 95 04/12/18 11:06 97.5 F L 67 23 101/58 96 04/12/18 09:00 71 23 95/59 92 Intake and Output 04/12/18 04/12/18 04/12/18 07:59 15:59 23:59 Intake Total 1100 / 1100 1189 / 1189 Output Total 150 / 150 50 / 50 Balance 950 / 950 1139 / 1139 Intake: IV Fluids 1100 / 1100 250 / 250 0.9 % Sodium Chloride 1,000 ML 1000 / 1000 @ 999 mls/hr IVC .Q1H1M [facility] Rx# :[id number] ALBURX 5% 12.5 gm In 250 ml @ 250 / 250 60 mls/hr IVC .Q4H10M [facility] Rx#: [id number] Flagyl Premix 500 MG/100 ML 500 100 / 100 mg In 100 ml @ 100 mls/hr IVPB Q8HR [facility] Rx#:[id number] Oral 0 / 0 Blood Product 939 / 939 Plasma Unit [id number] 589 / 589 Plasma Unit [id number] 0 / 0 Plasma Unit [id number] 350 / 350 Output: Catheter 150 / 150 50 / 50 Other: Stool Size Large Stool Consistency loose soft Stool Color Brown Blood Tinged # Bowel Movement Diapers 1 Weight 59.4 kg Blood Glucose* 93 75 Patient Weight 04/12/18 23:59 Weight 59.4 kg - General Appearance General appearance: moderate distress (due to pain), chronically ill EENT: ATNC, mucous membranes dry Neck: no JVD, supple Respiratory: course breath sounds Cardiology: edema (trace), normal S1, normal S2 - Dialysis Access Dialysis Vascular Access: Venous Catheter (temp IJ) Gastrointestinal: tenderness (diffuse), no guarding Integumentary: warm and dry Neurologic: no focal deficit Musculoskeletal: no deformities Psychiatric: mood/affect appropriate, cooperative Results - Lab Results 04/13/18 03:20 04/13/18 03:20 Most recent lab results ABG pH 7.32 pH Units (7.32-7.45) 04/12/18 08:25 ABG pCO2 49 mmHg (35-45) H 04/12/18 08:25 ABG pO2 269 mmHg (85-104) H 04/12/18 08:25 ABG HCO3 25 mEq/L (21-27) 04/12/18 08:25 ABG O2 Saturation 100 % (95-98) H 04/12/18 08:25 Calcium 8.6 mg/dL (8.6-10.3) 04/12/18 13:27 Magnesium 2.4 mg/dL (1.6-2.6) 04/12/18 01:20 Consult Discharge Plan - Plan Referrals: Kathy Acosta DO [Resident] -
[2018-04-12] MEDS ORDERED: 0.9 % Sodium Chloride 250 ML ONE (17:18)
[2018-04-12 17:27] LABS: VBG Ionized Calcium 1.18 mmol/L (1.15-1.35)
[2018-04-12 17:46] LABS: Potassium 4.3 mEq/L (3.5-5.1)
[2018-04-12 17:48] LABS: Magnesium 2.2 mg/dL (1.6-2.6)
[2018-04-12] MEDS ORDERED: *HR* Alteplase (Cathflo) 2 MG VIAL IVP PRN (17:48)
[2018-04-12] MEDS ORDERED: *HR* Heparin 5,000 UNIT/ML VIAL IV PRN (17:48)
[2018-04-12] MEDS ORDERED: Calcium Gluconate 2,000 MG in 0.9 % Sodium Chloride 100 ML IVPB PRN (17:48)
[2018-04-12 17:51] LABS: Troponin I 0.08 ng/mL (< 0.04)
[2018-04-12] MEDS ORDERED: PrismaSATE BGK 4/2.5 5,000 ML CRRT SCH (18:00)
[2018-04-12 18:04] LABS: Alanine Aminotransferase > 500 Units/L (7-52); Albumin 2.8 g/dL (3.5-5.7); Alkaline Phosphatase 148 Units/L (34-104); Aspartate Amino Transferase 1687 Units/L (13-39); Bilirubin,Direct 0.2 mg/dL (0.0-0.2); Bilirubin,Indirect 0.3 mg/dL (0.0-1.2); Bilirubin,Total 0.5 mg/dL (0.3-1.0); Globulin 2.7 g/dL (2.4-3.5); Total Protein 5.5 g/dL (6.4-8.9)
[2018-04-12] MEDS: Calcium Chloride 4,000 MG in 0.9 % Sodium Chloride 1,000 ML CRRT SCH (19:57)
[2018-04-12] MEDS: PrismaSATE BGK 4/2.5 5,000 ML CRRT SCH ×2 (20:01→20:02)
--- NOTE | 2018-04-12 20:50 | General Surgery Progress Note ---
Date of Encounter: 04/12/18 Time of Encounter: 20:48 - Assessment and Plan (1) Abdominal pain Current Visit: Yes Status: Acute 63F with leukocytosis and lactic acidosis; NIGEL; persistent PNA; normal scope on colonoscopy (from rectum to splenic flexure); CT scan, which was evaluated and interpreted by me, which showed calcifications of the SMA; no evidence of small bowel thickening to suggest ischemia; also with shock liver on labs; all findings more concerning for significan dehydration as part of the sepsis process likley from pneumonia; pulm support resuscitation cares per ICU abx no acute surgery will continue to follow; Qualifiers: Abdominal location: generalized Qualified Code(s): R10.84 - Generalized abdominal pain Subjective Patient reports: other (on BiPAP, in ICU; negative overall output fror last three days; NIGEL, PNA persistent per CXR; called to re-eval for lactic acidosis; ) Objective Vital Signs - Last 8 Hours Temp Pulse Resp BP Pulse Ox 04/12/18 20:14 19 111/56 99 04/12/18 18:00 77 20 97 04/12/18 17:55 97.4 F L 77 20 115/60 96 04/12/18 17:13 98.1 F 77 29 108/59 97 04/12/18 17:00 22 106/53 100 04/12/18 16:15 18 62/49 100 04/12/18 16:00 80 22 106/53 100 04/12/18 15:17 98.1 F 79 25 132/67 95 04/12/18 15:00 79 24 104/51 97 04/12/18 14:11 97.8 F 79 26 98/44 97 04/12/18 14:00 77 21 98/44 100 04/12/18 13:37 97.2 F L 77 23 97/49 98 04/12/18 13:29 97.5 F L 75 22 87/33 95 04/12/18 13:14 96.7 F L 74 28 74/37 95 04/12/18 13:00 78 18 87/33 98 04/12/18 12:59 95.0 F L 77 26 107/52 99 04/12/18 12:52 95.0 F L 77 26 109/54 100 Intake and Output 04/12/18 04/12/18 04/12/18 07:59 15:59 23:59 Intake Total 1100 / 1100 1194 / 1194 673 / 673 Output Total 150 / 150 50 / 50 Balance 950 / 950 1144 / 1144 673 / 673 Intake: IV Fluids 1100 / 1100 255 / 255 8 / 8 0.9 % Sodium Chloride 1,000 ML 1000 / 1000 @ 999 mls/hr IVC .Q1H1M [facility] Rx# :[id number] ALBURX 5% 12.5 gm In 250 ml @ 250 / 250 60 mls/hr IVC .Q4H10M [facility] Rx#: [id number] PRECEDEX Premix 400 mcg In 100 5 / 5 8 / 8 ml @ 0.2 MCG/KG/HR 2.97 mls/hr IVC .Q24H [facility] Rx#:[id number] Flagyl Premix 500 MG/100 ML 500 100 / 100 mg In 100 ml @ 100 mls/hr IVPB Q8HR [facility] Rx#:[id number] Oral 0 / 0 Blood Product 939 / 939 665 / 665 Plasma Unit [id number] 589 / 589 Plasma Unit [id number] 0 / 0 350 / 350 Plasma Unit [id number] 315 / 315 Plasma Unit [id number] 350 / 350 Output: Catheter 150 / 150 50 / 50 Other: Stool Size Large Large Stool Consistency loose liquid soft Stool Color Brown Brown Blood Tinged # Bowel Movement Diapers 1 Weight 59.4 kg Blood Glucose* 93 75 Patient Weight 04/12/18 23:59 Weight 59.4 kg - General physical appearance no distress - Eyes normal ocular movement - Respiratory normal expansion, normal respiratory effort - Cardiovascular Cardiovascular exam: Present: RRR - Abdomen Abdomen: Present: soft, tender (minimally distended) - Integumentary no rash - Musculoskeletal normal posture - Labs 04/12/18 04:33 04/12/18 17:14 Diabetes panel 04/12/18 04/12/18 04/12/18 Range/Units 01:20 04:33 10:35 Sodium 140 143 (136-145) mEq/L Potassium 5.8 H 5.9 H (3.5-5.1) mEq/L Chloride 98 104 (98-107) mEq/L Carbon Dioxide 19 L 23 (23-29) mEq/L BUN 21 26 H (8-23) mg/dL Creatinine 1.28 H 1.56 H (0.60-1.20) mg/dL Glucose 99 79 (70-105) mg/dL Calcium 9.4 8.7 (8.6-10.3) mg/dL AST 2981 H (13-39) Units/L ALT > 500 H (7-52) Units/L Alkaline Phosphatase 192 H (34-104) Units/L Albumin 2.6 L (3.5-5.7) g/dL 04/12/18 04/12/18 04/12/18 Range/Units 13:27 17:14 17:14 Sodium 146 H 145 (136-145) mEq/L Potassium 5.4 H 4.3 (3.5-5.1) mEq/L Chloride 102 103 (98-107) mEq/L Carbon Dioxide 21 L 26 (23-29) mEq/L BUN 27 H 27 H (8-23) mg/dL Creatinine 1.56 H 1.52 H (0.60-1.20) mg/dL Glucose 141 H 180 H (70-105) mg/dL Calcium 8.6 9.0 (8.6-10.3) mg/dL AST 1687 H (13-39) Units/L ALT > 500 H (7-52) Units/L Alkaline Phosphatase 148 H (34-104) Units/L Albumin 2.8 L (3.5-5.7) g/dL Calcium panel 04/12/18 04/12/18 04/12/18 Range/Units 01:20 04:33 10:35 Calcium 9.4 8.7 (8.6-10.3) mg/dL Albumin 2.6 L (3.5-5.7) g/dL 04/12/18 04/12/18 04/12/18 Range/Units 13:27 17:14 17:14 Calcium 8.6 9.0 (8.6-10.3) mg/dL Albumin 2.8 L (3.5-5.7) g/dL Pituitary panel 04/12/18 04/12/18 04/12/18 Range/Units 01:20 10:35 13:27 Sodium 140 143 146 H (136-145) mEq/L Potassium 5.8 H 5.9 H 5.4 H (3.5-5.1) mEq/L Chloride 98 104 102 (98-107) mEq/L Carbon Dioxide 19 L 23 21 L (23-29) mEq/L BUN 21 26 H 27 H (8-23) mg/dL Creatinine 1.28 H 1.56 H 1.56 H (0.60-1.20) mg/dL Glucose 99 79 141 H (70-105) mg/dL Calcium 9.4 8.7 8.6 (8.6-10.3) mg/dL 04/12/18 Range/Units 17:14 Sodium 145 (136-145) mEq/L Potassium 4.3 (3.5-5.1) mEq/L Chloride 103 (98-107) mEq/L Carbon Dioxide 26 (23-29) mEq/L BUN 27 H (8-23) mg/dL Creatinine 1.52 H (0.60-1.20) mg/dL Glucose 180 H (70-105) mg/dL Calcium 9.0 (8.6-10.3) mg/dL Adrenal panel 04/12/18 04/12/18 04/12/18 Range/Units 01:20 04:33 10:35 Sodium 140 143 (136-145) mEq/L Potassium 5.8 H 5.9 H (3.5-5.1) mEq/L Chloride 98 104 (98-107) mEq/L Carbon Dioxide 19 L 23 (23-29) mEq/L BUN 21 26 H (8-23) mg/dL Creatinine 1.28 H 1.56 H (0.60-1.20) mg/dL Glucose 99 79 (70-105) mg/dL Calcium 9.4 8.7 (8.6-10.3) mg/dL Total Bilirubin 0.4 (0.3-1.0) mg/dL AST 2981 H (13-39) Units/L ALT > 500 H (7-52) Units/L Alkaline Phosphatase 192 H (34-104) Units/L Albumin 2.6 L (3.5-5.7) g/dL 04/12/18 04/12/18 04/12/18 Range/Units 13:27 17:14 17:14 Sodium 146 H 145 (136-145) mEq/L Potassium 5.4 H 4.3 (3.5-5.1) mEq/L Chloride 102 103 (98-107) mEq/L Carbon Dioxide 21 L 26 (23-29) mEq/L BUN 27 H 27 H (8-23) mg/dL Creatinine 1.56 H 1.52 H (0.60-1.20) mg/dL Glucose 141 H 180 H (70-105) mg/dL Calcium 8.6 9.0 (8.6-10.3) mg/dL Total Bilirubin 0.5 (0.3-1.0) mg/dL AST 1687 H (13-39) Units/L ALT > 500 H (7-52) Units/L Alkaline Phosphatase 148 H (34-104) Units/L Albumin 2.8 L (3.5-5.7) g/dL - Imaging Chest x-ray: report reviewed, image reviewed CT scan - abdomen: report reviewed, image reviewed CT scan - pelvis: report reviewed, image reviewed Consult Discharge Plan - Plan Referrals: Kathy Acosta DO [Resident] -
[2018-04-12] MEDS ORDERED: Insulin LISPRO 300 UNITS/3 ML VIAL SQ SCH (21:00)
[2018-04-12] MEDS: traZODone 50 MG TABLET PO SCH (21:06)
[2018-04-12 21:37] LABS: ABG Base Excess 3 mEq/L (-2 to 3); ABG HCO3 29 mEq/L (21-27); ABG Oxygen Saturation 96 % (95-98); ABG PCO2 51 mmHg (35-45); ABG PH 7.36 pH Units (7.32-7.45); ABG PO2 84 mmHg (85-104); ABG TCO2 30 mEq/L (20-26); Blood Gas Modality BiLevel; Blood Gas PEEP 5 cm H2O
[2018-04-12 22:31] LABS: Basophils # 0.1 K/mcL (0.0-0.2); Basophils % 0.2 %; Eosinophils % 0.1 %; Hematocrit 25.7 % (35.3-44.9); Hemoglobin 7.2 g/dL (11.5-15.4); Immature Granulocytes % 1.3 % (0-4); Lymphocytes # 2.2 K/mcL (0.6-4.6); Lymphocytes % 5.9 %; Mean Corpuscular Hemoglobin 23.2 pg (28.0-33.3); Mean Corpuscular Volume 82.6 fL (83.0-100.0); Mean Platelet Volume 12.6 fL (9.4-12.4); Monocytes # 0.6 K/mcL (0.0-1.3); Monocytes % 1.5 %; Nucleated Red Blood Cells 3.5 /100 WBC (0); Platelet Count 546 K/mcL (140-400); Red Blood Count 3.11 M/mcL (3.82-4.97); Red Cell Distribution Width 23.2 % (11.5-14.5)
[2018-04-12 22:37] LABS: Neutrophils # 33.1 K/mcL (1.6-8.9)
[2018-04-12 22:37] LABS: VBG HCO3 30 mEq/L (21-27); VBG PCO2 66 mmHg (41-51); VBG PH 7.27 pH Units (7.32-7.42); VBG PO2 49 mmHg (25-50)
[2018-04-12 22:43] LABS: INR 2.7
[2018-04-12 22:51] LABS: Calcium 8.6 mg/dL (8.6-10.3); Magnesium 2.1 mg/dL (1.6-2.6); Phosphorous 3.6 mg/dL (2.7-4.5); Potassium 4.2 mEq/L (3.5-5.1)
[2018-04-12 22:54] LABS: Anisocytosis 1+ (Not Present); Hypochromasia Present (Not Present)
[2018-04-12 22:55] LABS: Dohle Bodies Present (Not Present); Large Platelets Present (Not Present); Platelet Estimate Marked Increase (Normal)
[2018-04-12 23:23] LABS: VBG Ionized Calcium 1.05 mmol/L (1.15-1.35)
[2018-04-13] MEDS: PrismaSATE BGK 4/2.5 5,000 ML CRRT SCH ×11 (00:51→20:30)
[2018-04-13] MEDS ORDERED: 0.9 % Sodium Chloride 250 ML ONE (01:45)
[2018-04-13 02:28] LABS: VBG Ionized Calcium 1.04 mmol/L (1.15-1.35)
[2018-04-13 03:22] LABS: VBG Ionized Calcium 1.03 mmol/L (1.15-1.35)
[2018-04-13 03:38] LABS: Red Cell Distribution Width 22.5 % (11.5-14.5)
[2018-04-13 03:40] LABS: Basophils % 0.1 %; Hematocrit 27.1 % (35.3-44.9); Hemoglobin 7.6 g/dL (11.5-15.4); Immature Granulocytes % 1.2 % (0-4); Lymphocytes # 2.3 K/mcL (0.6-4.6); Lymphocytes % 6.6 %; Mean Corpuscular Hemoglobin 23.3 pg (28.0-33.3); Mean Corpuscular Volume 83.1 fL (83.0-100.0); Mean Platelet Volume 12.9 fL (9.4-12.4); Monocytes # 0.5 K/mcL (0.0-1.3); Monocytes % 1.4 %; Neutrophils # 31.8 K/mcL (1.6-8.9); Nucleated Red Blood Cells 4.8 /100 WBC (0); Platelet Count 513 K/mcL (140-400); Red Blood Count 3.26 M/mcL (3.82-4.97); Segmented Neutrophils % 90.7 %
[2018-04-13 03:40] LABS: INR 2.2; Prothrombin Time 25.1 Seconds (9.4-12.1)
[2018-04-13 03:56] LABS: Alanine Aminotransferase > 500 Units/L (7-52); Albumin 2.8 g/dL (3.5-5.7); Albumin/Globulin Ratio 1.1 (1.1-2.2); Alkaline Phosphatase 158 Units/L (34-104); BUN/Creatinine Ratio 19 (6-26); Bilirubin,Direct 0.4 mg/dL (0.0-0.2); Bilirubin,Indirect 0.3 mg/dL (0.0-1.2); Bilirubin,Total 0.7 mg/dL (0.3-1.0); Blood Urea Nitrogen 16 mg/dL (8-23); Calcium 8.5 mg/dL (8.6-10.3); Carbon Dioxide 28 mEq/L (23-29); Chloride 103 mEq/L (98-107); Globulin 2.5 g/dL (2.4-3.5); Glucose 205 mg/dL (70-105); Magnesium 2.1 mg/dL (1.6-2.6); Osmolality,Calculated 297 (280-300); Phosphorous 2.1 mg/dL (2.7-4.5); Potassium 3.9 mEq/L (3.5-5.1); Sodium 140 mEq/L (136-145); Total Protein 5.3 g/dL (6.4-8.9); Troponin I 0.06 ng/mL (< 0.04); eGFR For Non-African Americans > 60 (> 60)
[2018-04-13] MEDS: Ipratropium/Albuterol Neb 3 ML IH SCH ×6 (04:21→23:09)
[2018-04-13 04:22] LABS: Hypochromasia Present (Not Present); Polychromasia 1+ (Not Present)
[2018-04-13 04:23] LABS: Platelet Estimate Increased (Normal)
[2018-04-13 04:49] LABS: Aspartate Amino Transferase 1258 Units/L (13-39)
[2018-04-13] MEDS: Pantoprazole 40 MG VIAL IVP SCH ×2 (05:28→17:27)
--- NOTE | 2018-04-13 07:25 | Pulmonology Progress Note ---
<Jose Guadalupe Koroma - Last Filed: 04/13/18 14:41> Date of Encounter: 04/13/18 Time of Encounter: 07:25 Assessment and Plan (1) Severe sepsis Current Visit: No Status: Acute Severe sepsis Patient's C. diff seems to be improving, sigmoidoscope did not show any evidence of pseudomembranes Patient on Zosyn, flagyl, and PO vancomycin Patient has NIGEL, nephrology following WBC 37.1 > 35.1 Patient's temp improved BP 101/49 Blood cultures x2 03/25 negative Repeat blood cultures drawn 04/11 - no growth to date IR placed central line Patient started on 5% albumin infusion Patient on 2 of levophed (2) C. difficile colitis Current Visit: Yes Status: Acute Per records, patient is stooling several times per day Repeat CT abdomen (04/11) did not show bowel thickening or toxic megacolon GI performed sigmoidoscopy this morning which did not show evidence of pseudomembranes or ischemia WBC 36.4 > 35.1 today Infectious disease following Completed 12 days of zosyn and 6 days of IV vancomycin Continue vancomycin PO (day 17) Continue flagyl (day 3) Restarted zosyn (day 2) (3) Pneumonia Current Visit: Yes Status: Acute Patient finished course of Zosyn ID following Restarted Zosyn (day 2), per infectious disease Repeat CT shows evidence of multifocal PNA, greater in left lobe WBC acutely elevated at 44.8, down to 35.1 Initial blood cultures were negative, repeat blood cultures drawn 04/11 - ngtd Patient currently on BIPAP with FiO2 50%, saturating at 97% Qualifiers: Pneumonia type: due to unspecified organism Laterality: bilateral Lung location: lower lobe of lung Qualified Code(s): J18.1 - Lobar pneumonia, unspecified organism (4) Elevated transaminase level Current Visit: Yes Status: Acute Acutely elevated AST of 2981 and ALT >500 Repeat shows improved AST of 1258 and no change with ALT >500 today Lactate of 9.3 > 8.9 > 10 Repeat lactate is 2.0 today RUQ US showed no evidence of hepatic venous thrombosis INR of 3.9, given 4 bags of FFP Repeat INR 2.2 today Continue N-acetylcysteine Discontinued statin Hepatitis panel ordered (5) Acute kidney injury Current Visit: Yes Status: Acute Improving Cr 1.56 > 0.86 Nephrology consulted Start renal replacement therapy with bianca 335 ml out in rubio cath yesterday (6) Lactic acidosis Current Visit: Yes Status: Acute May be due to hypovolemia Lactate elevated (/) to 9.3 > 8.9 > 10 > 6.5 Repeat lactate is 2.0 Continue to monitor (7) Abdominal pain Current Visit: Yes Status: Acute Patient initially had diffuse abdominal pain CT showed severe stenosis of SMA Surgery consulted, no intervention at this time Sigmoidoscope showed no evidence of pseudomembranes or ischemia Likely due to combination of hypovolemia and SMA stenosis Patient also has shock liver with elevated transaminases Keeping levophed at low doses to avoid excessive constriction of SMA Fluid resuscitation to maintain pressures Qualifiers: Abdominal location: generalized Qualified Code(s): R10.84 - Generalized abdominal pain (8) Anemia Current Visit: Yes Status: Acute Hgb dropped to 7.2 overnight Gave 1 unit PRBCs Repeat Hgb 7.6 Continue to monitor Qualifiers: Anemia type: unspecified type Qualified Code(s): D64.9 - Anemia, unspecified (9) DVT prophylaxis Current Visit: No Status: Acute SCDs Subjective Principal diagnosis: Sepsis Interval history: Patient resting on BIPAP this morning. Patient's hgb dropped to 7.2 overnight, and she was given 1 unit PRBCs. She is communicative but mildly sedated on precedex for agitation. She denies abdominal pain and shortness of breath this morning. Objective PUL Vital signs: Last Vital Signs Temp 98.1 F 04/13/18 04:00 Pulse 66 04/13/18 07:00 Resp 28 04/13/18 07:00 BP 78/44 04/13/18 07:00 Pulse Ox 86 04/13/18 07:00 General appearance: no acute distress, lethargic Effort: normal Auscultation: left: wheezes Cardiovascular: regular rate and rhythm Gastrointestinal: soft, non-tender Integumentary: normal Extremities: no cyanosis, other (right sided hemiplegia) mood appropriate Results - Laboratory Findings CBC and BMP: 04/13/18 03:20 04/13/18 03:20 ABG ABG pH 7.36 pH Units (7.32-7.45) 04/12/18 21:32 ABG pCO2 51 mmHg (35-45) H 04/12/18 21:32 ABG pO2 84 mmHg (85-104) L 04/12/18 21:32 ABG O2 Saturation 96 % (95-98) 04/12/18 21:32 PT/INR, D-dimer PT 25.1 Seconds (9.4-12.1) H 04/13/18 03:05 Abnormal lab findings: Abnormal lab results WBC 35.1 K/mcL (4.3-11.1) H* 04/13/18 03:20 RBC 3.26 M/mcL (3.82-4.97) L 04/13/18 03:20 Hgb 7.6 g/dL (11.5-15.4) L 04/13/18 03:20 Hct 27.1 % (35.3-44.9) L 04/13/18 03:20 MCH 23.3 pg (28.0-33.3) L 04/13/18 03:20 MCHC 28.0 g/dL (31.6-35.5) L 04/13/18 03:20 RDW 22.5 % (11.5-14.5) H 04/13/18 03:20 Plt Count 513 K/mcL (140-400) H 04/13/18 03:20 MPV 12.9 fL (9.4-12.4) H 04/13/18 03:20 Neutrophils # 31.8 K/mcL (1.6-8.9) H 04/13/18 03:20 Nucleated RBCs/100 WBC 4.8 /100 WBC (0) H 04/13/18 03:20 Hyposegmented Neuts Present (Not Present) A 04/12/18 01:20 Reactive Lymphocytes Present (Not Present) A 03/31/18 05:48 Toxic Granulation Present (Not Present) A 04/12/18 01:20 Dohle Bodies Present (Not Present) A 04/12/18 22:15 Platelet Estimate Increased (Normal) H 04/13/18 03:20 Clumped Platelets Few (Not Present) A 04/12/18 01:20 Large Platelets Present (Not Present) A 04/12/18 22:15 Polychromasia 1+ (Not Present) A 04/13/18 03:20 Hypochromasia Present (Not Present) A 04/13/18 03:20 Poikilocytosis 2+ (Not Present) A 04/12/18 01:20 Anisocytosis 1+ (Not Present) A 04/12/18 22:15 Microcytosis Present (Not Present) A 04/10/18 06:00 Macrocytosis Present (Not Present) A 04/12/18 01:20 Target Cells 1+ (Not Present) A 04/12/18 01:20 Tear Drop Cells 1+ (Not Present) A 04/04/18 05:46 PT 25.1 Seconds (9.4-12.1) H 04/13/18 03:05 APTT 37.0 Seconds (26.0-36.0) H 04/13/18 03:05 ABG pCO2 51 mmHg (35-45) H 04/12/18 21:32 ABG pO2 84 mmHg (85-104) L 04/12/18 21:32 ABG HCO3 29 mEq/L (21-27) H 04/12/18 21:32 ABG Total CO2 30 mEq/L (20-26) H 04/12/18 21:32 VBG pH 7.27 pH Units (7.32-7.42) L 04/12/18 22:34 VBG pCO2 66 mmHg (41-51) H 04/12/18 22:34 VBG HCO3 30 mEq/L (21-27) H 04/12/18 22:34 Glucose 205 mg/dL (70-105) H 04/13/18 03:20 POC Glucose 245 mg/dL (70-99) H 04/12/18 21:34 Hemoglobin A1c 6.8 % (-5.6) H 03/26/18 06:14 Calcium 8.5 mg/dL (8.6-10.3) L 04/13/18 03:20 Venous Ioniz Calcium 1.03 mmol/L (1.15-1.35) L 04/13/18 03:19 Phosphorus 2.1 mg/dL (2.7-4.5) L 04/13/18 03:20 Iron < 10 mcg/dL (50-170) L 03/29/18 05:53 Transferrin 158 mg/dL (203-362) L 03/29/18 05:53 Troponin I 0.06 ng/mL (< 0.04) H* 04/13/18 03:20 B-Natriuretic Peptide 185 pg/mL (Less than 100) H 03/25/18 00:59 Urine Clarity Hazy (Clear) A 04/11/18 20:37 Ur Leukocyte Esterase Small (Negative) H 04/11/18 20:37 Urine Microscopic RBC 3-5 per hpf (0-3) H 03/27/18 04:15 Urine Microscopic WBC 15-30 per hpf (0-3) H 04/11/18 20:37 Ur Squamous Epith Cells Many per lpf (None-Few) H 04/11/18 20:37 Urine Bacteria Many per hpf (None-Few) H 04/11/18 20:37 Urine Yeast Many per hpf (None Seen) H 04/11/18 20:37 Ur Culture Indicated? NO. (NO) A 04/11/18 20:37 Stl C. diff Tox B Gene Positive (Negative) A 03/26/18 20:10 Stl C. diff Tox A/B PCR See reflex test (Not detect) A 03/26/18 20:10 Vancomycin Trough 18 mcg/mL (5-10) H 04/08/18 10:00 EKTA Screen DETECTED (None Detected) A 04/05/18 14:52 EKTA Titer 1:160 (<1:80) H 04/05/18 14:52 Mitochondria M2 IgG Ab 45.3 Units (0.0-20.0) H 04/05/18 14:52 Mycoplasma pneumon IgG 0.48 U/L (<=0.09) H 04/05/18 12:12 - Microbiology Findings Microbiology Findings: Microbiology, Last 48 Hours 04/11/18 11:55 Blood Culture - Preliminary Peripheral Venipuncture Culture is incubating and being continuously monitored for growth. Final report to follow. 04/11/18 11:53 Blood Culture - Preliminary Peripheral Venipuncture Culture is incubating and being continuously monitored for growth. Final report to follow. - Clinical Findings Intake & Output: Intake & Output 04/12/18 04/12/18 04/13/18 15:59 23:59 07:59 Intake Total 1194 / 1194 2556 / 2556 5670 / 5670 Output Total 50 / 50 342 / 342 1290 / 1290 Balance 1144 / 1144 2214 / 2214 4380 / 4380 Consult Discharge Plan - Plan Referrals: Kathy Acosta DO [Resident] - <Trish Lancaster S - Last Filed: 04/13/18 18:15> Date of Encounter: 04/13/18 Objective PUL Vital signs: Last Vital Signs Temp 97.2 F L 04/13/18 16:00 Pulse 61 04/13/18 18:00 Resp 16 04/13/18 18:00 BP 67/57 04/13/18 18:00 Pulse Ox 100 04/13/18 18:00 Results - Laboratory Findings CBC and BMP: 04/13/18 03:20 04/13/18 03:20 ABG ABG pH 7.36 pH Units (7.32-7.45) 04/12/18 21:32 ABG pCO2 51 mmHg (35-45) H 04/12/18 21:32 ABG pO2 84 mmHg (85-104) L 04/12/18 21:32 ABG O2 Saturation 96 % (95-98) 04/12/18 21:32 PT/INR, D-dimer PT 25.1 Seconds (9.4-12.1) H 04/13/18 03:05 Abnormal lab findings: Abnormal lab results WBC 35.1 K/mcL (4.3-11.1) H* 04/13/18 03:20 RBC 3.26 M/mcL (3.82-4.97) L 04/13/18 03:20 Hgb 7.6 g/dL (11.5-15.4) L 04/13/18 03:20 Hct 27.1 % (35.3-44.9) L 04/13/18 03:20 MCH 23.3 pg (28.0-33.3) L 04/13/18 03:20 MCHC 28.0 g/dL (31.6-35.5) L 04/13/18 03:20 RDW 22.5 % (11.5-14.5) H 04/13/18 03:20 Plt Count 513 K/mcL (140-400) H 04/13/18 03:20 MPV 12.9 fL (9.4-12.4) H 04/13/18 03:20 Neutrophils # 31.8 K/mcL (1.6-8.9) H 04/13/18 03:20 Nucleated RBCs/100 WBC 4.8 /100 WBC (0) H 04/13/18 03:20 Hyposegmented Neuts Present (Not Present) A 04/12/18 01:20 Reactive Lymphocytes Present (Not Present) A 03/31/18 05:48 Toxic Granulation Present (Not Present) A 04/12/18 01:20 Dohle Bodies Present (Not Present) A 04/12/18 22:15 Platelet Estimate Increased (Normal) H 04/13/18 03:20 Clumped Platelets Few (Not Present) A 04/12/18 01:20 Large Platelets Present (Not Present) A 04/12/18 22:15 Polychromasia 1+ (Not Present) A 04/13/18 03:20 Hypochromasia Present (Not Present) A 04/13/18 03:20 Poikilocytosis 2+ (Not Present) A 04/12/18 01:20 Anisocytosis 1+ (Not Present) A 04/12/18 22:15 Microcytosis Present (Not Present) A 04/10/18 06:00 Macrocytosis Present (Not Present) A 04/12/18 01:20 Target Cells 1+ (Not Present) A 04/12/18 01:20 Tear Drop Cells 1+ (Not Present) A 04/04/18 05:46 PT 25.1 Seconds (9.4-12.1) H 04/13/18 03:05 APTT 37.0 Seconds (26.0-36.0) H 04/13/18 03:05 ABG pCO2 51 mmHg (35-45) H 04/12/18 21:32 ABG pO2 84 mmHg (85-104) L 04/12/18 21:32 ABG HCO3 29 mEq/L (21-27) H 04/12/18 21:32 ABG Total CO2 30 mEq/L (20-26) H 04/12/18 21:32 VBG pH 7.27 pH Units (7.32-7.42) L 04/12/18 22:34 VBG pCO2 66 mmHg (41-51) H 04/12/18 22:34 VBG HCO3 30 mEq/L (21-27) H 04/12/18 22:34 Glucose 205 mg/dL (70-105) H 04/13/18 03:20 POC Glucose 245 mg/dL (70-99) H 04/12/18 21:34 Hemoglobin A1c 6.8 % (-5.6) H 03/26/18 06:14 Calcium 8.5 mg/dL (8.6-10.3) L 04/13/18 03:20 Venous Ioniz Calcium 1.13 mmol/L (1.15-1.35) L 04/13/18 17:45 Phosphorus 2.1 mg/dL (2.7-4.5) L 04/13/18 03:20 Iron < 10 mcg/dL (50-170) L 03/29/18 05:53 Transferrin 158 mg/dL (203-362) L 03/29/18 05:53 Troponin I 0.06 ng/mL (< 0.04) H* 04/13/18 03:20 B-Natriuretic Peptide 185 pg/mL (Less than 100) H 03/25/18 00:59 Urine Clarity Hazy (Clear) A 04/11/18 20:37 Ur Leukocyte Esterase Small (Negative) H 04/11/18 20:37 Urine Microscopic RBC 3-5 per hpf (0-3) H 03/27/18 04:15 Urine Microscopic WBC 15-30 per hpf (0-3) H 04/11/18 20:37 Ur Squamous Epith Cells Many per lpf (None-Few) H 04/11/18 20:37 Urine Bacteria Many per hpf (None-Few) H 04/11/18 20:37 Urine Yeast Many per hpf (None Seen) H 04/11/18 20:37 Ur Culture Indicated? NO. (NO) A 04/11/18 20:37 Stl C. diff Tox B Gene Positive (Negative) A 03/26/18 20:10 Stl C. diff Tox A/B PCR See reflex test (Not detect) A 03/26/18 20:10 Vancomycin Trough 18 mcg/mL (5-10) H 04/08/18 10:00 EKTA Screen DETECTED (None Detected) A 04/05/18 14:52 EKTA Titer 1:160 (<1:80) H 04/05/18 14:52 Mitochondria M2 IgG Ab 45.3 Units (0.0-20.0) H 04/05/18 14:52 Mycoplasma pneumon IgG 0.48 U/L (<=0.09) H 04/05/18 12:12 - Clinical Findings Intake & Output: Intake & Output 04/13/18 04/13/18 04/13/18 07:59 15:59 23:59 Intake Total 5698 / 5698 963 / 963 325 / 325 Output Total 1290 / 1290 1503 / 1503 606 / 606 Balance 4408 / 4408 -540 / -540 -281 / -281 - Attending Attestation - Attending Attestation I saw and evaluated this patient and my medical decision-making was reviewed with the Resident Physician. I agree with the documented findings, disposition and treatment plan as described except to the extent set forth below. We independently had [id number] contact with the patient I spent 40 minutes of critical care time in stabilizing vital organ function Patient seen and examined at bedside Labs, radiology, chart personally reviewed. Management was reviewed during multidisciplinary critical care rounds. DATA INTEGRITY ANALYST: Patient is arousable follows commands has on and off confusion secondary to toxic /metablic encephalopathy secondary to shock liver and NIGEL Pulm: Patient has long-standing left lower lobe pneumonia with worsening V/Q mismatch complicated by a hydrostatic pulmonary edema cannot diuresed because of borderline blood pressure patient oxygenation and ventilation acceptable on BiPAP I expect patient to worse to get intubated at the moment her oxygenation and ventilation is stable. 04/13 Patient has worsening left lower lobe pneumonia will add Vancomycin on top of Zosyn Cards: Patient blood pressure is borderline looks like septic shock doubt C. difficile is the source this and blood culture to broaden this antibiotics to Zosyn still she is getting worse we will broaden to vancomycin. We will trend troponins. Patient is minimal dose of vasopressors will add Vancomycin . FEN-GI: Nothing by mouth concern for ischemic bowel GI did a limited colonoscopy which did not show any evidence of ischemia in the sigmoid flexure splenic flexure, no evidence of pseudomembranous colitis. Still concern for ischemic bowel surgery on board. Shock liver with worsening transaminitis complicated by lactic acidosis. 04/13 Lactic acidosis is resolved liver function getting better to continue N acetyl cysteine . Renal: Acute kidney kidney injury worsening urine output, worsening hyperkalemia urgent need for dialysis starting on Bianca nephrology on board. 04/13 Patient is on Primsa secondary to acute kidney injury . ID: Patient had long-standing treatment for the severe C. difficile considering fecal transplant if that is extensive pseudomembranous colitis but with negative limited colonoscopy we held off to [facility] transfer. Broaden the coverage to Zosyn according to infectious disease recommendations if she continues to did not tolerate will add vancomycin to the regimen. 04/13 Patient has worsening left sided air space opacities to add Vancomycin . Heme/Onc: No hepatic and portal vein thrombosis . SCD's Endo: Glucose Monitored Integ/MSK: Skin Care per routine ICU Nursing Protocol to prevent ulcers. Lines: All lines examined without evidence of infection : Dispo: Family updated she is critically ill CODE: Full Code
[2018-04-13] MEDS: Piperacillin/Tazobactam 3.375 GM in 0.9 % Sodium Chloride Mini Bag 100 ML IVPB SCH ×3 (08:17→23:19)
[2018-04-13] MEDS: MetroNIDAZOLE 500 MG/100 ML 500 MG/100 ML BAG IVPB SCH ×3 (08:17→23:20)
[2018-04-13] MEDS: Lactobacillus 1 EACH CAP.SPRINK PO SCH ×2 (08:24→21:14)
[2018-04-13] MEDS: Aspirin 81 MG TAB.CHEW PO SCH (08:25)
[2018-04-13] MEDS: Sucralfate 1 GM TABLET PO SCH ×3 (08:25→15:47)
[2018-04-13] MEDS: Magnesium Oxide 400 MG TABLET PO SCH (08:25)
[2018-04-13] MEDS: predniSONE 20 MG TABLET PO SCH (08:25)
[2018-04-13] MEDS: Gabapentin 100 MG CAPSULE PO SCH ×3 (08:25→21:14)
[2018-04-13] MEDS: Vancomycin Oral Soln 125 MG/2.5 ML UDC PO SCH ×4 (08:26→21:14)
--- NOTE | 2018-04-13 09:31 | General Surgery Progress Note ---
Date of Encounter: 04/13/18 Time of Encounter: 09:27 - Assessment and Plan (1) Abdominal pain Current Visit: Yes Status: Acute I personally reviewed the patient's CT scan and flex was sigmoidoscopy that was performed yesterday showing no evidence of pseudomembranes. Noted leukocytosis , however, I do not think it performing a colectomy/colostomy would improve her overall course. I do not see any signs of megacolon and there is no evidence of pseudomembranes, therefore, there is a very low likelihood that surgical resection would improve her status. Her lactic acidosis is improving and I think that a resection would have more risk than benefit. Recommend continue with current measures and pressors as needed. Qualifiers: Abdominal location: generalized Qualified Code(s): R10.84 - Generalized abdominal pain Subjective Patient reports: other (Patient on BiPAP. Confused but answeres appropriately. Reported BM. She admits to some pain.) Objective Vital Signs - Last 8 Hours Temp Pulse Resp BP Pulse Ox 04/13/18 09:00 70 24 69/55 100 04/13/18 08:00 97.6 F 69 29 81/56 94 04/13/18 07:50 23 112/48 98 04/13/18 07:00 66 28 78/44 86 04/13/18 06:00 66 24 92/61 93 04/13/18 05:00 65 27 116/48 88 04/13/18 04:21 26 94/45 97 04/13/18 04:00 98.1 F 73 16 95/44 94 04/13/18 03:00 75 22 125/52 95 04/13/18 02:00 77 20 106/55 95 04/13/18 01:50 97.1 F L 73 22 107/52 97 Intake and Output 04/12/18 04/13/18 04/13/18 23:59 07:59 15:59 Intake Total 2556 / 2556 5670 / 5670 175 / 175 Output Total 342 / 342 1290 / 1290 237 / 237 Balance 2214 / 2214 4380 / 4380 -62 / -62 Intake: IV Fluids 1891 / 1891 5670 / 5670 175 / 175 Calcium Chloride 4,000 MG In 0. 470 / 470 175 / 175 9 % Sodium Chloride 1,000 ML @ 40 mls/hr CRRT CONT [facility] Rx#: [id number] PrismaSATE BGK 4/2.5 5,000 ML @ 0 / 0 5000 / 5000 2000 mls/hr CRRT CONT [facility] Rx#: [id number] Acetadote 9,000 MG In Dextrose 295 / 295 5% 250 ML @ 250 mls/hr IVC ONCE ONE Rx#:[id number] Acetadote 3,000 MG In Dextrose 515 / 515 5% 500 ML @ 125 mls/hr IVC ONCE ONE Rx#:[id number] ALBURX 5% 12.5 gm In 250 ml @ 250 / 250 60 mls/hr IVC .Q4H10M [facility] Rx#: [id number] PRECEDEX Premix 400 mcg In 100 95 / 95 ml @ 0.2 MCG/KG/HR 2.97 mls/hr IVC .Q24H [facility] Rx#:[id number] Merrem 1,000 MG In Water for 10 / 10 inj. (sterile) 10 ML @ 120 mls/ hr IVP Q12H [facility] Rx#:[id number] Calcium Gluconate 2,000 MG In 0 120 / 120 .9 % Sodium Chloride 100 ML @ 220 mls/hr IVPB ONCE ONE Rx#: [id number] Flagyl Premix 500 MG/100 ML 500 100 / 100 100 / 100 mg In 100 ml @ 100 mls/hr IVPB Q8HR [facility] Rx#:[id number] AquaMephyton 10 MG In 0.9 % 51 / 51 Sodium Chloride 50 ML @ 100 mls /hr IVPB ONCE ONE Rx#: [id number] Zosyn 3.375 GM In 0.9 % Sodium 100 / 100 100 / 100 Chloride (Mini-Bag +) 100 ML @ 25 mls/hr IVPB Q8HR [facility] Rx#: [id number] Vancocin 1,000 MG In 0.9 % 250 / 250 Sodium Chloride 250 ML @ 166. 667 mls/hr IVPB ONCE ONE Rx#: [id number] Blood Product 665 / 665 0 / 0 Plasma Unit [id number] 350 / 350 Plasma Unit [id number] 315 / 315 Rbcs Leuko Poor As-1 Unit 0 / 0 [id number] Output: Lindsay 207 / 207 1245 / 1245 237 / 237 Catheter 135 / 135 45 / 45 0 / 0 Other: Blood Glucose* 245 - General physical appearance moderate distress - Abdomen Abdomen: Present: soft, tender (Patient admits to tenderness when the abdomen is pressed) - Labs 04/14/18 04:00 04/14/18 04:00 Diabetes panel 04/12/18 04/12/18 04/12/18 Range/Units 10:35 13:27 17:14 Sodium 143 146 H 145 (136-145) mEq/L Potassium 5.9 H 5.4 H 4.3 (3.5-5.1) mEq/L Chloride 104 102 103 (98-107) mEq/L Carbon Dioxide 23 21 L 26 (23-29) mEq/L BUN 26 H 27 H 27 H (8-23) mg/dL Creatinine 1.56 H 1.56 H 1.52 H (0.60-1.20) mg/dL Glucose 79 141 H 180 H (70-105) mg/dL Calcium 8.7 8.6 9.0 (8.6-10.3) mg/dL AST (13-39) Units/L ALT (7-52) Units/L Alkaline Phosphatase (34-104) Units/L Albumin (3.5-5.7) g/dL 04/12/18 04/12/18 04/13/18 Range/Units 17:14 22:15 03:20 Sodium 141 140 (136-145) mEq/L Potassium 4.2 3.9 (3.5-5.1) mEq/L Chloride 102 103 (98-107) mEq/L Carbon Dioxide 28 28 (23-29) mEq/L BUN 22 16 (8-23) mg/dL Creatinine 1.20 0.86 (0.60-1.20) mg/dL Glucose 239 H 205 H (70-105) mg/dL Calcium 8.6 8.5 L (8.6-10.3) mg/dL AST 1687 H 1258 H (13-39) Units/L ALT > 500 H > 500 H (7-52) Units/L Alkaline Phosphatase 148 H 158 H (34-104) Units/L Albumin 2.8 L 2.8 L (3.5-5.7) g/dL 04/13/18 Range/Units 04:00 Sodium (136-145) mEq/L Potassium (3.5-5.1) mEq/L Chloride (98-107) mEq/L Carbon Dioxide (23-29) mEq/L BUN (8-23) mg/dL Creatinine (0.60-1.20) mg/dL Glucose (70-105) mg/dL Calcium (8.6-10.3) mg/dL AST TNP (13-39) Units/L ALT TNP (7-52) Units/L Alkaline Phosphatase TNP (34-104) Units/L Albumin TNP (3.5-5.7) g/dL Calcium panel 04/12/18 04/12/18 04/12/18 Range/Units 10:35 13:27 17:14 Calcium 8.7 8.6 9.0 (8.6-10.3) mg/dL Phosphorus (2.7-4.5) mg/dL Albumin (3.5-5.7) g/dL 04/12/18 04/12/18 04/13/18 Range/Units 17:14 22:15 03:20 Calcium 8.6 8.5 L (8.6-10.3) mg/dL Phosphorus 3.6 2.1 L (2.7-4.5) mg/dL Albumin 2.8 L 2.8 L (3.5-5.7) g/dL 04/13/18 Range/Units 04:00 Calcium (8.6-10.3) mg/dL Phosphorus (2.7-4.5) mg/dL Albumin TNP (3.5-5.7) g/dL Pituitary panel 04/12/18 04/12/18 04/12/18 Range/Units 10:35 13:27 17:14 Sodium 143 146 H 145 (136-145) mEq/L Potassium 5.9 H 5.4 H 4.3 (3.5-5.1) mEq/L Chloride 104 102 103 (98-107) mEq/L Carbon Dioxide 23 21 L 26 (23-29) mEq/L BUN 26 H 27 H 27 H (8-23) mg/dL Creatinine 1.56 H 1.56 H 1.52 H (0.60-1.20) mg/dL Glucose 79 141 H 180 H (70-105) mg/dL Calcium 8.7 8.6 9.0 (8.6-10.3) mg/dL 04/12/18 04/13/18 Range/Units 22:15 03:20 Sodium 141 140 (136-145) mEq/L Potassium 4.2 3.9 (3.5-5.1) mEq/L Chloride 102 103 (98-107) mEq/L Carbon Dioxide 28 28 (23-29) mEq/L BUN 22 16 (8-23) mg/dL Creatinine 1.20 0.86 (0.60-1.20) mg/dL Glucose 239 H 205 H (70-105) mg/dL Calcium 8.6 8.5 L (8.6-10.3) mg/dL Adrenal panel 04/12/18 04/12/18 04/12/18 Range/Units 10:35 13:27 17:14 Sodium 143 146 H 145 (136-145) mEq/L Potassium 5.9 H 5.4 H 4.3 (3.5-5.1) mEq/L Chloride 104 102 103 (98-107) mEq/L Carbon Dioxide 23 21 L 26 (23-29) mEq/L BUN 26 H 27 H 27 H (8-23) mg/dL Creatinine 1.56 H 1.56 H 1.52 H (0.60-1.20) mg/dL Glucose 79 141 H 180 H (70-105) mg/dL Calcium 8.7 8.6 9.0 (8.6-10.3) mg/dL Total Bilirubin (0.3-1.0) mg/dL AST (13-39) Units/L ALT (7-52) Units/L Alkaline Phosphatase (34-104) Units/L Albumin (3.5-5.7) g/dL 04/12/18 04/12/18 04/13/18 Range/Units 17:14 22:15 03:20 Sodium 141 140 (136-145) mEq/L Potassium 4.2 3.9 (3.5-5.1) mEq/L Chloride 102 103 (98-107) mEq/L Carbon Dioxide 28 28 (23-29) mEq/L BUN 22 16 (8-23) mg/dL Creatinine 1.20 0.86 (0.60-1.20) mg/dL Glucose 239 H 205 H (70-105) mg/dL Calcium 8.6 8.5 L (8.6-10.3) mg/dL Total Bilirubin 0.5 0.7 (0.3-1.0) mg/dL AST 1687 H 1258 H (13-39) Units/L ALT > 500 H > 500 H (7-52) Units/L Alkaline Phosphatase 148 H 158 H (34-104) Units/L Albumin 2.8 L 2.8 L (3.5-5.7) g/dL 04/13/18 Range/Units 04:00 Sodium (136-145) mEq/L Potassium (3.5-5.1) mEq/L Chloride (98-107) mEq/L Carbon Dioxide (23-29) mEq/L BUN (8-23) mg/dL Creatinine (0.60-1.20) mg/dL Glucose (70-105) mg/dL Calcium (8.6-10.3) mg/dL Total Bilirubin TNP (0.3-1.0) mg/dL AST TNP (13-39) Units/L ALT TNP (7-52) Units/L Alkaline Phosphatase TNP (34-104) Units/L Albumin TNP (3.5-5.7) g/dL Consult Discharge Plan - Plan Referrals: Kathy Acosta DO [Resident] -
--- NOTE | 2018-04-13 09:53 | Nephrology Progress Note ---
Date of Encounter: 04/13/18 Time of Encounter: 10:00 - Assessment and Plan (1) Acute kidney injury Current Visit: Yes Status: Acute SCr normalized while on CVVVHDF, will continue UOP noted at 335cc in the past 24hrs Continue to avoid nephrotoxins if possible Ok to keep even to slightly negative if that help respiratory status (2) Acute and chronic respiratory failure with hypoxia Current Visit: Yes Status: Acute Per primary team (3) Anemia Current Visit: Yes Status: Acute Hgb noted at 7.6, will monitor Transfuse parameters per primary team, GI on board Qualifiers: Anemia type: unspecified type Qualified Code(s): D64.9 - Anemia, unspecified (4) C. difficile colitis Current Visit: Yes Status: Acute Per primary, GI and ID teams Subjective Interval history: Pt seen and examined on CVVVHDF and on biPAP. Per nurse, she has been struggling more with her breathing this am. No family present at bedside. No stools so far today per nurse. Objective - Vital Signs Vital signs: Vital Signs Temp Pulse Resp BP Pulse Ox 04/13/18 09:00 70 24 69/55 100 04/13/18 08:00 97.6 F 69 29 81/56 94 04/13/18 07:50 23 112/48 98 04/13/18 07:00 66 28 78/44 86 04/13/18 06:00 66 24 92/61 93 04/13/18 05:00 65 27 116/48 88 04/13/18 04:21 26 94/45 97 04/13/18 04:00 98.1 F 73 16 95/44 94 04/13/18 03:00 75 22 125/52 95 04/13/18 02:00 77 20 106/55 95 04/13/18 01:50 97.1 F L 73 22 107/52 97 04/13/18 01:00 66 18 70/46 96 04/13/18 00:00 93.9 F L 66 22 88/45 90 04/12/18 23:41 17 76/43 95 04/12/18 23:00 70 15 135/66 100 04/12/18 22:00 66 20 85/54 99 04/12/18 21:00 73 18 127/70 98 04/12/18 20:14 19 111/56 99 04/12/18 20:00 70 19 111/54 99 04/12/18 19:00 75 20 112/41 97 04/12/18 18:00 77 20 97 04/12/18 17:55 97.4 F L 77 20 115/60 96 04/12/18 17:13 98.1 F 77 29 108/59 97 04/12/18 17:00 22 106/53 100 04/12/18 16:15 18 62/49 100 04/12/18 16:00 80 22 106/53 100 04/12/18 15:17 98.1 F 79 25 132/67 95 04/12/18 15:00 79 24 104/51 97 04/12/18 14:11 97.8 F 79 26 98/44 97 04/12/18 14:00 77 21 98/44 100 04/12/18 13:37 97.2 F L 77 23 97/49 98 04/12/18 13:29 97.5 F L 75 22 87/33 95 04/12/18 13:14 96.7 F L 74 28 74/37 95 04/12/18 13:00 78 18 87/33 98 04/12/18 12:59 95.0 F L 77 26 107/52 99 04/12/18 12:52 95.0 F L 77 26 109/54 100 04/12/18 12:00 69 21 82/49 97 04/12/18 11:21 97.5 F L 69 27 121/55 95 04/12/18 11:06 97.5 F L 67 23 101/58 96 04/12/18 11:00 66 21 121/55 95 04/12/18 10:00 66 23 82/47 94 Intake and Output 04/12/18 04/13/18 04/13/18 23:59 07:59 15:59 Intake Total 2556 / 2556 5670 / 5670 175 / 175 Output Total 342 / 342 1290 / 1290 237 / 237 Balance 2214 / 2214 4380 / 4380 -62 / -62 Intake: IV Fluids 1891 / 1891 5670 / 5670 175 / 175 Calcium Chloride 4,000 MG In 0. 470 / 470 175 / 175 9 % Sodium Chloride 1,000 ML @ 40 mls/hr CRRT CONT [facility] Rx#: [id number] PrismaSATE BGK 4/2.5 5,000 ML @ 0 / 0 5000 / 5000 2000 mls/hr CRRT CONT [facility] Rx#: [id number] Acetadote 9,000 MG In Dextrose 295 / 295 5% 250 ML @ 250 mls/hr IVC [facility] Rx#:[id number] Acetadote 3,000 MG In Dextrose 515 / 515 5% 500 ML @ 125 mls/hr IVC [facility] Rx#:[id number] ALBURX 5% 12.5 gm In 250 ml @ 250 / 250 60 mls/hr IVC .Q4H10M [facility] Rx#: [id number] PRECEDEX Premix 400 mcg In 100 95 / 95 ml @ 0.2 MCG/KG/HR 2.97 mls/hr IVC .Q24H [facility] Rx#:[id number] Merrem 1,000 MG In Water for 10 / 10 inj. (sterile) 10 ML @ 120 mls/ hr IVP Q12H [facility] Rx#:[id number] Calcium Gluconate 2,000 MG In 0 120 / 120 .9 % Sodium Chloride 100 ML @ 220 mls/hr IVPB [facility] Rx#: [id number] Flagyl Premix 500 MG/100 ML 500 100 / 100 100 / 100 mg In 100 ml @ 100 mls/hr IVPB Q8HR [facility] Rx#:[id number] AquaMephyton 10 MG In 0.9 % 51 / 51 Sodium Chloride 50 ML @ 100 mls /hr IVPB [facility]CE [facility] Rx#: [id number] Zosyn 3.375 GM In 0.9 % Sodium 100 / 100 100 / 100 Chloride (Mini-Bag +) 100 ML @ 25 mls/hr IVPB Q8HR [facility] Rx#: [id number] Vancocin 1,000 MG In 0.9 % 250 / 250 Sodium Chloride 250 ML @ 166. 667 mls/hr IVPB [facility]CE [facility] Rx#: [id number] Blood Product 665 / 665 0 / 0 Plasma Unit [id number] 350 / 350 Plasma Unit [id number] 315 / 315 Rbcs Leuko Poor As-1 Unit 0 / 0 [id number] Output: Lindsay 207 / 207 1245 / 1245 237 / 237 Catheter 135 / 135 45 / 45 0 / 0 Other: Blood Glucose* 245 - General Appearance General appearance: Present: moderate distress (on biPAP), chronically ill EENT: Present: ATNC, mucous membranes dry Neck: Present: no JVD, supple Respiratory: Present: course breath sounds Cardiology: Present: normal S1, normal S2 Dialysis Vascular Access: Venous Catheter (temp line) Gastrointestinal: Present: no tenderness, no guarding Integumentary: Present: warm and dry Neurologic: Present: no focal deficit Musculoskeletal: Present: no deformities Psychiatric: Present: agitated - Lab 04/13/18 03:20 04/13/18 03:20 Most recent lab results ABG pH 7.36 pH Units (7.32-7.45) 04/12/18 21:32 ABG pCO2 51 mmHg (35-45) H 04/12/18 21:32 ABG pO2 84 mmHg (85-104) L 04/12/18 21:32 ABG HCO3 29 mEq/L (21-27) H 04/12/18 21:32 ABG O2 Saturation 96 % (95-98) 04/12/18 21:32 Calcium 8.5 mg/dL (8.6-10.3) L 04/13/18 03:20 Phosphorus 2.1 mg/dL (2.7-4.5) L 04/13/18 03:20 Magnesium 2.1 mg/dL (1.6-2.6) 04/13/18 03:20 Consult Discharge Plan - Plan Referrals: Kathy Acosta DO [Resident] -
[2018-04-13 10:04] LABS: VBG Ionized Calcium 1.13 mmol/L (1.15-1.35)
[2018-04-13] MEDS: Beclomethasone 80mcg MDI IH SCH ×2 (11:22→19:57)
[2018-04-13] MEDS: Tiotropium 18 MCG inhalation IH SCH (11:22)
[2018-04-13] MEDS: Insulin LISPRO 300 UNITS/3 ML VIAL SQ SCH ×2 (11:54→17:27)
[2018-04-13] MEDS: Norepinephrine 4 MG in D5% in Water 250 ML IVC SCH (12:44)
[2018-04-13] MEDS: Dexmedetomidine HCl 400 MCG/100 ML MLS IVC SCH (13:22)
[2018-04-13] MEDS: Calcium Chloride 4,000 MG in 0.9 % Sodium Chloride 1,000 ML CRRT SCH (13:23)
[2018-04-13 15:57] LABS: VBG Ionized Calcium 1.02 mmol/L (1.15-1.35)
[2018-04-13 17:47] LABS: VBG Ionized Calcium 1.13 mmol/L (1.15-1.35)
[2018-04-13] MEDS ORDERED: 0.9 % Sodium Chloride 1,000 ML ONE (19:48)
[2018-04-13] MEDS: traZODone 50 MG TABLET PO SCH (21:14)
--- NOTE | 2018-04-13 23:47 | Procedure Note ---
Date of procedure: 04/13/18 Pre-op diagnosis: hemodynamic monitoring Post-op diagnosis: same Procedure: A time-out was completed verifying correct patient, procedure, site, positioning. Allens test was performed to ensure adequate perfusion. The patients left wrist was prepped and draped in sterile fashion. 1% Lidocaine was used to anesthetize the area. An 18G arterial line was introduced into the radial artery. The catheter was threaded over the guide wire and the needle was removed with appropriate pulsatile blood return. The catheter was then sutured in place to the skin and a sterile dressing applied. Perfusion to the extremity distal to the point of catheter insertion was checked and found to be adequate. Dr. Millan was present for the entire procedure. Anesthesia: local Surgeon: Nelson Tsang Was there an personalized living assistant present: Yes Information Technology Assistant: Otis Millan Estimated blood loss (cc): 5 Specimen: none Pathology: none sent Condition: stable Disposition: ICU
[2018-04-14] MEDS: Lactobacillus 1 EACH CAP.SPRINK PO SCH ×3 (00:37→20:57)
[2018-04-14] MEDS: Vancomycin Oral Soln 125 MG/2.5 ML UDC PO SCH ×5 (00:37→20:57)
[2018-04-14] MEDS: traZODone 50 MG TABLET PO SCH ×2 (00:37→20:57)
[2018-04-14] MEDS: Gabapentin 100 MG CAPSULE PO SCH ×4 (00:37→20:58)
[2018-04-14] MEDS: Insulin LISPRO 300 UNITS/3 ML VIAL SQ SCH ×6 (00:41→18:04)
[2018-04-14 00:51] LABS: VBG Ionized Calcium 1.23 mmol/L (1.15-1.35)
[2018-04-14] MEDS: Calcium Chloride 4,000 MG in 0.9 % Sodium Chloride 1,000 ML CRRT SCH ×2 (03:41→16:58)
[2018-04-14] MEDS: PrismaSATE BGK 4/2.5 5,000 ML CRRT SCH ×12 (03:46→21:00)
[2018-04-14] MEDS: Ipratropium/Albuterol Neb 3 ML IH SCH ×6 (04:00→23:48)
[2018-04-14 05:09] LABS: VBG Ionized Calcium 1.24 mmol/L (1.15-1.35)
[2018-04-14 05:11] LABS: Basophils % 0.2 %; Hemoglobin 8.1 g/dL (11.5-15.4)
[2018-04-14 05:13] LABS: Basophils # 0.1 K/mcL (0.0-0.2); Hematocrit 27.8 % (35.3-44.9); Immature Granulocytes % 1.5 % (0-4); Lymphocytes % 4.4 %; Mean Corpuscular HGB Conc 29.1 g/dL (31.6-35.5); Mean Corpuscular Hemoglobin 24.2 pg (28.0-33.3); Mean Platelet Volume 12.5 fL (9.4-12.4); Monocytes # 0.7 K/mcL (0.0-1.3); Monocytes % 2.4 %; Nucleated Red Blood Cells 5.8 /100 WBC (0); Platelet Count 436 K/mcL (140-400); Red Blood Count 3.35 M/mcL (3.82-4.97); Red Cell Distribution Width 23.1 % (11.5-14.5); Segmented Neutrophils % 91.5 %
[2018-04-14 05:15] LABS: INR 1.7; Prothrombin Time 18.6 Seconds (9.4-12.1)
[2018-04-14 05:16] LABS: Lymphocytes # 1.4 K/mcL (0.6-4.6)
[2018-04-14] MEDS: Pantoprazole 40 MG VIAL IVP SCH ×2 (05:33→17:56)
[2018-04-14 05:36] LABS: Alanine Aminotransferase > 500 Units/L (7-52); Albumin 2.6 g/dL (3.5-5.7); Alkaline Phosphatase 189 Units/L (34-104); Aspartate Amino Transferase 689 Units/L (13-39); BUN/Creatinine Ratio 14 (6-26); Bilirubin,Total 0.7 mg/dL (0.3-1.0); Blood Urea Nitrogen 7 mg/dL (8-23); Calcium 9.5 mg/dL (8.6-10.3); Carbon Dioxide 27 mEq/L (23-29); Chloride 105 mEq/L (98-107); Globulin 2.6 g/dL (2.4-3.5); Glucose 170 mg/dL (70-105); Osmolality,Calculated 290 (280-300); Potassium 4.1 mEq/L (3.5-5.1); Sodium 139 mEq/L (136-145); Total Protein 5.2 g/dL (6.4-8.9); eGFR For Non-African Americans > 60 (> 60)
[2018-04-14 05:37] LABS: Platelet Estimate Normal (Normal)
[2018-04-14 05:42] LABS: Anisocytosis 2+ (Not Present); Poikilocytosis 1+ (Not Present); Polychromasia 1+ (Not Present)
[2018-04-14] MEDS: Piperacillin/Tazobactam 3.375 GM in 0.9 % Sodium Chloride Mini Bag 100 ML IVPB SCH ×2 (08:11→16:00)
[2018-04-14] MEDS: Sucralfate 1 GM TABLET PO SCH ×4 (08:12→16:59)
[2018-04-14] MEDS: Aspirin 81 MG TAB.CHEW PO SCH (08:12)
[2018-04-14] MEDS: MetroNIDAZOLE 500 MG/100 ML 500 MG/100 ML BAG IVPB SCH ×3 (08:12→15:59)
[2018-04-14] MEDS: Magnesium Oxide 400 MG TABLET PO SCH (08:13)
[2018-04-14] MEDS: predniSONE 20 MG TABLET PO SCH (08:13)
[2018-04-14] MEDS: Tiotropium 18 MCG inhalation IH SCH (08:38)
[2018-04-14] MEDS: Beclomethasone 80mcg MDI IH SCH ×2 (08:38→20:00)
--- NOTE | 2018-04-14 08:54 | Pulmonology Progress Note ---
Date of Encounter: 04/14/18 Time of Encounter: 08:40 Assessment and Plan (1) Septic shock Current Visit: Yes Status: Acute Patient septic shock is mostly resolved not very clear source disorders due to C. difficile colitis very highly unlikely with a limited colonoscopy did not show evidence of pseudomembranous colitis, CT abdomen did not show any any evidence of toxic megacolon. Blood cultures are so far negative the WBCs are trending down monitoring she has some worsening left-sided lung infiltrates patient is on broad-spectrum antibiotics for pneumonia after adding vancomycin the patient V/Q mismatch got better not sure that is the reason she is improved. To continue the current course of antibiotics.Patient is off vasopressors. (2) C. difficile colitis Current Visit: Yes Status: Acute Treatment regimen according to infectious disease patient did not show any evidence of pseudomembranous colitis and toxic megacolon. Highly doubt that this contributed to the acute deterioration of clinical status. (3) Pneumonia Current Visit: Yes Status: Acute Patient had worsening left-sided infiltrates added vancomycin on top of Zosyn patient V/Q mismatch is lot stable. Continue the broad-spectrum antibiotics for now will get infectious disease input tomorrow Qualifiers: Pneumonia type: due to unspecified organism Laterality: left Lung location: lower lobe of lung Qualified Code(s): J18.1 - Lobar pneumonia, unspecified organism (4) COPD (chronic obstructive pulmonary disease) Current Visit: Yes Status: Acute Continue scheduled bronchodilators. Qualifiers: COPD type: chronic bronchitis Chronic bronchitis type: mucopurulent Qualified Code(s): J41.1 - Mucopurulent chronic bronchitis (5) Acute kidney injury Current Visit: Yes Status: Acute Patient is on CVVH DF nephrology following patient renal parameters are improving still urine output is minimal (6) Shock liver Current Visit: Yes Status: Acute Patient lactic acidosis is resolved transaminitis is getting better to continue N-Acetyl cysteine for now. Ultrasound abdomen is negative for portal vein and hepatic vein thrombosis. (7) DVT prophylaxis Current Visit: Yes Status: Acute SCD Subjective Principal diagnosis: Sepsis Interval history: Patient didnt have any acute event events overnight. Patient says she is feeling better but for the most part she is confused. Doing well on the nasal cannula today tolerated BiPAP overnight. Will CVVH DF is going. Objective PUL Vital signs: Last Vital Signs Temp 97.2 F L 04/14/18 08:00 Pulse 66 04/14/18 08:00 Resp 22 04/14/18 08:00 BP 118/44 04/14/18 08:00 Pulse Ox 95 04/14/18 08:00 General appearance: lethargic, other (follows commands buts confused ) Auscultation: bilateral: diminished breath sounds (basilar diminished breadth sounds ) unable to assess due to mental status other (unable to assess) Results - Laboratory Findings CBC and BMP: 04/14/18 04:00 04/14/18 04:00 ABG ABG pH 7.36 pH Units (7.32-7.45) 04/12/18 21:32 ABG pCO2 51 mmHg (35-45) H 04/12/18 21:32 ABG pO2 84 mmHg (85-104) L 04/12/18 21:32 ABG O2 Saturation 96 % (95-98) 04/12/18 21:32 PT/INR, D-dimer PT 18.6 Seconds (9.4-12.1) H 04/14/18 04:00 Abnormal lab findings: Abnormal lab results WBC 30.6 K/mcL (4.3-11.1) H* 04/14/18 04:00 RBC 3.35 M/mcL (3.82-4.97) L 04/14/18 04:00 Hgb 8.1 g/dL (11.5-15.4) L 04/14/18 04:00 Hct 27.8 % (35.3-44.9) L 04/14/18 04:00 MCH 24.2 pg (28.0-33.3) L 04/14/18 04:00 MCHC 29.1 g/dL (31.6-35.5) L 04/14/18 04:00 RDW 23.1 % (11.5-14.5) H 04/14/18 04:00 Plt Count 436 K/mcL (140-400) H 04/14/18 04:00 MPV 12.5 fL (9.4-12.4) H 04/14/18 04:00 Neutrophils # 28.0 K/mcL (1.6-8.9) H 04/14/18 04:00 Nucleated RBCs/100 WBC 5.8 /100 WBC (0) H 04/14/18 04:00 Hyposegmented Neuts Present (Not Present) A 04/12/18 01:20 Reactive Lymphocytes Present (Not Present) A 03/31/18 05:48 Toxic Granulation Present (Not Present) A 04/12/18 01:20 Dohle Bodies Present (Not Present) A 04/12/18 22:15 Clumped Platelets Few (Not Present) A 04/12/18 01:20 Large Platelets Present (Not Present) A 04/12/18 22:15 Polychromasia 1+ (Not Present) A 04/14/18 04:00 Hypochromasia Present (Not Present) A 04/13/18 03:20 Poikilocytosis 1+ (Not Present) A 04/14/18 04:00 Anisocytosis 2+ (Not Present) A 04/14/18 04:00 Microcytosis Present (Not Present) A 04/10/18 06:00 Macrocytosis Present (Not Present) A 04/12/18 01:20 Target Cells 1+ (Not Present) A 04/12/18 01:20 Tear Drop Cells 1+ (Not Present) A 04/04/18 05:46 PT 18.6 Seconds (9.4-12.1) H 04/14/18 04:00 APTT 37.0 Seconds (26.0-36.0) H 04/13/18 03:05 ABG pCO2 51 mmHg (35-45) H 04/12/18 21:32 ABG pO2 84 mmHg (85-104) L 04/12/18 21:32 ABG HCO3 29 mEq/L (21-27) H 04/12/18 21:32 ABG Total CO2 30 mEq/L (20-26) H 04/12/18 21:32 VBG pH 7.27 pH Units (7.32-7.42) L 04/12/18 22:34 VBG pCO2 66 mmHg (41-51) H 04/12/18 22:34 VBG HCO3 30 mEq/L (21-27) H 04/12/18 22:34 BUN 7 mg/dL (8-23) L 04/14/18 04:00 Creatinine 0.49 mg/dL (0.60-1.20) L 04/14/18 04:00 Glucose 170 mg/dL (70-105) H 04/14/18 04:00 POC Glucose 191 mg/dL (70-99) H 04/14/18 00:39 Hemoglobin A1c 6.8 % (-5.6) H 03/26/18 06:14 Phosphorus 2.1 mg/dL (2.7-4.5) L 04/13/18 03:20 Iron < 10 mcg/dL (50-170) L 03/29/18 05:53 Transferrin 158 mg/dL (203-362) L 03/29/18 05:53 AST 689 Units/L (13-39) H 04/14/18 04:00 ALT > 500 Units/L (7-52) H 04/14/18 04:00 Alkaline Phosphatase 189 Units/L (34-104) H 04/14/18 04:00 Troponin I 0.06 ng/mL (< 0.04) H* 04/13/18 03:20 B-Natriuretic Peptide 185 pg/mL (Less than 100) H 03/25/18 00:59 Serum Total Protein 5.2 g/dL (6.4-8.9) L 04/14/18 04:00 Albumin 2.6 g/dL (3.5-5.7) L 04/14/18 04:00 Albumin/Globulin Ratio 1.0 (1.1-2.2) L 04/14/18 04:00 Urine Clarity Hazy (Clear) A 04/11/18 20:37 Ur Leukocyte Esterase Small (Negative) H 04/11/18 20:37 Urine Microscopic RBC 3-5 per hpf (0-3) H 03/27/18 04:15 Urine Microscopic WBC 15-30 per hpf (0-3) H 04/11/18 20:37 Ur Squamous Epith Cells Many per lpf (None-Few) H 04/11/18 20:37 Urine Bacteria Many per hpf (None-Few) H 04/11/18 20:37 Urine Yeast Many per hpf (None Seen) H 04/11/18 20:37 Ur Culture Indicated? NO. (NO) A 04/11/18 20:37 Stl C. diff Tox B Gene Positive (Negative) A 03/26/18 20:10 Stl C. diff Tox A/B PCR See reflex test (Not detect) A 03/26/18 20:10 Vancomycin Trough 18 mcg/mL (5-10) H 04/08/18 10:00 EKTA Screen DETECTED (None Detected) A 04/05/18 14:52 EKTA Titer 1:160 (<1:80) H 04/05/18 14:52 Mitochondria M2 IgG Ab 45.3 Units (0.0-20.0) H 04/05/18 14:52 Mycoplasma pneumon IgG 0.48 U/L (<=0.09) H 04/05/18 12:12 - Clinical Findings Intake & Output: Intake & Output 04/13/18 04/14/18 04/14/18 23:59 07:59 15:59 Intake Total 1133.5 / 1133.5 1015 / 1015 Output Total 1520 / 1520 1180 / 1180 129 / 129 Balance -386.5 / -386.5 -165 / -165 -129 / -129 Consult Discharge Plan - Plan Referrals: Kathy Acosta DO [Resident] -
[2018-04-14] MEDS: Norepinephrine 4 MG in D5% in Water 250 ML IVC SCH (09:25)
[2018-04-14] MEDS: Dexmedetomidine HCl 400 MCG/100 ML MLS IVC SCH ×2 (09:33→20:54)
--- NOTE | 2018-04-14 11:22 | Nephrology Progress Note ---
Date of Encounter: 04/14/18 Time of Encounter: 11:00 - Assessment and Plan (1) Acute kidney injury Current Visit: Yes Status: Acute SCr normalized while on CVVVHDF, will continue UOP noted at 70cc in the past 24hrs Continue to avoid nephrotoxins if possible Ok to keep even to slightly negative if that help respiratory status (2) Acute and chronic respiratory failure with hypoxia Current Visit: Yes Status: Acute Per primary team (3) Anemia Current Visit: Yes Status: Acute Hgb noted at 8.1, will monitor Transfuse parameters per primary team, GI on board Qualifiers: Anemia type: unspecified type Qualified Code(s): D64.9 - Anemia, unspecified (4) C. difficile colitis Current Visit: Yes Status: Acute Per primary, GI and ID teams Subjective Principal diagnosis: Sepsis Interval history: Pt seen and examined on CVVVHDF and on biPAP. Objective - Vital Signs Vital signs: Vital Signs Temp Pulse Resp BP Pulse Ox 04/14/18 11:00 72 18 149/60 93 04/14/18 10:00 61 24 151/56 95 04/14/18 09:00 65 22 128/44 94 04/14/18 08:00 97.2 F L 66 22 118/44 95 04/14/18 07:51 18 128/44 94 04/14/18 07:00 59 14 120/56 99 04/14/18 06:00 60 16 98/51 91 04/14/18 05:00 60 12 127/55 95 04/14/18 04:01 16 105/47 100 04/14/18 04:00 58 16 100/53 99 04/14/18 03:00 97.9 F 60 24 107/50 100 04/14/18 02:00 67 20 112/47 100 04/14/18 01:00 64 12 103/43 99 04/14/18 00:00 63 13 119/48 100 04/13/18 23:09 12 116/50 100 04/13/18 23:00 94.5 F L 60 13 115/49 100 04/13/18 22:00 58 15 120/53 100 04/13/18 21:00 59 17 111/51 100 04/13/18 20:00 94.0 F L 60 12 122/52 98 04/13/18 18:51 64 30 113/61 96 04/13/18 18:00 61 16 67/57 100 04/13/18 17:00 63 21 96/47 97 04/13/18 16:00 97.2 F L 60 18 69/57 98 04/13/18 15:34 20 100/60 100 04/13/18 15:00 60 19 105/60 100 04/13/18 14:00 60 20 67/41 100 04/13/18 13:00 66 24 131/63 100 04/13/18 12:00 97.6 F 63 28 80/48 99 04/13/18 11:22 23 107/49 99 Intake and Output 04/13/18 04/14/18 04/14/18 23:59 07:59 15:59 Intake Total 1133.5 / 1133.5 1015 / 1015 5 / 5 Output Total 1520 / 1520 1180 / 1180 662 / 662 Balance -386.5 / -386.5 -165 / -165 -657 / -657 Intake: IV Fluids 783.5 / 783.5 1015 / 1015 5 / 5 Calcium Chloride 4,000 MG In 0. 225 / 225 815 / 815 9 % Sodium Chloride 1,000 ML @ 40 mls/hr CRRT CONT [facility] Rx#: [id number] PrismaSATE BGK 4/2.5 5,000 ML @ 0 / 0 0 / 0 0 / 0 2000 mls/hr CRRT CONT [facility] Rx#: [id number] PRECEDEX Premix 400 mcg In 100 92 / 92 5 / 5 ml @ 0.2 MCG/KG/HR 2.97 mls/hr IVC .Q24H [facility] Rx#:[id number] Levophed 4 MG In Dextrose 5% 16.5 / 16.5 250 ML @ 5 MCG/MIN 19.05 mls/hr IVC CONT [facility] Rx#:[id number] Flagyl Premix 500 MG/100 ML 500 100 / 100 100 / 100 mg In 100 ml @ 100 mls/hr IVPB Q8HR [facility] Rx#:[id number] Zosyn 3.375 GM In 0.9 % Sodium 100 / 100 100 / 100 Chloride (Mini-Bag +) 100 ML @ 25 mls/hr IVPB Q8HR [facility] Rx#: [id number] Vancocin 750 MG In 0.9 % Sodium 250 / 250 Chloride 250 ML @ 250 mls/hr IVPB Q24H [facility] Rx#:[id number] Blood Product 350 / 350 Rbcs Leuko Poor As-1 Unit 350 / 350 [id number] Output: Lindsay 1495 / 1495 1170 / 1170 651 / 651 Catheter Other: Meal NPO Blood Glucose* 187 177 - Lab 04/14/18 04:00 04/14/18 04:00 Most recent lab results ABG pH 7.36 pH Units (7.32-7.45) 04/12/18 21:32 ABG pCO2 51 mmHg (35-45) H 04/12/18 21:32 ABG pO2 84 mmHg (85-104) L 04/12/18 21:32 ABG HCO3 29 mEq/L (21-27) H 04/12/18 21:32 ABG O2 Saturation 96 % (95-98) 04/12/18 21:32 Calcium 9.5 mg/dL (8.6-10.3) 04/14/18 04:00 Phosphorus 2.1 mg/dL (2.7-4.5) L 04/13/18 03:20 Magnesium 2.1 mg/dL (1.6-2.6) 04/14/18 04:00 Consult Discharge Plan - Plan Referrals: Kathy Acosta DO [Resident] -
[2018-04-14] MEDS: 0.9 % Sodium Chloride 1,000 ML PRIME SCH ×2 (13:55→13:56)
[2018-04-14 14:16] LABS: VBG Ionized Calcium 1.16 mmol/L (1.15-1.35)
[2018-04-14] MEDS ORDERED: Haloperidol Lactate 5 MG/ML VIAL ONE (18:32)
[2018-04-14] MEDS ORDERED: Haloperidol Lactate 5 MG/ML VIAL IVP ONE (18:33)
[2018-04-14 20:05] LABS: VBG Ionized Calcium 1.14 mmol/L (1.15-1.35)
[2018-04-14] MEDS: Vancomycin 500 MG in 0.9 % Sodium Chloride Mini Bag 100 ML IVPB SCH (21:21)
[2018-04-15] MEDS: MetroNIDAZOLE 500 MG/100 ML 500 MG/100 ML BAG IVPB SCH ×2 (00:06→08:29)
[2018-04-15] MEDS: Piperacillin/Tazobactam 3.375 GM in 0.9 % Sodium Chloride Mini Bag 100 ML IVPB SCH ×3 (00:06→17:02)
[2018-04-15] MEDS: Insulin LISPRO 300 UNITS/3 ML VIAL SQ SCH ×4 (00:12→17:04)
[2018-04-15] MEDS: PrismaSATE BGK 4/2.5 5,000 ML CRRT SCH ×7 (01:14→14:15)
[2018-04-15] MEDS ORDERED: *HR* Heparin 5,000 UNIT/ML VIAL ONE ×2 (01:19→01:20)
[2018-04-15] MEDS ORDERED: 0.9 % Sodium Chloride 1,000 ML ONE (01:20)
[2018-04-15 02:12] LABS: VBG Ionized Calcium 1.02 mmol/L (1.15-1.35)
[2018-04-15] MEDS: Dexmedetomidine HCl 400 MCG/100 ML MLS IVC SCH (02:38)
[2018-04-15] MEDS: Ipratropium/Albuterol Neb 3 ML IH SCH ×5 (03:42→20:38)
[2018-04-15 04:11] LABS: Basophils % 0.1 %; Hematocrit 28.5 % (35.3-44.9); Hemoglobin 8.2 g/dL (11.5-15.4); Lymphocytes # 0.7 K/mcL (0.6-4.6); Lymphocytes % 2.8 %; Mean Corpuscular HGB Conc 28.8 g/dL (31.6-35.5); Mean Corpuscular Hemoglobin 24.3 pg (28.0-33.3); Mean Corpuscular Volume 84.6 fL (83.0-100.0); Mean Platelet Volume 11.8 fL (9.4-12.4); Monocytes # 0.7 K/mcL (0.0-1.3); Monocytes % 2.7 %; Neutrophils # 24.2 K/mcL (1.6-8.9); Nucleated Red Blood Cells 4.5 /100 WBC (0); Platelet Count 375 K/mcL (140-400); Red Blood Count 3.37 M/mcL (3.82-4.97); Red Cell Distribution Width 23.6 % (11.5-14.5); Segmented Neutrophils % 93.4 %
[2018-04-15 04:11] LABS: VBG Ionized Calcium 0.93 mmol/L (1.15-1.35)
[2018-04-15 04:18] LABS: INR 1.3; Prothrombin Time 14.6 Seconds (9.4-12.1)
[2018-04-15 04:30] LABS: BUN/Creatinine Ratio 11 (6-26); Blood Urea Nitrogen 4 mg/dL (8-23); Calcium 9.3 mg/dL (8.6-10.3); Carbon Dioxide 30 mEq/L (23-29); Chloride 107 mEq/L (98-107); Glucose 175 mg/dL (70-105); Osmolality,Calculated 287 (280-300); Potassium 3.8 mEq/L (3.5-5.1); Sodium 138 mEq/L (136-145); eGFR For Non-African Americans > 60 (> 60)
[2018-04-15] MEDS: Calcium Chloride 4,000 MG in 0.9 % Sodium Chloride 1,000 ML CRRT SCH ×2 (04:55→14:43)
[2018-04-15 05:17] LABS: Anisocytosis 2+ (Not Present); Hypochromasia Present (Not Present); Poikilocytosis 1+ (Not Present)
[2018-04-15 05:18] LABS: Platelet Estimate Normal (Normal); Toxic Granulation Present (Not Present)
[2018-04-15] MEDS: Pantoprazole 40 MG VIAL IVP SCH ×2 (05:46→17:02)
--- NOTE | 2018-04-15 07:13 | Pulmonology Progress Note ---
Date of Encounter: 04/15/18 Time of Encounter: 07:13 Assessment and Plan (1) Septic shock Current Visit: Yes Status: Acute Patient seen and examined at bedside Labs, radiology, chart personally reviewed. Management was reviewed during multidisciplinary critical care rounds. Below reflects my systems based assessment and plan BOLT MAN: No focal deficit on exam the patient is on a low dose of Precedex which we are holding today because of lethargy can give anti-anxiolytic medications on an as-needed basis. I suspect delirium which is multifactorial including metabolic derangements and critical illness Pulm: Patient has history of underlying COPD respiratory failure this is improving she has acceptable oxygenation today continue BiPAP when sleeping and at night and otherwise nasal cannula throughout the day Cards: Distributive shock has resolved she is off vasopressor now tolerating CRRT. Lactate has normalized GI: Acute Hep A. and possible ischemic hepatitis which is improving History of recurrent C. difficile infections was seen by general surgery who performed flexible sigmoidoscopy without evidence of pseudomembranes and there is no evidence of toxic megacolon their impression was that colectomy at this point would offer her a little to no improvement Nutrition: Advance diet as tolerated Renal: Acute kidney injury is likely secondary to hypotension on CRRT I suspect this can be transitioned to intermittent HD appreciate nephrology following this patient and managing the aspects of dialysis UOP Monitored, Cont to Trend sCr and monitor Electrolytes. ID: Suspected acute pneumonia complicated by history of C. difficile infection she is on broad-spectrum antibiotics will discussed the case again with the infectious disease to get their opinion regarding optimizing antimicrobial selection cultures thus far are negative. White count trending down Heme/Onc: H&H and platelets are stable Endo: History of diabetes Glucose Monitored and acceptable Integ/MSK: Skin Care per routine ICU Nursing Protocol to prevent ulcers. Lines: All lines examined without evidence of infection : Dispo: She will remain in the ICU for CRRT once she is transitioned to intermittent dialysis she can be transferred out of the ICU to [facility] telemetry for ongoing care CODE: Full code (2) Lactic acidosis Current Visit: Yes Status: Acute (3) Septicemia Current Visit: No Status: Acute (4) Diabetes mellitus type 2 in obese Current Visit: No Status: Acute (5) COPD (chronic obstructive pulmonary disease) Current Visit: Yes Status: Acute Qualifiers: COPD type: chronic bronchitis Chronic bronchitis type: mucopurulent Qualified Code(s): J41.1 - Mucopurulent chronic bronchitis (6) C. difficile colitis Current Visit: Yes Status: Acute (7) Acute and chronic respiratory failure with hypoxia Current Visit: Yes Status: Acute (8) Pneumonia Current Visit: Yes Status: Acute Qualifiers: Pneumonia type: due to unspecified organism Laterality: left Lung location: lower lobe of lung Qualified Code(s): J18.1 - Lobar pneumonia, unspecified organism (9) Acute kidney injury Current Visit: Yes Status: Acute (10) Shock liver Current Visit: Yes Status: Acute Subjective Principal diagnosis: Sepsis Interval history: No acute events overnight. Patient has remained hemodynamically stable off vasopressor. Continues make a small amount of urine. She has been on CRRT without issue. Has been agitated periodically and is on a infusion and Precedex for this Objective PUL Vital signs: Last Vital Signs Temp 97.9 F 04/15/18 04:30 Pulse 76 04/15/18 07:00 Resp 31 04/15/18 07:00 BP 95/46 04/15/18 07:00 Pulse Ox 98 04/15/18 07:00 General appearance: lethargic (But is arousable) Eyes: nonicteric Auscultation: bilateral: diminished breath sounds, rales Cardiovascular: regular rate and rhythm Gastrointestinal: normoactive bowel sounds, soft, non-tender Integumentary: other (No evidence of new rash or ecchymotic changes) Extremities: no cyanosis, anasarca Musculoskeletal: no deformities non-focal exam, pupils equal and round other (Patient is calm when I examined her) Results - Laboratory Findings CBC and BMP: 04/15/18 03:53 04/15/18 03:53 ABG ABG pH 7.36 pH Units (7.32-7.45) 04/12/18 21:32 ABG pCO2 51 mmHg (35-45) H 04/12/18 21:32 ABG pO2 84 mmHg (85-104) L 04/12/18 21:32 ABG O2 Saturation 96 % (95-98) 04/12/18 21:32 PT/INR, D-dimer PT 14.6 Seconds (9.4-12.1) H 04/15/18 03:53 Abnormal lab findings: Abnormal lab results WBC 25.9 K/mcL (4.3-11.1) H 04/15/18 03:53 RBC 3.37 M/mcL (3.82-4.97) L 04/15/18 03:53 Hgb 8.2 g/dL (11.5-15.4) L 04/15/18 03:53 Hct 28.5 % (35.3-44.9) L 04/15/18 03:53 MCH 24.3 pg (28.0-33.3) L 04/15/18 03:53 MCHC 28.8 g/dL (31.6-35.5) L 04/15/18 03:53 RDW 23.6 % (11.5-14.5) H 04/15/18 03:53 Neutrophils # 24.2 K/mcL (1.6-8.9) H 04/15/18 03:53 Nucleated RBCs/100 WBC 4.5 /100 WBC (0) H 04/15/18 03:53 Hyposegmented Neuts Present (Not Present) A 04/12/18 01:20 Reactive Lymphocytes Present (Not Present) A 03/31/18 05:48 Toxic Granulation Present (Not Present) A 04/15/18 03:53 Dohle Bodies Present (Not Present) A 04/12/18 22:15 Clumped Platelets Few (Not Present) A 04/12/18 01:20 Large Platelets Present (Not Present) A 04/12/18 22:15 Polychromasia 1+ (Not Present) A 04/14/18 04:00 Hypochromasia Present (Not Present) A 04/15/18 03:53 Poikilocytosis 1+ (Not Present) A 04/15/18 03:53 Anisocytosis 2+ (Not Present) A 04/15/18 03:53 Microcytosis Present (Not Present) A 04/10/18 06:00 Macrocytosis Present (Not Present) A 04/12/18 01:20 Target Cells 1+ (Not Present) A 04/12/18 01:20 Tear Drop Cells 1+ (Not Present) A 04/04/18 05:46 PT 14.6 Seconds (9.4-12.1) H 04/15/18 03:53 APTT 37.0 Seconds (26.0-36.0) H 04/13/18 03:05 ABG pCO2 51 mmHg (35-45) H 04/12/18 21:32 ABG pO2 84 mmHg (85-104) L 04/12/18 21:32 ABG HCO3 29 mEq/L (21-27) H 04/12/18 21:32 ABG Total CO2 30 mEq/L (20-26) H 04/12/18 21:32 VBG pH 7.27 pH Units (7.32-7.42) L 04/12/18 22:34 VBG pCO2 66 mmHg (41-51) H 04/12/18 22:34 VBG HCO3 30 mEq/L (21-27) H 04/12/18 22:34 Carbon Dioxide 30 mEq/L (23-29) H 04/15/18 03:53 BUN 4 mg/dL (8-23) L 04/15/18 03:53 Creatinine 0.37 mg/dL (0.60-1.20) L 04/15/18 03:53 Glucose 175 mg/dL (70-105) H 04/15/18 03:53 POC Glucose 187 mg/dL (70-99) H 04/15/18 00:10 Hemoglobin A1c 6.8 % (-5.6) H 03/26/18 06:14 Venous Ioniz Calcium 0.93 mmol/L (1.15-1.35) L 04/15/18 04:07 Phosphorus 2.1 mg/dL (2.7-4.5) L 04/13/18 03:20 Iron < 10 mcg/dL (50-170) L 03/29/18 05:53 Transferrin 158 mg/dL (203-362) L 03/29/18 05:53 AST 689 Units/L (13-39) H 04/14/18 04:00 ALT > 500 Units/L (7-52) H 04/14/18 04:00 Alkaline Phosphatase 189 Units/L (34-104) H 04/14/18 04:00 Troponin I 0.06 ng/mL (< 0.04) H* 04/13/18 03:20 B-Natriuretic Peptide 185 pg/mL (Less than 100) H 03/25/18 00:59 Serum Total Protein 5.2 g/dL (6.4-8.9) L 04/14/18 04:00 Albumin 2.6 g/dL (3.5-5.7) L 04/14/18 04:00 Albumin/Globulin Ratio 1.0 (1.1-2.2) L 04/14/18 04:00 Urine Clarity Hazy (Clear) A 04/11/18 20:37 Ur Leukocyte Esterase Small (Negative) H 04/11/18 20:37 Urine Microscopic RBC 3-5 per hpf (0-3) H 03/27/18 04:15 Urine Microscopic WBC 15-30 per hpf (0-3) H 04/11/18 20:37 Ur Squamous Epith Cells Many per lpf (None-Few) H 04/11/18 20:37 Urine Bacteria Many per hpf (None-Few) H 04/11/18 20:37 Urine Yeast Many per hpf (None Seen) H 04/11/18 20:37 Ur Culture Indicated? NO. (NO) A 04/11/18 20:37 Stl C. diff Tox B Gene Positive (Negative) A 03/26/18 20:10 Stl C. diff Tox A/B PCR See reflex test (Not detect) A 03/26/18 20:10 EKTA Screen DETECTED (None Detected) A 04/05/18 14:52 EKTA Titer 1:160 (<1:80) H 04/05/18 14:52 Mitochondria M2 IgG Ab 45.3 Units (0.0-20.0) H 04/05/18 14:52 Mycoplasma pneumon IgG 0.48 U/L (<=0.09) H 04/05/18 12:12 - Clinical Findings Intake & Output: Intake & Output 04/14/18 04/14/18 04/15/18 15:59 23:59 07:59 Intake Total 945 / 945 703.0 / 703.0 1450 / 1450 Output Total 1413 / 1413 1661 / 1661 1591 / 1591 Balance -468 / -468 -958.0 / -958.0 -141 / -141 Weight 67.5 kg Consult Discharge Plan - Plan Referrals: Kathy Acosta DO [Resident] -
[2018-04-15 07:58] LABS: VBG Ionized Calcium 1.04 mmol/L (1.15-1.35)
[2018-04-15] MEDS: Beclomethasone 80mcg MDI IH SCH (07:59)
[2018-04-15] MEDS: Tiotropium 18 MCG inhalation IH SCH (08:00)
[2018-04-15] MEDS: predniSONE 20 MG TABLET PO SCH (08:30)
[2018-04-15] MEDS: Aspirin 81 MG TAB.CHEW PO SCH (08:30)
[2018-04-15] MEDS: Sucralfate 1 GM TABLET PO SCH ×3 (08:31→17:02)
[2018-04-15] MEDS: Magnesium Oxide 400 MG TABLET PO SCH (08:31)
[2018-04-15] MEDS: Gabapentin 100 MG CAPSULE PO SCH ×3 (08:31→22:16)
--- NOTE | 2018-04-15 08:31 | General Surgery Progress Note ---
Date of Encounter: 04/15/18 Time of Encounter: 08:29 - Assessment and Plan (1) Abdominal pain Current Visit: Yes Status: Acute 63F with leukocytosis and lactic acidosis; NIGEL; persistent PNA; normal scope on colonoscopy (from rectum to splenic flexure); CT scan, which was evaluated and interpreted by me, which showed calcifications of the SMA; no evidence of small bowel thickening to suggest ischemia; also with shock liver on labs; all findings more concerning for significan dehydration as part of the sepsis process likley from pneumonia; now with resolution of lactic acidosis, currently on dialysis; normal HR and BP, no pressors; pulm support resuscitation cares per ICU abx no acute surgery general surgery will sign off; please call with any new questions or concerns; Qualifiers: Abdominal location: generalized Qualified Code(s): R10.84 - Generalized abdominal pain Subjective Patient reports: no new complaints Objective Vital Signs - Last 8 Hours Temp Pulse Resp BP Pulse Ox 04/15/18 08:00 98.6 F 72 21 114/48 100 04/15/18 07:59 21 114/48 100 04/15/18 07:00 76 31 95/46 98 04/15/18 06:00 70 23 135/55 100 04/15/18 05:00 69 22 112/51 98 04/15/18 04:30 97.9 F 73 26 108/50 99 04/15/18 03:42 22 110/53 97 04/15/18 03:00 70 21 95/47 96 04/15/18 02:00 73 26 134/52 99 04/15/18 01:30 72 20 119/49 92 04/15/18 00:30 96.8 F L 72 16 144/54 98 Intake and Output 04/14/18 04/15/18 04/15/18 23:59 07:59 15:59 Intake Total 703.0 / 703.0 1450 / 1450 0 / 0 Output Total 1661 / 1661 1591 / 1591 243 / 243 Balance -958.0 / -958.0 -141 / -141 -243 / -243 Intake: IV Fluids 703.0 / 703.0 1450 / 1450 Calcium Chloride 4,000 MG In 0. 300 / 300 1040 / 1040 9 % Sodium Chloride 1,000 ML @ 40 mls/hr CRRT CONT [facility] Rx#: [id number] PrismaSATE BGK 4/2.5 5,000 ML @ 0 / 0 0 / 0 2000 mls/hr CRRT CONT [facility] Rx#: [id number] PRECEDEX Premix 400 mcg In 100 95 / 95 100 / 100 ml @ 0.2 MCG/KG/HR 2.97 mls/hr IVC .Q24H [facility] Rx#:[id number] Levophed 4 MG In Dextrose 5% 8.0 / 8.0 250 ML @ 5 MCG/MIN 19.05 mls/hr IVC CONT [facility] Rx#:[id number] Calcium Gluconate 1,000 MG In 0 110 / 110 .9 % Sodium Chloride 100 ML @ 220 mls/hr IVPB ONCE [facility] Rx#: [id number] Flagyl Premix 500 MG/100 ML 500 100 / 100 100 / 100 mg In 100 ml @ 100 mls/hr IVPB Q8HR [facility] Rx#:[id number] Zosyn 3.375 GM In 0.9 % Sodium 100 / 100 100 / 100 Chloride (Mini-Bag +) 100 ML @ 25 mls/hr IVPB Q8HR [facility] Rx#: [id number] Vancocin 500 MG In 0.9 % Sodium 100 / 100 Chloride (Mini-Bag +) 100 ML @ 100 mls/hr IVPB Q12H [facility] Rx#: [id number] Oral 0 / 0 0 / 0 0 / 0 Output: Lindsay 1652 / 1652 1586 / 1586 243 / 243 Catheter 9 / 9 5 / 5 0 / 0 Other: Meal NPO Weight 67.5 kg 65.2 kg Blood Glucose* 214 175 Patient Weight 04/15/18 23:59 Weight 65.2 kg - General physical appearance other (respiratory insufficiency requiring BiPAP) - Respiratory normal expansion, normal respiratory effort - Cardiovascular Cardiovascular exam: Present: RRR - Abdomen Abdomen: Present: soft (non distended), non tender - Labs 04/15/18 03:53 04/15/18 03:53 Diabetes panel 04/15/18 Range/Units 03:53 Sodium 138 (136-145) mEq/L Potassium 3.8 (3.5-5.1) mEq/L Chloride 107 (98-107) mEq/L Carbon Dioxide 30 H (23-29) mEq/L BUN 4 L (8-23) mg/dL Creatinine 0.37 L (0.60-1.20) mg/dL Glucose 175 H (70-105) mg/dL Calcium 9.3 (8.6-10.3) mg/dL Calcium panel 04/15/18 Range/Units 03:53 Calcium 9.3 (8.6-10.3) mg/dL Pituitary panel 04/15/18 Range/Units 03:53 Sodium 138 (136-145) mEq/L Potassium 3.8 (3.5-5.1) mEq/L Chloride 107 (98-107) mEq/L Carbon Dioxide 30 H (23-29) mEq/L BUN 4 L (8-23) mg/dL Creatinine 0.37 L (0.60-1.20) mg/dL Glucose 175 H (70-105) mg/dL Calcium 9.3 (8.6-10.3) mg/dL Adrenal panel 04/15/18 Range/Units 03:53 Sodium 138 (136-145) mEq/L Potassium 3.8 (3.5-5.1) mEq/L Chloride 107 (98-107) mEq/L Carbon Dioxide 30 H (23-29) mEq/L BUN 4 L (8-23) mg/dL Creatinine 0.37 L (0.60-1.20) mg/dL Glucose 175 H (70-105) mg/dL Calcium 9.3 (8.6-10.3) mg/dL Consult Discharge Plan - Plan Referrals: Kathy Acosta DO [Resident] -
[2018-04-15] MEDS: Vancomycin Oral Soln 125 MG/2.5 ML UDC PO SCH ×4 (08:32→22:16)
[2018-04-15] MEDS: Vancomycin 500 MG in 0.9 % Sodium Chloride Mini Bag 100 ML IVPB SCH ×2 (08:34→22:17)
[2018-04-15] MEDS: Lactobacillus 1 EACH CAP.SPRINK PO SCH ×2 (08:42→22:17)
--- NOTE | 2018-04-15 09:39 | Infectious Disease Progress No ---
Date of Encounter: 04/15/18 Time of Encounter: 09:36 - Assessment and Plan (1) Sepsis Current Visit: No Status: Acute Progressed to septic shock requiring vasopressors with end organ damage. Likely secondary to pneumonia and Hepatitis A. WBC trending down. Vasopressors off. Continues to have hypothermia requiring bear hugger. Blood cultures obtained 03/25/18 are negative 2 sets. Repeat blood cultures drawn 04/11/18 are NGTD x 2 sets. Qualifiers: Sepsis type: sepsis due to unspecified organism Qualified Code(s): A41.9 - Sepsis, unspecified organism (2) Pneumonia Current Visit: Yes Status: Acute Location: Multifocal, greatest in the left lower lobe. Causative organism: Unclear. No evidence of aspiration noted on exam. Respiratory infectious panel was negative. Strep pneumococcal and legionella urinary antigens were negative. The patient has been able to provide us with 2 sputum cultures that are both negative. CT chest 04/08/18 showed improvement, but CT abdomen and pelvis 04/11/18 showed persistent LLL pneumonia. Completed 12 days of Zosyn and 6 days of Vanc. Continue Zosyn 3.375 grams IV Q8H. (day 4) Continue Vancomycin IV. Pharmacy to dose. Goal trough ~15. (day 4) Duration of treatment depends on the clinical picture. Monitor renal function and for drug toxicity and dose-adjust antibiotics. Qualifiers: Pneumonia type: due to unspecified organism Laterality: left Lung location: lower lobe of lung Qualified Code(s): J18.1 - Lobar pneumonia, unspecified organism (3) C. difficile colitis Current Visit: Yes Status: Acute Severe. Clinically, the patient's stools are more formed, but she is still stooling several times per day. Repeat CT of the abdomen and pelvis showed findings consistent with ileus and gastroenteritis on 04/08/[address] of the abdomen and pelvis 04/11/18 did not show any bowel thickening or toxic megacolon, but radiologist reports concern for ischemic bowel due to severe calcification of the mesenteric circulation. Status post colonoscopy 04/12/18 that was negative for pseudomembranous or toxic megacolon. Continue Vancomycin 125mg PO QID. (day 19). Continue Flagyl 500 mg IV every 8 hours. (day 5) Duration of treatment depends on the clinical picture. (4) Abdominal pain Current Visit: Yes Status: Acute Secondary to C diff colitis and gastroenteritis and Hepatitis A. GI consulted. Appreciate recommendations. LFTs this morning markedly elevated and lactic acid 9. CT abdomen and pelvis on 04/03/2018: Cholelithiasis, small amount of gas within the bladder. Decreased small bowel distention with small bowel wall thickening in the left upper quadrant; no toxic megacolon. Repeat CT of the abdomen and pelvis 04/11/18 showed findings concerning for ischemic bowel. Status post colonoscopy 04/12/15 that was negative for pseudomembranous colitis or toxic megacolon. Pain management per the primary team. Qualifiers: Abdominal location: generalized Qualified Code(s): R10.84 - Generalized abdominal pain (5) Rectal bleeding Current Visit: Yes Status: Acute Patient started having bloody stools overnight. Etiology unclear. Not sure that it is from the C. diff since her stools are formed. Status post colonoscopy 04/12/18 that was negative for bleeding. Appears improved. Management and transfusion parameters per the primary team. (6) Elevated transaminase level Current Visit: Yes Status: Acute Likely secondary to Hepatitis A vs. shock liver. Trending down. Continue supportive care. (7) Lactic acidosis Current Visit: Yes Status: Acute Likely secondary to sepsis. Improved. (8) Acute kidney injury Current Visit: Yes Status: Acute Etiology unclear. Improved. Continue to trend. CRRT started 04/12/18. (9) Hepatitis A Current Visit: Yes Status: Acute Hepatitis A antibody positive. Likely contributing to the elevated LFTs. Continue to trend LFTs and continue supportive care. Qualifiers: Hepatic coma status: without hepatic coma Qualified Code(s): B15.9 - Hepatitis A without hepatic coma - Subjective Interval history: Patient seen and examined. Weekend notes reviewed. Status post C-scope Sunday that was negative. CRRT started Sunday as well. Patient somewhat somnolent this morning. Awakens to loud verbal stimuli. Nods yes when asked if in pain, but unable to localize. Nods yes when asked if short of breath or if she has been coughing. No other ROS information obtainable. Per nursing, CRRT scheduled to stop later today. Infect Dis PN-Objective Data - Labs CBC & Chem 7: 04/15/18 03:53 04/15/18 03:53 Labs: Laboratory Results - last 24 hr 04/12/18 04/14/18 04/14/18 17:14 06:03 11:54 WBC RBC Hgb Hct MCV MCH MCHC RDW Plt Count MPV Immature Gran % Seg Neutrophils % Lymphocytes % Monocytes % Eosinophils % Basophils % Neutrophils # Lymphocytes # Monocytes # Eosinophils # Basophils # Nucleated RBCs/100 WBC Toxic Granulation Platelet Estimate Hypochromasia Poikilocytosis Anisocytosis PT INR Sodium Potassium Chloride Carbon Dioxide BUN Creatinine Est GFR ( Amer) Est GFR (Non-Af Amer) BUN/Creatinine Ratio Glucose POC Glucose 177 H 193 H Calculated Osmolality Calcium Venous Ioniz Calcium Magnesium Vancomycin Trough Hepatitis A Ab Total POSITIVE A 04/14/18 04/14/18 04/14/18 12:17 14:11 18:03 WBC RBC Hgb Hct MCV MCH MCHC RDW Plt Count MPV Immature Gran % Seg Neutrophils % Lymphocytes % Monocytes % Eosinophils % Basophils % Neutrophils # Lymphocytes # Monocytes # Eosinophils # Basophils # Nucleated RBCs/100 WBC Toxic Granulation Platelet Estimate Hypochromasia Poikilocytosis Anisocytosis PT INR Sodium Potassium Chloride Carbon Dioxide BUN Creatinine Est GFR ( Amer) Est GFR (Non-Af Amer) BUN/Creatinine Ratio Glucose POC Glucose 214 H Calculated Osmolality Calcium Venous Ioniz Calcium 1.10 L 1.16 Magnesium Vancomycin Trough Hepatitis A Ab Total 04/14/18 04/14/18 04/15/18 19:50 20:02 00:10 WBC RBC Hgb Hct MCV MCH MCHC RDW Plt Count MPV Immature Gran % Seg Neutrophils % Lymphocytes % Monocytes % Eosinophils % Basophils % Neutrophils # Lymphocytes # Monocytes # Eosinophils # Basophils # Nucleated RBCs/100 WBC Toxic Granulation Platelet Estimate Hypochromasia Poikilocytosis Anisocytosis PT INR Sodium Potassium Chloride Carbon Dioxide BUN Creatinine Est GFR ( Amer) Est GFR (Non-Af Amer) BUN/Creatinine Ratio Glucose POC Glucose 187 H Calculated Osmolality Calcium Venous Ioniz Calcium 1.14 L Magnesium Vancomycin Trough 10 Hepatitis A Ab Total 04/15/18 04/15/18 04/15/18 02:09 03:53 03:53 WBC 25.9 H RBC 3.37 L Hgb 8.2 L Hct 28.5 L MCV 84.6 MCH 24.3 L MCHC 28.8 L RDW 23.6 H Plt Count 375 MPV 11.8 Immature Gran % 1.0 Seg Neutrophils % 93.4 Lymphocytes % 2.8 Monocytes % 2.7 Eosinophils % 0.0 Basophils % 0.1 Neutrophils # 24.2 H Lymphocytes # 0.7 Monocytes # 0.7 Eosinophils # 0.0 Basophils # 0.0 Nucleated RBCs/100 WBC 4.5 H Toxic Granulation Present A Platelet Estimate Normal Hypochromasia Present A Poikilocytosis 1+ A Anisocytosis 2+ A PT 14.6 H INR 1.3 Sodium Potassium Chloride Carbon Dioxide BUN Creatinine Est GFR ( Amer) Est GFR (Non-Af Amer) BUN/Creatinine Ratio Glucose POC Glucose Calculated Osmolality Calcium Venous Ioniz Calcium 1.02 L Magnesium Vancomycin Trough Hepatitis A Ab Total 04/15/18 04/15/18 04/15/18 03:53 03:53 04:07 WBC RBC Hgb Hct MCV MCH MCHC RDW Plt Count MPV Immature Gran % Seg Neutrophils % Lymphocytes % Monocytes % Eosinophils % Basophils % Neutrophils # Lymphocytes # Monocytes # Eosinophils # Basophils # Nucleated RBCs/100 WBC Toxic Granulation Platelet Estimate Hypochromasia Poikilocytosis Anisocytosis PT INR Sodium 138 Potassium 3.8 Chloride 107 Carbon Dioxide 30 H BUN 4 L Creatinine 0.37 L Est GFR ( Amer) > 60 Est GFR (Non-Af Amer) > 60 BUN/Creatinine Ratio 11 Glucose 175 H POC Glucose Calculated Osmolality 287 Calcium 9.3 Venous Ioniz Calcium 0.93 L Magnesium 2.1 Vancomycin Trough Hepatitis A Ab Total 04/15/18 07:55 WBC RBC Hgb Hct MCV MCH MCHC RDW Plt Count MPV Immature Gran % Seg Neutrophils % Lymphocytes % Monocytes % Eosinophils % Basophils % Neutrophils # Lymphocytes # Monocytes # Eosinophils # Basophils # Nucleated RBCs/100 WBC Toxic Granulation Platelet Estimate Hypochromasia Poikilocytosis Anisocytosis PT INR Sodium Potassium Chloride Carbon Dioxide BUN Creatinine Est GFR ( Amer) Est GFR (Non-Af Amer) BUN/Creatinine Ratio Glucose POC Glucose Calculated Osmolality Calcium Venous Ioniz Calcium 1.04 L Magnesium Vancomycin Trough Hepatitis A Ab Total Cultures: Cultures 04/11/18 11:55 Blood Culture - Preliminary Peripheral Venipuncture Culture is incubating and being continuously monitored for growth. Final report to follow. 04/11/18 11:53 Blood Culture - Preliminary Peripheral Venipuncture Culture is incubating and being continuously monitored for growth. Final report to follow. 04/05/18 13:38 Sputum Culture - Final Sputum 04/05/18 16:38 Sputum Culture - Final Sputum 03/27/18 04:15 Legionella Antigen - Final Urine,[place] Streptococcus pneumoniae Antigen (M - Final Serology 04/12/18 04/11/18 04/05/18 Range/Units 17:14 20:37 12:12 Urine Color Dark Yellow (Yellow) Urine Clarity Hazy A (Clear) Urine pH 5.0 (5.0-8.0) pH Units Ur Specific [place] 1.018 (1.010-1.025) Urine Protein Trace (Neg-Trace) mg/dL Urine Glucose (UA) Normal (Normal) mg/dL Urine Ketones Negative (Negative) mg/dL Urine Blood Negative (Negative) Urine Nitrite Negative (Negative) Urine Bilirubin Negative (Negative) Urine Urobilinogen Normal (Normal) mg/dL Ur Leukocyte Esterase Small H (Negative) Urine Microscopic RBC (0-3) per hpf Urine Microscopic WBC 15-30 H (0-3) per hpf Ur Squamous Epith Cells Many H (None-Few) per lpf Urine Bacteria Many H (None-Few) per hpf Hyaline Casts Few (None-Few) per lpf Urine Yeast Many H Ur Culture Indicated? NO. A (NO) Nasal Screen MRSA (PCR) (Negative) Stl C. cayetanensis PCR (Not detect) Stool Rotavirus A PCR (Not detect) Stl Adenov F 40/41 PCR (Not detect) Stool Astrovirus (PCR) (Not detect) Stool Campylobacter PCR (Not detect) Stl C. diff Tox B Gene (Negative) Stl C. diff Tox A/B PCR (Not detect) Stool Cryptosporidium PCR (Not detect) Stl Sh Tox Pr E STEC PCR (Not detect) Stool E coli O157 PCR (Not detect) Stl Enterotoxigenic E PCR (Not detect) Stool EPEC (PCR) (Not detect) Stool EAEC (PCR) (Not detect) Stl E. histolytica PCR (Not detect) Stool Giardia Lamblia PCR (Not detect) Stool Salmonella PCR (Not detect) Stool Sapovirus (PCR) (Not detect) Stl P. shigelloides PCR (Not detect) Stl Shigella/EIEC PCR (Not detect) St Y.enterocolitica PCR (Not detect) Stool Vibrio (PCR) (Not detect) Stl Vibrio cholerae PCR (Not detect) Stl Norovirus GI/GII PCR (Not detect) Stl GI Panel (PCR) Com Chlamy pneumoniae PCR (Not Detect) Adenovirus (PCR) (Not Detect) B. pertussis DNA (PCR) (Not Detect) B.parapertussis DNA PCR (Not Detect) Coronavirus OC43 (PCR) (Not Detect) Coronavirus HKU1 (PCR) (Not Detect) Coronavirus 229E (PCR) (Not Detect) Coronavirus NL63 (PCR) (Not Detect) Hepatitis A Ab Total POSITIVE A (Negative) Human Metapneumovir PCR (Not Detect) Influenza A (H1) PCR (Not Detect) Influ A (H1N1/09) PCR (Not Detect) Influenza A (H3) PCR (Not Detect) Influenza A Untype (PCR) (Not Detect) Influenza Type B (PCR) (Not Detect) Mycoplasma pneumon IgG 0.48 H (<=0.09) U/L Mycoplasma pneumon IgM 0.13 (<=0.76) U/L M.pneumoniae DNA (PCR) (Not Detect) Parainfluenza 1 (PCR) (Not Detect) Parainfluenza 2 (PCR) (Not Detect) Parainfluenza 3 (PCR) (Not Detect) Parainfluenza 4 (PCR) (Not Detect) RSV (PCR) (Not Detect) Entero/Rhino (PCR) (Not Detect) 04/05/18 04/05/18 03/29/18 Range/Units 09:20 09:20 08:40 Urine Color (Yellow) Urine Clarity (Clear) Urine pH (5.0-8.0) pH Units Ur Specific [place] (1.010-1.025) Urine Protein (Neg-Trace) mg/dL Urine Glucose (UA) (Normal) mg/dL Urine Ketones (Negative) mg/dL Urine Blood (Negative) Urine Nitrite (Negative) Urine Bilirubin (Negative) Urine Urobilinogen (Normal) mg/dL Ur Leukocyte Esterase (Negative) Urine Microscopic RBC (0-3) per hpf Urine Microscopic WBC (0-3) per hpf Ur Squamous Epith Cells (None-Few) per lpf Urine Bacteria (None-Few) per hpf Hyaline Casts (None-Few) per lpf Urine Yeast Ur Culture Indicated? (NO) Nasal Screen MRSA (PCR) Negative (Negative) Stl C. cayetanensis PCR (Not detect) Stool Rotavirus A PCR (Not detect) Stl Adenov F 40/41 PCR (Not detect) Stool Astrovirus (PCR) (Not detect) Stool Campylobacter PCR (Not detect) Stl C. diff Tox B Gene (Negative) Stl C. diff Tox A/B PCR (Not detect) Stool Cryptosporidium PCR (Not detect) Stl Sh Tox Pr E STEC PCR (Not detect) Stool E coli O157 PCR (Not detect) Stl Enterotoxigenic E PCR (Not detect) Stool EPEC (PCR) (Not detect) Stool EAEC (PCR) (Not detect) Stl E. histolytica PCR (Not detect) Stool Giardia Lamblia PCR (Not detect) Stool Salmonella PCR (Not detect) Stool Sapovirus (PCR) (Not detect) Stl P. shigelloides PCR (Not detect) Stl Shigella/EIEC PCR (Not detect) St Y.enterocolitica PCR (Not detect) Stool Vibrio (PCR) (Not detect) Stl Vibrio cholerae PCR (Not detect) Stl Norovirus GI/GII PCR (Not detect) Stl GI Panel (PCR) Com Chlamy pneumoniae PCR Not Detected (Not Detect) Adenovirus (PCR) Not Detected (Not Detect) B. pertussis DNA (PCR) Not Detected (Not Detect) B.parapertussis DNA PCR Not Detected (Not Detect) Coronavirus OC43 (PCR) Not Detected (Not Detect) Coronavirus HKU1 (PCR) Not Detected (Not Detect) Coronavirus 229E (PCR) Not Detected (Not Detect) Coronavirus NL63 (PCR) Not Detected (Not Detect) Hepatitis A Ab Total (Negative) Human Metapneumovir PCR Not Detected (Not Detect) Influenza A (H1) PCR Not Detected (Not Detect) Influ A (H1N1/09) PCR Not Detected (Not Detect) Influenza A (H3) PCR Not Detected (Not Detect) Influenza A Untype (PCR) Not Detected (Not Detect) Influenza Type B (PCR) Not Detected (Not Detect) Mycoplasma pneumon IgG 0.30 H (<=0.09) U/L Mycoplasma pneumon IgM 0.06 (<=0.76) U/L M.pneumoniae DNA (PCR) Not Detected (Not Detect) Parainfluenza 1 (PCR) Not Detected (Not Detect) Parainfluenza 2 (PCR) Not Detected (Not Detect) Parainfluenza 3 (PCR) Not Detected (Not Detect) Parainfluenza 4 (PCR) Not Detected (Not Detect) RSV (PCR) Not Detected (Not Detect) Entero/Rhino (PCR) Not Detected (Not Detect) 03/27/18 03/26/18 03/26/18 Range/Units 04:15 20:10 20:10 Urine Color Yellow (Yellow) Urine Clarity Clear (Clear) Urine pH 5.5 (5.0-8.0) pH Units Ur Specific [place] 1.023 (1.010-1.025) Urine Protein Negative (Neg-Trace) mg/dL Urine Glucose (UA) Normal (Normal) mg/dL Urine Ketones Negative (Negative) mg/dL Urine Blood Trace H (Negative) Urine Nitrite Negative (Negative) Urine Bilirubin Negative (Negative) Urine Urobilinogen Normal (Normal) mg/dL Ur Leukocyte Esterase Small H (Negative) Urine Microscopic RBC 3-5 H (0-3) per hpf Urine Microscopic WBC 5-15 H (0-3) per hpf Ur Squamous Epith Cells Many H (None-Few) per lpf Urine Bacteria None Seen (None-Few) per hpf Hyaline Casts Few (None-Few) per lpf Urine Yeast Test Not Performed Ur Culture Indicated? NO. A (NO) Nasal Screen MRSA (PCR) (Negative) Stl C. cayetanensis PCR Not detected (Not detect) Stool Rotavirus A PCR Not detected (Not detect) Stl Adenov F 40/41 PCR Not detected (Not detect) Stool Astrovirus (PCR) Not detected (Not detect) Stool Campylobacter PCR Not detected (Not detect) Stl C. diff Tox B Gene Positive A (Negative) Stl C. diff Tox A/B PCR See reflex test A (Not detect) Stool Cryptosporidium PCR Not detected (Not detect) Stl Sh Tox Pr E STEC PCR Not detected (Not detect) Stool E coli O157 PCR Not detected (Not detect) Stl Enterotoxigenic E PCR Not detected (Not detect) Stool EPEC (PCR) Not detected (Not detect) Stool EAEC (PCR) Not detected (Not detect) Stl E. histolytica PCR Not detected (Not detect) Stool Giardia Lamblia PCR Not detected (Not detect) Stool Salmonella PCR Not detected (Not detect) Stool Sapovirus (PCR) Not detected (Not detect) Stl P. shigelloides PCR Not detected (Not detect) Stl Shigella/EIEC PCR Not detected (Not detect) St Y.enterocolitica PCR Not detected (Not detect) Stool Vibrio (PCR) Not detected (Not detect) Stl Vibrio cholerae PCR Not detected (Not detect) Stl Norovirus GI/GII PCR Not detected (Not detect) Stl GI Panel (PCR) Com See below Chlamy pneumoniae PCR (Not Detect) Adenovirus (PCR) (Not Detect) B. pertussis DNA (PCR) (Not Detect) B.parapertussis DNA PCR (Not Detect) Coronavirus OC43 (PCR) (Not Detect) Coronavirus HKU1 (PCR) (Not Detect) Coronavirus 229E (PCR) (Not Detect) Coronavirus NL63 (PCR) (Not Detect) Hepatitis A Ab Total (Negative) Human Metapneumovir PCR (Not Detect) Influenza A (H1) PCR (Not Detect) Influ A (H1N1/09) PCR (Not Detect) Influenza A (H3) PCR (Not Detect) Influenza A Untype (PCR) (Not Detect) Influenza Type B (PCR) (Not Detect) Mycoplasma pneumon IgG (<=0.09) U/L Mycoplasma pneumon IgM (<=0.76) U/L M.pneumoniae DNA (PCR) (Not Detect) Parainfluenza 1 (PCR) (Not Detect) Parainfluenza 2 (PCR) (Not Detect) Parainfluenza 3 (PCR) (Not Detect) Parainfluenza 4 (PCR) (Not Detect) RSV (PCR) (Not Detect) Entero/Rhino (PCR) (Not Detect) Exam - Constitutional Vitals: Temp Pulse Resp BP Pulse Ox 98.6 F 72 21 114/48 100 04/15/18 08:00 04/15/18 08:00 04/15/18 08:00 04/15/18 08:00 04/15/18 08:00 General appearance: average body habitus, cooperative, no acute distress - Head Head exam: Present: atraumatic, normal inspection, normocephalic - Eye Eye exam: Present: EOMI, normal appearance, PERRL Pupils: Present: normal accommodation - ENT ENT exam: Present: mucous membranes dry - Neck Neck exam: Present: normal inspection Additional comments: Temporary HD line noted to the right neck with transparent dressing C/D/I. - Respiratory Respiratory exam: Present: CTAB. Absent: rales, respiratory distress, rhonchi, wheezes - Cardiovascular Cardiovascular exam: Present: RRR, +S1, +S2 - GI/Abdominal GI/Abdominal exam: Present: hypoactive bowel sounds, soft, tenderness (RUQ). Absent: distended Additional comments: Chandra catheter noted with scant yellow urine. - Extremities Exam Extremities exam: Present: normal inspection. Absent: joint swelling, pedal edema, tenderness - Neurological Exam Neurological exam: Present: alert, oriented X3, no focal deficits - Psychiatric Psychiatric exam: Present: normal affect, normal mood - Skin Skin exam: Present: dry, intact, normal color, warm Consult Discharge Plan - Plan Referrals: Kathy Acosta DO [Resident] - - Attending Attestation I examined this patient and my medical decision-making was reviewed with the Resident Physician. I agree with the documented findings, disposition and treatment plan as described except to the extent set forth below.
[2018-04-15 10:08] LABS: VBG Ionized Calcium 1.17 mmol/L (1.15-1.35)
[2018-04-15] MEDS: Norepinephrine 4 MG in D5% in Water 250 ML IVC SCH (10:16)
[2018-04-15 10:51] LABS: Phosphorous < 1.0 mg/dL (2.7-4.5)
--- NOTE | 2018-04-15 11:36 | Nephrology Progress Note ---
Date of Encounter: 04/15/18 Time of Encounter: 09:15 - Assessment and Plan (1) Acute kidney injury Current Visit: Yes Status: Acute I reviewed the hand-off info from my colleague and reviewed the labs, vitals, imaging, progress notes and meds: SCr peaked near 1.5 on Sunday and she had an impressive lactic acidosis with oligoanuria; she was started immediately on CVVHDF with a relative high effluent dose along with Citrate. Her LFTs were quite elevated though. I noticed a low Phos a few days ago. Today while rounding earlier this AM, I gave a verbal order to quickly recheck a serum Phos , since the Lindsay has likely cleared/removed/lowered the serum Phos even more; and it turns out that she is very hypophosmatemic. I recommend immediate replacement, and I spoke with the COMBER SETTER. Plus I have already slowed the Primsa so as to minimize the clearance (Dialysate was 1000mL/hr and Replacement fluid was 1500mL/hr with an ED of near 50), to a Dialysate of 750 and Replacement Fluid of 750. She is now getting alkalotic with this AM's labs and with her elevated LFTs, the citrate will need to be stopped, since this may induce Citrate toxicity/alkalosis. The alkalosis may also be from a volume contraction. Fortunately the Filter has not clotted and she will soon have reached the 72hr point, but if the filter clots today then I will not resume Lindsay. If the filter does not clot, I recommend stopping Lindsay at 6pm. She does not need further clearance for now. Volume status: she has no peripheral edema on my exam, but since her UOP is still oligoanuria, I would rather recommend using Diuretics if needed going forward. I would suspect her SCr to rise by tomorrow morning without Lindsay, and I will plan to reassess for [employer] if needed. CCT of 40 min including chart review, face to face/exam, communication with the COMBER SETTER during rounds and subsequent calls. Thank you. (2) Hypophosphatemia Current Visit: Yes Status: Acute See above. (3) Elevated transaminase level Current Visit: Yes Status: Acute See above. (4) Anemia Current Visit: Yes Status: Acute Goal Hgb is 10-11, and I will assess for EPO and or IV iron as needed. Qualifiers: Anemia type: unspecified type Qualified Code(s): D64.9 - Anemia, unspecified (5) Acute and chronic respiratory failure with hypoxia Current Visit: Yes Status: Acute As per primary (6) C. difficile colitis Current Visit: Yes Status: Acute As per primary (7) History of CVA (cerebrovascular accident) Current Visit: No Status: Chronic Subjective Principal diagnosis: Sepsis Interval history: Pt was seen/examined earlier in the day. She was seen while on Lindsay and I reviewed her chart, spoke with the ICU team. She voiced feeling tired but did not affirm CP or cramping while on Lindsay. Objective - Vital Signs Vital signs: Vital Signs Temp Pulse Resp BP Pulse Ox 04/15/18 11:00 68 25 120/46 95 04/15/18 10:00 70 22 131/50 99 04/15/18 09:00 71 28 118/50 100 04/15/18 08:00 98.6 F 72 21 114/48 100 04/15/18 07:59 21 114/48 100 04/15/18 07:00 76 31 95/46 98 04/15/18 06:00 70 23 135/55 100 04/15/18 05:00 69 22 112/51 98 04/15/18 04:30 97.9 F 73 26 108/50 99 04/15/18 03:42 22 110/53 97 04/15/18 03:00 70 21 95/47 96 04/15/18 02:00 73 26 134/52 99 04/15/18 01:30 72 20 119/49 92 04/15/18 00:30 96.8 F L 72 16 144/54 98 04/15/18 00:00 71 04/14/18 23:48 20 134/55 98 04/14/18 23:00 66 16 148/56 100 04/14/18 22:00 65 20 133/51 97 04/14/18 21:00 73 18 136/52 99 04/14/18 20:30 97.1 F L 72 20 145/56 97 04/14/18 20:01 20 93 04/14/18 19:00 71 19 162/58 96 04/14/18 18:00 71 28 121/56 97 04/14/18 17:00 96.6 F L 69 16 118/49 96 04/14/18 16:00 94.0 F L 66 16 138/52 94 04/14/18 15:41 60 138/52 97 04/14/18 15:00 60 14 161/59 100 04/14/18 14:38 18 171/66 97 04/14/18 14:00 57 18 171/66 100 04/14/18 13:00 57 23 124/57 92 04/14/18 12:00 95.3 F L 61 18 161/59 96 Intake and Output 04/14/18 04/15/18 04/15/18 23:59 07:59 15:59 Intake Total 703.0 / 703.0 1450 / 1450 280 / 280 Output Total 1661 / 1661 1591 / 1591 1090 / 1090 Balance -958.0 / -958.0 -141 / -141 -810 / -810 Intake: IV Fluids 703.0 / 703.0 1450 / 1450 280 / 280 Calcium Chloride 4,000 MG In 0. 300 / 300 1040 / 1040 9 % Sodium Chloride 1,000 ML @ 40 mls/hr CRRT CONT [facility] Rx#: [id number] PrismaSATE BGK 4/2.5 5,000 ML @ 0 / 0 0 / 0 0 / 0 2000 mls/hr CRRT CONT [facility] Rx#: [id number] PRECEDEX Premix 400 mcg In 100 95 / 95 100 / 100 80 / 80 ml @ 0.2 MCG/KG/HR 2.97 mls/hr IVC .Q24H [facility] Rx#:[id number] Levophed 4 MG In Dextrose 5% 8.0 / 8.0 250 ML @ 5 MCG/MIN 19.05 mls/hr IVC CONT [facility] Rx#:[id number] Calcium Gluconate 1,000 MG In 0 110 / 110 .9 % Sodium Chloride 100 ML @ 220 mls/hr IVPB ONCE PRN Rx#: [id number] Flagyl Premix 500 MG/100 ML 500 100 / 100 100 / 100 100 / 100 mg In 100 ml @ 100 mls/hr IVPB Q8HR [facility] Rx#:[id number] Zosyn 3.375 GM In 0.9 % Sodium 100 / 100 100 / 100 Chloride (Mini-Bag +) 100 ML @ 25 mls/hr IVPB Q8HR [facility] Rx#: [id number] Vancocin 500 MG In 0.9 % Sodium 100 / 100 100 / 100 Chloride (Mini-Bag +) 100 ML @ 100 mls/hr IVPB Q12H [facility] Rx#: [id number] Oral 0 / 0 0 / 0 0 / 0 Output: Lindsay 1652 / 1652 1586 / 1586 1090 / 1090 Catheter 5 / 5 0 / 0 Other: Meal NPO Weight 67.5 kg 65.2 kg Blood Glucose* 214 175 Patient Weight 04/15/18 23:59 Weight 65.2 kg - General Appearance Exam: General appearance: Present: appeared comfortable while on Lindsay, but cachectic , fatigue appearing and frail EENT: Present: ATNC, mucous membranes moist Neck: Present: supple Respiratory: Present: clear Cardiology: Present: no edema, normal S1, normal S2 Dialysis Vascular Access: Venous Catheter (Right IJ temporary HD catheter in place) Gastrointestinal: Present: normoactive bowel sounds, no tenderness, no guarding Integumentary: Present: no rash, warm and dry Neurologic: Present: no asterixis, alert and oriented x3 Additional Comments: Right UE and RLE hemiparesis with some mild right sided facial droop (appears chronic). Musculoskeletal: Present: no erythema, no cyanosis Psychiatric: Present: mood/affect appropriate, cooperative - Lab 04/16/18 03:43 04/16/18 03:43 Most recent lab results ABG pH 7.36 pH Units (7.32-7.45) 04/12/18 21:32 ABG pCO2 51 mmHg (35-45) H 04/12/18 21:32 ABG pO2 84 mmHg (85-104) L 04/12/18 21:32 ABG HCO3 29 mEq/L (21-27) H 04/12/18 21:32 ABG O2 Saturation 96 % (95-98) 04/12/18 21:32 Calcium 9.3 mg/dL (8.6-10.3) 04/15/18 03:53 Phosphorus < 1.0 mg/dL (2.7-4.5) L* 04/15/18 03:53 Magnesium 2.1 mg/dL (1.6-2.6) 04/15/18 03:53 Consult Discharge Plan - Plan Referrals: Kathy Acosta DO [Resident] -
[2018-04-15 15:57] LABS: VBG Ionized Calcium 0.98 mmol/L (1.15-1.35)
[2018-04-15] MEDS ORDERED: Naloxone 0.4 MG/ML INJ IVP PRN (20:43)
[2018-04-15] MEDS ORDERED: Ipratropium/Albuterol Neb 3 ML IH PRN (20:43)
[2018-04-15] MEDS ORDERED: Saliva Stimulant 100ml BOTTLE PO PRN (20:43)
[2018-04-15] MEDS ORDERED: *HR* Alteplase (Cathflo) 2 MG VIAL IVP PRN (20:43)
[2018-04-15] MEDS ORDERED: Calcium Chloride 4,000 MG in 0.9 % Sodium Chloride 1,000 ML CRRT SCH (20:43)
[2018-04-15] MEDS ORDERED: *HR* Heparin 5,000 UNIT/ML VIAL IV PRN (20:43)
[2018-04-15] MEDS ORDERED: Calcium Gluconate 2,000 MG in 0.9 % Sodium Chloride 100 ML IVPB PRN (20:43)
[2018-04-15] MEDS ORDERED: D5% in Water 1,000 ML IVC PRN (20:43)
[2018-04-15] MEDS ORDERED: Dextrose Gel 15 GM/37.5 ML TUBE PO PRN ×2 (20:43)
[2018-04-15] MEDS ORDERED: Chloraseptic Spray 177 ML BOTTLE MM PRN (20:43)
[2018-04-15] MEDS ORDERED: Ondansetron 4 MG/2 ML VIAL IVP PRN (20:43)
[2018-04-15] MEDS ORDERED: PrismaSATE BGK 4/2.5 5,000 ML CRRT SCH ×2 (20:43)
[2018-04-15] MEDS: traZODone 50 MG TABLET PO SCH (22:17)
[2018-04-16] MEDS: Ipratropium/Albuterol Neb 3 ML IH SCH ×7 (00:05→23:54)
[2018-04-16] MEDS: Piperacillin/Tazobactam 3.375 GM in 0.9 % Sodium Chloride Mini Bag 100 ML IVPB SCH ×4 (00:14→23:24)
[2018-04-16] MEDS: Insulin LISPRO 300 UNITS/3 ML VIAL SQ SCH ×5 (00:20→21:31)
[2018-04-16 04:01] LABS: Hematocrit 27.8 % (35.3-44.9); Mean Corpuscular HGB Conc 28.8 g/dL (31.6-35.5); Mean Corpuscular Hemoglobin 24.1 pg (28.0-33.3); Mean Corpuscular Volume 83.7 fL (83.0-100.0); Nucleated Red Blood Cells 3.4 /100 WBC (0); Platelet Count 348 K/mcL (140-400); Red Blood Count 3.32 M/mcL (3.82-4.97); Red Cell Distribution Width 24.5 % (11.5-14.5)
[2018-04-16 04:04] LABS: INR 1.3; Prothrombin Time 14.5 Seconds (9.4-12.1)
[2018-04-16 04:14] LABS: Alanine Aminotransferase 333 Units/L (7-52); Albumin 2.7 g/dL (3.5-5.7); Albumin/Globulin Ratio 0.9 (1.1-2.2); Alkaline Phosphatase 250 Units/L (34-104); Aspartate Amino Transferase 178 Units/L (13-39); BUN/Creatinine Ratio 13 (6-26); Bilirubin,Direct 0.5 mg/dL (0.0-0.2); Bilirubin,Indirect 0.3 mg/dL (0.0-1.2); Bilirubin,Total 0.8 mg/dL (0.3-1.0); Blood Urea Nitrogen 14 mg/dL (8-23); Carbon Dioxide 30 mEq/L (23-29); Chloride 106 mEq/L (98-107); Globulin 2.9 g/dL (2.4-3.5); Glucose 168 mg/dL (70-105); Osmolality,Calculated 302 (280-300); Sodium 144 mEq/L (136-145); Total Protein 5.6 g/dL (6.4-8.9); eGFR For Non-African Americans 50 (> 60)
[2018-04-16 04:23] LABS: Anisocytosis 1+ (Not Present); Hypochromasia Present (Not Present); Lymphocytes # 1.3 K/mcL (0.6-4.6); Neutrophils # 31.5 K/mcL (1.6-8.9); Platelet Estimate Normal (Normal)
[2018-04-16] MEDS: Pantoprazole 40 MG VIAL IVP SCH ×2 (05:49→17:09)
[2018-04-16] MEDS: Gabapentin 100 MG CAPSULE PO SCH ×3 (08:31→21:24)
[2018-04-16] MEDS ORDERED: 0.9 % Sodium Chloride Mini Bag 100 ML ONE (08:46)
[2018-04-16] MEDS: predniSONE 20 MG TABLET PO SCH (09:11)
[2018-04-16] MEDS: Aspirin 81 MG TAB.CHEW PO SCH (09:11)
[2018-04-16] MEDS: Lactobacillus 1 EACH CAP.SPRINK PO SCH ×2 (09:11→21:23)
[2018-04-16] MEDS: Sucralfate 1 GM TABLET PO SCH ×3 (09:11→17:09)
[2018-04-16] MEDS: Magnesium Oxide 400 MG TABLET PO SCH (09:12)
[2018-04-16] MEDS: Vancomycin Oral Soln 125 MG/2.5 ML UDC PO SCH ×4 (09:13→21:24)
[2018-04-16] MEDS: Vancomycin 500 MG in 0.9 % Sodium Chloride Mini Bag 100 ML IVPB SCH ×2 (09:59→21:24)
--- NOTE | 2018-04-16 10:38 | Nephrology Progress Note ---
Date of Encounter: 04/16/18 Time of Encounter: 09:45 - Assessment and Plan (1) Acute kidney injury Current Visit: Yes Status: Acute Oliguric NIGEL. SCr has tres since stopping CRRT but she is not uremic, nor acidotic, nor fluid overloaded nor hyperkalemic, so I do not recommend HD today. However, we should keep the Rt IJ temporary HD catheter in place until her SCr reaches a plateau. She was essentially volume depleted appearing yesterday, and appears more euvolemic today on exam. Continue strict I/Os, daily weights, and to follow a renal protective strategy by avoiding nephrotoxic Rx as able. Dose Rx with the CrCl that is expected to appear worse again tomorrow (the Lindsay from last week/weekend artificially lower her SCr). (2) Hypophosphatemia Current Visit: Yes Status: Acute Corrected today after stopping Lindsay and providing replacement. Will monitor. (3) Elevated transaminase level Current Visit: Yes Status: Acute As per primary. (4) Anemia Current Visit: Yes Status: Acute Goal Hgb is 10-11, and I will assess for EPO and or IV iron as needed. Qualifiers: Anemia type: unspecified type Qualified Code(s): D64.9 - Anemia, unspecified (5) Acute and chronic respiratory failure with hypoxia Current Visit: Yes Status: Acute As per primary (6) C. difficile colitis Current Visit: Yes Status: Acute As per primary (7) History of CVA (cerebrovascular accident) Current Visit: No Status: Chronic As per primary. Subjective Principal diagnosis: Sepsis Interval history: Pt was seen/examined in the 2N unit. She was laying on her left side and reported feeling relatively tired today but did not affirm N/V. She could not tell me or recall when she had her CVA that induced the right sided weakness, but she did ask me to reposition her several times, which I happily helped her reposition to her left side. She transferred out of the ICU yesterday after stopping CRRT. Objective - Vital Signs Vital signs: Vital Signs Temp Pulse Resp BP Pulse Ox 04/16/18 08:10 98.8 F 98 21 90/61 92 04/16/18 07:18 31 103/75 92 04/16/18 04:12 21 99 04/16/18 03:40 98.4 F 76 20 103/75 97 04/16/18 00:05 19 98/67 98 04/15/18 23:46 98.0 F 79 20 98/67 95 04/15/18 20:39 19 98 04/15/18 20:20 98.9 F 92 20 74/63 96 04/15/18 18:00 84 33 131/53 99 04/15/18 17:00 86 20 133/52 98 04/15/18 16:15 17 99 04/15/18 16:00 80 17 126/53 99 04/15/18 15:30 78 04/15/18 15:00 97.9 F 78 15 117/51 98 04/15/18 14:00 77 24 102/45 91 04/15/18 13:00 71 27 139/54 100 04/15/18 11:59 97.5 F L 73 29 122/50 96 04/15/18 11:53 68 04/15/18 11:39 27 103/42 94 04/15/18 11:00 68 25 120/46 95 Intake and Output 04/15/18 04/16/18 04/16/18 23:59 07:59 15:59 Intake Total 100 / 100 100 / 100 Output Total 296 / 296 Balance -196 / -196 100 / 100 Intake: IV Fluids 100 / 100 100 / 100 Zosyn 3.375 GM In 0.9 % Sodium 100 / 100 Chloride (Mini-Bag +) 100 ML @ 25 mls/hr IVPB Q8HR [facility] Rx#: [id number] Vancocin 500 MG In 0.9 % Sodium 100 / 100 Chloride (Mini-Bag +) 100 ML @ 100 mls/hr IVPB Q12H [facility] Rx#: [id number] Oral 0 / 0 Output: Lindsay 276 / 276 Catheter 20 / 20 Other: Meal NPO Weight 63 kg Blood Glucose* 152 158 Patient Weight 04/16/18 23:59 Weight 63 kg - General Appearance General appearance: Present: appears started age, cachectic, fatigue, frail EENT: Present: ATNC, mucous membranes moist Neck: Present: supple Respiratory: Present: clear Cardiology: Present: no edema, normal S1, normal S2 Dialysis Vascular Access: Venous Catheter (Right IJ temporary HD catheter in place) Gastrointestinal: Present: normoactive bowel sounds, no tenderness, no guarding Integumentary: Present: no rash, warm and dry Neurologic: Present: no asterixis, alert and oriented x3 Additional Comments: Right UE and RLE hemiparesis with some mild right sided facial droop (appears chronic). Musculoskeletal: Present: no erythema, no cyanosis Psychiatric: Present: mood/affect appropriate, cooperative - Lab 04/16/18 03:43 04/16/18 03:43 Most recent lab results ABG pH 7.36 pH Units (7.32-7.45) 04/12/18 21:32 ABG pCO2 51 mmHg (35-45) H 04/12/18 21:32 ABG pO2 84 mmHg (85-104) L 04/12/18 21:32 ABG HCO3 29 mEq/L (21-27) H 04/12/18 21:32 ABG O2 Saturation 96 % (95-98) 04/12/18 21:32 Calcium 10.0 mg/dL (8.6-10.3) 04/16/18 03:43 Phosphorus 4.0 mg/dL (2.7-4.5) 04/16/18 03:43 Magnesium 2.1 mg/dL (1.6-2.6) 04/16/18 03:43 - Imaging Additional Comments: I reviewed the CT abd noncontrast study from earlier in this admission: No acute or suspicious renal abnormalities are identified. No hydronephrosis or hydroureter is found. Consult Discharge Plan - Plan Referrals: Kathy Acosta DO [Resident] -
--- NOTE | 2018-04-16 13:14 | Internal Med Progress Note ---
<Bruce Delgado - Last Filed: 04/16/18 17:38> Hospitalist Progress Note - Encounter Date of Encounter: 04/16/18 - Exam Vitals: Temp Pulse Resp BP Pulse Ox 99.7 F H 105 31 90/54 98 04/16/18 11:48 04/16/18 11:48 04/16/18 11:56 04/16/18 11:56 04/16/18 13:40 - Assessment and Plan (1) HTN (hypertension) Current Visit: Yes Status: Chronic (2) CAD (coronary artery disease) Current Visit: Yes Status: Chronic (3) Chest pain Current Visit: Yes Status: Resolved (4) Abdominal pain Current Visit: Yes Status: Acute (5) COPD (chronic obstructive pulmonary disease) Current Visit: Yes Status: Acute (6) Pneumonia Current Visit: Yes Status: Resolved (7) C. difficile colitis Current Visit: Yes Status: Acute (8) Cholelithiasis Current Visit: Yes Status: Ruled-out (9) Chronic anemia Current Visit: Yes Status: Acute (10) Diabetes type 2, controlled Current Visit: Yes Status: Acute (11) Acute and chronic respiratory failure with hypoxia Current Visit: Yes Status: Acute (12) Hematochezia Current Visit: Yes Status: Acute (13) Pulmonary nodule Current Visit: Yes Status: Acute (14) Leukocytosis Current Visit: Yes Status: Acute (15) Hepatitis A Current Visit: Yes Status: Acute - Time Spent with Patient Total time spent is greater than 50% in coordination of care (as documented) at patient's floor/unit and/or counseling patient: Internal Medicine: Result - Labs CBC & Chem 7: 04/16/18 03:43 04/16/18 03:43 Labs: Short CBC 04/16/18 Range/Units 03:43 WBC 32.8 H* (4.3-11.1) K/mcL Hgb 8.0 L (11.5-15.4) g/dL Hct 27.8 L (35.3-44.9) % Plt Count 348 (140-400) K/mcL Neutrophils # 31.5 H (1.6-8.9) K/mcL BMP 04/16/18 03:43 Sodium 144 Potassium 4.0 Chloride 106 Carbon Dioxide 30 H BUN 14 Creatinine 1.10 Glucose 168 H Calcium 10.0 Liver Function 04/16/18 Range/Units 03:43 Total Bilirubin 0.8 (0.3-1.0) mg/dL Direct Bilirubin 0.5 H (0.0-0.2) mg/dL AST 178 H (13-39) Units/L ALT 333 H (7-52) Units/L Alkaline Phosphatase 250 H (34-104) Units/L Albumin 2.7 L (3.5-5.7) g/dL - ABG Interpretation ABG results: ABG ABG pH 7.36 pH Units (7.32-7.45) 04/12/18 21:32 ABG pCO2 51 mmHg (35-45) H 04/12/18 21:32 ABG pO2 84 mmHg (85-104) L 04/12/18 21:32 ABG O2 Saturation 96 % (95-98) 04/12/18 21:32 PT/INR, D-dimer PT 14.5 Seconds (9.4-12.1) H 04/16/18 03:43 Consult Discharge Plan - Plan Referrals: Kathy Acosta DO [Resident] - - Attending Attestation I examined this patient and my medical decision-making was reviewed with the Resident Physician on 04/16/18. I agree with the documented findings, disposition and treatment plan as described except to the extent set forth below. Ms Lauren is currently admitted for multiple issues including sepsis and acute renal failure. She remains moderate to high risk due to potential for worsening clinical status. Ms Lauren is currently on bipap. No fever or chills at this time. Abdominal discomfort present. No CP at this time. Exam alert Mod distress on bipap. Mucus membranes dry Heart distant and reg. Not tachy Scattered rhonchi Abd soft and diffusely tender. No peritoneal signs. L side weakness. I/P 1. Sepsis 2. Acute hepatitis A 3. Acute renal failure Further diagnoses and plan as above. <Lucero Salas - Last Filed: 04/16/18 23:09> Hospitalist Progress Note - Encounter Date of Encounter: 04/16/18 Time of Encounter: 10:00 - Subjective Interval History: Ms. Lauren was examined at bedside this morning. She was laying in bed on nasal on 04/12 can. She had no events overnight. She remained afebrile. Blood pressure was stable between 98/67 to 100/62. She was transferred from the ICU overnight. She is on Bipap at night and requiring 4 to 6 liters of supplemental oxygen. On 04/12 she became hypotensive and had a lactated of 9.3 and her white count had jumped to 44.8. In the ICU she was diagnosed with shock liver with extremely elevated AST and ALT. She was also noted to have no urinary output and require bianca. She was noted to have Hep A. Since her transfer from the ICU she is comfortable. She denied any abdominal pain, nausea, emesis, fever, chills, chest pain or shortness of breath. - Exam Vitals: Temp Pulse Resp BP Pulse Ox 99.7 F H 105 31 90/54 96 04/16/18 11:48 04/16/18 11:48 04/16/18 11:56 04/16/18 11:56 04/16/18 11:56 Exam: Constitutional: Alert, in no acute distress, on nasal canula HEENT: Normocephalic, atraumatic, dry mucus membranes Heart: Normal, regular rate and rhythm, no murmurs Lungs: lungs clear and equal bilaterally Abdomen: Soft, hypoactive bowel sounds, non tender Extremities: No edema of lower extremity but left hand was edematous and noted to be due to a tight bandage wrap, no clubbing; Skin: Skin warm and dry, no lesions, no rashes, no jaundice Psych: thought content congruent, appropriate affect Neurological Alert and oriented x 3, right upper and lower extremities paralysis due to previous CVA - Assessment and Plan (1) Sepsis Current Visit: Yes Status: Resolved Assessment and Plan: She progressed to septic shock on 04/12 and required vasopressors for one day. Her blood cultures remained negative. Likerly source secondary to pneumonia and hepatitis A. Blood cultures negative from 03/25 and negative 04/11. Plan: Continue pneumonia management, ID recommends continuing zosyn--day 17 total doses, received 12 days and stoppe dfor 2 days, restarted 5 days ago Continue IV vancomycin, per IDs recommendation Continue monitoring vitals CBC in the morning (2) Shock liver Current Visit: Yes Status: Acute Assessment and Plan: Resolved. Noted to have shock liver on 04/12. Her AST was 2981 on 04/12 and ALT were noted to be above 500. Statin was discontinued. She received n-acetylcysteine. Right upper ultrasound shwoed no evidence of hepatic venous thrombisis. Hepatitis A positive. Hepatitis B and C pending. Today her AST is 178 and ALT is 333. Alk phos 250 which is higher than her previous labs. Has no abdominal pain. Elevated alk phos could be due to cholelithiasis at presentation and was tested positive of IgG mitochondrial antibodies. Plan: Continue to monitor LFT tomorrow Hepatitis B and C pending (3) C. difficile colitis Current Visit: Yes Status: Acute Assessment and Plan: Diarrhea resolved but did not have oral intake, restarted oral intake today so will need to continue to monitor. Treatment regimen according to infectious disease. She did not show any evidence of pseudomembranous colitis and toxic megacolon during sigmoidoscopy on 04/12. Highly doubt that this contributed to the acute deterioration of clinical status. Plan: -ID recommends continuing oral vancomycin, day 20 -Continue to monitor stool for changes in consistency -Continue probiotics -Continue to monitor vitals and CBC (4) Pneumonia Current Visit: Yes Status: Resolved Assessment and Plan: CT chest on 04/03 showed multifocal PNA, greatest in the LLL. Patient had worsening left-sided infiltrates on 04/13. IV added vancomycin was added along with zosyn. She had V/Q mismatch in the ICU she remained stable. Plan: -Infectious disease and pulmonology consulted -Swallow eval negative for aspiration and started diet today -Continue zosyn (day 5 since restarted, received 12 says previously) IV vancomycin per ID recommendations -Continue to Bipap at night -CBC in the morning (5) COPD (chronic obstructive pulmonary disease) Current Visit: Yes Status: Acute Assessment and Plan: History of COPD, received prednisone during her admission. She is not in acute exacerbation, no cough or sputum production. Plan: -Continue with duoneb Q4h prn -Continue to wean O2 supplementation (6) NIGEL (acute kidney injury) Current Visit: Yes Status: Acute Assessment and Plan: Today creatinine is 1.10 and yesterday was 0.37. Had an NIGEL on 04/12, likely due to septic shock. She was anuric. Nephrology was consulted in the ICU and she received hemodialysis. Plan: Per nephrology recommendation for hemodialysis Continue strict I/Os Continue to dose medications renally (7) Diabetes type 2, controlled Current Visit: Yes Status: Acute Assessment and Plan: Has remained NPO for the past a few days. Her glucose today was 154. She is back on diet today. Plan: Continue sliding scale Continue to monitor Can add back long acting given how how glucose is after starting diet (8) Chronic anemia Current Visit: Yes Status: Acute Assessment and Plan: Anemia of chronic disease or iron deficiency. She is Hemoglobin today was 8.0 and has remained stable the past a few days. No source of emesis. Plan: -Continue to monitor CBC (9) Pulmonary nodule Current Visit: Yes Status: Acute Assessment and Plan: CT of the chest noted a small lobulated nodule on the right upper lung lobe posteriorly Plan: Need to be followed to resolution after pneumonia resolves outpatient (10) DVT prophylaxis Current Visit: Yes Status: Acute Assessment and Plan: SCDs - Time Spent with Patient Total time spent is greater than 50% in coordination of care (as documented) at patient's floor/unit and/or counseling patient: 25 - 35 minutes Plan of Care Discussed with: patient Internal Medicine: Result - Labs CBC & Chem 7: 04/16/18 03:43 04/16/18 03:43 Labs: Short CBC 04/16/18 Range/Units 03:43 WBC 32.8 H* (4.3-11.1) K/mcL Hgb 8.0 L (11.5-15.4) g/dL Hct 27.8 L (35.3-44.9) % Plt Count 348 (140-400) K/mcL Neutrophils # 31.5 H (1.6-8.9) K/mcL BMP 04/16/18 03:43 Sodium 144 Potassium 4.0 Chloride 106 Carbon Dioxide 30 H BUN 14 Creatinine 1.10 Glucose 168 H Calcium 10.0 Liver Function 04/16/18 Range/Units 03:43 Total Bilirubin 0.8 (0.3-1.0) mg/dL Direct Bilirubin 0.5 H (0.0-0.2) mg/dL AST 178 H (13-39) Units/L ALT 333 H (7-52) Units/L Alkaline Phosphatase 250 H (34-104) Units/L Albumin 2.7 L (3.5-5.7) g/dL - ABG Interpretation ABG results: ABG ABG pH 7.36 pH Units (7.32-7.45) 04/12/18 21:32 ABG pCO2 51 mmHg (35-45) H 04/12/18 21:32 ABG pO2 84 mmHg (85-104) L 04/12/18 21:32 ABG O2 Saturation 96 % (95-98) 04/12/18 21:32 PT/INR, D-dimer PT 14.5 Seconds (9.4-12.1) H 04/16/18 03:43 <Bruce Delgado - Last Filed: 04/16/18 17:38> (1) HTN (hypertension) Qualifiers: Hypertension type: essential hypertension Qualified Code(s): I10 - Essential (primary) hypertension (2) CAD (coronary artery disease) Qualifiers: Coronary Disease-Associated Artery/Lesion type: [place] artery [place] vs. transplanted heart: [place] heart Associated angina: without angina Qualified Code(s): I25.10 - Atherosclerotic heart disease of [place] coronary artery without angina pectoris (3) Chest pain Qualifiers: Chest pain type: chest pain due to myocardial ischemia Ischemic chest pain type: unstable angina pectoris Qualified Code(s): I20.0 - Unstable angina (4) Abdominal pain Qualifiers: Abdominal location: generalized Qualified Code(s): R10.84 - Generalized abdominal pain (5) COPD (chronic obstructive pulmonary disease) Qualifiers: COPD type: chronic bronchitis Chronic bronchitis type: mucopurulent Qualified Code(s): J41.1 - Mucopurulent chronic bronchitis (6) Pneumonia Qualifiers: Pneumonia type: due to unspecified organism Laterality: bilateral Lung location: lower lobe of lung Qualified Code(s): J18.1 - Lobar pneumonia, unspecified organism (8) Cholelithiasis Qualifiers: Cholelithiasis location: gallbladder Cholecystitis presence: without cholecystitis Biliary obstruction: without biliary obstruction Qualified Code( s): K80.20 - Calculus of gallbladder without cholecystitis without obstruction (10) Diabetes type 2, controlled Qualifiers: Diabetes mellitus residential insulin use: with residential use Diabetes mellitus complication status: with hyperglycemia Qualified Code(s): E11.65 - Type 2 diabetes mellitus with hyperglycemia; 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 terminal 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 (14) Leukocytosis Qualifiers: Leukocytosis type: other Qualified Code(s): D72.828 - Other elevated white blood cell count (15) Hepatitis A Qualifiers: Hepatic coma status: without hepatic coma Qualified Code(s): B15.9 - Hepatitis A without hepatic coma <Josue,Lucero - Last Filed: 04/16/18 23:09> (1) Sepsis Qualifiers: Sepsis type: sepsis due to unspecified organism Qualified Code(s): A41.9 - Sepsis, unspecified organism (4) Pneumonia Qualifiers: Pneumonia type: due to unspecified organism Laterality: bilateral Lung location: lower lobe of lung Qualified Code(s): J18.1 - Lobar pneumonia, unspecified organism (5) COPD (chronic obstructive pulmonary disease) Qualifiers: COPD type: chronic bronchitis Chronic bronchitis type: mucopurulent Qualified Code(s): J41.1 - Mucopurulent chronic bronchitis (7) Diabetes type 2, controlled Qualifiers: Diabetes mellitus bed bug exterminator insulin use: with bed bug exterminator use Diabetes mellitus complication status: with hyperglycemia Qualified Code(s): E11.65 - Type 2 diabetes mellitus with hyperglycemia; Z79.4 - care home (current) use of insulin
--- NOTE | 2018-04-16 14:10 | Infectious Disease Progress No ---
Date of Encounter: 04/16/18 Time of Encounter: 11:40 - Assessment and Plan (1) Sepsis Current Visit: No Status: Acute Progressed to septic shock requiring vasopressors with end organ damage. Likely secondary to pneumonia and Hepatitis A. WBC back up today. Vasopressors off. Hypothermia has resolved. Blood cultures obtained 03/25/18 are negative 2 sets. Repeat blood cultures drawn 04/11/18 are NGTD x 2 sets. Qualifiers: Sepsis type: sepsis due to unspecified organism Qualified Code(s): A41.9 - Sepsis, unspecified organism (2) Pneumonia Current Visit: Yes Status: Acute Location: Multifocal, greatest in the left lower lobe. Causative organism: Unclear. No evidence of aspiration noted on exam. Respiratory infectious panel was negative. Strep pneumococcal and legionella urinary antigens were negative. The patient has been able to provide us with 2 sputum cultures that are both negative. CT chest 04/08/18 showed improvement, but CT abdomen and pelvis 04/11/18 showed persistent LLL pneumonia. Completed 12 days of Zosyn and 6 days of Vanc. Repeat CXR in the AM. Continue Zosyn 3.375 grams IV Q8H. (day 5) Continue Vancomycin IV. Pharmacy to dose. Goal trough ~15. (day 5) Duration of treatment depends on the clinical picture. Monitor renal function and for drug toxicity and dose-adjust antibiotics. Qualifiers: Pneumonia type: due to unspecified organism Laterality: left Lung location: lower lobe of lung Qualified Code(s): J18.1 - Lobar pneumonia, unspecified organism (3) C. difficile colitis Current Visit: Yes Status: Acute Severe. Clinically, the patient's stools are more formed, but she is still stooling several times per day. Repeat CT of the abdomen and pelvis showed findings consistent with ileus and gastroenteritis on 04/08/[address] of the abdomen and pelvis 04/11/18 did not show any bowel thickening or toxic megacolon, but radiologist reports concern for ischemic bowel due to severe calcification of the mesenteric circulation. Status post colonoscopy 04/12/18 that was negative for pseudomembranous or toxic megacolon. IV Flagyl stopped by the primary team. Continue Vancomycin 125mg PO QID. (day 20). Duration of treatment depends on the clinical picture. (4) Abdominal pain Current Visit: Yes Status: Acute Secondary to C diff colitis and gastroenteritis and Hepatitis A. GI consulted. Appreciate recommendations. LFTs this morning markedly elevated and lactic acid 9. CT abdomen and pelvis on 04/03/2018: Cholelithiasis, small amount of gas within the bladder. Decreased small bowel distention with small bowel wall thickening in the left upper quadrant; no toxic megacolon. Repeat CT of the abdomen and pelvis 04/11/18 showed findings concerning for ischemic bowel. Status post colonoscopy 04/12/15 that was negative for pseudomembranous colitis or toxic megacolon. Pain management per the primary team. Qualifiers: Abdominal location: generalized Qualified Code(s): R10.84 - Generalized abdominal pain (5) Rectal bleeding Current Visit: Yes Status: Acute Patient started having bloody stools overnight. Etiology unclear. Not sure that it is from the C. diff since her stools are formed. Status post colonoscopy 04/12/18 that was negative for bleeding. Appears improved. Management and transfusion parameters per the primary team. (6) Elevated transaminase level Current Visit: Yes Status: Acute Likely secondary to Hepatitis A vs. shock liver. Trending down. Continue supportive care. (7) Lactic acidosis Current Visit: Yes Status: Resolved Likely secondary to sepsis. Improved. (8) Acute kidney injury Current Visit: Yes Status: Resolved Etiology unclear. Improved. Continue to trend. CRRT started 04/12/18, discontinued 04/15/18. (9) Hepatitis A Current Visit: Yes Status: Acute Hepatitis A antibody positive. Likely contributing to the elevated LFTs. Continue to trend LFTs and continue supportive care. Qualifiers: Hepatic coma status: without hepatic coma Qualified Code(s): B15.9 - Hepatitis A without hepatic coma - Subjective Interval history: Patient seen and examined. No acute events noted overnight. Lindsay stopped yesterday. Vasopressors off. Status post C-scope Sunday that was negative. Appears more alert today. Reports shortness of breath with productive cough and abdominal pain. Denies fevers, chills, or rigors. Denies chest pain. Denies nausea, vomiting, or diarrhea. Denies oral thrush. Per nursing, patient became hypoxic off BIPAP. Infect Dis PN-Objective Data - Labs CBC & Chem 7: 04/16/18 03:43 04/16/18 03:43 Labs: Laboratory Results - last 24 hr 04/15/18 04/15/1818 13:00 15:55 17:04 WBC RBC Hgb Hct MCV MCH MCHC RDW Plt Count MPV Seg Neutrophils % Lymphocytes % Neutrophils # Lymphocytes # Nucleated RBCs/100 WBC Platelet Estimate Hypochromasia Anisocytosis PT INR Sodium Potassium Chloride Carbon Dioxide BUN Creatinine Est GFR ( Amer) Est GFR (Non-Af Amer) BUN/Creatinine Ratio Glucose POC Glucose 191 H 182 H Calculated Osmolality Calcium Venous Ioniz Calcium 0.98 L Phosphorus Magnesium Total Bilirubin Direct Bilirubin Indirect Bilirubin AST ALT Alkaline Phosphatase Serum Total Protein Albumin Globulin Albumin/Globulin Ratio 04/15/18 04/16/18 04/16/18 20:24 00:17 03:43 WBC 32.8 H* RBC 3.32 L Hgb 8.0 L Hct 27.8 L MCV 83.7 MCH 24.1 L MCHC 28.8 L RDW 24.5 H Plt Count 348 MPV 13.0 H Seg Neutrophils % 96.0 Lymphocytes % 4.0 Neutrophils # 31.5 H Lymphocytes # 1.3 Nucleated RBCs/100 WBC 3.4 H Platelet Estimate Normal Hypochromasia Present A Anisocytosis 1+ A PT INR Sodium Potassium Chloride Carbon Dioxide BUN Creatinine Est GFR ( Amer) Est GFR (Non-Af Amer) BUN/Creatinine Ratio Glucose POC Glucose 152 H 154 H Calculated Osmolality Calcium Venous Ioniz Calcium Phosphorus Magnesium Total Bilirubin Direct Bilirubin Indirect Bilirubin AST ALT Alkaline Phosphatase Serum Total Protein Albumin Globulin Albumin/Globulin Ratio 04/16/18 04/16/18 04/16/18 03:43 03:43 03:43 WBC RBC Hgb Hct MCV MCH MCHC RDW Plt Count MPV Seg Neutrophils % Lymphocytes % Neutrophils # Lymphocytes # Nucleated RBCs/100 WBC Platelet Estimate Hypochromasia Anisocytosis PT 14.5 H INR 1.3 Sodium 144 Potassium 4.0 Chloride 106 Carbon Dioxide 30 H BUN 14 Creatinine 1.10 Est GFR ( Amer) > 60 Est GFR (Non-Af Amer) 50 L BUN/Creatinine Ratio 13 Glucose 168 H POC Glucose Calculated Osmolality 302 H Calcium 10.0 Venous Ioniz Calcium Phosphorus 4.0 Magnesium 2.1 Total Bilirubin 0.8 Direct Bilirubin 0.5 H Indirect Bilirubin 0.3 AST 178 H ALT 333 H Alkaline Phosphatase 250 H Serum Total Protein 5.6 L Albumin 2.7 L Globulin 2.9 Albumin/Globulin Ratio 0.9 L 04/16/18 05:35 WBC RBC Hgb Hct MCV MCH MCHC RDW Plt Count MPV Seg Neutrophils % Lymphocytes % Neutrophils # Lymphocytes # Nucleated RBCs/100 WBC Platelet Estimate Hypochromasia Anisocytosis PT INR Sodium Potassium Chloride Carbon Dioxide BUN Creatinine Est GFR ( Amer) Est GFR (Non-Af Amer) BUN/Creatinine Ratio Glucose POC Glucose 158 H Calculated Osmolality Calcium Venous Ioniz Calcium Phosphorus Magnesium Total Bilirubin Direct Bilirubin Indirect Bilirubin AST ALT Alkaline Phosphatase Serum Total Protein Albumin Globulin Albumin/Globulin Ratio Cultures: Cultures 04/11/18 11:55 Blood Culture - Final Peripheral Venipuncture No growth. Final report. 04/11/18 11:53 Blood Culture - Final Peripheral Venipuncture No growth. Final report. 04/05/18 13:38 Sputum Culture - Final Sputum 04/05/18 16:38 Sputum Culture - Final Sputum 03/27/18 04:15 Legionella Antigen - Final Urine,[place] Streptococcus pneumoniae Antigen (M - Final Serology 04/12/18 04/11/18 04/05/18 Range/Units 17:14 20:37 12:12 Urine Color Dark Yellow (Yellow) Urine Clarity Hazy A (Clear) Urine pH 5.0 (5.0-8.0) pH Units Ur Specific [place] 1.018 (1.010-1.025) Urine Protein Trace (Neg-Trace) mg/dL Urine Glucose (UA) Normal (Normal) mg/dL Urine Ketones Negative (Negative) mg/dL Urine Blood Negative (Negative) Urine Nitrite Negative (Negative) Urine Bilirubin Negative (Negative) Urine Urobilinogen Normal (Normal) mg/dL Ur Leukocyte Esterase Small H (Negative) Urine Microscopic RBC (0-3) per hpf Urine Microscopic WBC 15-30 H (0-3) per hpf Ur Squamous Epith Cells Many H (None-Few) per lpf Urine Bacteria Many H (None-Few) per hpf Hyaline Casts Few (None-Few) per lpf Urine Yeast Many H Ur Culture Indicated? NO. A (NO) Nasal Screen MRSA (PCR) (Negative) Stl C. cayetanensis PCR (Not detect) Stool Rotavirus A PCR (Not detect) Stl Adenov F 40/41 PCR (Not detect) Stool Astrovirus (PCR) (Not detect) Stool Campylobacter PCR (Not detect) Stl C. diff Tox B Gene (Negative) Stl C. diff Tox A/B PCR (Not detect) Stool Cryptosporidium PCR (Not detect) Stl Sh Tox Pr E STEC PCR (Not detect) Stool E coli O157 PCR (Not detect) Stl Enterotoxigenic E PCR (Not detect) Stool EPEC (PCR) (Not detect) Stool EAEC (PCR) (Not detect) Stl E. histolytica PCR (Not detect) Stool Giardia Lamblia PCR (Not detect) Stool Salmonella PCR (Not detect) Stool Sapovirus (PCR) (Not detect) Stl P. shigelloides PCR (Not detect) Stl Shigella/EIEC PCR (Not detect) St Y.enterocolitica PCR (Not detect) Stool Vibrio (PCR) (Not detect) Stl Vibrio cholerae PCR (Not detect) Stl Norovirus GI/GII PCR (Not detect) Stl GI Panel (PCR) Com Chlamy pneumoniae PCR (Not Detect) Adenovirus (PCR) (Not Detect) B. pertussis DNA (PCR) (Not Detect) B.parapertussis DNA PCR (Not Detect) Coronavirus OC43 (PCR) (Not Detect) Coronavirus HKU1 (PCR) (Not Detect) Coronavirus 229E (PCR) (Not Detect) Coronavirus NL63 (PCR) (Not Detect) Hepatitis A Ab Total POSITIVE A (Negative) Human Metapneumovir PCR (Not Detect) Influenza A (H1) PCR (Not Detect) Influ A (H1N1/09) PCR (Not Detect) Influenza A (H3) PCR (Not Detect) Influenza A Untype (PCR) (Not Detect) Influenza Type B (PCR) (Not Detect) Mycoplasma pneumon IgG 0.48 H (<=0.09) U/L Mycoplasma pneumon IgM 0.13 (<=0.76) U/L M.pneumoniae DNA (PCR) (Not Detect) Parainfluenza 1 (PCR) (Not Detect) Parainfluenza 2 (PCR) (Not Detect) Parainfluenza 3 (PCR) (Not Detect) Parainfluenza 4 (PCR) (Not Detect) RSV (PCR) (Not Detect) Entero/Rhino (PCR) (Not Detect) 04/05/18 04/05/18 03/29/18 Range/Units 09:20 09:20 08:40 Urine Color (Yellow) Urine Clarity (Clear) Urine pH (5.0-8.0) pH Units Ur Specific [place] (1.010-1.025) Urine Protein (Neg-Trace) mg/dL Urine Glucose (UA) (Normal) mg/dL Urine Ketones (Negative) mg/dL Urine Blood (Negative) Urine Nitrite (Negative) Urine Bilirubin (Negative) Urine Urobilinogen (Normal) mg/dL Ur Leukocyte Esterase (Negative) Urine Microscopic RBC (0-3) per hpf Urine Microscopic WBC (0-3) per hpf Ur Squamous Epith Cells (None-Few) per lpf Urine Bacteria (None-Few) per hpf Hyaline Casts (None-Few) per lpf Urine Yeast Ur Culture Indicated? (NO) Nasal Screen MRSA (PCR) Negative (Negative) Stl C. cayetanensis PCR (Not detect) Stool Rotavirus A PCR (Not detect) Stl Adenov F 40/41 PCR (Not detect) Stool Astrovirus (PCR) (Not detect) Stool Campylobacter PCR (Not detect) Stl C. diff Tox B Gene (Negative) Stl C. diff Tox A/B PCR (Not detect) Stool Cryptosporidium PCR (Not detect) Stl Sh Tox Pr E STEC PCR (Not detect) Stool E coli O157 PCR (Not detect) Stl Enterotoxigenic E PCR (Not detect) Stool EPEC (PCR) (Not detect) Stool EAEC (PCR) (Not detect) Stl E. histolytica PCR (Not detect) Stool Giardia Lamblia PCR (Not detect) Stool Salmonella PCR (Not detect) Stool Sapovirus (PCR) (Not detect) Stl P. shigelloides PCR (Not detect) Stl Shigella/EIEC PCR (Not detect) St Y.enterocolitica PCR (Not detect) Stool Vibrio (PCR) (Not detect) Stl Vibrio cholerae PCR (Not detect) Stl Norovirus GI/GII PCR (Not detect) Stl GI Panel (PCR) Com Chlamy pneumoniae PCR Not Detected (Not Detect) Adenovirus (PCR) Not Detected (Not Detect) B. pertussis DNA (PCR) Not Detected (Not Detect) B.parapertussis DNA PCR Not Detected (Not Detect) Coronavirus OC43 (PCR) Not Detected (Not Detect) Coronavirus HKU1 (PCR) Not Detected (Not Detect) Coronavirus 229E (PCR) Not Detected (Not Detect) Coronavirus NL63 (PCR) Not Detected (Not Detect) Hepatitis A Ab Total (Negative) Human Metapneumovir PCR Not Detected (Not Detect) Influenza A (H1) PCR Not Detected (Not Detect) Influ A (H1N1/09) PCR Not Detected (Not Detect) Influenza A (H3) PCR Not Detected (Not Detect) Influenza A Untype (PCR) Not Detected (Not Detect) Influenza Type B (PCR) Not Detected (Not Detect) Mycoplasma pneumon IgG 0.30 H (<=0.09) U/L Mycoplasma pneumon IgM 0.06 (<=0.76) U/L M.pneumoniae DNA (PCR) Not Detected (Not Detect) Parainfluenza 1 (PCR) Not Detected (Not Detect) Parainfluenza 2 (PCR) Not Detected (Not Detect) Parainfluenza 3 (PCR) Not Detected (Not Detect) Parainfluenza 4 (PCR) Not Detected (Not Detect) RSV (PCR) Not Detected (Not Detect) Entero/Rhino (PCR) Not Detected (Not Detect) 03/27/18 03/26/18 03/26/18 Range/Units 04:15 20:10 20:10 Urine Color Yellow (Yellow) Urine Clarity Clear (Clear) Urine pH 5.5 (5.0-8.0) pH Units Ur Specific [place] 1.023 (1.010-1.025) Urine Protein Negative (Neg-Trace) mg/dL Urine Glucose (UA) Normal (Normal) mg/dL Urine Ketones Negative (Negative) mg/dL Urine Blood Trace H (Negative) Urine Nitrite Negative (Negative) Urine Bilirubin Negative (Negative) Urine Urobilinogen Normal (Normal) mg/dL Ur Leukocyte Esterase Small H (Negative) Urine Microscopic RBC 3-5 H (0-3) per hpf Urine Microscopic WBC 5-15 H (0-3) per hpf Ur Squamous Epith Cells Many H (None-Few) per lpf Urine Bacteria None Seen (None-Few) per hpf Hyaline Casts Few (None-Few) per lpf Urine Yeast Test Not Performed Ur Culture Indicated? NO. A (NO) Nasal Screen MRSA (PCR) (Negative) Stl C. cayetanensis PCR Not detected (Not detect) Stool Rotavirus A PCR Not detected (Not detect) Stl Adenov F 40/41 PCR Not detected (Not detect) Stool Astrovirus (PCR) Not detected (Not detect) Stool Campylobacter PCR Not detected (Not detect) Stl C. diff Tox B Gene Positive A (Negative) Stl C. diff Tox A/B PCR See reflex test A (Not detect) Stool Cryptosporidium PCR Not detected (Not detect) Stl Sh Tox Pr E STEC PCR Not detected (Not detect) Stool E coli O157 PCR Not detected (Not detect) Stl Enterotoxigenic E PCR Not detected (Not detect) Stool EPEC (PCR) Not detected (Not detect) Stool EAEC (PCR) Not detected (Not detect) Stl E. histolytica PCR Not detected (Not detect) Stool Giardia Lamblia PCR Not detected (Not detect) Stool Salmonella PCR Not detected (Not detect) Stool Sapovirus (PCR) Not detected (Not detect) Stl P. shigelloides PCR Not detected (Not detect) Stl Shigella/EIEC PCR Not detected (Not detect) St Y.enterocolitica PCR Not detected (Not detect) Stool Vibrio (PCR) Not detected (Not detect) Stl Vibrio cholerae PCR Not detected (Not detect) Stl Norovirus GI/GII PCR Not detected (Not detect) Stl GI Panel (PCR) Com See below Chlamy pneumoniae PCR (Not Detect) Adenovirus (PCR) (Not Detect) B. pertussis DNA (PCR) (Not Detect) B.parapertussis DNA PCR (Not Detect) Coronavirus OC43 (PCR) (Not Detect) Coronavirus HKU1 (PCR) (Not Detect) Coronavirus 229E (PCR) (Not Detect) Coronavirus NL63 (PCR) (Not Detect) Hepatitis A Ab Total (Negative) Human Metapneumovir PCR (Not Detect) Influenza A (H1) PCR (Not Detect) Influ A (H1N1/09) PCR (Not Detect) Influenza A (H3) PCR (Not Detect) Influenza A Untype (PCR) (Not Detect) Influenza Type B (PCR) (Not Detect) Mycoplasma pneumon IgG (<=0.09) U/L Mycoplasma pneumon IgM (<=0.76) U/L M.pneumoniae DNA (PCR) (Not Detect) Parainfluenza 1 (PCR) (Not Detect) Parainfluenza 2 (PCR) (Not Detect) Parainfluenza 3 (PCR) (Not Detect) Parainfluenza 4 (PCR) (Not Detect) RSV (PCR) (Not Detect) Entero/Rhino (PCR) (Not Detect) Exam - Constitutional Vitals: Temp Pulse Resp BP Pulse Ox 99.7 F H 105 31 90/54 98 04/16/18 11:48 04/16/18 11:48 04/16/18 11:56 04/16/18 11:56 04/16/18 13:40 General appearance: average body habitus, cooperative, no acute distress - Head Head exam: Present: atraumatic, normal inspection, normocephalic - Eye Eye exam: Present: EOMI, normal appearance, PERRL Pupils: Present: normal accommodation - ENT ENT exam: Present: mucous membranes moist - Neck Neck exam: Present: normal inspection - Respiratory Respiratory exam: Present: CTAB. Absent: rales, respiratory distress, rhonchi, wheezes - Cardiovascular Cardiovascular exam: Present: RRR, +S1, +S2 - GI/Abdominal GI/Abdominal exam: Present: normal bowel sounds, soft, tenderness (generalized) . Absent: distended Additional comments: Chandra catheter noted to be draining clear yellow urine. - Extremities Exam Extremities exam: Present: normal inspection. Absent: joint swelling, pedal edema, tenderness - Neurological Exam Neurological exam: Present: alert, oriented X3. Absent: no focal deficits ( Paralysis noted to the RLE with decreased motion and sensation noted to the RUE. ) - Psychiatric Psychiatric exam: Present: normal affect, normal mood - Skin Skin exam: Present: dry, intact, normal color, warm Consult Discharge Plan - Plan Referrals: Kathy Acosta DO [Resident] - - Attending Attestation I examined this patient and my medical decision-making was reviewed with the Resident Physician. I agree with the documented findings, disposition and treatment plan as described except to the extent set forth below.
[2018-04-16] MEDS: traZODone 50 MG TABLET PO SCH (21:23)
[2018-04-17] MEDS: Ipratropium/Albuterol Neb 3 ML IH SCH ×6 (04:08→20:46)
[2018-04-17 04:09] LABS: Basophils % 0.1 %
[2018-04-17 04:10] LABS: Hemoglobin 6.9 g/dL (11.5-15.4); Lymphocytes # 0.5 K/mcL (0.6-4.6); Lymphocytes % 1.7 %; Mean Corpuscular HGB Conc 28.8 g/dL (31.6-35.5); Mean Corpuscular Hemoglobin 23.7 pg (28.0-33.3); Mean Corpuscular Volume 82.5 fL (83.0-100.0); Mean Platelet Volume 12.1 fL (9.4-12.4); Monocytes % 4.1 %; Neutrophils # 27.9 K/mcL (1.6-8.9); Nucleated Red Blood Cells 5.6 /100 WBC (0); Platelet Count 280 K/mcL (140-400); Red Blood Count 2.91 M/mcL (3.82-4.97); Red Cell Distribution Width 24.9 % (11.5-14.5); Segmented Neutrophils % 92.1 %
[2018-04-17 04:17] LABS: INR 1.3; Prothrombin Time 14.8 Seconds (9.4-12.1)
[2018-04-17 04:22] LABS: Monocytes # 1.2 K/mcL (0.0-1.3)
[2018-04-17 04:49] LABS: Anisocytosis 2+ (Not Present); Hypochromasia Present (Not Present); Polychromasia 2+ (Not Present); Toxic Granulation Present (Not Present)
[2018-04-17 05:09] LABS: Calcium 8.9 mg/dL (8.6-10.3); Potassium 3.4 mEq/L (3.5-5.1)
[2018-04-17 05:10] LABS: Albumin 2.4 g/dL (3.5-5.7); Albumin/Globulin Ratio 0.8 (1.1-2.2); Bilirubin,Direct 0.3 mg/dL (0.0-0.2); Bilirubin,Indirect 0.3 mg/dL (0.0-1.2); Bilirubin,Total 0.6 mg/dL (0.3-1.0); Globulin 2.9 g/dL (2.4-3.5); Total Protein 5.3 g/dL (6.4-8.9)
[2018-04-17 05:47] LABS: Hepatitis A Antibody IgM Nonreactive (Nonreactive); Hepatitis B Core IgM Nonreactive (Nonreactive); Hepatitis B Surface Antigen Nonreactive (Nonreactive); Hepatitis C Virus Antibody Nonreactive (Nonreactive)
[2018-04-17] MEDS: Pantoprazole 40 MG VIAL IVP SCH ×2 (05:51→18:16)
[2018-04-17] MEDS: Sucralfate 1 GM TABLET PO SCH ×3 (09:10→15:13)
[2018-04-17] MEDS: Lactobacillus 1 EACH CAP.SPRINK PO SCH ×2 (09:10→19:53)
[2018-04-17] MEDS: Magnesium Oxide 400 MG TABLET PO SCH (09:10)
[2018-04-17] MEDS: Gabapentin 100 MG CAPSULE PO SCH ×3 (09:10→19:52)
[2018-04-17] MEDS: predniSONE 20 MG TABLET PO SCH (09:10)
[2018-04-17] MEDS: Piperacillin/Tazobactam 3.375 GM in 0.9 % Sodium Chloride Mini Bag 100 ML IVPB SCH ×2 (09:11→15:13)
[2018-04-17] MEDS: Aspirin 81 MG TAB.CHEW PO SCH (09:11)
[2018-04-17] MEDS: Vancomycin Oral Soln 125 MG/2.5 ML UDC PO SCH ×4 (09:12→19:51)
[2018-04-17] MEDS: Insulin LISPRO 300 UNITS/3 ML VIAL SQ SCH ×4 (09:12→22:54)
--- NOTE | 2018-04-17 10:36 | Nephrology Progress Note ---
Date of Encounter: 04/17/18 Time of Encounter: 09:50 - Assessment and Plan (1) Acute kidney injury Current Visit: Yes Status: Acute - NIGEL and oliguria which is most likely pre-renal/volume depletion from C diff diarrhea. I recommend IVF and volume expansion in the meantime, since she has been so volume depleted and appeared to become even more dehydrated while on Lindsay. However if this becomes ATN and her UOP does not improve enough, then she may need periodic HD. So I recommend keeping the temporary HD catheter in place in the RIJ for now. Discussed in detail with the floor RN. -Hypokalemia: recommend replacing. Likely from her diarrhea and IVF that I had started yesterday. - C diff diarrhea: oral vanco is not systemically absorbed so okay from my perspective - Please be sure to dose Rx by a presumed worsening eGFR each day and avoid nephrotoxins as able such as Vanco IV, if able. - Will continue to follow with you. Thank you. (2) Hypophosphatemia Current Visit: Yes Status: Acute (3) Elevated transaminase level Current Visit: Yes Status: Acute (4) Anemia Current Visit: Yes Status: Acute Qualifiers: Anemia type: unspecified type Qualified Code(s): D64.9 - Anemia, unspecified (5) Acute and chronic respiratory failure with hypoxia Current Visit: Yes Status: Deleted (6) C. difficile colitis Current Visit: Yes Status: Acute As per primary (7) History of CVA (cerebrovascular accident) Current Visit: No Status: Chronic Subjective Principal diagnosis: Sepsis Interval history: Pt was seen/examined earlier in the day. She did not affirm N/V/D or other major complaints. Her Floor RN was present in the room during my interview and exam and we discussed IVF continuation. Objective - Vital Signs Vital signs: Vital Signs Temp Pulse Resp BP Pulse Ox 04/17/18 07:46 98.0 F 92 28 176/73 98 04/17/18 07:44 26 99 04/17/18 04:10 14 114/66 97 04/17/18 03:41 98.1 F 101 12 114/66 97 04/16/18 23:54 20 92 04/16/18 23:36 99.1 F 102 18 105/65 96 04/16/18 20:20 18 95 04/16/18 19:14 97.8 F 90 18 100/62 94 04/16/18 17:40 98.2 F 90 18 96 04/16/18 13:40 98 04/16/18 11:56 31 90/54 96 04/16/18 11:48 99.7 F H 105 20 90/54 94 Intake and Output 04/16/18 04/17/18 04/17/18 23:59 07:59 15:59 Intake Total 1100 / 1100 100 / 100 240 / 240 Output Total 200 / 200 Balance 1100 / 1100 -100 / -100 240 / 240 Intake: IV Fluids 1100 / 1100 100 / 100 0.45% Sodium Chloride 1000 Ml 1000 / 1000 1000 Ml 1,000 ML @ 75 mls/hr IVC .[id number] [facility] Rx#:[id number] Zosyn 3.375 GM In 0.9 % Sodium 100 / 100 100 / 100 Chloride (Mini-Bag +) 100 ML @ 25 mls/hr IVPB Q8HR [facility] Rx#: [id number] Oral 240 / 240 Output: Catheter 200 / 200 Other: Meal Breakfast Percent of Meal Consumed 20% Stool Size Moderate Stool Consistency liquid Stool Color Brown # Bowel Movements 1 # Bowel Movement Diapers 1 Weight 61.8 kg Blood Glucose* 243 114 Patient Weight 04/17/18 23:59 Weight 61.8 kg - General Appearance Exam: General appearance: Present: appears started age, cachectic, fatigue, frail EENT: Present: ATNC, mucous membranes moist Neck: Present: supple Respiratory: Present: clear Cardiology: Present: no edema, normal S1, normal S2 Dialysis Vascular Access: Venous Catheter (Right IJ temporary HD catheter in place) Gastrointestinal: Present: normoactive bowel sounds, no tenderness, no guarding Integumentary: Present: no rash, warm and dry Neurologic: Present: no asterixis, alert and oriented x3 Additional Comments: Right UE and RLE hemiparesis with some mild right sided facial droop (appears chronic). Musculoskeletal: Present: no erythema, no cyanosis Psychiatric: Present: mood/affect appropriate, cooperative - Lab 04/17/18 17:27 04/17/18 03:50 Most recent lab results ABG pH 7.36 pH Units (7.32-7.45) 04/12/18 21:32 ABG pCO2 51 mmHg (35-45) H 04/12/18 21:32 ABG pO2 84 mmHg (85-104) L 04/12/18 21:32 ABG HCO3 29 mEq/L (21-27) H 04/12/18 21:32 ABG O2 Saturation 96 % (95-98) 04/12/18 21:32 Calcium 8.9 mg/dL (8.6-10.3) 04/17/18 03:50 Phosphorus 4.0 mg/dL (2.7-4.5) 04/16/18 03:43 Magnesium 2.0 mg/dL (1.6-2.6) 04/17/18 03:50 Consult Discharge Plan - Plan Referrals: Kathy Acosta DO [Resident] -
--- NOTE | 2018-04-17 11:18 | Internal Med Progress Note ---
<Lucero Salas - Last Filed: 04/17/18 17:07> Hospitalist Progress Note - Encounter Date of Encounter: 04/17/18 Time of Encounter: 09:00 - Subjective Interval History: Ms. Lauren was examined at bedside this morning. She was laying in bed on nasal canula. She had no events overnight. She remained afebrile. Blood pressure was stable between 100/62 to 179/71. Today her hemoglobin was noted to be 6.9. She was asymptomatic. She had one episode of vomit this morning but it was not observed and the color is not noted. She continues to have loose bowel movements, had three yesterday. She denied any abdominal pain, nausea, emesis, fever, chills, chest pain or shortness of breath. - Exam Vitals: Temp Pulse Resp BP Pulse Ox 98.0 F 92 28 176/73 98 04/17/18 07:46 04/17/18 07:46 04/17/18 07:46 04/17/18 07:46 04/17/18 07:46 Exam: Constitutional: Alert, in no acute distress, on nasal canula HEENT: Normocephalic, atraumatic, moist mucus membranes Heart: Normal, regular rate and rhythm, no murmurs Lungs: lungs clear and equal bilaterally Abdomen: Soft, hypoactive bowel sounds, non tender Extremities: No edema of lower extremity or upper extremities, warm, nontender Skin: Skin warm and dry, no lesions, no rashes, no jaundice Psych: thought content congruent, appropriate affect Neurological Alert and oriented x 3, 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 She progressed to septic shock on 04/12 and required vasopressors for one day. Her blood cultures remained negative. Likely source secondary to pneumonia and hepatitis A. Blood cultures negative from 03/25 and negative 04/11. Plan: Continue pneumonia management, ID recommends continuing zosyn--day 18 total doses, received 12 days and stopped for 2 days, restarted 6 days ago Continue IV vancomycin, per IDs recommendation Continue monitoring vitals CBC in the morning Awaiting repeat chest xray (2) C. difficile colitis Current Visit: Yes Status: Acute Assessment and Plan: Diarrhea ongoing, hepatitis A IgM is negative so acute phase of hepatitis A is resolved. Continues to have poor oral intake. Treatment regimen according to infectious disease. She did not show any evidence of pseudomembranous colitis and toxic megacolon during sigmoidoscopy on 04/12. Plan: -ID recommends continuing oral vancomycin, day 20 -Continue to monitor stool for changes in consistency -Continue probiotics -Continue to monitor vitals and CBC (3) Shock liver Current Visit: Yes Status: Resolved Assessment and Plan: Resolved. Noted to have shock liver on 04/12. Her AST was 2981 on 04/12 and ALT were noted to be above 500. Statin was discontinued. She received n-acetylcysteine. Right upper ultrasound shwoed no evidence of hepatic venous thrombisis. Hepatitis A positive. Hepatitis B and C pending. Today her AST is 64 and ALT is 205. Alk phos 200, improved from yesterday. Has no abdominal pain. Improving liver function and her hepatitis A IgM, Hepatitis B and C are nonreactive. Plan: Continue to monitor CMP tomorrow (4) Pneumonia Current Visit: Yes Status: Acute Assessment and Plan: CT chest on 04/03 showed multifocal PNA, greatest in the LLL. Patient had worsening left-sided infiltrates on 04/13. IV added vancomycin was added along with zosyn. She had V/Q mismatch in the ICU she remained stable. Plan: -Infectious disease and pulmonology consulted -Swallow eval negative for aspiration and started diet today -Continue zosyn (day 6 since restarted, received 12 days previously) IV vancomycin per ID recommendations -Continue to Bipap at night -CBC in the morning -Chest xray pending (5) COPD (chronic obstructive pulmonary disease) Current Visit: Yes Status: Acute Assessment and Plan: History of COPD, received prednisone during her admission. She is not in acute exacerbation, no cough or sputum production. Plan: -Continue with duoneb Q4h prn -Continue to wean O2 supplementation (6) Diabetes type 2, controlled Current Visit: Yes Status: Acute Assessment and Plan: Her glucose today was 199 this morning and restarted her diet today, likely elevated due to nectar thickened diet. Plan: Continue sliding scale Continue to monitor Continue long acting insulin given how how glucose is after starting diet (7) Chronic anemia Current Visit: Yes Status: Acute Assessment and Plan: Likely acute cause. Her hemoglobin today is 6.9 and noted to have an increased in BUN although she does have recent renal impairment. No source of emesis. Plan: -Continue to monitor CBC -Pending HH -GI consulted, ask them for recommendations for upper scope (8) Pulmonary nodule Current Visit: Yes Status: Acute Assessment and Plan: CT of the chest noted a small lobulated nodule on the right upper lung lobe posteriorly Plan: Need to be followed to resolution after pneumonia resolves outpatient (9) DVT prophylaxis Current Visit: Yes Status: Acute Assessment and Plan: SCDs (10) NIGEL (acute kidney injury) Current Visit: Yes Status: Acute Assessment and Plan: Today creatinine is 1.60 and yesterday was 1.10. Had an NIGEL on 04/12, likely due to septic shock. She was anuric, having minimal urinary output--200 so far today. Nephrology was consulted in the ICU and she received hemodialysis and they continue to follow. Plan: Per nephrology recommendation for hemodialysis Continue strict I/Os Continue to dose medications renally - Time Spent with Patient Total time spent is greater than 50% in coordination of care (as documented) at patient's floor/unit and/or counseling patient: less than 15 minutes Plan of Care Discussed with: patient Internal Medicine: Result - Labs CBC & Chem 7: 04/17/18 03:50 04/17/18 03:50 Labs: Short CBC 04/17/18 Range/Units 03:50 WBC 30.3 H* (4.3-11.1) K/mcL Hgb 6.9 L (11.5-15.4) g/dL Hct 24.0 L (35.3-44.9) % Plt Count 280 (140-400) K/mcL Neutrophils # 27.9 H (1.6-8.9) K/mcL BMP 04/17/18 03:50 Sodium 143 Potassium 3.4 L Chloride 106 Carbon Dioxide 28 BUN 29 H Creatinine 1.60 H Glucose 135 H Calcium 8.9 Liver Function 04/17/18 Range/Units 03:50 Total Bilirubin 0.6 (0.3-1.0) mg/dL Direct Bilirubin 0.3 H (0.0-0.2) mg/dL AST 64 H (13-39) Units/L ALT 205 H (7-52) Units/L Alkaline Phosphatase 200 H (34-104) Units/L Albumin 2.4 L (3.5-5.7) g/dL - ABG Interpretation ABG results: ABG ABG pH 7.36 pH Units (7.32-7.45) 04/12/18 21:32 ABG pCO2 51 mmHg (35-45) H 04/12/18 21:32 ABG pO2 84 mmHg (85-104) L 04/12/18 21:32 ABG O2 Saturation 96 % (95-98) 04/12/18 21:32 PT/INR, D-dimer PT 14.8 Seconds (9.4-12.1) H 04/17/18 03:50 Consult Discharge Plan - Plan Referrals: Kathy Acosta DO [Resident] - <Bruce Delgado - Last Filed: 04/17/18 19:17> Hospitalist Progress Note - Encounter Date of Encounter: 04/17/18 - Exam Vitals: Temp Pulse Resp BP Pulse Ox 98.5 F 100 20 179/71 99 04/17/18 16:22 04/17/18 16:22 04/17/18 16:22 04/17/18 16:22 04/17/18 16:22 - Assessment and Plan (1) COPD (chronic obstructive pulmonary disease) Current Visit: Yes Status: Acute (2) Pneumonia Current Visit: Yes Status: Acute (3) C. difficile colitis Current Visit: Yes Status: Acute (4) Chronic anemia Current Visit: Yes Status: Acute (5) Diabetes type 2, controlled Current Visit: Yes Status: Acute (6) Pulmonary nodule Current Visit: Yes Status: Acute (7) Sepsis Current Visit: Yes Status: Resolved (8) DVT prophylaxis Current Visit: Yes Status: Acute (9) Shock liver Current Visit: Yes Status: Resolved (10) NIGEL (acute kidney injury) Current Visit: Yes Status: Acute (11) Hepatitis A Current Visit: Yes Status: Acute - Time Spent with Patient Total time spent is greater than 50% in coordination of care (as documented) at patient's floor/unit and/or counseling patient: Internal Medicine: Result - Labs CBC & Chem 7: 04/17/18 17:27 04/17/18 03:50 Labs: Short CBC 04/17/18 04/17/18 Range/Units 03:50 17:27 WBC 30.3 H* (4.3-11.1) K/mcL Hgb 6.9 L 7.7 L (11.5-15.4) g/dL Hct 24.0 L 26.9 L (35.3-44.9) % Plt Count 280 (140-400) K/mcL Neutrophils # 27.9 H (1.6-8.9) K/mcL BMP 04/17/18 03:50 Sodium 143 Potassium 3.4 L Chloride 106 Carbon Dioxide 28 BUN 29 H Creatinine 1.60 H Glucose 135 H Calcium 8.9 Liver Function 04/17/18 Range/Units 03:50 Total Bilirubin 0.6 (0.3-1.0) mg/dL Direct Bilirubin 0.3 H (0.0-0.2) mg/dL AST 64 H (13-39) Units/L ALT 205 H (7-52) Units/L Alkaline Phosphatase 200 H (34-104) Units/L Albumin 2.4 L (3.5-5.7) g/dL - ABG Interpretation ABG results: ABG ABG pH 7.36 pH Units (7.32-7.45) 04/12/18 21:32 ABG pCO2 51 mmHg (35-45) H 04/12/18 21:32 ABG pO2 84 mmHg (85-104) L 04/12/18 21:32 ABG O2 Saturation 96 % (95-98) 04/12/18 21:32 PT/INR, D-dimer PT 14.8 Seconds (9.4-12.1) H 04/17/18 03:50 - Impressions Impressions Chest X-Ray 04/17/18 06:00 IMPRESSION: Findings of congestive heart failure including bibasilar consolidation and bilateral pleural effusion. Underlying pneumonia is a consideration. Findings have progressed since prior study. Calcific atherosclerotic disease aorta. D/ / Leo Gonzalez / Leo Gonzalez Interpreting Provider: Leo Gonzalez - Attending Attestation I examined this patient and my medical decision-making was reviewed with the Resident Physician on 04/17/18. I agree with the documented findings, disposition and treatment plan as described except to the extent set forth below. Ms Lauren is currently admitted for acute hepatitis A with fulminant hepatitis and C diff. She remains moderate to high risk due to potential for worsening clinical status. Ms Lauren is resting at this time. No fever or chills. WBC still elevated. Cultures negative. Appreciate security system sales consultant input. Hemoglobin lower today - no overt bleeding. Exam Alert Comfortable Mucus membranes dry Heart distant and regular Lungs clear at this time Abd soft I/P 1. Acute hep A 2. C diff colitis Further diagnoses and plan as above. <Lucero Salas - Last Filed: 04/17/18 17:07> (1) Sepsis Qualifiers: Sepsis type: sepsis due to unspecified organism Qualified Code(s): A41.9 - Sepsis, unspecified organism (4) Pneumonia Qualifiers: Pneumonia type: due to unspecified organism Laterality: bilateral Lung location: lower lobe of lung Qualified Code(s): J18.1 - Lobar pneumonia, unspecified organism (5) COPD (chronic obstructive pulmonary disease) Qualifiers: COPD type: chronic bronchitis Chronic bronchitis type: mucopurulent Qualified Code(s): J41.1 - Mucopurulent chronic bronchitis (6) Diabetes type 2, controlled Qualifiers: Diabetes mellitus termite technician insulin use: with termite technician use Diabetes mellitus complication status: with hyperglycemia Qualified Code(s): E11.65 - Type 2 diabetes mellitus with hyperglycemia; Z79.4 - alf (current) use of insulin <Bruce Delgado - Last Filed: 04/17/18 19:17> (1) COPD (chronic obstructive pulmonary disease) Qualifiers: COPD type: chronic bronchitis Chronic bronchitis type: mucopurulent Qualified Code(s): J41.1 - Mucopurulent chronic bronchitis (2) Pneumonia Qualifiers: Pneumonia type: due to unspecified organism Laterality: bilateral Lung location: lower lobe of lung Qualified Code(s): J18.1 - Lobar pneumonia, unspecified organism (5) Diabetes type 2, controlled Qualifiers: Diabetes mellitus termite technician insulin use: with nursing home use Diabetes mellitus complication status: with hyperglycemia Qualified Code(s): E11.65 - Type 2 diabetes mellitus with hyperglycemia; Z79.4 - terminal system 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 (7) Sepsis Qualifiers: Sepsis type: sepsis due to unspecified organism Qualified Code(s): A41.9 - Sepsis, unspecified organism (11) Hepatitis A Qualifiers: Hepatic coma status: without hepatic coma Qualified Code(s): B15.9 - Hepatitis A without hepatic coma
[2018-04-17] MEDS ORDERED: Albuterol 2.5 MG/3 ML NEBULIZER IH PRN (15:04)
--- NOTE | 2018-04-17 17:02 | Infectious Disease Progress No ---
Date of Encounter: 04/17/18 Time of Encounter: 10:30 - Assessment and Plan (1) Sepsis Current Visit: No Status: Acute Progressed to septic shock requiring vasopressors with end organ damage. Likely secondary to pneumonia and Hepatitis A. WBC trending down. Vasopressors off. Hypothermia has resolved. Blood cultures obtained 03/25/18 are negative 2 sets. Repeat blood cultures drawn 04/11/18 are negative x 2 sets. Qualifiers: Qualified Code(s): A41.9 - Sepsis, unspecified organism (2) Pneumonia Current Visit: Yes Status: Acute Location: Multifocal, greatest in the left lower lobe. Causative organism: Unclear. No evidence of aspiration noted on exam. Respiratory infectious panel was negative. Strep pneumococcal and legionella urinary antigens were negative. The patient has been able to provide us with 2 sputum cultures that are both negative. CT chest 04/08/18 showed improvement, but CT abdomen and pelvis 04/11/18 showed persistent LLL pneumonia. Completed 12 days of Zosyn and 6 days of Vanc. Repeat CXR now. Ordered 04/16, but still not done. Spoke with radiology who states they will have transport bring her down now. Continue Zosyn 3.375 grams IV Q8H. (day 6) Continue Vancomycin IV. Pharmacy to dose. Goal trough ~15. (day 6) Duration of treatment depends on the clinical picture. Monitor renal function and for drug toxicity and dose-adjust antibiotics. Qualifiers: Qualified Code(s): J18.1 - Lobar pneumonia, unspecified organism (3) C. difficile colitis Current Visit: Yes Status: Acute Severe. Clinically, the patient's stools are more formed, but she is still stooling several times per day. Repeat CT of the abdomen and pelvis showed findings consistent with ileus and gastroenteritis on 04/08/[address] of the abdomen and pelvis 04/11/18 did not show any bowel thickening or toxic megacolon, but radiologist reports concern for ischemic bowel due to severe calcification of the mesenteric circulation. Status post colonoscopy 04/12/18 that was negative for pseudomembranous or toxic megacolon. IV Flagyl stopped by the primary team. Continue Vancomycin 125mg PO QID. (day 21). Duration of treatment depends on the clinical picture. (4) Abdominal pain Current Visit: Yes Status: Resolved Secondary to C diff colitis and gastroenteritis and Hepatitis A. GI consulted. Appreciate recommendations. LFTs this morning markedly elevated and lactic acid 9. CT abdomen and pelvis on 04/03/2018: Cholelithiasis, small amount of gas within the bladder. Decreased small bowel distention with small bowel wall thickening in the left upper quadrant; no toxic megacolon. Repeat CT of the abdomen and pelvis 04/11/18 showed findings concerning for ischemic bowel. Status post colonoscopy 04/12/15 that was negative for pseudomembranous colitis or toxic megacolon. Resolved. Qualifiers: Qualified Code(s): R10.84 - Generalized abdominal pain (5) Rectal bleeding Current Visit: Yes Status: Resolved Patient started having bloody stools overnight. Etiology unclear. Not sure that it is from the C. diff since her stools are formed. Status post colonoscopy 04/12/18 that was negative for bleeding. Appears improved. Management and transfusion parameters per the primary team. (6) Elevated transaminase level Current Visit: Yes Status: Acute Likely secondary to Hepatitis A vs. shock liver. Trending down. Continue supportive care. (7) Lactic acidosis Current Visit: Yes Status: Resolved Likely secondary to sepsis. Improved. (8) Acute kidney injury Current Visit: Yes Status: Acute Etiology unclear. Improved. Continue to trend. CRRT started 04/12/18, discontinued 04/15/18. (9) Hepatitis A Current Visit: Yes Status: Acute Hepatitis A antibody positive. Likely contributing to the elevated LFTs. Continue to trend LFTs and continue supportive care. Qualifiers: Qualified Code(s): B15.9 - Hepatitis A without hepatic coma - Subjective Interval history: Patient seen and examined. No acute events noted overnight. Status post C-scope Sunday that was negative. Appears more alert today. Denies shortness of breath or cough. Denies chest or abdominal pain. Denies fevers, chills, or rigors. Denies nausea, vomiting, or diarrhea. Per nursing documentation, three loose stools overnight. Denies oral thrush. Currently on O2 via nasal cannula. Infect Dis PN-Objective Data - Labs CBC & Chem 7: 04/17/18 03:50 04/17/18 03:50 Labs: Laboratory Results - last 24 hr 04/16/18 04/16/18 04/16/18 11:45 17:27 20:40 WBC RBC Hgb Hct MCV MCH MCHC RDW Plt Count MPV Immature Gran % Seg Neutrophils % Lymphocytes % Monocytes % Eosinophils % Basophils % Neutrophils # Lymphocytes # Monocytes # Eosinophils # Basophils # Nucleated RBCs/100 WBC Toxic Granulation Polychromasia Hypochromasia Anisocytosis PT INR Sodium Potassium Chloride Carbon Dioxide BUN Creatinine Est GFR ( Amer) Est GFR (Non-Af Amer) BUN/Creatinine Ratio Glucose POC Glucose 197 H 198 H 243 H Calculated Osmolality Calcium Magnesium Total Bilirubin Direct Bilirubin Indirect Bilirubin AST ALT Alkaline Phosphatase Serum Total Protein Albumin Globulin Albumin/Globulin Ratio Vancomycin Trough Hepatitis A IgM Ab Hep Bs Antigen Hep B Core IgM Ab Hepatitis C Ab Screen 04/17/18 04/17/18 04/17/18 03:50 03:50 03:50 WBC 30.3 H* RBC 2.91 L Hgb 6.9 L Hct 24.0 L MCV 82.5 L MCH 23.7 L MCHC 28.8 L RDW 24.9 H Plt Count 280 MPV 12.1 Immature Gran % 2.0 Seg Neutrophils % 92.1 Lymphocytes % 1.7 Monocytes % 4.1 Eosinophils % 0.0 Basophils % 0.1 Neutrophils # 27.9 H Lymphocytes # 0.5 L Monocytes # 1.2 Eosinophils # 0.0 Basophils # 0.0 Nucleated RBCs/100 WBC 5.6 H Toxic Granulation Present A Polychromasia 2+ A Hypochromasia Present A Anisocytosis 2+ A PT 14.8 H INR 1.3 Sodium Potassium Chloride Carbon Dioxide BUN Creatinine Est GFR ( Amer) Est GFR (Non-Af Amer) BUN/Creatinine Ratio Glucose POC Glucose Calculated Osmolality Calcium Magnesium 2.0 Total Bilirubin Direct Bilirubin Indirect Bilirubin AST ALT Alkaline Phosphatase Serum Total Protein Albumin Globulin Albumin/Globulin Ratio Vancomycin Trough Hepatitis A IgM Ab Hep Bs Antigen Hep B Core IgM Ab Hepatitis C Ab Screen 04/17/18 04/17/18 04/17/18 03:50 03:50 03:50 WBC RBC Hgb Hct MCV MCH MCHC RDW Plt Count MPV Immature Gran % Seg Neutrophils % Lymphocytes % Monocytes % Eosinophils % Basophils % Neutrophils # Lymphocytes # Monocytes # Eosinophils # Basophils # Nucleated RBCs/100 WBC Toxic Granulation Polychromasia Hypochromasia Anisocytosis PT INR Sodium 143 Potassium 3.4 L Chloride 106 Carbon Dioxide 28 BUN 29 H Creatinine 1.60 H Est GFR ( Amer) 39 L Est GFR (Non-Af Amer) 32 L BUN/Creatinine Ratio 18 Glucose 135 H POC Glucose Calculated Osmolality 304 H Calcium 8.9 Magnesium Total Bilirubin 0.6 Direct Bilirubin 0.3 H Indirect Bilirubin 0.3 AST 64 H ALT 205 H Alkaline Phosphatase 200 H Serum Total Protein 5.3 L Albumin 2.4 L Globulin 2.9 Albumin/Globulin Ratio 0.8 L Vancomycin Trough Hepatitis A IgM Ab Nonreactive Hep Bs Antigen Nonreactive Hep B Core IgM Ab Nonreactive Hepatitis C Ab Screen Nonreactive 04/17/18 04/17/18 04/17/18 07:40 09:00 11:46 WBC RBC Hgb Hct MCV MCH MCHC RDW Plt Count MPV Immature Gran % Seg Neutrophils % Lymphocytes % Monocytes % Eosinophils % Basophils % Neutrophils # Lymphocytes # Monocytes # Eosinophils # Basophils # Nucleated RBCs/100 WBC Toxic Granulation Polychromasia Hypochromasia Anisocytosis PT INR Sodium Potassium Chloride Carbon Dioxide BUN Creatinine Est GFR ( Amer) Est GFR (Non-Af Amer) BUN/Creatinine Ratio Glucose POC Glucose 114 H 137 H Calculated Osmolality Calcium Magnesium Total Bilirubin Direct Bilirubin Indirect Bilirubin AST ALT Alkaline Phosphatase Serum Total Protein Albumin Globulin Albumin/Globulin Ratio Vancomycin Trough 29 H Hepatitis A IgM Ab Hep Bs Antigen Hep B Core IgM Ab Hepatitis C Ab Screen 04/17/18 16:18 WBC RBC Hgb Hct MCV MCH MCHC RDW Plt Count MPV Immature Gran % Seg Neutrophils % Lymphocytes % Monocytes % Eosinophils % Basophils % Neutrophils # Lymphocytes # Monocytes # Eosinophils # Basophils # Nucleated RBCs/100 WBC Toxic Granulation Polychromasia Hypochromasia Anisocytosis PT INR Sodium Potassium Chloride Carbon Dioxide BUN Creatinine Est GFR ( Amer) Est GFR (Non-Af Amer) BUN/Creatinine Ratio Glucose POC Glucose 207 H Calculated Osmolality Calcium Magnesium Total Bilirubin Direct Bilirubin Indirect Bilirubin AST ALT Alkaline Phosphatase Serum Total Protein Albumin Globulin Albumin/Globulin Ratio Vancomycin Trough Hepatitis A IgM Ab Hep Bs Antigen Hep B Core IgM Ab Hepatitis C Ab Screen Cultures: Cultures 04/11/18 11:55 Blood Culture - Final Peripheral Venipuncture No growth. Final report. 04/11/18 11:53 Blood Culture - Final Peripheral Venipuncture No growth. Final report. 04/05/18 13:38 Sputum Culture - Final Sputum 04/05/18 16:38 Sputum Culture - Final Sputum 03/27/18 04:15 Legionella Antigen - Final Urine,[place] Streptococcus pneumoniae Antigen (M - Final Serology 10/10/18 10/05/18 10/04/18 Range/Units 03:50 17:14 20:37 Urine Color Dark Yellow (Yellow) Urine Clarity Hazy A (Clear) Urine pH 5.0 (5.0-8.0) pH Units Ur Specific [place] 1.018 (1.010-1.025) Urine Protein Trace (Neg-Trace) mg/dL Urine Glucose (UA) Normal (Normal) mg/dL Urine Ketones Negative (Negative) mg/dL Urine Blood Negative (Negative) Urine Nitrite Negative (Negative) Urine Bilirubin Negative (Negative) Urine Urobilinogen Normal (Normal) mg/dL Ur Leukocyte Esterase Small H (Negative) Urine Microscopic RBC (0-3) per hpf Urine Microscopic WBC 15-30 H (0-3) per hpf Ur Squamous Epith Cells Many H (None-Few) per lpf Urine Bacteria Many H (None-Few) per hpf Hyaline Casts Few (None-Few) per lpf Urine Yeast Many H Ur Culture Indicated? NO. A (NO) Nasal Screen MRSA (PCR) (Negative) Stl C. cayetanensis PCR (Not detect) Stool Rotavirus A PCR (Not detect) Stl Adenov F 40/41 PCR (Not detect) Stool Astrovirus (PCR) (Not detect) Stool Campylobacter PCR (Not detect) Stl C. diff Tox B Gene (Negative) Stl C. diff Tox A/B PCR (Not detect) Stool Cryptosporidium PCR (Not detect) Stl Sh Tox Pr E STEC PCR (Not detect) Stool E coli O157 PCR (Not detect) Stl Enterotoxigenic E PCR (Not detect) Stool EPEC (PCR) (Not detect) Stool EAEC (PCR) (Not detect) Stl E. histolytica PCR (Not detect) Stool Giardia Lamblia PCR (Not detect) Stool Salmonella PCR (Not detect) Stool Sapovirus (PCR) (Not detect) Stl P. shigelloides PCR (Not detect) Stl Shigella/EIEC PCR (Not detect) St Y.enterocolitica PCR (Not detect) Stool Vibrio (PCR) (Not detect) Stl Vibrio cholerae PCR (Not detect) Stl Norovirus GI/GII PCR (Not detect) Stl GI Panel (PCR) Com Chlamy pneumoniae PCR (Not Detect) Adenovirus (PCR) (Not Detect) B. pertussis DNA (PCR) (Not Detect) B.parapertussis DNA PCR (Not Detect) Coronavirus OC43 (PCR) (Not Detect) Coronavirus HKU1 (PCR) (Not Detect) Coronavirus 229E (PCR) (Not Detect) Coronavirus NL63 (PCR) (Not Detect) Hepatitis A IgM Ab Nonreactive (Nonreactive) Hepatitis A Ab Total POSITIVE A (Negative) Hep Bs Antigen Nonreactive (Nonreactive) Hep B Core IgM Ab Nonreactive (Nonreactive) Hepatitis C Ab Screen Nonreactive (Nonreactive) Human Metapneumovir PCR (Not Detect) Influenza A (H1) PCR (Not Detect) Influ A (H1N1/09) PCR (Not Detect) Influenza A (H3) PCR (Not Detect) Influenza A Untype (PCR) (Not Detect) Influenza Type B (PCR) (Not Detect) Mycoplasma pneumon IgG (<=0.09) U/L Mycoplasma pneumon IgM (<=0.76) U/L M.pneumoniae DNA (PCR) (Not Detect) Parainfluenza 1 (PCR) (Not Detect) Parainfluenza 2 (PCR) (Not Detect) Parainfluenza 3 (PCR) (Not Detect) Parainfluenza 4 (PCR) (Not Detect) RSV (PCR) (Not Detect) Entero/Rhino (PCR) (Not Detect) 04/05/18 04/05/18 04/05/18 Range/Units 12:12 09:20 09:20 Urine Color (Yellow) Urine Clarity (Clear) Urine pH (5.0-8.0) pH Units Ur Specific [place] (1.010-1.025) Urine Protein (Neg-Trace) mg/dL Urine Glucose (UA) (Normal) mg/dL Urine Ketones (Negative) mg/dL Urine Blood (Negative) Urine Nitrite (Negative) Urine Bilirubin (Negative) Urine Urobilinogen (Normal) mg/dL Ur Leukocyte Esterase (Negative) Urine Microscopic RBC (0-3) per hpf Urine Microscopic WBC (0-3) per hpf Ur Squamous Epith Cells (None-Few) per lpf Urine Bacteria (None-Few) per hpf Hyaline Casts (None-Few) per lpf Urine Yeast Ur Culture Indicated? (NO) Nasal Screen MRSA (PCR) Negative (Negative) Stl C. cayetanensis PCR (Not detect) Stool Rotavirus A PCR (Not detect) Stl Adenov F 40/41 PCR (Not detect) Stool Astrovirus (PCR) (Not detect) Stool Campylobacter PCR (Not detect) Stl C. diff Tox B Gene (Negative) Stl C. diff Tox A/B PCR (Not detect) Stool Cryptosporidium PCR (Not detect) Stl Sh Tox Pr E STEC PCR (Not detect) Stool E coli O157 PCR (Not detect) Stl Enterotoxigenic E PCR (Not detect) Stool EPEC (PCR) (Not detect) Stool EAEC (PCR) (Not detect) Stl E. histolytica PCR (Not detect) Stool Giardia Lamblia PCR (Not detect) Stool Salmonella PCR (Not detect) Stool Sapovirus (PCR) (Not detect) Stl P. shigelloides PCR (Not detect) Stl Shigella/EIEC PCR (Not detect) St Y.enterocolitica PCR (Not detect) Stool Vibrio (PCR) (Not detect) Stl Vibrio cholerae PCR (Not detect) Stl Norovirus GI/GII PCR (Not detect) Stl GI Panel (PCR) Com Chlamy pneumoniae PCR Not Detected (Not Detect) Adenovirus (PCR) Not Detected (Not Detect) B. pertussis DNA (PCR) Not Detected (Not Detect) B.parapertussis DNA PCR Not Detected (Not Detect) Coronavirus OC43 (PCR) Not Detected (Not Detect) Coronavirus HKU1 (PCR) Not Detected (Not Detect) Coronavirus 229E (PCR) Not Detected (Not Detect) Coronavirus NL63 (PCR) Not Detected (Not Detect) Hepatitis A IgM Ab (Nonreactive) Hepatitis A Ab Total (Negative) Hep Bs Antigen (Nonreactive) Hep B Core IgM Ab (Nonreactive) Hepatitis C Ab Screen (Nonreactive) Human Metapneumovir PCR Not Detected (Not Detect) Influenza A (H1) PCR Not Detected (Not Detect) Influ A (H1N1/09) PCR Not Detected (Not Detect) Influenza A (H3) PCR Not Detected (Not Detect) Influenza A Untype (PCR) Not Detected (Not Detect) Influenza Type B (PCR) Not Detected (Not Detect) Mycoplasma pneumon IgG 0.48 H (<=0.09) U/L Mycoplasma pneumon IgM 0.13 (<=0.76) U/L M.pneumoniae DNA (PCR) Not Detected (Not Detect) Parainfluenza 1 (PCR) Not Detected (Not Detect) Parainfluenza 2 (PCR) Not Detected (Not Detect) Parainfluenza 3 (PCR) Not Detected (Not Detect) Parainfluenza 4 (PCR) Not Detected (Not Detect) RSV (PCR) Not Detected (Not Detect) Entero/Rhino (PCR) Not Detected (Not Detect) 03/29/18 03/27/18 03/26/18 Range/Units 08:40 04:15 20:10 Urine Color Yellow (Yellow) Urine Clarity Clear (Clear) Urine pH 5.5 (5.0-8.0) pH Units Ur Specific [place] 1.023 (1.010-1.025) Urine Protein Negative (Neg-Trace) mg/dL Urine Glucose (UA) Normal (Normal) mg/dL Urine Ketones Negative (Negative) mg/dL Urine Blood Trace H (Negative) Urine Nitrite Negative (Negative) Urine Bilirubin Negative (Negative) Urine Urobilinogen Normal (Normal) mg/dL Ur Leukocyte Esterase Small H (Negative) Urine Microscopic RBC 3-5 H (0-3) per hpf Urine Microscopic WBC 5-15 H (0-3) per hpf Ur Squamous Epith Cells Many H (None-Few) per lpf Urine Bacteria None Seen (None-Few) per hpf Hyaline Casts Few (None-Few) per lpf Urine Yeast Test Not Performed Ur Culture Indicated? NO. A (NO) Nasal Screen MRSA (PCR) (Negative) Stl C. cayetanensis PCR (Not detect) Stool Rotavirus A PCR (Not detect) Stl Adenov F 40/41 PCR (Not detect) Stool Astrovirus (PCR) (Not detect) Stool Campylobacter PCR (Not detect) Stl C. diff Tox B Gene Positive A (Negative) Stl C. diff Tox A/B PCR (Not detect) Stool Cryptosporidium PCR (Not detect) Stl Sh Tox Pr E STEC PCR (Not detect) Stool E coli O157 PCR (Not detect) Stl Enterotoxigenic E PCR (Not detect) Stool EPEC (PCR) (Not detect) Stool EAEC (PCR) (Not detect) Stl E. histolytica PCR (Not detect) Stool Giardia Lamblia PCR (Not detect) Stool Salmonella PCR (Not detect) Stool Sapovirus (PCR) (Not detect) Stl P. shigelloides PCR (Not detect) Stl Shigella/EIEC PCR (Not detect) St Y.enterocolitica PCR (Not detect) Stool Vibrio (PCR) (Not detect) Stl Vibrio cholerae PCR (Not detect) Stl Norovirus GI/GII PCR (Not detect) Stl GI Panel (PCR) Com Chlamy pneumoniae PCR (Not Detect) Adenovirus (PCR) (Not Detect) B. pertussis DNA (PCR) (Not Detect) B.parapertussis DNA PCR (Not Detect) Coronavirus OC43 (PCR) (Not Detect) Coronavirus HKU1 (PCR) (Not Detect) Coronavirus 229E (PCR) (Not Detect) Coronavirus NL63 (PCR) (Not Detect) Hepatitis A IgM Ab (Nonreactive) Hepatitis A Ab Total (Negative) Hep Bs Antigen (Nonreactive) Hep B Core IgM Ab (Nonreactive) Hepatitis C Ab Screen (Nonreactive) Human Metapneumovir PCR (Not Detect) Influenza A (H1) PCR (Not Detect) Influ A (H1N1/) PCR (Not Detect) Influenza A (H3) PCR (Not Detect) Influenza A Untype (PCR) (Not Detect) Influenza Type B (PCR) (Not Detect) Mycoplasma pneumon IgG 0.30 H (<=0.09) U/L Mycoplasma pneumon IgM 0.06 (<=0.76) U/L M.pneumoniae DNA (PCR) (Not Detect) Parainfluenza 1 (PCR) (Not Detect) Parainfluenza 2 (PCR) (Not Detect) Parainfluenza 3 (PCR) (Not Detect) Parainfluenza 4 (PCR) (Not Detect) RSV (PCR) (Not Detect) Entero/Rhino (PCR) (Not Detect) 03/26/18 Range/Units 20:10 Urine Color (Yellow) Urine Clarity (Clear) Urine pH (5.0-8.0) pH Units Ur Specific [place] (1.010-1.025) Urine Protein (Neg-Trace) mg/dL Urine Glucose (UA) (Normal) mg/dL Urine Ketones (Negative) mg/dL Urine Blood (Negative) Urine Nitrite (Negative) Urine Bilirubin (Negative) Urine Urobilinogen (Normal) mg/dL Ur Leukocyte Esterase (Negative) Urine Microscopic RBC (0-3) per hpf Urine Microscopic WBC (0-3) per hpf Ur Squamous Epith Cells (None-Few) per lpf Urine Bacteria (None-Few) per hpf Hyaline Casts (None-Few) per lpf Urine Yeast Ur Culture Indicated? (NO) Nasal Screen MRSA (PCR) (Negative) Stl C. cayetanensis PCR Not detected (Not detect) Stool Rotavirus A PCR Not detected (Not detect) Stl Adenov F 40/41 PCR Not detected (Not detect) Stool Astrovirus (PCR) Not detected (Not detect) Stool Campylobacter PCR Not detected (Not detect) Stl C. diff Tox B Gene (Negative) Stl C. diff Tox A/B PCR See reflex test A (Not detect) Stool Cryptosporidium PCR Not detected (Not detect) Stl Sh Tox Pr E STEC PCR Not detected (Not detect) Stool E coli O157 PCR Not detected (Not detect) Stl Enterotoxigenic E PCR Not detected (Not detect) Stool EPEC (PCR) Not detected (Not detect) Stool EAEC (PCR) Not detected (Not detect) Stl E. histolytica PCR Not detected (Not detect) Stool Giardia Lamblia PCR Not detected (Not detect) Stool Salmonella PCR Not detected (Not detect) Stool Sapovirus (PCR) Not detected (Not detect) Stl P. shigelloides PCR Not detected (Not detect) Stl Shigella/EIEC PCR Not detected (Not detect) St Y.enterocolitica PCR Not detected (Not detect) Stool Vibrio (PCR) Not detected (Not detect) Stl Vibrio cholerae PCR Not detected (Not detect) Stl Norovirus GI/GII PCR Not detected (Not detect) Stl GI Panel (PCR) Com See below Chlamy pneumoniae PCR (Not Detect) Adenovirus (PCR) (Not Detect) B. pertussis DNA (PCR) (Not Detect) B.parapertussis DNA PCR (Not Detect) Coronavirus OC43 (PCR) (Not Detect) Coronavirus HKU1 (PCR) (Not Detect) Coronavirus 229E (PCR) (Not Detect) Coronavirus NL63 (PCR) (Not Detect) Hepatitis A IgM Ab (Nonreactive) Hepatitis A Ab Total (Negative) Hep Bs Antigen (Nonreactive) Hep B Core IgM Ab (Nonreactive) Hepatitis C Ab Screen (Nonreactive) Human Metapneumovir PCR (Not Detect) Influenza A (H1) PCR (Not Detect) Influ A (H1N1/09) PCR (Not Detect) Influenza A (H3) PCR (Not Detect) Influenza A Untype (PCR) (Not Detect) Influenza Type B (PCR) (Not Detect) Mycoplasma pneumon IgG (<=0.09) U/L Mycoplasma pneumon IgM (<=0.76) U/L M.pneumoniae DNA (PCR) (Not Detect) Parainfluenza 1 (PCR) (Not Detect) Parainfluenza 2 (PCR) (Not Detect) Parainfluenza 3 (PCR) (Not Detect) Parainfluenza 4 (PCR) (Not Detect) RSV (PCR) (Not Detect) Entero/Rhino (PCR) (Not Detect) Exam - Constitutional Vitals: Temp Pulse Resp BP Pulse Ox 98.5 F 100 20 179/71 99 04/17/18 16:22 04/17/18 16:22 04/17/18 16:22 04/17/18 16:22 04/17/18 16:22 General appearance: average body habitus, cooperative, no acute distress - Head Head exam: Present: atraumatic, normal inspection, normocephalic - Eye Eye exam: Present: EOMI, normal appearance, PERRL Pupils: Present: normal accommodation - ENT ENT exam: Present: mucous membranes moist - Neck Neck exam: Present: normal inspection - Respiratory Respiratory exam: Present: CTAB. Absent: rales, respiratory distress, rhonchi, wheezes - Cardiovascular Cardiovascular exam: Present: RRR, +S1, +S2 - GI/Abdominal GI/Abdominal exam: Present: normal bowel sounds, soft. Absent: distended, tenderness Additional comments: Chandra catheter noted to be draining clear yellow urine. - Extremities Exam Extremities exam: Present: normal inspection. Absent: joint swelling, pedal edema, tenderness - Neurological Exam Neurological exam: Present: alert, oriented X3. Absent: no focal deficits ( Paralysis noted to the RLE. Diminished motion and sensation noted to the RUE.) - Psychiatric Psychiatric exam: Present: normal affect, normal mood - Skin Skin exam: Present: dry, intact, normal color, warm Consult Discharge Plan - Plan Referrals: Kathy Acosta DO [Resident] - - Attending Attestation I examined this patient and my medical decision-making was reviewed with the Resident Physician. I agree with the documented findings, disposition and treatment plan as described except to the extent set forth below.
[2018-04-17 17:46] LABS: Hematocrit 26.9 % (35.3-44.9); Hemoglobin 7.7 g/dL (11.5-15.4)
[2018-04-17] MEDS: Acetaminophen 325 MG TABLET PO PRN (21:50)
[2018-04-17] MEDS: traZODone 50 MG TABLET PO SCH (23:11)
[2018-04-18] MEDS: Piperacillin/Tazobactam 3.375 GM in 0.9 % Sodium Chloride Mini Bag 100 ML IVPB SCH ×3 (00:08→15:34)
[2018-04-18 03:59] LABS: Basophils % 0.2 %; Immature Granulocytes % 3.4 % (0-4)
[2018-04-18 04:01] LABS: Basophils # 0.1 K/mcL (0.0-0.2); Hemoglobin 6.8 g/dL (11.5-15.4); Lymphocytes # 0.5 K/mcL (0.6-4.6); Lymphocytes % 2.1 %; Mean Corpuscular HGB Conc 28.3 g/dL (31.6-35.5); Mean Corpuscular Hemoglobin 23.5 pg (28.0-33.3); Mean Platelet Volume 12.9 fL (9.4-12.4); Monocytes # 1.4 K/mcL (0.0-1.3); Monocytes % 5.8 %; Neutrophils # 20.6 K/mcL (1.6-8.9); Nucleated Red Blood Cells 6.9 /100 WBC (0); Platelet Count 275 K/mcL (140-400); Red Blood Count 2.89 M/mcL (3.82-4.97); Red Cell Distribution Width 24.8 % (11.5-14.5); Segmented Neutrophils % 88.5 %
[2018-04-18 04:08] LABS: INR 1.2; Prothrombin Time 13.5 Seconds (9.4-12.1)
[2018-04-18 04:14] LABS: Potassium 3.5 mEq/L (3.5-5.1)
[2018-04-18 04:15] LABS: Calcium 8.7 mg/dL (8.6-10.3)
[2018-04-18] MEDS: Ipratropium/Albuterol Neb 3 ML IH SCH ×5 (04:25→20:52)
[2018-04-18 04:28] LABS: Anisocytosis 3+ (Not Present); Macrocytosis Present (Not Present); Microcytosis Present (Not Present)
[2018-04-18 04:29] LABS: Platelet Estimate Normal (Normal); Poikilocytosis 1+ (Not Present); Reactive Lymphocytes Present (Not Present); Target Cells 1+ (Not Present)
[2018-04-18] MEDS: Pantoprazole 40 MG VIAL IVP SCH ×2 (05:44→17:30)
[2018-04-18] MEDS: Lactobacillus 1 EACH CAP.SPRINK PO SCH ×2 (08:09→22:29)
[2018-04-18] MEDS: predniSONE 20 MG TABLET PO SCH (08:10)
[2018-04-18] MEDS: Aspirin 81 MG TAB.CHEW PO SCH (08:10)
[2018-04-18] MEDS: Insulin LISPRO 300 UNITS/3 ML VIAL SQ SCH ×3 (08:11→17:31)
[2018-04-18] MEDS: Magnesium Oxide 400 MG TABLET PO SCH (08:11)
[2018-04-18] MEDS: Gabapentin 100 MG CAPSULE PO SCH ×3 (08:11→22:30)
[2018-04-18] MEDS: Sucralfate 1 GM TABLET PO SCH ×3 (08:11→17:30)
[2018-04-18] MEDS: Vancomycin Oral Soln 125 MG/2.5 ML UDC PO SCH ×4 (09:06→22:30)
[2018-04-18 11:36] LABS: Hematocrit 24.4 % (35.3-44.9)
--- NOTE | 2018-04-18 13:27 | Infectious Disease Progress No ---
Date of Encounter: 04/17/18 Time of Encounter: 13:24 - Assessment and Plan (1) Sepsis Current Visit: No Status: Acute Progressed to septic shock requiring vasopressors with end organ damage. Likely secondary to pneumonia and Hepatitis A. WBC trending down. Vasopressors off. Hypothermia has resolved. Blood cultures obtained 03/25/18 are negative 2 sets. Repeat blood cultures drawn 04/11/18 are negative x 2 sets. Qualifiers: Sepsis type: sepsis due to unspecified organism Qualified Code(s): A41.9 - Sepsis, unspecified organism (2) Pneumonia Current Visit: Yes Status: Acute Location: Multifocal, greatest in the left lower lobe. Causative organism: Unclear. No evidence of aspiration noted on exam. Respiratory infectious panel was negative. Strep pneumococcal and legionella urinary antigens were negative. The patient has been able to provide us with 2 sputum cultures that are both negative. CT chest 04/08/18 showed improvement, but CT abdomen and pelvis 04/11/18 showed persistent LLL pneumonia. Completed 12 days of Zosyn and 6 days of Vanc. About underlying pneumonia cannot be excluded. The radiologist interpreted as worsening since previous exam. Clinically, patient appears to have improved. She is requiring less oxygen and is more alert. Get CT chest to evaluate for PNA vs. edema vs. other. Continue Zosyn 3.375 grams IV Q8H. (day 7) Continue Vancomycin IV. Pharmacy to dose. Goal trough ~15. (day 7) Duration of treatment depends on the clinical picture. Monitor renal function and for drug toxicity and dose-adjust antibiotics. Qualifiers: Pneumonia type: due to unspecified organism Laterality: left Lung location: lower lobe of lung Qualified Code(s): J18.1 - Lobar pneumonia, unspecified organism (3) C. difficile colitis Current Visit: Yes Status: Acute Severe. Clinically, the patient's stools are more formed, but she is still stooling several times per day. Repeat CT of the abdomen and pelvis showed findings consistent with ileus and gastroenteritis on 04/08/[address] of the abdomen and pelvis 04/11/18 did not show any bowel thickening or toxic megacolon, but radiologist reports concern for ischemic bowel due to severe calcification of the mesenteric circulation. Status post colonoscopy 04/12/18 that was negative for pseudomembranous or toxic megacolon. IV Flagyl stopped by the primary team. Continue Vancomycin 125mg PO QID. (day 22). Duration of treatment depends on the clinical picture. (4) Abdominal pain Current Visit: Yes Status: Resolved Secondary to C diff colitis and gastroenteritis and Hepatitis A. GI consulted. Appreciate recommendations. LFTs this morning markedly elevated and lactic acid 9. CT abdomen and pelvis on 04/03/2018: Cholelithiasis, small amount of gas within the bladder. Decreased small bowel distention with small bowel wall thickening in the left upper quadrant; no toxic megacolon. Repeat CT of the abdomen and pelvis 04/11/18 showed findings concerning for ischemic bowel. Status post colonoscopy 04/12/15 that was negative for pseudomembranous colitis or toxic megacolon. Resolved. Qualifiers: Abdominal location: generalized Qualified Code(s): R10.84 - Generalized abdominal pain (5) Rectal bleeding Current Visit: Yes Status: Resolved Patient started having bloody stools overnight. Etiology unclear. Not sure that it is from the C. diff since her stools are formed. Status post colonoscopy 04/12/18 that was negative for bleeding. Appears resolved. Management and transfusion parameters per the primary team. (6) Elevated transaminase level Current Visit: Yes Status: Acute Likely secondary to Hepatitis A vs. shock liver. Trending down. Continue supportive care. (7) Lactic acidosis Current Visit: Yes Status: Resolved Likely secondary to sepsis. Improved. (8) Acute kidney injury Current Visit: Yes Status: Acute Etiology unclear. Serum creatinine trending up. Nephrology consulted and following. Continue to trend. CRRT started 04/12/18, discontinued 04/15/18. Possible intermittent HD. Await recommendations from nephrology. (9) Hepatitis A Current Visit: Yes Status: Acute Hepatitis A antibody positive. Likely contributing to the elevated LFTs. Continue to trend LFTs and continue supportive care. Qualifiers: Hepatic coma status: without hepatic coma Qualified Code(s): B15.9 - Hepatitis A without hepatic coma - Subjective Interval history: Patient seen and examined. No acute events noted overnight. Status post C-scope Sunday that was negative. More alert today. Denies shortness of breath or cough. Denies chest or abdominal pain. Denies fevers, chills, or rigors. Denies nausea, vomiting, or diarrhea. Per nursing documentation, four loose stools yesterday. Denies oral thrush. Currently on O2 via nasal cannula. Infect Dis PN-Objective Data - Labs CBC & Chem 7: 04/19/18 06:20 04/19/18 06:20 Labs: Laboratory Results - last 24 hr 04/17/18 04/17/18 04/17/18 07:40 11:46 16:18 WBC RBC Hgb Hct MCV MCH MCHC RDW Plt Count MPV Immature Gran % Seg Neutrophils % Lymphocytes % Monocytes % Eosinophils % Basophils % Neutrophils # Lymphocytes # Monocytes # Eosinophils # Basophils # Nucleated RBCs/100 WBC Reactive Lymphocytes Platelet Estimate Poikilocytosis Anisocytosis Microcytosis Macrocytosis Target Cells PT INR Sodium Potassium Chloride Carbon Dioxide BUN Creatinine Est GFR ( Amer) Est GFR (Non-Af Amer) BUN/Creatinine Ratio Glucose POC Glucose 114 H 137 H 207 H Calculated Osmolality Calcium Magnesium Random Vancomycin 04/17/18 04/17/18 04/18/18 17:27 20:53 03:25 WBC 23.3 H RBC 2.89 L Hgb 7.7 L 6.8 L Hct 26.9 L 24.0 L MCV 83.0 MCH 23.5 L MCHC 28.3 L RDW 24.8 H Plt Count 275 MPV 12.9 H Immature Gran % 3.4 Seg Neutrophils % 88.5 Lymphocytes % 2.1 Monocytes % 5.8 Eosinophils % 0.0 Basophils % 0.2 Neutrophils # 20.6 H Lymphocytes # 0.5 L Monocytes # 1.4 H Eosinophils # 0.0 Basophils # 0.1 Nucleated RBCs/100 WBC 6.9 H Reactive Lymphocytes Present A Platelet Estimate Normal Poikilocytosis 1+ A Anisocytosis 3+ A Microcytosis Present A Macrocytosis Present A Target Cells 1+ A PT INR Sodium Potassium Chloride Carbon Dioxide BUN Creatinine Est GFR ( Amer) Est GFR (Non-Af Amer) BUN/Creatinine Ratio Glucose POC Glucose 216 H Calculated Osmolality Calcium Magnesium Random Vancomycin 04/18/18 04/18/18 04/18/18 03:25 03:25 03:25 WBC RBC Hgb Hct MCV MCH MCHC RDW Plt Count MPV Immature Gran % Seg Neutrophils % Lymphocytes % Monocytes % Eosinophils % Basophils % Neutrophils # Lymphocytes # Monocytes # Eosinophils # Basophils # Nucleated RBCs/100 WBC Reactive Lymphocytes Platelet Estimate Poikilocytosis Anisocytosis Microcytosis Macrocytosis Target Cells PT 13.5 H INR 1.2 Sodium 144 Potassium 3.5 Chloride 109 H Carbon Dioxide 26 BUN 33 H Creatinine 1.93 H Est GFR ( Amer) 32 L Est GFR (Non-Af Amer) 26 L BUN/Creatinine Ratio 17 Glucose 187 H POC Glucose Calculated Osmolality 310 H Calcium 8.7 Magnesium 1.9 Random Vancomycin 04/18/18 04/18/18 04/18/18 03:25 07:35 11:25 WBC RBC Hgb 7.0 L Hct 24.4 L MCV MCH MCHC RDW Plt Count MPV Immature Gran % Seg Neutrophils % Lymphocytes % Monocytes % Eosinophils % Basophils % Neutrophils # Lymphocytes # Monocytes # Eosinophils # Basophils # Nucleated RBCs/100 WBC Reactive Lymphocytes Platelet Estimate Poikilocytosis Anisocytosis Microcytosis Macrocytosis Target Cells PT INR Sodium Potassium Chloride Carbon Dioxide BUN Creatinine Est GFR ( Amer) Est GFR (Non-Af Amer) BUN/Creatinine Ratio Glucose POC Glucose 139 H Calculated Osmolality Calcium Magnesium Random Vancomycin 26 Cultures: Cultures 04/11/18 11:55 Blood Culture - Final Peripheral Venipuncture No growth. Final report. 04/11/18 11:53 Blood Culture - Final Peripheral Venipuncture No growth. Final report. 04/05/18 13:38 Sputum Culture - Final Sputum 04/05/18 16:38 Sputum Culture - Final Sputum 03/27/18 04:15 Legionella Antigen - Final Urine,[place] Streptococcus pneumoniae Antigen (M - Final Serology 04/17/18 04/12/18 04/11/18 Range/Units 03:50 17:14 20:37 Urine Color Dark Yellow (Yellow) Urine Clarity Hazy A (Clear) Urine pH 5.0 (5.0-8.0) pH Units Ur Specific [place] 1.018 (1.010-1.025) Urine Protein Trace (Neg-Trace) mg/dL Urine Glucose (UA) Normal (Normal) mg/dL Urine Ketones Negative (Negative) mg/dL Urine Blood Negative (Negative) Urine Nitrite Negative (Negative) Urine Bilirubin Negative (Negative) Urine Urobilinogen Normal (Normal) mg/dL Ur Leukocyte Esterase Small H (Negative) Urine Microscopic RBC (0-3) per hpf Urine Microscopic WBC 15-30 H (0-3) per hpf Ur Squamous Epith Cells Many H (None-Few) per lpf Urine Bacteria Many H (None-Few) per hpf Hyaline Casts Few (None-Few) per lpf Urine Yeast Many H Ur Culture Indicated? NO. A (NO) Nasal Screen MRSA (PCR) (Negative) Stl C. cayetanensis PCR (Not detect) Stool Rotavirus A PCR (Not detect) Stl Adenov F 40/41 PCR (Not detect) Stool Astrovirus (PCR) (Not detect) Stool Campylobacter PCR (Not detect) Stl C. diff Tox B Gene (Negative) Stl C. diff Tox A/B PCR (Not detect) Stool Cryptosporidium PCR (Not detect) Stl Sh Tox Pr E STEC PCR (Not detect) Stool E coli O157 PCR (Not detect) Stl Enterotoxigenic E PCR (Not detect) Stool EPEC (PCR) (Not detect) Stool EAEC (PCR) (Not detect) Stl E. histolytica PCR (Not detect) Stool Giardia Lamblia PCR (Not detect) Stool Salmonella PCR (Not detect) Stool Sapovirus (PCR) (Not detect) Stl P. shigelloides PCR (Not detect) Stl Shigella/EIEC PCR (Not detect) St Y.enterocolitica PCR (Not detect) Stool Vibrio (PCR) (Not detect) Stl Vibrio cholerae PCR (Not detect) Stl Norovirus GI/GII PCR (Not detect) Stl GI Panel (PCR) Com Chlamy pneumoniae PCR (Not Detect) Adenovirus (PCR) (Not Detect) B. pertussis DNA (PCR) (Not Detect) B.parapertussis DNA PCR (Not Detect) Coronavirus OC43 (PCR) (Not Detect) Coronavirus HKU1 (PCR) (Not Detect) Coronavirus 229E (PCR) (Not Detect) Coronavirus NL63 (PCR) (Not Detect) Hepatitis A IgM Ab Nonreactive (Nonreactive) Hepatitis A Ab Total POSITIVE A (Negative) Hep Bs Antigen Nonreactive (Nonreactive) Hep B Core IgM Ab Nonreactive (Nonreactive) Hepatitis C Ab Screen Nonreactive (Nonreactive) Human Metapneumovir PCR (Not Detect) Influenza A (H1) PCR (Not Detect) Influ A (H1N1/09) PCR (Not Detect) Influenza A (H3) PCR (Not Detect) Influenza A Untype (PCR) (Not Detect) Influenza Type B (PCR) (Not Detect) Mycoplasma pneumon IgG (<=0.09) U/L Mycoplasma pneumon IgM (<=0.76) U/L M.pneumoniae DNA (PCR) (Not Detect) Parainfluenza 1 (PCR) (Not Detect) Parainfluenza 2 (PCR) (Not Detect) Parainfluenza 3 (PCR) (Not Detect) Parainfluenza 4 (PCR) (Not Detect) RSV (PCR) (Not Detect) Entero/Rhino (PCR) (Not Detect) 04/05/18 04/05/18 04/05/18 Range/Units 12:12 09:20 09:20 Urine Color (Yellow) Urine Clarity (Clear) Urine pH (5.0-8.0) pH Units Ur Specific [place] (1.010-1.025) Urine Protein (Neg-Trace) mg/dL Urine Glucose (UA) (Normal) mg/dL Urine Ketones (Negative) mg/dL Urine Blood (Negative) Urine Nitrite (Negative) Urine Bilirubin (Negative) Urine Urobilinogen (Normal) mg/dL Ur Leukocyte Esterase (Negative) Urine Microscopic RBC (0-3) per hpf Urine Microscopic WBC (0-3) per hpf Ur Squamous Epith Cells (None-Few) per lpf Urine Bacteria (None-Few) per hpf Hyaline Casts (None-Few) per lpf Urine Yeast Ur Culture Indicated? (NO) Nasal Screen MRSA (PCR) Negative (Negative) Stl C. cayetanensis PCR (Not detect) Stool Rotavirus A PCR (Not detect) Stl Adenov F 40/41 PCR (Not detect) Stool Astrovirus (PCR) (Not detect) Stool Campylobacter PCR (Not detect) Stl C. diff Tox B Gene (Negative) Stl C. diff Tox A/B PCR (Not detect) Stool Cryptosporidium PCR (Not detect) Stl Sh Tox Pr E STEC PCR (Not detect) Stool E coli O157 PCR (Not detect) Stl Enterotoxigenic E PCR (Not detect) Stool EPEC (PCR) (Not detect) Stool EAEC (PCR) (Not detect) Stl E. histolytica PCR (Not detect) Stool Giardia Lamblia PCR (Not detect) Stool Salmonella PCR (Not detect) Stool Sapovirus (PCR) (Not detect) Stl P. shigelloides PCR (Not detect) Stl Shigella/EIEC PCR (Not detect) St Y.enterocolitica PCR (Not detect) Stool Vibrio (PCR) (Not detect) Stl Vibrio cholerae PCR (Not detect) Stl Norovirus GI/GII PCR (Not detect) Stl GI Panel (PCR) Com Chlamy pneumoniae PCR Not Detected (Not Detect) Adenovirus (PCR) Not Detected (Not Detect) B. pertussis DNA (PCR) Not Detected (Not Detect) B.parapertussis DNA PCR Not Detected (Not Detect) Coronavirus OC43 (PCR) Not Detected (Not Detect) Coronavirus HKU1 (PCR) Not Detected (Not Detect) Coronavirus 229E (PCR) Not Detected (Not Detect) Coronavirus NL63 (PCR) Not Detected (Not Detect) Hepatitis A IgM Ab (Nonreactive) Hepatitis A Ab Total (Negative) Hep Bs Antigen (Nonreactive) Hep B Core IgM Ab (Nonreactive) Hepatitis C Ab Screen (Nonreactive) Human Metapneumovir PCR Not Detected (Not Detect) Influenza A (H1) PCR Not Detected (Not Detect) Influ A (H1N1/09) PCR Not Detected (Not Detect) Influenza A (H3) PCR Not Detected (Not Detect) Influenza A Untype (PCR) Not Detected (Not Detect) Influenza Type B (PCR) Not Detected (Not Detect) Mycoplasma pneumon IgG 0.48 H (<=0.09) U/L Mycoplasma pneumon IgM 0.13 (<=0.76) U/L M.pneumoniae DNA (PCR) Not Detected (Not Detect) Parainfluenza 1 (PCR) Not Detected (Not Detect) Parainfluenza 2 (PCR) Not Detected (Not Detect) Parainfluenza 3 (PCR) Not Detected (Not Detect) Parainfluenza 4 (PCR) Not Detected (Not Detect) RSV (PCR) Not Detected (Not Detect) Entero/Rhino (PCR) Not Detected (Not Detect) 03/29/18 03/27/18 03/26/18 Range/Units 08:40 04:15 20:10 Urine Color Yellow (Yellow) Urine Clarity Clear (Clear) Urine pH 5.5 (5.0-8.0) pH Units Ur Specific [place] 1.023 (1.010-1.025) Urine Protein Negative (Neg-Trace) mg/dL Urine Glucose (UA) Normal (Normal) mg/dL Urine Ketones Negative (Negative) mg/dL Urine Blood Trace H (Negative) Urine Nitrite Negative (Negative) Urine Bilirubin Negative (Negative) Urine Urobilinogen Normal (Normal) mg/dL Ur Leukocyte Esterase Small H (Negative) Urine Microscopic RBC 3-5 H (0-3) per hpf Urine Microscopic WBC 5-15 H (0-3) per hpf Ur Squamous Epith Cells Many H (None-Few) per lpf Urine Bacteria None Seen (None-Few) per hpf Hyaline Casts Few (None-Few) per lpf Urine Yeast Test Not Performed Ur Culture Indicated? NO. A (NO) Nasal Screen MRSA (PCR) (Negative) Stl C. cayetanensis PCR (Not detect) Stool Rotavirus A PCR (Not detect) Stl Adenov F 40/41 PCR (Not detect) Stool Astrovirus (PCR) (Not detect) Stool Campylobacter PCR (Not detect) Stl C. diff Tox B Gene Positive A (Negative) Stl C. diff Tox A/B PCR (Not detect) Stool Cryptosporidium PCR (Not detect) Stl Sh Tox Pr E STEC PCR (Not detect) Stool E coli O157 PCR (Not detect) Stl Enterotoxigenic E PCR (Not detect) Stool EPEC (PCR) (Not detect) Stool EAEC (PCR) (Not detect) Stl E. histolytica PCR (Not detect) Stool Giardia Lamblia PCR (Not detect) Stool Salmonella PCR (Not detect) Stool Sapovirus (PCR) (Not detect) Stl P. shigelloides PCR (Not detect) Stl Shigella/EIEC PCR (Not detect) St Y.enterocolitica PCR (Not detect) Stool Vibrio (PCR) (Not detect) Stl Vibrio cholerae PCR (Not detect) Stl Norovirus GI/GII PCR (Not detect) Stl GI Panel (PCR) Com Chlamy pneumoniae PCR (Not Detect) Adenovirus (PCR) (Not Detect) B. pertussis DNA (PCR) (Not Detect) B.parapertussis DNA PCR (Not Detect) Coronavirus OC43 (PCR) (Not Detect) Coronavirus HKU1 (PCR) (Not Detect) Coronavirus 229E (PCR) (Not Detect) Coronavirus NL63 (PCR) (Not Detect) Hepatitis A IgM Ab (Nonreactive) Hepatitis A Ab Total (Negative) Hep Bs Antigen (Nonreactive) Hep B Core IgM Ab (Nonreactive) Hepatitis C Ab Screen (Nonreactive) Human Metapneumovir PCR (Not Detect) Influenza A (H1) PCR (Not Detect) Influ A (H1N1/09) PCR (Not Detect) Influenza A (H3) PCR (Not Detect) Influenza A Untype (PCR) (Not Detect) Influenza Type B (PCR) (Not Detect) Mycoplasma pneumon IgG 0.30 H (<=0.09) U/L Mycoplasma pneumon IgM 0.06 (<=0.76) U/L M.pneumoniae DNA (PCR) (Not Detect) Parainfluenza 1 (PCR) (Not Detect) Parainfluenza 2 (PCR) (Not Detect) Parainfluenza 3 (PCR) (Not Detect) Parainfluenza 4 (PCR) (Not Detect) RSV (PCR) (Not Detect) Entero/Rhino (PCR) (Not Detect) 03/26/18 Range/Units 20:10 Urine Color (Yellow) Urine Clarity (Clear) Urine pH (5.0-8.0) pH Units Ur Specific [place] (1.010-1.025) Urine Protein (Neg-Trace) mg/dL Urine Glucose (UA) (Normal) mg/dL Urine Ketones (Negative) mg/dL Urine Blood (Negative) Urine Nitrite (Negative) Urine Bilirubin (Negative) Urine Urobilinogen (Normal) mg/dL Ur Leukocyte Esterase (Negative) Urine Microscopic RBC (0-3) per hpf Urine Microscopic WBC (0-3) per hpf Ur Squamous Epith Cells (None-Few) per lpf Urine Bacteria (None-Few) per hpf Hyaline Casts (None-Few) per lpf Urine Yeast Ur Culture Indicated? (NO) Nasal Screen MRSA (PCR) (Negative) Stl C. cayetanensis PCR Not detected (Not detect) Stool Rotavirus A PCR Not detected (Not detect) Stl Adenov F 40/41 PCR Not detected (Not detect) Stool Astrovirus (PCR) Not detected (Not detect) Stool Campylobacter PCR Not detected (Not detect) Stl C. diff Tox B Gene (Negative) Stl C. diff Tox A/B PCR See reflex test A (Not detect) Stool Cryptosporidium PCR Not detected (Not detect) Stl Sh Tox Pr E STEC PCR Not detected (Not detect) Stool E coli O157 PCR Not detected (Not detect) Stl Enterotoxigenic E PCR Not detected (Not detect) Stool EPEC (PCR) Not detected (Not detect) Stool EAEC (PCR) Not detected (Not detect) Stl E. histolytica PCR Not detected (Not detect) Stool Giardia Lamblia PCR Not detected (Not detect) Stool Salmonella PCR Not detected (Not detect) Stool Sapovirus (PCR) Not detected (Not detect) Stl P. shigelloides PCR Not detected (Not detect) Stl Shigella/EIEC PCR Not detected (Not detect) St Y.enterocolitica PCR Not detected (Not detect) Stool Vibrio (PCR) Not detected (Not detect) Stl Vibrio cholerae PCR Not detected (Not detect) Stl Norovirus GI/GII PCR Not detected (Not detect) Stl GI Panel (PCR) Com See below Chlamy pneumoniae PCR (Not Detect) Adenovirus (PCR) (Not Detect) B. pertussis DNA (PCR) (Not Detect) B.parapertussis DNA PCR (Not Detect) Coronavirus OC43 (PCR) (Not Detect) Coronavirus HKU1 (PCR) (Not Detect) Coronavirus 229E (PCR) (Not Detect) Coronavirus NL63 (PCR) (Not Detect) Hepatitis A IgM Ab (Nonreactive) Hepatitis A Ab Total (Negative) Hep Bs Antigen (Nonreactive) Hep B Core IgM Ab (Nonreactive) Hepatitis C Ab Screen (Nonreactive) Human Metapneumovir PCR (Not Detect) Influenza A (H1) PCR (Not Detect) Influ A (H1N1/09) PCR (Not Detect) Influenza A (H3) PCR (Not Detect) Influenza A Untype (PCR) (Not Detect) Influenza Type B (PCR) (Not Detect) Mycoplasma pneumon IgG (<=0.09) U/L Mycoplasma pneumon IgM (<=0.76) U/L M.pneumoniae DNA (PCR) (Not Detect) Parainfluenza 1 (PCR) (Not Detect) Parainfluenza 2 (PCR) (Not Detect) Parainfluenza 3 (PCR) (Not Detect) Parainfluenza 4 (PCR) (Not Detect) RSV (PCR) (Not Detect) Entero/Rhino (PCR) (Not Detect) - Impressions Impressions Chest X-Ray 04/17/18 06:00 IMPRESSION: Findings of congestive heart failure including bibasilar consolidation and bilateral pleural effusion. Underlying pneumonia is a consideration. Findings have progressed since prior study. Calcific atherosclerotic disease aorta. D/ / Leo Gonzalez / Leo Gonzalez Interpreting Provider: Leo Gonzalez Exam - Constitutional Vitals: Temp Pulse Resp BP Pulse Ox 98.8 F 104 18 156/79 100 04/18/18 11:24 04/18/18 11:24 04/18/18 11:24 04/18/18 11:24 04/18/18 11:24 General appearance: average body habitus, cooperative, no acute distress - Head Head exam: Present: atraumatic, normal inspection, normocephalic - Eye Eye exam: Present: EOMI, normal appearance, PERRL Pupils: Present: normal accommodation - ENT ENT exam: Present: mucous membranes moist - Neck Neck exam: Present: normal inspection Additional comments: Temporary dialysis catheter noted to the right neck with transparent dressing clean, dry, and intact. - Respiratory Respiratory exam: Present: CTAB. Absent: rales, respiratory distress, rhonchi, wheezes - Cardiovascular Cardiovascular exam: Present: +S1, +S2, tachycardia. Absent: irregular rhythm - GI/Abdominal GI/Abdominal exam: Present: normal bowel sounds, soft. Absent: distended, tenderness Additional comments: Chandra catheter noted to be draining clear yellow urine. - Extremities Exam Extremities exam: Present: pedal edema (1+ right lower extremity). Absent: joint swelling, tenderness - Neurological Exam Neurological exam: Present: alert, oriented X3. Absent: no focal deficits ( Paralysis noted to the right lower extremity. Decreased motor and sensation in the right upper extremity.) - Skin Skin exam: Present: dry, intact, normal color, warm Consult Discharge Plan - Plan Referrals: Kathy Acosta DO [Resident] - 04/26/18 10:00 am - Attending Attestation I examined this patient and my medical decision-making was reviewed with the Resident Physician. I agree with the documented findings, disposition and treatment plan as described except to the extent set forth below.
[2018-04-18] MEDS ORDERED: Loperamide 1 MG/5 ML UDC PO PRN (15:00)
--- NOTE | 2018-04-18 15:35 | Internal Med Progress Note ---
<Lucero Salas - Last Filed: 04/18/18 17:39> Hospitalist Progress Note - Encounter Date of Encounter: 04/18/18 Time of Encounter: 09:35 - Subjective Interval History: Ms. Lauren was examined at bedside this morning. She was laying in bed on nasal canula. She had no events overnight. She remained afebrile. Blood pressure was elevated and her home metoprolol was restarted today. Today her hemoglobin was noted to be 6.9 and repeat was 7.7. She was asymptomatic but has received 2 units of blood. She had no further episodes of emesis. She continues to have loose bowel movements and due to concern for developing sacral decubitus ulcer she has a rectal tube in place. She denied any abdominal pain, nausea, emesis, fever, chills or chest pain. - Exam Vitals: Temp Pulse Resp BP Pulse Ox 98.6 F 99 18 190/88 98 04/18/18 15:20 04/18/18 15:20 04/18/18 15:20 04/18/18 15:20 04/18/18 15:20 Exam: Constitutional: Alert, in no acute distress, on nasal canula HEENT: Normocephalic, atraumatic, moist mucus membranes Heart: Normal, regular rate and rhythm, no murmurs Lungs: lungs clear and equal bilaterally Abdomen: Soft, hypoactive bowel sounds, non tender Extremities: No edema of lower extremity or upper extremities, warm, nontender Skin: Skin warm and dry, no lesions, no rashes, no jaundice Psych: thought content congruent, appropriate affect Neurological: Alert and oriented x 3, right upper and lower extremities paralysis due to previous CVA - Assessment and Plan (1) COPD (chronic obstructive pulmonary disease) Current Visit: Yes Status: Acute Assessment and Plan: History of COPD, completed prednisone taper during her admission. She is not in acute exacerbation. She is coughing and having sputum production. Plan: -Continue with duoneb Q4h prn -Continue to wean O2 supplementation -Added mucinex (2) Pneumonia Current Visit: Yes Status: Acute Assessment and Plan: CT chest on 04/03 showed multifocal PNA, greatest in the LLL. Patient had worsening left-sided infiltrates on 04/13. IV added vancomycin was added along with zosyn. She had V/Q mismatch in the ICU she remained stable. Plan: -Infectious disease and pulmonology consulted -Continue zosyn (day 7 since restarted, received 12 days previously) IV vancomycin per ID recommendations -Continue to Bipap at night -CBC in the morning -Chest xray shows ongoing bilateral bibasilar consolidation -Continue diet, nectar thickened (3) C. difficile colitis Current Visit: Yes Status: Acute Assessment and Plan: Diarrhea ongoing, hepatitis A IgM is negative so acute phase of hepatitis A is resolved. Continues to have poor oral intake. Treatment regimen according to infectious disease. She did not show any evidence of pseudomembranous colitis and toxic megacolon during sigmoidoscopy on 04/12. GI recommended cholestyramine with imodium. Plan: -ID recommends continuing oral vancomycin, day 21 -Continue to monitor stool for changes in consistency -Continue probiotics -Continue to monitor vitals and CBC (4) Chronic anemia Current Visit: Yes Status: Acute Assessment and Plan: Likely acute cause. Her hemoglobin today is 6.9 and noted to have an increased in BUN although she does have recent renal impairment. No source of emesis. Plan: -Continue to monitor CBC -Pending HH -GI consulted, recommend outpatient EGD (5) Diabetes type 2, controlled Current Visit: Yes Status: Acute Assessment and Plan: Her glucose today was 187 this morning and restarted her diet today, likely elevated due to nectar thickened diet. Plan: Continue sliding scale Continue to monitor Will consider adding her long acting glucose depending on her dietary intake (6) Pulmonary nodule Current Visit: Yes Status: Acute Assessment and Plan: CT of the chest noted a small lobulated nodule on the right upper lung lobe posteriorly Plan: Need to be followed to resolution after pneumonia resolves outpatient (7) Hepatitis A Current Visit: Yes Status: Acute Assessment and Plan: Tested positive on 04/12. Because of the long incubation period of hepatis A she may have had hepatitis A prior to admission but liver enzymes worsened on 04/12. She had Hep A antibody positive on 04/12 and repeat Hep A IgM was negative on . (8) Sepsis Current Visit: Yes Status: Resolved Assessment and Plan: Resolved but continues to have . She progressed to septic shock on 04/12 and required vasopressors for one day. Her blood cultures remained negative. Likely source secondary to pneumonia and hepatitis A. Blood cultures negative from and negative 10/4. Plan: Continue pneumonia management, ID recommends continuing zosyn--day 7 total doses , received 12 days previously which was stopped for 2 days Continue IV vancomycin, per IDs recommendation, day 7 Continue monitoring vitals CBC in the morning Repeat chest xray on 04/17 shows bibasilar consolidation (9) Shock liver Current Visit: Yes Status: Resolved Assessment and Plan: Resolved. Noted to have shock liver on 04/12. Her AST was 2981 on 04/12 and ALT were noted to be above 500. Statin was discontinued. She received n-acetylcysteine while in the ICU. Right upper ultrasound shwoed no evidence of hepatic venous thrombisis. Hepatitis A positive. Hepatitis B and C pending. Yesterday her AST was 64 and ALT is 205. Alk phos 200. Has no abdominal pain. Improving liver function and her hepatitis A IgM, Hepatitis B and C are nonreactive. Plan: Continue to monitor LFTs tomorrow (10) NIGEL (acute kidney injury) Current Visit: Yes Status: Acute Assessment and Plan: Today creatinine is 1.93 and yesterday was 1.60. Had an NIGEL on 04/12, likely due to septic shock. She was anuric, having minimal urinary output--200 so far today. Nephrology was consulted in the ICU and she received hemodialysis and they continue to follow. Plan: Per nephrology recommendation for hemodialysis Continue strict I/Os Continue to dose medications renally (11) DVT prophylaxis Current Visit: Yes Status: Acute Assessment and Plan: SCDs (12) Hypertension Current Visit: Yes Status: Acute Assessment and Plan: History of hypertension. She is on home furosemide and metoprolol 100 mg BID. Her blood pressure was much better the past a few days but has become elevated again. She was also tachycardic today. Plan: Restarted home metoprolol dosage Stopped fluids, she has good oral intake Will consider adding home furosemide tomorrow if her blood pressure remains high - Time Spent with Patient Total time spent is greater than 50% in coordination of care (as documented) at patient's floor/unit and/or counseling patient: 25 - 35 minutes Plan of Care Discussed with: patient Internal Medicine: Result - Labs CBC & Chem 7: 04/18/18 11:25 04/18/18 03:25 Labs: Short CBC 10/10/18 10/11/18 10/11/18 Range/Units 17:27 03:25 11:25 WBC 23.3 H (4.3-11.1) K/mcL Hgb 7.7 L 6.8 L 7.0 L (11.5-15.4) g/dL Hct 26.9 L 24.0 L 24.4 L (35.3-44.9) % Plt Count 275 (140-400) K/mcL Neutrophils # 20.6 H (1.6-8.9) K/mcL BMP 04/18/18 03:25 Sodium 144 Potassium 3.5 Chloride 109 H Carbon Dioxide 26 BUN 33 H Creatinine 1.93 H Glucose 187 H Calcium 8.7 - ABG Interpretation ABG results: ABG ABG pH 7.36 pH Units (7.32-7.45) 04/12/18 21:32 ABG pCO2 51 mmHg (35-45) H 04/12/18 21:32 ABG pO2 84 mmHg (85-104) L 04/12/18 21:32 ABG O2 Saturation 96 % (95-98) 04/12/18 21:32 PT/INR, D-dimer PT 13.5 Seconds (9.4-12.1) H 04/18/18 03:25 - Impressions Impressions Chest X-Ray 04/17/18 06:00 IMPRESSION: Findings of congestive heart failure including bibasilar consolidation and bilateral pleural effusion. Underlying pneumonia is a consideration. Findings have progressed since prior study. Calcific atherosclerotic disease aorta. D/ / Leo Gonzalez / Leo Gonzalez Interpreting Provider: Leo Gonzalez Consult Discharge Plan - Plan Referrals: aKthy Acosta DO [Resident] - <Bruce Delgado - Last Filed: 04/18/18 18:18> Hospitalist Progress Note - Encounter Date of Encounter: 04/18/18 - Exam Vitals: Temp Pulse Resp BP Pulse Ox 98.5 F 87 18 132/88 99 04/18/18 17:52 04/18/18 17:52 04/18/18 17:52 04/18/18 17:52 04/18/18 16:07 - Assessment and Plan (1) COPD (chronic obstructive pulmonary disease) Current Visit: Yes Status: Acute (2) Pneumonia Current Visit: Yes Status: Acute (3) C. difficile colitis Current Visit: Yes Status: Acute (4) Chronic anemia Current Visit: Yes Status: Acute (5) Diabetes type 2, controlled Current Visit: Yes Status: Acute (6) Pulmonary nodule Current Visit: Yes Status: Acute (7) Hepatitis A Current Visit: Yes Status: Acute (8) Sepsis Current Visit: Yes Status: Resolved (9) DVT prophylaxis Current Visit: Yes Status: Acute (10) Shock liver Current Visit: Yes Status: Resolved (11) NIGEL (acute kidney injury) Current Visit: Yes Status: Acute (12) Hypertension Current Visit: Yes Status: Acute (13) Anemia Current Visit: Yes Status: Suspected - Time Spent with Patient Total time spent is greater than 50% in coordination of care (as documented) at patient's floor/unit and/or counseling patient: Internal Medicine: Result - Labs CBC & Chem 7: 04/18/18 11:25 04/18/18 03:25 Labs: Short CBC 04/18/18 04/18/18 Range/Units 03:25 11:25 WBC 23.3 H (4.3-11.1) K/mcL Hgb 6.8 L 7.0 L (11.5-15.4) g/dL Hct 24.0 L 24.4 L (35.3-44.9) % Plt Count 275 (140-400) K/mcL Neutrophils # 20.6 H (1.6-8.9) K/mcL BMP 04/18/18 03:25 Sodium 144 Potassium 3.5 Chloride 109 H Carbon Dioxide 26 BUN 33 H Creatinine 1.93 H Glucose 187 H Calcium 8.7 - ABG Interpretation ABG results: ABG ABG pH 7.36 pH Units (7.32-7.45) 04/12/18 21:32 ABG pCO2 51 mmHg (35-45) H 04/12/18 21:32 ABG pO2 84 mmHg (85-104) L 04/12/18 21:32 ABG O2 Saturation 96 % (95-98) 04/12/18 21:32 PT/INR, D-dimer PT 13.5 Seconds (9.4-12.1) H 04/18/18 03:25 - Impressions Impressions Chest X-Ray 04/17/18 06:00 IMPRESSION: Findings of congestive heart failure including bibasilar consolidation and bilateral pleural effusion. Underlying pneumonia is a consideration. Findings have progressed since prior study. Calcific atherosclerotic disease aorta. D/ / Leo Gonzalez / Leo Gonzalez Interpreting Provider: Leo Gnozalez - Attending Attestation I examined this patient and my medical decision-making was reviewed with the Resident Physician on 04/18/18. I agree with the documented findings, disposition and treatment plan as described except to the extent set forth below. Ms Lauren is currently admitted for liver failure due to hep A and sepsis. She remains moderate to high risk due to potential for worsening clinical status. Ms Lauren is feeling somewhat better today. No fever or chills. No chest pain. Hemoglobin lower so will get blood today. Exam alert Comfortable Mucus membranes dry Heart distant No wheeze abd soft I/P 1. Hep A 2. Anemia - transfuse today Further diagnoses and plan as above. <Josue,Lucero - Last Filed: 04/18/18 17:39> (1) COPD (chronic obstructive pulmonary disease) Qualifiers: COPD type: chronic bronchitis Chronic bronchitis type: mucopurulent Qualified Code(s): J41.1 - Mucopurulent chronic bronchitis (2) Pneumonia Qualifiers: Pneumonia type: due to unspecified organism Laterality: bilateral Lung location: lower lobe of lung Qualified Code(s): J18.1 - Lobar pneumonia, unspecified organism (5) Diabetes type 2, controlled Qualifiers: Diabetes mellitus buttermaker continuous churn insulin use: with shelter use Diabetes mellitus complication status: with hyperglycemia Qualified Code(s): E11.65 - Type 2 diabetes mellitus with hyperglycemia; 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 (7) Hepatitis A Qualifiers: Hepatic coma status: without hepatic coma Qualified Code(s): B15.9 - Hepatitis A without hepatic coma (8) Sepsis Qualifiers: Sepsis type: sepsis due to unspecified organism Qualified Code(s): A41.9 - Sepsis, unspecified organism <Bruce Delgado A - Last Filed: 04/18/18 18:18> (1) COPD (chronic obstructive pulmonary disease) Qualifiers: COPD type: chronic bronchitis Chronic bronchitis type: mucopurulent Qualified Code(s): J41.1 - Mucopurulent chronic bronchitis (2) Pneumonia Qualifiers: Pneumonia type: due to unspecified organism Laterality: bilateral Lung location: lower lobe of lung Qualified Code(s): J18.1 - Lobar pneumonia, unspecified organism (5) Diabetes type 2, controlled Qualifiers: Diabetes mellitus shelter insulin use: with buttermaker continuous churn use Diabetes mellitus complication status: with hyperglycemia Qualified Code(s): E11.65 - Type 2 diabetes mellitus with hyperglycemia; Z79.4 - skilled nursing (current) use of insulin (7) Hepatitis A Qualifiers: Hepatic coma status: without hepatic coma Qualified Code(s): B15.9 - Hepatitis A without hepatic coma (8) Sepsis Qualifiers: Sepsis type: sepsis due to unspecified organism Qualified Code(s): A41.9 - Sepsis, unspecified organism (12) Hypertension Qualifiers: Hypertension type: essential hypertension Qualified Code(s): I10 - Essential (primary) hypertension (13) Anemia Qualifiers: Anemia type: iron deficiency Iron deficiency anemia type: chronic blood loss Qualified Code(s): D50.0 - Iron deficiency anemia secondary to blood loss ( chronic)
[2018-04-18] MEDS ORDERED: *HR* Labetalol 20 MG/4 ML SYRINGE IVP ONE (17:11)
[2018-04-18] MEDS: Metoprolol 100 MG TABLET PO SCH ×2 (17:30→22:29)
[2018-04-18] MEDS ORDERED: 0.9 % Sodium Chloride 250 ML ONE (17:44)
--- NOTE | 2018-04-18 18:20 | Nephrology Progress Note ---
Date of Encounter: 04/18/18 Time of Encounter: 17:30 - Assessment and Plan (1) Acute kidney injury Current Visit: Yes Status: Acute SCr sloop of worsening is slowing down, and as long as the supratherapeutic serum Vanco levels do not impair renal recovery, I would expect her SCr to start reaching a plateau soon. She is not uremic nor hyperkalemic or volume overloaded, so no indications for HD today. However if her SCr does not stablize (for example the IV Vanco may delay renal recovery), I recommend keeping the temporary HD catheter in place for now. Okay to eat from my perspective and she actually did not need to be NPO; discussed with the floor RN earlier this afternoon. Will assess daily for dialysis needs. Continue to follow a renal protective strategy as able. Anemia: suspect multifactorial, and transfusion parameters as per primary. Agree with PRBCs. Thank you. (2) Elevated transaminase level Current Visit: Yes Status: Acute Trending better. (3) Anemia Current Visit: Yes Status: Acute Goal Hgb is 10-11; see above. Qualifiers: Qualified Code(s): D64.9 - Anemia, unspecified (4) Acute and chronic respiratory failure with hypoxia Current Visit: Yes Status: Deleted As per primary (5) C. difficile colitis Current Visit: Yes Status: Acute As per primary (6) History of CVA (cerebrovascular accident) Current Visit: No Status: Chronic Subjective Principal diagnosis: Sepsis Interval history: Pt was seen/examined this afternoon while eating dinner. She did not affirm N/V/ D or diminished appetite. She was coughing while eating. Her Floor RN was present and starting a BB for the HTN (agree). Objective - Vital Signs Vital signs: Vital Signs Temp Pulse Resp BP Pulse Ox 04/18/18 17:52 98.5 F 87 18 132/88 04/18/18 16:07 18 99 04/18/18 15:20 98.6 F 99 18 190/88 98 04/18/18 11:24 98.8 F 104 18 156/79 100 04/18/18 10:56 16 93 04/18/18 07:40 98.9 F 109 18 163/78 93 04/18/18 07:28 20 88 04/18/18 04:26 19 100 04/18/18 03:15 97.8 F 82 29 157/67 100 04/18/18 00:03 19 166/75 90 04/17/18 23:19 98.8 F 107 20 166/72 90 04/17/18 20:46 19 163/67 94 04/17/18 19:01 98.8 F 100 20 163/67 94 Intake and Output 04/18/18 04/18/18 04/18/18 07:59 15:59 23:59 Intake Total 1320 / 1320 100 / 100 0 / 0 Output Total 175 / 175 Balance 1145 / 1145 100 / 100 0 / 0 Intake: IV Fluids 1100 / 1100 100 / 100 0.45% Sodium Chloride 1000 Ml 1000 / 1000 1000 Ml 1,000 ML @ 75 mls/hr IVC .[id number] [facility] Rx#:[id number] Zosyn 3.375 GM In 0.9 % Sodium 100 / 100 100 / 100 Chloride (Mini-Bag +) 100 ML @ 25 mls/hr IVPB Q8HR [facility] Rx#: [id number] Oral 220 / 220 0 / 0 Blood Product 0 / 0 Rbcs Leuko Poor As-3 2nd Unit 0 / 0 [id number] Output: Catheter 175 / 175 Urethral (Chandra) 0 / 0 Other: Meal Lunch Percent of Meal Consumed 0% Stool Size Small Stool Consistency loose Stool Color Brown # Bowel Movements 1 Blood Glucose* 139 165 - General Appearance General appearance: Present: well-developed, cachectic, chronically ill, fatigue , frail EENT: Present: ATNC, mucous membranes moist Neck: Present: supple Respiratory: Present: clear Cardiology: Present: no edema, normal S1 (tachycardia), normal S2 Dialysis Vascular Access: Venous Catheter (Rt IJ temp HD catheter with Tegaderm and no surrounding erythema.) Gastrointestinal: Present: normoactive bowel sounds, no tenderness, no guarding Integumentary: Present: warm and dry Neurologic: Present: no asterixis Additional Comments: Right hemiparesis Musculoskeletal: Present: no clubbing Psychiatric: Present: mood/affect appropriate, cooperative - Lab 04/18/18 11:25 04/18/18 03:25 Most recent lab results ABG pH 7.36 pH Units (7.32-7.45) 04/12/18 21:32 ABG pCO2 51 mmHg (35-45) H 04/12/18 21:32 ABG pO2 84 mmHg (85-104) L 04/12/18 21:32 ABG HCO3 29 mEq/L (21-27) H 04/12/18 21:32 ABG O2 Saturation 96 % (95-98) 04/12/18 21:32 Calcium 8.7 mg/dL (8.6-10.3) 04/18/18 03:25 Phosphorus 4.0 mg/dL (2.7-4.5) 04/16/18 03:43 Magnesium 1.9 mg/dL (1.6-2.6) 04/18/18 03:25 Consult Discharge Plan - Plan Referrals: Kathy Acosta DO [Resident] -
[2018-04-18] MEDS: traZODone 50 MG TABLET PO SCH (22:28)
[2018-04-19] MEDS: Ipratropium/Albuterol Neb 3 ML IH SCH ×6 (00:22→20:25)
[2018-04-19] MEDS: Piperacillin/Tazobactam 3.375 GM in 0.9 % Sodium Chloride Mini Bag 100 ML IVPB SCH ×4 (00:30→23:44)
[2018-04-19] MEDS: Pantoprazole 40 MG VIAL IVP SCH (06:13)
[2018-04-19] MEDS: Insulin LISPRO 300 UNITS/3 ML VIAL SQ SCH ×5 (06:31→21:14)
[2018-04-19 06:41] LABS: Basophils % 0.2 %; Immature Granulocytes % 1.6 % (0-4); Mean Corpuscular Hemoglobin 25.3 pg (28.0-33.3)
[2018-04-19 06:43] LABS: Eosinophils # 0.2 K/mcL (0.0-0.6); Eosinophils % 1.1 %; Hematocrit 31.7 % (35.3-44.9); Hemoglobin 9.4 g/dL (11.5-15.4); Lymphocytes # 1.2 K/mcL (0.6-4.6); Lymphocytes % 5.6 %; Mean Corpuscular HGB Conc 29.7 g/dL (31.6-35.5); Mean Corpuscular Volume 85.2 fL (83.0-100.0); Mean Platelet Volume 12.8 fL (9.4-12.4); Monocytes # 1.1 K/mcL (0.0-1.3); Monocytes % 4.9 %; Nucleated Red Blood Cells 4.3 /100 WBC (0); Platelet Count 224 K/mcL (140-400); Red Blood Count 3.72 M/mcL (3.82-4.97); Red Cell Distribution Width 22.5 % (11.5-14.5); Segmented Neutrophils % 86.6 %
[2018-04-19 06:52] LABS: INR 1.2; Prothrombin Time 13.2 Seconds (9.4-12.1)
[2018-04-19 06:54] LABS: Albumin 2.4 g/dL (3.5-5.7); Albumin/Globulin Ratio 0.8 (1.1-2.2); Bilirubin,Direct 0.2 mg/dL (0.0-0.2); Bilirubin,Indirect 0.3 mg/dL (0.0-1.2); Bilirubin,Total 0.5 mg/dL (0.3-1.0); Calcium 8.7 mg/dL (8.6-10.3); Globulin 2.9 g/dL (2.4-3.5); Magnesium 1.7 mg/dL (1.6-2.6); Phosphorous 3.3 mg/dL (2.7-4.5); Potassium 3.6 mEq/L (3.5-5.1); Total Protein 5.3 g/dL (6.4-8.9)
[2018-04-19 07:07] LABS: Hypochromasia Present (Not Present)
[2018-04-19 07:08] LABS: Anisocytosis 1+ (Not Present); Target Cells 1+ (Not Present)
[2018-04-19 07:09] LABS: Platelet Estimate Normal (Normal)
[2018-04-19] MEDS: Aspirin 81 MG TAB.CHEW PO SCH (08:41)
[2018-04-19] MEDS: Gabapentin 100 MG CAPSULE PO SCH ×3 (08:41→21:11)
[2018-04-19] MEDS: Magnesium Oxide 400 MG TABLET PO SCH (08:41)
[2018-04-19] MEDS: Sucralfate 1 GM TABLET PO SCH ×3 (08:42→16:51)
[2018-04-19] MEDS: Metoprolol 100 MG TABLET PO SCH ×2 (08:42→21:11)
[2018-04-19] MEDS: Lactobacillus 1 EACH CAP.SPRINK PO SCH ×2 (08:42→21:11)
[2018-04-19] MEDS: predniSONE 20 MG TABLET PO SCH (08:42)
[2018-04-19] MEDS: Vancomycin Oral Soln 125 MG/2.5 ML UDC PO SCH ×4 (08:43→21:12)
--- NOTE | 2018-04-19 10:26 | Infectious Disease Progress No ---
Date of Encounter: 04/19/18 Time of Encounter: 10:10 - Assessment and Plan (1) Sepsis Current Visit: No Status: Acute Progressed to septic shock requiring vasopressors with end organ damage. Likely secondary to pneumonia and Hepatitis A. WBC trending down. Vasopressors off. Hypothermia has resolved. Blood cultures obtained 03/25/18 are negative 2 sets. Repeat blood cultures drawn 04/11/18 are negative x 2 sets. Qualifiers: Sepsis type: sepsis due to unspecified organism Qualified Code(s): A41.9 - Sepsis, unspecified organism (2) Pneumonia Current Visit: Yes Status: Acute Location: Multifocal, greatest in the left lower lobe. Causative organism: Unclear. No evidence of aspiration noted on exam. Respiratory infectious panel was negative. Strep pneumococcal and legionella urinary antigens were negative. The patient has been able to provide us with 2 sputum cultures that are both negative. CT chest 04/08/18 showed improvement, but CT abdomen and pelvis 04/11/18 showed persistent LLL pneumonia. Completed 12 days of Zosyn and 6 days of Vanc. About underlying pneumonia cannot be excluded. The radiologist interpreted as worsening since previous exam. Clinically, patient appears to have improved. She is requiring less oxygen and is more alert. CT of the chest completed 04/18/18 showed increasing multifocal airspace disease suggesting pneumonia. Continue Zosyn 3.375 grams IV Q8H. (day 8) Continue Vancomycin IV. Pharmacy to dose. Goal trough ~15. (day 8) Duration of treatment depends on the clinical picture. Monitor renal function and for drug toxicity and dose-adjust antibiotics. Qualifiers: Pneumonia type: due to unspecified organism Laterality: left Lung location: lower lobe of lung Qualified Code(s): J18.1 - Lobar pneumonia, unspecified organism (3) C. difficile colitis Current Visit: Yes Status: Acute Severe. Clinically, the patient's stools are more formed, but she is still stooling several times per day. Repeat CT of the abdomen and pelvis showed findings consistent with ileus and gastroenteritis on 04/08/[address] of the abdomen and pelvis 04/11/18 did not show any bowel thickening or toxic megacolon, but radiologist reports concern for ischemic bowel due to severe calcification of the mesenteric circulation. Status post colonoscopy 04/12/18 that was negative for pseudomembranous or toxic megacolon. IV Flagyl stopped by the primary team. Continue Vancomycin 125mg PO QID. (day 23). Duration of treatment depends on the clinical picture. (4) Abdominal pain Current Visit: Yes Status: Resolved Secondary to C diff colitis and gastroenteritis and Hepatitis A. GI consulted. Appreciate recommendations. LFTs this morning markedly elevated and lactic acid 9. CT abdomen and pelvis on 04/03/2018: Cholelithiasis, small amount of gas within the bladder. Decreased small bowel distention with small bowel wall thickening in the left upper quadrant; no toxic megacolon. Repeat CT of the abdomen and pelvis 04/11/18 showed findings concerning for ischemic bowel. Status post colonoscopy 04/12/15 that was negative for pseudomembranous colitis or toxic megacolon. Resolved. Qualifiers: Abdominal location: generalized Qualified Code(s): R10.84 - Generalized abdominal pain (5) Rectal bleeding Current Visit: Yes Status: Resolved Patient started having bloody stools overnight. Etiology unclear. Not sure that it is from the C. diff since her stools are formed. Status post colonoscopy 04/12/18 that was negative for bleeding. Appears resolved. Management and transfusion parameters per the primary team. (6) Elevated transaminase level Current Visit: Yes Status: Acute Likely secondary to Hepatitis A vs. shock liver. Trending down. Continue supportive care. (7) Lactic acidosis Current Visit: Yes Status: Resolved Likely secondary to sepsis. Improved. (8) Acute kidney injury Current Visit: Yes Status: Acute Etiology unclear. Serum creatinine trending up appears to have plateaued today. Nephrology consulted and following. Continue to trend. CRRT started 04/12/18, discontinued 04/15/18. Possible intermittent HD. Await recommendations from nephrology. (9) Hepatitis A Current Visit: Yes Status: Acute Hepatitis A antibody positive. Likely contributing to the elevated LFTs. Continue to trend LFTs and continue supportive care. Qualifiers: Hepatic coma status: without hepatic coma Qualified Code(s): B15.9 - Hepatitis A without hepatic coma - Subjective Interval history: Patient seen and examined. No acute events noted overnight. Patient states that overall she feels well. Denies shortness of breath or cough. Denies chest or abdominal pain. Denies fevers, chills, or rigors. Denies nausea, vomiting, or diarrhea. Per nursing documentation, two loose stools yesterday. Denies oral thrush. Currently on O2 via nasal cannula. Infect Dis PN-Objective Data - Labs CBC & Chem 7: 04/19/18 06:20 04/19/18 06:20 Labs: Laboratory Results - last 24 hr 04/12/18 04/18/18 04/18/18 04:33 07:35 11:25 WBC RBC Hgb 7.0 L Hct 24.4 L MCV MCH MCHC RDW Plt Count MPV Immature Gran % Seg Neutrophils % Lymphocytes % Monocytes % Eosinophils % Basophils % Neutrophils # Lymphocytes # Monocytes # Eosinophils # Basophils # Nucleated RBCs/100 WBC Platelet Estimate Immature Plt Fraction Hypochromasia Anisocytosis Target Cells PT INR Sodium Potassium Chloride Carbon Dioxide BUN Creatinine Est GFR ( Amer) Est GFR (Non-Af Amer) BUN/Creatinine Ratio Glucose POC Glucose 139 H Calculated Osmolality Calcium Phosphorus Magnesium Total Bilirubin Direct Bilirubin Indirect Bilirubin AST ALT Alkaline Phosphatase Serum Total Protein Albumin Globulin Albumin/Globulin Ratio Vancomycin Trough Blood Type Antibody Screen Crossmatch See Detail 04/18/18 04/18/18 04/18/18 11:28 15:15 15:40 WBC RBC Hgb Hct MCV MCH MCHC RDW Plt Count MPV Immature Gran % Seg Neutrophils % Lymphocytes % Monocytes % Eosinophils % Basophils % Neutrophils # Lymphocytes # Monocytes # Eosinophils # Basophils # Nucleated RBCs/100 WBC Platelet Estimate Immature Plt Fraction Hypochromasia Anisocytosis Target Cells PT INR Sodium Potassium Chloride Carbon Dioxide BUN Creatinine Est GFR ( Amer) Est GFR (Non-Af Amer) BUN/Creatinine Ratio Glucose POC Glucose 127 H 165 H Calculated Osmolality Calcium Phosphorus Magnesium Total Bilirubin Direct Bilirubin Indirect Bilirubin AST ALT Alkaline Phosphatase Serum Total Protein Albumin Globulin Albumin/Globulin Ratio Vancomycin Trough Blood Type O POSITIVE Antibody Screen NEGATIVE Crossmatch See Detail 04/18/18 04/19/18 04/19/18 21:33 06:20 06:20 WBC 21.9 H RBC 3.72 L Hgb 9.4 L D Hct 31.7 L MCV 85.2 MCH 25.3 L MCHC 29.7 L RDW 22.5 H Plt Count 224 MPV 12.8 H Immature Gran % 1.6 Seg Neutrophils % 86.6 Lymphocytes % 5.6 Monocytes % 4.9 Eosinophils % 1.1 Basophils % 0.2 Neutrophils # 19.0 H Lymphocytes # 1.2 Monocytes # 1.1 Eosinophils # 0.2 Basophils # 0.0 Nucleated RBCs/100 WBC 4.3 H Platelet Estimate Normal Immature Plt Fraction 19.0 H Hypochromasia Present A Anisocytosis 1+ A Target Cells 1+ A PT 13.2 H INR 1.2 Sodium Potassium Chloride Carbon Dioxide BUN Creatinine Est GFR ( Amer) Est GFR (Non-Af Amer) BUN/Creatinine Ratio Glucose POC Glucose 212 H Calculated Osmolality Calcium Phosphorus Magnesium Total Bilirubin Direct Bilirubin Indirect Bilirubin AST ALT Alkaline Phosphatase Serum Total Protein Albumin Globulin Albumin/Globulin Ratio Vancomycin Trough Blood Type Antibody Screen Crossmatch 04/19/18 04/19/18 06:20 07:46 WBC RBC Hgb Hct MCV MCH MCHC RDW Plt Count MPV Immature Gran % Seg Neutrophils % Lymphocytes % Monocytes % Eosinophils % Basophils % Neutrophils # Lymphocytes # Monocytes # Eosinophils # Basophils # Nucleated RBCs/100 WBC Platelet Estimate Immature Plt Fraction Hypochromasia Anisocytosis Target Cells PT INR Sodium 144 Potassium 3.6 Chloride 110 H Carbon Dioxide 25 BUN 35 H Creatinine 1.91 H Est GFR ( Amer) 32 L Est GFR (Non-Af Amer) 26 L BUN/Creatinine Ratio 18 Glucose 104 POC Glucose 116 H Calculated Osmolality 306 H Calcium 8.7 Phosphorus 3.3 Magnesium 1.7 Total Bilirubin 0.5 Direct Bilirubin 0.2 Indirect Bilirubin 0.3 AST 24 ALT 95 H Alkaline Phosphatase 202 H Serum Total Protein 5.3 L Albumin 2.4 L Globulin 2.9 Albumin/Globulin Ratio 0.8 L Vancomycin Trough 19 H Blood Type Antibody Screen Crossmatch Cultures: Cultures 04/11/18 11:55 Blood Culture - Final Peripheral Venipuncture No growth. Final report. 04/11/18 11:53 Blood Culture - Final Peripheral Venipuncture No growth. Final report. 04/05/18 13:38 Sputum Culture - Final Sputum 04/05/18 16:38 Sputum Culture - Final Sputum 03/27/18 04:15 Legionella Antigen - Final Urine,[place] Streptococcus pneumoniae Antigen (M - Final Serology 04/17/18 04/12/18 04/11/18 Range/Units 03:50 17:14 20:37 Urine Color Dark Yellow (Yellow) Urine Clarity Hazy A (Clear) Urine pH 5.0 (5.0-8.0) pH Units Ur Specific Lily 1.018 (1.010-1.025) Urine Protein Trace (Neg-Trace) mg/dL Urine Glucose (UA) Normal (Normal) mg/dL Urine Ketones Negative (Negative) mg/dL Urine Blood Negative (Negative) Urine Nitrite Negative (Negative) Urine Bilirubin Negative (Negative) Urine Urobilinogen Normal (Normal) mg/dL Ur Leukocyte Esterase Small H (Negative) Urine Microscopic RBC (0-3) per hpf Urine Microscopic WBC 15-30 H (0-3) per hpf Ur Squamous Epith Cells Many H (None-Few) per lpf Urine Bacteria Many H (None-Few) per hpf Hyaline Casts Few (None-Few) per lpf Urine Yeast Many H Ur Culture Indicated? NO. A (NO) Nasal Screen MRSA (PCR) (Negative) Stl C. cayetanensis PCR (Not detect) Stool Rotavirus A PCR (Not detect) Stl Adenov F 40/41 PCR (Not detect) Stool Astrovirus (PCR) (Not detect) Stool Campylobacter PCR (Not detect) Stl C. diff Tox B Gene (Negative) Stl C. diff Tox A/B PCR (Not detect) Stool Cryptosporidium PCR (Not detect) Stl Sh Tox Pr E STEC PCR (Not detect) Stool E coli O157 PCR (Not detect) Stl Enterotoxigenic E PCR (Not detect) Stool EPEC (PCR) (Not detect) Stool EAEC (PCR) (Not detect) Stl E. histolytica PCR (Not detect) Stool Giardia Lamblia PCR (Not detect) Stool Salmonella PCR (Not detect) Stool Sapovirus (PCR) (Not detect) Stl P. shigelloides PCR (Not detect) Stl Shigella/EIEC PCR (Not detect) St Y.enterocolitica PCR (Not detect) Stool Vibrio (PCR) (Not detect) Stl Vibrio cholerae PCR (Not detect) Stl Norovirus GI/GII PCR (Not detect) Stl GI Panel (PCR) Com Chlamy pneumoniae PCR (Not Detect) Adenovirus (PCR) (Not Detect) B. pertussis DNA (PCR) (Not Detect) B.parapertussis DNA PCR (Not Detect) Coronavirus OC43 (PCR) (Not Detect) Coronavirus HKU1 (PCR) (Not Detect) Coronavirus 229E (PCR) (Not Detect) Coronavirus NL63 (PCR) (Not Detect) Hepatitis A IgM Ab Nonreactive (Nonreactive) Hepatitis A Ab Total POSITIVE A (Negative) Hep Bs Antigen Nonreactive (Nonreactive) Hep B Core IgM Ab Nonreactive (Nonreactive) Hepatitis C Ab Screen Nonreactive (Nonreactive) Human Metapneumovir PCR (Not Detect) Influenza A (H1) PCR (Not Detect) Influ A (H1N1/09) PCR (Not Detect) Influenza A (H3) PCR (Not Detect) Influenza A Untype (PCR) (Not Detect) Influenza Type B (PCR) (Not Detect) Mycoplasma pneumon IgG (<=0.09) U/L Mycoplasma pneumon IgM (<=0.76) U/L M.pneumoniae DNA (PCR) (Not Detect) Parainfluenza 1 (PCR) (Not Detect) Parainfluenza 2 (PCR) (Not Detect) Parainfluenza 3 (PCR) (Not Detect) Parainfluenza 4 (PCR) (Not Detect) RSV (PCR) (Not Detect) Entero/Rhino (PCR) (Not Detect) 04/05/18 04/05/18 04/05/18 Range/Units 12:12 09:20 09:20 Urine Color (Yellow) Urine Clarity (Clear) Urine pH (5.0-8.0) pH Units Ur Specific Lily (1.010-1.025) Urine Protein (Neg-Trace) mg/dL Urine Glucose (UA) (Normal) mg/dL Urine Ketones (Negative) mg/dL Urine Blood (Negative) Urine Nitrite (Negative) Urine Bilirubin (Negative) Urine Urobilinogen (Normal) mg/dL Ur Leukocyte Esterase (Negative) Urine Microscopic RBC (0-3) per hpf Urine Microscopic WBC (0-3) per hpf Ur Squamous Epith Cells (None-Few) per lpf Urine Bacteria (None-Few) per hpf Hyaline Casts (None-Few) per lpf Urine Yeast Ur Culture Indicated? (NO) Nasal Screen MRSA (PCR) Negative (Negative) Stl C. cayetanensis PCR (Not detect) Stool Rotavirus A PCR (Not detect) Stl Adenov F 40/41 PCR (Not detect) Stool Astrovirus (PCR) (Not detect) Stool Campylobacter PCR (Not detect) Stl C. diff Tox B Gene (Negative) Stl C. diff Tox A/B PCR (Not detect) Stool Cryptosporidium PCR (Not detect) Stl Sh Tox Pr E STEC PCR (Not detect) Stool E coli O157 PCR (Not detect) Stl Enterotoxigenic E PCR (Not detect) Stool EPEC (PCR) (Not detect) Stool EAEC (PCR) (Not detect) Stl E. histolytica PCR (Not detect) Stool Giardia Lamblia PCR (Not detect) Stool Salmonella PCR (Not detect) Stool Sapovirus (PCR) (Not detect) Stl P. shigelloides PCR (Not detect) Stl Shigella/EIEC PCR (Not detect) St Y.enterocolitica PCR (Not detect) Stool Vibrio (PCR) (Not detect) Stl Vibrio cholerae PCR (Not detect) Stl Norovirus GI/GII PCR (Not detect) Stl GI Panel (PCR) Com Chlamy pneumoniae PCR Not Detected (Not Detect) Adenovirus (PCR) Not Detected (Not Detect) B. pertussis DNA (PCR) Not Detected (Not Detect) B.parapertussis DNA PCR Not Detected (Not Detect) Coronavirus OC43 (PCR) Not Detected (Not Detect) Coronavirus HKU1 (PCR) Not Detected (Not Detect) Coronavirus 229E (PCR) Not Detected (Not Detect) Coronavirus NL63 (PCR) Not Detected (Not Detect) Hepatitis A IgM Ab (Nonreactive) Hepatitis A Ab Total (Negative) Hep Bs Antigen (Nonreactive) Hep B Core IgM Ab (Nonreactive) Hepatitis C Ab Screen (Nonreactive) Human Metapneumovir PCR Not Detected (Not Detect) Influenza A (H1) PCR Not Detected (Not Detect) Influ A (H1N1/09) PCR Not Detected (Not Detect) Influenza A (H3) PCR Not Detected (Not Detect) Influenza A Untype (PCR) Not Detected (Not Detect) Influenza Type B (PCR) Not Detected (Not Detect) Mycoplasma pneumon IgG 0.48 H (<=0.09) U/L Mycoplasma pneumon IgM 0.13 (<=0.76) U/L M.pneumoniae DNA (PCR) Not Detected (Not Detect) Parainfluenza 1 (PCR) Not Detected (Not Detect) Parainfluenza 2 (PCR) Not Detected (Not Detect) Parainfluenza 3 (PCR) Not Detected (Not Detect) Parainfluenza 4 (PCR) Not Detected (Not Detect) RSV (PCR) Not Detected (Not Detect) Entero/Rhino (PCR) Not Detected (Not Detect) 03/29/18 03/27/18 03/26/18 Range/Units 08:40 04:15 20:10 Urine Color Yellow (Yellow) Urine Clarity Clear (Clear) Urine pH 5.5 (5.0-8.0) pH Units Ur Specific Lily 1.023 (1.010-1.025) Urine Protein Negative (Neg-Trace) mg/dL Urine Glucose (UA) Normal (Normal) mg/dL Urine Ketones Negative (Negative) mg/dL Urine Blood Trace H (Negative) Urine Nitrite Negative (Negative) Urine Bilirubin Negative (Negative) Urine Urobilinogen Normal (Normal) mg/dL Ur Leukocyte Esterase Small H (Negative) Urine Microscopic RBC 3-5 H (0-3) per hpf Urine Microscopic WBC 5-15 H (0-3) per hpf Ur Squamous Epith Cells Many H (None-Few) per lpf Urine Bacteria None Seen (None-Few) per hpf Hyaline Casts Few (None-Few) per lpf Urine Yeast Test Not Performed Ur Culture Indicated? NO. A (NO) Nasal Screen MRSA (PCR) (Negative) Stl C. cayetanensis PCR (Not detect) Stool Rotavirus A PCR (Not detect) Stl Adenov F 40/41 PCR (Not detect) Stool Astrovirus (PCR) (Not detect) Stool Campylobacter PCR (Not detect) Stl C. diff Tox B Gene Positive A (Negative) Stl C. diff Tox A/B PCR (Not detect) Stool Cryptosporidium PCR (Not detect) Stl Sh Tox Pr E STEC PCR (Not detect) Stool E coli O157 PCR (Not detect) Stl Enterotoxigenic E PCR (Not detect) Stool EPEC (PCR) (Not detect) Stool EAEC (PCR) (Not detect) Stl E. histolytica PCR (Not detect) Stool Giardia Lamblia PCR (Not detect) Stool Salmonella PCR (Not detect) Stool Sapovirus (PCR) (Not detect) Stl P. shigelloides PCR (Not detect) Stl Shigella/EIEC PCR (Not detect) St Y.enterocolitica PCR (Not detect) Stool Vibrio (PCR) (Not detect) Stl Vibrio cholerae PCR (Not detect) Stl Norovirus GI/GII PCR (Not detect) Stl GI Panel (PCR) Com Chlamy pneumoniae PCR (Not Detect) Adenovirus (PCR) (Not Detect) B. pertussis DNA (PCR) (Not Detect) B.parapertussis DNA PCR (Not Detect) Coronavirus OC43 (PCR) (Not Detect) Coronavirus HKU1 (PCR) (Not Detect) Coronavirus 229E (PCR) (Not Detect) Coronavirus NL63 (PCR) (Not Detect) Hepatitis A IgM Ab (Nonreactive) Hepatitis A Ab Total (Negative) Hep Bs Antigen (Nonreactive) Hep B Core IgM Ab (Nonreactive) Hepatitis C Ab Screen (Nonreactive) Human Metapneumovir PCR (Not Detect) Influenza A (H1) PCR (Not Detect) Influ A (H1N1/09) PCR (Not Detect) Influenza A (H3) PCR (Not Detect) Influenza A Untype (PCR) (Not Detect) Influenza Type B (PCR) (Not Detect) Mycoplasma pneumon IgG 0.30 H (<=0.09) U/L Mycoplasma pneumon IgM 0.06 (<=0.76) U/L M.pneumoniae DNA (PCR) (Not Detect) Parainfluenza 1 (PCR) (Not Detect) Parainfluenza 2 (PCR) (Not Detect) Parainfluenza 3 (PCR) (Not Detect) Parainfluenza 4 (PCR) (Not Detect) RSV (PCR) (Not Detect) Entero/Rhino (PCR) (Not Detect) 03/26/18 Range/Units 20:10 Urine Color (Yellow) Urine Clarity (Clear) Urine pH (5.0-8.0) pH Units Ur Specific Lily (1.010-1.025) Urine Protein (Neg-Trace) mg/dL Urine Glucose (UA) (Normal) mg/dL Urine Ketones (Negative) mg/dL Urine Blood (Negative) Urine Nitrite (Negative) Urine Bilirubin (Negative) Urine Urobilinogen (Normal) mg/dL Ur Leukocyte Esterase (Negative) Urine Microscopic RBC (0-3) per hpf Urine Microscopic WBC (0-3) per hpf Ur Squamous Epith Cells (None-Few) per lpf Urine Bacteria (None-Few) per hpf Hyaline Casts (None-Few) per lpf Urine Yeast Ur Culture Indicated? (NO) Nasal Screen MRSA (PCR) (Negative) Stl C. cayetanensis PCR Not detected (Not detect) Stool Rotavirus A PCR Not detected (Not detect) Stl Adenov F 40/41 PCR Not detected (Not detect) Stool Astrovirus (PCR) Not detected (Not detect) Stool Campylobacter PCR Not detected (Not detect) Stl C. diff Tox B Gene (Negative) Stl C. diff Tox A/B PCR See reflex test A (Not detect) Stool Cryptosporidium PCR Not detected (Not detect) Stl Sh Tox Pr E STEC PCR Not detected (Not detect) Stool E coli O157 PCR Not detected (Not detect) Stl Enterotoxigenic E PCR Not detected (Not detect) Stool EPEC (PCR) Not detected (Not detect) Stool EAEC (PCR) Not detected (Not detect) Stl E. histolytica PCR Not detected (Not detect) Stool Giardia Lamblia PCR Not detected (Not detect) Stool Salmonella PCR Not detected (Not detect) Stool Sapovirus (PCR) Not detected (Not detect) Stl P. shigelloides PCR Not detected (Not detect) Stl Shigella/EIEC PCR Not detected (Not detect) St Y.enterocolitica PCR Not detected (Not detect) Stool Vibrio (PCR) Not detected (Not detect) Stl Vibrio cholerae PCR Not detected (Not detect) Stl Norovirus GI/GII PCR Not detected (Not detect) Stl GI Panel (PCR) Com See below Chlamy pneumoniae PCR (Not Detect) Adenovirus (PCR) (Not Detect) B. pertussis DNA (PCR) (Not Detect) B.parapertussis DNA PCR (Not Detect) Coronavirus OC43 (PCR) (Not Detect) Coronavirus HKU1 (PCR) (Not Detect) Coronavirus 229E (PCR) (Not Detect) Coronavirus NL63 (PCR) (Not Detect) Hepatitis A IgM Ab (Nonreactive) Hepatitis A Ab Total (Negative) Hep Bs Antigen (Nonreactive) Hep B Core IgM Ab (Nonreactive) Hepatitis C Ab Screen (Nonreactive) Human Metapneumovir PCR (Not Detect) Influenza A (H1) PCR (Not Detect) Influ A (H1N1/09) PCR (Not Detect) Influenza A (H3) PCR (Not Detect) Influenza A Untype (PCR) (Not Detect) Influenza Type B (PCR) (Not Detect) Mycoplasma pneumon IgG (<=0.09) U/L Mycoplasma pneumon IgM (<=0.76) U/L M.pneumoniae DNA (PCR) (Not Detect) Parainfluenza 1 (PCR) (Not Detect) Parainfluenza 2 (PCR) (Not Detect) Parainfluenza 3 (PCR) (Not Detect) Parainfluenza 4 (PCR) (Not Detect) RSV (PCR) (Not Detect) Entero/Rhino (PCR) (Not Detect) - Impressions Impressions Chest CT 04/18/18 21:00 IMPRESSION: Increasing multifocal airspace disease suggesting pneumonia. Increasing mediastinal nodes, likely reactive nodes. Small pleural effusions. D/ / Calvin Couch / Calvin Couch Interpreting Provider: Calvin Couch Exam - Constitutional Vitals: Temp Pulse Resp BP Pulse Ox 98.6 F 73 17 133/82 99 04/19/18 07:00 04/19/18 07:00 04/19/18 07:28 04/19/18 07:00 04/19/18 07:28 General appearance: average body habitus, cooperative, no acute distress - Head Head exam: Present: atraumatic, normal inspection, normocephalic - Eye Eye exam: Present: EOMI, normal appearance, PERRL Pupils: Present: normal accommodation - ENT ENT exam: Present: mucous membranes moist - Neck Neck exam: Present: normal inspection - Respiratory Respiratory exam: Present: CTAB. Absent: rales, respiratory distress, rhonchi, wheezes - Cardiovascular Cardiovascular exam: Present: RRR, +S1, +S2 - GI/Abdominal GI/Abdominal exam: Present: normal bowel sounds, soft. Absent: distended, tenderness Additional comments: Chandra catheter noted to be draining clear yellow urine. - Extremities Exam Extremities exam: Present: normal inspection. Absent: joint swelling, pedal edema, tenderness - Neurological Exam Neurological exam: Present: alert, oriented X3. Absent: no focal deficits ( Paralysis noted to the RLE with diminished motor and sensation noted to the RUE. ) - Psychiatric Psychiatric exam: Present: normal affect, normal mood - Skin Skin exam: Present: dry, intact, normal color, warm Consult Discharge Plan - Plan Referrals: Kathy Acosta DO [Resident] - 04/26/18 10:00 am - Attending Attestation I examined this patient and my medical decision-making was reviewed with the Resident Physician. I agree with the documented findings, disposition and treatment plan as described except to the extent set forth below.
--- NOTE | 2018-04-19 11:08 | Nephrology Progress Note ---
Date of Encounter: 04/19/18 Time of Encounter: 09:30 - Assessment and Plan (1) Acute kidney injury Current Visit: Yes Status: Acute Stable renal function today, which is reassuring Will plan to remove the temporary HD catheter tomorrow assuming she remains stable Will continue IVF one more day. Discussed with the hospitalist. Thank you. (2) Elevated transaminase level Current Visit: Yes Status: Resolved Trending better/ resolved. (3) Anemia Current Visit: Yes Status: Suspected Goal Hgb is 10-11 Qualifiers: Anemia type: iron deficiency Iron deficiency anemia type: chronic blood loss Qualified Code(s): D50.0 - Iron deficiency anemia secondary to blood loss (chronic) (4) Acute and chronic respiratory failure with hypoxia Current Visit: Yes Status: Deleted (5) C. difficile colitis Current Visit: Yes Status: Acute As per primary (6) History of CVA (cerebrovascular accident) Current Visit: No Status: Chronic History of CVA and right hemiparesis at baseline. As per primary. Subjective Principal diagnosis: Sepsis Interval history: Pt was seen/examined earlier today. She did not affirm N/V/D or other major complaints. Objective - Vital Signs Vital signs: Vital Signs Temp Pulse Resp BP Pulse Ox 04/19/18 07:28 17 99 04/19/18 07:00 98.6 F 73 16 133/82 97 04/19/18 04:32 98.7 F 63 17 141/77 99 04/19/18 04:30 18 141/77 100 04/19/18 01:57 97.8 F 61 15 137/84 100 04/19/18 01:42 97.8 F 67 17 138/87 99 04/19/18 00:22 17 134/89 99 04/18/18 21:10 98.4 F 86 18 134/89 99 04/18/18 20:55 18 100 04/18/18 19:05 99.3 F 90 19 129/86 100 04/18/18 17:52 98.5 F 87 18 132/88 04/18/18 16:07 18 99 04/18/18 15:20 98.6 F 99 18 190/88 98 04/18/18 11:24 98.8 F 104 18 156/79 100 Intake and Output 04/18/18 04/19/18 04/19/18 23:59 07:59 15:59 Intake Total 460 / 460 1695 / 1695 240 / 240 Output Total 50 / 50 450 / 450 Balance 410 / 410 1695 / 1695 -210 / -210 Intake: IV Fluids 100 / 100 1100 / 1100 0.45% Sodium Chloride 1000 Ml 1000 / 1000 1000 Ml 1,000 ML @ 75 mls/hr IVC .[id number] [facility] Rx#:[id number] Zosyn 3.375 GM In 0.9 % Sodium 100 / 100 100 / 100 Chloride (Mini-Bag +) 100 ML @ 25 mls/hr IVPB Q8HR [facility] Rx#: [id number] Oral 360 / 360 240 / 240 Blood Product 0 / 0 595 / 595 Rbcs Leuko Poor As-1 Unit 270 / 270 [id number] Rbcs Leuko Poor As-3 2nd Unit 0 / 0 325 / 325 [id number] Output: Stool 50 / 50 Catheter 450 / 450 Other: Meal Dinner Breakfast Percent of Meal Consumed 65% 50% Stool Consistency loose Stool Color Brown Green Blood Glucose* 212 116 - General Appearance Exam: General appearance: Present: well-developed, cachectic, chronically ill, fatigue , frail EENT: Present: ATNC, mucous membranes moist Neck: Present: supple Respiratory: Present: clear Cardiology: Present: no edema, normal S1 (tachycardia), normal S2 Dialysis Vascular Access: Vednous Catheter (Rt IJ temp HD catheter with Tegaderm and no surrounding erythema.) Gastrointestinal: Present: normoactive bowel sounds, no tenderness, no guarding Integumentary: Present: warm and dry Neurologic: Present: no asterixis Additional Comments: Right hemiparesis (chronic) Musculoskeletal: Present: no clubbing Psychiatric: Present: mood/affect appropriate, cooperative - Lab 04/23/18 03:40 04/23/18 03:40 Most recent lab results ABG pH 7.36 pH Units (7.32-7.45) 04/12/18 21:32 ABG pCO2 51 mmHg (35-45) H 04/12/18 21:32 ABG pO2 84 mmHg (85-104) L 04/12/18 21:32 ABG HCO3 29 mEq/L (21-27) H 04/12/18 21:32 ABG O2 Saturation 96 % (95-98) 04/12/18 21:32 Calcium 8.7 mg/dL (8.6-10.3) 04/19/18 06:20 Phosphorus 3.3 mg/dL (2.7-4.5) 04/19/18 06:20 Magnesium 1.7 mg/dL (1.6-2.6) 04/19/18 06:20 Consult Discharge Plan - Plan Referrals: Kathy Acosta DO [Resident] - 04/26/18 10:00 am
--- NOTE | 2018-04-19 13:56 | Internal Med Progress Note ---
<Bruce Delgado - Last Filed: 04/19/18 17:50> Hospitalist Progress Note - Encounter Date of Encounter: 04/19/18 - Exam Vitals: Temp Pulse Resp BP Pulse Ox 100.0 F H 76 18 140/86 97 04/19/18 15:49 04/19/18 15:49 04/19/18 15:53 04/19/18 15:49 04/19/18 15:53 - Assessment and Plan (1) COPD (chronic obstructive pulmonary disease) Current Visit: Yes Status: Acute (2) Pneumonia Current Visit: Yes Status: Acute (3) C. difficile colitis Current Visit: Yes Status: Acute (4) Chronic anemia Current Visit: Yes Status: Acute (5) Diabetes type 2, controlled Current Visit: Yes Status: Acute (6) Pulmonary nodule Current Visit: Yes Status: Acute (7) Hepatitis A Current Visit: Yes Status: Acute (8) Sepsis Current Visit: Yes Status: Resolved (9) DVT prophylaxis Current Visit: Yes Status: Acute (10) Shock liver Current Visit: Yes Status: Resolved (11) NIGEL (acute kidney injury) Current Visit: Yes Status: Acute (12) Hypertension Current Visit: Yes Status: Acute (13) Anemia Current Visit: Yes Status: Suspected - Time Spent with Patient Total time spent is greater than 50% in coordination of care (as documented) at patient's floor/unit and/or counseling patient: Internal Medicine: Result - Labs CBC & Chem 7: 04/19/18 06:20 04/19/18 06:20 Labs: Short CBC 04/19/18 Range/Units 06:20 WBC 21.9 H (4.3-11.1) K/mcL Hgb 9.4 L D (11.5-15.4) g/dL Hct 31.7 L (35.3-44.9) % Plt Count 224 (140-400) K/mcL Neutrophils # 19.0 H (1.6-8.9) K/mcL BMP 04/19/18 06:20 Sodium 144 Potassium 3.6 Chloride 110 H Carbon Dioxide 25 BUN 35 H Creatinine 1.91 H Glucose 104 Calcium 8.7 Liver Function 04/19/18 Range/Units 06:20 Total Bilirubin 0.5 (0.3-1.0) mg/dL Direct Bilirubin 0.2 (0.0-0.2) mg/dL AST 24 (13-39) Units/L ALT 95 H (7-52) Units/L Alkaline Phosphatase 202 H (34-104) Units/L Albumin 2.4 L (3.5-5.7) g/dL - ABG Interpretation ABG results: ABG ABG pH 7.36 pH Units (7.32-7.45) 04/12/18 21:32 ABG pCO2 51 mmHg (35-45) H 04/12/18 21:32 ABG pO2 84 mmHg (85-104) L 04/12/18 21:32 ABG O2 Saturation 96 % (95-98) 04/12/18 21:32 PT/INR, D-dimer PT 13.2 Seconds (9.4-12.1) H 04/19/18 06:20 - Impressions Impressions Chest CT 04/18/18 21:00 IMPRESSION: Increasing multifocal airspace disease suggesting pneumonia. Increasing mediastinal nodes, likely reactive nodes. Small pleural effusions. D/ / Calvin Couch / Calvin Couch Interpreting Provider: Calvin Couch Consult Discharge Plan - Plan Referrals: Kathy Acosta DO [Resident] - 04/26/18 10:00 am - Attending Attestation I examined this patient and my medical decision-making was reviewed with the Resident Physician on 04/19/18. I agree with the documented findings, disposition and treatment plan as described except to the extent set forth below. Ms Lauren is currently admitted for hep A with liver failure and multiple other acute issues. She remains moderate to high risk due to potential for worsening clinical status. Ms Lauren is doing better overall. Her WBC is decreasing. She is breathing OK. No fever or chills. Has rectal tube for diarrhea. H/H better after transfusion yesterday. Exam alert Comfortable Mucus membranes dry Heart not tachy at this time. Lungs diminished Abd soft I/P 1. Hep A 2. C diff colitis Further diagnoses and plan as above. <Lucero Salas - Last Filed: 04/19/18 20:54> Hospitalist Progress Note - Encounter Date of Encounter: 04/19/18 Time of Encounter: 09:35 - Subjective Interval History: Ms. Lauren was examined at bedside this morning. She was laying in bed on nasal canula. She had no events overnight. Her blood pressure remained stable overnight. Today her hemoglobin was 9.4, s/p 2 units of transfusion yesterday. She had just finished her breakfast and was asking about discharge and said she feels great. She had no further episodes of emesis. She continues to have loose bowel movements and due to concern for developing sacral decubitus ulcer she has a rectal tube in place. She denied any abdominal pain, nausea, emesis, fever , chills or chest pain. - Exam Vitals: Temp Pulse Resp BP Pulse Ox 98.6 F 79 17 158/90 99 04/19/18 11:00 04/19/18 11:00 04/19/18 11:31 04/19/18 11:00 04/19/18 11:31 Exam: Constitutional: Alert, in no acute distress, on nasal canula HEENT: Normocephalic, atraumatic, moist mucus membranes Heart: Normal, regular rate and rhythm, no murmurs Lungs: lungs clear and equal bilaterally Abdomen: Soft, hypoactive bowel sounds, non tender Extremities: No edema of lower extremity or upper extremities, warm, nontender Skin: Skin warm and dry, no lesions, no rashes, no jaundice Psych: thought content congruent, appropriate affect Neurological: Alert and oriented x 3, right upper and lower extremities paralysis due to previous CVA - Assessment and Plan (1) COPD (chronic obstructive pulmonary disease) Current Visit: Yes Status: Acute Assessment and Plan: History of COPD, completed prednisone taper during her admission. She is not in acute exacerbation. She is coughing and having sputum production. Plan: -Continue with duoneb Q4h prn -Continue to wean O2 supplementation -Continue mucinex (2) Pneumonia Current Visit: Yes Status: Acute Assessment and Plan: CT chest on 04/03 showed multifocal PNA, greatest in the LLL. Patient had worsening left-sided infiltrates on 04/13. IV added vancomycin was added along with zosyn. She had V/Q mismatch in the ICU she remained stable. Repeat CT yesterday showed increasing multifocal airspace disease suggesting pneumonia and small pleural effusions. Plan: -Infectious disease and pulmonology consulted -Continue zosyn (day 8 since restarted, received 12 days previously) IV vancomycin per ID recommendations -Continue to Bipap at night -CBC in the morning -Chest xray shows ongoing bilateral bibasilar consolidation -Continue diet, nectar thickened (3) C. difficile colitis Current Visit: Yes Status: Acute Assessment and Plan: Diarrhea ongoing, hepatitis A IgM is negative so acute phase of hepatitis A is resolved. Continues to have poor oral intake. Treatment regimen according to infectious disease. She did not show any evidence of pseudomembranous colitis and toxic megacolon during sigmoidoscopy on 04/12. GI recommended cholestyramine with imodium yesterday. Plan: -ID recommends continuing oral vancomycin, day 23 -Continue to monitor stool for changes in consistency -Continue probiotics -Continue to monitor vitals and CBC (4) Chronic anemia Current Visit: Yes Status: Acute Assessment and Plan: Likely acute cause. Hemoglobin stable today at 9.4 after 2 units transfusion yesterday. Denies emesis or hematochezia. Plan: -Continue to monitor CBC -GI consulted, recommend outpatient EGD -Transfuse if below 7 (5) Diabetes type 2, controlled Current Visit: Yes Status: Acute Assessment and Plan: Her glucose today was 173 this morning and now she is eating a fair amount of food. Plan: Continue sliding scale Continue to monitor Will consider adding her long acting glucose depending on her dietary intake (6) Anemia Current Visit: Yes Status: Suspected Assessment and Plan: Her baseline hemoglobin is noted to be 10. At presentation it was 10.6. She has developed worsening renal function and the anemia could partially be attributed to that. Additionally, she has a sigmoidoscopy which did not show any evidence of blood. She could have bleeding ulcers. Plan: Continue PPI EGD outpatient per GI recommendation Transfuse if below 7 (7) Pulmonary nodule Current Visit: Yes Status: Acute Assessment and Plan: CT of the chest noted a small lobulated nodule on the right upper lung lobe posteriorly Plan: Need to be followed to resolution after pneumonia resolves outpatient (8) Hepatitis A Current Visit: Yes Status: Acute Assessment and Plan: Tested positive on 04/12. Because of the long incubation period of hepatis A she may have had hepatitis A prior to admission but liver enzymes worsened on 04/12. She had Hep A antibody positive on 04/12 and repeat Hep A IgM was negative on . (9) Sepsis Current Visit: Yes Status: Resolved Assessment and Plan: Resolved but continues to have . She progressed to septic shock on 04/12 and required vasopressors for one day. Her blood cultures remained negative. Likely source secondary to pneumonia and hepatitis A. Blood cultures negative from and negative 04/11. Plan: Continue pneumonia management, ID recommends continuing zosyn--day 8 total doses , received 12 days previously which was stopped for 2 days Continue IV vancomycin, per IDs recommendation, day 8 Continue monitoring vitals Repeat chest xray on 04/[address] chest on 04/18 shows increased multifocal airspace disease suggesting pneumonia CBC in the morning (10) Shock liver Current Visit: Yes Status: Resolved Assessment and Plan: Resolved. Noted to have shock liver on 04/12. Her AST was 2981 on 04/12 and ALT were noted to be above 500. Statin was discontinued. She received n-acetylcysteine while in the ICU. Right upper ultrasound shwoed no evidence of hepatic venous thrombisis. Hepatitis A positive. Hepatitis B and C pending. AST 24, ALT 95 and Alk phos 202. Has no abdominal pain. Improving liver function and her hepatitis A IgM, Hepatitis B and C are nonreactive. Plan: Continue to monitor (11) NIGEL (acute kidney injury) Current Visit: Yes Status: Acute Assessment and Plan: Today creatinine is 1.93 and yesterday was 1.91. Had an NIGEL on 04/12, likely due to septic shock. Her output today is 1275. Plan: Per nephrology recommendation for hemodialysis Continue strict I/Os Continue to dose medications renally (12) Hypertension Current Visit: Yes Status: Acute Assessment and Plan: History of hypertension. She is on metoprolol 100 mg BID. Her blood pressure was much better the past a few days but has become elevated again yesterday. Tachycardia improved after restarting her home metoprolol and transfusing 2 units of blood. Plan: Restarted home metoprolol dosage Continue low maintenance fluid Will consider adding home furosemide tomorrow if her blood pressure remains high (13) DVT prophylaxis Current Visit: Yes Status: Acute Assessment and Plan: SCDs - Time Spent with Patient Total time spent is greater than 50% in coordination of care (as documented) at patient's floor/unit and/or counseling patient: less than 15 minutes Internal Medicine: Result - Labs CBC & Chem 7: 04/19/18 06:20 04/19/18 06:20 Labs: Short CBC 04/19/18 Range/Units 06:20 WBC 21.9 H (4.3-11.1) K/mcL Hgb 9.4 L D (11.5-15.4) g/dL Hct 31.7 L (35.3-44.9) % Plt Count 224 (140-400) K/mcL Neutrophils # 19.0 H (1.6-8.9) K/mcL BMP 04/19/18 06:20 Sodium 144 Potassium 3.6 Chloride 110 H Carbon Dioxide 25 BUN 35 H Creatinine 1.91 H Glucose 104 Calcium 8.7 Liver Function 04/19/18 Range/Units 06:20 Total Bilirubin 0.5 (0.3-1.0) mg/dL Direct Bilirubin 0.2 (0.0-0.2) mg/dL AST 24 (13-39) Units/L ALT 95 H (7-52) Units/L Alkaline Phosphatase 202 H (34-104) Units/L Albumin 2.4 L (3.5-5.7) g/dL - ABG Interpretation ABG results: ABG ABG pH 7.36 pH Units (7.32-7.45) 04/12/18 21:32 ABG pCO2 51 mmHg (35-45) H 04/12/18 21:32 ABG pO2 84 mmHg (85-104) L 04/12/18 21:32 ABG O2 Saturation 96 % (95-98) 04/12/18 21:32 PT/INR, D-dimer PT 13.2 Seconds (9.4-12.1) H 04/19/18 06:20 - Impressions Impressions Chest CT 04/18/18 21:00 IMPRESSION: Increasing multifocal airspace disease suggesting pneumonia. Increasing mediastinal nodes, likely reactive nodes. Small pleural effusions. D/ / Calvin Couch / Calvin Couch Interpreting Provider: Calvin Couch <Bruce Delgado - Last Filed: 04/19/18 17:50> (1) COPD (chronic obstructive pulmonary disease) Qualifiers: COPD type: chronic bronchitis Chronic bronchitis type: mucopurulent Qualified Code(s): J41.1 - Mucopurulent chronic bronchitis (2) Pneumonia Qualifiers: Pneumonia type: due to unspecified organism Laterality: bilateral Lung location: lower lobe of lung Qualified Code(s): J18.1 - Lobar pneumonia, unspecified organism (5) Diabetes type 2, controlled Qualifiers: Diabetes mellitus tank terminal gauger insulin use: with long-term use Diabetes mellitus complication status: with hyperglycemia Qualified Code(s): E11.65 - Type 2 diabetes mellitus with hyperglycemia; Z79.4 - tank terminal gauger (current) use of insulin (7) Hepatitis A Qualifiers: Hepatic coma status: without hepatic coma Qualified Code(s): B15.9 - Hepatitis A without hepatic coma (8) Sepsis Qualifiers: Sepsis type: sepsis due to unspecified organism Qualified Code(s): A41.9 - Sepsis, unspecified organism (12) Hypertension Qualifiers: Hypertension type: essential hypertension Qualified Code(s): I10 - Essential (primary) hypertension (13) Anemia Qualifiers: Anemia type: iron deficiency Iron deficiency anemia type: chronic blood loss Qualified Code(s): D50.0 - Iron deficiency anemia secondary to blood loss ( chronic) <Lucero Salas - Last Filed: 04/19/18 20:54> (1) COPD (chronic obstructive pulmonary disease) Qualifiers: COPD type: chronic bronchitis Chronic bronchitis type: mucopurulent Qualified Code(s): J41.1 - Mucopurulent chronic bronchitis (2) Pneumonia Qualifiers: Pneumonia type: due to unspecified organism Laterality: bilateral Lung location: lower lobe of lung Qualified Code(s): J18.1 - Lobar pneumonia, unspecified organism (5) Diabetes type 2, controlled Qualifiers: Diabetes mellitus tank terminal gauger insulin use: with tank terminal gauger use Diabetes mellitus complication status: with hyperglycemia Qualified Code(s): E11.65 - Type 2 diabetes mellitus with hyperglycemia; Z79.4 - skilled nursing (current) use of insulin (6) Anemia Qualifiers: Anemia type: iron deficiency Iron deficiency anemia type: chronic blood loss Qualified Code(s): D50.0 - Iron deficiency anemia secondary to blood loss ( chronic) (8) Hepatitis A Qualifiers: Hepatic coma status: without hepatic coma Qualified Code(s): B15.9 - Hepatitis A without hepatic coma (9) Sepsis Qualifiers: Sepsis type: sepsis due to unspecified organism Qualified Code(s): A41.9 - Sepsis, unspecified organism (12) Hypertension Qualifiers: Hypertension type: essential hypertension Qualified Code(s): I10 - Essential (primary) hypertension
[2018-04-19] MEDS: Vancomycin 500 MG in 0.9 % Sodium Chloride Mini Bag 100 ML IVPB SCH (19:29)
[2018-04-19] MEDS: traZODone 50 MG TABLET PO SCH (21:11)
[2018-04-20] MEDS: Ipratropium/Albuterol Neb 3 ML IH SCH ×7 (00:16→23:45)
[2018-04-20 04:51] LABS: Basophils % 0.2 %; Eosinophils # 0.1 K/mcL (0.0-0.6); Eosinophils % 0.3 %; Hemoglobin 9.1 g/dL (11.5-15.4); Immature Granulocytes % 1.8 % (0-4); Mean Corpuscular HGB Conc 30.3 g/dL (31.6-35.5); Mean Corpuscular Hemoglobin 25.3 pg (28.0-33.3); Mean Corpuscular Volume 83.3 fL (83.0-100.0); Mean Platelet Volume 13.4 fL (9.4-12.4); Monocytes # 0.9 K/mcL (0.0-1.3); Monocytes % 4.5 %; Neutrophils # 17.1 K/mcL (1.6-8.9); Nucleated Red Blood Cells 1.9 /100 WBC (0); Platelet Count 214 K/mcL (140-400); Red Cell Distribution Width 22.1 % (11.5-14.5); Segmented Neutrophils % 88.2 %
[2018-04-20 05:05] LABS: Potassium 3.3 mEq/L (3.5-5.1)
--- NOTE | 2018-04-20 07:52 | Internal Med Progress Note ---
Hospitalist Progress Note - Encounter Date of Encounter: 04/20/18 Time of Encounter: 08:30 - Subjective Interval History: Ms Lauren is currently admitted for acute hepatitis A and C diff colitis. She remains moderate to high risk due to potential for worsening clinical status. Ms Lauren is doing OK. She is having some intestinal gas. Eating breakfast. Feels she is breathing OK. No fever or chills. - Exam Vitals: Temp Pulse Resp BP Pulse Ox 98.6 F 74 18 190/87 98 04/20/18 07:30 04/20/18 07:30 04/20/18 07:30 04/20/18 07:30 04/20/18 07:30 Exam: General: Alert and oriented. Comfortable at this time. Skin: Normal color, no rash, no lesions. H: Normocephalic. EENT: EOMI, pupils equal. Mucus membranes moist. No lesion. Cardiovascular: Normal S1 & S2, no rubs, murmurs or gallops. No JVD. Pulse regular. Not tachycardic. Lungs: Decreased breath sounds bilaterally. No wheeze, rhonchi, or rales. Abdomen: Soft, non-tender, no rigidity. Normal bowel sounds. Slight distention from gas. Extremities: No deformity, no edema or tenderness, no joint swelling or clubbing. Neurological: Normal cognition and motor skills. Pulses: Carotid and radial pulses normal +2. Rest of the physical exam is non contributory - Assessment and Plan (1) Hypertension Current Visit: Yes Status: Acute Assessment and Plan: Remains elevated. Will adjust medications today. (2) C. difficile colitis Current Visit: Yes Status: Acute Assessment and Plan: Diarrhea appears to be improving. Continue current treatment with Vanc and Immodium and cholestyramine per GI. (3) Hepatitis A Current Visit: Yes Status: Acute Assessment and Plan: Currently is not an issue. (4) COPD (chronic obstructive pulmonary disease) Current Visit: Yes Status: Acute Assessment and Plan: History of COPD, completed prednisone taper during her admission. She is not in acute exacerbation. She is coughing and having sputum production. Plan: -Continue with duoneb and mucinex. Wean oxygen as tolerated. (5) Pneumonia Current Visit: Yes Status: Suspected Assessment and Plan: Recent CT showed increasing multifocal infiltrates though patient is clinically improving and WBC decreasing. Continues same abx as per ID recommendations. (6) Diabetes type 2, controlled Current Visit: Yes Status: Chronic Assessment and Plan: She is increasing her PO intake over last few days. Blood sugars are increasing some. Anticipate will need to add long acting insulin soon. (7) Anemia Current Visit: Yes Status: Suspected Assessment and Plan: Hemoglobin stable around 9 today. Continue to monitor. Further GI work up as outpatient. (8) Pulmonary nodule Current Visit: Yes Status: Acute (9) Sepsis Current Visit: Yes Status: Resolved (10) DVT prophylaxis Current Visit: Yes Status: Acute (11) Shock liver Current Visit: Yes Status: Resolved Assessment and Plan: Resolved. (12) NIGEL (acute kidney injury) Current Visit: Yes Status: Acute Assessment and Plan: Per nephrology. Dialysis catheter to be removed today. - Time Spent with Patient Total time spent is greater than 50% in coordination of care (as documented) at patient's floor/unit and/or counseling patient: Internal Medicine: Result - Labs CBC & Chem 7: 04/20/18 03:50 04/20/18 03:50 Labs: Short CBC 04/20/18 Range/Units 03:50 WBC 19.4 H (4.3-11.1) K/mcL Hgb 9.1 L (11.5-15.4) g/dL Hct 30.0 L (35.3-44.9) % Plt Count 214 (140-400) K/mcL Neutrophils # 17.1 H (1.6-8.9) K/mcL BMP 04/20/18 03:50 Sodium 141 Potassium 3.3 L Chloride 108 H Carbon Dioxide 24 BUN 37 H Creatinine 1.72 H Glucose 156 H Calcium 8.0 L - ABG Interpretation ABG results: ABG ABG pH 7.36 pH Units (7.32-7.45) 04/12/18 21:32 ABG pCO2 51 mmHg (35-45) H 04/12/18 21:32 ABG pO2 84 mmHg (85-104) L 04/12/18 21:32 ABG O2 Saturation 96 % (95-98) 04/12/18 21:32 PT/INR, D-dimer PT 13.2 Seconds (9.4-12.1) H 04/19/18 06:20 Consult Discharge Plan - Plan Referrals: Kathy Acosta DO [Resident] - 04/26/18 10:00 am (1) Hypertension Qualifiers: Hypertension type: essential hypertension Qualified Code(s): I10 - Essential (primary) hypertension (3) Hepatitis A Qualifiers: Hepatic coma status: without hepatic coma Qualified Code(s): B15.9 - Hepatitis A without hepatic coma (4) COPD (chronic obstructive pulmonary disease) Qualifiers: COPD type: chronic bronchitis Chronic bronchitis type: mucopurulent Qualified Code(s): J41.1 - Mucopurulent chronic bronchitis (5) Pneumonia Qualifiers: Pneumonia type: due to other aerobic Gram-negative bacteria Laterality: bilateral Lung location: lower lobe of lung Qualified Code(s): J15.6 - Pneumonia due to other Gram-negative bacteria (6) Diabetes type 2, controlled Qualifiers: Diabetes mellitus terminal operations manager insulin use: with half-way use Diabetes mellitus complication status: with hyperglycemia Qualified Code(s): E11.65 - Type 2 diabetes mellitus with hyperglycemia; Z79.4 - roasterman (current) use of insulin (7) Anemia Qualifiers: Anemia type: iron deficiency Iron deficiency anemia type: chronic blood loss Qualified Code(s): D50.0 - Iron deficiency anemia secondary to blood loss ( chronic) (9) Sepsis Qualifiers: Sepsis type: sepsis due to unspecified organism Qualified Code(s): A41.9 - Sepsis, unspecified organism
[2018-04-20] MEDS: Metoprolol 100 MG TABLET PO SCH ×2 (08:33→20:05)
[2018-04-20] MEDS: Gabapentin 100 MG CAPSULE PO SCH ×3 (08:33→20:06)
[2018-04-20] MEDS: Lactobacillus 1 EACH CAP.SPRINK PO SCH ×2 (08:34→20:06)
[2018-04-20] MEDS: predniSONE 20 MG TABLET PO SCH (08:34)
[2018-04-20] MEDS: Aspirin 81 MG TAB.CHEW PO SCH (08:34)
[2018-04-20] MEDS: Sucralfate 1 GM TABLET PO SCH ×3 (08:35→16:28)
[2018-04-20] MEDS: Magnesium Oxide 400 MG TABLET PO SCH (08:35)
[2018-04-20] MEDS: Vancomycin Oral Soln 125 MG/2.5 ML UDC PO SCH ×4 (08:35→20:03)
[2018-04-20] MEDS: Piperacillin/Tazobactam 3.375 GM in 0.9 % Sodium Chloride Mini Bag 100 ML IVPB SCH ×3 (08:36→23:50)
[2018-04-20] MEDS: Insulin LISPRO 300 UNITS/3 ML VIAL SQ SCH ×4 (08:42→20:08)
--- NOTE | 2018-04-20 09:01 | Nephrology Progress Note ---
Date of Encounter: 04/20/18 Time of Encounter: 11:00 - Assessment and Plan (1) Acute kidney injury Current Visit: Yes Status: Acute SCr now trending better and slightly hypokalemic (which could be multifactorial from volume expansion of the IVF and the diarrhea). I will stop the IVF, and have placed an order for the dialysis catheter to be removed as per standard safety protocol. I will be available tomorrow if needed, but please feel free to call or page me with questions. Otherwise my colleague Dr. Ruiz will be on-call start tomorrow. Thank you. (2) Elevated transaminase level Current Visit: Yes Status: Resolved (3) Anemia Current Visit: Yes Status: Suspected Qualifiers: Anemia type: iron deficiency Iron deficiency anemia type: chronic blood loss Qualified Code(s): D50.0 - Iron deficiency anemia secondary to blood loss (chronic) (4) Acute and chronic respiratory failure with hypoxia Current Visit: Yes Status: Deleted (5) C. difficile colitis Current Visit: Yes Status: Acute (6) History of CVA (cerebrovascular accident) Current Visit: No Status: Chronic Subjective Principal diagnosis: Sepsis Interval history: Pt was seen/examined, and she described feeling relatively better but that her floor RN said that the temporary HD catheter was not able to be removed. She did not affirm new N/V/D or other major complaints. Objective - Vital Signs Vital signs: Vital Signs Temp Pulse Resp BP Pulse Ox 04/20/18 08:06 18 98 04/20/18 07:30 98.6 F 74 18 190/87 98 04/20/18 04:17 19 98 04/20/18 03:26 99.1 F 76 18 170/76 96 04/20/18 00:18 18 97 04/19/18 23:55 99.4 F 77 18 189/85 98 04/19/18 20:28 20 98 04/19/18 19:46 99.2 F 74 18 183/77 98 04/19/18 15:53 18 97 04/19/18 15:49 100.0 F H 76 18 140/86 97 04/19/18 11:31 17 99 04/19/18 11:00 98.6 F 79 158/90 97 Intake and Output 04/19/18 04/20/18 04/20/18 23:59 07:59 15:59 Intake Total 1440 / 1440 100 / 100 Output Total 625 / 625 200 / 200 Balance 815 / 815 -100 / -100 Intake: IV Fluids 1200 / 1200 100 / 100 0.45% Sodium Chloride 1000 Ml 1000 / 1000 1000 Ml 1,000 ML @ 75 mls/hr IVC .[id number] KARL Rx#:[id number] Zosyn 3.375 GM In 0.9 % Sodium 100 / 100 100 / 100 Chloride (Mini-Bag +) 100 ML @ 25 mls/hr IVPB Q8HR KARL Rx#: [id number] Oral 240 / 240 Output: Catheter 625 / 625 200 / 200 Other: Meal Dinner Percent of Meal Consumed 10% Stool Size Small Small Stool Consistency liquid loose Stool Color Brown Brown # Bowel Movements 1 1 # Bowel Movement Diapers 1 1 Weight 62.3 kg Blood Glucose* 222 150 Patient Weight 04/20/18 23:59 Weight 62.3 kg - General Appearance Exam: General appearance: Present: well-developed, cachectic, chronically ill, fatigue , frail EENT: Present: ATNC, mucous membranes moist Neck: Present: supple Respiratory: Present: clear Cardiology: Present: no edema, normal S1 (tachycardia), normal S2 Dialysis Vascular Access: Venous Catheter remains in place but no erythema Gastrointestinal: Present: normoactive bowel sounds, no tenderness, no guarding Integumentary: Present: warm and dry Neurologic: Present: no asterixis Additional Comments: Right hemiparesis Musculoskeletal: Present: no clubbing Psychiatric: Present: mood/affect appropriate, cooperative - Lab 04/23/18 03:40 04/23/18 03:40 Most recent lab results ABG pH 7.36 pH Units (7.32-7.45) 04/12/18 21:32 ABG pCO2 51 mmHg (35-45) H 04/12/18 21:32 ABG pO2 84 mmHg (85-104) L 04/12/18 21:32 ABG HCO3 29 mEq/L (21-27) H 04/12/18 21:32 ABG O2 Saturation 96 % (95-98) 04/12/18 21:32 Calcium 8.0 mg/dL (8.6-10.3) L 04/20/18 03:50 Phosphorus 3.3 mg/dL (2.7-4.5) 04/19/18 06:20 Magnesium 1.7 mg/dL (1.6-2.6) 04/19/18 06:20 Consult Discharge Plan - Plan Referrals: Kathy Acosta DO [Resident] - 04/26/18 10:00 am
[2018-04-20] MEDS: Simethicone 80 MG TAB.CHEW PO PRN (10:26)
[2018-04-20] MEDS: traZODone 50 MG TABLET PO SCH (20:05)
[2018-04-20] MEDS: amLODIPine 5 MG TABLET PO SCH (20:06)
[2018-04-20] MEDS: Acetaminophen 325 MG TABLET PO PRN (20:10)
[2018-04-20] MEDS: Insulin DETEMIR 100 UNIT/ML X5UNITS SQ SCH (20:11)
[2018-04-20] MEDS: Beclomethasone 40mcg REDIHALER IH SCH (23:46)
[2018-04-21 04:23] LABS: Hematocrit 31.5 % (35.3-44.9); Hemoglobin 9.4 g/dL (11.5-15.4); Mean Corpuscular HGB Conc 29.8 g/dL (31.6-35.5); Mean Corpuscular Hemoglobin 25.3 pg (28.0-33.3); Mean Corpuscular Volume 84.7 fL (83.0-100.0); Platelet Count 208 K/mcL (140-400); Red Blood Count 3.72 M/mcL (3.82-4.97); Red Cell Distribution Width 22.4 % (11.5-14.5)
[2018-04-21 04:33] LABS: Calcium 8.3 mg/dL (8.6-10.3)
[2018-04-21] MEDS: Ipratropium/Albuterol Neb 3 ML IH SCH ×5 (04:40→20:39)
--- NOTE | 2018-04-21 07:49 | Internal Med Progress Note ---
Hospitalist Progress Note - Encounter Date of Encounter: 04/21/18 Time of Encounter: 12:00 - Subjective Interval History: Ms Lauren is currently admitted for acute hepatitis A and C diff colitis. She remains moderate to high risk due to potential for worsening clinical status. Ms Lauren feels OK. Still having a lot of abdominal gas. Burping and passing gas. No fever or chills. Tolerating diet. No CP or SOB. Says she is still having a little diarrhea. - Exam Vitals: Temp Pulse Resp BP Pulse Ox 98 F 69 16 178/78 96 04/21/18 03:17 04/21/18 03:17 04/21/18 04:40 04/21/18 03:17 04/21/18 04:40 Exam: General: Alert and oriented. Comfortable at this time. Eating sherbert Skin: Normal color, no rash, no lesions. H: Normocephalic. EENT: EOMI, pupils equal. Mucus membranes moist. No lesion. Cardiovascular: Normal S1 & S2, no murmurs or gallops. No JVD. Pulse regular. Not tachycardic. Lungs: Decreased breath sounds bilaterally. No wheeze, rhonchi, or rales. Abdomen: Soft. Slight distention still. Bowel sounds heard - ? higher pitched. Nontender. Extremities: No deformity, no edema or tenderness, no joint swelling or clubbing. OA present. Neurological: Normal cognition and motor skills. Pulses: Carotid and radial pulses normal +2. Rest of the physical exam is non contributory - Assessment and Plan (1) Abdominal distension (gaseous) Current Visit: Yes Status: Acute Assessment and Plan: Feels like she has a lot of gas. Will check KUB today. (2) Hypertension Current Visit: Yes Status: Acute Assessment and Plan: Remains elevated. Norvasc started yesterday. Will continue today and increase tomorrow if still elevated. (3) C. difficile colitis Current Visit: Yes Status: Acute Assessment and Plan: Diarrhea improving. Having a lot of intestinal gas - will decrease cholestyramine. Check KUB today. Continue current treatment with Vanc and Immodium and cholestyramine per GI. (4) Hepatitis A Current Visit: Yes Status: Acute Assessment and Plan: LFTs improving. Recheck tomorrow. (5) COPD (chronic obstructive pulmonary disease) Current Visit: Yes Status: Chronic Assessment and Plan: History of COPD, completed prednisone taper during her admission. She is not in acute exacerbation. She is coughing and having sputum production. Plan: -Continue with duoneb and mucinex. Wean oxygen as tolerated. (6) Pneumonia Current Visit: Yes Status: Suspected Assessment and Plan: Recent CT showed increasing multifocal infiltrates though patient is clinically improving and WBC has been decreasing. WBC same today. Continue current abx now and readdress tomorrow. (7) Diabetes type 2, controlled Current Visit: Yes Status: Chronic Assessment and Plan: Blood sugars better last 24 hours. Continue same insulin. (8) Anemia Current Visit: Yes Status: Suspected Assessment and Plan: Hemoglobin stable again today. Continue to monitor. Further GI work up as outpatient. (9) Pulmonary nodule Current Visit: Yes Status: Acute (10) Sepsis Current Visit: Yes Status: Resolved (11) DVT prophylaxis Current Visit: Yes Status: Acute Assessment and Plan: SCDs (12) Shock liver Current Visit: Yes Status: Resolved Assessment and Plan: Resolved. (13) NIGEL (acute kidney injury) Current Visit: Yes Status: Acute Assessment and Plan: Per nephrology. Dialysis catheter to be removed. - Time Spent with Patient Total time spent is greater than 50% in coordination of care (as documented) at patient's floor/unit and/or counseling patient: Internal Medicine: Result - Labs CBC & Chem 7: 04/21/18 03:45 04/21/18 03:45 Labs: Short CBC 04/21/18 Range/Units 03:45 WBC 19.0 H (4.3-11.1) K/mcL Hgb 9.4 L (11.5-15.4) g/dL Hct 31.5 L (35.3-44.9) % Plt Count 208 (140-400) K/mcL BMP 04/21/18 03:45 Sodium 144 Potassium 4.0 Chloride 111 H Carbon Dioxide 28 BUN 39 H Creatinine 1.63 H Glucose 82 Calcium 8.3 L - ABG Interpretation ABG results: ABG ABG pH 7.36 pH Units (7.32-7.45) 04/12/18 21:32 ABG pCO2 51 mmHg (35-45) H 04/12/18 21:32 ABG pO2 84 mmHg (85-104) L 04/12/18 21:32 ABG O2 Saturation 96 % (95-98) 04/12/18 21:32 PT/INR, D-dimer PT 13.2 Seconds (9.4-12.1) H 04/19/18 06:20 Consult Discharge Plan - Plan Referrals: Kathy Acosta DO [Resident] - 04/26/18 10:00 am (2) Hypertension Qualifiers: Hypertension type: essential hypertension Qualified Code(s): I10 - Essential (primary) hypertension (4) Hepatitis A Qualifiers: Hepatic coma status: without hepatic coma Qualified Code(s): B15.9 - Hepatitis A without hepatic coma (5) COPD (chronic obstructive pulmonary disease) Qualifiers: COPD type: chronic bronchitis Chronic bronchitis type: mucopurulent Qualified Code(s): J41.1 - Mucopurulent chronic bronchitis (6) Pneumonia Qualifiers: Pneumonia type: due to other aerobic Gram-negative bacteria Laterality: bilateral Lung location: lower lobe of lung Qualified Code(s): J15.6 - Pneumonia due to other Gram-negative bacteria (7) Diabetes type 2, controlled Qualifiers: Diabetes mellitus residential insulin use: with terminal block assembler use Diabetes mellitus complication status: with hyperglycemia Qualified Code(s): E11.65 - Type 2 diabetes mellitus with hyperglycemia; 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
[2018-04-21] MEDS ORDERED: Vancomycin 500 MG in 0.9 % Sodium Chloride Mini Bag 100 ML IVPB ONE (08:00)
[2018-04-21] MEDS: Sucralfate 1 GM TABLET PO SCH ×3 (09:10→15:59)
[2018-04-21] MEDS: Insulin LISPRO 300 UNITS/3 ML VIAL SQ SCH ×4 (09:10→21:33)
[2018-04-21] MEDS: Metoprolol 100 MG TABLET PO SCH ×2 (09:11→21:33)
[2018-04-21] MEDS: Aspirin 81 MG TAB.CHEW PO SCH (09:11)
[2018-04-21] MEDS: Gabapentin 100 MG CAPSULE PO SCH ×3 (09:11→21:33)
[2018-04-21] MEDS: predniSONE 20 MG TABLET PO SCH (09:11)
[2018-04-21] MEDS: Lactobacillus 1 EACH CAP.SPRINK PO SCH ×2 (09:11→21:33)
[2018-04-21] MEDS: amLODIPine 5 MG TABLET PO SCH (09:11)
[2018-04-21] MEDS: Magnesium Oxide 400 MG TABLET PO SCH (09:11)
[2018-04-21] MEDS: Vancomycin Oral Soln 125 MG/2.5 ML UDC PO SCH ×4 (09:12→21:32)
--- NOTE | 2018-04-21 09:59 | Event Note ---
Date of Encounter: 04/21/18 Time of Encounter: 09:57 Nephrology Update The pt's continuing to biochemically improve with documented lowering of the SCr. She is now off IVF and the temporary HD catheter has already been ordered to be removed. I will sign-off at this point, but please feel free to call or re-consult as needed. My colleague Dr. Stacy was the first manager field sales involved in this pleasant pt's care, so I would recommend outpt Nephrology follow up in about 3- 6 weeks after discharge with her and to have a BMP checked about 1 week after discharge. Continue to follow a renal protective strategy. Thank you.
[2018-04-21] MEDS: Piperacillin/Tazobactam 3.375 GM in 0.9 % Sodium Chloride Mini Bag 100 ML IVPB SCH ×2 (10:09→15:59)
[2018-04-21] MEDS: Simethicone 80 MG TAB.CHEW PO PRN ×3 (10:27→21:40)
[2018-04-21] MEDS: Beclomethasone 40mcg REDIHALER IH SCH ×2 (11:03→20:40)
[2018-04-21] MEDS: Acetaminophen 325 MG TABLET PO PRN (18:03)
[2018-04-21] MEDS: Insulin DETEMIR 100 UNIT/ML X5UNITS SQ SCH (21:32)
[2018-04-21] MEDS: traZODone 50 MG TABLET PO SCH (21:33)
[2018-04-22] MEDS: Piperacillin/Tazobactam 3.375 GM in 0.9 % Sodium Chloride Mini Bag 100 ML IVPB SCH ×4 (00:23→23:44)
[2018-04-22] MEDS: Ipratropium/Albuterol Neb 3 ML IH SCH ×7 (00:36→23:35)
[2018-04-22 05:13] LABS: Hemoglobin 9.1 g/dL (11.5-15.4); Mean Corpuscular Hemoglobin 25.3 pg (28.0-33.3); Mean Corpuscular Volume 84.4 fL (83.0-100.0)
[2018-04-22 05:15] LABS: Hematocrit 30.3 % (35.3-44.9); Immature Platelets 20.9 % (1.1-6.1); Platelet Count 181 K/mcL (140-400); Red Blood Count 3.59 M/mcL (3.82-4.97); Red Cell Distribution Width 22.5 % (11.5-14.5)
[2018-04-22 05:25] LABS: Calcium 7.9 mg/dL (8.6-10.3); Magnesium 1.3 mg/dL (1.6-2.6); Potassium 4.2 mEq/L (3.5-5.1)
[2018-04-22] MEDS: Insulin LISPRO 300 UNITS/3 ML VIAL SQ SCH ×4 (07:45→22:25)
[2018-04-22] MEDS: Beclomethasone 40mcg REDIHALER IH SCH ×2 (08:06→19:56)
[2018-04-22] MEDS: Lactobacillus 1 EACH CAP.SPRINK PO SCH ×2 (08:20→20:32)
[2018-04-22] MEDS: predniSONE 20 MG TABLET PO SCH (08:20)
[2018-04-22] MEDS: Gabapentin 100 MG CAPSULE PO SCH ×3 (08:20→20:33)
[2018-04-22] MEDS: Magnesium Oxide 400 MG TABLET PO SCH (08:21)
[2018-04-22] MEDS: amLODIPine 5 MG TABLET PO SCH (08:21)
[2018-04-22] MEDS: Aspirin 81 MG TAB.CHEW PO SCH (08:21)
[2018-04-22] MEDS: Sucralfate 1 GM TABLET PO SCH ×3 (08:21→18:53)
[2018-04-22] MEDS: Metoprolol 100 MG TABLET PO SCH ×2 (08:21→20:32)
[2018-04-22] MEDS: Vancomycin Oral Soln 125 MG/2.5 ML UDC PO SCH ×4 (08:25→23:44)
[2018-04-22] MEDS: Simethicone 80 MG TAB.CHEW PO PRN ×2 (08:30→15:35)
[2018-04-22] MEDS ORDERED: Aminoglycoside Consult 1 EACH MC ONE (11:56)
--- NOTE | 2018-04-22 13:52 | Pulmonology Progress Note ---
Date of Encounter: 04/22/18 Time of Encounter: 13:00 Assessment and Plan (1) Pneumonia Current Visit: Yes Status: Acute Patient had outpatient CT scan which was recently done in comparing with CT scan of April 08 looks like worsening airspace disease but looking at the CT abdomen which was done around April 11 where she decompensated into septic shock and multiorgan dysfunction syndrome with worsening left lower lobe infiltrates which was seen in the CT scan so the current CT scan assess sequelae of the worsened left-sided airspace disease which happened around April [address] scan shows no evidence of mucus plugging all the major lobar airways are open there is atelectasis with the airbronchogrmas on both bases. This is mostly multifactorial with pneumonia and patient being lying down lead to the atelectasis there is no evidence of mucus plugging which is causing this volume loss the patient clinically getting better and radiological changes lag behind i do not think bronchoscopy will help in the background of her clinical picture is improving . She needs to sit in the chair with incentive spirometry and flutter valve every 6 hours if she does not do that and keep lying on the bed and this atelectasis bibasilar will not improve. If her V/Q mismatch worsens will consider bronchoscopy at that point I spoke my recommendation to the primary team will be happy to discuss with infectious disease team. Continue diuresis as tolerated and she is 9 L positive. Qualifiers: Pneumonia type: due to unspecified organism Laterality: bilateral Lung location: lower lobe of lung Qualified Code(s): J18.1 - Lobar pneumonia, unspecified organism (2) C. difficile colitis Current Visit: Yes Status: Acute Management according to infectious disease. (3) COPD (chronic obstructive pulmonary disease) Current Visit: Yes Status: Chronic Continue scheduled bronchodilators. Continue the steroid taper. Qualifiers: COPD type: chronic bronchitis Chronic bronchitis type: mucopurulent Qualified Code(s): J41.1 - Mucopurulent chronic bronchitis (4) Acute kidney injury Current Visit: Yes Status: Acute Patient is making good urine output to keep at least a liter negative for next few days with close monitoring of the renal function. (5) DVT prophylaxis Current Visit: Yes Status: Acute According to primary service. Subjective Principal diagnosis: Sepsis Interval history: Patient didnt have any acute event events overnight. Pulmonary was consulted because the repeat CT scan chest showed worsening left-sided airspace disease. Patient was treated by me in ICU when she had worsening left lower lobe pneumonia and she responded well to the broad-spectrum antibiotics and now she is clinically lot better she still has some shortness of breath has some cough and sputum production but her oxygenation is improved denies any chest pain or chest tightness denies any fever or chills or constitutional symptoms. Objective PUL Vital signs: Last Vital Signs Temp 98.7 F 04/22/18 11:14 Pulse 76 04/22/18 11:14 Resp 18 04/22/18 11:31 BP 180/69 04/22/18 11:14 Pulse Ox 91 04/22/18 11:31 Effort: mildly labored Auscultation: bilateral: diminished breath sounds, rales (bibasilar rales ) Results - Laboratory Findings CBC and BMP: 04/22/18 04:00 04/22/18 04:38 ABG ABG pH 7.36 pH Units (7.32-7.45) 04/12/18 21:32 ABG pCO2 51 mmHg (35-45) H 04/12/18 21:32 ABG pO2 84 mmHg (85-104) L 04/12/18 21:32 ABG O2 Saturation 96 % (95-98) 04/12/18 21:32 PT/INR, D-dimer PT 13.2 Seconds (9.4-12.1) H 04/19/18 06:20 Abnormal lab findings: Abnormal lab results WBC 18.1 K/mcL (4.3-11.1) H 04/22/18 04:00 RBC 3.59 M/mcL (3.82-4.97) L 04/22/18 04:00 Hgb 9.1 g/dL (11.5-15.4) L 04/22/18 04:00 Hct 30.3 % (35.3-44.9) L 04/22/18 04:00 MCH 25.3 pg (28.0-33.3) L 04/22/18 04:00 MCHC 30.0 g/dL (31.6-35.5) L 04/22/18 04:00 RDW 22.5 % (11.5-14.5) H 04/22/18 04:00 Neutrophils # 17.1 K/mcL (1.6-8.9) H 04/20/18 03:50 Nucleated RBCs/100 WBC 1.9 /100 WBC (0) H 04/20/18 03:50 Hyposegmented Neuts Present (Not Present) A 04/12/18 01:20 Reactive Lymphocytes Present (Not Present) A 04/18/18 03:25 Toxic Granulation Present (Not Present) A 04/17/18 03:50 Dohle Bodies Present (Not Present) A 04/12/18 22:15 Clumped Platelets Few (Not Present) A 04/12/18 01:20 Large Platelets Present (Not Present) A 04/12/18 22:15 Immature Plt Fraction 20.9 % (1.1-6.1) H 04/22/18 04:00 Polychromasia 2+ (Not Present) A 04/17/18 03:50 Hypochromasia Present (Not Present) A 04/19/18 06:20 Poikilocytosis 1+ (Not Present) A 04/18/18 03:25 Anisocytosis 1+ (Not Present) A 04/19/18 06:20 Microcytosis Present (Not Present) A 04/18/18 03:25 Macrocytosis Present (Not Present) A 04/18/18 03:25 Target Cells 1+ (Not Present) A 04/19/18 06:20 Tear Drop Cells 1+ (Not Present) A 04/04/18 05:46 PT 13.2 Seconds (9.4-12.1) H 04/19/18 06:20 APTT 37.0 Seconds (26.0-36.0) H 04/13/18 03:05 ABG pCO2 51 mmHg (35-45) H 04/12/18 21:32 ABG pO2 84 mmHg (85-104) L 04/12/18 21:32 ABG HCO3 29 mEq/L (21-27) H 04/12/18 21:32 ABG Total CO2 30 mEq/L (20-26) H 04/12/18 21:32 VBG pH 7.27 pH Units (7.32-7.42) L 04/12/18 22:34 VBG pCO2 66 mmHg (41-51) H 04/12/18 22:34 VBG HCO3 30 mEq/L (21-27) H 04/12/18 22:34 Chloride 112 mEq/L (98-107) H 04/22/18 04:38 BUN 39 mg/dL (8-23) H 04/22/18 04:38 Creatinine 1.50 mg/dL (0.60-1.20) H 04/22/18 04:38 Est GFR ( Amer) 42 (> 60) L 04/22/18 04:38 Est GFR (Non-Af Amer) 35 (> 60) L 04/22/18 04:38 POC Glucose 165 mg/dL (70-99) H 04/21/18 21:06 Hemoglobin A1c 6.8 % (-5.6) H 03/26/18 06:14 Calcium 7.9 mg/dL (8.6-10.3) L 04/22/18 04:38 Venous Ioniz Calcium 0.98 mmol/L (1.15-1.35) L 04/15/18 15:55 Magnesium 1.3 mg/dL (1.6-2.6) L 04/22/18 04:38 Iron < 10 mcg/dL (50-170) L 03/29/18 05:53 Transferrin 158 mg/dL (203-362) L 03/29/18 05:53 ALT 95 Units/L (7-52) H 04/19/18 06:20 Alkaline Phosphatase 202 Units/L (34-104) H 04/19/18 06:20 Troponin I 0.06 ng/mL (< 0.04) H* 04/13/18 03:20 B-Natriuretic Peptide 185 pg/mL (Less than 100) H 03/25/18 00:59 Serum Total Protein 5.3 g/dL (6.4-8.9) L 04/19/18 06:20 Albumin 2.4 g/dL (3.5-5.7) L 04/19/18 06:20 Albumin/Globulin Ratio 0.8 (1.1-2.2) L 04/19/18 06:20 Urine Clarity Hazy (Clear) A 04/11/18 20:37 Ur Leukocyte Esterase Small (Negative) H 04/11/18 20:37 Urine Microscopic RBC 3-5 per hpf (0-3) H 03/27/18 04:15 Urine Microscopic WBC 15-30 per hpf (0-3) H 04/11/18 20:37 Ur Squamous Epith Cells Many per lpf (None-Few) H 04/11/18 20:37 Urine Bacteria Many per hpf (None-Few) H 04/11/18 20:37 Urine Yeast Many per hpf (None Seen) H 04/11/18 20:37 Ur Culture Indicated? NO. (NO) A 04/11/18 20:37 Stl C. diff Tox B Gene Positive (Negative) A 03/26/18 20:10 Stl C. diff Tox A/B PCR See reflex test (Not detect) A 03/26/18 20:10 Vancomycin Trough 19 mcg/mL (5-10) H 04/19/18 06:20 EKTA Screen DETECTED (None Detected) A 04/05/18 14:52 EKTA Titer 1:160 (<1:80) H 04/05/18 14:52 Mitochondria M2 IgG Ab 45.3 Units (0.0-20.0) H 04/05/18 14:52 Hepatitis A Ab Total POSITIVE (Negative) A 04/12/18 17:14 Mycoplasma pneumon IgG 0.48 U/L (<=0.09) H 04/05/18 12:12 - Clinical Findings Intake & Output: Intake & Output 04/21/18 04/22/18 04/22/18 23:59 07:59 15:59 Intake Total 100 / 100 300 / 300 Output Total 1125 / 1125 300 / 300 Balance 100 / 100 -825 / -825 -300 / -300 Weight 64.4 kg Consult Discharge Plan - Plan Referrals: Kathy Acosta DO [Resident] - 04/26/18 10:00 am
--- NOTE | 2018-04-22 14:43 | Infectious Disease Progress No ---
Date of Encounter: 04/22/18 Time of Encounter: 14:41 - Assessment and Plan (1) Sepsis Current Visit: No Status: Acute Progressed to septic shock requiring vasopressors with end organ damage. Likely secondary to pneumonia and Hepatitis A. WBC trending down. Vasopressors off. Hypothermia has resolved. Blood cultures obtained 03/25/18 are negative 2 sets. Repeat blood cultures drawn 04/11/18 are negative x 2 sets. Qualifiers: Qualified Code(s): A41.9 - Sepsis, unspecified organism (2) Pneumonia Current Visit: Yes Status: Acute Location: Multifocal, greatest in the left lower lobe. Causative organism: Unclear. No evidence of aspiration noted on exam. Respiratory infectious panel was negative. Strep pneumococcal and legionella urinary antigens were negative. The patient has been able to provide us with 2 sputum cultures that are both negative. CT chest 04/08/18 showed improvement, but CT abdomen and pelvis 04/11/18 showed persistent LLL pneumonia. Completed 12 days of Zosyn and 6 days of Vanc. About underlying pneumonia cannot be excluded. The radiologist interpreted as worsening since previous exam. Clinically, patient appears to have improved. She is requiring less oxygen and is more alert. CT of the chest completed 04/18/18 showed increasing multifocal airspace disease suggesting pneumonia. Recommend pulmonology to re-evaluate. The patient may benefit from bronchoscopy to assist with mucous clearance. Continue Zosyn 3.375 grams IV Q8H. (day 11) Continue Vancomycin IV. Pharmacy to dose. Goal trough ~15. (day 8) Duration of treatment depends on the clinical picture. Monitor renal function and for drug toxicity and dose-adjust antibiotics. Qualifiers: Qualified Code(s): J18.1 - Lobar pneumonia, unspecified organism (3) C. difficile colitis Current Visit: Yes Status: Acute Severe. Clinically, the patient's stools are more formed, but she is still stooling several times per day. Repeat CT of the abdomen and pelvis showed findings consistent with ileus and gastroenteritis on 04/08/[address] of the abdomen and pelvis 04/11/18 did not show any bowel thickening or toxic megacolon, but radiologist reports concern for ischemic bowel due to severe calcification of the mesenteric circulation. Status post colonoscopy 04/12/18 that was negative for pseudomembranous or toxic megacolon. IV Flagyl stopped by the primary team. Continue Vancomycin 125mg PO QID. (day 26). Duration of treatment depends on the clinical picture. (4) Abdominal pain Current Visit: Yes Status: Resolved Secondary to C diff colitis and gastroenteritis and Hepatitis A. GI consulted. Appreciate recommendations. LFTs this morning markedly elevated and lactic acid 9. CT abdomen and pelvis on 04/03/2018: Cholelithiasis, small amount of gas within the bladder. Decreased small bowel distention with small bowel wall thickening in the left upper quadrant; no toxic megacolon. Repeat CT of the abdomen and pelvis 04/11/18 showed findings concerning for ischemic bowel. Status post colonoscopy 04/12/15 that was negative for pseudomembranous colitis or toxic megacolon. Resolved. Qualifiers: Qualified Code(s): R10.84 - Generalized abdominal pain (5) Rectal bleeding Current Visit: Yes Status: Resolved Patient started having bloody stools overnight. Etiology unclear. Not sure that it is from the C. diff since her stools are formed. Status post colonoscopy 04/12/18 that was negative for bleeding. Appears resolved. Management and transfusion parameters per the primary team. (6) Elevated transaminase level Current Visit: Yes Status: Resolved Likely secondary to Hepatitis A vs. shock liver. Trending down. Continue supportive care. (7) Lactic acidosis Current Visit: Yes Status: Resolved Likely secondary to sepsis. Improved. (8) Acute kidney injury Current Visit: Yes Status: Acute Etiology unclear. Serum creatinine trending down. Nephrology consulted and following. Continue to trend. CRRT started 04/12/18, discontinued 04/15/18. Possible intermittent HD. Await recommendations from nephrology. (9) Hepatitis A Current Visit: Yes Status: Acute Hepatitis A antibody positive. Likely contributing to the elevated LFTs. Continue to trend LFTs and continue supportive care. Qualifiers: Qualified Code(s): B15.9 - Hepatitis A without hepatic coma - Subjective Interval history: Patient seen and examined. No acute events noted overnight. Patient states that overall she feels well. Denies shortness of breath or cough. Denies pain. Reports gas abdominal pain that re-started 3 days ago. Denies fevers, chills, or rigors. Denies nausea, vomiting, or diarrhea. Reports stools are loose. Denies oral thrush. Currently on O2 via nasal cannula. Infect Dis PN-Objective Data - Labs CBC & Chem 7: 10/15/18 04:00 04/22/18 04:38 Labs: Laboratory Results - last 24 hr 04/21/18 04/21/18 04/21/18 07:34 10:33 16:42 WBC RBC Hgb Hct MCV MCH MCHC RDW Plt Count MPV Immature Plt Fraction Sodium Potassium Chloride Carbon Dioxide BUN Creatinine Est GFR ( Amer) Est GFR (Non-Af Amer) BUN/Creatinine Ratio Glucose POC Glucose 73 96 200 H Calculated Osmolality Calcium Magnesium Random Vancomycin 04/21/18 04/22/18 04/22/18 21:06 04:00 04:38 WBC 18.1 H RBC 3.59 L Hgb 9.1 L Hct 30.3 L MCV 84.4 MCH 25.3 L MCHC 30.0 L RDW 22.5 H Plt Count 181 MPV TNP Immature Plt Fraction 20.9 H Sodium 140 Potassium 4.2 Chloride 112 H Carbon Dioxide 27 BUN 39 H Creatinine 1.50 H Est GFR ( Amer) 42 L Est GFR (Non-Af Amer) 35 L BUN/Creatinine Ratio 26 Glucose 94 POC Glucose 165 H Calculated Osmolality 299 Calcium 7.9 L Magnesium 1.3 L Random Vancomycin 14 Cultures: Cultures 04/11/18 11:55 Blood Culture - Final Peripheral Venipuncture No growth. Final report. 04/11/18 11:53 Blood Culture - Final Peripheral Venipuncture No growth. Final report. 04/05/18 13:38 Sputum Culture - Final Sputum 04/05/18 16:38 Sputum Culture - Final Sputum 03/27/18 04:15 Legionella Antigen - Final Urine,[place] Streptococcus pneumoniae Antigen (M - Final Serology 04/17/18 04/12/18 04/11/18 Range/Units 03:50 17:14 20:37 Urine Color Dark Yellow (Yellow) Urine Clarity Hazy A (Clear) Urine pH 5.0 (5.0-8.0) pH Units Ur Specific [place] 1.018 (1.010-1.025) Urine Protein Trace (Neg-Trace) mg/dL Urine Glucose (UA) Normal (Normal) mg/dL Urine Ketones Negative (Negative) mg/dL Urine Blood Negative (Negative) Urine Nitrite Negative (Negative) Urine Bilirubin Negative (Negative) Urine Urobilinogen Normal (Normal) mg/dL Ur Leukocyte Esterase Small H (Negative) Urine Microscopic RBC (0-3) per hpf Urine Microscopic WBC 15-30 H (0-3) per hpf Ur Squamous Epith Cells Many H (None-Few) per lpf Urine Bacteria Many H (None-Few) per hpf Hyaline Casts Few (None-Few) per lpf Urine Yeast Many H Ur Culture Indicated? NO. A (NO) Nasal Screen MRSA (PCR) (Negative) Stl C. cayetanensis PCR (Not detect) Stool Rotavirus A PCR (Not detect) Stl Adenov F 40/41 PCR (Not detect) Stool Astrovirus (PCR) (Not detect) Stool Campylobacter PCR (Not detect) Stl C. diff Tox B Gene (Negative) Stl C. diff Tox A/B PCR (Not detect) Stool Cryptosporidium PCR (Not detect) Stl Sh Tox Pr E STEC PCR (Not detect) Stool E coli O157 PCR (Not detect) Stl Enterotoxigenic E PCR (Not detect) Stool EPEC (PCR) (Not detect) Stool EAEC (PCR) (Not detect) Stl E. histolytica PCR (Not detect) Stool Giardia Lamblia PCR (Not detect) Stool Salmonella PCR (Not detect) Stool Sapovirus (PCR) (Not detect) Stl P. shigelloides PCR (Not detect) Stl Shigella/EIEC PCR (Not detect) St Y.enterocolitica PCR (Not detect) Stool Vibrio (PCR) (Not detect) Stl Vibrio cholerae PCR (Not detect) Stl Norovirus GI/GII PCR (Not detect) Stl GI Panel (PCR) Com Chlamy pneumoniae PCR (Not Detect) Adenovirus (PCR) (Not Detect) B. pertussis DNA (PCR) (Not Detect) B.parapertussis DNA PCR (Not Detect) Coronavirus OC43 (PCR) (Not Detect) Coronavirus HKU1 (PCR) (Not Detect) Coronavirus 229E (PCR) (Not Detect) Coronavirus NL63 (PCR) (Not Detect) Hepatitis A IgM Ab Nonreactive (Nonreactive) Hepatitis A Ab Total POSITIVE A (Negative) Hep Bs Antigen Nonreactive (Nonreactive) Hep B Core IgM Ab Nonreactive (Nonreactive) Hepatitis C Ab Screen Nonreactive (Nonreactive) Human Metapneumovir PCR (Not Detect) Influenza A (H1) PCR (Not Detect) Influ A (H1N1/09) PCR (Not Detect) Influenza A (H3) PCR (Not Detect) Influenza A Untype (PCR) (Not Detect) Influenza Type B (PCR) (Not Detect) Mycoplasma pneumon IgG (<=0.09) U/L Mycoplasma pneumon IgM (<=0.76) U/L M.pneumoniae DNA (PCR) (Not Detect) Parainfluenza 1 (PCR) (Not Detect) Parainfluenza 2 (PCR) (Not Detect) Parainfluenza 3 (PCR) (Not Detect) Parainfluenza 4 (PCR) (Not Detect) RSV (PCR) (Not Detect) Entero/Rhino (PCR) (Not Detect) 04/05/18 04/05/18 04/05/18 Range/Units 12:12 09:20 09:20 Urine Color (Yellow) Urine Clarity (Clear) Urine pH (5.0-8.0) pH Units Ur Specific [place] (1.010-1.025) Urine Protein (Neg-Trace) mg/dL Urine Glucose (UA) (Normal) mg/dL Urine Ketones (Negative) mg/dL Urine Blood (Negative) Urine Nitrite (Negative) Urine Bilirubin (Negative) Urine Urobilinogen (Normal) mg/dL Ur Leukocyte Esterase (Negative) Urine Microscopic RBC (0-3) per hpf Urine Microscopic WBC (0-3) per hpf Ur Squamous Epith Cells (None-Few) per lpf Urine Bacteria (None-Few) per hpf Hyaline Casts (None-Few) per lpf Urine Yeast Ur Culture Indicated? (NO) Nasal Screen MRSA (PCR) Negative (Negative) Stl C. cayetanensis PCR (Not detect) Stool Rotavirus A PCR (Not detect) Stl Adenov F 40/41 PCR (Not detect) Stool Astrovirus (PCR) (Not detect) Stool Campylobacter PCR (Not detect) Stl C. diff Tox B Gene (Negative) Stl C. diff Tox A/B PCR (Not detect) Stool Cryptosporidium PCR (Not detect) Stl Sh Tox Pr E STEC PCR (Not detect) Stool E coli O157 PCR (Not detect) Stl Enterotoxigenic E PCR (Not detect) Stool EPEC (PCR) (Not detect) Stool EAEC (PCR) (Not detect) Stl E. histolytica PCR (Not detect) Stool Giardia Lamblia PCR (Not detect) Stool Salmonella PCR (Not detect) Stool Sapovirus (PCR) (Not detect) Stl P. shigelloides PCR (Not detect) Stl Shigella/EIEC PCR (Not detect) St Y.enterocolitica PCR (Not detect) Stool Vibrio (PCR) (Not detect) Stl Vibrio cholerae PCR (Not detect) Stl Norovirus GI/GII PCR (Not detect) Stl GI Panel (PCR) Com Chlamy pneumoniae PCR Not Detected (Not Detect) Adenovirus (PCR) Not Detected (Not Detect) B. pertussis DNA (PCR) Not Detected (Not Detect) B.parapertussis DNA PCR Not Detected (Not Detect) Coronavirus OC43 (PCR) Not Detected (Not Detect) Coronavirus HKU1 (PCR) Not Detected (Not Detect) Coronavirus 229E (PCR) Not Detected (Not Detect) Coronavirus NL63 (PCR) Not Detected (Not Detect) Hepatitis A IgM Ab (Nonreactive) Hepatitis A Ab Total (Negative) Hep Bs Antigen (Nonreactive) Hep B Core IgM Ab (Nonreactive) Hepatitis C Ab Screen (Nonreactive) Human Metapneumovir PCR Not Detected (Not Detect) Influenza A (H1) PCR Not Detected (Not Detect) Influ A (H1N1/09) PCR Not Detected (Not Detect) Influenza A (H3) PCR Not Detected (Not Detect) Influenza A Untype (PCR) Not Detected (Not Detect) Influenza Type B (PCR) Not Detected (Not Detect) Mycoplasma pneumon IgG 0.48 H (<=0.09) U/L Mycoplasma pneumon IgM 0.13 (<=0.76) U/L M.pneumoniae DNA (PCR) Not Detected (Not Detect) Parainfluenza 1 (PCR) Not Detected (Not Detect) Parainfluenza 2 (PCR) Not Detected (Not Detect) Parainfluenza 3 (PCR) Not Detected (Not Detect) Parainfluenza 4 (PCR) Not Detected (Not Detect) RSV (PCR) Not Detected (Not Detect) Entero/Rhino (PCR) Not Detected (Not Detect) 03/29/18 03/27/18 03/26/18 Range/Units 08:40 04:15 20:10 Urine Color Yellow (Yellow) Urine Clarity Clear (Clear) Urine pH 5.5 (5.0-8.0) pH Units Ur Specific [place] 1.023 (1.010-1.025) Urine Protein Negative (Neg-Trace) mg/dL Urine Glucose (UA) Normal (Normal) mg/dL Urine Ketones Negative (Negative) mg/dL Urine Blood Trace H (Negative) Urine Nitrite Negative (Negative) Urine Bilirubin Negative (Negative) Urine Urobilinogen Normal (Normal) mg/dL Ur Leukocyte Esterase Small H (Negative) Urine Microscopic RBC 3-5 H (0-3) per hpf Urine Microscopic WBC 5-15 H (0-3) per hpf Ur Squamous Epith Cells Many H (None-Few) per lpf Urine Bacteria None Seen (None-Few) per hpf Hyaline Casts Few (None-Few) per lpf Urine Yeast Test Not Performed Ur Culture Indicated? NO. A (NO) Nasal Screen MRSA (PCR) (Negative) Stl C. cayetanensis PCR (Not detect) Stool Rotavirus A PCR (Not detect) Stl Adenov F 40/41 PCR (Not detect) Stool Astrovirus (PCR) (Not detect) Stool Campylobacter PCR (Not detect) Stl C. diff Tox B Gene Positive A (Negative) Stl C. diff Tox A/B PCR (Not detect) Stool Cryptosporidium PCR (Not detect) Stl Sh Tox Pr E STEC PCR (Not detect) Stool E coli O157 PCR (Not detect) Stl Enterotoxigenic E PCR (Not detect) Stool EPEC (PCR) (Not detect) Stool EAEC (PCR) (Not detect) Stl E. histolytica PCR (Not detect) Stool Giardia Lamblia PCR (Not detect) Stool Salmonella PCR (Not detect) Stool Sapovirus (PCR) (Not detect) Stl P. shigelloides PCR (Not detect) Stl Shigella/EIEC PCR (Not detect) St Y.enterocolitica PCR (Not detect) Stool Vibrio (PCR) (Not detect) Stl Vibrio cholerae PCR (Not detect) Stl Norovirus GI/GII PCR (Not detect) Stl GI Panel (PCR) Com Chlamy pneumoniae PCR (Not Detect) Adenovirus (PCR) (Not Detect) B. pertussis DNA (PCR) (Not Detect) B.parapertussis DNA PCR (Not Detect) Coronavirus OC43 (PCR) (Not Detect) Coronavirus HKU1 (PCR) (Not Detect) Coronavirus 229E (PCR) (Not Detect) Coronavirus NL63 (PCR) (Not Detect) Hepatitis A IgM Ab (Nonreactive) Hepatitis A Ab Total (Negative) Hep Bs Antigen (Nonreactive) Hep B Core IgM Ab (Nonreactive) Hepatitis C Ab Screen (Nonreactive) Human Metapneumovir PCR (Not Detect) Influenza A (H1) PCR (Not Detect) Influ A (H1N1/09) PCR (Not Detect) Influenza A (H3) PCR (Not Detect) Influenza A Untype (PCR) (Not Detect) Influenza Type B (PCR) (Not Detect) Mycoplasma pneumon IgG 0.30 H (<=0.09) U/L Mycoplasma pneumon IgM 0.06 (<=0.76) U/L M.pneumoniae DNA (PCR) (Not Detect) Parainfluenza 1 (PCR) (Not Detect) Parainfluenza 2 (PCR) (Not Detect) Parainfluenza 3 (PCR) (Not Detect) Parainfluenza 4 (PCR) (Not Detect) RSV (PCR) (Not Detect) Entero/Rhino (PCR) (Not Detect) 03/26/18 Range/Units 20:10 Urine Color (Yellow) Urine Clarity (Clear) Urine pH (5.0-8.0) pH Units Ur Specific [place] (1.010-1.025) Urine Protein (Neg-Trace) mg/dL Urine Glucose (UA) (Normal) mg/dL Urine Ketones (Negative) mg/dL Urine Blood (Negative) Urine Nitrite (Negative) Urine Bilirubin (Negative) Urine Urobilinogen (Normal) mg/dL Ur Leukocyte Esterase (Negative) Urine Microscopic RBC (0-3) per hpf Urine Microscopic WBC (0-3) per hpf Ur Squamous Epith Cells (None-Few) per lpf Urine Bacteria (None-Few) per hpf Hyaline Casts (None-Few) per lpf Urine Yeast Ur Culture Indicated? (NO) Nasal Screen MRSA (PCR) (Negative) Stl C. cayetanensis PCR Not detected (Not detect) Stool Rotavirus A PCR Not detected (Not detect) Stl Adenov F 40/41 PCR Not detected (Not detect) Stool Astrovirus (PCR) Not detected (Not detect) Stool Campylobacter PCR Not detected (Not detect) Stl C. diff Tox B Gene (Negative) Stl C. diff Tox A/B PCR See reflex test A (Not detect) Stool Cryptosporidium PCR Not detected (Not detect) Stl Sh Tox Pr E STEC PCR Not detected (Not detect) Stool E coli O157 PCR Not detected (Not detect) Stl Enterotoxigenic E PCR Not detected (Not detect) Stool EPEC (PCR) Not detected (Not detect) Stool EAEC (PCR) Not detected (Not detect) Stl E. histolytica PCR Not detected (Not detect) Stool Giardia Lamblia PCR Not detected (Not detect) Stool Salmonella PCR Not detected (Not detect) Stool Sapovirus (PCR) Not detected (Not detect) Stl P. shigelloides PCR Not detected (Not detect) Stl Shigella/EIEC PCR Not detected (Not detect) St Y.enterocolitica PCR Not detected (Not detect) Stool Vibrio (PCR) Not detected (Not detect) Stl Vibrio cholerae PCR Not detected (Not detect) Stl Norovirus GI/GII PCR Not detected (Not detect) Stl GI Panel (PCR) Com See below Chlamy pneumoniae PCR (Not Detect) Adenovirus (PCR) (Not Detect) B. pertussis DNA (PCR) (Not Detect) B.parapertussis DNA PCR (Not Detect) Coronavirus OC43 (PCR) (Not Detect) Coronavirus HKU1 (PCR) (Not Detect) Coronavirus 229E (PCR) (Not Detect) Coronavirus NL63 (PCR) (Not Detect) Hepatitis A IgM Ab (Nonreactive) Hepatitis A Ab Total (Negative) Hep Bs Antigen (Nonreactive) Hep B Core IgM Ab (Nonreactive) Hepatitis C Ab Screen (Nonreactive) Human Metapneumovir PCR (Not Detect) Influenza A (H1) PCR (Not Detect) Influ A (H1N1/09) PCR (Not Detect) Influenza A (H3) PCR (Not Detect) Influenza A Untype (PCR) (Not Detect) Influenza Type B (PCR) (Not Detect) Mycoplasma pneumon IgG (<=0.09) U/L Mycoplasma pneumon IgM (<=0.76) U/L M.pneumoniae DNA (PCR) (Not Detect) Parainfluenza 1 (PCR) (Not Detect) Parainfluenza 2 (PCR) (Not Detect) Parainfluenza 3 (PCR) (Not Detect) Parainfluenza 4 (PCR) (Not Detect) RSV (PCR) (Not Detect) Entero/Rhino (PCR) (Not Detect) - Impressions Impressions Guidance Ultrasound 04/12/18 00:00 IMPRESSION: Bedside placement of a temporary hemodialysis catheter through the right internal jugular vein as described above. This may be used immediately. Attempted right groin access, though unable to successfully performed given the tortuous nature of the femoral venous system medially posterior to the right common femoral and superficial femoral arteries. D/ / Damien Collins MD / Damien Collins MD Interpreting Provider: Damien Collins MD Insertion Non-Tunneled Catheter 04/12/18 00:00 IMPRESSION: Bedside placement of a temporary hemodialysis catheter through the right internal jugular vein as described above. This may be used immediately. Attempted right groin access, though unable to successfully performed given the tortuous nature of the femoral venous system medially posterior to the right common femoral and superficial femoral arteries. D/ / Damien Collins MD / Damien Collins MD Interpreting Provider: Damien Collins MD X-Ray 04/21/18 12:50 IMPRESSION: 1. Nonspecific bowel gas pattern with no evidence for obstruction. 2. Cholelithiasis. 3. Severe atherosclerotic disease. D/ / Richard Spence MD / Richard Spence MD Interpreting Provider: Richard Spence MD Exam - Constitutional Vitals: Temp Pulse Resp BP Pulse Ox 98.7 F 76 18 180/69 91 04/22/18 11:14 04/22/18 11:14 04/22/18 11:31 04/22/18 11:14 04/22/18 11:31 General appearance: average body habitus, cooperative, no acute distress - Head Head exam: Present: atraumatic, normal inspection, normocephalic - Eye Eye exam: Present: EOMI, normal appearance, PERRL Pupils: Present: normal accommodation - ENT ENT exam: Present: mucous membranes moist - Neck Neck exam: Present: normal inspection - Respiratory Respiratory exam: Present: CTAB. Absent: rales, respiratory distress, rhonchi, wheezes - Cardiovascular Cardiovascular exam: Present: RRR, +S1, +S2 - GI/Abdominal GI/Abdominal exam: Present: normal bowel sounds, soft, tenderness (generalized) . Absent: distended Additional comments: Chandra catheter noted to be draining clear yellow urine. - Extremities Exam Extremities exam: Present: normal inspection. Absent: joint swelling, pedal edema, tenderness - Neurological Exam Neurological exam: Present: alert, oriented X3. Absent: no focal deficits ( Paralysis noted to the RLE with decreased motor and sensation to the RUE.) - Psychiatric Psychiatric exam: Present: normal affect, normal mood - Skin Skin exam: Present: dry, intact, normal color, warm Consult Discharge Plan - Plan Referrals: Kathy Acosta DO [Resident] - 04/26/18 10:00 am - Attending Attestation I examined this patient and my medical decision-making was reviewed with the Resident Physician. I agree with the documented findings, disposition and treatment plan as described except to the extent set forth below.
--- NOTE | 2018-04-22 15:04 | Internal Med Progress Note ---
Addendum entered and electronically signed by Lucero Salas 04/22/18 18:01: Lower lung lobe crackles, bilaterally Original Note: <Bruce Delgado - Last Filed: 04/22/18 15:38> Hospitalist Progress Note - Encounter Date of Encounter: 04/22/18 - Exam Vitals: Temp Pulse Resp BP Pulse Ox 98.7 F 76 18 180/69 91 04/22/18 11:14 04/22/18 11:14 04/22/18 11:31 04/22/18 11:14 04/22/18 11:31 - Assessment and Plan (1) Abdominal distension (gaseous) Current Visit: Yes Status: Acute (2) Hypertension Current Visit: Yes Status: Acute (3) C. difficile colitis Current Visit: Yes Status: Acute (4) Hepatitis A Current Visit: Yes Status: Acute (5) COPD (chronic obstructive pulmonary disease) Current Visit: Yes Status: Chronic (6) Pneumonia Current Visit: Yes Status: Suspected (7) Diabetes type 2, controlled Current Visit: Yes Status: Chronic (8) Anemia Current Visit: Yes Status: Suspected (9) Pulmonary nodule Current Visit: Yes Status: Acute (10) Sepsis Current Visit: Yes Status: Resolved (11) DVT prophylaxis Current Visit: Yes Status: Acute (12) Shock liver Current Visit: Yes Status: Resolved (13) NIGEL (acute kidney injury) Current Visit: Yes Status: Acute - Time Spent with Patient Total time spent is greater than 50% in coordination of care (as documented) at patient's floor/unit and/or counseling patient: Internal Medicine: Result - Labs CBC & Chem 7: 04/22/18 04:00 04/22/18 04:38 Labs: Short CBC 04/22/18 Range/Units 04:00 WBC 18.1 H (4.3-11.1) K/mcL Hgb 9.1 L (11.5-15.4) g/dL Hct 30.3 L (35.3-44.9) % Plt Count 181 (140-400) K/mcL BMP 04/22/18 04:38 Sodium 140 Potassium 4.2 Chloride 112 H Carbon Dioxide 27 BUN 39 H Creatinine 1.50 H Glucose 94 Calcium 7.9 L - ABG Interpretation ABG results: ABG ABG pH 7.36 pH Units (7.32-7.45) 04/12/18 21:32 ABG pCO2 51 mmHg (35-45) H 04/12/18 21:32 ABG pO2 84 mmHg (85-104) L 04/12/18 21:32 ABG O2 Saturation 96 % (95-98) 04/12/18 21:32 PT/INR, D-dimer PT 13.2 Seconds (9.4-12.1) H 04/19/18 06:20 - Impressions Impressions Guidance Ultrasound 04/12/18 00:00 IMPRESSION: Bedside placement of a temporary hemodialysis catheter through the right internal jugular vein as described above. This may be used immediately. Attempted right groin access, though unable to successfully performed given the tortuous nature of the femoral venous system medially posterior to the right common femoral and superficial femoral arteries. D/ / Damien Collins MD / Damien Collins MD Interpreting Provider: Damien Collins MD Insertion Non-Tunneled Catheter 04/12/18 00:00 IMPRESSION: Bedside placement of a temporary hemodialysis catheter through the right internal jugular vein as described above. This may be used immediately. Attempted right groin access, though unable to successfully performed given the tortuous nature of the femoral venous system medially posterior to the right common femoral and superficial femoral arteries. D/ / Damien Collins MD / Damien Collins MD Interpreting Provider: Damien Collins MD X-Ray 04/21/18 12:50 IMPRESSION: 1. Nonspecific bowel gas pattern with no evidence for obstruction. 2. Cholelithiasis. 3. Severe atherosclerotic disease. D/ / Richard Spence MD / Richard Spence MD Interpreting Provider: Richard Spence MD Consult Discharge Plan - Plan Referrals: Kathy Acosta DO [Resident] - 04/26/18 10:00 am - Attending Attestation I examined this patient and my medical decision-making was reviewed with the Resident Physician on 04/22/18. I agree with the documented findings, disposition and treatment plan as described except to the extent set forth below. Ms Lauren is currently admitted for multiple medical issues. She currently has a lot of congestion and CT evidence of pneumonia. She remains moderate to high risk due to potential for worsening clinical status. Ms Lauren feels OK. She is still having a lot of gas. No fever or chills. Coughing up sputum. No CP. No further diarrhea per patient. Exam Alert Comfortable Mucus membranes dry Heart distant Rhonchi bilaterally Abd soft with some diffusely tender. No peritoneal signs No edema I/P 1. Pneumonia - will ask pulm to reeval at this time. 2. C diff Further diagnoses and plan as above. <Lucero Salas - Last Filed: 04/22/18 17:53> Hospitalist Progress Note - Encounter Date of Encounter: 04/22/18 Time of Encounter: 09:15 - Subjective Interval History: Ms. Lauren was examined at bedside this morning. She was laying in bed, comfortable on room air. She had no events overnight. Her blood pressure remained stable overnight. Today her hemoglobin was 9.1 and has remained stable the past 4 days. She had just finished her breakfast and was asking about discharge and said she feels great. She had episodes of emesis. She continues to have several episodes of bowel movements, although more formed now. She denied any abdominal pain, nausea, emesis, fever, chills or chest pain. - Exam Vitals: Temp Pulse Resp BP Pulse Ox 98.7 F 76 18 180/69 91 04/22/18 11:14 04/22/18 11:14 04/22/18 11:31 04/22/18 11:14 04/22/18 11:31 Exam: Constitutional: Alert, in no acute distress, on room air HEENT: Normocephalic, atraumatic, moist mucus membranes Heart: Normal, regular rate and rhythm, no murmurs Lungs: lungs clear and equal bilaterally, no rhonchi, no wheeze Abdomen: Soft, normal bowel sounds, non tender Extremities: No edema of lower extremity or upper extremities, warm, nontender Skin: Skin warm and dry, no lesions, no rashes, no jaundice Psych: thought content congruent, appropriate affect Neurological: Alert and oriented x 3, 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 Plan: Stopped immodium Continue simethicone PRN (2) Pneumonia Current Visit: Yes Status: Suspected Assessment and Plan: CT chest on 04/03 showed multifocal PNA, greatest in the LLL. Patient had worsening left-sided infiltrates on 04/13. Repeat CT on 04/18/18 showed increasing multifocal airspace disease suggesting pneumonia and small pleural effusions. Plan: -Continue zosyn (day 11 since restarted, received 12 days previously) IV vancomycin, day 8 per ID recommendations -Renally dose antibiotics -Pulmonology consulted, recommending gentle diuresis and stopping zosyn -ABG in the morning to determine if she has daytime hypercapnia -Continue mucinex -Awaiting further recommendations for antibiotic dosing -Pulmonology recommends starting gentle diuresis as she is net positive intake, she is on home lasix (3) COPD (chronic obstructive pulmonary disease) Current Visit: Yes Status: Chronic Assessment and Plan: History of COPD. She is not in acute exacerbation. She is coughing and having sputum production. Plan: -Continue with duoneb Q4h prn -Continue to wean O2 supplementation -Continue mucinex -Continue prednisone taper -Pulmonology consulted (4) C. difficile colitis Current Visit: Yes Status: Acute Assessment and Plan: Diarrhea ongoing, hepatitis A IgM is negative so acute phase of hepatitis A is resolved. Continues to have many bowel movements daily, although more formed. She did not show any evidence of pseudomembranous colitis and toxic megacolon during sigmoidoscopy on 04/12. Plan: -ID recommends continuing oral vancomycin, day 26 -Duration of treatment per Infectious disease -Continue to monitor stool for changes in consistency -Continue probiotics -Continue to monitor vitals and CBC (5) Diabetes type 2, controlled Current Visit: Yes Status: Chronic Assessment and Plan: Her glucose today was 94 and yesterday was 82. She is having good oral intake. Plan: Decreased long acting glucose from 25 to 20 units Continue sliding scale Continue to monitor (6) Anemia Current Visit: Yes Status: Suspected Assessment and Plan: Hemoglobin stable again today, 9.1 and stable for the past 4 days. Plan: Continue to monitor Further GI work up as outpatient. (7) Pulmonary nodule Current Visit: Yes Status: Acute Assessment and Plan: CT of the chest noted a small lobulated nodule on the right upper lung lobe posteriorly Plan: Need to be followed to resolution after pneumonia resolves outpatient (8) Hepatitis A Current Visit: Yes Status: Acute Assessment and Plan: Tested positive on 04/12. Because of the long incubation period of hepatis A she may have had hepatitis A prior to admission but liver enzymes worsened on 04/12. She had Hep A antibody positive on 04/12 and repeat Hep A IgM was negative on , so no active Hep A infection. Plan: Continue to monitor (9) Sepsis Current Visit: Yes Status: Resolved Assessment and Plan: Resolved but continues to have . She progressed to septic shock on 04/12 and required vasopressors for one day. Her blood cultures remained negative. Likely source secondary to pneumonia and hepatitis A. Blood cultures negative from and negative 04/11. Plan: Continue pneumonia management, ID recommends continuing zosyn--day 11 total doses Continue IV vancomycin, per IDs recommendation, day 8 Continue monitoring vitals Repeat chest xray on 04/[address] chest on 04/18 shows increased multifocal airspace disease suggesting pneumonia CBC in the morning (10) Shock liver Current Visit: Yes Status: Resolved Assessment and Plan: Resolved. (11) NIGEL (acute kidney injury) Current Visit: Yes Status: Acute Assessment and Plan: Per nephrology, creatinine of 1.50 today. Dialysis catheter to be removed, having decent output but still net positive in fluids Plan: -Start gentle diuresis (12) Hypertension Current Visit: Yes Status: Acute Assessment and Plan: Remains elevated even with 5 mg of amlodapine. Plan: Increased amlodapine to 10 mg, home dose Will start gentle diuresis with furosemide Continue to monitor (13) DVT prophylaxis Current Visit: Yes Status: Acute Assessment and Plan: SCDs - Time Spent with Patient Total time spent is greater than 50% in coordination of care (as documented) at patient's floor/unit and/or counseling patient: less than 15 minutes Plan of Care Discussed with: patient Internal Medicine: Result - Labs CBC & Chem 7: 04/22/18 04:00 04/22/18 04:38 Labs: Short CBC 04/22/18 Range/Units 04:00 WBC 18.1 H (4.3-11.1) K/mcL Hgb 9.1 L (11.5-15.4) g/dL Hct 30.3 L (35.3-44.9) % Plt Count 181 (140-400) K/mcL BMP 04/22/18 04:38 Sodium 140 Potassium 4.2 Chloride 112 H Carbon Dioxide 27 BUN 39 H Creatinine 1.50 H Glucose 94 Calcium 7.9 L - ABG Interpretation ABG results: ABG ABG pH 7.36 pH Units (7.32-7.45) 04/12/18 21:32 ABG pCO2 51 mmHg (35-45) H 04/12/18 21:32 ABG pO2 84 mmHg (85-104) L 04/12/18 21:32 ABG O2 Saturation 96 % (95-98) 04/12/18 21:32 PT/INR, D-dimer PT 13.2 Seconds (9.4-12.1) H 04/19/18 06:20 - Impressions Impressions Guidance Ultrasound 04/12/18 00:00 IMPRESSION: Bedside placement of a temporary hemodialysis catheter through the right internal jugular vein as described above. This may be used immediately. Attempted right groin access, though unable to successfully performed given the tortuous nature of the femoral venous system medially posterior to the right common femoral and superficial femoral arteries. D/ / Damien Collins MD / Damien Collins MD Interpreting Provider: Damien Collins MD Insertion Non-Tunneled Catheter 04/12/18 00:00 IMPRESSION: Bedside placement of a temporary hemodialysis catheter through the right internal jugular vein as described above. This may be used immediately. Attempted right groin access, though unable to successfully performed given the tortuous nature of the femoral venous system medially posterior to the right common femoral and superficial femoral arteries. D/ / Damien Collins MD / Damien Collins MD Interpreting Provider: Damien Collins MD X-Ray 04/21/18 12:50 IMPRESSION: 1. Nonspecific bowel gas pattern with no evidence for obstruction. 2. Cholelithiasis. 3. Severe atherosclerotic disease. D/ / Richard Spence MD / Richard Spence MD Interpreting Provider: Richard Spence MD <Bruce Delgado - Last Filed: 04/22/18 15:38> (2) Hypertension Qualifiers: Hypertension type: essential hypertension Qualified Code(s): I10 - Essential (primary) hypertension (4) Hepatitis A Qualifiers: Hepatic coma status: without hepatic coma Qualified Code(s): B15.9 - Hepatitis A without hepatic coma (5) COPD (chronic obstructive pulmonary disease) Qualifiers: COPD type: chronic bronchitis Chronic bronchitis type: mucopurulent Qualified Code(s): J41.1 - Mucopurulent chronic bronchitis (6) Pneumonia Qualifiers: Pneumonia type: due to other aerobic Gram-negative bacteria Laterality: bilateral Lung location: lower lobe of lung Qualified Code(s): J15.6 - Pneumonia due to other Gram-negative bacteria (7) Diabetes type 2, controlled Qualifiers: Diabetes mellitus penitentiary insulin use: with penitentiary use Diabetes mellitus complication status: with hyperglycemia Qualified Code(s): E11.65 - Type 2 diabetes mellitus with hyperglycemia; 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 <Josue,Lucero - Last Filed: 04/22/18 17:53> (2) Pneumonia Qualifiers: Pneumonia type: due to other aerobic Gram-negative bacteria Laterality: bilateral Lung location: lower lobe of lung Qualified Code(s): J15.6 - Pneumonia due to other Gram-negative bacteria (3) COPD (chronic obstructive pulmonary disease) Qualifiers: COPD type: chronic bronchitis Chronic bronchitis type: mucopurulent Qualified Code(s): J41.1 - Mucopurulent chronic bronchitis (5) Diabetes type 2, controlled Qualifiers: Diabetes mellitus meterman insulin use: with penitentiary use Diabetes mellitus complication status: with hyperglycemia Qualified Code(s): E11.65 - Type 2 diabetes mellitus with hyperglycemia; 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
[2018-04-22] MEDS: Acetaminophen 325 MG TABLET PO PRN (15:36)
[2018-04-22] MEDS ORDERED: Furosemide 20 MG/2 ML VIAL IVP SCH (19:15)
[2018-04-22] MEDS: traZODone 50 MG TABLET PO SCH (20:32)
[2018-04-22] MEDS ORDERED: Insulin DETEMIR 100 UNIT/ML X5UNITS SQ SCH (21:00)
[2018-04-23 03:55] LABS: Basophils % 0.1 %; Eosinophils # 0.1 K/mcL (0.0-0.6); Eosinophils % 0.3 %; Hematocrit 29.3 % (35.3-44.9); Hemoglobin 8.8 g/dL (11.5-15.4); Immature Granulocytes % 0.5 % (0-4); Lymphocytes # 1.4 K/mcL (0.6-4.6); Lymphocytes % 6.4 %; Mean Corpuscular Hemoglobin 25.1 pg (28.0-33.3); Mean Corpuscular Volume 83.7 fL (83.0-100.0); Mean Platelet Volume 12.4 fL (9.4-12.4); Monocytes # 0.6 K/mcL (0.0-1.3); Neutrophils # 18.8 K/mcL (1.6-8.9); Nucleated Red Blood Cells 0.1 /100 WBC (0); Platelet Count 206 K/mcL (140-400); Red Cell Distribution Width 22.4 % (11.5-14.5); Segmented Neutrophils % 89.7 %
[2018-04-23 04:09] LABS: Calcium 8.2 mg/dL (8.6-10.3); Potassium 3.6 mEq/L (3.5-5.1)
[2018-04-23] MEDS: Ipratropium/Albuterol Neb 3 ML IH SCH ×5 (04:11→20:19)
[2018-04-23] MEDS: *HR* Dextrose 50 % in Water (Syg) 50 ML SYRINGE IVP PRN (07:40)
--- NOTE | 2018-04-23 07:40 | Pulmonology Progress Note ---
Date of Encounter: 04/23/18 Time of Encounter: 07:30 Assessment and Plan (1) Pneumonia Current Visit: Yes Status: Acute Patient had outpatient CT scan which was recently done in comparing with CT scan of April 08 looks like worsening airspace disease but looking at the CT abdomen which was done around April 11 where she decompensated into septic shock and multiorgan dysfunction syndrome with worsening left lower lobe infiltrates which was seen in the CT scan so the current CT scan assess sequelae of the worsened left-sided airspace disease which happened around April [address] scan shows no evidence of mucus plugging all the major lobar airways are open there is atelectasis with the airbronchogrmas on both bases. This is mostly multifactorial with pneumonia and patient being lying down lead to the atelectasis there is no evidence of mucus plugging which is causing this volume loss the patient clinically getting better and radiological changes lag behind i do not think bronchoscopy will help in the background of her clinical picture is improving . She needs to sit in the chair with incentive spirometry and flutter valve every 6 hours if she does not do that and keep lying on the bed and this atelectasis bibasilar will not improve. If her V/Q mismatch worsens will consider bronchoscopy at that point I spoke my recommendation to the primary team will be happy to discuss with infectious disease team. Continue diuresis as tolerated and she is 9 L positive. 04/23 Patient repeat chest x-ray today after worsening hypoxic respiratory failure showed improved left lower lobe consolidative opacity this rapid decompensation most likely due to fluid overload if she is not responding to diuresis will get a CT PE protocol to rule out any pulmonary embolism. Since there is no acute worsening of consolidation or lung collapse in the chest x- ray. To continue antibiotics as per ID. Qualifiers: Pneumonia type: due to unspecified organism Laterality: bilateral Lung location: lower lobe of lung Qualified Code(s): J18.1 - Lobar pneumonia, unspecified organism (2) C. difficile colitis Current Visit: Yes Status: Acute Management according to infectious disease. (3) COPD (chronic obstructive pulmonary disease) Current Visit: Yes Status: Chronic Continue scheduled bronchodilators. Patient has more wheezing causing this V/ Q mismatch agree with primary team starting her on IV steroids. Qualifiers: COPD type: chronic bronchitis Chronic bronchitis type: mucopurulent Qualified Code(s): J41.1 - Mucopurulent chronic bronchitis (4) Acute kidney injury Current Visit: Yes Status: Acute To continue diuresis as tolerated. (5) DVT prophylaxis Current Visit: Yes Status: Acute According to primary service. Subjective Principal diagnosis: Sepsis Interval history: Patient didnt have any acute event events overnight. Pulmonary was consulted because the repeat CT scan chest showed worsening left-sided airspace disease. Patient was treated by me in ICU when she had worsening left lower lobe pneumonia and she responded well to the broad-spectrum antibiotics and now she is clinically lot better she still has some shortness of breath has some cough and sputum production but her oxygenation is improved denies any chest pain or chest tightness denies any fever or chills or constitutional symptoms. 04/23 during my morning rounds patient found to be hypoglycemic and hypoxic ABG showed some acute hypercarbia with profound hypoxia chest x-ray showed improved left lower lobe opacities and improving left-sided pleural effusion patient denies any chest pain chest tightness does not complain of much shortness of breath she was participating in history taking and review of systems denies any nausea vomiting she was not eating at the time, denies much cough or sputum production. Objective PUL Vital signs: Last Vital Signs Temp 97.8 F 04/23/18 04:11 Pulse 73 04/23/18 04:11 Resp 17 04/23/18 04:12 BP 174/70 04/23/18 04:11 Pulse Ox 92 04/23/18 04:12 Effort: mildly labored Auscultation: bilateral: rales (bibasilar rales ) Results - Laboratory Findings CBC and BMP: 04/23/18 03:40 04/23/18 03:40 ABG ABG pH 7.36 pH Units (7.32-7.45) 04/12/18 21:32 ABG pCO2 51 mmHg (35-45) H 04/12/18 21:32 ABG pO2 84 mmHg (85-104) L 04/12/18 21:32 ABG O2 Saturation 96 % (95-98) 04/12/18 21:32 PT/INR, D-dimer PT 13.2 Seconds (9.4-12.1) H 04/19/18 06:20 Abnormal lab findings: Abnormal lab results WBC 20.9 K/mcL (4.3-11.1) H 04/23/18 03:40 RBC 3.50 M/mcL (3.82-4.97) L 04/23/18 03:40 Hgb 8.8 g/dL (11.5-15.4) L 04/23/18 03:40 Hct 29.3 % (35.3-44.9) L 04/23/18 03:40 MCH 25.1 pg (28.0-33.3) L 04/23/18 03:40 MCHC 30.0 g/dL (31.6-35.5) L 04/23/18 03:40 RDW 22.4 % (11.5-14.5) H 04/23/18 03:40 Neutrophils # 18.8 K/mcL (1.6-8.9) H 04/23/18 03:40 Nucleated RBCs/100 WBC 0.1 /100 WBC (0) H 04/23/18 03:40 Hyposegmented Neuts Present (Not Present) A 04/12/18 01:20 Reactive Lymphocytes Present (Not Present) A 04/18/18 03:25 Toxic Granulation Present (Not Present) A 04/17/18 03:50 Dohle Bodies Present (Not Present) A 04/12/18 22:15 Clumped Platelets Few (Not Present) A 04/12/18 01:20 Large Platelets Present (Not Present) A 04/12/18 22:15 Immature Plt Fraction 20.9 % (1.1-6.1) H 04/22/18 04:00 Polychromasia 2+ (Not Present) A 04/17/18 03:50 Hypochromasia Present (Not Present) A 04/19/18 06:20 Poikilocytosis 1+ (Not Present) A 04/18/18 03:25 Anisocytosis 1+ (Not Present) A 04/19/18 06:20 Microcytosis Present (Not Present) A 04/18/18 03:25 Macrocytosis Present (Not Present) A 04/18/18 03:25 Target Cells 1+ (Not Present) A 04/19/18 06:20 Tear Drop Cells 1+ (Not Present) A 04/04/18 05:46 PT 13.2 Seconds (9.4-12.1) H 04/19/18 06:20 APTT 37.0 Seconds (26.0-36.0) H 04/13/18 03:05 ABG pCO2 51 mmHg (35-45) H 04/12/18 21:32 ABG pO2 84 mmHg (85-104) L 04/12/18 21:32 ABG HCO3 29 mEq/L (21-27) H 04/12/18 21:32 ABG Total CO2 30 mEq/L (20-26) H 04/12/18 21:32 VBG pH 7.27 pH Units (7.32-7.42) L 04/12/18 22:34 VBG pCO2 66 mmHg (41-51) H 04/12/18 22:34 VBG HCO3 30 mEq/L (21-27) H 04/12/18 22:34 Chloride 109 mEq/L (98-107) H 04/23/18 03:40 BUN 38 mg/dL (8-23) H 04/23/18 03:40 Creatinine 1.50 mg/dL (0.60-1.20) H 04/23/18 03:40 Est GFR ( Amer) 42 (> 60) L 04/23/18 03:40 Est GFR (Non-Af Amer) 35 (> 60) L 04/23/18 03:40 Glucose 68 mg/dL (70-105) L 04/23/18 03:40 POC Glucose 165 mg/dL (70-99) H 04/21/18 21:06 Hemoglobin A1c 6.8 % (-5.6) H 03/26/18 06:14 Calculated Osmolality 301 (280-300) H 04/23/18 03:40 Calcium 8.2 mg/dL (8.6-10.3) L 04/23/18 03:40 Venous Ioniz Calcium 0.98 mmol/L (1.15-1.35) L 04/15/18 15:55 Magnesium 1.3 mg/dL (1.6-2.6) L 04/22/18 04:38 Iron < 10 mcg/dL (50-170) L 03/29/18 05:53 Transferrin 158 mg/dL (203-362) L 03/29/18 05:53 ALT 95 Units/L (7-52) H 04/19/18 06:20 Alkaline Phosphatase 202 Units/L (34-104) H 04/19/18 06:20 Troponin I 0.06 ng/mL (< 0.04) H* 04/13/18 03:20 B-Natriuretic Peptide 185 pg/mL (Less than 100) H 03/25/18 00:59 Serum Total Protein 5.3 g/dL (6.4-8.9) L 04/19/18 06:20 Albumin 2.4 g/dL (3.5-5.7) L 04/19/18 06:20 Albumin/Globulin Ratio 0.8 (1.1-2.2) L 04/19/18 06:20 Urine Clarity Hazy (Clear) A 04/11/18 20:37 Ur Leukocyte Esterase Small (Negative) H 04/11/18 20:37 Urine Microscopic RBC 3-5 per hpf (0-3) H 03/27/18 04:15 Urine Microscopic WBC 15-30 per hpf (0-3) H 04/11/18 20:37 Ur Squamous Epith Cells Many per lpf (None-Few) H 04/11/18 20:37 Urine Bacteria Many per hpf (None-Few) H 04/11/18 20:37 Urine Yeast Many per hpf (None Seen) H 04/11/18 20:37 Ur Culture Indicated? NO. (NO) A 04/11/18 20:37 Stl C. diff Tox B Gene Positive (Negative) A 03/26/18 20:10 Stl C. diff Tox A/B PCR See reflex test (Not detect) A 03/26/18 20:10 Vancomycin Trough 19 mcg/mL (5-10) H 04/19/18 06:20 EKTA Screen DETECTED (None Detected) A 04/05/18 14:52 EKTA Titer 1:160 (<1:80) H 04/05/18 14:52 Mitochondria M2 IgG Ab 45.3 Units (0.0-20.0) H 04/05/18 14:52 Hepatitis A Ab Total POSITIVE (Negative) A 04/12/18 17:14 Mycoplasma pneumon IgG 0.48 U/L (<=0.09) H 04/05/18 12:12 - Clinical Findings Intake & Output: Intake & Output 04/22/18 04/22/18 04/23/18 15:59 23:59 07:59 Intake Total 100 / 100 100 / 100 Output Total 300 / 300 550 / 550 Balance -200 / -200 -450 / -450 Consult Discharge Plan - Plan Referrals: Kathy Acosta DO [Resident] - 04/26/18 10:00 am
[2018-04-23] MEDS ORDERED: Furosemide 40 MG/4 ML VIAL ONE (07:55)
[2018-04-23 08:05] LABS: ABG Base Excess 3 mEq/L (-2 to 3); ABG HCO3 29 mEq/L (21-27); ABG Oxygen Saturation 81 % (95-98); ABG PCO2 51 mmHg (35-45); ABG PH 7.36 pH Units (7.32-7.45); ABG PO2 48 mmHg (85-104); ABG TCO2 30 mEq/L (20-26)
[2018-04-23] MEDS: Furosemide 40 MG/4 ML VIAL IVP ONE ×2 (08:05→08:13)
[2018-04-23] MEDS: Insulin LISPRO 300 UNITS/3 ML VIAL SQ SCH ×4 (08:11→22:48)
[2018-04-23] MEDS ORDERED: methylPREDNISolone 125 MG/2 ML VIAL IVP ONE (08:14)
[2018-04-23] MEDS ORDERED: methylPREDNISolone 125 MG/2 ML VIAL ONE (08:17)
[2018-04-23] MEDS: Beclomethasone 40mcg REDIHALER IH SCH ×2 (08:23→20:19)
[2018-04-23] MEDS: Gabapentin 100 MG CAPSULE PO SCH ×3 (08:54→20:01)
[2018-04-23] MEDS: amLODIPine 5 MG TABLET PO SCH (08:54)
[2018-04-23] MEDS: Metoprolol 100 MG TABLET PO SCH ×2 (08:54→20:00)
[2018-04-23] MEDS: Lactobacillus 1 EACH CAP.SPRINK PO SCH ×2 (08:54→20:00)
[2018-04-23] MEDS: predniSONE 20 MG TABLET PO SCH (08:54)
[2018-04-23] MEDS: Sucralfate 1 GM TABLET PO SCH ×3 (08:54→18:33)
[2018-04-23] MEDS: Aspirin 81 MG TAB.CHEW PO SCH (08:54)
[2018-04-23] MEDS: Piperacillin/Tazobactam 3.375 GM in 0.9 % Sodium Chloride Mini Bag 100 ML IVPB SCH ×2 (08:55→18:33)
[2018-04-23] MEDS: Furosemide 20 MG/2 ML VIAL IVP SCH ×2 (08:56→18:30)
[2018-04-23] MEDS ORDERED: Furosemide 20 MG/2 ML VIAL IVP SCH (09:00)
[2018-04-23] MEDS: Simethicone 80 MG TAB.CHEW PO PRN ×2 (09:02→20:01)
[2018-04-23] MEDS: Vancomycin Oral Soln 125 MG/2.5 ML UDC PO SCH ×4 (09:03→20:01)
[2018-04-23] MEDS: MethylPREDNISolone 40 MG/ML VIAL IVP SCH ×2 (12:57→18:33)
--- NOTE | 2018-04-23 13:15 | Infectious Disease Progress No ---
Date of Encounter: 04/23/18 Time of Encounter: 09:40 - Assessment and Plan (1) Sepsis Current Visit: No Status: Acute Progressed to septic shock requiring vasopressors with end organ damage. Likely secondary to pneumonia and Hepatitis A. WBC back up a little today, but could be secondary to steroids. Vasopressors off. Hypothermia has resolved. Blood cultures obtained 03/25/18 are negative 2 sets. Repeat blood cultures drawn 04/11/18 are negative x 2 sets. Qualifiers: Sepsis type: sepsis due to unspecified organism Qualified Code(s): A41.9 - Sepsis, unspecified organism (2) Pneumonia Current Visit: Yes Status: Acute Location: Multifocal, greatest in the left lower lobe. Causative organism: Unclear. No evidence of aspiration noted on exam. Respiratory infectious panel was negative. Strep pneumococcal and legionella urinary antigens were negative. The patient has been able to provide us with 2 sputum cultures that are both negative. CT chest 04/08/18 showed improvement, but CT abdomen and pelvis 04/11/18 showed persistent LLL pneumonia. Completed 12 days of Zosyn and 6 days of Vanc. About underlying pneumonia cannot be excluded. The radiologist interpreted as worsening since previous exam. Clinically, patient appears to have improved. She is requiring less oxygen and is more alert. CT of the chest completed 04/18/18 showed increasing multifocal airspace disease suggesting pneumonia. Pulmonology re-evaluation noted and appreciated. CXR 04/23/18 showed resolving PNA. Vancomycin stopped by the primary team (completed 8 days) Continue Zosyn 3.375 grams IV Q8H. (day 12) Continue Vancomycin IV. Pharmacy to dose. Goal trough ~15. Duration of treatment depends on the clinical picture. Monitor renal function and for drug toxicity and dose-adjust antibiotics. Qualifiers: Pneumonia type: due to unspecified organism Laterality: bilateral Lung location: lower lobe of lung Qualified Code(s): J18.1 - Lobar pneumonia, unspecified organism (3) C. difficile colitis Current Visit: Yes Status: Acute Severe. Clinically, the patient's stools are more formed, but she is still stooling several times per day. Repeat CT of the abdomen and pelvis showed findings consistent with ileus and gastroenteritis on 04/08/[address] of the abdomen and pelvis 04/11/18 did not show any bowel thickening or toxic megacolon, but radiologist reports concern for ischemic bowel due to severe calcification of the mesenteric circulation. Status post colonoscopy 04/12/18 that was negative for pseudomembranous or toxic megacolon. IV Flagyl stopped by the primary team. Continue Vancomycin 125mg PO QID. (day 27). Duration of treatment depends on the clinical picture. Will likely continue treatment until other antibiotics are stopped. (4) Abdominal pain Current Visit: Yes Status: Resolved Secondary to C diff colitis and gastroenteritis and Hepatitis A. GI consulted. Appreciate recommendations. LFTs this morning markedly elevated and lactic acid 9. CT abdomen and pelvis on 04/03/2018: Cholelithiasis, small amount of gas within the bladder. Decreased small bowel distention with small bowel wall thickening in the left upper quadrant; no toxic megacolon. Repeat CT of the abdomen and pelvis 04/11/18 showed findings concerning for ischemic bowel. Status post colonoscopy 04/12/15 that was negative for pseudomembranous colitis or toxic megacolon. Improved. Qualifiers: Abdominal location: generalized Qualified Code(s): R10.84 - Generalized abdominal pain (5) Rectal bleeding Current Visit: Yes Status: Resolved Patient started having bloody stools overnight. Etiology unclear. Not sure that it is from the C. diff since her stools are formed. Status post colonoscopy 04/12/18 that was negative for bleeding. Appears resolved. Management and transfusion parameters per the primary team. (6) Elevated transaminase level Current Visit: Yes Status: Resolved Likely secondary to Hepatitis A vs. shock liver. Resolved. Continue supportive care. (7) Lactic acidosis Current Visit: Yes Status: Resolved Likely secondary to sepsis. Improved. (8) Acute kidney injury Current Visit: Yes Status: Acute Etiology unclear. Serum creatinine trending down. Nephrology consulted and signed off. Continue to trend. CRRT started 04/12/18, discontinued 04/15/18. (9) Hepatitis A Current Visit: Yes Status: Acute Hepatitis A antibody positive. Likely contributing to the elevated LFTs. Continue to trend LFTs and continue supportive care. Qualifiers: Hepatic coma status: without hepatic coma Qualified Code(s): B15.9 - Hepatitis A without hepatic coma - Subjective Interval history: Patient seen and examined. Overnight events noted. Patient became hypoxic and had hypoglycemia this morning. Currently on Bipap. Somewhat lethargic this morning, but does awaken and participates somewhat in the exam. ROS limited due to patient being on the BIPAP. Infect Dis PN-Objective Data - Labs CBC & Chem 7: 04/23/18 03:40 04/23/18 03:40 Labs: Laboratory Results - last 24 hr 04/22/18 04/22/18 04/22/18 07:20 07:22 11:17 WBC RBC Hgb Hct MCV MCH MCHC RDW Plt Count MPV Immature Gran % Seg Neutrophils % Lymphocytes % Monocytes % Eosinophils % Basophils % Neutrophils # Lymphocytes # Monocytes # Eosinophils # Basophils # Nucleated RBCs/100 WBC ABG pH ABG pCO2 ABG pO2 ABG HCO3 ABG Total CO2 ABG O2 Saturation ABG Base Excess O2 Delivery Device Inspired O2 Sodium Potassium Chloride Carbon Dioxide BUN Creatinine Est GFR ( Amer) Est GFR (Non-Af Amer) BUN/Creatinine Ratio Glucose POC Glucose 58 L 64 L 150 H Calculated Osmolality Calcium 04/22/18 04/22/18 04/23/18 15:58 22:10 03:40 WBC 20.9 H RBC 3.50 L Hgb 8.8 L Hct 29.3 L MCV 83.7 MCH 25.1 L MCHC 30.0 L RDW 22.4 H Plt Count 206 MPV 12.4 Immature Gran % 0.5 Seg Neutrophils % 89.7 Lymphocytes % 6.4 Monocytes % 3.0 Eosinophils % 0.3 Basophils % 0.1 Neutrophils # 18.8 H Lymphocytes # 1.4 Monocytes # 0.6 Eosinophils # 0.1 Basophils # 0.0 Nucleated RBCs/100 WBC 0.1 H ABG pH ABG pCO2 ABG pO2 ABG HCO3 ABG Total CO2 ABG O2 Saturation ABG Base Excess O2 Delivery Device Inspired O2 Sodium Potassium Chloride Carbon Dioxide BUN Creatinine Est GFR ( Amer) Est GFR (Non-Af Amer) BUN/Creatinine Ratio Glucose POC Glucose 149 H 242 H Calculated Osmolality Calcium 04/23/18 04/23/18 04/23/18 03:40 08:01 08:04 WBC RBC Hgb Hct MCV MCH MCHC RDW Plt Count MPV Immature Gran % Seg Neutrophils % Lymphocytes % Monocytes % Eosinophils % Basophils % Neutrophils # Lymphocytes # Monocytes # Eosinophils # Basophils # Nucleated RBCs/100 WBC ABG pH 7.36 ABG pCO2 51 H ABG pO2 48 L* ABG HCO3 29 H ABG Total CO2 30 H ABG O2 Saturation 81 L ABG Base Excess 3 O2 Delivery Device Oxy Mask Inspired O2 15.0 Sodium 142 Potassium 3.6 Chloride 109 H Carbon Dioxide 26 BUN 38 H Creatinine 1.50 H Est GFR ( Amer) 42 L Est GFR (Non-Af Amer) 35 L BUN/Creatinine Ratio 25 Glucose 68 L POC Glucose 134 H Calculated Osmolality 301 H Calcium 8.2 L Cultures: Cultures 04/11/18 11:55 Blood Culture - Final Peripheral Venipuncture No growth. Final report. 04/11/18 11:53 Blood Culture - Final Peripheral Venipuncture No growth. Final report. 04/05/18 13:38 Sputum Culture - Final Sputum 04/05/18 16:38 Sputum Culture - Final Sputum 03/27/18 04:15 Legionella Antigen - Final Urine,[place] Streptococcus pneumoniae Antigen (M - Final Serology 04/17/18 04/12/18 04/11/18 Range/Units 03:50 17:14 20:37 Urine Color Dark Yellow (Yellow) Urine Clarity Hazy A (Clear) Urine pH 5.0 (5.0-8.0) pH Units Ur Specific [place] 1.018 (1.010-1.025) Urine Protein Trace (Neg-Trace) mg/dL Urine Glucose (UA) Normal (Normal) mg/dL Urine Ketones Negative (Negative) mg/dL Urine Blood Negative (Negative) Urine Nitrite Negative (Negative) Urine Bilirubin Negative (Negative) Urine Urobilinogen Normal (Normal) mg/dL Ur Leukocyte Esterase Small H (Negative) Urine Microscopic RBC (0-3) per hpf Urine Microscopic WBC 15-30 H (0-3) per hpf Ur Squamous Epith Cells Many H (None-Few) per lpf Urine Bacteria Many H (None-Few) per hpf Hyaline Casts Few (None-Few) per lpf Urine Yeast Many H Ur Culture Indicated? NO. A (NO) Nasal Screen MRSA (PCR) (Negative) Stl C. cayetanensis PCR (Not detect) Stool Rotavirus A PCR (Not detect) Stl Adenov F 40/41 PCR (Not detect) Stool Astrovirus (PCR) (Not detect) Stool Campylobacter PCR (Not detect) Stl C. diff Tox B Gene (Negative) Stl C. diff Tox A/B PCR (Not detect) Stool Cryptosporidium PCR (Not detect) Stl Sh Tox Pr E STEC PCR (Not detect) Stool E coli O157 PCR (Not detect) Stl Enterotoxigenic E PCR (Not detect) Stool EPEC (PCR) (Not detect) Stool EAEC (PCR) (Not detect) Stl E. histolytica PCR (Not detect) Stool Giardia Lamblia PCR (Not detect) Stool Salmonella PCR (Not detect) Stool Sapovirus (PCR) (Not detect) Stl P. shigelloides PCR (Not detect) Stl Shigella/EIEC PCR (Not detect) St Y.enterocolitica PCR (Not detect) Stool Vibrio (PCR) (Not detect) Stl Vibrio cholerae PCR (Not detect) Stl Norovirus GI/GII PCR (Not detect) Stl GI Panel (PCR) Com Chlamy pneumoniae PCR (Not Detect) Adenovirus (PCR) (Not Detect) B. pertussis DNA (PCR) (Not Detect) B.parapertussis DNA PCR (Not Detect) Coronavirus OC43 (PCR) (Not Detect) Coronavirus HKU1 (PCR) (Not Detect) Coronavirus 229E (PCR) (Not Detect) Coronavirus NL63 (PCR) (Not Detect) Hepatitis A IgM Ab Nonreactive (Nonreactive) Hepatitis A Ab Total POSITIVE A (Negative) Hep Bs Antigen Nonreactive (Nonreactive) Hep B Core IgM Ab Nonreactive (Nonreactive) Hepatitis C Ab Screen Nonreactive (Nonreactive) Human Metapneumovir PCR (Not Detect) Influenza A (H1) PCR (Not Detect) Influ A (H1N1/09) PCR (Not Detect) Influenza A (H3) PCR (Not Detect) Influenza A Untype (PCR) (Not Detect) Influenza Type B (PCR) (Not Detect) Mycoplasma pneumon IgG (<=0.09) U/L Mycoplasma pneumon IgM (<=0.76) U/L M.pneumoniae DNA (PCR) (Not Detect) Parainfluenza 1 (PCR) (Not Detect) Parainfluenza 2 (PCR) (Not Detect) Parainfluenza 3 (PCR) (Not Detect) Parainfluenza 4 (PCR) (Not Detect) RSV (PCR) (Not Detect) Entero/Rhino (PCR) (Not Detect) 04/05/18 04/05/18 04/05/18 Range/Units 12:12 09:20 09:20 Urine Color (Yellow) Urine Clarity (Clear) Urine pH (5.0-8.0) pH Units Ur Specific [place] (1.010-1.025) Urine Protein (Neg-Trace) mg/dL Urine Glucose (UA) (Normal) mg/dL Urine Ketones (Negative) mg/dL Urine Blood (Negative) Urine Nitrite (Negative) Urine Bilirubin (Negative) Urine Urobilinogen (Normal) mg/dL Ur Leukocyte Esterase (Negative) Urine Microscopic RBC (0-3) per hpf Urine Microscopic WBC (0-3) per hpf Ur Squamous Epith Cells (None-Few) per lpf Urine Bacteria (None-Few) per hpf Hyaline Casts (None-Few) per lpf Urine Yeast Ur Culture Indicated? (NO) Nasal Screen MRSA (PCR) Negative (Negative) Stl C. cayetanensis PCR (Not detect) Stool Rotavirus A PCR (Not detect) Stl Adenov F 40/41 PCR (Not detect) Stool Astrovirus (PCR) (Not detect) Stool Campylobacter PCR (Not detect) Stl C. diff Tox B Gene (Negative) Stl C. diff Tox A/B PCR (Not detect) Stool Cryptosporidium PCR (Not detect) Stl Sh Tox Pr E STEC PCR (Not detect) Stool E coli O157 PCR (Not detect) Stl Enterotoxigenic E PCR (Not detect) Stool EPEC (PCR) (Not detect) Stool EAEC (PCR) (Not detect) Stl E. histolytica PCR (Not detect) Stool Giardia Lamblia PCR (Not detect) Stool Salmonella PCR (Not detect) Stool Sapovirus (PCR) (Not detect) Stl P. shigelloides PCR (Not detect) Stl Shigella/EIEC PCR (Not detect) St Y.enterocolitica PCR (Not detect) Stool Vibrio (PCR) (Not detect) Stl Vibrio cholerae PCR (Not detect) Stl Norovirus GI/GII PCR (Not detect) Stl GI Panel (PCR) Com Chlamy pneumoniae PCR Not Detected (Not Detect) Adenovirus (PCR) Not Detected (Not Detect) B. pertussis DNA (PCR) Not Detected (Not Detect) B.parapertussis DNA PCR Not Detected (Not Detect) Coronavirus OC43 (PCR) Not Detected (Not Detect) Coronavirus HKU1 (PCR) Not Detected (Not Detect) Coronavirus 229E (PCR) Not Detected (Not Detect) Coronavirus NL63 (PCR) Not Detected (Not Detect) Hepatitis A IgM Ab (Nonreactive) Hepatitis A Ab Total (Negative) Hep Bs Antigen (Nonreactive) Hep B Core IgM Ab (Nonreactive) Hepatitis C Ab Screen (Nonreactive) Human Metapneumovir PCR Not Detected (Not Detect) Influenza A (H1) PCR Not Detected (Not Detect) Influ A (H1N1/09) PCR Not Detected (Not Detect) Influenza A (H3) PCR Not Detected (Not Detect) Influenza A Untype (PCR) Not Detected (Not Detect) Influenza Type B (PCR) Not Detected (Not Detect) Mycoplasma pneumon IgG 0.48 H (<=0.09) U/L Mycoplasma pneumon IgM 0.13 (<=0.76) U/L M.pneumoniae DNA (PCR) Not Detected (Not Detect) Parainfluenza 1 (PCR) Not Detected (Not Detect) Parainfluenza 2 (PCR) Not Detected (Not Detect) Parainfluenza 3 (PCR) Not Detected (Not Detect) Parainfluenza 4 (PCR) Not Detected (Not Detect) RSV (PCR) Not Detected (Not Detect) Entero/Rhino (PCR) Not Detected (Not Detect) 03/29/18 03/27/18 03/26/18 Range/Units 08:40 04:15 20:10 Urine Color Yellow (Yellow) Urine Clarity Clear (Clear) Urine pH 5.5 (5.0-8.0) pH Units Ur Specific [place] 1.023 (1.010-1.025) Urine Protein Negative (Neg-Trace) mg/dL Urine Glucose (UA) Normal (Normal) mg/dL Urine Ketones Negative (Negative) mg/dL Urine Blood Trace H (Negative) Urine Nitrite Negative (Negative) Urine Bilirubin Negative (Negative) Urine Urobilinogen Normal (Normal) mg/dL Ur Leukocyte Esterase Small H (Negative) Urine Microscopic RBC 3-5 H (0-3) per hpf Urine Microscopic WBC 5-15 H (0-3) per hpf Ur Squamous Epith Cells Many H (None-Few) per lpf Urine Bacteria None Seen (None-Few) per hpf Hyaline Casts Few (None-Few) per lpf Urine Yeast Test Not Performed Ur Culture Indicated? NO. A (NO) Nasal Screen MRSA (PCR) (Negative) Stl C. cayetanensis PCR (Not detect) Stool Rotavirus A PCR (Not detect) Stl Adenov F 40 PCR (Not detect) Stool Astrovirus (PCR) (Not detect) Stool Campylobacter PCR (Not detect) Stl C. diff Tox B Gene Positive A (Negative) Stl C. diff Tox A/B PCR (Not detect) Stool Cryptosporidium PCR (Not detect) Stl Sh Tox Pr E STEC PCR (Not detect) Stool E coli O157 PCR (Not detect) Stl Enterotoxigenic E PCR (Not detect) Stool EPEC (PCR) (Not detect) Stool EAEC (PCR) (Not detect) Stl E. histolytica PCR (Not detect) Stool Giardia Lamblia PCR (Not detect) Stool Salmonella PCR (Not detect) Stool Sapovirus (PCR) (Not detect) Stl P. shigelloides PCR (Not detect) Stl Shigella/EIEC PCR (Not detect) St Y.enterocolitica PCR (Not detect) Stool Vibrio (PCR) (Not detect) Stl Vibrio cholerae PCR (Not detect) Stl Norovirus GI/GII PCR (Not detect) Stl GI Panel (PCR) Com Chlamy pneumoniae PCR (Not Detect) Adenovirus (PCR) (Not Detect) B. pertussis DNA (PCR) (Not Detect) B.parapertussis DNA PCR (Not Detect) Coronavirus OC43 (PCR) (Not Detect) Coronavirus HKU1 (PCR) (Not Detect) Coronavirus 229E (PCR) (Not Detect) Coronavirus NL63 (PCR) (Not Detect) Hepatitis A IgM Ab (Nonreactive) Hepatitis A Ab Total (Negative) Hep Bs Antigen (Nonreactive) Hep B Core IgM Ab (Nonreactive) Hepatitis C Ab Screen (Nonreactive) Human Metapneumovir PCR (Not Detect) Influenza A (H1) PCR (Not Detect) Influ A (H1N1/09) PCR (Not Detect) Influenza A (H3) PCR (Not Detect) Influenza A Untype (PCR) (Not Detect) Influenza Type B (PCR) (Not Detect) Mycoplasma pneumon IgG 0.30 H (<=0.09) U/L Mycoplasma pneumon IgM 0.06 (<=0.76) U/L M.pneumoniae DNA (PCR) (Not Detect) Parainfluenza 1 (PCR) (Not Detect) Parainfluenza 2 (PCR) (Not Detect) Parainfluenza 3 (PCR) (Not Detect) Parainfluenza 4 (PCR) (Not Detect) RSV (PCR) (Not Detect) Entero/Rhino (PCR) (Not Detect) 03/26/18 Range/Units 20:10 Urine Color (Yellow) Urine Clarity (Clear) Urine pH (5.0-8.0) pH Units Ur Specific [place] (1.010-1.025) Urine Protein (Neg-Trace) mg/dL Urine Glucose (UA) (Normal) mg/dL Urine Ketones (Negative) mg/dL Urine Blood (Negative) Urine Nitrite (Negative) Urine Bilirubin (Negative) Urine Urobilinogen (Normal) mg/dL Ur Leukocyte Esterase (Negative) Urine Microscopic RBC (0-3) per hpf Urine Microscopic WBC (0-3) per hpf Ur Squamous Epith Cells (None-Few) per lpf Urine Bacteria (None-Few) per hpf Hyaline Casts (None-Few) per lpf Urine Yeast Ur Culture Indicated? (NO) Nasal Screen MRSA (PCR) (Negative) Stl C. cayetanensis PCR Not detected (Not detect) Stool Rotavirus A PCR Not detected (Not detect) Stl Adenov F 40/41 PCR Not detected (Not detect) Stool Astrovirus (PCR) Not detected (Not detect) Stool Campylobacter PCR Not detected (Not detect) Stl C. diff Tox B Gene (Negative) Stl C. diff Tox A/B PCR See reflex test A (Not detect) Stool Cryptosporidium PCR Not detected (Not detect) Stl Sh Tox Pr E STEC PCR Not detected (Not detect) Stool E coli O157 PCR Not detected (Not detect) Stl Enterotoxigenic E PCR Not detected (Not detect) Stool EPEC (PCR) Not detected (Not detect) Stool EAEC (PCR) Not detected (Not detect) Stl E. histolytica PCR Not detected (Not detect) Stool Giardia Lamblia PCR Not detected (Not detect) Stool Salmonella PCR Not detected (Not detect) Stool Sapovirus (PCR) Not detected (Not detect) Stl P. shigelloides PCR Not detected (Not detect) Stl Shigella/EIEC PCR Not detected (Not detect) St Y.enterocolitica PCR Not detected (Not detect) Stool Vibrio (PCR) Not detected (Not detect) Stl Vibrio cholerae PCR Not detected (Not detect) Stl Norovirus GI/GII PCR Not detected (Not detect) Stl GI Panel (PCR) Com See below Chlamy pneumoniae PCR (Not Detect) Adenovirus (PCR) (Not Detect) B. pertussis DNA (PCR) (Not Detect) B.parapertussis DNA PCR (Not Detect) Coronavirus OC43 (PCR) (Not Detect) Coronavirus HKU1 (PCR) (Not Detect) Coronavirus 229E (PCR) (Not Detect) Coronavirus NL63 (PCR) (Not Detect) Hepatitis A IgM Ab (Nonreactive) Hepatitis A Ab Total (Negative) Hep Bs Antigen (Nonreactive) Hep B Core IgM Ab (Nonreactive) Hepatitis C Ab Screen (Nonreactive) Human Metapneumovir PCR (Not Detect) Influenza A (H1) PCR (Not Detect) Influ A (H1N1/09) PCR (Not Detect) Influenza A (H3) PCR (Not Detect) Influenza A Untype (PCR) (Not Detect) Influenza Type B (PCR) (Not Detect) Mycoplasma pneumon IgG (<=0.09) U/L Mycoplasma pneumon IgM (<=0.76) U/L M.pneumoniae DNA (PCR) (Not Detect) Parainfluenza 1 (PCR) (Not Detect) Parainfluenza 2 (PCR) (Not Detect) Parainfluenza 3 (PCR) (Not Detect) Parainfluenza 4 (PCR) (Not Detect) RSV (PCR) (Not Detect) Entero/Rhino (PCR) (Not Detect) - Impressions Impressions Chest X-Ray 04/23/18 07:53 IMPRESSION: Decreased size of small left pleural effusion with slight improvement of the left lower lobe opacity compared to prior examination suggesting resolving pneumonia. Mild improving patchy airspace disease in both lungs suggesting improving multifocal pneumonia. D/ / Gregor Reyna MD / Gregor Reyna MD Interpreting Provider: Gregor Reyna MD Exam - Constitutional Vitals: Temp Pulse Resp BP Pulse Ox 97.3 F L 72 22 139/69 100 04/23/18 11:40 04/23/18 11:40 04/23/18 11:40 04/23/18 11:40 04/23/18 11:40 General appearance: average body habitus, cooperative, no acute distress - Head Head exam: Present: atraumatic, normal inspection, normocephalic - Eye Eye exam: Present: EOMI, normal appearance, PERRL Pupils: Present: normal accommodation - ENT ENT exam: Present: mucous membranes moist - Neck Neck exam: Present: normal inspection - Respiratory Respiratory exam: Present: decreased breath sounds (throughout). Absent: rhonchi, wheezes - Cardiovascular Cardiovascular exam: Present: RRR, +S1, +S2 - GI/Abdominal GI/Abdominal exam: Present: normal bowel sounds, soft, tenderness (generalized) . Absent: distended Additional comments: Chandra catheter noted to be draining clear yellow urine. - Extremities Exam Extremities exam: Present: normal inspection. Absent: joint swelling, pedal edema, tenderness - Neurological Exam Neurological exam: Present: altered (Lethargic, but awaken easily). Absent: no focal deficits (Paralysis noted to the RLE and decreased motor and sensation noted to the RUE.) - Psychiatric Psychiatric exam: Present: normal affect, normal mood - Skin Skin exam: Present: dry, intact, normal color, warm Consult Discharge Plan - Plan Referrals: Kathy Acosta DO [Resident] - 04/26/18 10:00 am - Attending Attestation I examined this patient and my medical decision-making was reviewed with the Resident Physician. I agree with the documented findings, disposition and treatment plan as described except to the extent set forth below.
--- NOTE | 2018-04-23 15:40 | Internal Med Progress Note ---
<Luecro Salas - Last Filed: 04/23/18 15:34> Hospitalist Progress Note - Encounter Date of Encounter: 04/23/18 Time of Encounter: 09:40 - Subjective Interval History: Ms. Lauren was examined at bedside this morning. She was laying in bed with the Bipap on. Earlier this morning her oxygenation down to 80%, she was not very symptomatic at the time. ABG was ordered and showed PaO2 of 46. Her pH was 7.36 while her PaCO2 was not extremely elevated, it was 51 with bicarb of 29, showing a more of a hypoxic condition. She had no events overnight. Her blood pressure had remained stable overnight. Today her hemoglobin was 8.8 and has remained stable the past 5 days. She had episodes of emesis. She continues to have several episodes of bowel movements, although more formed now. She denied any abdominal pain, nausea, emesis, fever, chills or chest pain. - Exam Vitals: Temp Pulse Resp BP Pulse Ox 97.3 F L 72 22 139/69 100 04/23/18 11:40 04/23/18 11:40 04/23/18 11:40 04/23/18 11:40 04/23/18 11:40 Exam: Constitutional: Alert, laying in bed, on Bipap HEENT: Normocephalic, atraumatic, moist mucus membranes Heart: Normal, regular rate and rhythm, no murmurs Lungs: Crackles at bilateral lower lung bases, no wheezing or rhonchi Abdomen: Soft, normal bowel sounds, non tender Extremities: No edema of lower extremity or upper extremities, warm, nontender Skin: Skin warm and dry, no lesions, no rashes, no jaundice Psych: thought content congruent, appropriate affect Neurological: Alert and oriented x 3, 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 Recently had hypoxic event with PaO2 of 46. She has required BiPAP and has been oxygenating well. Plan: -Continue with duoneb Q4h prn -Continue to wean O2 supplementation -Continue mucinex -Changed prednisone taper to 40 mg IV Q6H -Pulmonology consulted (2) Pneumonia Current Visit: Yes Status: Suspected Assessment and Plan: CT chest on 04/03 showed multifocal PNA, greatest in the LLL. Patient had worsening left-sided infiltrates on 04/13. Repeat CT on 04/18/18 showed increasing multifocal airspace disease suggesting pneumonia and small pleural effusions. Acute hypoxic exacerbation, chest xray looks better than previous with decreased opacity. Plan: -Continue zosyn (day 12 since restarted, received 12 days previously) -IV vancomycin stopped given her poor renal function and has received 8 days of dose, her MRSA swab is negative -Renally dose antibiotics -Pulmonology consulted -Continue mucinex -Awaiting further recommendations for antibiotic dosing (3) C. difficile colitis Current Visit: Yes Status: Acute Assessment and Plan: Diarrhea ongoing, hepatitis A IgM is negative so acute phase of hepatitis A is resolved. Continues to have many bowel movements daily, although more formed. She did not show any evidence of pseudomembranous colitis and toxic megacolon during sigmoidoscopy on 04/12. Plan: -ID recommends continuing oral vancomycin, day 27 -Duration of treatment per Infectious disease -Continue to monitor stool for changes in consistency -Continue probiotics -Continue to monitor vitals and CBC (4) Diabetes type 2, controlled Current Visit: Yes Status: Chronic Assessment and Plan: Her glucose today was 68 this morning With the Bipap she is not having good intake today Plan: Decreased long acting glucose from 20 to 10 today Encourage dietary intake Continue sliding scale Continue to monitor (5) Anemia Current Visit: Yes Status: Suspected Assessment and Plan: Hemoglobin 8.8 today and stable for the past 5 days. Plan: Continue to monitor Further GI work up as outpatient. (6) Pulmonary nodule Current Visit: Yes Status: Acute Assessment and Plan: CT of the chest noted a small lobulated nodule on the right upper lung lobe posteriorly Plan: Need to be followed to resolution after pneumonia resolves outpatient (7) Hepatitis A Current Visit: Yes Status: Acute Assessment and Plan: Tested positive on 04/12. Because of the long incubation period of hepatis A she may have had hepatitis A prior to admission but liver enzymes worsened on 04/12. She had Hep A antibody positive on 04/12 and repeat Hep A IgM was negative on , so no active Hep A infection. Plan: Continue to monitor (8) Sepsis Current Visit: Yes Status: Resolved Assessment and Plan: Resolved. She progressed to septic shock on 04/12 and required vasopressors for one day. Her blood cultures remained negative. Likely source secondary to pneumonia and hepatitis A. Blood cultures negative from 03/25 and negative 04/11. Plan: Continue pneumonia management, ID recommends continuing zosyn--day 12 total doses Continue monitoring vitals Repeat chest xray on 04/17 shows bibasilar consolidation Chest xray today shows decresed left leural effusin with improvement of the left lower lobe opacity CT chest on 04/18 shows increased multifocal airspace disease suggesting pneumonia CBC in the morning (9) Shock liver Current Visit: Yes Status: Resolved (10) NIGEL (acute kidney injury) Current Visit: Yes Status: Acute (11) Hypertension Current Visit: Yes Status: Acute Assessment and Plan: Was elevated the past two days and restarted on 10 mg amlodapine. She is also started on 40 mg IV furosemide BID. Plan: Continue 10 mg amlodapine Continue 40 mg IV BID Continue to monitor (12) Abdominal distension (gaseous) Current Visit: Yes Status: Acute Assessment and Plan: KUB showed nonspecific bowel gas pattern with no evidence for obstruction and severe atherosclerotic disease. Plan: Stopped immodium yesterday Continue simethicone PRN (13) DVT prophylaxis Current Visit: Yes Status: Acute Assessment and Plan: SubQ heparin (14) Acute and chronic respiratory failure Current Visit: Yes Status: Acute Assessment and Plan: Likely due to volume overload, CHF exacerbation. She was sitting in bed and it was noted her oxygenation was 80%. She was mostly asymptomatic but complained of being tired. Her ABG showed PaO2 of 46, pH was 7.36 while her PaCO2 was 51 with bicarb of 29. She has required BiPAP and has been oxygenating well. Plan: -Continue BiPAP but remove it for meals -Continue with duoneb Q4h prn -Continue mucinex -Changed prednisone taper to 40 mg IV Q6H -40 mg IV furosemide BID -Pulmonology consulted - Time Spent with Patient Total time spent is greater than 50% in coordination of care (as documented) at patient's floor/unit and/or counseling patient: less than 15 minutes Plan of Care Discussed with: patient Internal Medicine: Result - Labs CBC & Chem 7: 04/23/18 03:40 04/23/18 03:40 Labs: Short CBC 04/23/18 Range/Units 03:40 WBC 20.9 H (4.3-11.1) K/mcL Hgb 8.8 L (11.5-15.4) g/dL Hct 29.3 L (35.3-44.9) % Plt Count 206 (140-400) K/mcL Neutrophils # 18.8 H (1.6-8.9) K/mcL BMP 04/23/18 03:40 Sodium 142 Potassium 3.6 Chloride 109 H Carbon Dioxide 26 BUN 38 H Creatinine 1.50 H Glucose 68 L Calcium 8.2 L - ABG Interpretation ABG results: ABG ABG pH 7.36 pH Units (7.32-7.45) 04/23/18 08:01 ABG pCO2 51 mmHg (35-45) H 04/23/18 08:01 ABG pO2 48 mmHg (85-104) L* 04/23/18 08:01 ABG O2 Saturation 81 % (95-98) L 04/23/18 08:01 PT/INR, D-dimer PT 13.2 Seconds (9.4-12.1) H 04/19/18 06:20 - Impressions Impressions Chest X-Ray 04/23/18 07:53 IMPRESSION: Decreased size of small left pleural effusion with slight improvement of the left lower lobe opacity compared to prior examination suggesting resolving pneumonia. Mild improving patchy airspace disease in both lungs suggesting improving multifocal pneumonia. D/ / Gregor Reyna MD / Gregor Reyna MD Interpreting Provider: Gregor Reyna MD Consult Discharge Plan - Plan Referrals: Kathy Acosta DO [Resident] - 04/26/18 10:00 am <Alex Parham - Last Filed: 04/23/18 16:40> Hospitalist Progress Note - Encounter Date of Encounter: 04/23/18 - Exam Vitals: Temp Pulse Resp BP Pulse Ox 97.5 F L 70 22 147/71 97 04/23/18 16:20 04/23/18 16:20 04/23/18 16:20 04/23/18 16:20 04/23/18 16:20 - Assessment and Plan (1) COPD (chronic obstructive pulmonary disease) Current Visit: Yes Status: Chronic (2) Pneumonia Current Visit: Yes Status: Suspected (3) C. difficile colitis Current Visit: Yes Status: Acute (4) Diabetes type 2, controlled Current Visit: Yes Status: Chronic (5) Anemia Current Visit: Yes Status: Suspected (6) Pulmonary nodule Current Visit: Yes Status: Acute (7) Hepatitis A Current Visit: Yes Status: Acute (8) Sepsis Current Visit: Yes Status: Resolved (9) DVT prophylaxis Current Visit: Yes Status: Acute (10) Shock liver Current Visit: Yes Status: Resolved (11) NIGEL (acute kidney injury) Current Visit: Yes Status: Acute (12) Hypertension Current Visit: Yes Status: Acute (13) Abdominal distension (gaseous) Current Visit: Yes Status: Acute (14) Acute and chronic respiratory failure Current Visit: Yes Status: Acute - Time Spent with Patient Total time spent is greater than 50% in coordination of care (as documented) at patient's floor/unit and/or counseling patient: Internal Medicine: Result - Labs CBC & Chem 7: 04/23/18 03:40 04/23/18 03:40 Labs: Short CBC 04/23/18 Range/Units 03:40 WBC 20.9 H (4.3-11.1) K/mcL Hgb 8.8 L (11.5-15.4) g/dL Hct 29.3 L (35.3-44.9) % Plt Count 206 (140-400) K/mcL Neutrophils # 18.8 H (1.6-8.9) K/mcL BMP 04/23/18 03:40 Sodium 142 Potassium 3.6 Chloride 109 H Carbon Dioxide 26 BUN 38 H Creatinine 1.50 H Glucose 68 L Calcium 8.2 L - ABG Interpretation ABG results: ABG ABG pH 7.36 pH Units (7.32-7.45) 04/23/18 08:01 ABG pCO2 51 mmHg (35-45) H 04/23/18 08:01 ABG pO2 48 mmHg (85-104) L* 04/23/18 08:01 ABG O2 Saturation 81 % (95-98) L 04/23/18 08:01 PT/INR, D-dimer PT 13.2 Seconds (9.4-12.1) H 04/19/18 06:20 - Impressions Impressions Chest X-Ray 04/23/18 07:53 IMPRESSION: Decreased size of small left pleural effusion with slight improvement of the left lower lobe opacity compared to prior examination suggesting resolving pneumonia. Mild improving patchy airspace disease in both lungs suggesting improving multifocal pneumonia. D/ / Gregor Reyna MD / Gregor Reyna MD Interpreting Provider: Gregor Reyna MD - Attending Attestation I examined this patient and my medical decision-making was reviewed with the Resident Physician Dr. Salas. I agree with the documented findings, disposition and treatment plan as described except to the extent set forth below. Ms. Lauren is a 63 year old female history of COPD on 3 L oxygen at home admitted here with Sepsis, Pneumonia, developed C. Diff colitis and respiratory failure was transferred to ICU and moved to [facility] again when pt got stablized. Since this morning pt become hypoxic again. She denied any CP. She i s alert, awake and O x 3 Gen: moderate Resp distress Chest: Diminished BS b/l, crackles + Rales + Heart: S1S2+ RRR Ext: No edema a/p 1. Acute on chronic hypoxic resp failure 2. Acute COPD exacerbation 3. Acute Pneumonia - bacterial 4. Sepsis Cont BiPAP for next 24 hrs Pulm on board cont IV Lasix 40mg BID CXR showed improving multi focal pneumonia Cont broad spec abx started on high dose IV steroids Duoneb 5. C. Diff colitis cont Vancomycin 6. Volume overload cont IV Lasix <Lucero Salas - Last Filed: 04/23/18 15:34> (1) COPD (chronic obstructive pulmonary disease) Qualifiers: COPD type: chronic bronchitis Chronic bronchitis type: mucopurulent Qualified Code(s): J41.1 - Mucopurulent chronic bronchitis (2) Pneumonia Qualifiers: Pneumonia type: due to other aerobic Gram-negative bacteria Laterality: bilateral Lung location: lower lobe of lung Qualified Code(s): J15.6 - Pneumonia due to other Gram-negative bacteria (4) Diabetes type 2, controlled Qualifiers: Diabetes mellitus mcc insulin use: with mcc use Diabetes mellitus complication status: with hyperglycemia Qualified Code(s): E11.65 - Type 2 diabetes mellitus with hyperglycemia; Z79.4 - alf (current) use of insulin (5) Anemia Qualifiers: Anemia type: iron deficiency Iron deficiency anemia type: chronic blood loss Qualified Code(s): D50.0 - Iron deficiency anemia secondary to blood loss ( chronic) (7) Hepatitis A Qualifiers: Hepatic coma status: without hepatic coma Qualified Code(s): B15.9 - Hepatitis A without hepatic coma (8) Sepsis Qualifiers: Sepsis type: sepsis due to unspecified organism Qualified Code(s): A41.9 - Sepsis, unspecified organism (11) Hypertension Qualifiers: Hypertension type: essential hypertension Qualified Code(s): I10 - Essential (primary) hypertension <Alex Parham - Last Filed: 04/23/18 16:40> (1) COPD (chronic obstructive pulmonary disease) Qualifiers: COPD type: chronic bronchitis Chronic bronchitis type: mucopurulent Qualified Code(s): J41.1 - Mucopurulent chronic bronchitis (2) Pneumonia Qualifiers: Pneumonia type: due to other aerobic Gram-negative bacteria Laterality: bilateral Lung location: lower lobe of lung Qualified Code(s): J15.6 - Pneumonia due to other Gram-negative bacteria (4) Diabetes type 2, controlled Qualifiers: Diabetes mellitus rn long term care insulin use: with rn long term care use Diabetes mellitus complication status: with hyperglycemia Qualified Code(s): E11.65 - Type 2 diabetes mellitus with hyperglycemia; 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
[2018-04-23] MEDS: *HR* Heparin 5,000 UNIT/ML VIAL SQ SCH (18:36)
[2018-04-23] MEDS: traZODone 50 MG TABLET PO SCH (20:01)
[2018-04-23] MEDS ORDERED: Insulin DETEMIR 100 UNIT/ML X5UNITS SQ SCH (21:00)
[2018-04-24] MEDS: Ipratropium/Albuterol Neb 3 ML IH SCH ×7 (00:20→23:44)
[2018-04-24] MEDS: Piperacillin/Tazobactam 3.375 GM in 0.9 % Sodium Chloride Mini Bag 100 ML IVPB SCH ×2 (00:52→08:02)
[2018-04-24] MEDS: MethylPREDNISolone 40 MG/ML VIAL IVP SCH ×3 (01:13→17:07)
[2018-04-24] MEDS: Acetaminophen 325 MG TABLET PO PRN (03:40)
[2018-04-24] MEDS: Simethicone 80 MG TAB.CHEW PO PRN ×3 (03:47→22:34)
[2018-04-24 04:22] LABS: Basophils % 0.1 %; Lymphocytes % 2.4 %; Monocytes % 0.8 %
[2018-04-24 04:23] LABS: Hematocrit 29.5 % (35.3-44.9); Hemoglobin 8.9 g/dL (11.5-15.4); Immature Granulocytes % 0.8 % (0-4); Immature Platelets 20.8 % (1.1-6.1); Lymphocytes # 0.6 K/mcL (0.6-4.6); Mean Corpuscular HGB Conc 30.2 g/dL (31.6-35.5); Mean Corpuscular Hemoglobin 25.3 pg (28.0-33.3); Mean Corpuscular Volume 83.8 fL (83.0-100.0); Monocytes # 0.2 K/mcL (0.0-1.3); Nucleated Red Blood Cells 0.1 /100 WBC (0); Platelet Count 234 K/mcL (140-400); Red Blood Count 3.52 M/mcL (3.82-4.97); Red Cell Distribution Width 22.2 % (11.5-14.5); Segmented Neutrophils % 95.9 %
[2018-04-24 04:37] LABS: Calcium 8.1 mg/dL (8.6-10.3); Potassium 4.2 mEq/L (3.5-5.1)
[2018-04-24 04:55] LABS: Neutrophils # 24.3 K/mcL (1.6-8.9)
[2018-04-24 04:57] LABS: Anisocytosis 3+ (Not Present)
[2018-04-24 04:58] LABS: Hypochromasia Present (Not Present); Macrocytosis Present (Not Present); Microcytosis Present (Not Present); Platelet Estimate Normal (Normal); Poikilocytosis 2+ (Not Present); Polychromasia 1+ (Not Present); Schistocytes 1+ (Not Present); Target Cells 1+ (Not Present)
[2018-04-24] MEDS: *HR* Heparin 5,000 UNIT/ML VIAL SQ SCH (05:58)
--- NOTE | 2018-04-24 07:37 | Pulmonology Progress Note ---
Date of Encounter: 04/24/18 Time of Encounter: 07:30 Assessment and Plan (1) Pneumonia Current Visit: Yes Status: Acute Patient had outpatient CT scan which was recently done in comparing with CT scan of April 08 looks like worsening airspace disease but looking at the CT abdomen which was done around April 11 where she decompensated into septic shock and multiorgan dysfunction syndrome with worsening left lower lobe infiltrates which was seen in the CT scan so the current CT scan assess sequelae of the worsened left-sided airspace disease which happened around April [address] scan shows no evidence of mucus plugging all the major lobar airways are open there is atelectasis with the airbronchogrmas on both bases. This is mostly multifactorial with pneumonia and patient being lying down lead to the atelectasis there is no evidence of mucus plugging which is causing this volume loss the patient clinically getting better and radiological changes lag behind i do not think bronchoscopy will help in the background of her clinical picture is improving . She needs to sit in the chair with incentive spirometry and flutter valve every 6 hours if she does not do that and keep lying on the bed and this atelectasis bibasilar will not improve. If her V/Q mismatch worsens will consider bronchoscopy at that point I spoke my recommendation to the primary team will be happy to discuss with infectious disease team. Continue diuresis as tolerated and she is 9 L positive. 04/23 Patient repeat chest x-ray today after worsening hypoxic respiratory failure showed improved left lower lobe consolidative opacity this rapid decompensation most likely due to fluid overload if she is not responding to diuresis will get a CT PE protocol to rule out any pulmonary embolism. Since there is no acute worsening of consolidation or lung collapse in the chest x- ray. To continue antibiotics as per ID. 04/24 Patient responded well to diuresis low supsicion for PE . Patient V/Q mismatch getting better patient will need to sit doing incentive spirometry and flutter valve . Patient will need atleast a 3 week taper of steroids .Antibiotics deescalation according to ID . will sign off calll with questions. Qualifiers: Pneumonia type: due to unspecified organism Laterality: bilateral Lung location: lower lobe of lung Qualified Code(s): J18.1 - Lobar pneumonia, unspecified organism (2) C. difficile colitis Current Visit: Yes Status: Acute Management according to infectious disease. (3) COPD (chronic obstructive pulmonary disease) Current Visit: Yes Status: Chronic Continue scheduled bronchodilators. Patient has more wheezing causing this V/ Q mismatch agree with primary team starting her on IV steroids. 04/24 Patient will need atleast a 3 week of steroid taper on discharge . Qualifiers: COPD type: chronic bronchitis Chronic bronchitis type: mucopurulent Qualified Code(s): J41.1 - Mucopurulent chronic bronchitis (4) Acute kidney injury Current Visit: Yes Status: Acute To continue diuresis as tolerated. Subjective Principal diagnosis: Sepsis Interval history: Patient didnt have any acute event events overnight. Pulmonary was consulted because the repeat CT scan chest showed worsening left-sided airspace disease. Patient was treated by me in ICU when she had worsening left lower lobe pneumonia and she responded well to the broad-spectrum antibiotics and now she is clinically lot better she still has some shortness of breath has some cough and sputum production but her oxygenation is improved denies any chest pain or chest tightness denies any fever or chills or constitutional symptoms. 04/23 during my morning rounds patient found to be hypoglycemic and hypoxic ABG showed some acute hypercarbia with profound hypoxia chest x-ray showed improved left lower lobe opacities and improving left-sided pleural effusion patient denies any chest pain chest tightness does not complain of much shortness of breath she was participating in history taking and review of systems denies any nausea vomiting she was not eating at the time, denies much cough or sputum production. 04/24 Patient responded well to diuresis her V/Q mismatch is getting better FIO2 is coming down. Objective PUL Vital signs: Last Vital Signs Temp 99 F 04/24/18 05:21 Pulse 84 04/24/18 05:21 Resp 16 04/24/18 05:21 BP 157/72 04/24/18 05:21 Pulse Ox 95 04/24/18 05:21 Auscultation: bilateral: diminished breath sounds (bibasilar diminished breadth sounds ), other (bibasilar crackles ) Results - Laboratory Findings CBC and BMP: 04/24/18 20:17 04/24/18 03:30 ABG ABG pH 7.36 pH Units (7.32-7.45) 04/23/18 08:01 ABG pCO2 51 mmHg (35-45) H 04/23/18 08:01 ABG pO2 48 mmHg (85-104) L* 04/23/18 08:01 ABG O2 Saturation 81 % (95-98) L 04/23/18 08:01 PT/INR, D-dimer PT 13.2 Seconds (9.4-12.1) H 04/19/18 06:20 Abnormal lab findings: Abnormal lab results WBC 25.3 K/mcL (4.3-11.1) H 04/24/18 03:30 RBC 3.52 M/mcL (3.82-4.97) L 04/24/18 03:30 Hgb 8.9 g/dL (11.5-15.4) L 04/24/18 03:30 Hct 29.5 % (35.3-44.9) L 04/24/18 03:30 MCH 25.3 pg (28.0-33.3) L 04/24/18 03:30 MCHC 30.2 g/dL (31.6-35.5) L 04/24/18 03:30 RDW 22.2 % (11.5-14.5) H 04/24/18 03:30 Neutrophils # 24.3 K/mcL (1.6-8.9) H 04/24/18 03:30 Nucleated RBCs/100 WBC 0.1 /100 WBC (0) H 04/24/18 03:30 Hyposegmented Neuts Present (Not Present) A 04/12/18 01:20 Reactive Lymphocytes Present (Not Present) A 04/18/18 03:25 Toxic Granulation Present (Not Present) A 04/17/18 03:50 Dohle Bodies Present (Not Present) A 04/12/18 22:15 Clumped Platelets Few (Not Present) A 04/12/18 01:20 Large Platelets Present (Not Present) A 04/12/18 22:15 Immature Plt Fraction 20.8 % (1.1-6.1) H 04/24/18 03:30 Polychromasia 1+ (Not Present) A 04/24/18 03:30 Hypochromasia Present (Not Present) A 04/24/18 03:30 Poikilocytosis 2+ (Not Present) A 04/24/18 03:30 Anisocytosis 3+ (Not Present) A 04/24/18 03:30 Microcytosis Present (Not Present) A 04/24/18 03:30 Macrocytosis Present (Not Present) A 04/24/18 03:30 Target Cells 1+ (Not Present) A 04/24/18 03:30 Tear Drop Cells 1+ (Not Present) A 04/04/18 05:46 Schistocytes 1+ (Not Present) A 04/24/18 03:30 PT 13.2 Seconds (9.4-12.1) H 04/19/18 06:20 APTT 37.0 Seconds (26.0-36.0) H 04/13/18 03:05 ABG pCO2 51 mmHg (35-45) H 04/23/18 08:01 ABG pO2 48 mmHg (85-104) L* 04/23/18 08:01 ABG HCO3 29 mEq/L (21-27) H 04/23/18 08:01 ABG Total CO2 30 mEq/L (20-26) H 04/23/18 08:01 ABG O2 Saturation 81 % (95-98) L 04/23/18 08:01 VBG pH 7.27 pH Units (7.32-7.42) L 04/12/18 22:34 VBG pCO2 66 mmHg (41-51) H 04/12/18 22:34 VBG HCO3 30 mEq/L (21-27) H 04/12/18 22:34 BUN 46 mg/dL (8-23) H 04/24/18 03:30 Creatinine 1.51 mg/dL (0.60-1.20) H 04/24/18 03:30 Est GFR ( Amer) 42 (> 60) L 04/24/18 03:30 Est GFR (Non-Af Amer) 35 (> 60) L 04/24/18 03:30 BUN/Creatinine Ratio 30 (6-26) H 04/24/18 03:30 Glucose 247 mg/dL (70-105) H 04/24/18 03:30 POC Glucose 183 mg/dL (70-99) H 04/23/18 20:18 Hemoglobin A1c 6.8 % (-5.6) H 03/26/18 06:14 Calculated Osmolality 314 (280-300) H 04/24/18 03:30 Calcium 8.1 mg/dL (8.6-10.3) L 04/24/18 03:30 Venous Ioniz Calcium 0.98 mmol/L (1.15-1.35) L 04/15/18 15:55 Magnesium 1.3 mg/dL (1.6-2.6) L 04/22/18 04:38 Iron < 10 mcg/dL (50-170) L 03/29/18 05:53 Transferrin 158 mg/dL (203-362) L 03/29/18 05:53 ALT 95 Units/L (7-52) H 04/19/18 06:20 Alkaline Phosphatase 202 Units/L (34-104) H 04/19/18 06:20 Troponin I 0.06 ng/mL (< 0.04) H* 04/13/18 03:20 B-Natriuretic Peptide 185 pg/mL (Less than 100) H 03/25/18 00:59 Serum Total Protein 5.3 g/dL (6.4-8.9) L 04/19/18 06:20 Albumin 2.4 g/dL (3.5-5.7) L 04/19/18 06:20 Albumin/Globulin Ratio 0.8 (1.1-2.2) L 04/19/18 06:20 Urine Clarity Hazy (Clear) A 04/11/18 20:37 Ur Leukocyte Esterase Small (Negative) H 04/11/18 20:37 Urine Microscopic RBC 3-5 per hpf (0-3) H 03/27/18 04:15 Urine Microscopic WBC 15-30 per hpf (0-3) H 04/11/18 20:37 Ur Squamous Epith Cells Many per lpf (None-Few) H 04/11/18 20:37 Urine Bacteria Many per hpf (None-Few) H 04/11/18 20:37 Urine Yeast Many per hpf (None Seen) H 04/11/18 20:37 Ur Culture Indicated? NO. (NO) A 04/11/18 20:37 Stl C. diff Tox B Gene Positive (Negative) A 03/26/18 20:10 Stl C. diff Tox A/B PCR See reflex test (Not detect) A 03/26/18 20:10 Vancomycin Trough 19 mcg/mL (5-10) H 04/19/18 06:20 EKTA Screen DETECTED (None Detected) A 04/05/18 14:52 EKTA Titer 1:160 (<1:80) H 04/05/18 14:52 Mitochondria M2 IgG Ab 45.3 Units (0.0-20.0) H 04/05/18 14:52 Hepatitis A Ab Total POSITIVE (Negative) A 04/12/18 17:14 Mycoplasma pneumon IgG 0.48 U/L (<=0.09) H 04/05/18 12:12 - Clinical Findings Intake & Output: Intake & Output 04/23/18 04/23/18 04/24/18 15:59 23:59 07:59 Intake Total 100 / 100 914 / 914 480 / 480 Output Total 1100 / 1100 400 / 400 675 / 675 Balance -1000 / -1000 514 / 514 -195 / -195 Weight 60 kg Consult Discharge Plan - Plan Referrals: Kathy Acosta DO [Resident] - 04/26/18 10:00 am
[2018-04-24] MEDS: Beclomethasone 40mcg REDIHALER IH SCH ×2 (07:41→19:52)
[2018-04-24] MEDS: Insulin LISPRO 300 UNITS/3 ML VIAL SQ SCH ×4 (08:00→22:10)
[2018-04-24] MEDS: Gabapentin 100 MG CAPSULE PO SCH ×3 (08:01→22:04)
[2018-04-24] MEDS: amLODIPine 5 MG TABLET PO SCH (08:01)
[2018-04-24] MEDS: Vancomycin Oral Soln 125 MG/2.5 ML UDC PO SCH ×4 (08:01→22:33)
[2018-04-24] MEDS: Furosemide 20 MG/2 ML VIAL IVP SCH ×2 (08:02→16:55)
[2018-04-24] MEDS: Aspirin 81 MG TAB.CHEW PO SCH (08:02)
[2018-04-24] MEDS: Lactobacillus 1 EACH CAP.SPRINK PO SCH ×2 (08:02→22:05)
[2018-04-24] MEDS: Sucralfate 1 GM TABLET PO SCH ×3 (08:02→15:57)
[2018-04-24] MEDS: Metoprolol 100 MG TABLET PO SCH ×2 (08:02→22:04)
[2018-04-24] MEDS ORDERED: Insulin DETEMIR 100 UNIT/ML X5UNITS SQ SCH ×2 (09:00)
--- NOTE | 2018-04-24 10:17 | Infectious Disease Progress No ---
Date of Encounter: 04/24/18 Time of Encounter: 10:15 - Assessment and Plan (1) Sepsis Current Visit: No Status: Acute Progressed to septic shock requiring vasopressors with end organ damage. Likely secondary to pneumonia and Hepatitis A. WBC back up a little today, but could be secondary to steroids. Vasopressors off. Hypothermia has resolved. Blood cultures obtained 03/25/18 are negative 2 sets. Repeat blood cultures drawn 04/11/18 are negative x 2 sets. Qualifiers: Sepsis type: sepsis due to unspecified organism Qualified Code(s): A41.9 - Sepsis, unspecified organism (2) Pneumonia Current Visit: Yes Status: Acute Location: Multifocal, greatest in the left lower lobe. Causative organism: Unclear. No evidence of aspiration noted on exam. Respiratory infectious panel was negative. Strep pneumococcal and legionella urinary antigens were negative. The patient has been able to provide us with 2 sputum cultures that are both negative. CT chest 04/08/18 showed improvement, but CT abdomen and pelvis 04/11/18 showed persistent LLL pneumonia. Completed 12 days of Zosyn and 6 days of Vanc. Clinically, patient appears to have improved. She is requiring less oxygen and is more alert. CT of the chest completed 04/18/18 showed increasing multifocal airspace disease suggesting pneumonia. Pulmonology re-evaluation noted and appreciated. 04/23/18 patient became hypoxic and required BIPAP. Per pulmonary, likely pulmonary edema rather than pneumonia. CXR 04/23/18 showed resolving PNA. Vancomycin stopped by the primary team (completed 8 days). Completed 13 days of Zosyn. Discontinue Vanc and Zosyn. Observe off antibiotics. Qualifiers: Pneumonia type: due to unspecified organism Laterality: bilateral Lung location: lower lobe of lung Qualified Code(s): J18.1 - Lobar pneumonia, unspecified organism (3) C. difficile colitis Current Visit: Yes Status: Acute Severe. Clinically, the patient's stools are more formed, but she is still stooling several times per day. Repeat CT of the abdomen and pelvis showed findings consistent with ileus and gastroenteritis on 04/08/[address] of the abdomen and pelvis 04/11/18 did not show any bowel thickening or toxic megacolon, but radiologist reports concern for ischemic bowel due to se akil calcification of the mesenteric circulation. Status post colonoscopy 04/12/18 that was negative for pseudomembranous or toxic megacolon. IV Flagyl stopped by the primary team. Continue Vancomycin 125mg PO QID. (day 28). Duration of treatment depends on the clinical picture, but continue through 04/25/18, then discontinue. (4) Abdominal pain Current Visit: Yes Status: Resolved Secondary to C diff colitis and gastroenteritis and Hepatitis A. GI consulted. Appreciate recommendations. LFTs this morning markedly elevated and lactic acid 9. CT abdomen and pelvis on 04/03/2018: Cholelithiasis, small amount of gas within the bladder. Decreased small bowel distention with small bowel wall thickening in the left upper quadrant; no toxic megacolon. Repeat CT of the abdomen and pelvis 04/11/18 showed findings concerning for i schemic bowel. Status post colonoscopy 04/12/15 that was negative for pseudomembranous colitis or toxic megacolon. Improved. Qualifiers: Abdominal location: generalized Qualified Code(s): R10.84 - Generalized abdominal pain (5) Rectal bleeding Current Visit: Yes Status: Resolved Patient started having bloody stools overnight. Etiology unclear. Not sure that it is from the C. diff since her stools are formed. Status post colonoscopy 04/12/18 that was negative for bleeding. Appears resolved. Management and transfusion parameters per the primary team. (6) Elevated transaminase level Current Visit: Yes Status: Resolved Likely secondary to Hepatitis A vs. shock liver. Resolved. Continue supportive care. (7) Lactic acidosis Current Visit: Yes Status: Resolved Likely secondary to sepsis. Improved. (8) Acute kidney injury Current Visit: Yes Status: Acute Etiology unclear. Serum creatinine trending down. Nephrology consulted and signed off. Continue to trend. CRRT started 04/12/18, discontinued 04/15/18. (9) Hepatitis A Current Visit: Yes Status: Resolved Hepatitis A antibody positive. Likely contributing to the elevated LFTs. Continue to trend LFTs and continue supportive care. Qualifiers: Hepatic coma status: without hepatic coma Qualified Code(s): B15.9 - Hepatitis A without hepatic coma - Subjective Interval history: Patient seen and examined. No acute events noted overnight. Patient states she did not wear BIPAP overnight. States breathing is better. Still has chronic p roductive cough. Reports gassy abdominal pain, but denies vomiting or diarrhea. Continues to report multiple stools per day, but more formed per nursing. Infect Dis PN-Objective Data - Labs CBC & Chem 7: 04/24/18 03:30 04/24/18 03:30 Labs: Laboratory Results - last 24 hr 04/23/18 04/23/18 04/23/18 07:34 07:37 11:36 WBC RBC Hgb Hct MCV MCH MCHC RDW Plt Count MPV Immature Gran % Seg Neutrophils % Lymphocytes % Monocytes % Eosinophils % Basophils % Neutrophils # Lymphocytes # Monocytes # Eosinophils # Basophils # Nucleated RBCs/100 WBC Platelet Estimate Immature Plt Fraction Polychromasia Hypochromasia Poikilocytosis Anisocytosis Microcytosis Macrocytosis Target Cells Schistocytes Sodium Potassium Chloride Carbon Dioxide BUN Creatinine Est GFR ( Amer) Est GFR (Non-Af Amer) BUN/Creatinine Ratio Glucose POC Glucose 30 L* 27 L* 81 Calculated Osmolality Calcium 04/23/18 04/23/18 04/23/18 13:35 16:14 20:18 WBC RBC Hgb Hct MCV MCH MCHC RDW Plt Count MPV Immature Gran % Seg Neutrophils % Lymphocytes % Monocytes % Eosinophils % Basophils % Neutrophils # Lymphocytes # Monocytes # Eosinophils # Basophils # Nucleated RBCs/100 WBC Platelet Estimate Immature Plt Fraction Polychromasia Hypochromasia Poikilocytosis Anisocytosis Microcytosis Macrocytosis Target Cells Schistocytes Sodium Potassium Chloride Carbon Dioxide BUN Creatinine Est GFR ( Amer) Est GFR (Non-Af Amer) BUN/Creatinine Ratio Glucose POC Glucose 82 105 H 183 H Calculated Osmolality Calcium 04/24/18 04/24/18 03:30 03:30 WBC 25.3 H RBC 3.52 L Hgb 8.9 L Hct 29.5 L MCV 83.8 MCH 25.3 L MCHC 30.2 L RDW 22.2 H Plt Count 234 MPV TNP Immature Gran % 0.8 Seg Neutrophils % 95.9 Lymphocytes % 2.4 Monocytes % 0.8 Eosinophils % 0.0 Basophils % 0.1 Neutrophils # 24.3 H Lymphocytes # 0.6 Monocytes # 0.2 Eosinophils # 0.0 Basophils # 0.0 Nucleated RBCs/100 WBC 0.1 H Platelet Estimate Normal Immature Plt Fraction 20.8 H Polychromasia 1+ A Hypochromasia Present A Poikilocytosis 2+ A Anisocytosis 3+ A Microcytosis Present A Macrocytosis Present A Target Cells 1+ A Schistocytes 1+ A Sodium 142 Potassium 4.2 Chloride 104 Carbon Dioxide 26 BUN 46 H Creatinine 1.51 H Est GFR ( Amer) 42 L Est GFR (Non-Af Amer) 35 L BUN/Creatinine Ratio 30 H Glucose 247 H POC Glucose Calculated Osmolality 314 H Calcium 8.1 L Cultures: Cultures 04/11/18 11:55 Blood Culture - Final Peripheral Venipuncture No growth. Final report. 04/11/18 11:53 Blood Culture - Final Peripheral Venipuncture No growth. Final report. 04/05/18 13:38 Sputum Culture - Final Sputum 04/05/18 16:38 Sputum Culture - Final Sputum 03/27/18 04:15 Legionella Antigen - Final Urine,[place] Streptococcus pneumoniae Antigen (M - Final Serology 04/17/18 04/12/18 04/11/18 Range/Units 03:50 17:14 20:37 Urine Color Dark Yellow (Yellow) Urine Clarity Hazy A (Clear) Urine pH 5.0 (5.0-8.0) pH Units Ur Specific [place] 1.018 (1.010-1.025) Urine Protein Trace (Neg-Trace) mg/dL Urine Glucose (UA) Normal (Normal) mg/dL Urine Ketones Negative (Negative) mg/dL Urine Blood Negative (Negative) Urine Nitrite Negative (Negative) Urine Bilirubin Negative (Negative) Urine Urobilinogen Normal (Normal) mg/dL Ur Leukocyte Esterase Small H (Negative) Urine Microscopic RBC (0-3) per hpf Urine Microscopic WBC 15-30 H (0-3) per hpf Ur Squamous Epith Cells Many H (None-Few) per lpf Urine Bacteria Many H (None-Few) per hpf Hyaline Casts Few (None-Few) per lpf Urine Yeast Many H Ur Culture Indicated? NO. A (NO) Nasal Screen MRSA (PCR) (Negative) Stl C. cayetanensis PCR (Not detect) Stool Rotavirus A PCR (Not detect) Stl Adenov F 40/41 PCR (Not detect) Stool Astrovirus (PCR) (Not detect) Stool Campylobacter PCR (Not detect) Stl C. diff Tox B Gene (Negative) Stl C. diff Tox A/B PCR (Not detect) Stool Cryptosporidium PCR (Not detect) Stl Sh Tox Pr E STEC PCR (Not detect) Stool E coli O157 PCR (Not detect) Stl Enterotoxigenic E PCR (Not detect) Stool EPEC (PCR) (Not detect) Stool EAEC (PCR) (Not detect) Stl E. histolytica PCR (Not detect) Stool Giardia Lamblia PCR (Not detect) Stool Salmonella PCR (Not detect) Stool Sapovirus (PCR) (Not detect) Stl P. shigelloides PCR (Not detect) Stl Shigella/EIEC PCR (Not detect) St Y.enterocolitica PCR (Not detect) Stool Vibrio (PCR) (Not detect) Stl Vibrio cholerae PCR (Not detect) Stl Norovirus GI/GII PCR (Not detect) Stl GI Panel (PCR) Com Chlamy pneumoniae PCR (Not Detect) Adenovirus (PCR) (Not Detect) B. pertussis DNA (PCR) (Not Detect) B.parapertussis DNA PCR (Not Detect) Coronavirus OC43 (PCR) (Not Detect) Coronavirus HKU1 (PCR) (Not Detect) Coronavirus 229E (PCR) (Not Detect) Coronavirus NL63 (PCR) (Not Detect) Hepatitis A IgM Ab Nonreactive (Nonreactive) Hepatitis A Ab Total POSITIVE A (Negative) Hep Bs Antigen Nonreactive (Nonreactive) Hep B Core IgM Ab Nonreactive (Nonreactive) Hepatitis C Ab Screen Nonreactive (Nonreactive) Human Metapneumovir PCR (Not Detect) Influenza A (H1) PCR (Not Detect) Influ A (H1N1/09) PCR (Not Detect) Influenza A (H3) PCR (Not Detect) Influenza A Untype (PCR) (Not Detect) Influenza Type B (PCR) (Not Detect) Mycoplasma pneumon IgG (<=0.09) U/L Mycoplasma pneumon IgM (<=0.76) U/L M.pneumoniae DNA (PCR) (Not Detect) Parainfluenza 1 (PCR) (Not Detect) Parainfluenza 2 (PCR) (Not Detect) Parainfluenza 3 (PCR) (Not Detect) Parainfluenza 4 (PCR) (Not Detect) RSV (PCR) (Not Detect) Entero/Rhino (PCR) (Not Detect) 04/05/18 04/05/18 04/05/18 Range/Units 12:12 09:20 09:20 Urine Color (Yellow) Urine Clarity (Clear) Urine pH (5.0-8.0) pH Units Ur Specific Tatum (1.010-1.025) Urine Protein (Neg-Trace) mg/dL Urine Glucose (UA) (Normal) mg/dL Urine Ketones (Negative) mg/dL Urine Blood (Negative) Urine Nitrite (Negative) Urine Bilirubin (Negative) Urine Urobilinogen (Normal) mg/dL Ur Leukocyte Esterase (Negative) Urine Microscopic RBC (0-3) per hpf Urine Microscopic WBC (0-3) per hpf Ur Squamous Epith Cells (None-Few) per lpf Urine Bacteria (None-Few) per hpf Hyaline Casts (None-Few) per lpf Urine Yeast Ur Culture Indicated? (NO) Nasal Screen MRSA (PCR) Negative (Negative) Stl C. cayetanensis PCR (Not detect) Stool Rotavirus A PCR (Not detect) Stl Adenov F 40/41 PCR (Not detect) Stool Astrovirus (PCR) (Not detect) Stool Campylobacter PCR (Not detect) Stl C. diff Tox B Gene (Negative) Stl C. diff Tox A/B PCR (Not detect) Stool Cryptosporidium PCR (Not detect) Stl Sh Tox Pr E STEC PCR (Not detect) Stool E coli O157 PCR (Not detect) Stl Enterotoxigenic E PCR (Not detect) Stool EPEC (PCR) (Not detect) Stool EAEC (PCR) (Not detect) Stl E. histolytica PCR (Not detect) Stool Giardia Lamblia PCR (Not detect) Stool Salmonella PCR (Not detect) Stool Sapovirus (PCR) (Not detect) Stl P. shigelloides PCR (Not detect) Stl Shigella/EIEC PCR (Not detect) St Y.enterocolitica PCR (Not detect) Stool Vibrio (PCR) (Not detect) Stl Vibrio cholerae PCR (Not detect) Stl Norovirus GI/GII PCR (Not detect) Stl GI Panel (PCR) Com Chlamy pneumoniae PCR Not Detected (Not Detect) Adenovirus (PCR) Not Detected (Not Detect) B. pertussis DNA (PCR) Not Detected (Not Detect) B.parapertussis DNA PCR Not Detected (Not Detect) Coronavirus OC43 (PCR) Not Detected (Not Detect) Coronavirus HKU1 (PCR) Not Detected (Not Detect) Coronavirus 229E (PCR) Not Detected (Not Detect) Coronavirus NL63 (PCR) Not Detected (Not Detect) Hepatitis A IgM Ab (Nonreactive) Hepatitis A Ab Total (Negative) Hep Bs Antigen (Nonreactive) Hep B Core IgM Ab (Nonreactive) Hepatitis C Ab Screen (Nonreactive) Human Metapneumovir PCR Not Detected (Not Detect) Influenza A (H1) PCR Not Detected (Not Detect) Influ A (H1N1/09) PCR Not Detected (Not Detect) Influenza A (H3) PCR Not Detected (Not Detect) Influenza A Untype (PCR) Not Detected (Not Detect) Influenza Type B (PCR) Not Detected (Not Detect) Mycoplasma pneumon IgG 0.48 H (<=0.09) U/L Mycoplasma pneumon IgM 0.13 (<=0.76) U/L M.pneumoniae DNA (PCR) Not Detected (Not Detect) Parainfluenza 1 (PCR) Not Detected (Not Detect) Parainfluenza 2 (PCR) Not Detected (Not Detect) Parainfluenza 3 (PCR) Not Detected (Not Detect) Parainfluenza 4 (PCR) Not Detected (Not Detect) RSV (PCR) Not Detected (Not Detect) Entero/Rhino (PCR) Not Detected (Not Detect) 03/29/18 03/27/18 03/26/18 Range/Units 08:40 04:15 20:10 Urine Color Yellow (Yellow) Urine Clarity Clear (Clear) Urine pH 5.5 (5.0-8.0) pH Units Ur Specific Tatum 1.023 (1.010-1.025) Urine Protein Negative (Neg-Trace) mg/dL Urine Glucose (UA) Normal (Normal) mg/dL Urine Ketones Negative (Negative) mg/dL Urine Blood Trace H (Negative) Urine Nitrite Negative (Negative) Urine Bilirubin Negative (Negative) Urine Urobilinogen Normal (Normal) mg/dL Ur Leukocyte Esterase Small H (Negative) Urine Microscopic RBC 3-5 H (0-3) per hpf Urine Microscopic WBC 5-15 H (0-3) per hpf Ur Squamous Epith Cells Many H (None-Few) per lpf Urine Bacteria None Seen (None-Few) per hpf Hyaline Casts Few (None-Few) per lpf Urine Yeast Test Not Performed Ur Culture Indicated? NO. A (NO) Nasal Screen MRSA (PCR) (Negative) Stl C. cayetanensis PCR (Not detect) Stool Rotavirus A PCR (Not detect) Stl Adenov F 40/41 PCR (Not detect) Stool Astrovirus (PCR) (Not detect) Stool Campylobacter PCR (Not detect) Stl C. diff Tox B Gene Positive A (Negative) Stl C. diff Tox A/B PCR (Not detect) Stool Cryptosporidium PCR (Not detect) Stl Sh Tox Pr E STEC PCR (Not detect) Stool E coli O157 PCR (Not detect) Stl Enterotoxigenic E PCR (Not detect) Stool EPEC (PCR) (Not detect) Stool EAEC (PCR) (Not detect) Stl E. histolytica PCR (Not detect) Stool Giardia Lamblia PCR (Not detect) Stool Salmonella PCR (Not detect) Stool Sapovirus (PCR) (Not detect) Stl P. shigelloides PCR (Not detect) Stl Shigella/EIEC PCR (Not detect) St Y.enterocolitica PCR (Not detect) Stool Vibrio (PCR) (Not detect) Stl Vibrio cholerae PCR (Not detect) Stl Norovirus GI/GII PCR (Not detect) Stl GI Panel (PCR) Com Chlamy pneumoniae PCR (Not Detect) Adenovirus (PCR) (Not Detect) B. pertussis DNA (PCR) (Not Detect) B.parapertussis DNA PCR (Not Detect) Coronavirus OC43 (PCR) (Not Detect) Coronavirus HKU1 (PCR) (Not Detect) Coronavirus 229E (PCR) (Not Detect) Coronavirus NL63 (PCR) (Not Detect) Hepatitis A IgM Ab (Nonreactive) Hepatitis A Ab Total (Negative) Hep Bs Antigen (Nonreactive) Hep B Core IgM Ab (Nonreactive) Hepatitis C Ab Screen (Nonreactive) Human Metapneumovir PCR (Not Detect) Influenza A (H1) PCR (Not Detect) Influ A (H1N1/09) PCR (Not Detect) Influenza A (H3) PCR (Not Detect) Influenza A Untype (PCR) (Not Detect) Influenza Type B (PCR) (Not Detect) Mycoplasma pneumon IgG 0.30 H (<=0.09) U/L Mycoplasma pneumon IgM 0.06 (<=0.76) U/L M.pneumoniae DNA (PCR) (Not Detect) Parainfluenza 1 (PCR) (Not Detect) Parainfluenza 2 (PCR) (Not Detect) Parainfluenza 3 (PCR) (Not Detect) Parainfluenza 4 (PCR) (Not Detect) RSV (PCR) (Not Detect) Entero/Rhino (PCR) (Not Detect) 03/26/18 Range/Units 20:10 Urine Color (Yellow) Urine Clarity (Clear) Urine pH (5.0-8.0) pH Units Ur Specific Tatum (1.010-1.025) Urine Protein (Neg-Trace) mg/dL Urine Glucose (UA) (Normal) mg/dL Urine Ketones (Negative) mg/dL Urine Blood (Negative) Urine Nitrite (Negative) Urine Bilirubin (Negative) Urine Urobilinogen (Normal) mg/dL Ur Leukocyte Esterase (Negative) Urine Microscopic RBC (0-3) per hpf Urine Microscopic WBC (0-3) per hpf Ur Squamous Epith Cells (None-Few) per lpf Urine Bacteria (None-Few) per hpf Hyaline Casts (None-Few) per lpf Urine Yeast Ur Culture Indicated? (NO) Nasal Screen MRSA (PCR) (Negative) Stl C. cayetanensis PCR Not detected (Not detect) Stool Rotavirus A PCR Not detected (Not detect) Stl Adenov F 40/41 PCR Not detected (Not detect) Stool Astrovirus (PCR) Not detected (Not detect) Stool Campylobacter PCR Not detected (Not detect) Stl C. diff Tox B Gene (Negative) Stl C. diff Tox A/B PCR See reflex test A (Not detect) Stool Cryptosporidium PCR Not detected (Not detect) Stl Sh Tox Pr E STEC PCR Not detected (Not detect) Stool E coli O157 PCR Not detected (Not detect) Stl Enterotoxigenic E PCR Not detected (Not detect) Stool EPEC (PCR) Not detected (Not detect) Stool EAEC (PCR) Not detected (Not detect) Stl E. histolytica PCR Not detected (Not detect) Stool Giardia Lamblia PCR Not detected (Not detect) Stool Salmonella PCR Not detected (Not detect) Stool Sapovirus (PCR) Not detected (Not detect) Stl P. shigelloides PCR Not detected (Not detect) Stl Shigella/EIEC PCR Not detected (Not detect) St Y.enterocolitica PCR Not detected (Not detect) Stool Vibrio (PCR) Not detected (Not detect) Stl Vibrio cholerae PCR Not detected (Not detect) Stl Norovirus GI/GII PCR Not detected (Not detect) Stl GI Panel (PCR) Com See below Chlamy pneumoniae PCR (Not Detect) Adenovirus (PCR) (Not Detect) B. pertussis DNA (PCR) (Not Detect) B.parapertussis DNA PCR (Not Detect) Coronavirus OC43 (PCR) (Not Detect) Coronavirus HKU1 (PCR) (Not Detect) Coronavirus 229E (PCR) (Not Detect) Coronavirus NL63 (PCR) (Not Detect) Hepatitis A IgM Ab (Nonreactive) Hepatitis A Ab Total (Negative) Hep Bs Antigen (Nonreactive) Hep B Core IgM Ab (Nonreactive) Hepatitis C Ab Screen (Nonreactive) Human Metapneumovir PCR (Not Detect) Influenza A (H1) PCR (Not Detect) Influ A (H1N1/09) PCR (Not Detect) Influenza A (H3) PCR (Not Detect) Influenza A Untype (PCR) (Not Detect) Influenza Type B (PCR) (Not Detect) Mycoplasma pneumon IgG (<=0.09) U/L Mycoplasma pneumon IgM (<=0.76) U/L M.pneumoniae DNA (PCR) (Not Detect) Parainfluenza 1 (PCR) (Not Detect) Parainfluenza 2 (PCR) (Not Detect) Parainfluenza 3 (PCR) (Not Detect) Parainfluenza 4 (PCR) (Not Detect) RSV (PCR) (Not Detect) Entero/Rhino (PCR) (Not Detect) Exam - Constitutional Vitals: Temp Pulse Resp BP Pulse Ox 98.6 F 81 18 174/78 97 04/24/18 07:40 04/24/18 07:40 04/24/18 07:43 04/24/18 07:40 04/24/18 07:43 General appearance: average body habitus, cooperative, no acute distress - Head Head exam: Present: atraumatic, normal inspection, normocephalic - Eye Eye exam: Present: EOMI, normal appearance, PERRL Pupils: Present: normal accommodation - ENT ENT exam: Present: mucous membranes moist - Neck Neck exam: Present: normal inspection - Respiratory Respiratory exam: Present: rhonchi (throughout). Absent: rales, respiratory distress, wheezes - Cardiovascular Cardiovascular exam: Present: RRR, +S1, +S2 - GI/Abdominal GI/Abdominal exam: Present: normal bowel sounds, soft, tenderness (generalized). Absent: distended Additional comments: Chandra catheter noted to be draining clear yellow urine. - Extremities Exam Extremities exam: Present: normal inspection. Absent: joint swelling, pedal edema, tenderness - Neurological Exam Neurological exam: Present: alert, oriented X3. Absent: no focal deficits (Par alysis noted to the RLE and diminshed motor/sensation noted to the RUE.) - Psychiatric Psychiatric exam: Present: normal affect, normal mood - Skin Skin exam: Present: dry, intact, normal color, warm Consult Discharge Plan - Plan Referrals: Kathy Acosta DO [Resident] - 04/26/18 10:00 am - Attending Attestation I examined this patient and my medical decision-making was reviewed with the Resident Physician. I agree with the documented findings, disposition and treatment plan as described except to the extent set forth below.
--- NOTE | 2018-04-24 13:15 | Internal Med Progress Note ---
<Lucero Salas - Last Filed: 04/24/18 13:12> Hospitalist Progress Note - Encounter Date of Encounter: 04/24/18 Time of Encounter: 08:45 - Subjective Interval History: Ms. Lauren was examined at bedside this morning. She was laying in bed on nasal canula. She is comfortable in bed and states her breathing has improved. She had no events overnight. Her blood pressure has remained stable overnight. Today her hemoglobin was 8.9 and has remained stable the past 5 days. She had episodes of emesis. She continues to have several episodes of bowel movements, although more formed now. She denied any abdominal pain, nausea, emesis, fever, chills or chest pain. - Exam Vitals: Temp Pulse Resp BP Pulse Ox 98.5 F 85 16 158/62 90 04/24/18 11:50 04/24/18 11:50 04/24/18 11:50 04/24/18 11:50 04/24/18 11:50 Exam: Constitutional: Alert, laying in bed comfortably, on nasal canula HEENT: Normocephalic, atraumatic, moist mucus membranes Heart: Normal, regular rate and rhythm, no murmurs Lungs: Crackles at bilateral lower lung bases, no wheezing or rhonchi Abdomen: Soft, normal bowel sounds, non tender Extremities: No edema of lower extremity or upper extremities, warm, nontender Skin: Skin warm and dry, no lesions, no rashes, no jaundice Psych: thought content congruent, appropriate affect Neurological: Alert and oriented x 3, 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 Recently had hypoxic event with PaO2 of 46. She has required BiPAP and has been oxygenating well. Plan: -Continue with duoneb Q4h prn -Continue to wean O2 supplementation -Continue mucinex -Changed prednisone to 40 mg IV BID -Pulmonology consulted (2) Pneumonia Current Visit: Yes Status: Suspected Assessment and Plan: CT chest on 04/03 showed multifocal PNA, greatest in the LLL. Patient had worsening left-sided infiltrates on 04/13. Repeat CT on 04/18/18 showed increasing multifocal airspace disease suggesting pneumonia and small pleural effusions. Acute hypoxic exacerbation on 04/23/18, chest xray looks better than previous with decreased opacity. Plan: -Continue zosyn (day 13 since restarted, received 12 days previously) -IV vancomycin stopped given her poor renal function and has received 8 days of dose, her MRSA swab is negative -Renally dose antibiotics -Pulmonology consulted -Continue mucinex -Awaiting further recommendations for antibiotic dosing (3) C. difficile colitis Current Visit: Yes Status: Acute Assessment and Plan: Diarrhea ongoing, hepatitis A IgM is negative so acute phase of hepatitis A is resolved. Continues to have many bowel movements daily, although more formed. She did not show any evidence of pseudomembranous colitis and toxic megacolon during sigmoidoscopy on 04/12. Plan: -ID recommends continuing oral vancomycin, day 28 -Duration of treatment per Infectious disease -Continue to monitor stool for changes in consistency -Continue probiotics -Continue to monitor vitals and CBC (4) Diabetes type 2, controlled Current Visit: Yes Status: Chronic Assessment and Plan: Her glucose today was 247 this morning Yesterday her glucose was 68 and insulin was lowered from 20 to 10 as she had poor oral intake She has started to have more oral intake as she is no longer on BiPAP Plan: Increased long acting from 10 to 15 BID Encourage dietary intake Continue sliding scale Continue to monitor (5) Anemia Current Visit: Yes Status: Suspected Assessment and Plan: Hemoglobin 8.8 today and stable for the past 6 days. Plan: Continue to monitor Further GI work up as outpatient. (6) Pulmonary nodule Current Visit: Yes Status: Acute Assessment and Plan: CT of the chest noted a small lobulated nodule on the right upper lung lobe posteriorly Plan: Need to be followed to resolution after pneumonia resolves outpatient (7) Hepatitis A Current Visit: Yes Status: Resolved Assessment and Plan: Tested positive on 04/12. Because of the long incubation period of hepatitis A, she may have had hepatitis A prior to admission but liver enzymes worsened on . She had Hep A antibody positive on 04/12 and repeat Hep A IgM was negative on 04/17, so no active Hep A infection. Plan: Continue to monitor (8) Sepsis Current Visit: Yes Status: Resolved Assessment and Plan: Resolved. She progressed to septic shock on 04/12 and required vasopressors for one day. Her blood cultures remained negative. Likely source secondary to pneumonia and hepatitis A. Blood cultures negative from 03/25 and negative 04/11. Plan: Continue pneumonia management, ID recommends continuing zosyn--day 13 total doses Continue monitoring vitals Repeat chest xray on 04/17 shows bibasilar consolidation Chest xray today shows decresed left leural effusin with improvement of the left lower lobe opacity CT chest on 04/18 shows increased multifocal airspace disease suggesting pneumonia CBC in the morning (9) Shock liver Current Visit: Yes Status: Resolved Assessment and Plan: Resolved was likely due to sepsis and hepatitis A. (10) NIGEL (acute kidney injury) Current Visit: Yes Status: Acute Assessment and Plan: Creatinine of 1.51 today, stable for the past three days. Dialysis catheter removed. Output of 1500 yesterday and 675 today. Plan: -Continue 40 IV furosemide due to volume overload (11) Hypertension Current Visit: Yes Status: Acute Assessment and Plan: Chronic history of HTN, likely CKD stage 3b is contributing to it. Plan: Continue 10 mg amlodapine Continue 40 mg IV BID furosemide Continue to monitor (12) Abdominal distension (gaseous) Current Visit: Yes Status: Acute Assessment and Plan: Likely due to bed bug exterminator antibiotic use and recently immodium was started. KUB three days ago showed nonspecific bowel gas pattern with no evidence for obstruction and severe atherosclerotic disease. Plan: Stopped immodium two days ago Continue simethicone PRN Continue culturelle (13) DVT prophylaxis Current Visit: Yes Status: Acute Assessment and Plan: SubQ heparin (14) Acute and chronic respiratory failure Current Visit: Yes Status: Acute Assessment and Plan: Improving. Likely due to volume overload, CHF exacerbation. This morning she is comfortable in bed and notes her breathing has improved. Plan: -Continue BiPAP if she has decrease in oxygen saturation -Continue duoneb Q4h prn -Continue mucinex -Continue 40 mg prednisone BID -40 mg IV furosemide BID -Pulmonology consulted - Time Spent with Patient Total time spent is greater than 50% in coordination of care (as documented) at patient's floor/unit and/or counseling patient: less than 15 minutes Plan of Care Discussed with: patient Internal Medicine: Result - Labs CBC & Chem 7: 04/24/18 03:30 04/24/18 03:30 Labs: Short CBC 04/24/18 Range/Units 03:30 WBC 25.3 H (4.3-11.1) K/mcL Hgb 8.9 L (11.5-15.4) g/dL Hct 29.5 L (35.3-44.9) % Plt Count 234 (140-400) K/mcL Neutrophils # 24.3 H (1.6-8.9) K/mcL BMP 04/24/18 03:30 Sodium 142 Potassium 4.2 Chloride 104 Carbon Dioxide 26 BUN 46 H Creatinine 1.51 H Glucose 247 H Calcium 8.1 L - ABG Interpretation ABG results: ABG ABG pH 7.36 pH Units (7.32-7.45) 04/23/18 08:01 ABG pCO2 51 mmHg (35-45) H 04/23/18 08:01 ABG pO2 48 mmHg (85-104) L* 04/23/18 08:01 ABG O2 Saturation 81 % (95-98) L 04/23/18 08:01 PT/INR, D-dimer PT 13.2 Seconds (9.4-12.1) H 04/19/18 06:20 Consult Discharge Plan - Plan Referrals: Kathy Acosta DO [Resident] - 04/26/18 10:00 am <Alex Parham - Last Filed: 04/24/18 15:00> Hospitalist Progress Note - Encounter Date of Encounter: 04/24/18 - Exam Vitals: Temp Pulse Resp BP Pulse Ox 98.5 F 85 16 158/62 90 04/24/18 11:50 04/24/18 11:50 04/24/18 11:50 04/24/18 11:50 04/24/18 11:50 - Assessment and Plan (1) COPD (chronic obstructive pulmonary disease) Current Visit: Yes Status: Chronic (2) Pneumonia Current Visit: Yes Status: Suspected (3) C. difficile colitis Current Visit: Yes Status: Acute (4) Diabetes type 2, controlled Current Visit: Yes Status: Chronic (5) Anemia Current Visit: Yes Status: Suspected (6) Pulmonary nodule Current Visit: Yes Status: Acute (7) Hepatitis A Current Visit: Yes Status: Resolved (8) Sepsis Current Visit: Yes Status: Resolved (9) DVT prophylaxis Current Visit: Yes Status: Acute (10) Shock liver Current Visit: Yes Status: Resolved (11) NIGEL (acute kidney injury) Current Visit: Yes Status: Acute (12) Hypertension Current Visit: Yes Status: Acute (13) Abdominal distension (gaseous) Current Visit: Yes Status: Acute (14) Acute and chronic respiratory failure Current Visit: Yes Status: Acute - Time Spent with Patient Total time spent is greater than 50% in coordination of care (as documented) at patient's floor/unit and/or counseling patient: Internal Medicine: Result - Labs CBC & Chem 7: 04/24/18 03:30 04/24/18 03:30 Labs: Short CBC 04/24/18 Range/Units 03:30 WBC 25.3 H (4.3-11.1) K/mcL Hgb 8.9 L (11.5-15.4) g/dL Hct 29.5 L (35.3-44.9) % Plt Count 234 (140-400) K/mcL Neutrophils # 24.3 H (1.6-8.9) K/mcL BMP 04/24/18 03:30 Sodium 142 Potassium 4.2 Chloride 104 Carbon Dioxide 26 BUN 46 H Creatinine 1.51 H Glucose 247 H Calcium 8.1 L - ABG Interpretation ABG results: ABG ABG pH 7.36 pH Units (7.32-7.45) 04/23/18 08:01 ABG pCO2 51 mmHg (35-45) H 04/23/18 08:01 ABG pO2 48 mmHg (85-104) L* 04/23/18 08:01 ABG O2 Saturation 81 % (95-98) L 04/23/18 08:01 PT/INR, D-dimer PT 13.2 Seconds (9.4-12.1) H 04/19/18 06:20 - Impressions Impressions Videofluoroscopic Swallow 04/24/18 12:00 IMPRESSION: Penetration of thin, nectar thick, and honey thick liquids and probable aspiration of thin liquids. Please see separate speech pathology report for full discussion of findings and recommendations. D/ / Conrad Medeiros MD / Conrad Medeiros MD Interpreting Provider: Conrad Medeiros MD - Attending Attestation I examined this patient and my medical decision-making was reviewed with the Resident Physician Dr. Salas. I agree with the documented findings, disposition and treatment plan as described except to the extent set forth below. Ms. Lauren is a 63 year old female history of COPD on 3 L oxygen at home admitted here with Sepsis, Pneumonia, developed C. Diff colitis and respiratory failure was transferred to ICU and moved to [facility] again when pt got stabilized. Pt went into acute hypoxic resp failure on 04/23/18. Now she is breathing comfortably on 4 lit O2. She denied any CP. She i s alert, awake and O x 3 Gen: Mild Resp distress Chest: Diminished BS b/l, crackles + Rales +, Moderate wheezing Heart: S1S2+ RRR Ext: No edema a/p 1. Acute on chronic hypoxic resp failure 2. Acute COPD exacerbation 3. Acute Pneumonia - bacterial 4. Sepsis Cont BiPAP for next 24 hrs Pulm on board cont IV Lasix 40mg BID CXR showed improving multi focal pneumonia Cont broad spec abx start tapering steroids Duoneb Encouraged frequent IS 5. C. Diff colitis cont Vancomycin 6. Volume overload cont IV Lasix <Lucero Salas - Last Filed: 04/24/18 13:12> (1) COPD (chronic obstructive pulmonary disease) Qualifiers: COPD type: chronic bronchitis Chronic bronchitis type: mucopurulent Qualified Code(s): J41.1 - Mucopurulent chronic bronchitis (2) Pneumonia Qualifiers: Pneumonia type: due to other aerobic Gram-negative bacteria Laterality: bilateral Lung location: lower lobe of lung Qualified Code(s): J15.6 - Pneumonia due to other Gram-negative bacteria (4) Diabetes type 2, controlled Qualifiers: Diabetes mellitus bed bug exterminator insulin use: with fpc use Diabetes mellitus complication status: with hyperglycemia Qualified Code(s): E11.65 - Type 2 diabetes mellitus with hyperglycemia; Z79.4 - intermediate designer (current) use of insulin (5) Anemia Qualifiers: Anemia type: iron deficiency Iron deficiency anemia type: chronic blood loss Qualified Code(s): D50.0 - Iron deficiency anemia secondary to blood loss ( chronic) (7) Hepatitis A Qualifiers: Hepatic coma status: without hepatic coma Qualified Code(s): B15.9 - Hepatitis A without hepatic coma (8) Sepsis Qualifiers: Sepsis type: sepsis due to unspecified organism Qualified Code(s): A41.9 - Sepsis, unspecified organism (11) Hypertension Qualifiers: Hypertension type: essential hypertension Qualified Code(s): I10 - Essential (primary) hypertension <JosefadelsoarelyAlex - Last Filed: 04/24/18 15:00> (1) COPD (chronic obstructive pulmonary disease) Qualifiers: COPD type: chronic bronchitis Chronic bronchitis type: mucopurulent Qualified Code(s): J41.1 - Mucopurulent chronic bronchitis (2) Pneumonia Qualifiers: Pneumonia type: due to other aerobic Gram-negative bacteria Laterality: bilateral Lung location: lower lobe of lung Qualified Code(s): J15.6 - Pneumonia due to other Gram-negative bacteria (4) Diabetes type 2, controlled Qualifiers: Diabetes mellitus fpc insulin use: with fpc use Diabetes mellitus complication status: with hyperglycemia Qualified Code(s): E11.65 - Type 2 diabetes mellitus with hyperglycemia; Z79.4 - intermediate designer (current) use of insulin (5) Anemia Qualifiers: Anemia type: iron deficiency Iron deficiency anemia type: chronic blood loss Qualified Code(s): D50.0 - Iron deficiency anemia secondary to blood loss ( chronic) (7) Hepatitis A Qualifiers: Hepatic coma status: without hepatic coma Qualified Code(s): B15.9 - Hepatitis A without hepatic coma (8) Sepsis Qualifiers: Sepsis type: sepsis due to unspecified organism Qualified Code(s): A41.9 - Sepsis, unspecified organism (12) Hypertension Qualifiers: Hypertension type: essential hypertension Qualified Code(s): I10 - Essential (primary) hypertension
--- NOTE | 2018-04-24 19:59 | Event Note ---
Date of Encounter: 04/24/18 Time of Encounter: 19:53 Called by RN stating patient had third bloody BM today just now. BP stable/high , patient not tachycardic, and being treated for C. Diff Colitis. I ordered STAT and serial H/H and type and cross and hold 2 units PRBC's for possible transfusion. I asked RN to contact me with results and/or if patient develops any hemodynamic instability.
[2018-04-24 20:38] LABS: Hematocrit 25.1 % (35.3-44.9); Hemoglobin 7.7 g/dL (11.5-15.4)
[2018-04-24] MEDS: Insulin DETEMIR 100 UNIT/ML X5UNITS SQ SCH (22:05)
[2018-04-24] MEDS: traZODone 50 MG TABLET PO SCH (22:05)
[2018-04-24] MEDS ORDERED: 0.9 % Sodium Chloride 500 ML ONE (22:29)
[2018-04-25] MEDS ORDERED: 0.9 % Sodium Chloride 500 ML ONE (01:58)
[2018-04-25] MEDS: Beclomethasone 40mcg REDIHALER IH SCH ×2 (07:30→20:18)
[2018-04-25] MEDS: Ipratropium/Albuterol Neb 3 ML IH SCH ×6 (07:30→23:21)
[2018-04-25 11:26] LABS: Hematocrit 30.9 % (35.3-44.9)
[2018-04-25 11:42] LABS: Basophils % 0.2 %; Hematocrit 29.9 % (35.3-44.9); Hemoglobin 9.5 g/dL (11.5-15.4); Immature Granulocytes % 0.9 % (0-4); Immature Platelets 22.1 % (1.1-6.1); Lymphocytes # 1.2 K/mcL (0.6-4.6); Lymphocytes % 4.6 %; Mean Corpuscular HGB Conc 31.8 g/dL (31.6-35.5); Mean Corpuscular Hemoglobin 26.7 pg (28.0-33.3); Mean Platelet Volume 13.3 fL (9.4-12.4); Monocytes # 0.6 K/mcL (0.0-1.3); Monocytes % 2.3 %; Neutrophils # 23.6 K/mcL (1.6-8.9); Nucleated Red Blood Cells 0.1 /100 WBC (0); Platelet Count 219 K/mcL (140-400); Red Blood Count 3.56 M/mcL (3.82-4.97); Red Cell Distribution Width 19.2 % (11.5-14.5)
[2018-04-25 11:49] LABS: Calcium 8.3 mg/dL (8.6-10.3)
[2018-04-25] MEDS: MethylPREDNISolone 40 MG/ML VIAL IVP SCH (12:02)
[2018-04-25] MEDS: Insulin LISPRO 300 UNITS/3 ML VIAL SQ SCH ×4 (12:03→22:52)
[2018-04-25] MEDS: Sucralfate 1 GM TABLET PO SCH ×3 (12:03→16:03)
[2018-04-25] MEDS ORDERED: amLODIPine 5 MG TABLET PO ONE (12:04)
[2018-04-25] MEDS ORDERED: Lactobacillus 1 EACH CAP.SPRINK PO ONE (12:04)
[2018-04-25] MEDS ORDERED: Metoprolol 100 MG TABLET PO ONE (12:04)
[2018-04-25] MEDS ORDERED: Simethicone 80 MG TAB.CHEW PO ONE (12:04)
[2018-04-25] MEDS ORDERED: MethylPREDNISolone 40 MG/ML VIAL IVP ONE (12:04)
[2018-04-25] MEDS ORDERED: Vancomycin Oral Soln 125 MG/2.5 ML UDC PO ONE (12:04)
[2018-04-25] MEDS ORDERED: Acetaminophen 325 MG TABLET PO ONE (12:04)
[2018-04-25] MEDS ORDERED: Ipratropium/Albuterol Neb 3 ML IH ONE ×3 (12:04)
[2018-04-25] MEDS ORDERED: Gabapentin 100 MG CAPSULE PO ONE (12:04)
[2018-04-25] MEDS ORDERED: Sucralfate 1 GM TABLET PO ONE (12:04)
[2018-04-25] MEDS: Furosemide 20 MG/2 ML VIAL IVP SCH (12:06)
[2018-04-25] MEDS: Insulin DETEMIR 100 UNIT/ML X5UNITS SQ SCH ×2 (12:07→20:59)
[2018-04-25] MEDS: Lactobacillus 1 EACH CAP.SPRINK PO SCH ×2 (12:07→20:57)
[2018-04-25] MEDS: Aspirin 81 MG TAB.CHEW PO SCH (12:07)
[2018-04-25] MEDS: Vancomycin Oral Soln 125 MG/2.5 ML UDC PO SCH ×4 (12:07→20:58)
[2018-04-25] MEDS: Gabapentin 100 MG CAPSULE PO SCH ×3 (12:08→20:57)
[2018-04-25] MEDS: amLODIPine 5 MG TABLET PO SCH (12:08)
[2018-04-25] MEDS: Metoprolol 100 MG TABLET PO SCH ×2 (12:08→20:57)
[2018-04-25 12:39] LABS: Basophils # 0.1 K/mcL (0.0-0.2)
[2018-04-25 12:43] LABS: Hypochromasia Present (Not Present); Platelet Estimate Normal (Normal)
--- NOTE | 2018-04-25 13:10 | Infectious Disease Progress No ---
Date of Encounter: 04/25/18 Time of Encounter: 09:20 - Assessment and Plan (1) Sepsis Current Visit: No Status: Acute Progressed to septic shock requiring vasopressors with end organ damage. Likely secondary to pneumonia and Hepatitis A. WBC continues to trend up, but could be secondary to steroids or reactive from GI bleed. Vasopressors off. Hypothermia has resolved. Blood cultures obtained 03/25/18 are negative 2 sets. Repeat blood cultures drawn 04/11/18 are negative x 2 sets. Qualifiers: Sepsis type: sepsis due to unspecified organism Qualified Code(s): A41.9 - Sepsis, unspecified organism (2) Pneumonia Current Visit: Yes Status: Acute Location: Multifocal, greatest in the left lower lobe. Causative organism: Unclear. No evidence of aspiration noted on exam. Respiratory infectious panel was negative. Strep pneumococcal and legionella urinary antigens were negative. The patient has been able to provide us with 2 sputum cultures that are both negative. CT chest 04/08/18 showed improvement, but CT abdomen and pelvis 04/11/18 showed persistent LLL pneumonia. Completed 12 days of Zosyn and 6 days of Vanc. Clinically, patient appears to have improved. She is requiring less oxygen and is more alert. CT of the chest completed 04/18/18 showed increasing multifocal airspace disease suggesting pneumonia. Pulmonology re-evaluation noted and appreciated. 04/23/18 patient became hypoxic and required BIPAP. Per pulmonary, likely pulmonary edema rather than pneumonia. CXR 04/23/18 showed resolving PNA. Vancomycin stopped by the primary team (completed 8 days). Completed 13 days of Zosyn. Continue to observe off antibiotics. Qualifiers: Pneumonia type: due to unspecified organism Laterality: bilateral Lung location: lower lobe of lung Qualified Code(s): J18.1 - Lobar pneumonia, unspecified organism (3) C. difficile colitis Current Visit: Yes Status: Resolved Severe. Clinically, the patient's stools are more formed, but she is still stooling several times per day. Repeat CT of the abdomen and pelvis showed findings consistent with ileus and gastroenteritis on 04/08/[address] of the abdomen and pelvis 04/11/18 did not show any bowel thickening or toxic megacolon, but radiologist reports concern for ischemic bowel due to severe calcification of the mesenteric circulation. Status post colonoscopy 04/12/18 that was negative for pseudomembranous or toxic megacolon. IV Flagyl stopped by the primary team. Continue Vancomycin 125mg PO QID. (day 29). Duration of treatment depends on the clinical picture, but continue through 04/25/18, then discontinue. (4) Abdominal pain Current Visit: Yes Status: Acute Secondary to C diff colitis and gastroenteritis and Hepatitis A. GI consulted. Appreciate recommendations. LFTs this morning markedly elevated and lactic acid 9. CT abdomen and pelvis on 04/03/2018: Cholelithiasis, small amount of gas within the bladder. Decreased small bowel distention with small bowel wall thickening in the left upper quadrant; no toxic megacolon. Repeat CT of the abdomen and pelvis 04/11/18 showed findings concerning for ischemic bowel. Status post colonoscopy 04/12/15 that was negative for pseudomembranous colitis or toxic megacolon. Had recurrence of GI bleed overnight with grossly bloody stools. GI consulted. Await recommendations. If concern for infectious colitis, consider transfer to tertiary care center for fecal transplant, otherwise management per the GI team. Qualifiers: Abdominal location: generalized Qualified Code(s): R10.84 - Generalized abdominal pain (5) Rectal bleeding Current Visit: Yes Status: Acute Patient started having bloody stools overnight. Etiology unclear. Not sure that it is from the C. diff since her stools are formed. Status post colonoscopy 04/12/18 that was negative for bleeding. Status post recurrence of GI bleed last night. GI consulted. Await recommendations. Management and transfusion parameters per the primary team. (6) Elevated transaminase level Current Visit: Yes Status: Resolved Likely secondary to Hepatitis A vs. shock liver. Resolved. Continue supportive care. (7) Lactic acidosis Current Visit: Yes Status: Resolved Likely secondary to sepsis. Improved. (8) Acute kidney injury Current Visit: Yes Status: Acute Etiology unclear. Serum creatinine trending down. Nephrology consulted and signed off. Continue to trend. CRRT started 04/12/18, discontinued 04/15/18. (9) Hepatitis A Current Visit: Yes Status: Resolved Hepatitis A antibody positive. Likely contributing to the elevated LFTs. Continue to trend LFTs and continue supportive care. Qualifiers: Hepatic coma status: without hepatic coma Qualified Code(s): B15.9 - Hepatitis A without hepatic coma - Subjective Interval history: Patient seen and examined. Patient started having grossly bloody stool overnight. Transfused two units PRBCs. Hypoxia has improved. States breathing is better. Still has chronic productive cough. Reports gassy abdominal pain, but denies vomiting or diarrhea. Continues to report multiple stools per day, but more formed per nursing and bloody. Pending GI evaluation. Infect Dis PN-Objective Data - Labs CBC & Chem 7: 04/26/18 10:35 04/26/18 05:13 Labs: Laboratory Results - last 24 hr 04/24/18 04/24/18 04/24/18 15:58 20:00 20:17 WBC RBC Hgb Hct MCV MCH MCHC RDW Plt Count MPV Immature Gran % Seg Neutrophils % Lymphocytes % Monocytes % Eosinophils % Basophils % Neutrophils # Lymphocytes # Monocytes # Eosinophils # Basophils # Nucleated RBCs/100 WBC Platelet Estimate Immature Plt Fraction Hypochromasia Sodium Potassium Chloride Carbon Dioxide BUN Creatinine Est GFR ( Amer) Est GFR (Non-Af Amer) BUN/Creatinine Ratio Glucose POC Glucose 154 H 164 H Calculated Osmolality Calcium Blood Type O POSITIVE Antibody Screen NEGATIVE Crossmatch See Detail 04/24/18 04/25/18 04/25/18 20:17 06:15 06:15 WBC 25.6 H RBC 3.56 L Hgb 7.7 L 9.5 L D Hct 25.1 L 29.9 L MCV 84.0 MCH 26.7 L MCHC 31.8 RDW 19.2 H Plt Count 219 MPV 13.3 H Immature Gran % 0.9 Seg Neutrophils % 92.0 Lymphocytes % 4.6 Monocytes % 2.3 Eosinophils % 0.0 Basophils % 0.2 Neutrophils # 23.6 H Lymphocytes # 1.2 Monocytes # 0.6 Eosinophils # 0.0 Basophils # 0.1 Nucleated RBCs/100 WBC 0.1 H Platelet Estimate Normal Immature Plt Fraction 22.1 H Hypochromasia Present A Sodium 143 Potassium 4.0 Chloride 106 Carbon Dioxide 30 H BUN 49 H Creatinine 1.44 H Est GFR ( Amer) 44 L Est GFR (Non-Af Amer) 37 L BUN/Creatinine Ratio 34 H Glucose 93 POC Glucose Calculated Osmolality 309 H Calcium 8.3 L Blood Type Antibody Screen Crossmatch 04/25/18 07:55 WBC RBC Hgb 10.0 L Hct 30.9 L MCV MCH MCHC RDW Plt Count MPV Immature Gran % Seg Neutrophils % Lymphocytes % Monocytes % Eosinophils % Basophils % Neutrophils # Lymphocytes # Monocytes # Eosinophils # Basophils # Nucleated RBCs/100 WBC Platelet Estimate Immature Plt Fraction Hypochromasia Sodium Potassium Chloride Carbon Dioxide BUN Creatinine Est GFR ( Amer) Est GFR (Non-Af Amer) BUN/Creatinine Ratio Glucose POC Glucose Calculated Osmolality Calcium Blood Type Antibody Screen Crossmatch Cultures: Cultures 04/11/18 11:55 Blood Culture - Final Peripheral Venipuncture No growth. Final report. 04/11/18 11:53 Blood Culture - Final Peripheral Venipuncture No growth. Final report. 04/05/18 13:38 Sputum Culture - Final Sputum 04/05/18 16:38 Sputum Culture - Final Sputum 03/25/18 04:25 Blood Culture - Final Peripheral Venipuncture No growth. Final report. 03/25/18 04:40 Blood Culture - Final Peripheral Venipuncture No growth. Final report. 03/27/18 04:15 Legionella Antigen - Final Urine,[place] Streptococcus pneumoniae Antigen (M - Final 03/25/18 03:15 Urine Culture - Final Urine,Clean Catch Serology 04/17/18 04/12/18 04/11/18 Range/Units 03:50 17:14 20:37 Urine Color Dark Yellow (Yellow) Urine Clarity Hazy A (Clear) Urine pH 5.0 (5.0-8.0) pH Units Ur Specific [place] 1.018 (1.010-1.025) Urine Protein Trace (Neg-Trace) mg/dL Urine Glucose (UA) Normal (Normal) mg/dL Urine Ketones Negative (Negative) mg/dL Urine Blood Negative (Negative) Urine Nitrite Negative (Negative) Urine Bilirubin Negative (Negative) Urine Urobilinogen Normal (Normal) mg/dL Ur Leukocyte Esterase Small H (Negative) Urine Microscopic RBC (0-3) per hpf Urine Microscopic WBC 15-30 H (0-3) per hpf Ur Squamous Epith Cells Many H (None-Few) per lpf Ur Renal Epithelial Cell (None-Few) per hpf Urine Bacteria Many H (None-Few) per hpf Hyaline Casts Few (None-Few) per lpf Urine Mucus (Few) Urine Yeast Many H (None Seen) per hpf Ur Culture Indicated? NO. A (NO) Nasal Screen MRSA (PCR) (Negative) Stl C. cayetanensis PCR (Not detect) Stool Rotavirus A PCR (Not detect) Stl Adenov F 40/41 PCR (Not detect) Stool Astrovirus (PCR) (Not detect) Stool Campylobacter PCR (Not detect) Stl C. diff Tox B Gene (Negative) Stl C. diff Tox A/B PCR (Not detect) Stool Cryptosporidium PCR (Not detect) Stl Sh Tox Pr E STEC PCR (Not detect) Stool E coli O157 PCR (Not detect) Stl Enterotoxigenic E PCR (Not detect) Stool EPEC (PCR) (Not detect) Stool EAEC (PCR) (Not detect) Stl E. histolytica PCR (Not detect) Stool Giardia Lamblia PCR (Not detect) Stool Salmonella PCR (Not detect) Stool Sapovirus (PCR) (Not detect) Stl P. shigelloides PCR (Not detect) Stl Shigella/EIEC PCR (Not detect) St Y.enterocolitica PCR (Not detect) Stool Vibrio (PCR) (Not detect) Stl Vibrio cholerae PCR (Not detect) Stl Norovirus GI/GII PCR (Not detect) Stl GI Panel (PCR) Com Chlamy pneumoniae PCR (Not Detect) Adenovirus (PCR) (Not Detect) B. pertussis DNA (PCR) (Not Detect) B.parapertussis DNA PCR (Not Detect) Coronavirus OC43 (PCR) (Not Detect) Coronavirus HKU1 (PCR) (Not Detect) Coronavirus 229E (PCR) (Not Detect) Coronavirus NL63 (PCR) (Not Detect) Hepatitis A IgM Ab Nonreactive (Nonreactive) Hepatitis A Ab Total POSITIVE A (Negative) Hep Bs Antigen Nonreactive (Nonreactive) Hep B Core IgM Ab Nonreactive (Nonreactive) Hepatitis C Ab Screen Nonreactive (Nonreactive) Human Metapneumovir PCR (Not Detect) Influenza A (H1) PCR (Not Detect) Influ A (H1N1/09) PCR (Not Detect) Influenza A (H3) PCR (Not Detect) Influenza A Untype (PCR) (Not Detect) Influenza Type B (PCR) (Not Detect) Mycoplasma pneumon IgG (<=0.09) U/L Mycoplasma pneumon IgM (<=0.76) U/L M.pneumoniae DNA (PCR) (Not Detect) Parainfluenza 1 (PCR) (Not Detect) Parainfluenza 2 (PCR) (Not Detect) Parainfluenza 3 (PCR) (Not Detect) Parainfluenza 4 (PCR) (Not Detect) RSV (PCR) (Not Detect) Entero/Rhino (PCR) (Not Detect) 04/05/18 04/05/18 04/05/18 Range/Units 12:12 09:20 09:20 Urine Color (Yellow) Urine Clarity (Clear) Urine pH (5.0-8.0) pH Units Ur Specific [place] (1.010-1.025) Urine Protein (Neg-Trace) mg/dL Urine Glucose (UA) (Normal) mg/dL Urine Ketones (Negative) mg/dL Urine Blood (Negative) Urine Nitrite (Negative) Urine Bilirubin (Negative) Urine Urobilinogen (Normal) mg/dL Ur Leukocyte Esterase (Negative) Urine Microscopic RBC (0-3) per hpf Urine Microscopic WBC (0-3) per hpf Ur Squamous Epith Cells (None-Few) per lpf Ur Renal Epithelial Cell (None-Few) per hpf Urine Bacteria (None-Few) per hpf Hyaline Casts (None-Few) per lpf Urine Mucus (Few) Urine Yeast (None Seen) per hpf Ur Culture Indicated? (NO) Nasal Screen MRSA (PCR) Negative (Negative) Stl C. cayetanensis PCR (Not detect) Stool Rotavirus A PCR (Not detect) Stl Adenov F 40/41 PCR (Not detect) Stool Astrovirus (PCR) (Not detect) Stool Campylobacter PCR (Not detect) Stl C. diff Tox B Gene (Negative) Stl C. diff Tox A/B PCR (Not detect) Stool Cryptosporidium PCR (Not detect) Stl Sh Tox Pr E STEC PCR (Not detect) Stool E coli O157 PCR (Not detect) Stl Enterotoxigenic E PCR (Not detect) Stool EPEC (PCR) (Not detect) Stool EAEC (PCR) (Not detect) Stl E. histolytica PCR (Not detect) Stool Giardia Lamblia PCR (Not detect) Stool Salmonella PCR (Not detect) Stool Sapovirus (PCR) (Not detect) Stl P. shigelloides PCR (Not detect) Stl Shigella/EIEC PCR (Not detect) St Y.enterocolitica PCR (Not detect) Stool Vibrio (PCR) (Not detect) Stl Vibrio cholerae PCR (Not detect) Stl Norovirus GI/GII PCR (Not detect) Stl GI Panel (PCR) Com Chlamy pneumoniae PCR Not Detected (Not Detect) Adenovirus (PCR) Not Detected (Not Detect) B. pertussis DNA (PCR) Not Detected (Not Detect) B.parapertussis DNA PCR Not Detected (Not Detect) Coronavirus OC43 (PCR) Not Detected (Not Detect) Coronavirus HKU1 (PCR) Not Detected (Not Detect) Coronavirus 229E (PCR) Not Detected (Not Detect) Coronavirus NL63 (PCR) Not Detected (Not Detect) Hepatitis A IgM Ab (Nonreactive) Hepatitis A Ab Total (Negative) Hep Bs Antigen (Nonreactive) Hep B Core IgM Ab (Nonreactive) Hepatitis C Ab Screen (Nonreactive) Human Metapneumovir PCR Not Detected (Not Detect) Influenza A (H1) PCR Not Detected (Not Detect) Influ A (H1N1/09) PCR Not Detected (Not Detect) Influenza A (H3) PCR Not Detected (Not Detect) Influenza A Untype (PCR) Not Detected (Not Detect) Influenza Type B (PCR) Not Detected (Not Detect) Mycoplasma pneumon IgG 0.48 H (<=0.09) U/L Mycoplasma pneumon IgM 0.13 (<=0.76) U/L M.pneumoniae DNA (PCR) Not Detected (Not Detect) Parainfluenza 1 (PCR) Not Detected (Not Detect) Parainfluenza 2 (PCR) Not Detected (Not Detect) Parainfluenza 3 (PCR) Not Detected (Not Detect) Parainfluenza 4 (PCR) Not Detected (Not Detect) RSV (PCR) Not Detected (Not Detect) Entero/Rhino (PCR) Not Detected (Not Detect) 03/29/18 03/27/18 03/26/18 Range/Units 08:40 04:15 20:10 Urine Color Yellow (Yellow) Urine Clarity Clear (Clear) Urine pH 5.5 (5.0-8.0) pH Units Ur Specific [place] 1.023 (1.010-1.025) Urine Protein Negative (Neg-Trace) mg/dL Urine Glucose (UA) Normal (Normal) mg/dL Urine Ketones Negative (Negative) mg/dL Urine Blood Trace H (Negative) Urine Nitrite Negative (Negative) Urine Bilirubin Negative (Negative) Urine Urobilinogen Normal (Normal) mg/dL Ur Leukocyte Esterase Small H (Negative) Urine Microscopic RBC 3-5 H (0-3) per hpf Urine Microscopic WBC 5-15 H (0-3) per hpf Ur Squamous Epith Cells Many H (None-Few) per lpf Ur Renal Epithelial Cell (None-Few) per hpf Urine Bacteria None Seen (None-Few) per hpf Hyaline Casts Few (None-Few) per lpf Urine Mucus (Few) Urine Yeast Test Not Performed (None Seen) per hpf Ur Culture Indicated? NO. A (NO) Nasal Screen MRSA (PCR) (Negative) Stl C. cayetanensis PCR (Not detect) Stool Rotavirus A PCR (Not detect) Stl Adenov F 40/41 PCR (Not detect) Stool Astrovirus (PCR) (Not detect) Stool Campylobacter PCR (Not detect) Stl C. diff Tox B Gene Positive A (Negative) Stl C. diff Tox A/B PCR (Not detect) Stool Cryptosporidium PCR (Not detect) Stl Sh Tox Pr E STEC PCR (Not detect) Stool E coli O157 PCR (Not detect) Stl Enterotoxigenic E PCR (Not detect) Stool EPEC (PCR) (Not detect) Stool EAEC (PCR) (Not detect) Stl E. histolytica PCR (Not detect) Stool Giardia Lamblia PCR (Not detect) Stool Salmonella PCR (Not detect) Stool Sapovirus (PCR) (Not detect) Stl P. shigelloides PCR (Not detect) Stl Shigella/EIEC PCR (Not detect) St Y.enterocolitica PCR (Not detect) Stool Vibrio (PCR) (Not detect) Stl Vibrio cholerae PCR (Not detect) Stl Norovirus GI/GII PCR (Not detect) Stl GI Panel (PCR) Com Chlamy pneumoniae PCR (Not Detect) Adenovirus (PCR) (Not Detect) B. pertussis DNA (PCR) (Not Detect) B.parapertussis DNA PCR (Not Detect) Coronavirus OC43 (PCR) (Not Detect) Coronavirus HKU1 (PCR) (Not Detect) Coronavirus 229E (PCR) (Not Detect) Coronavirus NL63 (PCR) (Not Detect) Hepatitis A IgM Ab (Nonreactive) Hepatitis A Ab Total (Negative) Hep Bs Antigen (Nonreactive) Hep B Core IgM Ab (Nonreactive) Hepatitis C Ab Screen (Nonreactive) Human Metapneumovir PCR (Not Detect) Influenza A (H1) PCR (Not Detect) Influ A (H1N1/09) PCR (Not Detect) Influenza A (H3) PCR (Not Detect) Influenza A Untype (PCR) (Not Detect) Influenza Type B (PCR) (Not Detect) Mycoplasma pneumon IgG 0.30 H (<=0.09) U/L Mycoplasma pneumon IgM 0.06 (<=0.76) U/L M.pneumoniae DNA (PCR) (Not Detect) Parainfluenza 1 (PCR) (Not Detect) Parainfluenza 2 (PCR) (Not Detect) Parainfluenza 3 (PCR) (Not Detect) Parainfluenza 4 (PCR) (Not Detect) RSV (PCR) (Not Detect) Entero/Rhino (PCR) (Not Detect) 03/26/18 03/25/18 Range/Units 20:10 03:15 Urine Color Dark Yellow (Yellow) Urine Clarity Cloudy A (Clear) Urine pH 5.5 (5.0-8.0) pH Units Ur Specific [place] >= 1.030 H (1.010-1.025) Urine Protein 100 H (Neg-Trace) mg/dL Urine Glucose (UA) Normal (Normal) mg/dL Urine Ketones Negative (Negative) mg/dL Urine Blood Moderate H (Negative) Urine Nitrite Negative (Negative) Urine Bilirubin Small H (Negative) Urine Urobilinogen Normal (Normal) mg/dL Ur Leukocyte Esterase Large H (Negative) Urine Microscopic RBC Present (0-3) per hpf Urine Microscopic WBC TNTC H (0-3) per hpf Ur Squamous Epith Cells Present (None-Few) per lpf Ur Renal Epithelial Cell Present (None-Few) per hpf Urine Bacteria Present (None-Few) per hpf Hyaline Casts None Seen (None-Few) per lpf Urine Mucus Present (Few) Urine Yeast Present H (None Seen) per hpf Ur Culture Indicated? YES A (NO) Nasal Screen MRSA (PCR) (Negative) Stl C. cayetanensis PCR Not detected (Not detect) Stool Rotavirus A PCR Not detected (Not detect) Stl Adenov F 40/41 PCR Not detected (Not detect) Stool Astrovirus (PCR) Not detected (Not detect) Stool Campylobacter PCR Not detected (Not detect) Stl C. diff Tox B Gene (Negative) Stl C. diff Tox A/B PCR See reflex test A (Not detect) Stool Cryptosporidium PCR Not detected (Not detect) Stl Sh Tox Pr E STEC PCR Not detected (Not detect) Stool E coli O157 PCR Not detected (Not detect) Stl Enterotoxigenic E PCR Not detected (Not detect) Stool EPEC (PCR) Not detected (Not detect) Stool EAEC (PCR) Not detected (Not detect) Stl E. histolytica PCR Not detected (Not detect) Stool Giardia Lamblia PCR Not detected (Not detect) Stool Salmonella PCR Not detected (Not detect) Stool Sapovirus (PCR) Not detected (Not detect) Stl P. shigelloides PCR Not detected (Not detect) Stl Shigella/EIEC PCR Not detected (Not detect) St Y.enterocolitica PCR Not detected (Not detect) Stool Vibrio (PCR) Not detected (Not detect) Stl Vibrio cholerae PCR Not detected (Not detect) Stl Norovirus GI/GII PCR Not detected (Not detect) Stl GI Panel (PCR) Com See below Chlamy pneumoniae PCR (Not Detect) Adenovirus (PCR) (Not Detect) B. pertussis DNA (PCR) (Not Detect) B.parapertussis DNA PCR (Not Detect) Coronavirus OC43 (PCR) (Not Detect) Coronavirus HKU1 (PCR) (Not Detect) Coronavirus 229E (PCR) (Not Detect) Coronavirus NL63 (PCR) (Not Detect) Hepatitis A IgM Ab (Nonreactive) Hepatitis A Ab Total (Negative) Hep Bs Antigen (Nonreactive) Hep B Core IgM Ab (Nonreactive) Hepatitis C Ab Screen (Nonreactive) Human Metapneumovir PCR (Not Detect) Influenza A (H1) PCR (Not Detect) Influ A (H1N1/09) PCR (Not Detect) Influenza A (H3) PCR (Not Detect) Influenza A Untype (PCR) (Not Detect) Influenza Type B (PCR) (Not Detect) Mycoplasma pneumon IgG (<=0.09) U/L Mycoplasma pneumon IgM (<=0.76) U/L M.pneumoniae DNA (PCR) (Not Detect) Parainfluenza 1 (PCR) (Not Detect) Parainfluenza 2 (PCR) (Not Detect) Parainfluenza 3 (PCR) (Not Detect) Parainfluenza 4 (PCR) (Not Detect) RSV (PCR) (Not Detect) Entero/Rhino (PCR) (Not Detect) - Impressions Impressions Videofluoroscopic Swallow 04/24/18 12:00 IMPRESSION: Penetration of thin, nectar thick, and honey thick liquids and probable aspiration of thin liquids. Please see separate speech pathology report for full discussion of findings and recommendations. D/ / Conrad Medeiros MD / Conrad Medeiros MD Interpreting Provider: Conrad Medeiros MD Exam - Constitutional Vitals: Temp Pulse Resp BP Pulse Ox 98.6 F 75 16 162/70 93 04/24/18 23:47 04/24/18 23:47 04/24/18 23:47 04/24/18 23:47 04/25/18 07:30 General appearance: average body habitus, cooperative, no acute distress - Head Head exam: Present: atraumatic, normal inspection, normocephalic - Eye Eye exam: Present: EOMI, normal appearance, PERRL Pupils: Present: normal accommodation - ENT ENT exam: Present: mucous membranes moist - Neck Neck exam: Present: normal inspection - Respiratory Respiratory exam: Present: rhonchi (Scattered). Absent: rales, wheezes - Cardiovascular Cardiovascular exam: Present: RRR, +S1, +S2 - GI/Abdominal GI/Abdominal exam: Present: normal bowel sounds, soft, tenderness (generalized). Absent: distended Additional comments: Liquid bloody stool noted. Chandra catheter noted to be draining clear yellow urine. - Extremities Exam Extremities exam: Present: normal inspection. Absent: joint swelling, pedal edema, tenderness - Neurological Exam Neurological exam: Present: alert, oriented X3. Absent: no focal deficits (Paralysis noted to the RLE and diminished motor/sensation noted to the RUE.), facial droop, speech deficit - Psychiatric Psychiatric exam: Present: normal affect, normal mood - Skin Skin exam: Present: dry, intact, normal color, warm Consult Discharge Plan - Plan Referrals: Kathy Acosta DO [Resident] - 04/26/18 10:00 am - Attending Attestation I examined this patient and my medical decision-making was reviewed with the Resident Physician. I agree with the documented findings, disposition and treatment plan as described except to the extent set forth below.
[2018-04-25] MEDS: Simethicone 80 MG TAB.CHEW PO PRN (16:03)
--- NOTE | 2018-04-25 18:19 | Internal Med Progress Note ---
<Lucero Salas - Last Filed: 04/25/18 18:16> Hospitalist Progress Note - Encounter Date of Encounter: 04/25/18 Time of Encounter: 10:00 - Subjective Interval History: Ms. Lauren was examined at bedside this morning. She was laying in bed on nasal canula. She is comfortable in bed and states her breathing has improved. Nursing noted bloody bowel movement yesterday. Her blood pressure and heart rate remained stable overnight. Today her hemoglobin is 10.0 after 2 units of blood transfusion. She continues to complain of left lower quadrant pain. She continues to have several episodes of bowel movements, although more formed now. She denied any abdominal pain, nausea, emesis, fever, chills or chest pain. - Exam Vitals: Temp Pulse Resp BP Pulse Ox 99.2 F 92 19 131/66 91 04/25/18 17:00 04/25/18 17:00 04/25/18 17:00 04/25/18 17:00 04/25/18 17:00 Exam: Constitutional: Alert, laying in bed comfortably, on nasal canula HEENT: Normocephalic, atraumatic, moist mucus membranes Heart: Normal, regular rate and rhythm, no murmurs Lungs: Diminished crackles at bilateral lower lung bases, no wheezing or rhonchi Abdomen: Soft, normal bowel sounds, left lower quadrant tenderness Extremities: No edema of lower extremity or upper extremities, warm, nontender Skin: Skin warm and dry, no lesions, no rashes, no jaundice Psych: thought content congruent, appropriate affect Neurological: Alert and oriented x 3, 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 Likely due to volume overload, CHF exacerbation. This morning she is comfortable in bed and notes her breathing has improved. Plan: -Continue supplemental oxygen -Continue duoneb Q4h prn -Continue mucinex -Continue 40 mg prednisone daily -Hold 40 mg IV furosemide BID due to npo -Pulmonology consulted (2) COPD (chronic obstructive pulmonary disease) Current Visit: Yes Status: Chronic Assessment and Plan: History of COPD. currently comfortable on nasal cannula. Denies any worsening shortness of breath. Plan: -Continue with duoneb Q4h prn -Continue to wean O2 supplementation -Continue mucinex -Continue prednisone 40 mg IV daily -Pulmonology consulted (3) Pneumonia Current Visit: Yes Status: Suspected Assessment and Plan: CT chest on 04/03 showed multifocal PNA, greatest in the LLL. Patient had worsening left-sided infiltrates on 04/13. Repeat CT on 04/18/18 showed increasing multifocal airspace disease suggesting pneumonia and small pleural effusions. Acute hypoxic exacerbation on 04/23/18, chest xray looks better than previous with decreased opacity. Plan: -Continue zosyn (day 14 since restarted, received 12 days previously) -IV vancomycin stopped given her poor renal function and has received 8 days of dose, her MRSA swab is negative -Renally dose antibiotics -Pulmonology consulted -Continue mucinex -CBC in the morning (4) C. difficile colitis Current Visit: Yes Status: Resolved Assessment and Plan: Diarrhea ongoing, hepatitis A IgM is negative so acute phase of hepatitis A is resolved. Continues to have many bowel movements daily, although more formed. She did not show any evidence of pseudomembranous colitis and toxic megacolon during sigmoidoscopy on 04/12. Plan: -ID recommends continuing oral vancomycin, day 29 -Infectious disease recommends stopping oral vancomycin on 04/26/18 -Continue to monitor stool for changes in consistency -Continue probiotics -Continue to monitor vitals and CBC (5) Diabetes type 2, controlled Current Visit: Yes Status: Chronic Assessment and Plan: Her glucose today was 93 this morning Currently nothing by mouth due to recent GI bleed Plan: Continue to hold long-acting insulin Continue sliding scale per protocol Continue to monitor (6) Anemia Current Visit: Yes Status: Suspected Assessment and Plan: Overnight noted to have GI bleed and hemoglobin was 7.7 at the time. The day prior it was 8.8. Received 2 units of blood transfusion and this morning her hemoglobin was 10.0. Plan: Continue to monitor GI has been reconsulted Continue NPO diet (7) Pulmonary nodule Current Visit: Yes Status: Acute Assessment and Plan: CT of the chest noted a small lobulated nodule on the right upper lung lobe posteriorly Plan: Need to be followed to resolution after pneumonia resolves outpatient (8) Hepatitis A Current Visit: Yes Status: Resolved Assessment and Plan: Tested positive on 04/12. Because of the long incubation period of hepatitis A, she may have had hepatitis A prior to admission but liver enzymes worsened on 04/12. She had Hep A antibody positive on 04/12 and repeat Hep A IgM was negative on 04/17, so no active Hep A infection. Plan: Continue to monitor (9) Sepsis Current Visit: Yes Status: Resolved Assessment and Plan: Resolved. She progressed to septic shock on 04/12 and required vasopressors for one day. Her blood cultures remained negative. Likely source secondary to pneumonia and hepatitis A. Blood cultures negative from 03/25 and negative 04/11. Plan: Continue pneumonia management, ID recommends continuing zosyn--day 14 total doses Continue monitoring vitals Repeat chest xray on 04/17 shows bibasilar consolidation Chest xray today shows decreased left pleural effusion with improvement of the left lower lobe opacity CT chest on 04/18 shows increased multifocal airspace disease suggesting pneumonia CBC in the morning (10) Shock liver Current Visit: Yes Status: Resolved Assessment and Plan: Resolved was likely due to sepsis and hepatitis A. (11) NIGEL (acute kidney injury) Current Visit: Yes Status: Acute Assessment and Plan: Creatinine of 1.44 today, stable for the past three days. Dialysis catheter removed. Output of 675 yesterday and 0 output today. Plan: -Furosemide on hold given she on NPO diet -BMP in the morning (12) Hypertension Current Visit: Yes Status: Acute Assessment and Plan: Chronic history of HTN, likely CKD stage 3b is contributing to it. Blood pressure stable today Plan: Continue 10 mg amlodapine Holding furosemide Continue to monitor (13) Abdominal distension (gaseous) Current Visit: Yes Status: Acute Assessment and Plan: Likely due to terminal gauger antibiotic use and recently immodium was started. KUB three days ago showed nonspecific bowel gas pattern with no evidence for obstruction and severe atherosclerotic disease. Recent episode of GI bleed. Tenderness in the left lower quadrant. Plan: Stopped immodium three days ago Continue simethicone PRN Continue culturelle GI reconsulted (14) DVT prophylaxis Current Visit: Yes Status: Acute Assessment and Plan: SCDs given GI bleed (15) GI bleed Current Visit: Yes Status: Acute Assessment and Plan: Overnight she had a bloody bowel movement noted by nursing. Her hemoglobin dropped from 8.8-7.7 and she was asymptomatic and had no changes in her vitals or mental status. The bowel movements today were visualized and noted as dark. Plan: GI reconsulted Stopped subcutaneous heparin Aspirin and Plavix on hold NPO except medications - Time Spent with Patient Total time spent is greater than 50% in coordination of care (as documented) at patient's floor/unit and/or counseling patient: less than 15 minutes Plan of Care Discussed with: patient Internal Medicine: Result - Labs CBC & Chem 7: 04/25/18 07:55 04/25/18 06:15 Labs: Short CBC 04/24/18 04/25/18 04/25/18 Range/Units 20: 06:15 07:55 WBC 25.6 H (4.3-11.1) K/mcL Hgb 7.7 L 9.5 L D 10.0 L (11.5-15.4) g/dL Hct 25.1 L 29.9 L 30.9 L (35.3-44.9) % Plt Count 219 (140-400) K/mcL Neutrophils # 23.6 H (1.6-8.9) K/mcL BMP 04/25/18 06:15 Sodium 143 Potassium 4.0 Chloride 106 Carbon Dioxide 30 H BUN 49 H Creatinine 1.44 H Glucose 93 Calcium 8.3 L - ABG Interpretation ABG results: ABG ABG pH 7.36 pH Units (7.32-7.45) 04/23/18 08:01 ABG pCO2 51 mmHg (35-45) H 04/23/18 08:01 ABG pO2 48 mmHg (85-104) L* 04/23/18 08:01 ABG O2 Saturation 81 % (95-98) L 04/23/18 08:01 PT/INR, D-dimer PT 13.2 Seconds (9.4-12.1) H 04/19/18 06:20 Consult Discharge Plan - Plan Referrals: Kathy Acosta DO [Resident] - 04/26/18 10:00 am <Alex Parham - Last Filed: 04/26/18 08:37> Hospitalist Progress Note - Exam Vitals: Temp Pulse Resp BP Pulse Ox 99.4 F 86 16 168/72 96 04/26/18 07:47 04/26/18 07:47 04/26/18 07:47 04/26/18 07:47 04/26/18 07:47 - Assessment and Plan (1) COPD (chronic obstructive pulmonary disease) Current Visit: Yes Status: Chronic (2) Pneumonia Current Visit: Yes Status: Suspected (3) C. difficile colitis Current Visit: Yes Status: Resolved (4) Diabetes type 2, controlled Current Visit: Yes Status: Chronic (5) Anemia Current Visit: Yes Status: Suspected (6) Pulmonary nodule Current Visit: Yes Status: Acute (7) Hepatitis A Current Visit: Yes Status: Resolved (8) Sepsis Current Visit: Yes Status: Resolved (9) DVT prophylaxis Current Visit: Yes Status: Acute (10) Shock liver Current Visit: Yes Status: Resolved (11) NIGEL (acute kidney injury) Current Visit: Yes Status: Acute (12) Hypertension Current Visit: Yes Status: Acute (13) Abdominal distension (gaseous) Current Visit: Yes Status: Acute (14) Acute and chronic respiratory failure Current Visit: Yes Status: Resolved (15) GI bleed Current Visit: Yes Status: Acute - Time Spent with Patient Total time spent is greater than 50% in coordination of care (as documented) at patient's floor/unit and/or counseling patient: Internal Medicine: Result - Labs CBC & Chem 7: 04/26/18 05:13 04/26/18 05:13 Labs: Short CBC 04/25/18 04/25/18 04/25/18 Range/Units 06:15 07:55 20:00 WBC 25.6 H (4.3-11.1) K/mcL Hgb 9.5 L D 10.0 L 8.3 L D (11.5-15.4) g/dL Hct 29.9 L 30.9 L 26.1 L (35.3-44.9) % Plt Count 219 (140-400) K/mcL Neutrophils # 23.6 H (1.6-8.9) K/mcL 04/26/18 Range/Units 05:13 WBC 30.3 H* (4.3-11.1) K/mcL Hgb 7.9 L (11.5-15.4) g/dL Hct 25.3 L (35.3-44.9) % Plt Count 218 (140-400) K/mcL Neutrophils # 28.0 H (1.6-8.9) K/mcL BMP 04/25/18 04/26/18 06:15 05:13 Sodium 143 148 H Potassium 4.0 3.5 Chloride 106 110 H Carbon Dioxide 30 H 32 H BUN 49 H 53 H Creatinine 1.44 H 1.42 H Glucose 93 45 L Calcium 8.3 L 8.5 L - ABG Interpretation ABG results: ABG ABG pH 7.36 pH Units (7.32-7.45) 04/23/18 08:01 ABG pCO2 51 mmHg (35-45) H 04/23/18 08:01 ABG pO2 48 mmHg (85-104) L* 04/23/18 08:01 ABG O2 Saturation 81 % (95-98) L 04/23/18 08:01 PT/INR, D-dimer PT 13.2 Seconds (9.4-12.1) H 04/19/18 06:20 - Attending Attestation I examined this patient and my medical decision-making was reviewed with the Resident Physician Dr. Salas. I agree with the documented findings, disposition and treatment plan as described except to the extent set forth below. Ms. Lauren is a 63 year old female history of COPD on 3 L oxygen at home admitted here with Sepsis, Pneumonia, developed C. Diff colitis and respiratory failure was transferred to ICU and moved to tele again when pt got stabilized. Pt went into acute hypoxic resp failure on 04/23/18. Now she is breathing comfortably on 4 lit O2. She denied any CP. She i s alert, awake and O x 3. She starred having melena / dark colored stools since y/d. Gen: Mild Resp distress Chest: Diminished BS b/l, crackles + Rales +, Moderate wheezing Heart: S1S2+ RRR Ext: No edema a/p 1. Acute on chronic hypoxic resp failure 2. Acute COPD exacerbation 3. Acute Pneumonia - bacterial 4. Sepsis Pulm on board Will hold Lasix for today since she is going to NPO CXR showed improving multi focal pneumonia Cont broad spec abx start tapering steroids Duoneb Encouraged frequent IS 5. C. Diff colitis cont Vancomycin 6. Acute GI bleed / melena possible upper GI bleed Talked to GI , planning on EGD in AM close monitoring of Hb Held ASA, Plavix and SQ heparin SCD's for DVT prophylaxis <Lucero Salas - Last Filed: 04/25/18 18:16> (2) COPD (chronic obstructive pulmonary disease) Qualifiers: COPD type: chronic bronchitis Chronic bronchitis type: mucopurulent Qualified Code(s): J41.1 - Mucopurulent chronic bronchitis (3) Pneumonia Qualifiers: Pneumonia type: due to other aerobic Gram-negative bacteria Laterality: bilateral Lung location: lower lobe of lung Qualified Code(s): J15.6 - Pneumonia due to other Gram-negative bacteria (5) Diabetes type 2, controlled Qualifiers: Diabetes mellitus terminal gauger insulin use: with terminal gauger use Diabetes mellitus complication status: with hyperglycemia Qualified Code(s): E11.65 - Type 2 diabetes mellitus with hyperglycemia; Z79.4 - [facility] (current) use of insulin (6) Anemia Qualifiers: Anemia type: iron deficiency Iron deficiency anemia type: chronic blood loss Qualified Code(s): D50.0 - Iron deficiency anemia secondary to blood loss (chronic) (8) Hepatitis A Qualifiers: Hepatic coma status: without hepatic coma Qualified Code(s): B15.9 - Hepatitis A without hepatic coma (9) Sepsis Qualifiers: Sepsis type: sepsis due to unspecified organism Qualified Code(s): A41.9 - Sepsis, unspecified organism (12) Hypertension Qualifiers: Hypertension type: essential hypertension Qualified Code(s): I10 - Essential (primary) hypertension <ThallapaneniRambabu - Last Filed: 04/26/18 08:37> (1) COPD (chronic obstructive pulmonary disease) Qualifiers: COPD type: chronic bronchitis Chronic bronchitis type: mucopurulent Qualified Code(s): J41.1 - Mucopurulent chronic bronchitis (2) Pneumonia Qualifiers: Pneumonia type: due to other aerobic Gram-negative bacteria Laterality: bilateral Lung location: lower lobe of lung Qualified Code(s): J15.6 - Pneumonia due to other Gram-negative bacteria (4) Diabetes type 2, controlled Qualifiers: Diabetes mellitus fpc insulin use: with fpc use Diabetes mellitus complication status: with hyperglycemia Qualified Code(s): E11.65 - Type 2 diabetes mellitus with hyperglycemia; 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
[2018-04-25] MEDS: traZODone 50 MG TABLET PO SCH (20:57)
[2018-04-25 21:47] LABS: Hematocrit 26.1 % (35.3-44.9); Hemoglobin 8.3 g/dL (11.5-15.4)
[2018-04-26] MEDS: Ipratropium/Albuterol Neb 3 ML IH SCH ×6 (03:41→23:18)
[2018-04-26 05:28] LABS: Basophils % 0.1 %; Eosinophils % 0.1 %; Immature Granulocytes % 0.7 % (0-4); Nucleated Red Blood Cells 0.1 /100 WBC (0)
[2018-04-26 05:29] LABS: Hematocrit 25.3 % (35.3-44.9); Hemoglobin 7.9 g/dL (11.5-15.4); Lymphocytes # 1.4 K/mcL (0.6-4.6); Lymphocytes % 4.5 %; Mean Corpuscular HGB Conc 31.2 g/dL (31.6-35.5); Mean Corpuscular Hemoglobin 26.4 pg (28.0-33.3); Mean Corpuscular Volume 84.6 fL (83.0-100.0); Mean Platelet Volume 13.4 fL (9.4-12.4); Monocytes # 0.7 K/mcL (0.0-1.3); Monocytes % 2.2 %; Platelet Count 218 K/mcL (140-400); Red Blood Count 2.99 M/mcL (3.82-4.97); Red Cell Distribution Width 19.2 % (11.5-14.5); Segmented Neutrophils % 92.4 %
[2018-04-26 05:47] LABS: Calcium 8.5 mg/dL (8.6-10.3); Magnesium 1.6 mg/dL (1.6-2.6); Potassium 3.5 mEq/L (3.5-5.1)
[2018-04-26 06:27] LABS: Reactive Lymphocytes Present (Not Present)
[2018-04-26 06:28] LABS: Anisocytosis 2+ (Not Present); Hypochromasia Present (Not Present); Microcytosis Present (Not Present); Platelet Estimate Normal (Normal)
[2018-04-26] MEDS: Beclomethasone 40mcg REDIHALER IH SCH ×2 (07:44→20:09)
[2018-04-26] MEDS: Insulin LISPRO 300 UNITS/3 ML VIAL SQ SCH ×4 (07:51→22:15)
[2018-04-26] MEDS: Insulin DETEMIR 100 UNIT/ML X5UNITS SQ SCH (07:51)
[2018-04-26] MEDS ORDERED: *HR* Propofol 200 MG/20 ML VIAL IVP ONE (08:08)
[2018-04-26] MEDS ORDERED: Lidocaine -MPF 2% 2 ML VIAL ONE (08:08)
--- NOTE | 2018-04-26 08:58 | Anesthesia Evaluation PreOp ---
Date of Encounter: 04/26/18 Time of Encounter: 09:00 - Past History Planned Operation: EGD Cardiac History: HTN, Hyperlipidemia, Other (Anemia) Pulmonary History: COPD, Other (Respiratory Failure) INSTITUTIONAL AIDE History: CVA (Stroke X4 Rt hemiparesis) Other Medical History: Hepatic, Renal (CKD), Other (GI Bleed) Alcohol Use: none Drug use: none Medications and Allergies Aspirin [Lo-Dose Aspirin EC] 81 mg PO DAILY 01/28/17 [History] Cholecalciferol (Vitamin D3) [Vitamin D3] 1,000 unit PO DAILY 01/28/17 [History] Clopidogrel [Plavix] 75 mg PO DAILY 01/28/17 [History] Furosemide [Lasix] 40 mg PO DAILY 01/28/17 [History] Guaifenesin [Mucinex] 600 mg PO BID PRN 01/28/17 [History] Insulin ASPART [Novolog Flexpen] 10 unit SQ TIDAC MDD plus sliding sale 01/28/17 [History] Insulin Glargine,Hum.rec.anlog [Lantus Solostar] 25 unit SQ HS 01/28/17 [History] Ipratropium/Albuterol Neb [Duoneb] 3 ml IH Q6HR PRN 01/28/17 [History] Lisinopril [Zestril] 20 mg PO DAILY 01/28/17 [History] Metformin HCl [Glucophage] 1,000 mg PO BID 01/28/17 [History] Metoprolol [Lopressor] 100 mg PO BID 01/28/17 [History] Ropinirole HCl [Requip] 0.25 - 0.5 mg PO HS 01/28/17 [History] Sertraline [Zoloft] 50 mg PO DAILY 01/28/17 [History] Tiotropium [Spiriva] 1 cap IH DAILY 01/28/17 [History] Acetaminophen [Tylenol] 500 mg PO Q4H PRN 03/26/18 [History] Amitriptyline [Elavil] 25 mg PO HS 03/26/18 [History] Amlodipine Besylate 10 mg PO DAILY 03/26/18 [History] Atorvastatin [Lipitor] 40 mg PO HS 03/26/18 [History] Gabapentin [Neurontin] 300 mg PO BID 03/26/18 [History] Ibuprofen [Ibu] 600 mg PO Q6H PRN 03/26/18 [History] Multivitamin [One Daily Multivitamin] 1 tab PO DAILY 03/26/18 [History] Pantoprazole Sodium [Protonix] 40 mg PO DAILY 03/26/18 [History] SitaGLIPtin [Januvia] 100 mg PO DAILY 03/26/18 [History] Albuterol Neb [Proventil Neb] 2.5 mg IH Q4-6H PRN 03/27/18 [History] Beclomethasone Dip 40mcg REDIH [Qvar 40 mcg REDIHALER] 1 puff IH BID 03/27/18 [History] Calcium Carb/Magnesium Hydrox [Antacid Extra Strngth Tab Chew] 1 tab PO DAILY 03/27/18 [History] Allergy/AdvReac Type Severity Reaction Status Date / Time Iodinated Contrast- Oral and Allergy Anaphylaxis Verified 03/26/18 14:33 IV Dye [Iodinated Contrast Media - Oral and] - Meds/Allergy Pre-op Review Medications Reviewed: Yes Allergies Reviewed: Yes Beta Blockers on Current Med List: No Anesthesia Results - Labs 04/26/18 05:13 04/26/18 05:13 Laboratory Tests 04/13/18 04/19/18 04/26/18 03:05 06:20 05:13 Hgb 7.9 L Hct 25.3 L Plt Count 218 PT 13.2 H INR 1.2 APTT 37.0 H Sodium Potassium BUN Creatinine 04/26/18 05:13 Hgb Hct Plt Count PT INR APTT Sodium 148 H Potassium 3.5 BUN 53 H Creatinine 1.42 H - Imaging EKG: report reviewed (SR) Additional studies: ECHO EF 70%, no pulm htn Anesthesia Exam Vital Signs/O2 Sat/Glucose, Most Current Temp Pulse Resp BP Pulse Ox 04/26/18 08:52 89 16 125/58 96 04/26/18 07:47 99.4 F 86 16 168/72 96 Height: 5'6 Weight: 138 lbs NPO (# of Hours): MN Pain Scale: 0 - HEENT Pupil (Motor): Pupils equal, EOMI Mallampati: III Teeth: Missing, Poor dentition Oral Opening: Less than or equal to 3 - INSTITUTIONAL AIDE LOC: Oriented INSTITUTIONAL AIDE Motor: Normal LUE, Normal LLE, Normal Face, Deficit RUE (weakness), Deficit RLE INSTITUTIONAL AIDE Sensory: Normal: RUE, LUE, RLE, LLE, Face - Cardiac Rhythm: Regular Murmur: None JVD: No Carotid Bruit: No - Pulmonary Breath Sounds: bilateral Clear Respiratory Effort: Symmetrical Anesthesia Assess/Plan ASA Score: 4 (CVA Chronic Resp Failure CKD) Modified [place] Scale for Level of Consciousness: Cooperative, oriented, and tranquil Anesthetic Plan: MAC Monitoring Plan: Standard Monitors Recovery Plan: Other (Discussed MAC, agrees to proceed)
[2018-04-26] MEDS ORDERED: MethylPREDNISolone 40 MG/ML VIAL IVP SCH (09:00)
[2018-04-26] MEDS: 0.9 % Sodium Chloride 500 ML IVC SCH (09:01)
[2018-04-26] MEDS: Gabapentin 100 MG CAPSULE PO SCH ×3 (10:25→20:18)
[2018-04-26] MEDS: Metoprolol 100 MG TABLET PO SCH ×2 (10:25→20:18)
[2018-04-26] MEDS: Lactobacillus 1 EACH CAP.SPRINK PO SCH ×2 (10:25→20:18)
[2018-04-26] MEDS: amLODIPine 5 MG TABLET PO SCH (10:25)
[2018-04-26] MEDS: Sucralfate 1 GM TABLET PO SCH ×3 (10:26→16:57)
[2018-04-26] MEDS: Acetaminophen 325 MG TABLET PO PRN ×2 (10:35→20:18)
--- NOTE | 2018-04-26 10:39 | Infectious Disease Progress No ---
Date of Encounter: 04/26/18 Time of Encounter: 10:37 - Assessment and Plan (1) Sepsis Current Visit: No Status: Acute Progressed to septic shock requiring vasopressors with end organ damage. Likely secondary to pneumonia and Hepatitis A. WBC continues to trend up, but could be secondary to steroids or reactive from GI bleed. No toxic granules or dohle bodies noted. Vasopressors off. Hypothermia has resolved. Blood cultures obtained 03/25/18 are negative 2 sets. Repeat blood cultures drawn 04/11/18 are negative x [address] of the chest, abdomen, and pelvis. Unable to use contrast due to patient allergy. Get peripheral smear. Qualifiers: Sepsis type: sepsis due to unspecified organism Qualified Code(s): A41.9 - Sepsis, unspecified organism (2) Pneumonia Current Visit: Yes Status: Acute Location: Multifocal, greatest in the left lower lobe. Causative organism: Unclear. No evidence of aspiration noted on exam. Respiratory infectious panel was negative. Strep pneumococcal and legionella urinary antigens were negative. The patient has been able to provide us with 2 sputum cultures that are both negative. CT chest 04/08/18 showed improvement, but CT abdomen and pelvis 04/11/18 showed persistent LLL pneumonia. Completed 12 days of Zosyn and 6 days of Vanc. Clinically, patient appears to have improved. She is requiring less oxygen and is more alert. CT of the chest completed 04/18/18 showed increasing multifocal airspace disease suggesting pneumonia. Pulmonology re-evaluation noted and appreciated. 04/23/18 patient became hypoxic and required BIPAP. Per pulmonary, likely pulmonary edema rather than pneumonia. CXR 04/23/18 showed resolving PNA. Vancomycin stopped by the primary team (completed 8 days). Completed 13 days of Zosyn. Continue to observe off antibiotics. Qualifiers: Pneumonia type: due to unspecified organism Laterality: bilateral Lung location: lower lobe of lung Qualified Code(s): J18.1 - Lobar pneumonia, unspecified organism (3) C. difficile colitis Current Visit: Yes Status: Resolved Severe. Clinically, the patient's stools are more formed, but she is still stooling several times per day. Repeat CT of the abdomen and pelvis showed findings consistent with ileus and gastroenteritis on 04/08/[address] of the abdomen and pelvis 04/11/18 did not show any bowel thickening or toxic megacolon, but radiologist reports concern for ischemic bowel due to severe calcification of the mesenteric circulation. Status post colonoscopy 04/12/18 that was negative for pseudomembranous or toxic megacolon. IV Flagyl stopped by the primary team. Completed 29 days of PO Vancomycin. (4) Abdominal pain Current Visit: Yes Status: Acute Secondary to C diff colitis and gastroenteritis and Hepatitis A. GI consulted. Appreciate recommendations. LFTs this morning markedly elevated and lactic acid 9. CT abdomen and pelvis on 04/03/2018: Cholelithiasis, small amount of gas within the bladder. Decreased small bowel distention with small bowel wall thickening in the left upper quadrant; no toxic megacolon. Repeat CT of the abdomen and pelvis 04/11/18 showed findings concerning for ischemic bowel. Status post colonoscopy 04/12/15 that was negative for pseudomembranous colitis or toxic megacolon. Had recurrence of GI bleed overnight with melenic stools. GI consulted. Status post EGD this morning that showed gastritis per nursing, pe nding official GI note. Possible colonoscopy per the primary team. If concern for infectious colitis, consider transfer to tertiary care center for fecal transplant, otherwise management per the GI team. Qualifiers: Abdominal location: generalized Qualified Code(s): R10.84 - Generalized abdominal pain (5) Rectal bleeding Current Visit: Yes Status: Acute Patient started having bloody stools overnight. Etiology unclear. Not sure that it is from the C. diff since her stools are formed. Status post colonoscopy 04/12/18 that was negative for bleeding. Status post recurrence of GI bleed last night. GI consulted. Management and transfusion parameters per the primary team. (6) Elevated transaminase level Current Visit: Yes Status: Resolved Likely secondary to Hepatitis A vs. shock liver. Resolved. Continue supportive care. (7) Lactic acidosis Current Visit: Yes Status: Resolved Likely secondary to sepsis. Improved. (8) Acute kidney injury Current Visit: Yes Status: Acute Etiology unclear. Serum creatinine trending down. Nephrology consulted and signed off. Continue to trend. CRRT started 04/12/18, discontinued 04/15/18. (9) Hepatitis A Current Visit: Yes Status: Resolved Hepatitis A antibody positive. Likely contributing to the elevated LFTs. Continue to trend LFTs and continue supportive care. Qualifiers: Hepatic coma status: without hepatic coma Qualified Code(s): B15.9 - Hepatitis A without hepatic coma - Subjective Interval history: Patient seen and examined status post EGD this morning. Continues to have melena stools. States breathing is better. Still has chronic productive cough. Reports gassy abdominal pain, but denies vomiting or diarrhea and states she is hungry. Continues to report multiple stools per day, but more formed per nursing and bloody. Denies oral thrush or skin rashes. Denies pain except the abdomen. Infect Dis PN-Objective Data - Labs CBC & Chem 7: 04/26/18 10:35 04/26/18 05:13 Labs: Laboratory Results - last 24 hr 04/25/18 04/25/18 04/25/18 06:15 06:15 07:55 WBC 25.6 H RBC 3.56 L Hgb 9.5 L D 10.0 L Hct 29.9 L 30.9 L MCV 84.0 MCH 26.7 L MCHC 31.8 RDW 19.2 H Plt Count 219 MPV 13.3 H Immature Gran % 0.9 Seg Neutrophils % 92.0 Lymphocytes % 4.6 Monocytes % 2.3 Eosinophils % 0.0 Basophils % 0.2 Neutrophils # 23.6 H Lymphocytes # 1.2 Monocytes # 0.6 Eosinophils # 0.0 Basophils # 0.1 Nucleated RBCs/100 WBC 0.1 H Reactive Lymphocytes Platelet Estimate Normal Immature Plt Fraction 22.1 H Hypochromasia Present A Anisocytosis Microcytosis Sodium 143 Potassium 4.0 Chloride 106 Carbon Dioxide 30 H BUN 49 H Creatinine 1.44 H Est GFR ( Amer) 44 L Est GFR (Non-Af Amer) 37 L BUN/Creatinine Ratio 34 H Glucose 93 POC Glucose Calculated Osmolality 309 H Calcium 8.3 L Magnesium 04/25/18 04/25/18 04/25/18 07:56 11:23 16:45 WBC RBC Hgb Hct MCV MCH MCHC RDW Plt Count MPV Immature Gran % Seg Neutrophils % Lymphocytes % Monocytes % Eosinophils % Basophils % Neutrophils # Lymphocytes # Monocytes # Eosinophils # Basophils # Nucleated RBCs/100 WBC Reactive Lymphocytes Platelet Estimate Immature Plt Fraction Hypochromasia Anisocytosis Microcytosis Sodium Potassium Chloride Carbon Dioxide BUN Creatinine Est GFR ( Amer) Est GFR (Non-Af Amer) BUN/Creatinine Ratio Glucose POC Glucose 88 160 H 113 H Calculated Osmolality Calcium Magnesium 04/25/18 04/26/1818 20:00 05:13 05:13 WBC 30.3 H* RBC 2.99 L Hgb 8.3 L D 7.9 L Hct 26.1 L 25.3 L MCV 84.6 MCH 26.4 L MCHC 31.2 L RDW 19.2 H Plt Count 218 MPV 13.4 H Immature Gran % 0.7 Seg Neutrophils % 92.4 Lymphocytes % 4.5 Monocytes % 2.2 Eosinophils % 0.1 Basophils % 0.1 Neutrophils # 28.0 H Lymphocytes # 1.4 Monocytes # 0.7 Eosinophils # 0.0 Basophils # 0.0 Nucleated RBCs/100 WBC 0.1 H Reactive Lymphocytes Present A Platelet Estimate Normal Immature Plt Fraction Hypochromasia Present A Anisocytosis 2+ A Microcytosis Present A Sodium 148 H Potassium 3.5 Chloride 110 H Carbon Dioxide 32 H BUN 53 H Creatinine 1.42 H Est GFR ( Amer) 45 L Est GFR (Non-Af Amer) 37 L BUN/Creatinine Ratio 37 H Glucose 45 L POC Glucose Calculated Osmolality 317 H Calcium 8.5 L Magnesium 1.6 04/26/18 04/26/18 04/26/18 05:43 06:03 06:26 WBC RBC Hgb Hct MCV MCH MCHC RDW Plt Count MPV Immature Gran % Seg Neutrophils % Lymphocytes % Monocytes % Eosinophils % Basophils % Neutrophils # Lymphocytes # Monocytes # Eosinophils # Basophils # Nucleated RBCs/100 WBC Reactive Lymphocytes Platelet Estimate Immature Plt Fraction Hypochromasia Anisocytosis Microcytosis Sodium Potassium Chloride Carbon Dioxide BUN Creatinine Est GFR ( Amer) Est GFR (Non-Af Amer) BUN/Creatinine Ratio Glucose POC Glucose 46 L* 100 H 86 Calculated Osmolality Calcium Magnesium 04/26/18 07:37 WBC RBC Hgb Hct MCV MCH MCHC RDW Plt Count MPV Immature Gran % Seg Neutrophils % Lymphocytes % Monocytes % Eosinophils % Basophils % Neutrophils # Lymphocytes # Monocytes # Eosinophils # Basophils # Nucleated RBCs/100 WBC Reactive Lymphocytes Platelet Estimate Immature Plt Fraction Hypochromasia Anisocytosis Microcytosis Sodium Potassium Chloride Carbon Dioxide BUN Creatinine Est GFR ( Amer) Est GFR (Non-Af Amer) BUN/Creatinine Ratio Glucose POC Glucose 59 L Calculated Osmolality Calcium Magnesium Cultures: Cultures 04/11/18 11:55 Blood Culture - Final Peripheral Venipuncture No growth. Final report. 04/11/18 11:53 Blood Culture - Final Peripheral Venipuncture No growth. Final report. 04/05/18 13:38 Sputum Culture - Final Sputum 04/05/18 16:38 Sputum Culture - Final Sputum 03/25/18 04:25 Blood Culture - Final Peripheral Venipuncture No growth. Final report. 03/25/18 04:40 Blood Culture - Final Peripheral Venipuncture No growth. Final report. 03/27/18 04:15 Legionella Antigen - Final Urine,[place] Streptococcus pneumoniae Antigen (M - Final 03/25/18 03:15 Urine Culture - Final Urine,Clean Catch Serology 04/17/18 04/12/18 04/11/18 Range/Units 03:50 17:14 20:37 Urine Color Dark Yellow (Yellow) Urine Clarity Hazy A (Clear) Urine pH 5.0 (5.0-8.0) pH Units Ur Specific [place] 1.018 (1.010-1.025) Urine Protein Trace (Neg-Trace) mg/dL Urine Glucose (UA) Normal (Normal) mg/dL Urine Ketones Negative (Negative) mg/dL Urine Blood Negative (Negative) Urine Nitrite Negative (Negative) Urine Bilirubin Negative (Negative) Urine Urobilinogen Normal (Normal) mg/dL Ur Leukocyte Esterase Small H (Negative) Urine Microscopic RBC (0-3) per hpf Urine Microscopic WBC 15-30 H (0-3) per hpf Ur Squamous Epith Cells Many H (None-Few) per lpf Ur Renal Epithelial Cell (None-Few) per hpf Urine Bacteria Many H (None-Few) per hpf Hyaline Casts Few (None-Few) per lpf Urine Mucus (Few) Urine Yeast Many H (None Seen) per hpf Ur Culture Indicated? NO. A (NO) Nasal Screen MRSA (PCR) (Negative) Stl C. cayetanensis PCR (Not detect) Stool Rotavirus A PCR (Not detect) Stl Adenov F 40/41 PCR (Not detect) Stool Astrovirus (PCR) (Not detect) Stool Campylobacter PCR (Not detect) Stl C. diff Tox B Gene (Negative) Stl C. diff Tox A/B PCR (Not detect) Stool Cryptosporidium PCR (Not detect) Stl Sh Tox Pr E STEC PCR (Not detect) Stool E coli O157 PCR (Not detect) Stl Enterotoxigenic E PCR (Not detect) Stool EPEC (PCR) (Not detect) Stool EAEC (PCR) (Not detect) Stl E. histolytica PCR (Not detect) Stool Giardia Lamblia PCR (Not detect) Stool Salmonella PCR (Not detect) Stool Sapovirus (PCR) (Not detect) Stl P. shigelloides PCR (Not detect) Stl Shigella/EIEC PCR (Not detect) St Y.enterocolitica PCR (Not detect) Stool Vibrio (PCR) (Not detect) Stl Vibrio cholerae PCR (Not detect) Stl Norovirus GI/GII PCR (Not detect) Stl GI Panel (PCR) Com Chlamy pneumoniae PCR (Not Detect) Adenovirus (PCR) (Not Detect) B. pertussis DNA (PCR) (Not Detect) B.parapertussis DNA PCR (Not Detect) Coronavirus OC43 (PCR) (Not Detect) Coronavirus HKU1 (PCR) (Not Detect) Coronavirus 229E (PCR) (Not Detect) Coronavirus NL63 (PCR) (Not Detect) Hepatitis A IgM Ab Nonreactive (Nonreactive) Hepatitis A Ab Total POSITIVE A (Negative) Hep Bs Antigen Nonreactive (Nonreactive) Hep B Core IgM Ab Nonreactive (Nonreactive) Hepatitis C Ab Screen Nonreactive (Nonreactive) Human Metapneumovir PCR (Not Detect) Influenza A (H1) PCR (Not Detect) Influ A (H1N1/09) PCR (Not Detect) Influenza A (H3) PCR (Not Detect) Influenza A Untype (PCR) (Not Detect) Influenza Type B (PCR) (Not Detect) Mycoplasma pneumon IgG (<=0.09) U/L Mycoplasma pneumon IgM (<=0.76) U/L M.pneumoniae DNA (PCR) (Not Detect) Parainfluenza 1 (PCR) (Not Detect) Parainfluenza 2 (PCR) (Not Detect) Parainfluenza 3 (PCR) (Not Detect) Parainfluenza 4 (PCR) (Not Detect) RSV (PCR) (Not Detect) Entero/Rhino (PCR) (Not Detect) 04/05/18 04/05/18 04/05/18 Range/Units 12:12 09:20 09:20 Urine Color (Yellow) Urine Clarity (Clear) Urine pH (5.0-8.0) pH Units Ur Specific [place] (1.010-1.025) Urine Protein (Neg-Trace) mg/dL Urine Glucose (UA) (Normal) mg/dL Urine Ketones (Negative) mg/dL Urine Blood (Negative) Urine Nitrite (Negative) Urine Bilirubin (Negative) Urine Urobilinogen (Normal) mg/dL Ur Leukocyte Esterase (Negative) Urine Microscopic RBC (0-3) per hpf Urine Microscopic WBC (0-3) per hpf Ur Squamous Epith Cells (None-Few) per lpf Ur Renal Epithelial Cell (None-Few) per hpf Urine Bacteria (None-Few) per hpf Hyaline Casts (None-Few) per lpf Urine Mucus (Few) Urine Yeast (None Seen) per hpf Ur Culture Indicated? (NO) Nasal Screen MRSA (PCR) Negative (Negative) Stl C. cayetanensis PCR (Not detect) Stool Rotavirus A PCR (Not detect) Stl Adenov F 40/41 PCR (Not detect) Stool Astrovirus (PCR) (Not detect) Stool Campylobacter PCR (Not detect) Stl C. diff Tox B Gene (Negative) Stl C. diff Tox A/B PCR (Not detect) Stool Cryptosporidium PCR (Not detect) Stl Sh Tox Pr E STEC PCR (Not detect) Stool E coli O157 PCR (Not detect) Stl Enterotoxigenic E PCR (Not detect) Stool EPEC (PCR) (Not detect) Stool EAEC (PCR) (Not detect) Stl E. histolytica PCR (Not detect) Stool Giardia Lamblia PCR (Not detect) Stool Salmonella PCR (Not detect) Stool Sapovirus (PCR) (Not detect) Stl P. shigelloides PCR (Not detect) Stl Shigella/EIEC PCR (Not detect) St Y.enterocolitica PCR (Not detect) Stool Vibrio (PCR) (Not detect) Stl Vibrio cholerae PCR (Not detect) Stl Norovirus GI/GII PCR (Not detect) Stl GI Panel (PCR) Com Chlamy pneumoniae PCR Not Detected (Not Detect) Adenovirus (PCR) Not Detected (Not Detect) B. pertussis DNA (PCR) Not Detected (Not Detect) B.parapertussis DNA PCR Not Detected (Not Detect) Coronavirus OC43 (PCR) Not Detected (Not Detect) Coronavirus HKU1 (PCR) Not Detected (Not Detect) Coronavirus 229E (PCR) Not Detected (Not Detect) Coronavirus NL63 (PCR) Not Detected (Not Detect) Hepatitis A IgM Ab (Nonreactive) Hepatitis A Ab Total (Negative) Hep Bs Antigen (Nonreactive) Hep B Core IgM Ab (Nonreactive) Hepatitis C Ab Screen (Nonreactive) Human Metapneumovir PCR Not Detected (Not Detect) Influenza A (H1) PCR Not Detected (Not Detect) Influ A (H1N1/09) PCR Not Detected (Not Detect) Influenza A (H3) PCR Not Detected (Not Detect) Influenza A Untype (PCR) Not Detected (Not Detect) Influenza Type B (PCR) Not Detected (Not Detect) Mycoplasma pneumon IgG 0.48 H (<=0.09) U/L Mycoplasma pneumon IgM 0.13 (<=0.76) U/L M.pneumoniae DNA (PCR) Not Detected (Not Detect) Parainfluenza 1 (PCR) Not Detected (Not Detect) Parainfluenza 2 (PCR) Not Detected (Not Detect) Parainfluenza 3 (PCR) Not Detected (Not Detect) Parainfluenza 4 (PCR) Not Detected (Not Detect) RSV (PCR) Not Detected (Not Detect) Entero/Rhino (PCR) Not Detected (Not Detect) 03/29/18 03/27/18 03/26/18 Range/Units 08:40 04:15 20:10 Urine Color Yellow (Yellow) Urine Clarity Clear (Clear) Urine pH 5.5 (5.0-8.0) pH Units Ur Specific [place] 1.023 (1.010-1.025) Urine Protein Negative (Neg-Trace) mg/dL Urine Glucose (UA) Normal (Normal) mg/dL Urine Ketones Negative (Negative) mg/dL Urine Blood Trace H (Negative) Urine Nitrite Negative (Negative) Urine Bilirubin Negative (Negative) Urine Urobilinogen Normal (Normal) mg/dL Ur Leukocyte Esterase Small H (Negative) Urine Microscopic RBC 3-5 H (0-3) per hpf Urine Microscopic WBC 5-15 H (0-3) per hpf Ur Squamous Epith Cells Many H (None-Few) per lpf Ur Renal Epithelial Cell (None-Few) per hpf Urine Bacteria None Seen (None-Few) per hpf Hyaline Casts Few (None-Few) per lpf Urine Mucus (Few) Urine Yeast Test Not Performed (None Seen) per hpf Ur Culture Indicated? NO. A (NO) Nasal Screen MRSA (PCR) (Negative) Stl C. cayetanensis PCR (Not detect) Stool Rotavirus A PCR (Not detect) Stl Adenov F 40/41 PCR (Not detect) Stool Astrovirus (PCR) (Not detect) Stool Campylobacter PCR (Not detect) Stl C. diff Tox B Gene Positive A (Negative) Stl C. diff Tox A/B PCR (Not detect) Stool Cryptosporidium PCR (Not detect) Stl Sh Tox Pr E STEC PCR (Not detect) Stool E coli O157 PCR (Not detect) Stl Enterotoxigenic E PCR (Not detect) Stool EPEC (PCR) (Not detect) Stool EAEC (PCR) (Not detect) Stl E. histolytica PCR (Not detect) Stool Giardia Lamblia PCR (Not detect) Stool Salmonella PCR (Not detect) Stool Sapovirus (PCR) (Not detect) Stl P. shigelloides PCR (Not detect) Stl Shigella/EIEC PCR (Not detect) St Y.enterocolitica PCR (Not detect) Stool Vibrio (PCR) (Not detect) Stl Vibrio cholerae PCR (Not detect) Stl Norovirus GI/GII PCR (Not detect) Stl GI Panel (PCR) Com Chlamy pneumoniae PCR (Not Detect) Adenovirus (PCR) (Not Detect) B. pertussis DNA (PCR) (Not Detect) B.parapertussis DNA PCR (Not Detect) Coronavirus OC43 (PCR) (Not Detect) Coronavirus HKU1 (PCR) (Not Detect) Coronavirus 229E (PCR) (Not Detect) Coronavirus NL63 (PCR) (Not Detect) Hepatitis A IgM Ab (Nonreactive) Hepatitis A Ab Total (Negative) Hep Bs Antigen (Nonreactive) Hep B Core IgM Ab (Nonreactive) Hepatitis C Ab Screen (Nonreactive) Human Metapneumovir PCR (Not Detect) Influenza A (H1) PCR (Not Detect) Influ A (H1N1/09) PCR (Not Detect) Influenza A (H3) PCR (Not Detect) Influenza A Untype (PCR) (Not Detect) Influenza Type B (PCR) (Not Detect) Mycoplasma pneumon IgG 0.30 H (<=0.09) U/L Mycoplasma pneumon IgM 0.06 (<=0.76) U/L M.pneumoniae DNA (PCR) (Not Detect) Parainfluenza 1 (PCR) (Not Detect) Parainfluenza 2 (PCR) (Not Detect) Parainfluenza 3 (PCR) (Not Detect) Parainfluenza 4 (PCR) (Not Detect) RSV (PCR) (Not Detect) Entero/Rhino (PCR) (Not Detect) 03/26/18 03/25/18 Range/Units 20:10 03:15 Urine Color Dark Yellow (Yellow) Urine Clarity Cloudy A (Clear) Urine pH 5.5 (5.0-8.0) pH Units Ur Specific [place] >= 1.030 H (1.010-1.025) Urine Protein 100 H (Neg-Trace) mg/dL Urine Glucose (UA) Normal (Normal) mg/dL Urine Ketones Negative (Negative) mg/dL Urine Blood Moderate H (Negative) Urine Nitrite Negative (Negative) Urine Bilirubin Small H (Negative) Urine Urobilinogen Normal (Normal) mg/dL Ur Leukocyte Esterase Large H (Negative) Urine Microscopic RBC Present (0-3) per hpf Urine Microscopic WBC TNTC H (0-3) per hpf Ur Squamous Epith Cells Present (None-Few) per lpf Ur Renal Epithelial Cell Present (None-Few) per hpf Urine Bacteria Present (None-Few) per hpf Hyaline Casts None Seen (None-Few) per lpf Urine Mucus Present (Few) Urine Yeast Present H (None Seen) per hpf Ur Culture Indicated? YES A (NO) Nasal Screen MRSA (PCR) (Negative) Stl C. cayetanensis PCR Not detected (Not detect) Stool Rotavirus A PCR Not detected (Not detect) Stl Adenov F 40/41 PCR Not detected (Not detect) Stool Astrovirus (PCR) Not detected (Not detect) Stool Campylobacter PCR Not detected (Not detect) Stl C. diff Tox B Gene (Negative) Stl C. diff Tox A/B PCR See reflex test A (Not detect) Stool Cryptosporidium PCR Not detected (Not detect) Stl Sh Tox Pr E STEC PCR Not detected (Not detect) Stool E coli O157 PCR Not detected (Not detect) Stl Enterotoxigenic E PCR Not detected (Not detect) Stool EPEC (PCR) Not detected (Not detect) Stool EAEC (PCR) Not detected (Not detect) Stl E. histolytica PCR Not detected (Not detect) Stool Giardia Lamblia PCR Not detected (Not detect) Stool Salmonella PCR Not detected (Not detect) Stool Sapovirus (PCR) Not detected (Not detect) Stl P. shigelloides PCR Not detected (Not detect) Stl Shigella/EIEC PCR Not detected (Not detect) St Y.enterocolitica PCR Not detected (Not detect) Stool Vibrio (PCR) Not detected (Not detect) Stl Vibrio cholerae PCR Not detected (Not detect) Stl Norovirus GI/GII PCR Not detected (Not detect) Stl GI Panel (PCR) Com See below Chlamy pneumoniae PCR (Not Detect) Adenovirus (PCR) (Not Detect) B. pertussis DNA (PCR) (Not Detect) B.parapertussis DNA PCR (Not Detect) Coronavirus OC43 (PCR) (Not Detect) Coronavirus HKU1 (PCR) (Not Detect) Coronavirus 229E (PCR) (Not Detect) Coronavirus NL63 (PCR) (Not Detect) Hepatitis A IgM Ab (Nonreactive) Hepatitis A Ab Total (Negative) Hep Bs Antigen (Nonreactive) Hep B Core IgM Ab (Nonreactive) Hepatitis C Ab Screen (Nonreactive) Human Metapneumovir PCR (Not Detect) Influenza A (H1) PCR (Not Detect) Influ A (H1N1/09) PCR (Not Detect) Influenza A (H3) PCR (Not Detect) Influenza A Untype (PCR) (Not Detect) Influenza Type B (PCR) (Not Detect) Mycoplasma pneumon IgG (<=0.09) U/L Mycoplasma pneumon IgM (<=0.76) U/L M.pneumoniae DNA (PCR) (Not Detect) Parainfluenza 1 (PCR) (Not Detect) Parainfluenza 2 (PCR) (Not Detect) Parainfluenza 3 (PCR) (Not Detect) Parainfluenza 4 (PCR) (Not Detect) RSV (PCR) (Not Detect) Entero/Rhino (PCR) (Not Detect) Exam - Constitutional Vitals: Temp Pulse Resp BP Pulse Ox 100.1 F H 85 16 125/58 96 04/26/18 10:16 04/26/18 10:16 04/26/18 08:52 04/26/18 08:52 04/26/18 08:52 General appearance: average body habitus, cooperative, no acute distress - Head Head exam: Present: atraumatic, normal inspection, normocephalic - Eye Eye exam: Present: EOMI, normal appearance, PERRL Pupils: Present: normal accommodation - ENT ENT exam: Present: mucous membranes moist - Neck Neck exam: Present: normal inspection - Respiratory Respiratory exam: Present: rhonchi (Bilateral bases). Absent: rales, respiratory distress, wheezes - Cardiovascular Cardiovascular exam: Present: RRR, +S1, +S2 - GI/Abdominal GI/Abdominal exam: Present: normal bowel sounds, soft, tenderness (generalized). Absent: distended Additional comments: Chandra catheter noted to be draining clear yellow urine. - Extremities Exam Extremities exam: Present: normal inspection. Absent: joint swelling, pedal edema, tenderness - Neurological Exam Neurological exam: Present: alert, oriented X3. Absent: no focal deficits (Paralysis noted to the RLE with diminished motor/sensation to the RUE.) - Psychiatric Psychiatric exam: Present: normal affect, normal mood - Skin Skin exam: Present: dry, intact, normal color, warm Consult Discharge Plan - Plan Referrals: Kathy Acosta DO [Resident] - 04/26/18 10:00 am - Attending Attestation I examined this patient and my medical decision-making was reviewed with the Resident Physician. I agree with the documented findings, disposition and treatment plan as described except to the extent set forth below.
[2018-04-26 11:04] LABS: Hematocrit 24.7 % (35.3-44.9); Hemoglobin 7.7 g/dL (11.5-15.4)
--- NOTE | 2018-04-26 15:13 | Internal Med Progress Note ---
<Lucero Salas - Last Filed: 04/26/18 15:50> Hospitalist Progress Note - Encounter Date of Encounter: 04/26/18 Time of Encounter: 10:00 - Subjective Interval History: Ms. Lauren was examined at bedside this morning. She was laying in bed on nasal canula. She is comfortable in bed and states her breathing has improved. She had just underwent endoscopy and was a little sleepy. Her blood pressure and heart rate remained stable overnight. Her glucose was low this morning and required a few bolus of dextrose. Today her hemoglobin is 7.7. She continues to have diffuse abdominal pain with bloody bowel movements.. She continues to have several episodes of bowel movements, although more formed now. She denied any abdominal pain, nausea, emesis, fever, chills or chest pain. - Exam Vitals: Temp Pulse Resp BP Pulse Ox 99.6 F 83 19 159/70 96 04/26/18 12:28 04/26/18 12:28 04/26/18 12:28 04/26/18 12:28 04/26/18 12:28 Exam: Constitutional: Alert, laying in bed comfortably, on nasal canula HEENT: Normocephalic, atraumatic, moist mucus membranes Heart: Normal, regular rate and rhythm, no murmurs Lungs: crackles at bilateral lower lung bases, no wheezing or rhonchi Abdomen: Soft, normal bowel sounds, diffuse abdominal pain Extremities: No edema of lower extremity or upper extremities, warm, nontender Skin: Skin warm and dry, no lesions, no rashes, no jaundice Psych: thought content congruent, appropriate affect Neurological: Alert and oriented x 3, 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 Likely due to volume overload, CHF exacerbation. This morning she is comfortable in bed and notes her breathing has improved. Plan: -Continue supplemental oxygen -Continue duoneb Q4h prn -Continue mucinex -Continue 40 mg prednisone daily -Decreasing prednisone to 40 oral PO starting tomorrow -Continue 40 mg PO furosemide -Pulmonology consulted (2) COPD (chronic obstructive pulmonary disease) Current Visit: Yes Status: Chronic Assessment and Plan: History of COPD. currently comfortable on nasal cannula. Denies any worsening shortness of breath. Plan: -Continue with duoneb Q4h prn -Continue to wean O2 supplementation -Continue mucinex -Continue prednisone 40 mg IV daily -Switching to prednisone 40 mg PO starting tomorrow -Pulmonology consulted (3) Pneumonia Current Visit: Yes Status: Suspected Assessment and Plan: CT chest on 04/03 showed multifocal PNA, greatest in the LLL. Patient had worsening left-sided infiltrates on 04/13. Repeat CT on 04/18/18 showed increasing multifocal airspace disease suggesting pneumonia and small pleural effusions. Acute hypoxic exacerbation on 04/23/18, chest xray looks better than previous with decreased opacity. Plan: -Zosyn stopped (day 14 since restarted, received 12 days previously) -IV vancomycin stopped given her poor renal function and has received 8 days of dose, her MRSA swab is negative -Renally dose antibiotics -Pulmonology consulted -Continue mucinex -CBC in the morning (4) C. difficile colitis Current Visit: Yes Status: Resolved Assessment and Plan: Diarrhea ongoing, hepatitis A IgM is negative so acute phase of hepatitis A is resolved. Continues to have many bowel movements daily, although more formed. She did not show any evidence of pseudomembranous colitis and toxic megacolon during sigmoidoscopy on 04/12. Plan: -Stopped oral vancomycin after 29 days of therapy -Infectious disease recommends stopping oral vancomycin on 04/26/18 -Continue to monitor stool for changes in consistency -Continue probiotics -Continue to monitor vitals and CBC (5) Diabetes type 2, controlled Current Visit: Yes Status: Chronic Assessment and Plan: Her glucose today was 73 this morning Currently nothing by mouth due to recent GI bleed Plan: Continue to hold long-acting insulin Continue sliding scale per protocol Continue to monitor (6) Anemia Current Visit: Yes Status: Suspected Assessment and Plan: Overnight noted to have GI bleed and hemoglobin was 7.7 at the time. The day prior it was 8.3. Received 2 units of blood transfusion yesterday. Plan: Continue to monitor GI has been reconsulted Continue NPO diet (7) Pulmonary nodule Current Visit: Yes Status: Acute Assessment and Plan: CT of the chest noted a small lobulated nodule on the right upper lung lobe posteriorly Plan: Need to be followed to resolution after pneumonia resolves outpatient (8) Hepatitis A Current Visit: Yes Status: Resolved Assessment and Plan: Tested positive on 04/12. Because of the long incubation period of hepatitis A, she may have had hepatitis A prior to admission but liver enzymes worsened on 04/12. She had Hep A antibody positive on 04/12 and repeat Hep A IgM was negative on 04/17, so no active Hep A infection. Plan: Continue to monitor (9) Sepsis Current Visit: Yes Status: Resolved Assessment and Plan: Resolved. She progressed to septic shock on 04/12 and required vasopressors for one day. Her blood cultures remained negative. Likely source secondary to pneumonia and hepatitis A. Blood cultures negative from 03/25 and negative 04/11. Plan: Stopped zosyn by ID recommendation, completed 14 days therapy Continue monitoring vitals Repeat chest xray on 04/17 shows bibasilar consolidation Chest xray today shows decreased left pleural effusion with improvement of the left lower lobe opacity CT chest on 04/18 shows increased multifocal airspace disease suggesting pneumonia CBC in the morning (10) Shock liver Current Visit: Yes Status: Resolved Assessment and Plan: Resolved was likely due to sepsis and hepatitis A. (11) NIGEL (acute kidney injury) Current Visit: Yes Status: Acute Assessment and Plan: Creatinine of 1.44 today, stable for the past three days. Dialysis catheter removed. Output of 675 yesterday and 300 output today. Plan: -Progress full liquid diet -BMP in the morning (12) Hypertension Current Visit: Yes Status: Acute Assessment and Plan: Chronic history of HTN, likely CKD stage 3b is contributing to it. Blood pressure stable today Plan: Continue 10 mg amlodapine Continue 40 mg PO furosemide Continue to monitor (13) Abdominal distension (gaseous) Current Visit: Yes Status: Acute Assessment and Plan: Likely due to fci antibiotic use and recently immodium was started. KUB three days ago showed nonspecific bowel gas pattern with no evidence for obstruction and severe atherosclerotic disease. Recent episode of GI bleed. Tenderness in the left lower quadrant. Plan: Stopped immodium three days ago Continue simethicone PRN Continue culturelle GI reconsulted (14) DVT prophylaxis Current Visit: Yes Status: Acute Assessment and Plan: SCDs given GI bleed (15) GI bleed Current Visit: Yes Status: Acute Assessment and Plan: Continues to have bloody movements. Her hemoglobin is 7.7 this morning. She un derwent EGD and there was no finding of gastritis or evidence of blood. Her mental status is stable. The bowel movements today were visualized and noted as dark. Plan: Transfuse if below 7.0 Stopped subcutaneous heparin Aspirin and Plavix on hold Full liquid diet - Time Spent with Patient Total time spent is greater than 50% in coordination of care (as documented) at patient's floor/unit and/or counseling patient: Plan of Care Discussed with: patient Internal Medicine: Result - Labs CBC & Chem 7: 04/26/18 10:35 04/26/18 05:13 Labs: Short CBC 04/25/18 04/26/18 04/26/18 Range/Units 20:00 05:13 10:35 WBC 30.3 H* (4.3-11.1) K/mcL Hgb 8.3 L D 7.9 L 7.7 L (11.5-15.4) g/dL Hct 26.1 L 25.3 L 24.7 L (35.3-44.9) % Plt Count 218 (140-400) K/mcL Neutrophils # 28.0 H (1.6-8.9) K/mcL BMP 04/26/18 05:13 Sodium 148 H Potassium 3.5 Chloride 110 H Carbon Dioxide 32 H BUN 53 H Creatinine 1.42 H Glucose 45 L Calcium 8.5 L - ABG Interpretation ABG results: ABG ABG pH 7.36 pH Units (7.32-7.45) 04/23/18 08:01 ABG pCO2 51 mmHg (35-45) H 04/23/18 08:01 ABG pO2 48 mmHg (85-104) L* 04/23/18 08:01 ABG O2 Saturation 81 % (95-98) L 04/23/18 08:01 PT/INR, D-dimer PT 13.2 Seconds (9.4-12.1) H 04/19/18 06:20 Consult Discharge Plan - Plan Referrals: Kathy Acosta DO [Resident] - 04/26/18 10:00 am <Alex Parham - Last Filed: 04/26/18 17:39> Hospitalist Progress Note - Exam Vitals: Temp Pulse Resp BP Pulse Ox 98.5 F 73 18 165/73 97 04/26/18 16:44 04/26/18 16:44 04/26/18 16:44 04/26/18 16:44 04/26/18 16:44 - Assessment and Plan (1) COPD (chronic obstructive pulmonary disease) Current Visit: Yes Status: Chronic (2) Pneumonia Current Visit: Yes Status: Suspected (3) C. difficile colitis Current Visit: Yes Status: Resolved (4) Diabetes type 2, controlled Current Visit: Yes Status: Chronic (5) Anemia Current Visit: Yes Status: Suspected (6) Pulmonary nodule Current Visit: Yes Status: Acute (7) Hepatitis A Current Visit: Yes Status: Resolved (8) Sepsis Current Visit: Yes Status: Resolved (9) DVT prophylaxis Current Visit: Yes Status: Acute (10) Shock liver Current Visit: Yes Status: Resolved (11) NIGEL (acute kidney injury) Current Visit: Yes Status: Acute (12) Hypertension Current Visit: Yes Status: Acute (13) Abdominal distension (gaseous) Current Visit: Yes Status: Acute (14) Acute and chronic respiratory failure Current Visit: Yes Status: Resolved (15) GI bleed Current Visit: Yes Status: Acute - Time Spent with Patient Total time spent is greater than 50% in coordination of care (as documented) at patient's floor/unit and/or counseling patient: Internal Medicine: Result - Labs CBC & Chem 7: 04/26/18 16:55 04/26/18 16:55 Labs: Short CBC 04/25/18 04/26/18 04/26/18 Range/Units 20:00 05:13 10:35 WBC 30.3 H* (4.3-11.1) K/mcL Hgb 8.3 L D 7.9 L 7.7 L (11.5-15.4) g/dL Hct 26.1 L 25.3 L 24.7 L (35.3-44.9) % Plt Count 218 (140-400) K/mcL Neutrophils # 28.0 H (1.6-8.9) K/mcL 04/26/18 Range/Units 16:55 WBC 28.8 H (4.3-11.1) K/mcL Hgb 7.7 L (11.5-15.4) g/dL Hct 24.5 L (35.3-44.9) % Plt Count 214 (140-400) K/mcL Neutrophils # (1.6-8.9) K/mcL BMP 04/26/18 04/26/18 05:13 16:55 Sodium 148 H 147 H Potassium 3.5 3.9 Chloride 110 H 110 H Carbon Dioxide 32 H 29 BUN 53 H 51 H Creatinine 1.42 H 1.43 H Glucose 45 L 105 Calcium 8.5 L 8.5 L - ABG Interpretation ABG results: ABG ABG pH 7.36 pH Units (7.32-7.45) 04/23/18 08:01 ABG pCO2 51 mmHg (35-45) H 04/23/18 08:01 ABG pO2 48 mmHg (85-104) L* 04/23/18 08:01 ABG O2 Saturation 81 % (95-98) L 04/23/18 08:01 PT/INR, D-dimer PT 13.2 Seconds (9.4-12.1) H 04/19/18 06:20 - Impressions Impressions Abdomen/Pelvis CT 04/26/18 12:00 IMPRESSION: Nonspecific diarrheal disease. Severe atherosclerotic disease. Query chronic abdominal angina/ischemia and renovascular hypertension. No evidence of ischemic bowel at this time. Bibasilar airspace disease. Gallstones. D/ / Jaiden Connelly MD / Jaiden Connelly MD Interpreting Provider: Jaiden Connelly MD Chest CT 04/26/18 12:00 IMPRESSION: 1. Left lower lobe consolidation, slightly improved compared to the exam of April 18, 2018. This likely represents atelectasis. 2. New centrilobular nodules in a tree-in-bud distribution in all lobes, most pronounced in the right lung. Based on the appearance, this is likely infectious/inflammatory and can be seen in the setting of bronchiolitis. 3. Mild dependent atelectasis in the right lower lobe. 4. Small left pleural effusion. D/ / 04/26/2018 15:58:37 Alexis Monroe MD / dayo Interpreting Provider: Alexis Monroe MD - Attending Attestation I examined this patient and my medical decision-making was reviewed with the Resident Physician Dr. Salas. I agree with the documented findings, disposition and treatment plan as described except to the extent set forth below. Ms. Lauren is a 63 year old female history of COPD on 3 L oxygen at home admitted here with Sepsis, Pneumonia, developed C. Diff colitis and respiratory failure was transferred to ICU and moved to tele again when pt got stabilized. Pt went into acute hypoxic resp failure on 04/23/18. Now she is breathing comfortably on 4 lit O2. She denied any CP. She i s alert, awake and O x 3. She still having melena / dark colored stools started this afternoon again. She is c/o severe lower abdominal pain too.. Gen: Mild Resp distress Chest: Diminished BS b/l, crackles + Rales +, Moderate wheezing Heart: S1S2+ RRR Ext: No edema a/p 1. Acute on chronic hypoxic resp failure 2. Acute COPD exacerbation 3. Acute Pneumonia - bacterial 4. Sepsis Pulm on board Will hold Lasix for today since she is going to NPO CXR showed improving multi focal pneumonia Finished 13 days of Zosyn On CT of chest - consoldiation seems to be improving.. So agreee with ID to stop abx and monitor closely especially give ner C. Diff, will try to avoid unnecessary abx usage Cont tapering steroids Duoneb Encouraged frequent IS 5. C. Diff colitis Reviewed CT of abd showed diarrheal disease concerning for worsening C. Diff infection especially with current GI bleed so Inc Vancomycin to 500 mg PO QID 6. Acute GI bleed / melena s/p EGD - Mucosal nodule in the esophagus noticed with gastric atrophy s/p Colonoscopy 04/12/18 - no pseudomembrane / feliz colon noticed close monitoring of Hb for now Cont holding ASA, Plavix and SQ heparin SCD's for DVT prophylaxis <Perez Salasa - Last Filed: 04/26/18 15:50> (2) COPD (chronic obstructive pulmonary disease) Qualifiers: COPD type: chronic bronchitis Chronic bronchitis type: mucopurulent Qualified Code(s): J41.1 - Mucopurulent chronic bronchitis (3) Pneumonia Qualifiers: Pneumonia type: due to other aerobic Gram-negative bacteria Laterality: bilateral Lung location: lower lobe of lung Qualified Code(s): J15.6 - Pneumonia due to other Gram-negative bacteria (5) Diabetes type 2, controlled Qualifiers: Diabetes mellitus fci insulin use: with terminal operator use Diabetes mellitus complication status: with hyperglycemia Qualified Code(s): E11.65 - Type 2 di abetes mellitus with hyperglycemia; 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 (6) Anemia Qualifiers: Anemia type: iron deficiency Iron deficiency anemia type: chronic blood loss Qualified Code(s): D50.0 - Iron deficiency anemia secondary to blood loss (chronic) (8) Hepatitis A Qualifiers: Hepatic coma status: without hepatic coma Qualified Code(s): B15.9 - Hepatitis A without hepatic coma (9) Sepsis Qualifiers: Sepsis type: sepsis due to unspecified organism Qualified Code(s): A41.9 - Sepsis, unspecified organism (12) Hypertension Qualifiers: Hypertension type: essential hypertension Qualified Code(s): I10 - Essential (primary) hypertension <Alex Parham - Last Filed: 04/26/18 17:39> (1) COPD (chronic obstructive pulmonary disease) Qualifiers: COPD type: chronic bronchitis Chronic bronchitis type: mucopurulent Qualified Code(s): J41.1 - Mucopurulent chronic bronchitis (2) Pneumonia Qualifiers: Pneumonia type: due to other aerobic Gram-negative bacteria Laterality: bila teral Lung location: lower lobe of lung Qualified Code(s): J15.6 - Pneumonia due to other Gram-negative bacteria (4) Diabetes type 2, controlled Qualifiers: Diabetes mellitus fci insulin use: with terminal operator use Diabetes mellitus complication status: with hyperglycemia Qualified Code(s): E11.65 - Type 2 diabetes mellitus with hyperglycemia; 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
[2018-04-26] MEDS: Simethicone 80 MG TAB.CHEW PO PRN (16:56)
[2018-04-26] MEDS ORDERED: Vancomycin Oral Soln 125 MG/2.5 ML UDC PO SCH (17:00)
[2018-04-26] MEDS: *HR* HYDROcodone/Acet 5/325 mg TABLET PO PRN (17:05)
[2018-04-26] MEDS ORDERED: *HR* OxyCODONE Oral Soln 5 MG/5 ML UD.LIQ PO PRN (17:07)
[2018-04-26 17:12] LABS: Mean Corpuscular Hemoglobin 26.6 pg (28.0-33.3)
[2018-04-26 17:13] LABS: Hematocrit 24.5 % (35.3-44.9); Hemoglobin 7.7 g/dL (11.5-15.4); Mean Corpuscular HGB Conc 31.4 g/dL (31.6-35.5); Mean Corpuscular Volume 84.5 fL (83.0-100.0); Mean Platelet Volume 13.3 fL (9.4-12.4); Platelet Count 214 K/mcL (140-400); Red Cell Distribution Width 19.2 % (11.5-14.5)
[2018-04-26 17:31] LABS: Calcium 8.5 mg/dL (8.6-10.3); Potassium 3.9 mEq/L (3.5-5.1)
[2018-04-26] MEDS: D5% in 0.45% NACL 1,000 ML IVC SCH (18:23)
[2018-04-26] MEDS: traZODone 50 MG TABLET PO SCH (20:17)
[2018-04-26] MEDS: Vancomycin Oral Soln 125 MG/2.5 ML UDC PO SCH (21:51)
[2018-04-27] MEDS: *HR* HYDROcodone/Acet 5/325 mg TABLET PO PRN ×2 (01:36→10:28)
[2018-04-27] MEDS: Acetaminophen 325 MG TABLET PO PRN (04:00)
[2018-04-27] MEDS: Ipratropium/Albuterol Neb 3 ML IH SCH ×6 (04:09→23:24)
[2018-04-27 04:30] LABS: Basophils % 0.1 %; Hematocrit 23.6 % (35.3-44.9); Hemoglobin 7.4 g/dL (11.5-15.4); Immature Granulocytes % 0.4 % (0-4); Mean Corpuscular HGB Conc 31.4 g/dL (31.6-35.5); Mean Corpuscular Hemoglobin 26.2 pg (28.0-33.3); Mean Corpuscular Volume 83.7 fL (83.0-100.0); Monocytes # 0.4 K/mcL (0.0-1.3); Monocytes % 1.5 %; Neutrophils # 22.5 K/mcL (1.6-8.9); Platelet Count 203 K/mcL (140-400); Red Blood Count 2.82 M/mcL (3.82-4.97); Red Cell Distribution Width 19.1 % (11.5-14.5)
[2018-04-27] MEDS: D5% in 0.45% NACL 1,000 ML IVC SCH ×2 (04:46→17:22)
[2018-04-27 04:51] LABS: Calcium 8.6 mg/dL (8.6-10.3); Potassium 3.9 mEq/L (3.5-5.1)
[2018-04-27 05:41] LABS: Platelet Estimate Normal (Normal)
[2018-04-27] MEDS: Beclomethasone 40mcg REDIHALER IH SCH ×2 (07:53→20:02)
--- NOTE | 2018-04-27 08:37 | Internal Med Progress Note ---
Addendum entered and electronically signed by Lucero Salas 04/27/18 11:28: At around 11 she started having respiratory failure. Her pulse ox was 65% on nasal canula. Her ABG showed mixed metabolic and respiratory acidosis. She is awake and alert. She is placed on a BiPAP and her oxygen saturation has increased to 96%. She received 250 ml of normal saline bolus. She also received 125 IV solumedrol push. Currently, x-ray as well as following labs are pending: cbc, cmp, lactic acid, mg, phos. She will also receive 2 units of blood transfusion. She is being transferred to the ICU. Original Note: <Lucero Salas - Last Filed: 04/27/18 09:35> Hospitalist Progress Note - Encounter Date of Encounter: 04/27/18 Time of Encounter: 08:15 - Subjective Interval History: Ms. Lauren was examined at bedside this morning. Her blood pressure and heart rate remained stable overnight. Yesterday evening she had severe abdominal pain and had a CT of her abdomen which showed diarrhea in her colon while there was no bowel thickening or pneumatosis. She was laying in bed on nasal canula. She notes her breathing has improved. She is complaining of diffuse abdominal pain and right hip pain. Today her hemoglobin is 7.4. She continues to have bloody bowel movement She continues to have several episodes of bowel movements, although more formed now. She denied any abdominal pain, nausea, emesis, fever, chills or chest pain. - Exam Vitals: Temp Pulse Resp BP Pulse Ox 98.0 F 79 17 120/63 94 04/27/18 08:27 04/27/18 08:27 04/27/18 08:27 04/27/18 08:27 04/27/18 08:27 Exam: Constitutional: Alert, laying in bed comfortably, on nasal canula HEENT: Normocephalic, atraumatic, moist mucus membranes Heart: Normal, regular rate and rhythm, no murmurs Lungs: crackles at bilateral lower lung bases, no wheezing or rhonchi Abdomen: Soft, diminished bowel sounds, diffuse abdominal pain Extremities: No edema of lower extremity or upper extremities, warm, nontender Skin: Skin warm and dry, no lesions, no rashes, no jaundice Psych: thought content congruent, appropriate affect Neurological: Alert and oriented x 3, 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 Continues to have crackles throughout lung bases. Likely ongoing CHF exacerbation. This morning she is comfortable in bed and notes her breathing has improved. Plan: -Continue supplemental oxygen -Continue duoneb Q4h prn -Continue mucinex -Continue 40 mg PO prednisone daily -Continue 40 mg PO furosemide -Pulmonology consulted (2) COPD (chronic obstructive pulmonary disease) Current Visit: Yes Status: Chronic Assessment and Plan: History of COPD. currently comfortable on nasal cannula. Denies any worsening shortness of breath. Plan: -Continue with duoneb Q4h prn -Continue to wean O2 supplementation -Continue mucinex -Continue prednisone 40 mg PO -Pulmonology consulted (3) Pneumonia Current Visit: Yes Status: Suspected Assessment and Plan: Resolved. CT chest on 04/03 showed multifocal PNA, greatest in the LLL. Patient had worsening left-sided infiltrates on 04/13. Repeat CT on 04/18/18 showed increasing multifocal airspace disease suggesting pneumonia and small pleural ef fusions. Acute hypoxic exacerbation on 04/23/18, chest xray looks better than previous with decreased opacity. CT chest 04/26/18: Consolidation is improved and atelectasis with centrilobular nodules in all lobes Plan: -Zosyn stopped (day 14 since restarted, received 12 days previously) -IV vancomycin stopped given her poor renal function and has received 8 days of dose, her MRSA swab is negative -Renally dose antibiotics -Pulmonology consulted -Continue mucinex -CBC in the morning (4) C. difficile colitis Current Visit: Yes Status: Resolved Assessment and Plan: Diarrhea ongoing, hepatitis A IgM is negative so acute phase of hepatitis A is resolved. Continues to have many bowel movements daily, although more formed. She did not show any evidence of pseudomembranous colitis and toxic megacolon during sigmoidoscopy on 04/12. CT abdomen yesterday Plan: -Restarted oral vancomycin -Had completed 29 days of oral vancomycin therapy -Infectious disease recommends stopping oral vancomycin on 04/26/18 -Continue to monitor stool for changes in consistency -Continue probiotics -Continue to monitor vitals and CBC (5) Diabetes type 2, controlled Current Visit: Yes Status: Chronic Assessment and Plan: Her glucose today was 295 this morning Currently nothing by mouth due to recent GI bleed Plan: Continue to hold long-acting insulin Continue sliding scale per protocol Continue to monitor (6) Anemia Current Visit: Yes Status: Suspected Assessment and Plan: Overnight noted to have GI bleed and hemoglobin was 7.4 at the time. The day prior it was 7.7. Received 2 units of blood transfusion two days ago. Is actively having bloody bowel movements Likely due to c. diff or diverticulosis Plan: Continue to monitor EGD completed yesterday and does not show any site of ulcers Continue NPO diet (7) Pulmonary nodule Current Visit: Yes Status: Acute Assessment and Plan: CT of the chest noted a small lobulated nodule on the right upper lung lobe posteriorly CT chest 04/26/18 shows more centrilobular nodules in tree in bud distribution in all lobes Plan: Need to be followed to resolution after pneumonia resolves outpatient (8) Hepatitis A Current Visit: Yes Status: Resolved Assessment and Plan: Tested positive on 04/12. Because of the long incubation period of hepatitis A, she may have had hepatitis A prior to admission but liver enzymes worsened on 04/12. She had Hep A antibody positive on 04/12 and repeat Hep A IgM was negative on 04/17, so no active Hep A infection. Plan: Continue to monitor (9) Sepsis Current Visit: Yes Status: Resolved Assessment and Plan: Resolved. She progressed to septic shock on 04/12 and required vasopressors for one day. Her blood cultures remained negative. Likely source secondary to pneumonia and hepatitis A. Blood cultures negative from 03/25 and negative 04/11. Plan: Stopped zosyn by ID recommendation, completed 14 days therapy Continue monitoring vitals Repeat chest xray on 04/17 shows bibasilar consolidation Chest xray today shows decreased left pleural effusion with improvement of the left lower lobe opacity CT chest on 04/26 shows improved consolidation and the changes on left lower lobe appear to be atelectasis CBC in the morning (10) Shock liver Current Visit: Yes Status: Resolved Assessment and Plan: Resolved was likely due to sepsis and hepatitis A. (11) NIGEL (acute kidney injury) Current Visit: Yes Status: Acute Assessment and Plan: Creatinine 1.44 today, stable for the past week. Dialysis catheter removed. Output of 675 yesterday and 300 output today. Plan: -Progress full liquid diet -BMP in the morning (12) Hypertension Current Visit: Yes Status: Acute Assessment and Plan: Chronic history of HTN, likely CKD stage 3b is contributing to it. Blood pressure stable today Plan: Continue 10 mg amlodapine Continue 40 mg PO furosemide Continue to monitor (13) DVT prophylaxis Current Visit: Yes Status: Acute Assessment and Plan: SCDs given GI bleed (14) GI bleed Current Visit: Yes Status: Acute Assessment and Plan: Continues to have bloody bowel movements. Her hemoglobin is 7.4 this morning was 7.7 yesterday. She underwent EGD and there was no finding of gastritis or evidence of blood. Her mental status is stable. Had 3 bright red bowel moveme nts yesterday. Plan: Transfuse if below 7.0 Stopped subcutaneous heparin Aspirin and Plavix on hold NPO except medications - Time Spent with Patient Total time spent is greater than 50% in coordination of care (as documented) at patient's floor/unit and/or counseling patient: Plan of Care Discussed with: patient Internal Medicine: Result - Labs CBC & Chem 7: 04/27/18 03:55 04/27/18 03:55 Labs: Short CBC 04/26/18 04/26/18 04/27/18 Range/Units 10:35 16:55 03:55 WBC 28.8 H 23.9 H (4.3-11.1) K/mcL Hgb 7.7 L 7.7 L 7.4 L (11.5-15.4) g/dL Hct 24.7 L 24.5 L 23.6 L (35.3-44.9) % Plt Count 214 203 (140-400) K/mcL Neutrophils # 22.5 H (1.6-8.9) K/mcL BMP 04/26/18 04/27/18 16:55 03:55 Sodium 147 H 146 H Potassium 3.9 3.9 Chloride 110 H 109 H Carbon Dioxide 29 27 BUN 51 H 51 H Creatinine 1.43 H 1.44 H Glucose 105 295 H Calcium 8.5 L 8.6 - ABG Interpretation ABG results: ABG ABG pH 7.36 pH Units (7.32-7.45) 04/23/18 08:01 ABG pCO2 51 mmHg (35-45) H 04/23/18 08:01 ABG pO2 48 mmHg (85-104) L* 04/23/18 08:01 ABG O2 Saturation 81 % (95-98) L 04/23/18 08:01 PT/INR, D-dimer PT 13.2 Seconds (9.4-12.1) H 04/19/18 06:20 - Impressions Impressions Abdomen/Pelvis CT 04/26/18 12:00 IMPRESSION: Nonspecific diarrheal disease. Severe atherosclerotic disease. Query chronic abdominal angina/ischemia and renovascular hypertension. No evidence of ischemic bowel at this time. Bibasilar airspace disease. Gallstones. D/ / Jaiden Connelly MD / Jaiden Connelly MD Interpreting Provider: Jaiden Connelly MD Chest CT 04/26/18 12:00 IMPRESSION: 1. Left lower lobe consolidation, slightly improved compared to the exam of April 18, 2018. This likely represents atelectasis. 2. New centrilobular nodules in a tree-in-bud distribution in all lobes, most pronounced in the right lung. Based on the appearance, this is likely infectious/inflammatory and can be seen in the setting of bronchiolitis. 3. Mild dependent atelectasis in the right lower lobe. 4. Small left pleural effusion. D/ / 04/26/2018 15:58:37 Alexis Monroe MD / [facility] Interpreting Provider: Alexis Monroe MD Consult Discharge Plan - Plan Referrals: Kathy Acosta DO [Resident] - 04/26/18 10:00 am <Alex Parham - Last Filed: 04/27/18 19:09> Hospitalist Progress Note - Exam Vitals: Temp Pulse Resp BP Pulse Ox 98.2 F 92 37 105/60 94 04/27/18 17:40 04/27/18 18:00 04/27/18 18:00 04/27/18 18:00 04/27/18 18:00 - Assessment and Plan (1) COPD (chronic obstructive pulmonary disease) Current Visit: Yes Status: Chronic (2) Pneumonia Current Visit: Yes Status: Acute (3) C. difficile colitis Current Visit: Yes Status: Resolved (4) Diabetes type 2, controlled Current Visit: Yes Status: Chronic (5) Anemia Current Visit: Yes Status: Acute (6) Pulmonary nodule Current Visit: Yes Status: Acute (7) Hepatitis A Current Visit: Yes Status: Resolved (8) Sepsis Current Visit: Yes Status: Acute (9) DVT prophylaxis Current Visit: Yes Status: Acute (10) Shock liver Current Visit: Yes Status: Resolved (11) NIGEL (acute kidney injury) Current Visit: Yes Status: Acute (12) Hypertension Current Visit: Yes Status: Acute (13) Acute and chronic respiratory failure Current Visit: Yes Status: Chronic (14) GI bleed Current Visit: Yes Status: Acute - Time Spent with Patient Total time spent is greater than 50% in coordination of care (as documented) at patient's floor/unit and/or counseling patient: Internal Medicine: Result - Labs CBC & Chem 7: 04/27/18 12:15 04/27/18 13:50 Labs: Short CBC 04/26/18 04/27/18 04/27/18 Range/Units 05:13 03:55 12:15 WBC 30.3 H* 23.9 H 11.0 D (4.3-11.1) K/mcL Hgb 7.9 L 7.4 L 7.1 L (11.5-15.4) g/dL Hct 25.3 L 23.6 L 23.3 L (35.3-44.9) % Plt Count 218 203 186 (140-400) K/mcL Neutrophils # 28.0 H 22.5 H 10.2 H (1.6-8.9) K/mcL BMP 04/27/18 04/27/18 03:55 13:50 Sodium 146 H 149 H Potassium 3.9 3.8 Chloride 109 H 110 H Carbon Dioxide 27 18 L BUN 51 H 51 H Creatinine 1.44 H 1.63 H Glucose 295 H 148 H Calcium 8.6 8.1 L Liver Function 04/27/18 Range/Units 13:50 Total Bilirubin 0.5 (0.3-1.0) mg/dL AST 111 H (13-39) Units/L ALT 104 H (7-52) Units/L Alkaline Phosphatase 124 H (34-104) Units/L Albumin 2.0 L (3.5-5.7) g/dL - ABG Interpretation ABG results: ABG ABG pH 7.20 pH Units (7.32-7.45) L* 04/27/18 11:17 ABG pCO2 50 mmHg (35-45) H 04/27/18 11:17 ABG pO2 69 mmHg (85-104) L 04/27/18 11:17 ABG O2 Saturation 89 % (95-98) L 04/27/18 11:17 PT/INR, D-dimer PT 13.2 Seconds (9.4-12.1) H 04/19/18 06:20 - Impressions Impressions Chest CT 04/26/18 12:00 IMPRESSION: 1. Left lower lobe consolidation, slightly improved compared to the exam of April 18, 2018. This likely represents atelectasis. 2. New centrilobular nodules in a tree-in-bud distribution in all lobes, most pronounced in the right lung. Based on the appearance, this is likely infectious/inflammatory and can be seen in the setting of bronchiolitis. 3. Mild dependent atelectasis in the right lower lobe. 4. Small left pleural effusion. D/ / 04/26/2018 15:58:37 Alexis Monroe MD / [facility] Interpreting Provider: Alexis Monroe MD Chest X-Ray 04/27/18 11:21 IMPRESSION: Mild pulmonary edema has increased from the previous study. Small left lower lobe opacity is nonspecific and may represent atelectasis and pleural fluid, with pneumonia not excluded. D/ / 04/27/2018 12:44:55 Rommel Mendoza MD / [facility] Interpreting Provider: Rommel Mendoza MD - Attending Attestation I examined this patient and my medical decision-making was reviewed with the Resident Physician Dr. Salas. I agree with the documented findings, disposition and treatment plan as described except to the extent set forth below. Ms. Lauren is a 63 year old female history of COPD on 3 L oxygen at home admitted here with Sepsis, Pneumonia, developed C. Diff colitis and respiratory failure was transferred to ICU and moved to tele again when pt got stabilized. Pt went into acute hypoxic resp failure on 04/23/18. Now she is breathing comfortably on 4 lit O2. She denied any CP. She i s alert, awake and O x 3. She still having melena / dark colored stools started this afternoon again. She is c/o severe lower abdominal pain too..This morning went into Acute hypoxic resp failure as well as septic shock. Gen: Mild Resp distress Chest: Diminished BS b/l, crackles + Rales +, Moderate wheezing Heart: S1S2+ RRR Ext: No edema a/p 1. Acute on chronic hypoxic resp failure 2. Acute COPD exacerbation 3. Acute Pneumonia - bacterial 4. Septic shock [employer] Dentist consulted Started on Levophed Cont BiPAP broad spec abx resumed Zosyn Cont PO vancomycin d/c IVF due to pulm edema on CXR and worsening resp failure Will hold Lasix for today since she is going to NPO over all very poor prognosis with all the comorbidities talked to pt and her family at bed side , explained to them current care and poor prognosis, however pt still wanted full code informed this to nursing staff and discussed with night staff too. Spent 60 minutes on this pt's critical care time 5. C. Diff colitis Reviewed CT of abd showed diarrheal disease concerning for worsening C. Diff infection especially with current GI bleed so Inc Vancomycin to 500 mg PO QID 6. Acute GI bleed / melena s/p EGD - Mucosal nodule in the esophagus noticed with gastric atrophy s/p Colonoscopy 04/12/18 - no pseudomembrane / feliz colon noticed close monitoring of Hb for now Cont holding ASA, Plavix and SQ heparin SCD's for DVT prophylaxis <Josue,Lucero - Last Filed: 04/27/18 09:35> (2) COPD (chronic obstructive pulmonary disease) Qualifiers: COPD type: chronic bronchitis Chronic bronchitis type: mucopurulent Qualified Code(s): J41.1 - Mucopurulent chronic bronchitis (3) Pneumonia Qualifiers: Pneumonia type: due to other aerobic Gram-negative bacteria Laterality: bilateral Lung location: lower lobe of lung Qualified Code(s): J15.6 - Pneumonia due to other Gram-negative bacteria (5) Diabetes type 2, controlled 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 use Diabetes mellitus complication status: with hyperglycemia Qualified Code(s): E11.65 - Type 2 diabetes mellitus with hyperglycemia; Z79.4 - ict managers (current) use of insulin (6) Anemia Qualifiers: Anemia type: iron deficiency Iron deficiency anemia type: chronic blood loss Qualified Code(s): D50.0 - Iron deficiency anemia secondary to blood loss (chronic) (8) Hepatitis A Qualifiers: Hepatic coma status: without hepatic coma Qualified Code(s): B15.9 - Hepatitis A without hepatic coma (9) Sepsis Qualifiers: Sepsis type: sepsis due to unspecified organism Qualified Code(s): A41.9 - Se psis, unspecified organism (12) Hypertension Qualifiers: Hypertension type: essential hypertension Qualified Code(s): I10 - Essential (primary) hypertension <Alex Parham - Last Filed: 04/27/18 19:09> (1) COPD (chronic obstructive pulmonary disease) Qualifiers: COPD type: chronic bronchitis Chronic bronchitis type: mucopurulent Qualified Code(s): J41.1 - Mucopurulent chronic bronchitis (2) Pneumonia Qualifiers: Pneumonia type: due to unspecified organism Laterality: left Lung location: lower lobe of lung Qualified Code(s): J18.1 - Lobar pneumonia, unspecified organism (4) Diabetes type 2, controlled 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 use Diabetes mellitus complication status: with hyperglycemia Qualified Code(s): E11.65 - Type 2 diabetes mellitus with hyperglycemia; Z79.4 - ict managers (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 (13) Acute and chronic respiratory failure Qualifiers: Respiratory failure complication: hypoxia and hypercapnia Qualified Code(s): J96.21 - Acute and chronic respiratory failure with hypoxia; J96.22 - Acute and chronic respiratory failure with hypercapnia (14) GI bleed Qualifiers: GI bleed type/associated pathology: unspecified gastrointestinal hemorrhage type Qualified Code(s): K92.2 - Gastrointestinal hemorrhage, unspecified
[2018-04-27] MEDS: Furosemide 40 MG TABLET PO SCH (10:21)
[2018-04-27] MEDS: Metoprolol 100 MG TABLET PO SCH ×2 (10:21→19:53)
[2018-04-27] MEDS: Gabapentin 100 MG CAPSULE PO SCH ×3 (10:21→19:53)
[2018-04-27] MEDS: amLODIPine 5 MG TABLET PO SCH (10:21)
[2018-04-27] MEDS: Lactobacillus 1 EACH CAP.SPRINK PO SCH ×2 (10:21→19:53)
[2018-04-27] MEDS: predniSONE 20 MG TABLET PO SCH (10:21)
[2018-04-27] MEDS: Sucralfate 1 GM TABLET PO SCH ×3 (10:21→13:56)
[2018-04-27] MEDS: Insulin DETEMIR 100 UNIT/ML X5UNITS SQ SCH (10:22)
[2018-04-27] MEDS: Vancomycin Oral Soln 125 MG/2.5 ML UDC PO SCH ×4 (10:22→19:53)
[2018-04-27] MEDS: Insulin LISPRO 300 UNITS/3 ML VIAL SQ SCH ×4 (10:24→23:38)
[2018-04-27] MEDS ORDERED: methylPREDNISolone 125 MG/2 ML VIAL ONE (11:09)
[2018-04-27] MEDS ORDERED: 0.9 % Sodium Chloride 250 ML ONE ×2 (11:09→14:43)
[2018-04-27] MEDS ORDERED: 0.9 % Sodium Chloride 250 ML IVC ONE (11:16)
[2018-04-27] MEDS ORDERED: methylPREDNISolone 125 MG/2 ML VIAL IVP ONE (11:16)
[2018-04-27 11:20] LABS: ABG Base Excess -8 mEq/L (-2 to 3); ABG HCO3 20 mEq/L (21-27); ABG Oxygen Saturation 89 % (95-98); ABG PCO2 50 mmHg (35-45); ABG PO2 69 mmHg (85-104); ABG TCO2 21 mEq/L (20-26)
--- NOTE | 2018-04-27 11:46 | Pulmonology Progress Note ---
<Bradley Obando M - Last Filed: 04/27/18 12:02> Objective PUL Vital signs: Last Vital Signs Temp 99.0 F 04/27/18 11:09 Pulse 85 04/27/18 11:20 Resp 24 04/27/18 11:20 BP 93/57 04/27/18 11:20 Pulse Ox 95 04/27/18 11:20 Results - Laboratory Findings CBC and BMP: 04/27/18 03:55 04/27/18 03:55 ABG ABG pH 7.20 pH Units (7.32-7.45) L* 04/27/18 11:17 ABG pCO2 50 mmHg (35-45) H 04/27/18 11:17 ABG pO2 69 mmHg (85-104) L 04/27/18 11:17 ABG O2 Saturation 89 % (95-98) L 04/27/18 11:17 PT/INR, D-dimer PT 13.2 Seconds (9.4-12.1) H 04/19/18 06:20 Abnormal lab findings: Abnormal lab results WBC 23.9 K/mcL (4.3-11.1) H 04/27/18 03:55 RBC 2.82 M/mcL (3.82-4.97) L 04/27/18 03:55 Hgb 7.4 g/dL (11.5-15.4) L 04/27/18 03:55 Hct 23.6 % (35.3-44.9) L 04/27/18 03:55 MCH 26.2 pg (28.0-33.3) L 04/27/18 03:55 MCHC 31.4 g/dL (31.6-35.5) L 04/27/18 03:55 RDW 19.1 % (11.5-14.5) H 04/27/18 03:55 MPV 14.0 fL (9.4-12.4) H 04/27/18 03:55 Neutrophils # 22.5 K/mcL (1.6-8.9) H 04/27/18 03:55 Nucleated RBCs/100 WBC 0.1 /100 WBC (0) H 04/26/18 05:13 Hyposegmented Neuts Present (Not Present) A 04/12/18 01:20 Reactive Lymphocytes Present (Not Present) A 04/26/18 05:13 Toxic Granulation Present (Not Present) A 04/17/18 03:50 Dohle Bodies Present (Not Present) A 04/12/18 22:15 Clumped Platelets Few (Not Present) A 04/12/18 01:20 Large Platelets Present (Not Present) A 04/12/18 22:15 Immature Plt Fraction 22.1 % (1.1-6.1) H 04/25/18 06:15 Polychromasia 1+ (Not Present) A 04/24/18 03:30 Hypochromasia Present (Not Present) A 04/26/18 05:13 Poikilocytosis 2+ (Not Present) A 04/24/18 03:30 Anisocytosis 2+ (Not Present) A 04/26/18 05:13 Microcytosis Present (Not Present) A 04/26/18 05:13 Macrocytosis Present (Not Present) A 04/24/18 03:30 Target Cells 1+ (Not Present) A 04/24/18 03:30 Tear Drop Cells 1+ (Not Present) A 04/04/18 05:46 Schistocytes 1+ (Not Present) A 04/24/18 03:30 PT 13.2 Seconds (9.4-12.1) H 04/19/18 06:20 APTT 37.0 Seconds (26.0-36.0) H 04/13/18 03:05 ABG pH 7.20 pH Units (7.32-7.45) L* 04/27/18 11:17 ABG pCO2 50 mmHg (35-45) H 04/27/18 11:17 ABG pO2 69 mmHg (85-104) L 04/27/18 11:17 ABG HCO3 20 mEq/L (21-27) L 04/27/18 11:17 ABG O2 Saturation 89 % (95-98) L 04/27/18 11:17 ABG Base Excess -8 mEq/L (-2 to 3) L 04/27/18 11:17 VBG pH 7.27 pH Units (7.32-7.42) L 04/12/18 22:34 VBG pCO2 66 mmHg (41-51) H 04/12/18 22:34 VBG HCO3 30 mEq/L (21-27) H 04/12/18 22:34 Sodium 146 mEq/L (136-145) H 04/27/18 03:55 Chloride 109 mEq/L (98-107) H 04/27/18 03:55 BUN 51 mg/dL (8-23) H 04/27/18 03:55 Creatinine 1.44 mg/dL (0.60-1.20) H 04/27/18 03:55 Est GFR ( Amer) 44 (> 60) L 04/27/18 03:55 Est GFR (Non-Af Amer) 37 (> 60) L 04/27/18 03:55 BUN/Creatinine Ratio 35 (6-26) H 04/27/18 03:55 Glucose 295 mg/dL (70-105) H 04/27/18 03:55 POC Glucose 177 mg/dL (70-99) H 04/26/18 22:00 Hemoglobin A1c 6.8 % (-5.6) H 03/26/18 06:14 Calculated Osmolality 327 (280-300) H 04/27/18 03:55 Venous Ioniz Calcium 0.98 mmol/L (1.15-1.35) L 04/15/18 15:55 Iron < 10 mcg/dL (50-170) L 03/29/18 05:53 Transferrin 158 mg/dL (203-362) L 03/29/18 05:53 ALT 95 Units/L (7-52) H 04/19/18 06:20 Alkaline Phosphatase 202 Units/L (34-104) H 04/19/18 06:20 Troponin I 0.06 ng/mL (< 0.04) H* 04/13/18 03:20 B-Natriuretic Peptide 185 pg/mL (Less than 100) H 03/25/18 00:59 Serum Total Protein 5.3 g/dL (6.4-8.9) L 04/19/18 06:20 Albumin 2.4 g/dL (3.5-5.7) L 04/19/18 06:20 Albumin/Globulin Ratio 0.8 (1.1-2.2) L 04/19/18 06:20 Urine Clarity Hazy (Clear) A 04/11/18 20:37 Ur Leukocyte Esterase Small (Negative) H 04/11/18 20:37 Urine Microscopic RBC 3-5 per hpf (0-3) H 03/27/18 04:15 Urine Microscopic WBC 15-30 per hpf (0-3) H 04/11/18 20:37 Ur Squamous Epith Cells Many per lpf (None-Few) H 04/11/18 20:37 Urine Bacteria Many per hpf (None-Few) H 04/11/18 20:37 Urine Yeast Many per hpf (None Seen) H 04/11/18 20:37 Ur Culture Indicated? NO. (NO) A 04/11/18 20:37 Stl C. diff Tox B Gene Positive (Negative) A 03/26/18 20:10 Stl C. diff Tox A/B PCR See reflex test (Not detect) A 03/26/18 20:10 Vancomycin Trough 19 mcg/mL (5-10) H 04/19/18 06:20 EKTA Screen DETECTED (None Detected) A 04/05/18 14:52 EKTA Titer 1:160 (<1:80) H 04/05/18 14:52 Mitochondria M2 IgG Ab 45.3 Units (0.0-20.0) H 04/05/18 14:52 Hepatitis A Ab Total POSITIVE (Negative) A 04/12/18 17:14 Mycoplasma pneumon IgG 0.48 U/L (<=0.09) H 04/05/18 12:12 - Clinical Findings Intake & Output: Intake & Output 04/26/18 04/27/18 04/27/18 23:59 07:59 15:59 Intake Total 50 / 50 1000 / 1000 Output Total 1410 / 1410 Balance -1360 / -1360 1000 / 1000 Consult Discharge Plan - Plan Referrals: Kathy Acosta DO [Resident] - 04/26/18 10:00 am - Attending Attestation I examined this patient and my medical decision-making was reviewed with the Resident Physician. I agree with the documented findings, disposition and treatment plan as described except to the extent set forth below. Patient seen and examined. Labs, radiology, chart personally reviewed. Primary team requested patient to be transferred to ICU because of the de terioration of her condition and respiratory status. 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 Patient has acute on chronic respiratory failure. Patient on noninvasive ventilation and acceptable oxygenation with reasonable ABG finding, however with her generalized condition I suspect she might need invasive mechanical intubation and transfer her to ICU is reasonable. However with her multiple comorbidities I feel palliative care consultation is reasonable and she has prolonged hospitalization with multiple comorbidities. Noninvasive ventilation short-term is acceptable. Cardiovascular: Patient condition could deteriorate GI: Nutrition per dietary and GI prophylaxis per routine. Patient is being treated for sepsis and she is on broad-spectrum antibiotics. Heme: DVT prophylaxis per routine ID: Continue antibiotics and plan to de-escalation Renal; urine out put and renal funtion reviewed. Patient has some evidence of metabolic acidosis. Checking lactic acid. Endorcine: blood glucose is monitored Lines: all lines checked and no evidence of infections Skin: skin care to prevent pressure ulcers per nursing routine care I spent 35 min of Critical Care time with this patient. It involved decision making of high complexity to assess, manipulate, and support vital organ system failure and/or to prevent further life threatening deterioration of the truong ent's condition. The time involved in the performance of separately reportable procedures was not counted toward critical care time. <Keven Ng R - Last Filed: 04/27/18 16:01> Date of Encounter: 04/27/18 Time of Encounter: 14:41 Assessment and Plan (1) Acute and chronic respiratory failure Current Visit: Yes Status: Chronic Acute on chronic respiratory failure with hypoxia and hypercapnia. Respiratory failure secondary to COPD, pneumonia, and pulmonary congestion. Patient hospital course has been prolonged and is now greater than 30 days in length. Acute worsening of respiratory status this afternoon with increased work of breathing and pulse oximetry of 65% on nasal cannula. Patient was placed on BiPAP with increase oxygen saturation noted. Patient was transferred to the ICU for further observation and management due to capacity for further respiratory decline. Patient remains BiPAP dependent requiring high levels of oxygen s upplementation. ABG was done and reveals a mixed respiratory and metabolic acidosis. Will obtain lactic acid. Continue BiPAP as needed for respiratory support Continue when necessary duo nebs 40 mg prednisone daily Continue Lasix as tolerated by blood pressure and renal status Palliative consult to establish goals of care. This patient with multiple comorbidities and extended hospital stay is certainly at risk for respiratory decline which may require invasive ventilation, will need to establish goals of care moving forward. Qualifiers: Respiratory failure complication: hypoxia and hypercapnia Qualified Code(s): J96.21 - Acute and chronic respiratory failure with hypoxia; J96.22 - Acute and chronic respiratory failure with hypercapnia (2) COPD (chronic obstructive pulmonary disease) Current Visit: Yes Status: Chronic History of COPD. Worsening respiratory status currently BiPAP dependent Continue respiratory support management as outlined above Qualifiers: COPD type: chronic bronchitis Chronic bronchitis type: mucopurulent Qualified Code(s): J41.1 - Mucopurulent chronic bronchitis (3) GI bleed Current Visit: Yes Status: Acute Patient with history of C. difficile colitis, remains on vancomycin orally. Hemoglobin has been decreasing in the setting of multiple daily bloody bowel movements. EGD completed by GI yesterday with no evidence of bleeding or gastritis. Colonoscopy on 04/12 without evidence of inflammation or bleeding. CT abdomen and pelvis on 04/26 without findings of ischemia or inflammation. Hemoglobin this morning of 7.1, patient remaining persistently hypotensive today We will transfuse 2 units of PRBCs today Follow serial H/H Continue to hold antiplatelets aspirin and Plavix in the setting of acute blood loss anemia Continue PPI prophylaxis Consider GI reconsultation if ongoing bleeding Qualifiers: GI bleed type/associated pathology: unspecified gastrointestinal hemorrhage type Qualified Code(s): K92.2 - Gastrointestinal hemorrhage, unspecified (4) Pneumonia Current Visit: Yes Status: Acute Left lower lobe pneumonia with radiographic improvement on repeat chest x-ray this afternoon. Patient has been restarted on Zosyn, will continue antibiotic coverage Infectious diseases is following, appreciate the recommendations Supplemental oxygenation and respiratory support as outlined above Qualifiers: Pneumonia type: due to unspecified organism Laterality: left Lung location: lower lobe of lung Qualified Code(s): J18.1 - Lobar pneumonia, unspecified organism (5) C. difficile colitis Current Visit: Yes Status: Resolved C. difficile colitis positive at admission, colonoscopy on 04/12 negative for toxic megacolon or pseudomembranes. Patient remains on oral vancomycin day 30, initially diarrhea bowel movements did improve, however bloody diarrhea has returned Continue by mouth vancomycin Infectious diseases is following, appreciate their recommendations (6) Anemia Current Visit: Yes Status: Acute Worsening acute blood loss anemia in the setting of suspected GI bleed with bloody diarrhea. Most recent hemoglobin of 7.1 Will transfuse 2 units of PRBCs Continue PPI prophylaxis Serial H/H Continue transfusions as necessary Qualifiers: Anemia type: iron deficiency Iron deficiency anemia type: chronic blood loss Qualified Code(s): D50.0 - Iron deficiency anemia secondary to blood loss (chronic) (7) Diabetes type 2, controlled Current Visit: Yes Status: Chronic Blood glucose in the low 300s this morning. Patient has been on corrective sliding scale insulin. 15 units Levemir initiated this a.m., continue sliding scale insulin Follow blood glucose and adjust regimen as necessary for adequate glycemic control Qualifiers: Diabetes mellitus residential insulin use: with front desk monitor use Diabetes mellitus complication status: with hyperglycemia Qualified Code(s): E11.65 - Type 2 diabetes mellitus with hyperglycemia; Z79.4 - care home (current) use of insulin (8) NIGEL (acute kidney injury) Current Visit: Yes Status: Acute Patient with persistent acute kidney injury, she did receive Lindsay continues renal replacement therapy approximately 10 days ago with improvement in renal function following this. Patient renal function remains below her baseline however has been stable for past several days. Patient is making urine. Continue to monitor renal function and electrolytes, replace as necessary avoid nephrotoxic agents when possible. (9) Sepsis Current Visit: Yes Status: Acute Persistent sepsis in the setting of pneumonia, GI bleed, C. difficile colitis, and possible hepatitis A. Patient with decreasing blood pressure today and elevated white blood cell count Have consulted PICC team to place PICC line Will order and begin Levophed vasopressor support as necessary to maintain a map of greater than 60 Obtain lactic acid Continue antibiotics with Zosyn and oral vancomycin Infectious diseases is following, appreciate their recommendations Qualifiers: Sepsis type: sepsis due to unspecified organism Qualified Code(s): A41.9 - Sepsis, unspecified organism (10) DVT prophylaxis Current Visit: Yes Status: Acute Holding chemical prophylaxis in the setting of acute blood loss anemia. Continue with mechanical DVT prophylaxis with bilateral lower extremity SCDs Subjective Principal diagnosis: Sepsis Interval history: Patient presenting from floor to ICU for worsening respiratory failure and subjective shortness of breath. Patient is currently on BiPAP with increased work of breathing and shortness of breath. Patient reports several recent bowel movements which are partially more formed in recent days however she states they still remain red in color. Endorses mild generalized abdominal pain. Denies nausea, vomiting, fever, chills, chest pain. Objective PUL Vital signs: Last Vital Signs Temp 99.0 F 04/27/18 11:09 Pulse 85 04/27/18 11:20 Resp 24 04/27/18 11:20 BP 93/57 04/27/18 11:20 Pulse Ox 95 04/27/18 11:20 General appearance: other (Mild to moderate distress, patient with increased work of breathing. 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9) L 04/27/18 03:55 MCH 26.2 pg (28.0-33.3) L 04/27/18 03:55 MCHC 31.4 g/dL (31.6-35.5) L 04/27/18 03:55 RDW 19.1 % (11.5-14.5) H 04/27/18 03:55 MPV 14.0 fL (9.4-12.4) H 04/27/18 03:55 Neutrophils # 22.5 K/mcL (1.6-8.9) H 04/27/18 03:55 Nucleated RBCs/100 WBC 0.1 /100 WBC (0) H 04/26/18 05:13 Hyposegmented Neuts Present (Not Present) A 04/12/18 01:20 Reactive Lymphocytes Present (Not Present) A 04/26/18 05:13 Toxic Granulation Present (Not Present) A 04/17/18 03:50 Dohle Bodies Present (Not Present) A 04/12/18 22:15 Clumped Platelets Few (Not Present) A 04/12/18 01:20 Large Platelets Present (Not Present) A 04/12/18 22:15 Immature Plt Fraction 22.1 % (1.1-6.1) H 04/25/18 06:15 Polychromasia 1+ (Not Present) A 04/24/18 03:30 Hypochromasia Present (Not Present) A 04/26/18 05:13 Poikilocytosis 2+ (Not Present) A 04/24/18 03:30 Anisocytosis 2+ (Not Present) A 04/26/18 05:13 Microcytosis Present (Not Present) A 04/26/18 05:13 Macrocytosis Present (Not Present) A 04/24/18 03:30 Target Cells 1+ (Not Present) A 04/24/18 03:30 Tear Drop Cells 1+ (Not Present) A 04/04/18 05:46 Schistocytes 1+ (Not Present) A 04/24/18 03:30 PT 13.2 Seconds (9.4-12.1) H 04/19/18 06:20 APTT 37.0 Seconds (26.0-36.0) H 04/13/18 03:05 ABG pH 7.20 pH Units (7.32-7.45) L* 04/27/18 11:17 ABG pCO2 50 mmHg (35-45) H 04/27/18 11:17 ABG pO2 69 mmHg (85-104) L 04/27/18 11:17 ABG HCO3 20 mEq/L (21-27) L 04/27/18 11:17 ABG O2 Saturation 89 % (95-98) L 04/27/18 11:17 ABG Base Excess -8 mEq/L (-2 to 3) L 04/27/18 11:17 VBG pH 7.27 pH Units (7.32-7.42) L 04/12/18 22:34 VBG pCO2 66 mmHg (41-51) H 04/12/18 22:34 VBG HCO3 30 mEq/L (21-27) H 04/12/18 22:34 Sodium 146 mEq/L (136-145) H 04/27/18 03:55 Chloride 109 mEq/L (98-107) H 04/27/18 03:55 BUN 51 mg/dL (8-23) H 04/27/18 03:55 Creatinine 1.44 mg/dL (0.60-1.20) H 04/27/18 03:55 Est GFR ( Amer) 44 (> 60) L 04/27/18 03:55 Est GFR (Non-Af Amer) 37 (> 60) L 04/27/18 03:55 BUN/Creatinine Ratio 35 (6-26) H 04/27/18 03:55 Glucose 295 mg/dL (70-105) H 04/27/18 03:55 POC Glucose 177 mg/dL (70-99) H 04/26/18 22:00 Hemoglobin A1c 6.8 % (-5.6) H 03/26/18 06:14 Calculated Osmolality 327 (280-300) H 04/27/18 03:55 Venous Ioniz Calcium 0.98 mmol/L (1.15-1.35) L 04/15/18 15:55 Iron < 10 mcg/dL (50-170) L 03/29/18 05:53 Transferrin 158 mg/dL (203-362) L 03/29/18 05:53 ALT 95 Units/L (7-52) H 04/19/18 06:20 Alkaline Phosphatase 202 Units/L (34-104) H 04/19/18 06:20 Troponin I 0.06 ng/mL (< 0.04) H* 04/13/18 03:20 B-Natriuretic Peptide 185 pg/mL (Less than 100) H 03/25/18 00:59 Serum Total Protein 5.3 g/dL (6.4-8.9) L 04/19/18 06:20 Albumin 2.4 g/dL (3.5-5.7) L 04/19/18 06:20 Albumin/Globulin Ratio 0.8 (1.1-2.2) L 04/19/18 06:20 Urine Clarity Hazy (Clear) A 04/11/18 20:37 Ur Leukocyte Esterase Small (Negative) H 04/11/18 20:37 Urine Microscopic RBC 3-5 per hpf (0-3) H 03/27/18 04:15 Urine Microscopic WBC 15-30 per hpf (0-3) H 04/11/18 20:37 Ur Squamous Epith Cells Many per lpf (None-Few) H 04/11/18 20:37 Urine Bacteria Many per hpf (None-Few) H 04/11/18 20:37 Urine Yeast Many per hpf (None Seen) H 04/11/18 20:37 Ur Culture Indicated? NO. (NO) A 04/11/18 20:37 Stl C. diff Tox B Gene Positive (Negative) A 03/26/18 20:10 Stl C. diff Tox A/B PCR See reflex test (Not detect) A 03/26/18 20:10 Vancomycin Trough 19 mcg/mL (5-10) H 04/19/18 06:20 EKTA Screen DETECTED (None Detected) A 04/05/18 14:52 EKTA Titer 1:160 (<1:80) H 04/05/18 14:52 Mitochondria M2 IgG Ab 45.3 Units (0.0-20.0) H 04/05/18 14:52 Hepatitis A Ab Total POSITIVE (Negative) A 04/12/18 17:14 Mycoplasma pneumon IgG 0.48 U/L (<=0.09) H 04/05/18 12:12 - Clinical Findings Intake & Output: Intake & Output 04/26/18 04/27/18 04/27/18 23:59 07:59 15:59 Intake Total 50 / 50 1000 / 1000 Output Total 1410 / 1410 Balance -1360 / -1360 1000 / 1000
[2018-04-27 12:37] LABS: Hematocrit 23.3 % (35.3-44.9); Hemoglobin 7.1 g/dL (11.5-15.4); Immature Granulocytes % 0.2 % (0-4); Lymphocytes # 0.7 K/mcL (0.6-4.6); Lymphocytes % 5.9 %; Mean Corpuscular HGB Conc 30.5 g/dL (31.6-35.5); Mean Corpuscular Hemoglobin 26.7 pg (28.0-33.3); Mean Corpuscular Volume 87.6 fL (83.0-100.0); Mean Platelet Volume 14.4 fL (9.4-12.4); Monocytes # 0.1 K/mcL (0.0-1.3); Monocytes % 0.9 %; Nucleated Red Blood Cells 0.2 /100 WBC (0); Platelet Count 186 K/mcL (140-400); Red Blood Count 2.66 M/mcL (3.82-4.97); Red Cell Distribution Width 19.5 % (11.5-14.5)
[2018-04-27 12:39] LABS: Neutrophils # 10.2 K/mcL (1.6-8.9)
[2018-04-27 13:00] LABS: Platelet Estimate Normal (Normal)
[2018-04-27] MEDS: Piperacillin/Tazobactam 3.375 GM in 0.9 % Sodium Chloride Mini Bag 100 ML IVPB SCH ×2 (13:53→19:52)
[2018-04-27] MEDS: 0.9 % Sodium Chloride 500 ML IVC SCH (14:39)
[2018-04-27 15:09] LABS: Albumin/Globulin Ratio 0.8 (1.1-2.2); Bilirubin,Total 0.5 mg/dL (0.3-1.0); Calcium 8.1 mg/dL (8.6-10.3); Globulin 2.6 g/dL (2.4-3.5); Magnesium 1.9 mg/dL (1.6-2.6); Phosphorous 6.5 mg/dL (2.7-4.5); Potassium 3.8 mEq/L (3.5-5.1); Total Protein 4.6 g/dL (6.4-8.9)
[2018-04-27] MEDS: Norepinephrine 4 MG in D5% in Water 250 ML IVC SCH ×3 (16:36→23:21)
[2018-04-27] MEDS: *HR* Dextrose 50 % in Water (Syg) 50 ML SYRINGE IVP PRN ×2 (18:26→23:25)
[2018-04-27] MEDS ORDERED: *HR* FentaNYL (PF) 100 MCG/2 ML VIAL IVP PRN (18:41)
[2018-04-27] MEDS: traZODone 50 MG TABLET PO SCH (19:53)
[2018-04-27 21:44] LABS: ABG Base Excess -10 mEq/L (-2 to 3); ABG HCO3 19 mEq/L (21-27); ABG Oxygen Saturation 79 % (95-98); ABG PCO2 53 mmHg (35-45); ABG PH 7.16 pH Units (7.32-7.45); ABG PO2 56 mmHg (85-104); ABG TCO2 20 mEq/L (20-26)
[2018-04-27] MEDS ORDERED: FentaNYL (PF) 1,000 MCG in 0.9 % Sodium Chloride 80 ML IVC SCH (21:45)
[2018-04-27] MEDS ORDERED: Artificial Tears SOLN 15 ML BOTTLE BOTH EYES PRN (22:03)
--- NOTE | 2018-04-27 22:12 | Procedure Note ---
Date of procedure: 04/27/18 Pre-op diagnosis: Acute respiratory failure Post-op diagnosis: same Procedure: A time-out was completed verifying correct patient, procedure, site, positioning, and special equipment if applicable. The patient was placed in a flat position. Sedation was obtained using etomidate 20 mg, Versed 4 mg.The patient was easily ventilated using an ambu bag. The MAC 3 BLADE was used and inserted into the oropharynx at which time there was a Grade 1 view of the vocal cords. A 7-luxembourger endotracheal tube was inserted and visualized going through the vocal cords. The stylette was removed. Colorimetric change was visualized on the CO2 meter. Breath sounds were heard in both lung garcia equally. The endotracheal tube was placed at 24 cm, measured at the teeth. Dr. matta was present for the entire procedure. Followup CXR ordered. Anesthesia: JUAN ALBERTO Surgeon: Ben Young Was there an facilities maintenance assistant present: No Estimated blood loss (cc): 0 Specimen: no Condition: critical Disposition: ICU
[2018-04-27] MEDS: Artificial Tears SOLN 15 ML BOTTLE BOTH EYES SCH (23:41)
[2018-04-28 00:17] LABS: ABG Base Excess -9 mEq/L (-2 to 3); ABG HCO3 20 mEq/L (21-27); ABG Oxygen Saturation 95 % (95-98); ABG PCO2 55 mmHg (35-45); ABG PH 7.16 pH Units (7.32-7.45); ABG PO2 95 mmHg (85-104); ABG TCO2 21 mEq/L (20-26); Blood Gas Modality ASSIST CONTROL; Blood Gas PEEP 5 cm H2O; Blood Gas Respiration Rate 16; Blood Gas VT 380 cc
[2018-04-28] MEDS ORDERED: Sodium Bicarbonate 150 MEQ in D5% in Water 1,000 ML IVC SCH (01:00)
[2018-04-28] MEDS: Norepinephrine 8 MG in D5% in Water 500 ML IVC SCH ×3 (01:30→11:27)
[2018-04-28] MEDS: Phenylephrine 10 MG in D5% in Water 250 ML IVC SCH ×3 (03:06→08:00)
[2018-04-28] MEDS: Piperacillin/Tazobactam 3.375 GM in 0.9 % Sodium Chloride Mini Bag 100 ML IVPB SCH (03:06)
[2018-04-28] MEDS: Artificial Tears SOLN 15 ML BOTTLE BOTH EYES SCH ×2 (03:07→08:26)
[2018-04-28] MEDS ORDERED: 0.9 % Sodium Chloride 1,000 ML ONE (03:39)
[2018-04-28] MEDS: Ipratropium/Albuterol Neb 3 ML IH SCH ×2 (03:47→07:25)
[2018-04-28 03:48] LABS: Basophils % 0.7 %; Eosinophils % 0.7 %; Monocytes % 2.9 %
[2018-04-28 03:50] LABS: Hematocrit 33.8 % (35.3-44.9); Hemoglobin 10.6 g/dL (11.5-15.4); Immature Granulocytes % 0.7 % (0-4); Lymphocytes # 0.3 K/mcL (0.6-4.6); Lymphocytes % 21.3 %; Mean Corpuscular HGB Conc 31.4 g/dL (31.6-35.5); Mean Corpuscular Hemoglobin 27.8 pg (28.0-33.3); Mean Corpuscular Volume 88.7 fL (83.0-100.0); Nucleated Red Blood Cells 4.4 /100 WBC (0); Platelet Count 110 K/mcL (140-400); Red Blood Count 3.81 M/mcL (3.82-4.97); Red Cell Distribution Width 17.2 % (11.5-14.5); Segmented Neutrophils % 73.7 %
[2018-04-28 04:07] LABS: Calcium 7.6 mg/dL (8.6-10.3); Magnesium 1.9 mg/dL (1.6-2.6); Potassium 4.2 mEq/L (3.5-5.1)
[2018-04-28 04:43] LABS: Platelet Estimate Decreased (Normal)
[2018-04-28 04:46] LABS: Large Platelets Present (Not Present); Reactive Lymphocytes Present (Not Present)
[2018-04-28 04:47] LABS: Anisocytosis 1+ (Not Present); Poikilocytosis 1+ (Not Present)
--- NOTE | 2018-04-28 05:59 | Procedure Note ---
Date of procedure: 04/28/18 Pre-op diagnosis: septic shcok Post-op diagnosis: same Procedure: A time-out was completed verifying correct patient, procedure, site, positioning, and special equipment if applicable. Allens test was performed to ensure adequate perfusion. The patients right wrist was prepped and draped in sterile fashion. A 18G Arrow arterial line was introduced into the radial artery. The catheter was threaded over the guide wire and the needle was removed with appropriate pulsatile blood return. The catheter was then sutured in place to the skin and a sterile dressing applied. Perfusion to the extremity distal to the point of catheter insertion was checked and found to be adequate. Anesthesia: MAC Surgeon: Ben Young Was there an mail handler assistant present: No Estimated blood loss (cc): 5 Specimen: n/a Pathology: none sent Condition: critical Disposition: ICU
[2018-04-28] MEDS ORDERED: Famotidine 20 MG/2 ML VIAL IVP SCH (06:00)
[2018-04-28 06:11] LABS: ABG Base Excess -12 mEq/L (-2 to 3); ABG HCO3 16 mEq/L (21-27); ABG Oxygen Saturation 89 % (95-98); ABG PCO2 49 mmHg (35-45); ABG PH 7.13 pH Units (7.32-7.45); ABG PO2 74 mmHg (85-104); ABG TCO2 18 mEq/L (20-26); Blood Gas Modality ASSIST CONTROL; Blood Gas PEEP 5 cm H2O; Blood Gas Respiration Rate 16; Blood Gas VT 400 cc
[2018-04-28] MEDS: Insulin LISPRO 300 UNITS/3 ML VIAL SQ SCH (06:21)
[2018-04-28] MEDS: Furosemide 40 MG TABLET PO SCH (07:19)
[2018-04-28] MEDS: Insulin DETEMIR 100 UNIT/ML X5UNITS SQ SCH (07:19)
[2018-04-28] MEDS: Metoprolol 100 MG TABLET PO SCH (07:19)
[2018-04-28] MEDS: Lactobacillus 1 EACH CAP.SPRINK PO SCH (07:19)
[2018-04-28] MEDS: amLODIPine 5 MG TABLET PO SCH (07:20)
[2018-04-28] MEDS: Gabapentin 100 MG CAPSULE PO SCH (07:20)
[2018-04-28] MEDS: predniSONE 20 MG TABLET PO SCH (07:20)
--- NOTE | 2018-04-28 07:39 | Pulmonology Progress Note ---
<Ishan Obandocarlito M - Last Filed: 04/28/18 09:08> Objective PUL Vital signs: Last Vital Signs Temp 98 F 04/28/18 07:23 Pulse 102 04/28/18 08:48 Resp 31 04/28/18 08:48 BP 54/42 04/28/18 08:48 Pulse Ox 85 04/28/18 08:48 Ventilator Settings Ventilator Settings: Ventilator Settings, Last 8 Hours Ventilator Tidal Volume 450 Setting Ventilator Tidal Volume 450 Setting Ventilator Tidal Volume 400 Setting Ventilator Tidal Volume 400 Setting Ventilator Tidal Volume 400 Setting Ventilator Tidal Volume 400 Setting Ventilator Tidal Volume 400 Setting Ventilator Tidal Volume 400 Setting Ventilator Tidal Volume 400 Setting Ventilator Respiratory Rate 16 Setting Ventilator Respiratory Rate 16 Setting Ventilator Respiratory Rate 16 Setting Ventilator Respiratory Rate 16 Setting Ventilator Respiratory Rate 16 Setting Ventilator Respiratory Rate 16 Setting Ventilator Respiratory Rate 16 Setting Ventilator Respiratory Rate 16 Setting Ventilator Respiratory Rate 16 Setting Actual Respiratory Rate 24 Actual Respiratory Rate 25 Actual Respiratory Rate 28 Actual Respiratory Rate 24 Actual Respiratory Rate 24 Actual Respiratory Rate 24 Actual Respiratory Rate 22 Actual Respiratory Rate 18 Positive End Expiratory 8 Pressure Positive End Expiratory 8 Pressure Positive End Expiratory 5 Pressure Positive End Expiratory 5 Pressure Positive End Expiratory 5 Pressure Positive End Expiratory 5 Pressure Positive End Expiratory 5 Pressure Positive End Expiratory 5 Pressure Positive End Expiratory 5 Pressure Peak Inspiratory Airway 30 Pressure Peak Inspiratory Airway 31 Pressure Peak Inspiratory Airway 24 Pressure Peak Inspiratory Airway 23 Pressure Peak Inspiratory Airway 23 Pressure Peak Inspiratory Airway 23 Pressure Peak Inspiratory Airway 23 Pressure Peak Inspiratory Airway 23 Pressure Results - Laboratory Findings CBC and BMP: 04/28/18 03:30 04/28/18 03:30 ABG ABG pH 7.13 pH Units (7.32-7.45) L* 04/28/18 06:07 ABG pCO2 49 mmHg (35-45) H 04/28/18 06:07 ABG pO2 74 mmHg (85-104) L 04/28/18 06:07 ABG O2 Saturation 89 % (95-98) L 04/28/18 06:07 PT/INR, D-dimer PT 13.2 Seconds (9.4-12.1) H 04/19/18 06:20 Abnormal lab findings: Abnormal lab results WBC 1.4 K/mcL (4.3-11.1) L D 04/28/18 03:30 RBC 3.81 M/mcL (3.82-4.97) L 04/28/18 03:30 Hgb 10.6 g/dL (11.5-15.4) L D 04/28/18 03:30 Hct 33.8 % (35.3-44.9) L 04/28/18 03:30 MCH 27.8 pg (28.0-33.3) L 04/28/18 03:30 MCHC 31.4 g/dL (31.6-35.5) L 04/28/18 03:30 RDW 17.2 % (11.5-14.5) H 04/28/18 03:30 Plt Count 110 K/mcL (140-400) L 04/28/18 03:30 Neutrophils # 1.0 K/mcL (1.6-8.9) L 04/28/18 03:30 Lymphocytes # 0.3 K/mcL (0.6-4.6) L 04/28/18 03:30 Nucleated RBCs/100 WBC 4.4 /100 WBC (0) H 04/28/18 03:30 Hyposegmented Neuts Present (Not Present) A 04/12/18 01:20 Reactive Lymphocytes Present (Not Present) A 04/28/18 03:30 Toxic Granulation Present (Not Present) A 04/17/18 03:50 Dohle Bodies Present (Not Present) A 04/12/18 22:15 Platelet Estimate Decreased (Normal) L 04/28/18 03:30 Clumped Platelets Few (Not Present) A 04/12/18 01:20 Large Platelets Present (Not Present) A 04/28/18 03:30 Immature Plt Fraction 22.1 % (1.1-6.1) H 04/25/18 06:15 Polychromasia 1+ (Not Present) A 04/24/18 03:30 Hypochromasia Present (Not Present) A 04/26/18 05:13 Poikilocytosis 1+ (Not Present) A 04/28/18 03:30 Anisocytosis 1+ (Not Present) A 04/28/18 03:30 Microcytosis Present (Not Present) A 04/26/18 05:13 Macrocytosis Present (Not Present) A 04/24/18 03:30 Target Cells 1+ (Not Present) A 04/24/18 03:30 Tear Drop Cells 1+ (Not Present) A 04/04/18 05:46 Schistocytes 1+ (Not Present) A 04/24/18 03:30 PT 13.2 Seconds (9.4-12.1) H 04/19/18 06:20 APTT 37.0 Seconds (26.0-36.0) H 04/13/18 03:05 ABG pH 7.13 pH Units (7.32-7.45) L* 04/28/18 06:07 ABG pCO2 49 mmHg (35-45) H 04/28/18 06:07 ABG pO2 74 mmHg (85-104) L 04/28/18 06:07 ABG HCO3 16 mEq/L (21-27) L 04/28/18 06:07 ABG Total CO2 18 mEq/L (20-26) L 04/28/18 06:07 ABG O2 Saturation 89 % (95-98) L 04/28/18 06:07 ABG Base Excess -12 mEq/L (-2 to 3) L 04/28/18 06:07 VBG pH 7.27 pH Units (7.32-7.42) L 04/12/18 22:34 VBG pCO2 66 mmHg (41-51) H 04/12/18 22:34 VBG HCO3 30 mEq/L (21-27) H 04/12/18 22:34 Chloride 109 mEq/L (98-107) H 04/28/18 03:30 Carbon Dioxide 19 mEq/L (23-29) L 04/28/18 03:30 BUN 52 mg/dL (8-23) H 04/28/18 03:30 Creatinine 1.80 mg/dL (0.60-1.20) H 04/28/18 03:30 Est GFR ( Amer) 34 (> 60) L 04/28/18 03:30 Est GFR (Non-Af Amer) 28 (> 60) L 04/28/18 03:30 BUN/Creatinine Ratio 29 (6-26) H 04/28/18 03:30 POC Glucose 142 mg/dL (70-99) H 04/28/18 07:18 Hemoglobin A1c 6.8 % (-5.6) H 03/26/18 06:14 Calculated Osmolality 312 (280-300) H 04/28/18 03:30 Lactic Acid > 10.0 mmol/L (0.5-2.2) H* 04/28/18 06:05 Calcium 7.6 mg/dL (8.6-10.3) L 04/28/18 03:30 Venous Ioniz Calcium 0.98 mmol/L (1.15-1.35) L 04/15/18 15:55 Phosphorus 6.5 mg/dL (2.7-4.5) H 04/27/18 13:50 Iron < 10 mcg/dL (50-170) L 03/29/18 05:53 Transferrin 158 mg/dL (203-362) L 03/29/18 05:53 AST 111 Units/L (13-39) H 04/27/18 13:50 ALT 104 Units/L (7-52) H 04/27/18 13:50 Alkaline Phosphatase 124 Units/L (34-104) H 04/27/18 13:50 Troponin I 0.06 ng/mL (< 0.04) H* 04/13/18 03:20 B-Natriuretic Peptide 185 pg/mL (Less than 100) H 03/25/18 00:59 Serum Total Protein 4.6 g/dL (6.4-8.9) L 04/27/18 13:50 Albumin 2.0 g/dL (3.5-5.7) L 04/27/18 13:50 Albumin/Globulin Ratio 0.8 (1.1-2.2) L 04/27/18 13:50 Urine Clarity Hazy (Clear) A 04/11/18 20:37 Ur Leukocyte Esterase Small (Negative) H 04/11/18 20:37 Urine Microscopic RBC 3-5 per hpf (0-3) H 03/27/18 04:15 Urine Microscopic WBC 15-30 per hpf (0-3) H 04/11/18 20:37 Ur Squamous Epith Cells Many per lpf (None-Few) H 04/11/18 20:37 Urine Bacteria Many per hpf (None-Few) H 04/11/18 20:37 Urine Yeast Many per hpf (None Seen) H 04/11/18 20:37 Ur Culture Indicated? NO. (NO) A 04/11/18 20:37 Stl C. diff Tox B Gene Positive (Negative) A 03/26/18 20:10 Stl C. diff Tox A/B PCR See reflex test (Not detect) A 03/26/18 20:10 Vancomycin Trough 19 mcg/mL (5-10) H 04/19/18 06:20 EKTA Screen DETECTED (None Detected) A 04/05/18 14:52 EKTA Titer 1:160 (<1:80) H 04/05/18 14:52 Mitochondria M2 IgG Ab 45.3 Units (0.0-20.0) H 04/05/18 14:52 Hepatitis A Ab Total POSITIVE (Negative) A 04/12/18 17:14 Mycoplasma pneumon IgG 0.48 U/L (<=0.09) H 04/05/18 12:12 - Clinical Findings Intake & Output: Intake & Output 04/27/18 04/28/18 04/28/18 23:59 07:59 15:59 Intake Total 1333 / 1333 1353 / 1353 1475 / 1475 Output Total 720 / 720 125 / 125 Balance 613 / 613 1228 / 1228 1475 / 1475 Consult Discharge Plan - Plan Referrals: Kathy Acosta DO [Resident] - 04/26/18 10:00 am - Attending Attestation I examined this patient and my medical decision-making was reviewed with the Resident Physician. I agree with the documented findings, disposition and treatment plan as described except to the extent set forth below. Patient seen and examined. Labs, radiology, chart personally reviewed. 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 Pulmonary: Patient is requiring vent support and there is combination of acute on chronic respiratory acidosis plus metabolic acidosis and made appropriate vent changes with increasing tidal volume to correct the respiratory acidosis. Cardiovascular: Patient in septic shock and very poor prognosis. GI: Nutrition per dietary and GI prophylaxis per routine. I suspect ischemic bowel. Heme: DVT prophylaxis per routine ID: Continue antibiotics and plan to de-escalation. I have added vancomycin intravenously. Renal; urine out put and renal funtion reviewed. Patient with significant lactic acidosis and has been receiving bicarbonate for the metabolic acidosis, however prognosis is extremely poor. Endorcine: blood glucose is monitored Lines: all lines checked and no evidence of infections Skin: skin care to prevent pressure ulcers per nursing routine care I have met with the family and told him about poor prognosis and recommended based on her prognosis have comfort care and they will think about it. I spent 35 min of Critical Care time with this patient. It involved decision making of high complexity to assess, manipulate, and support vital organ system failure and/or to prevent further life threatening deterioration of the patient's condition. The time involved in the performance of separately reportable procedures was not counted toward critical care time. <Keven Ng R - Last Filed: 04/28/18 09:35> Date of Encounter: 04/28/18 Time of Encounter: 08:38 Assessment and Plan (1) Acute and chronic respiratory failure Current Visit: Yes Status: Chronic Acute on chronic respiratory failure with hypoxia and hypercapnia. Respiratory failure secondary to COPD, pneumonia, and pulmonary congestion in the setting of shock likely related to C. difficile infection which was present upon admission. Patient hospital course has been prolonged and is now greater than 30 days in length. Acute worsening of respiratory status this afternoon with increased work of breathing and pulse oximetry of 65% on nasal cannula. Patient was placed on BiPAP with increase oxygen saturation noted. Patient was transferred to the ICU for further observation and management due to capacity for further respiratory decline. Patient respiratory status did decline overnight and required intubation. She remains intubated and ventilated. ABG done this a.m. revealing a mixed metabolic acidosis and respiratory acidosis, lactate remains greater than 10 At present patient's requiring multiple vasopressors for blood pressure support, unable to keep map greater than 55 Have discussed recent decline in clinical status with the patient's children with Drs. Obando and Daniel. They do understand patient's prognosis is very poor. At this time they would like to continue ventilation until additional family arrives this morning. After this they would like to withdraw aggressive care and transition to comfort management. We are asked by her son to change her code status to DNR-CC, given patients clinical course, illness, and prognosis this is a very reasonable request. Qualifiers: Respiratory failure complication: hypoxia and hypercapnia Qualified Code(s): J96.21 - Acute and chronic respiratory failure with hypoxia; J96.22 - Acute and chronic respiratory failure with hypercapnia (2) Septic shock Current Visit: Yes Status: Acute Persistent sepsis in the setting of pneumonia, GI bleed, C. difficile colitis, and possible hepatitis A. Physiologically the patient is transitioning back into a shock state, likely related to sepsis and critical illness. Patient with worsening hypotension, has had leukocytosis and recent days however was blood cell count has dropped dramatically with most recent value of 1.4 in the setting of her critical illness. Patient is requiring multiple vasopressors for adequate perfusion, lactate >10 Will continue vasopressor support and ventilation, family is asking for short term support until family arrives with plan to withdraw aggressive care. (3) COPD (chronic obstructive pulmonary disease) Current Visit: Yes Status: Chronic History of COPD. worsening respiratory status requiring intubation overnight. We will continue ventilation for the short-term and will plan to transition to comfort management as outlined above. Qualifiers: COPD type: chronic bronchitis Chronic bronchitis type: mucopurulent Qualified Code(s): J41.1 - Mucopurulent chronic bronchitis (4) GI bleed Current Visit: Yes Status: Acute Patient with history of C. difficile colitis, remains on vancomycin orally. Hemoglobin has been downtrending in recent days. Patient did receive 2 units of packed red blood cells history. H&H has been followed and remained stable. Qualifiers: GI bleed type/associated pathology: unspecified gastrointestinal hemorrhage type Qualified Code(s): K92.2 - Gastrointestinal hemorrhage, unspecified (5) Pneumonia Current Visit: Yes Status: Acute Left lower lobe pneumonia. Patient has been restarted on Zosyn We will plan to continue until family is ready to withdraw care and transition to comfort management Qualifiers: Pneumonia type: due to unspecified organism Laterality: left Lung locati on: lower lobe of lung Qualified Code(s): J18.1 - Lobar pneumonia, unspecified organism (6) C. difficile colitis Current Visit: Yes Status: Resolved C. difficile colitis positive at admission, colonoscopy on 04/12 negative for toxic megacolon or pseudomembranes. Patient remains on oral vancomycin day 31, initially diarrhea bowel movements did improve, however bloody diarrhea has returned Continue by mouth vancomycin Infectious diseases is following, appreciate their recommendations (7) Anemia Current Visit: Yes Status: Acute Worsening acute blood loss anemia in the setting of suspected GI bleed with bloody diarrhea. She was transfused 2 units of PRBCs yesterday and hemoglobin and hematocrit remain stable. Qualifiers: Anemia type: iron deficiency Iron deficiency anemia type: chronic blood loss Qualified Code(s): D50.0 - Iron deficiency anemia secondary to blood loss (chronic) (8) Diabetes type 2, controlled Current Visit: Yes Status: Chronic Patient has been on corrective sliding scale insulin. Follow blood glucose and adjust regimen as necessary for adequate glycemic control Qualifiers: Diabetes mellitus long goods drier insulin use: with long goods drier use Diabetes mellitus complication status: with hyperglycemia Qualified Code(s): E11.65 - Type 2 diabetes mellitus with hyperglycemia; Z79.4 - intermediate designer (current) use of insulin (9) NIGEL (acute kidney injury) Current Visit: Yes Status: Acute Patient with persistent acute kidney injury, she did receive Lindsay continues renal replacement therapy approximately 10 days ago with improvement in renal function following this. Patient renal function remains below her baseline however has been stable for past several days and continues to worsen. Patient is making urine. Continue to monitor renal function and electrolytes, replace as necessary avoid nephrotoxic agents when possible. (10) Sepsis Current Visit: Yes Status: Acute Persistent sepsis in the setting of pneumonia, GI bleed, C. difficile colitis, and possible hepatitis A. Patient with worsening hypotension, has had leukocytosis and recent days however was blood cell count has dropped dramatically with most recent value of 1.4 in the setting of her critical illness. Patient is requiring multiple vasopressors for adequate perfusion, lactate >10 Will continue vasopressor support and ventilation, family is asking for short term support until family arrives and they plan to withdraw aggressive care. Qualifiers: Sepsis type: sepsis due to unspecified organism Qualified Code(s): A41.9 - Sepsis, unspecified organism (11) DVT prophylaxis Current Visit: Yes Status: Acute Holding chemical prophylaxis in the setting of acute blood loss anemia. Continue with mechanical DVT prophylaxis with bilateral lower extremity SCDs Subjective Principal diagnosis: Sepsis Interval history: Patient was intubated at approximately 10 PM overnight for worsening respiratory distress. She remains intubated and ventilated this morning. Requiring increased vasopressor support. Objective PUL Vital signs: Last Vital Signs Temp 98 F 04/28/18 07:23 Pulse 105 04/28/18 06:00 Resp 28 04/28/18 06:15 BP 56/43 04/28/18 06:00 Pulse Ox 97 04/28/18 06:15 General appearance: no acute distress, other (Sedated, chronically on appearance) Eyes: nonicteric ENT: oropharynx moist Neck: supple, no lymphadenopathy Effort: normal Auscultation: bilateral: diminished breath sounds, rales Percussion: bilateral: not dull Cardiovascular: other (Tachycardic with regular rhythm) Gastrointestinal: normoactive bowel sounds, soft, non-distended Integumentary: normal Extremities: no cyanosis, no edema, no clubbing Musculoskeletal: other (Contractured right upper and lower extremities) Gait: other (Kyphotic posture) unable to assess due to mental status other (Unable to assess due to mental status) Ventilator Settings Ventilator Settings: Ventilator Settings, Last 8 Hours Ventilator Tidal Volume 400 Setting Ventilator Tidal Volume 400 Setting Ventilator Tidal Volume 400 Setting Ventilator Tidal Volume 400 Setting Ventilator Tidal Volume 400 Setting Ventilator Tidal Volume 400 Setting Ventilator Tidal Volume 400 Setting Ventilator Tidal Volume 380 Setting Ventilator Respiratory Rate 16 Setting Ventilator Respiratory Rate 16 Setting Ventilator Respiratory Rate 16 Setting Ventilator Respiratory Rate 16 Setting Ventilator Respiratory Rate 16 Setting Ventilator Respiratory Rate 16 Setting Ventilator Respiratory Rate 16 Setting Ventilator Respiratory Rate 16 Setting Actual Respiratory Rate 28 Actual Respiratory Rate 24 Actual Respiratory Rate 24 Actual Respiratory Rate 24 Actual Respiratory Rate 22 Actual Respiratory Rate 18 Positive End Expiratory 5 Pressure Positive End Expiratory 5 Pressure Positive End Expiratory 5 Pressure Positive End Expiratory 5 Pressure Positive End Expiratory 5 Pressure Positive End Expiratory 5 Pressure Positive End Expiratory 5 Pressure Positive End Expiratory 5 Pressure Peak Inspiratory Airway 24 Pressure Peak Inspiratory Airway 23 Pressure Peak Inspiratory Airway 23 Pressure Peak Inspiratory Airway 23 Pressure Peak Inspiratory Airway 23 Pressure Peak Inspiratory Airway 23 Pressure Results - Laboratory Findings CBC and BMP: 04/28/18 03:30 04/28/18 03:30 ABG ABG pH 7.13 pH Units (7.32-7.45) L* 04/28/18 06:07 ABG pCO2 49 mmHg (35-45) H 04/28/18 06:07 ABG pO2 74 mmHg (85-104) L 04/28/18 06:07 ABG O2 Saturation 89 % (95-98) L 04/28/18 06:07 PT/INR, D-dimer PT 13.2 Seconds (9.4-12.1) H 04/19/18 06:20 Abnormal lab findings: Abnormal lab results WBC 1.4 K/mcL (4.3-11.1) L D 04/28/18 03:30 RBC 3.81 M/mcL (3.82-4.97) L 04/28/18 03:30 Hgb 10.6 g/dL (11.5-15.4) L D 04/28/18 03:30 Hct 33.8 % (35.3-44.9) L 04/28/18 03:30 MCH 27.8 pg (28.0-33.3) L 04/28/18 03:30 MCHC 31.4 g/dL (31.6-35.5) L 04/28/18 03:30 RDW 17.2 % (11.5-14.5) H 04/28/18 03:30 Plt Count 110 K/mcL (140-400) L 04/28/18 03:30 Neutrophils # 1.0 K/mcL (1.6-8.9) L 04/28/18 03:30 Lymphocytes # 0.3 K/mcL (0.6-4.6) L 04/28/18 03:30 Nucleated RBCs/100 WBC 4.4 /100 WBC (0) H 04/28/18 03:30 Hyposegmented Neuts Present (Not Present) A 04/12/18 01:20 Reactive Lymphocytes Present (Not Present) A 04/28/18 03:30 Toxic Granulation Present (Not Present) A 04/17/18 03:50 Dohle Bodies Present (Not Present) A 04/12/18 22:15 Platelet Estimate Decreased (Normal) L 04/28/18 03:30 Clumped Platelets Few (Not Present) A 04/12/18 01:20 Large Platelets Present (Not Present) A 04/28/18 03:30 Immature Plt Fraction 22.1 % (1.1-6.1) H 04/25/18 06:15 Polychromasia 1+ (Not Present) A 04/24/18 03:30 Hypochromasia Present (Not Present) A 04/26/18 05:13 Poikilocytosis 1+ (Not Present) A 04/28/18 03:30 Anisocytosis 1+ (Not Present) A 04/28/18 03:30 Microcytosis Present (Not Present) A 04/26/18 05:13 Macrocytosis Present (Not Present) A 04/24/18 03:30 Target Cells 1+ (Not Present) A 04/24/18 03:30 Tear Drop Cells 1+ (Not Present) A 04/04/18 05:46 Schistocytes 1+ (Not Present) A 04/24/18 03:30 PT 13.2 Seconds (9.4-12.1) H 04/19/18 06:20 APTT 37.0 Seconds (26.0-36.0) H 04/13/18 03:05 ABG pH 7.13 pH Units (7.32-7.45) L* 04/28/18 06:07 ABG pCO2 49 mmHg (35-45) H 04/28/18 06:07 ABG pO2 74 mmHg (85-104) L 04/28/18 06:07 ABG HCO3 16 mEq/L (21-27) L 04/28/18 06:07 ABG Total CO2 18 mEq/L (20-26) L 04/28/18 06:07 ABG O2 Saturation 89 % (95-98) L 04/28/18 06:07 ABG Base Excess -12 mEq/L (-2 to 3) L 04/28/18 06:07 VBG pH 7.27 pH Units (7.32-7.42) L 04/12/18 22:34 VBG pCO2 66 mmHg (41-51) H 04/12/18 22:34 VBG HCO3 30 mEq/L (21-27) H 04/12/18 22:34 Chloride 109 mEq/L (98-107) H 04/28/18 03:30 Carbon Dioxide 19 mEq/L (23-29) L 04/28/18 03:30 BUN 52 mg/dL (8-23) H 04/28/18 03:30 Creatinine 1.80 mg/dL (0.60-1.20) H 04/28/18 03:30 Est GFR ( Amer) 34 (> 60) L 04/28/18 03:30 Est GFR (Non-Af Amer) 28 (> 60) L 04/28/18 03:30 BUN/Creatinine Ratio 29 (6-26) H 04/28/18 03:30 POC Glucose 142 mg/dL (70-99) H 04/28/18 07:18 Hemoglobin A1c 6.8 % (-5.6) H 03/26/18 06:14 Calculated Osmolality 312 (280-300) H 04/28/18 03:30 Lactic Acid > 10.0 mmol/L (0.5-2.2) H* 04/28/18 06:05 Calcium 7.6 mg/dL (8.6-10.3) L 04/28/18 03:30 Venous Ioniz Calcium 0.98 mmol/L (1.15-1.35) L 04/15/18 15:55 Phosphorus 6.5 mg/dL (2.7-4.5) H 04/27/18 13:50 Iron < 10 mcg/dL (50-170) L 03/29/18 05:53 Transferrin 158 mg/dL (203-362) L 03/29/18 05:53 AST 111 Units/L (13-39) H 04/27/18 13:50 ALT 104 Units/L (7-52) H 04/27/18 13:50 Alkaline Phosphatase 124 Units/L (34-104) H 04/27/18 13:50 Troponin I 0.06 ng/mL (< 0.04) H* 04/13/18 03:20 B-Natriuretic Peptide 185 pg/mL (Less than 100) H 03/25/18 00:59 Serum Total Protein 4.6 g/dL (6.4-8.9) L 04/27/18 13:50 Albumin 2.0 g/dL (3.5-5.7) L 04/27/18 13:50 Albumin/Globulin Ratio 0.8 (1.1-2.2) L 04/27/18 13:50 Urine Clarity Hazy (Clear) A 04/11/18 20:37 Ur Leukocyte Esterase Small (Negative) H 04/11/18 20:37 Urine Microscopic RBC 3-5 per hpf (0-3) H 03/27/18 04:15 Urine Microscopic WBC 15-30 per hpf (0-3) H 04/11/18 20:37 Ur Squamous Epith Cells Many per lpf (None-Few) H 04/11/18 20:37 Urine Bacteria Many per hpf (None-Few) H 04/11/18 20:37 Urine Yeast Many per hpf (None Seen) H 04/11/18 20:37 Ur Culture Indicated? NO. (NO) A 04/11/18 20:37 Stl C. diff Tox B Gene Positive (Negative) A 03/26/18 20:10 Stl C. diff Tox A/B PCR See reflex test (Not detect) A 03/26/18 20:10 Vancomycin Trough 19 mcg/mL (5-10) H 04/19/18 06:20 EKTA Screen DETECTED (None Detected) A 04/05/18 14:52 EKTA Titer 1:160 (<1:80) H 04/05/18 14:52 Mitochondria M2 IgG Ab 45.3 Units (0.0-20.0) H 04/05/18 14:52 Hepatitis A Ab Total POSITIVE (Negative) A 04/12/18 17:14 Mycoplasma pneumon IgG 0.48 U/L (<=0.09) H 04/05/18 12:12 - Clinical Findings Intake & Output: Intake & Output 04/27/18 04/27/18 04/28/18 15:59 23:59 07:59 Intake Total 952 / 952 1333 / 1333 1323 / 1323 Output Total 720 / 720 125 / 125 Balance 952 / 952 613 / 613 1198 / 1198 Weight 61 kg
[2018-04-28] MEDS: Vancomycin Oral Soln 125 MG/2.5 ML UDC PO SCH (08:25)
[2018-04-28] MEDS: Sucralfate 1 GM TABLET PO SCH (08:26)
[2018-04-28] MEDS ORDERED: PHENYLEPHRINE IVC SCH ×2 (08:30→09:00)
[2018-04-28] MEDS ORDERED: WATER IVC SCH ×2 (08:30→09:00)
[2018-04-28] MEDS ORDERED: D5 IVC SCH ×2 (08:30→09:00)
[2018-04-28] MEDS ORDERED: Chlorhexidine Rinse 15 ML MOUTHWASH MM SCH (09:00)
[2018-04-28 11:19] VITALS: BP 55/40
--- NOTE | 2018-04-28 11:44 | Palliative - Consult Note ---
Date of Encounter: 04/28/18 Time of Encounter: 11:00 - Assessment and Plan (1) Goals of care, counseling/discussion Current Visit: Yes Status: Acute Assessment and plan: Met with pt's sons Moe and Francisco J, as well as 2 [id number]. Discussed current medical condition, trajectory of illness and overall poor prognosis. Family at this point have decided that pt has suffered long enough, with lack of improvement. They decided for transition to DNRCC and de-escalation of care to comfort only, including palliative extubation. (2) Dyspnea Current Visit: Yes Status: Acute Assessment and plan: on Phentanyl drip, will continue Qualifiers: Dyspnea type: acute respiratory distress Qualified Code(s): R06.03 - Acute respiratory distress (3) Palliative care status Current Visit: Yes Status: Acute Assessment and plan: Palliative extubation: Discontinue all orders not related to comfort continue phentanyl drip Prepare Ativan 2 mg prn respiratory therapist to Remove ET tube. If signs of discomfort titrate fentanyl drip to comfort, Ativan IV prn Palliative-CN HPI - Data of Consult Patient: new to practice Consult date: 04/27/18 Requesting Physician: Alex Parham MD Primary Care Provider: PCP NONE - Consult Narrative Palliative Care/Comfort Measures: Palliative care Reason for consult: Palliative extubation. History of present illness: Ms. Lauren is a 63 year old female with PMH of multiple CVA and CAD, that presented to the ED on 03/25/18 for evaluation of chest pain. Successively she developed abdominal pain and diarrhea and was diagnosed with C-Diff. Hospital course was complicated by septic shock due to pneumonia, hep A, shock liver, NIGEL, GI bleed and COPD exacerbation. on 04/27/18, pt developed acute respiratry failure, was transferred to MICU and consented for intubation. Today pt was on 3 pressors, deteriorating rapidly. Palliative care consult for GOC and end-of-life care. CC: Alex Parham MD - Time Spent with Patient Time: Total time spent is greater than 50% in coordination of care (as documented) at patient's floor/unit and/or counseling patient: Greater than 35 minutes Past Med Surg Social Fam HX - Past Medical History Medical history: cancer, CHF, COPD, coronary artery disease, CVA, DVT, diabetes, hyperlipidemia, hypertension, myocardial infarction Additional medical history: GALLSTONES, HERNIA Psychiatric history: anxiety, depression - Past Surgical History Surgical History: breast surgery, cancer surgery, carotid endarterectomy, coronary bypass (CABG), LE vascular intervention Additional surgical history: cervical cancer, breast cancer - Social History Smoking Status: Current every day smoker Packs per day: 1 Smokeless Tobacco Status: No Alcohol use: none Drug use: none - Family History Mother Living Status: Hx Family Cancer: Yes (carcinoma kidney(s)) Hx Family Endocrine Disorder: Yes (DM) Medications and Allergies Aspirin [Lo-Dose Aspirin EC] 81 mg PO DAILY 01/28/17 [History] Cholecalciferol (Vitamin D3) [Vitamin D3] 1,000 unit PO DAILY 01/28/17 [History] Clopidogrel [Plavix] 75 mg PO DAILY 01/28/17 [History] Furosemide [Lasix] 40 mg PO DAILY 01/28/17 [History] Guaifenesin [Mucinex] 600 mg PO BID PRN 01/28/17 [History] Insulin ASPART [Novolog Flexpen] 10 unit SQ TIDAC MDD plus sliding sale 01/28/17 [History] Insulin Glargine,Hum.rec.anlog [Lantus Solostar] 25 unit SQ HS 01/28/17 [History] Ipratropium/Albuterol Neb [Duoneb] 3 ml IH Q6HR PRN 01/28/17 [History] Lisinopril [Zestril] 20 mg PO DAILY 01/28/17 [History] Metformin HCl [Glucophage] 1,000 mg PO BID 01/28/17 [History] Metoprolol [Lopressor] 100 mg PO BID 01/28/17 [History] Ropinirole HCl [Requip] 0.25 - 0.5 mg PO HS 01/28/17 [History] Sertraline [Zoloft] 50 mg PO DAILY 01/28/17 [History] Tiotropium [Spiriva] 1 cap IH DAILY 01/28/17 [History] Acetaminophen [Tylenol] 500 mg PO Q4H PRN 03/26/18 [History] Amitriptyline [Elavil] 25 mg PO HS 03/26/18 [History] Amlodipine Besylate 10 mg PO DAILY 03/26/18 [History] Atorvastatin [Lipitor] 40 mg PO HS 03/26/18 [History] Gabapentin [Neurontin] 300 mg PO BID 03/26/18 [History] Ibuprofen [Ibu] 600 mg PO Q6H PRN 03/26/18 [History] Multivitamin [One Daily Multivitamin] 1 tab PO DAILY 03/26/18 [History] Pantoprazole Sodium [Protonix] 40 mg PO DAILY 03/26/18 [History] SitaGLIPtin [Januvia] 100 mg PO DAILY 03/26/18 [History] Albuterol Neb [Proventil Neb] 2.5 mg IH Q4-6H PRN 03/27/18 [History] Beclomethasone Dip 40mcg REDIH [Qvar 40 mcg REDIHALER] 1 puff IH BID 03/27/18 [History] Calcium Carb/Magnesium Hydrox [Antacid Extra Strngth Tab Chew] 1 tab PO DAILY 03/27/18 [History] Allergy/AdvReac Type Severity Reaction Status Date / Time Iodinated Contrast- Oral and Allergy Anaphylaxis Verified 03/26/18 14:33 IV Dye [Iodinated Contrast Media - Oral and] ROS unobtainable: due to endotracheal tube Palliative Care-Exam - Constitutional Vitals: Temp Pulse Resp BP Pulse Ox 98 F 101 31 55/40 91 04/28/18 07:23 04/28/18 11:00 04/28/18 11:00 04/28/18 11:00 04/28/18 11:00 General appearance: Present: average body habitus, cooperative, no acute distress Exam: General appearance: intubated, not sedated, grimacing to touch Eyes: nonicteric ENT: oropharynx moist Neck: supple, no lymphadenopathy Effort: mechanical ventilation Auscultation: bilateral: diminished breath sounds, rales Cardiovascular: other (Tachycardic with regular rhythm) Gastrointestinal: distended and tympanic, hyperactive bowel sounds Integumentary: normal Extremities: no cyanosis, no edema, no clubbing Musculoskeletal: Contractured right upper and lower extremities unable to assess due to mental status Internal Medicine - CN: Reslt - Labs CBC & Chem 7: 04/28/18 03:30 04/28/18 03:30 Labs: Short CBC 04/27/18 04/28/18 Range/Units 12:15 03:30 WBC 11.0 D 1.4 L D (4.3-11.1) K/mcL Hgb 7.1 L 10.6 L D (11.5-15.4) g/dL Hct 23.3 L 33.8 L (35.3-44.9) % Plt Count 186 110 L (140-400) K/mcL Neutrophils # 10.2 H 1.0 L (1.6-8.9) K/mcL BMP 04/27/18 04/28/18 13:50 03:30 Sodium 149 H 144 Potassium 3.8 4.2 Chloride 110 H 109 H Carbon Dioxide 18 L 19 L BUN 51 H 52 H Creatinine 1.63 H 1.80 H Glucose 148 H 97 Calcium 8.1 L 7.6 L Liver Function 04/27/18 Range/Units 13:50 Total Bilirubin 0.5 (0.3-1.0) mg/dL AST 111 H (13-39) Units/L ALT 104 H (7-52) Units/L Alkaline Phosphatase 124 H (34-104) Units/L Albumin 2.0 L (3.5-5.7) g/dL - ABG Interpretation ABG results: ABG ABG pH 7.13 pH Units (7.32-7.45) L* 04/28/18 06:07 ABG pCO2 49 mmHg (35-45) H 04/28/18 06:07 ABG pO2 74 mmHg (85-104) L 04/28/18 06:07 ABG O2 Saturation 89 % (95-98) L 04/28/18 06:07 PT/INR, D-dimer PT 13.2 Seconds (9.4-12.1) H 04/19/18 06:20 - Impressions Impressions Chest X-Ray 04/27/18 11:21 IMPRESSION: Mild pulmonary edema has increased from the previous study. Small left lower lobe opacity is nonspecific and may represent atelectasis and pleural fluid, with pneumonia not excluded. D/ / 04/27/2018 12:44:55 Rommel Mendoza MD / earnold Interpreting Provider: Rommel Mendoza MD Chest X-Ray 04/27/18 22:02 IMPRESSION: 1. Life support appliances appear appropriately positioned. 2. Nonspecific pulmonary findings can be seen with ARDS, diffuse infection or edema. 3. No pneumothorax. D/ / Leo Gonzalez / Leo Gonzalez Interpreting Provider: Leo Gonzalez Consult Discharge Plan - Plan Referrals: Kathy Acosta DO [Resident] - 04/26/18 10:00 am Palliative Quality Palliative Quality: Screen for Code Status: Yes, Screen for Goals of Care: Yes, Screen for Pain: Yes, If Pain Regimen Started, Initiate Bowel Regimen: NA, Screen for Nausea/Vomitting: Yes Code Status: 03/25/18 04:50 Resuscitation Status: Active [RES] Routine Comment: Resuscitation Status: Full Code Resuscitation Status: Active [RES] Routine Comment: Resuscitation Status: DNR-Comfort Care
[2018-04-28] MEDS ORDERED: *HR* Midazolam HCl 5 MG/5 ML VIAL IVP ONE (12:04)
[2018-04-28] MEDS ORDERED: *HR* Etomidate 20 MG/10 ML AMPUL IVP ONE (12:04)
--- NOTE | 2018-04-28 12:41 | Death Note ---
<Keven Ng R - Last Filed: 04/28/18 12:58> Pronouncement Note - Date and Time of Date of : 04/28/18 Time of : 12:05 - PCOD Preliminary cause of : Septic shock - Summary Additional details: Patient was with extended hospital stay with multiple comorbidities and contributing factors. Recent decline in patient clinical status noted yesterday 04/27/2018 and patient was transferred to the ICU for critical care management. Decline in cardiopulmonary status suspected to be related to septic shock. Patient status continued to deteriorate overnight initially requiring vasopressor support and external mechanical ventilation. Later patient did require intubation overnight. This morning patient further decline requiring greater levels of supportive care. Palliative medicine meet with the family and decision was made for palliative extubation. Patient was extubated at approximately 11:35 AM on 04/28/2018. Time of was called at 12:05 PM on 04/28/2018. - Additional Data Confirmation of : no pulse, no respirations, no heart sounds, pupils fixed and dilated Family: at bedside Additional persons at bedside: other Attending/PCP notified?: Yes Attending physician: Alex Parham MD Was code activated?: No (Patient was DNR comfort care) Autopsy requested?: No lightout examiner notified?: No Organ bank notified?: No Advance directives: No <Bradley Obando - Last Filed: 04/28/18 18:14> Pronouncement Note - Summary Additional details: I examined this patient and my medical decision-making was reviewed with the Resident Physician. I agree with the documented findings, disposition and treatment plan as described except to the extent set forth below. - Additional Data Attending physician: Alex Parham MD
--- NOTE | 2018-04-28 12:44 | Discharge Summary ---
<Lucero Salas - Last Filed: 04/28/18 12:42> Orders not resulted at time of discharge: Pending orders 04/26/18 09:25 Surgical Pathology [PTH] Routine 04/28/18 22:15 Arterial Blood Gas DAILY 04/29/18 04:00 Vancomycin,Random AM 0400 04/29/18 22:15 Arterial Blood Gas DAILY 04/30/18 22:15 Arterial Blood Gas DAILY 05/01/18 22:15 Arterial Blood Gas DAILY 05/02/18 22:15 Arterial Blood Gas DAILY 05/03/18 22:15 Arterial Blood Gas DAILY 05/04/18 22:15 Arterial Blood Gas DAILY 05/05/18 22:15 Arterial Blood Gas DAILY 05/06/18 22:15 Arterial Blood Gas DAILY Date of Encounter: 04/28/18 Time of Encounter: 12:00 - Discharge Diagnosis (1) Acute and chronic respiratory failure Priority: Primary Status: Chronic (2) COPD (chronic obstructive pulmonary disease) Priority: Secondary Status: Chronic (3) Pneumonia Priority: Secondary Status: Acute (4) C. difficile colitis Priority: Secondary Status: Resolved (5) Diabetes type 2, controlled Priority: Secondary Status: Chronic (6) Anemia Priority: Secondary Status: Acute (7) Pulmonary nodule Priority: Secondary Status: Acute (8) Hepatitis A Priority: Secondary Status: Resolved (9) Sepsis Priority: Secondary Status: Acute (10) Shock liver Priority: Secondary Status: Resolved (11) NIGEL (acute kidney injury) Priority: Secondary Status: Acute (12) Hypertension Priority: Secondary Status: Acute (13) DVT prophylaxis Priority: Secondary Status: Acute (14) GI bleed Priority: Secondary Status: Acute Hospital course: Ms. Lauren is a 63 year old female with past medical history of CABG x 5, COPD (with 3 liters of oxygen at home), CHF, CAD, diabetes, hypertension, past CO and chronic indwelling Chandra secondary to urinary incontinence. Prior to admission her Chandra have been changed on 02/25/18. She was presented to the ED with chief complaints of sharp substernal chest pain that started while she was laying in bed on 03/25/18. On presentation she reported shortness of breath, chronic nausea, vomiting and loose stools for the last 2-3 months. Her chest pain was not improving with Tylenol or aspirin. She had reported weight loss of 40 pounds in the past 2 months prior to admission due to poor oral intake. 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 In the ED her EKG was normal sinus rhythm with no acute changes. Her chest x- ray was negative. Her troponins were trended and it was elevated likely due to demand ischemia. She was noted to have leukocytosis at presentation. She had no complaints of fever or chills. Patient was admitted by hospitalist and was worked up for chest pain. Aspirin, statin, metoprolol were started and Plavix was continued. Blood and urine cultures were drawn and her abnormal electrolytes were corrected. She was also felt consulted to evaluate for weight loss. Cardiology was consulted and concluded she suffered an NSTEMI in the setting of UTI and sepsis. She had a TTE which showed LVEF of 70%, hyperdynamic LV systolic dysfunction with mid cavity obliteration, mild LV diastolic dysfunction, normal right ventricular structure and function, no significant valvular dysfunction, and no pulmonary hypertension. On day 2 of admission she continued to complain of diffuse abdominal pain. Right upper quadrant ultrasound showed cholelithiasis without acute cholecystitis and dilated common bile duct [address] of the abdomen showed mild/moderate dilated loops of bowel. White count was 43. Surgery was contacted for possible ileus but recommend medical management. Her white count continued to remain elevated and her oxygen demand also increased. She was found to have C. difficile as well as community-acquired pneumonia. Infectious disease was consulted for antibiotic management daily recommended ceftriaxone, IV vancomycin and oral vancomycin. She also had bilateral pleural effusions and required IV Lasix. Even with medical management and antibiotic regimen her abdominal pain continued and surgery was reconsulted for concern of cholelithiasis. Surgery recommended medical management. She had an NG tube placed and had symptom improvement and abdominal pain as well as multiple bowel movements. Was able to tolerate solid diet without pain or vomiting Pulmonology was consulted for acute on chronic respiratory failure on 04/05/18. He recommended prednisone 40 mg to 12 day taper as well as flutter valve and incentive spirometry to improve lung function. Gastroenterology was also consulted for recommendations for abdominal pain as well as C. difficile and had planned a sigmoidoscopy inpatient. On 04/12/18 he developed severe sepsis with elevated lactic acidosis as well as elevated transaminases suggesting shock liver. Her AST was 2981 and ALT was above 500 as well as a positive hepatitis A antibody. She was transferred to the ICU. In the ICU nephrology was consulted she had a temporary hemodialysis catheter that was placed and required hemodialysis in ICU. ICU she had a sigmoidoscopy which did not show any acute findings within her colon. Her respiratory status improved and she was transferred to inpatient unit. Her symptoms including diarrhea and oxygen demand was slowly improving however she appeared to be volume overloaded and went into respiratory failure again on 04/23/18. She was given IV lasix and placed on BiPAP, and her respiratory status seemed to be improving slowly. On 04/24/18 infectious disease stopped oral vancomycin and IV Zosyn. She had completed 29 days of oral vancomycin and 13 days of Zosyn. Later that evening she was noted to have bloody bowel movements. Blood pressure stayed stable. She received 2 units of packed red blood cells. On 04/26/18 she had an upper EGD which did not show any gastritis or bleeding ulcers but there were esophageal nodules noted that were biopsied. With ongoing bloody bowel movements and elevated white count oral vancomycin was restarted at high dose on 04/26/18. On 04/27/18 she had worsening respiratory status with oxygen saturation of 63%. Her ABG showed mixed metabolic acidosis and respiratory acidosis. She was put on BiPAP and transferred to ICU. She went into septic shock with significant elevated lactic acid above 10. Broad spectrum antibiotics were started again. She was also placed on three vasopressors and was intubated last night. Even with the three vasopressors her blood pressure continued to decline. Chest xray showed ARDS and she started having a lot of oral secretions from the NG tube, concerning for small bowel obstruction. Overall she had a very poor prognosis with all the above mentioned comorbidities. Diagnostic Cardiac Sonographer, Dr. Obando spoke with the family and they decided to withdraw care. Patient was then extubated in the presence of Palliative care and at 12:05 she was pronounced. Discharge discussed with: patient - Time Spent with Patient Total time spent providing and/or coordinating discharge services: - Discharge Medications Allergies/Adverse Reactions: Allergy/AdvReac Type Severity Reaction Status Date / Time Iodinated Contrast- Oral and Allergy Anaphylaxis Verified 03/26/18 14:33 IV Dye [Iodinated Contrast Media - Oral and] Date of admission: 03/25/18 05:29 Primary care physician: PCP NONE Consults: 03/25/18 05:43 Consult to Nutrition [CONS] Routine Comment: Consulting Provider: NUTRITION Reason for Dietary Consult: MST Score 03/25/18 10:11 Consult to Beauty Director [CONS] Stat Reason for SW Consult: has [place] [facility], may need ECF placement 03/25/18 10:24 Consult to Cardiology [CONS] Routine Comment: Consulting Provider: Cardiology Ruthie Reason for Consult: Chest pain, elevated trop Call Completed: Yes 03/26/18 17:26 Consult to Surgery [CONS] Routine Consulting Provider: Monroe Grover Reason for Consult: ileus Time Notified: 17:26 Call Completed: Yes 04/02/18 15:14 Consult to Infectious Diseases [CONS] Routine Consulting Provider: Infectious Disease [employer] Reason for Consult: persistent leukocytosis, positive c diff, questionable pneumonia Call Completed: No 04/05/18 09:25 Consult to Gastroenterology [CONS] Routine Consulting Provider: Gastroenterology Ruthie Reason for Consult: c diff, on oral vanc day 9. Abdominal pain worsening Call Completed: Yes 04/05/18 09:26 Consult to Occupational Therapy [CONS] Routine Comment: Evaluate, develop and implement POC Reason for Consult: Only uses left arm due to right sided paralysis. Feeling more pain of the left arm. Does patient have active BEDREST order?: Yes Is patient medically & hemodynamically stable?: Yes Consult to Physical Therapy [CONS] Routine Comment: Evaluate, develop and implement POC Reason for Consult: Right sided paralysis, left arm and right leg hurting. Doppler negative. History or arthritis. Does patient have active BEDREST order?: Yes Is patient medically & hemodynamically stable?: Yes 04/05/18 09:43 Consult to Pulmonology [CONS] Routine Consulting Provider: Pulm Crit Care & Sleep [employer] Reason for Consult: pneumonia diagnosed clinically and based on imaging on 03/27. Day 8 on zosyn. History of copd and home oxygen of 4 liters. Call Completed: Yes 04/05/18 14:52 Consult to Respiratory Therapy [CONS] Routine Reason for Consult: For flutter valve. COPD. Call Completed: No 04/08/18 08:52 Consult to Invasive Line Access Team [CONS] Routine Reason for Consult: No IV access Line Type: EPIV 04/08/18 23:16 Consult to Gastroenterology [CONS] Routine Consulting Provider: Gastroenterology Ruthie Reason for Consult: Patient has bloody liquid stool that was discovered as pt. was going to CT for CT of the chest. Call Completed: No 04/12/18 08:12 Consult to Critical Care [CONS] Routine Consulting Provider: Pulm Crit Care & Sleep Ruthie Reason for Consult: critical care management, sepsis, refractory c diff Call Completed: Yes 04/12/18 08:30 Consult to Invasive Line Access Team [CONS] Stat Reason for Consult: limited access Line Type: EPIV 04/12/18 13:27 Consult to Interventional Radiology [CONS] Routine Consulting Provider: Radiology Interventional Cols Reason for Consult: CVC Call Completed: Yes Consult to Nephrology [CONS] Routine Consulting Provider: Kidney Ruthie/SHAY/HAZEL/LEE Reason for Consult: NIGEL, hyperkalemia Call Completed: Yes 04/15/18 15:20 Consult to Speech Therapy [CONS] Routine Comment: Evaluate, develop and implement POC Reason for Consult: swallow eval Call Completed: No 04/27/18 12:05 Consult to Palliative Care [CONS] Routine Comment: Consulting Provider: Palliative Care [employer] Reason for Consult: goals of care Call Completed: No 04/27/18 15:00 Consult to Invasive Line Access Team [CONS] Routine Reason for Consult: Picc Line Insertion Line Type: PICC Discharging clinician: Lucero Salas Anticipated date of discharge: 04/28/18 - Constitutional Vitals: Temp Pulse Resp BP Pulse Ox 98 F 101 31 55/40 91 04/28/18 07:23 04/28/18 11:00 04/28/18 11:00 04/28/18 11:00 04/28/18 11:00 General appearance: Present: A&O X 0 Exam: was intubated in the morning and later extubated - Head Head exam: Present: atraumatic, normocephalic - Respiratory Additional comments: No breath sounds - Cardiovascular Additional comments: No heart sounds - Patient Status Disposition: - Discharge Instructions Follow Up With: Kathy Acosta DO [Resident] - 04/26/18 10:00 am Forms: ED Satisfaction Letter - VTE Documentation of Mechanical Device: Intermittent pneumatic compression device <Alex Parham - Last Filed: 04/28/18 15:09> Orders not resulted at time of discharge: Pending orders 04/26/18 09:25 Surgical Pathology [PTH] Routine - Discharge Diagnosis (1) COPD (chronic obstructive pulmonary disease) Status: Chronic Qualifiers: COPD type: chronic bronchitis Chronic bronchitis type: mucopurulent Qualified Code(s): J41.1 - Mucopurulent chronic bronchitis (2) Pneumonia Status: Acute Qualifiers: Pneumonia type: due to unspecified organism Laterality: left Lung location: lower lobe of lung Qualified Code(s): J18.1 - Lobar pneumonia, u nspecified organism (3) C. difficile colitis Status: Resolved (4) Diabetes type 2, controlled Status: Chronic Qualifiers: Diabetes mellitus sports coordinator insulin use: with sports coordinator use Diabetes mellitus complication status: with hyperglycemia Qualified Code(s): E11.65 - Type 2 diabetes mellitus with hyperglycemia; Z79.4 - FPC (current) use of insulin (5) Anemia Status: Acute Qualifiers: Anemia type: iron deficiency Iron deficiency anemia type: chronic blood loss Qualified Code(s): D50.0 - Iron deficiency anemia secondary to blood loss (chronic) (6) Pulmonary nodule Status: Acute (7) Hepatitis A Status: Resolved Qualifiers: Hepatic coma status: without hepatic coma Qualified Code(s): B15.9 - Hepatitis A without hepatic coma (8) Sepsis Status: Acute Qualifiers: Sepsis type: sepsis due to unspecified organism Qualified Code(s): A41.9 - Sepsis, unspecified organism (9) DVT prophylaxis Status: Acute (10) Shock liver Status: Resolved (11) NIGEL (acute kidney injury) Status: Acute (12) Hypertension Status: Acute Qualifiers: Hypertension type: essential hypertension Qualified Code(s): I10 - Essential (primary) hypertension (13) Acute and chronic respiratory failure Status: Chronic Qualifiers: Respiratory failure complication: hypoxia and hypercapnia Qualified Code(s): J96.21 - Acute and chronic respiratory failure with hypoxia; J96.22 - Acute and chronic respiratory failure with hypercapnia (14) GI bleed Status: Acute Qualifiers: GI bleed type/associated pathology: unspecified gastrointestinal hemorrhage type Qualified Code(s): K92.2 - Gastrointestinal hemorrhage, unspecified Hospital course: Ms. Lauren is a 63 year old female - Time Spent with Patient Total time spent providing and/or coordinating discharge services: Date of admission: 03/25/18 05:29 Primary care physician: PCP NONE Consults: 03/25/18 05:43 Consult to Nutrition [CONS] Routine Comment: Consulting Provider: NUTRITION Reason for Dietary Consult: MST Score 03/25/18 10:11 Consult to Beauty Director [CONS] Stat Reason for SW Consult: has [place] H.H, may need ECF placement 03/25/18 10:24 Consult to Cardiology [CONS] Routine Comment: Consulting Provider: Cardiology Ruthie Reason for Consult: Chest pain, elevated trop Call Completed: Yes 03/26/18 17:26 Consult to Surgery [CONS] Routine Consulting Provider: Monroe Grover Reason for Consult: ileus Time Notified: 17:26 Call Completed: Yes 04/02/18 15:14 Consult to Infectious Diseases [CONS] Routine Consulting Provider: Infectious Disease Ruthie Reason for Consult: persistent leukocytosis, positive c diff, questionable pneumonia Call Completed: No 04/05/18 09:25 Consult to Gastroenterology [CONS] Routine Consulting Provider: Gastroenterology Ruthie Reason for Consult: c diff, on oral vanc day 9. Abdominal pain worsening Call Completed: Yes 04/05/18 09:26 Consult to Occupational Therapy [CONS] Routine Comment: Evaluate, develop and implement POC Reason for Consult: Only uses left arm due to right sided paralysis. Feeling more pain of the left arm. Does patient have active BEDREST order?: Yes Is patient medically & hemodynamically stable?: Yes Consult to Physical Therapy [CONS] Routine Comment: Evaluate, develop and implement POC Reason for Consult: Right sided paralysis, left arm and right leg hurting. Doppler negative. History or arthritis. Does patient have active BEDREST order?: Yes Is patient medically & hemodynamically stable?: Yes 04/05/18 09:43 Consult to Pulmonology [CONS] Routine Consulting Provider: Pulm Crit Care & Sleep Ruthie Reason for Consult: pneumonia diagnosed clinically and based on imaging on 03/27. Day 8 on zosyn. History of copd and home oxygen of 4 liters. Call Completed: Yes 04/05/18 14:52 Consult to Respiratory Therapy [CONS] Routine Reason for Consult: For flutter valve. COPD. Call Completed: No 04/08/18 08:52 Consult to Invasive Line Access Team [CONS] Routine Reason for Consult: No IV access Line Type: EPIV 04/08/18 23:16 Consult to Gastroenterology [CONS] Routine Consulting Provider: Gastroentercorbin Hendricks Reason for Consult: Patient has bloody liquid stool that was discovered as pt. was going to CT for CT of the chest. Call Completed: No 04/12/18 08:12 Consult to Critical Care [CONS] Routine Consulting Provider: Pulm Crit Care & Sleep Ruthie Reason for Consult: critical care management, sepsis, refractory c diff Call Completed: Yes 04/12/18 08:30 Consult to Invasive Line Access Team [CONS] Stat Reason for Consult: limited access Line Type: EPIV 04/12/18 13:27 Consult to Interventional Radiology [CONS] Routine Consulting Provider: Radiology Interventional Cols Reason for Consult: CVC Call Completed: Yes Consult to Nephrology [CONS] Routine Consulting Provider: Kidney Ruthie/SHAY/HAZEL/LEE Reason for Consult: NIGEL, hyperkalemia Call Completed: Yes 04/15/18 15:20 Consult to Speech Therapy [CONS] Routine Comment: Evaluate, develop and implement POC Reason for Consult: swallow eval Call Completed: No 04/27/18 12:05 Consult to Palliative Care [CONS] Routine Comment: Consulting Provider: Palliative Care Ruthie Reason for Consult: goals of care Call Completed: No 04/27/18 15:00 Consult to Invasive Line Access Team [CONS] Routine Reason for Consult: Picc Line Insertion Line Type: PICC - Constitutional Vitals: Temp Pulse Resp BP Pulse Ox 98 F 101 31 55/40 91 04/28/18 07:23 04/28/18 11:00 04/28/18 11:00 04/28/18 11:00 04/28/18 11:00 - Attending Attestation I examined this patient and my medical decision-making was reviewed with the Resident Physician Dr. Salas. I agree with the documented findings, disposition and treatment plan as described except to the extent set forth below. Ms. Lauren is a 63 year old female history of COPD on 3 L oxygen at home admitted here with Sepsis, Pneumonia, developed C. Diff colitis and respiratory failure was transferred to ICU and moved to [facility] again when pt got stabilized. Pt went into acute hypoxic resp failure on 04/23/18. Now she is breathing comfortably on 4 lit O2. She denied any CP. She i s alert, awake and O x 3. She still having melena / dark colored stools started this afternoon again. She is c/o severe lower abdominal pain too..y/d she went into Acute hypoxic resp failure as well as septic shock. Pt was transferred to ICU and resumed empirical abx Zosyn , Vanc and started her on vasopressor Levophed. Her condition got worsened she got intubated last night and required 3 vasopressors. This morning when I saw her in ICU she was on 3 vaso pressors and BP still in 50-60's. Seems to be overall very poor prognosis. At this point pt's both sons decided to withdraw her care. Pt was extubated with palliative care team help. She was pronounced at 12.05. Talked to pt's family at bed side and answered all their questions. a/p 1. Acute on chronic hypoxic resp failure / VDRF 2. Acute COPD exacerbation 3. Acute multi focal Pneumonia - bacterial 4. Septic shock 5. ARDS 6. C. Diff colitis 7. Acute GI bleed / melena 8. NIGEL with CKD-3
== END 2018-04-28 12:05 | disposition expired | DRG 720 ==
LOC: 3ANU 23:58 → EMEROOARM 23:58 → 3ANU 03-25 05:28 → SUATTDRO 03-25 05:29 → 3ANU 03-27 10:47 → ICNU 04-12 07:59 → 2NNU 04-15 20:15 → 2ANU 04-21 09:44 → ICNU 04-27 12:18
PROVIDERS: ADMIT Internal Medicine; ATTEND Family Medicine
PROC: ENDOEBX (2018-04-26 18:10)